=== PATIENT | female | born 1985 | race Caucasian/White ===

== ENCOUNTER 2023-06-13 20:12 | Outpatient (REF) | payer OTHER, SELFPAY ==
[2023-06-17 13:09] LABS: Age Gdln ACOG Testing Note (.); HPV Aptima Negative (Negative); IGP, Aptima HPV, rfx 16/18,45 Note (.)
== END 2023-06-13 20:13 | disposition home or self-care (01) ==
LOC: LAB 20:12
PROVIDERS: Visit Provider Obstetrics & Gynecology
DX: Z01.419 Encounter for gynecological examination (general) (routine) without abnormal findings (principal)
CPT/HCPCS: 87624; G0145

== ENCOUNTER 2024-06-14 18:54 | Outpatient (REF) | payer OTHER, SELFPAY ==
--- OUTSIDE RECORDS SUMMARY | 2024-06-14 19:08 | XMS_ITS | CCD ---
Author Organization [facility] Care Team Providers Care Collator Hand Name Role Phone DONAVANJENNINICHOLE Cao Attending Unavailable MARIAM HICKMAN Referring Unavailable NEO MONTALVO Primary Care Unavailable Les Bridges Admitting Unavailable Les Bridges Attending Unavailable NEO MONTALVO Primary Care Unavailable HyannisLes saldaña RJeffy Admitting Unavailable Les Bridges Attending Unavailable Lisa Lord Attending Unavailable NEO MONTALVO Primary Care Unavailable Lisa Lord Admitting Unavailable NO, PHYSICIAN Primary Care Unavailable EMILI EDOUARD Attending Unavailable EMILI EDOUARD Admitting Unavailable EMILI EDOUARD Referring Unavailable NO, PHYSICIAN Primary Care Unavailable Junior, Evi Primary Care Provider [phone] Juan Rochelle Unavailable Unavailable Juan, Rochelle Unavailable Unavailable Juan, Rochelle Unavailable Unavailable Juan, Rochelle Unavailable Unavailable Juan Rochelle Unavailable Unavailable Evi Pacheco Primary Care Provider [phone] No, Physician Primary Care Provider Unavailabl e No, Physician Primary Care Provider Unavailabl e Santiago James Primary Care Provider Evi Pacheco MD Primary Care Provider Juan LARA Rohcelle Unavailable Unavailable Evi Pacheco MD Primary Care Provider [phone] Juan LARA Rochelle Unavailable Unavailable JUNIOR, EVI Primary Care Unavailable JUNIOR, EVI Admitting Unavailable JUNIOR, EVI Primary Care Unavailable JUNIOR, EVI Primary Care Unavailable KULDEEP PURCELL Attending Unavailable SERENITY MONTENEGRO Attending Unavailable SERENITY MONTENEGRO Referring Unavailable JUNIOR, EVI Primary Care Unavailable JUNIOR, EVI Primary Care Unavailable LAMBERTO RUSSO Attending Unavailable LAMBERTO RUSSO Referring Unavailable JUNIOR, EVI Primary Care Unavailable LAMBERTO RUSSO Attending Unavailable LAMBERTO RUSSO Referring Unavailable JUNIOR, EVI Primary Care Unavailable LAMBERTO RUSSO Attending Unavailable LAMBERTO RUSSO Referring Unavailable JUNIOR, EVI Primary Care Unavailable LAMBERTO RUSSO Attending Unavailable LAMBERTO RUSSO Referring Unavailable JUNIOR, EVI Primary Care Unavailable LAMBERTO RUSSO Attending Unavailable LAMBERTO RUSSO Referring Unavailable JUNIOR, EVI Primary Care Unavailable JUNIOR, EVI Primary Care Unavailable JUNIOR, EVI Attending Unavailable JUNIOR, EVI Referring Unavailable JUNIOR, EVI Primary Care Unavailable LAMBERTO RUSSO Attending Unavailable LAMBERTO RUSSO Referring Unavailable JUNIOR, EVI Primary Care Unavailable Juan ASSEMBLER CHASSIS, Rochelle Unavailable Unavailable SELF, SELF Referring Unavailable MARIA GUADALUPE SINGH Attending Unavailable Junior ALATORRE, [place] Primary Care Provider [phone] Juan LARA, Rochelle Unavailable Unavailable OCTAVIANO, DR ABURTO Attending Unavailable OCTAVIANO, DR ABURTO Consulting Unavailable REQUEST, NONE LISTED Primary Care Unavaila ble OCTAVIANO, DR ABURTO Admitting Unavailable OCTAVIANO, DR ABURTO Admitting Unavailable OCTAVIANO, DR ABURTO Attending Unavailable OCTAVIANO, DR ABURTO Consulting Unavailable REQUEST, NONE LISTED Primary Care Unavaila MARIA GUADALUPE Larson Consulting Unavailable Junior ALATORRE, [place] Primary Care Provider [phone] Juan ASSEMBLER CHASSIS, Rochelle Unavailable Unavailable CRISELDA VIVEROS Attending Unavailable JUNIOR, EVI Primary Care Unavailable BETINA POP Admitting Unavail able JUNIOR, EVI Primary Care Unavailable BETINA POP Referring Unavail able LAMBERTO RUSSO Attending Unavailable JUNIOR, EVI Primary Care Unavailable LAMBERTO RUSSO Attending Unavailable JUNIOR, EVI Primary Care Unavailable JUNIOR, EVI Primary Care Unavailable LAMBERTO RUSSO Attending Unavailable LAMBERTO RUSSO Attending Unavailable JUNIOR, EVI Primary Care Unavailable DAVON LÓPEZ Referring Unavailable Marcia GRIMM Primary Care Unavailable JUNIOR, EVI Primary Care Unavailable BETINA POP Attending Unavail able JUNIOR, EVI Primary Care Unavailable BETINA POP Attending Unavail able JUNIOR, EVI Primary Care Unavailable BETINA POP Attending Unavail EVI Fagan Primary Care Unavailable BETINA POP Attending Unavail able EVI PACHECO Primary Care Unavailable BETINA POP Attending Unavail able EVI PACHECO Primary Care Unavailable BETINA POP Attending Unavail able BETINA POP Attending Unavail able EVI PACHECO Primary Care Unavailable Allergies Allergy Classification Reported Allergen(s) Allergy Type Date of Onset Reaction(s) Facility (1 source) No Known Medication Allergies; Translations: [No Known Medication Allergies] Propensity to adverse reactions to drug (disorder) Repository Medications Current Medications Medication Drug Class(es) Dates Sig (Normalized) Sig (Original) acetaminophen 325 mg oral tablet (20 sources) take 2 tablets by mouth every six hours as needed acetaminophen (TYLENOL) 325 MG tablet Take 650 mg by mouth every 6 (six) hours as needed for pain . 0 Active [id number] actuat albuterol 0.09 mg/actuat metered dose inhaler (20 sources) beta2-Adrenergic Agonist Start: 06-08-2021 End: 06-08-2022 take 2 puff(s) by inhalation every six hours as needed for cough albuterol 90 mcg/actuation inhaler Indications: Cough Inhale 2 (two) puffs every 6 (six) hours as needed for shortness of breath or cough . 18 g 06/08/2021 Active amoxicillin 875 mg / clavulanate 125 mg oral tablet (1 source) Penicillin-class Antibacterial Start: 10-10-2020 End: 10-17-2020 take 1 tablet by mouth twice daily amoxicillin-clavul anate (AUGMENTIN) 875-125 mg per tablet Indications: Sinusitis, unspecified chronicity, unspecified location Take 1 (one) tablet by mouth 2 (two) times a day for 7 days . 14 tablet 0 10/10/2020 10/17/2020 Active aspirin 81 mg delayed release oral tablet (19 sources) Platelet Aggregation Inhibitor, Nonsteroidal Anti-inflammatory Drug take 1 tablet by mouth once daily aspirin 81 MG EC tablet Take 81 mg by mouth daily . 0 Active benzonatate 200 mg oral capsule (3 sources) Non-narcotic Antitussive Start: 06-08-2021 End: 06-15-2021 take 1 capsule by mouth three times daily as needed for cough benzonatate (TESSALON) 200 MG capsule Indications: Cough Take 1 (one) capsule (200 mg total) by mouth 3 (three) times a day as needed for cough . 20 capsule 0 06/08/2021 06/15/2021 Active Start: 10-10-2020 End: 10-17-2020 take 1 capsule by mouth three times daily as needed for cough benzonatate (TESSALON) 200 MG capsule Indications: Sinusitis, unspecified chronicity, unspecified location Take 1 (one) capsule (200 mg total) by mouth 3 (three) times a day as needed for cough . 20 capsule 0 10/10/2020 10/17/2020 Active Budesonide / formoterol (20 sources) Corticosteroid, beta2-Adrenergic Agonist Start: 06-02-2021 take 2 puff(s) by inhalation twice daily budesonide-formoteroL (Symbicort) 80-4.5 mcg/actuation inhaler Indications: Mild intermittent asthma, unspecified whether complicated Inhale 2 (two) puffs 2 (two) times a day . 1 each 2 06/02/2021 Active Start: 06-02-2021 End: 06-02-2022 take 2 puff(s) by inhalation twice daily budesonide-formoteroL (Symbicort) 80-4.5 mcg/actuation inhaler Indications: Mild intermittent asthma, unspecified whether complicated Inhale 2 (two) puffs 2 (two) times a day . 1 each 2 06/02/2021 06/02/2022 Active 24 hr buPROPion hydrochloride 300 mg extended release oral tablet (20 sources) Aminoketone Start: 03-15-2023 End: 04-17-2024 take 1 tablet by mouth once daily buPROPion (WELLBUTRIN XL) 300 MG 24 hr tablet Indications: Atypical eating disorder Take 1 (one) tablet (300 mg total) by mouth daily . 30 tablet 2 04/17/2024 Active Start: 01-21-2023 take 1 tablet by lakia once daily buPROPion (WELLBUTRIN XL) 300 MG 24 hr tablet Indications: Atypical eating disorder Take 1 (one) tablet (300 mg total) by mouth daily . 30 tablet 1 01/21/2023 Active Start: 10-27-2022 End: 12-10-2022 take 1 tablet by mouth once daily buPROPion (WELLBUTRIN XL) 300 MG 24 hr tablet Indications: Atypical eating disorder Take 1 (one) tablet (300 mg total) by mouth daily . 30 tablet 1 12/10/2022 Active Start: 01-06-2022 End: 09-08-2023 take 1 tablet by mouth once daily buPROPion (WELLBUTRIN XL) 150 MG 24 hr tablet Indications: Atypical eating disorder Take 1 (one) tablet (150 mg total) by mouth daily . 30 tablet 1 09/08/2022 10/27/2022 Discontinued (Reorder (Suppress CancelRx Message to Pharmacy)) Start: 04-24-2020 End: 01-06-2022 take 1 tablet by mouth once daily buPROPion (WELLBUTRIN XL) 300 MG 24 hr tablet Indications: Anxiety and depression Take 1 (one) tablet (300 mg total) by mouth daily . 30 tablet 11 04/24/2020 01/06/2022 Discontinued Start: 04-23-2020 End: 04-23-2021 take 1 tablet by mouth once daily buPROPion (Wellbutrin XL) 150 MG 24 hr tablet Indications: Anxiety and depression Take 1 (one) tablet (150 mg total) by mouth daily . 30 tablet 11 04/23/2020 04/23/2021 Active Start: 12-20-2019 End: 12-19-2020 take 1 tablet by mouth twice daily buPROPion (WELLBUTRIN SR) 150 MG 12 hr tablet Indications: Anxiety and depression Take 1 (one) tablet (150 mg total) by mouth 2 (two) times a day . 60 tablet 11 12/20/2019 04/23/2020 Discontinued Start: 11-16-2019 End: 11-15-2020 take 1 tablet by mouth twice daily buPROPion (WELLBUTRIN) 100 MG tablet Indications: Anxiety and depression Take 1 (one) tablet (100 mg total) by mouth 2 (two) times a day . 60 tablet 1 11/16/2019 11/15/2020 Active Start: 10-29-2019 End: 11-16-2019 take 1 tablet by mouth twice daily buPROPion (WELLBUTRIN) 75 MG tablet Indications: Anxiety and depression Take 1 (one) tablet (75 mg total) by mouth 2 (two) times a day . 60 tablet 0 10/29/2019 11/16/2019 Discontinued codeine phosphate 2 mg/ml / guaiFENesin 20 mg/ml oral solution (2 sources) Opioid Agonist Start: 06-08-2021 End: 06-18-2021 codeine-guaiFENesin (TUSSI-ORGANIDIN NR) 10-100 mg/5 mL syrup Indications: Cough Take 5 mL by mouth 3 (three) times a day as needed for cough (Days supply per fill: 10) . 118 mL 0 06/08/2021 06/18/2021 Active docusate sodium 50 mg / sennosides, fpc 8.6 mg oral tablet (1 source) Start: 04-17-2024 take 1 tablet by mouth once daily senna-docusate (SENNA-S) 8.6-50 mg Indications: Constipation, unspecified constipation type Take 1 (one) tablet by mouth daily . 30 tablet 5 04/17/2024 Active dulaglutide (20 sources) GLP-1 Receptor Agonist Start: 04-17-2024 dulaglutide (Trulicity) 4.5 mg/0.5 mL Pen Indications: Insulin resistance Inject 0.5 mL (4.5 mg total) under the skin every 7 days . 2 mL 5 04/17/2024 Active Start: 03-13-2024 dulaglutide (T rulicity) 3 mg/0.5 mL Pen Indications: Insulin resistance Inject 0.5 mL (3 mg total) under the skin every 7 days . 2 mL 2 03/13/2024 Active Start: 04-15-2022 End: 06-17-2022 dulaglutide (Trulicity) 3 mg /0.5 mL Pen Indications: Insulin resistance Inject 0.5 mL (3 mg total) under the skin every 7 days . 2 mL 1 04/15/2022 06/17/2022 Discontinued Start: 04-15-2022 dulaglutide (T rulicity) 3 mg/0.5 mL Pen Indications: Insulin resistance Inject 0.5 mL (3 mg total) under the skin every 7 days . 2 mL 1 04/15/2022 Active Start: 02-11-2022 End: 04-15-2022 dulaglutide (Trulicity) 1.5 mg/0.5 mL Pen Indications: Insulin resistance Inject 0.5 mL (1.5 mg total) under the skin every 7 days . 2 mL 1 03/15/2022 04/15/2022 Discontinued Start: 11-30-2021 End: 02-11-2022 dulaglutide (Trulicity) 0.75 mg/0.5 mL Pen Indications: Insulin resistance Inject 0.5 mL (0.75 mg total) under the skin every 7 days Failed metformin . 2 mL 1 01/06/2022 02/11/2022 Discontinued Start: 07-03-2021 End: 09-09-2021 dulaglutide (Trulicity) 0.75 mg/0.5 mL Pen Inject 0.5 mL (0.75 mg total) under the skin every 7 days On hold for metformin trial . 2 mL 0 07/31/2021 09/09/2021 Discontinued ergocalciferol 1.25 mg oral capsule (20 sources) Provitamin D2 Compound Start: 07-14-2023 take 1 capsule by mouth two times weekly at mealtime ergocalciferol (ERGOCALCIFEROL) 1,250 mcg (50,000 unit) capsule Indications: Vitamin D deficiency Take 1 (one) capsule (50,000 Units total) by mouth twice weekly Take with 500mg vitamin c and fatty meal . 8 capsule 1 07/14/2023 Active Start: 04-28-2021 End: 01-27-2024 take 1 capsule by mouth every week at mealtime ergocalciferol (ERGOCALCIFEROL) 1,250 mcg (50,000 unit) capsule Indications: Vitamin D deficiency Take 1 (one) capsule (50,000 Units total) by mouth once a week Take with 500mg vitamin c and fatty meal . 4 capsule 1 01/27/2023 07/14/2023 Discontinued (Reorder (Suppress CancelRx Message to Pharmacy)) ferrous sulfate 325 mg oral tablet (20 sources) Start: 04-28-2021 End: 01-06-2023 take 1 tablet by mouth every other day ferrous sulfate 325 (65 FE) MG tablet Indications: Iron deficiency Take 1 (one) tablet (325 mg total) by mouth every other day Take with 500mg of vitamin c . 15 tablet 1 01/06/2022 Active FLUoxetine 40 mg oral capsule (15 sources) Serotonin Reuptake Inhibitor Start: 09-05-2020 End: 12-04-2020 take 1 capsule by mouth once daily FLUoxetine (PROZAC) 40 MG capsule Indications: Anxiety and depression Take 1 (one) capsule (40 mg total) by mouth daily . 90 capsule 0 09/05/2020 Active Start: 06-10-2020 End: 09-08-2020 take 1 capsule by mouth once daily FLUoxetine (PROZAC) 20 MG capsule Indications: Anxiety and depression Take 1 (one) capsule (20 mg total) by mouth daily . 90 capsule 0 06/10/2020 09/05/2020 Discontinued (Reorder) furosemide 20 mg oral tablet (20 sources) Loop Diuretic take 1 tablet by mouth once daily as needed furosemide (LASIX) 20 MG tablet Indications: edema Take 1 (one) tablet (20 mg total) by mouth daily as needed Reasons: visible water retention. Active take 1 tablet by mouth twice key ly furosemide (LASIX) 20 MG tablet Indications: edema Take 1 (one) tablet (20 mg total) by mouth 2 (two) times a day Reasons: visible water retention. 0 Active ibuprofen 800 mg oral tablet (20 sources) Nonsteroidal Anti-inflammatory Drug take 1 tablet by mouth every six hours as needed ibuprofen (ADVIL,MOTRIN) 800 MG tablet Take 800 mg by mouth every 6 (six) hours as needed for pain . 0 Active inhaler, assist devices (OPTICHAMBER ADVANTAGE) Spcr (20 sources) Start: 06-02-20 inhaler, assist devices (OPTICHAMBER ADVANTAGE) Spcr Indications: Mild intermittent asthma, unspecified whether complicated As directed . 1 each 06/02/2021 Active Start: 06-02-2021 inhaler, german t devices (OPTICHAMBER ADVANTAGE) Spcr Indications: Mild intermittent asthma, unspecified whether complicated As directed . 1 each 0 06/02/2021 Active levothyroxine sodium 0.15 mg oral tablet (20 sources) l-Thyroxine Start: 01-27-2023 take 1 tablet by mouth once daily levothyroxine (SYNTHROID, LEVOTHROID) 150 MCG tablet Take 1 (one) tablet (150 mcg total) by mouth once daily . 30 tablet 1 01/27/2023 Active Start: 02-12-2022 End: 01-27-2023 take 1 tablet by mouth once daily levothyroxine (SYNTHROID, LEVOTHROID) 137 MCG tablet Take 1 (one) tablet (137 mcg total) by mouth once daily . 30 tablet 1 01/12/2023 01/27/2023 Discontinued (Reorder (Suppress CancelRx Message to Pharmacy)) Start: 01-06-2022 End: 02-12-2022 take 1 tablet by mouth once daily in the morning levothyroxine (SYNTHROID, LEVOTHROID) 150 MCG tablet Indications: Other specified hypothyroidism Take 1 (one) tablet (150 mcg total) by mouth every morning . 30 tablet 1 01/06/2022 02/12/2022 Discontinued Start: 04-28-2021 End: 06-02-2022 take 1 tablet by mouth once daily in the morning levothyroxine (SYNTHROID, LEVOTHROID) 175 MCG tablet Indications: Other specified hypothyroidism Take 1 (one) tablet (175 mcg total) by mouth every morning . 30 tablet 3 06/02/2021 01/06/2022 Discontinued (Reorder) Start: 08-24-2019 End: 09-01-2021 take 1 tablet by mouth once daily levothyroxine (SYNTHROID, LEVOTHROID) 200 MCG tablet Indications: Other specified hypothyroidism Take 1 (one) tablet (200 mcg total) by mouth once daily . 90 tablet 1 09/01/2020 04/28/2021 Discontinued (Reorder) Start: 01-05-2019 End: 12-26-2020 take 1 tablet by mouth once daily levothyroxine (SYNTHROID, LEVOTHROID) 25 MCG tablet Indications: Other specified hypothyroidism Take 1 (one) tablet (25 mcg total) by mouth daily . 90 tablet 1 12/27/2019 12/26/2020 Active End: 08-24-2019 take 1 tablet by mouth once daily levothyroxine (SYNTHROID, LEVOTHROID) 175 MCG tablet Take 175 mcg by mouth daily . 0 08/24/2019 Discontinued ondansetron 4 mg disintegrating oral tablet (20 sources) Serotonin-3 Receptor Antagonist Start: 11-30-2021 End: 12-07-2021 take 1 tablet by mouth every eight hours as needed for nausea ondansetron (ZOFRAN-ODT) 4 MG disintegrating tablet Dissolve 1 (one) tablet (4 mg total) on top of tongue every 8 (eight) hours as needed for nausea . 20 tablet 11/30/2021 Active prenat.vits,ronny,min- iron-folic Tab (20 sources) prenat.vits,ronny, min- iron-folic Tab Take by mouth . 0 Active pyridoxine hydrochloride 25 mg oral tablet (20 sources) Start: 04-28-2021 End: 04-28-2022 take 1 tablet by mouth once daily pyridoxine, vitamin B6, (vitamin B-6) 25 MG tablet Indications: Vitamin B6 deficiency Take 1 (one) tablet (25 mg total) by mouth daily . 30 tablet 2 04/28/2021 Active sertraline 25 mg oral tablet (20 sources) Serotonin Reuptake Inhibitor Start: 04-14-2021 End: 03-14-2024 take 1 tablet by mouth once daily sertraline (ZOLOFT) 25 MG tablet Indications: Depression, unspecified depression type Take 1 (one) tablet (25 mg total) by mouth nightly . 30 tablet 2 11/03/2023 Active tirzepatide (Mounjaro) 10 mg/0.5 mL Pen (2 sources) Start: 07-27-2022 End: 09-08-2022 tirzepatide (Mounjaro) 10 mg/0.5 mL Pen Indications: type 2 diabetes mellitus Inject 0.5 mL (10 mg total) under the skin every 7 days Reasons: type 2 diabetes mellitus. 2 mL 1 07/27/2022 09/08/2022 Discontinued Start: 07-27-2022 tirzepatide (M ounjaro) 10 mg/0.5 mL Pen Indications: type 2 diabetes mellitus Inject 0.5 mL (10 mg total) under the skin every 7 days Reasons: type 2 diabetes mellitus. 2 mL 1 07/27/2022 Active tirzepatide (Mounjaro) 12.5 mg/0.5 mL Pen (6 sources) Start: 02-16-2023 End: 05-09-2023 tirzepatide (Mounjaro) 12.5 mg/0.5 mL Pen Inject 0.5 mL (12.5 mg total) under the skin every 7 days . 2 mL 1 02/16/2023 05/09/2023 Discontinued Start: 02-16-2023 tirzepatide (M ounjaro) 12.5 mg/0.5 mL Pen Inject 0.5 mL (12.5 mg total) under the skin every 7 days . 2 mL 1 02/16/2023 Active Start: 10-22-2022 End: 10-27-2022 tirzepatide (Sulaimanjaro) 12.5 mg/0.5 mL Pen Indications: type 2 diabetes mellitus Inject 0.5 mL (12.5 mg total) under the skin every 7 days Reasons: type 2 diabetes mellitus. 2 mL 1 10/22/2022 10/27/2022 Discontinued Start: 09-08-2022 tirzepatide (Rajiv quiroz) 12.5 mg/0.5 mL Pen Indications: type 2 diabetes mellitus Inject 0.5 mL (12.5 mg total) under the skin every 7 days Reasons: type 2 diabetes mellitus. 2 mL 1 09/08/2022 Active topiramate 25 mg oral tablet (20 sources) Start: 06-17-2022 take 1 tablet by mouth once daily topiramate (TOPAMAX) 25 MG tablet Take 1 (one) tablet (25 mg total) by mouth daily . 30 tablet 1 06/17/2022 Active Start: 10-23-2021 End: 04-15-2023 take 1 tablet by mouth twice daily, then take 1 tablet by mouth at lunch, then take 1 tablet by mouth at dinner topiramate (TOPAMAX) 50 MG tablet Take 1 (one) tablet (50 mg total) by mouth 2 (two) times a day One with lunch and one with dinner . 60 tablet 1 04/15/2022 06/17/2022 Discontinued Start: 09-09-2021 End: 09-09-2022 take 3 tablets by mouth twice daily topiramate (TOPAMAX) 50 MG tablet Take 3 (three) tablets (150 mg total) by mouth 2 (two) times a day . 180 tablet 1 09/09/2021 10/23/2021 Discontinued (Reorder) Start: 07-03-2021 End: 10-29-2021 take 1 tablet by mouth twice daily topiramate (TOPAMAX) 100 MG tablet Indications: Obesity, Class III, BMI 40-49.9 (morbid obesity) (HCC) Take 1 (one) tablet (100 mg total) by mouth 2 (two) times a day . 60 tablet 1 07/31/2021 09/09/2021 Discontinued Start: 08-29-2020 End: 07-13-2021 take 1 tablet by mouth twice daily topiramate (TOPAMAX) 25 MG tablet Indications: Migraine with aura and without status migrainosus, not intractable Take 1 (one) tablet (25 mg total) by mouth 2 (two) times a day . 60 tablet 1 04/14/2021 04/28/2021 Discontinued Start: 03-07-2020 End: 08-31-2021 take 1 tablet by mouth twice daily topiramate (TOPAMAX) 50 MG tablet Indications: Obesity, Class II, BMI 35-39.9 Take 1 (one) tablet (50 mg total) by mouth 2 (two) times a day . 60 tablet 1 06/02/2021 07/03/2021 Discontinued (Reorder) Start: 12-20-2019 End: 12-19-2020 take 1 tablet by mouth once daily topiramate (Topamax) 25 MG tablet Indications: Migraine with aura and without status migrainosus, not intractable Take 1 (one) tablet (25 mg total) by mouth daily . 90 tablet 1 02/25/2020 03/07/2020 Discontinued (Reorder) vitamin b12 1 mg sublingual tablet (20 sources) Vitamin B12 Start: 04-28-2021 End: 07-14-2023 cyanocobalamin, vitamin B-12, 1,000 mcg Subl Indications: Insulin resistance Place 1 (one) tablet (1,000 mcg total) under the tongue daily . 30 tablet 2 07/14/2023 Active zolpidem tartrate 10 mg oral tablet (2 sources) gamma-Aminobuty yoly Acid-ergic Agonist Start: 05-06-2020 End: 06-05-2020 take 1 tablet by mouth once daily as needed for sleep zolpidem (Ambien) 10 mg tablet Indications: Sleep disturbance Take 1 (one) tablet (10 mg total) by mouth nightly as needed for sleep . 30 tablet 0 05/06/2020 06/05/2020 Active Start: 03-07-2020 End: 03-14-2020 take 1 tablet by mouth once daily as needed for sleep zolpidem (Ambien) 10 mg tablet Indications: Sleep disturbance Take 1 (one) tablet (10 mg total) by mouth nightly as needed for sleep . 7 tablet 0 03/07/2020 03/14/2020 Active zonisamide 50 mg oral capsule (17 sources) Anti-epileptic Agent Start: 07-13-2023 End: 04-17-2024 take 1 capsule by mouth once daily in the evening zonisamide (ZONEGRAN) 50 MG capsule Indications: Atypical eating disorder Take 1 (one) capsule (50 mg total) by mouth once daily Take in evening . 30 capsule 2 04/17/2024 Active Start: 03-15-2023 End: 07-13-2023 take 1 capsule by mouth once daily in the evening zonisamide (ZONEGRAN) 25 MG capsule Indications: Atypical eating disorder Take 1 (one) capsule (25 mg total) by mouth once daily Take in evening . 30 capsule 2 05/09/2023 07/13/2023 Discontinued (Reorder (Suppress CancelRx Message to Pharmacy)) Completed/Discontinued Medications Medication Drug Class(es) Dates Sig (Normalized) Sig (Original) arm brace Misc (18 sources) Start: 04-10-2019 End: 11-16-2019 arm brace Misc Indications: Tenosynovitis of right wrist Wear the brace every daily. . 1 each 0 04/10/2019 11/16/2019 Discontinued Start: 04-10-2019 arm brace Misc Indications: Tenosynovitis of right wrist Wear the brace every daily. . 1 each 0 04/10/2019 Active betamethasone 0.5 mg/ml / clotrimazole 10 mg/ml topical cream (17 sources) Azole Antifungal, Corticosteroid Start: 04-25-2019 End: 04-24-2020 clotrimazole-betamethasone (LOTRISONE) cream Indications: Rash Apply topically 2 (two) times a day . 45 g 1 04/25/2019 11/16/2019 Discontinued busPIRone hydrochloride 5 mg oral tablet (20 sources) Start: 11-12-2020 End: 06-08-2022 take 1 tablet by mouth three times daily busPIRone (BUSPAR) 5 MG tablet Indications: Anxiety and depression Take 1 (one) tablet (5 mg total) by mouth 3 (three) times a day . 90 tablet 1 06/08/2021 01/06/2022 Discontinued (Patient Discharge) docusate sodium 100 mg oral capsule (20 sources) Start: 08-28-2021 End: 08-28-2022 take 1 capsule by mouth twice daily docusate sodium (COLACE) 100 MG capsule Indications: Internal hemorrhoids Take 1 (one) capsule (100 mg total) by mouth 2 (two) times a day . 60 capsule 11 08/28/2021 01/06/2022 Discontinued take 1 capsule by mouth twice da roxy docusate sodium (COLACE) 100 MG capsule Take 100 mg by mouth 2 (two) times a day . 0 Active hydrocortisone 25 mg/ml topical cream (6 sources) Corticosteroid Start: 08-28-2021 End: 08-28-2022 hydrocortisone (ANUSOL-HC) 2.5 % rectal cream Indications: Internal hemorrhoids Insert into the rectum 2 (two) times a day . 30 g 0 08/28/2021 01/06/2022 Discontinued 24 hr metFORMIN hydrochloride 500 mg extended release oral tablet (7 sources) Biguanide Start: 09-09-2021 End: 09-09-2022 take 1 tablet by mouth once daily at lunch metFORMIN (GLUCOPHAGE-XR) 750 MG 24 hr tablet Indications: Insulin resistance Take 1 (one) tablet (750 mg total) by mouth daily with lunch During lunch . 30 tablet 1 09/09/2021 10/23/2021 Discontinued (Reorder) Start: 07-31-2021 End: 10-23-2022 take 1 tablet by mouth once daily at lunch metFORMIN (GLUCOPHAGE-XR) 500 MG 24 hr tablet Indications: Insulin resistance Take 1 (one) tablet (500 mg total) by mouth daily with lunch During lunch . 30 tablet 1 10/23/2021 11/30/2021 Discontinued miscellaneous medical supply Misc (13 sources) Start: 04-28-2021 End: 01-06-2022 miscellaneous medical supply Misc Indications: Obesity, Class III, BMI 40-49.9 (morbid obesity) ([facility]) Weight Scale dx obesity class III . 1 each 0 04/28/2021 01/06/2022 Discontinued Start: 04-28-2021 miscellaneous medical supply Misc Indications: Obesity, Class III, BMI 40-49.9 (morbid obesity) ([facility]) Weight Scale dx obesity class III . 1 each 0 04/28/2021 Active naltrexone hydrochloride 50 mg oral tablet (3 sources) Opioid Antagonist Start: 07-31-2021 End: 09-09-2021 take 0.25 tablet by mouth once daily at breakfast, then take 0.25 tablet by mouth at breakfast, then take 0.25 tablet by mouth at lunch naltrexone (DEPADE, REVIA) 50 mg tablet Indications: Atypical eating disorder 1/4 tab po every day with breakfast for 2 weeks then 1/4 tab po with breakfast and 1/4 tab with lunch . 15 tablet 1 07/31/2021 09/09/2021 Discontinued phentermine hydrochloride 37.5 mg oral tablet (13 sources) Sympathomimetic Amine Anorectic Start: 01-06-2022 End: 05-17-2022 take 1 tablet by mouth once daily in the morning phentermine (ADIPEX-P) 37.5 mg tablet Indications: Obesity, morbid, BMI 50 or higher (HCC) Take 1 (one) tablet (37.5 mg total) by mouth every morning (Days supply per fill: 30) BMI 50.07 now 45.85 round #3 . 30 tablet 0 03/15/2022 05/17/2022 Discontinued Start: 04-09-2020 End: 06-08-2020 take 1 tablet by mouth once daily in the morning, then take 3 tablets by mouth phentermine (ADIPEX-P) 37.5 mg tablet Indications: Obesity, Class II, BMI 35-39.9 , Atypical eating disorder Take 1 (one) tablet (37.5 mg total) by mouth every morning Round 2 BMI 42.3, round 3 Start: 05/09/20. 30 tablet 0 05/09/2020 06/08/2020 Active Start: 03-07-2020 End: 04-06-2020 take 1 tablet by mouth once daily in the morning, then take 1 tablet by mouth phentermine (ADIPEX-P) 37.5 mg tablet Indications: Atypical eating disorder , Obesity, Class II, BMI 35-39.9 Take 1 (one) tablet (37.5 mg total) by mouth every morning Round 1 bmi 42.98 . 30 tablet 0 03/07/2020 04/06/2020 Active predniSONE 10 mg oral tablet (9 sources) Start: 06-29-2021 End: 01-06-2022 predniSONE (DELTASONE) 10 MG tablet Indications: Cough 4 tablets daily x 3 days, 3 tablets daily x 3 days, 2 tablets daily x 3 days, 1 tablet daily x 3 days . 30 tablet 0 06/29/2021 01/06/2022 Discontinued SUMAtriptan 50 mg oral tablet (20 sources) Serotonin-1b and Serotonin-1d Receptor Agonist Start: 12-20-2019 End: 01-06-2022 take 1 tablet by mouth every two hours as needed SUMAtriptan (IMITREX) 50 MG tablet Indications: Migraine with aura and without status migrainosus, not intractable Take 1 (one) tablet (50 mg total) by mouth every 2 (two) hours as needed for migraine Max of 200 mg in 24hrs . 10 tablet 1 12/20/2019 01/06/2022 Discontinued (Patient Discharge) tirzepatide (Mounjaro) 15 mg/0.5 mL Pen (20 sources) Start: 03-06-2024 End: 04-17-2024 tirzepatide (Mounjaro) 15 mg/0.5 mL Pen Indications: Insulin resistance Inject 0.5 mL (15 mg total) under the skin every 7 days . 2 mL 5 03/06/2024 04/17/2024 Discontinued Start: 03-06-2024 tirzepatide (M ounjaro) 15 mg/0.5 mL Pen Indications: Insulin resistance Inject 0.5 mL (15 mg total) under the skin every 7 days . 2 mL 5 03/06/2024 Active Start: 11-18-2023 End: 03-06-2024 tirzepatide (Mounjaro) 15 mg /0.5 mL Pen Indications: Insulin resistance Inject 0.5 mL (15 mg total) under the skin every 7 days . 2 mL 5 11/18/2023 03/06/2024 Discontinued (Reorder (Suppress CancelRx Message to Pharmacy)) Start: 11-18-2023 tirzepatide (M ounjaro) 15 mg/0.5 mL Pen Indications: Insulin resistance Inject 0.5 mL (15 mg total) under the skin every 7 days . 2 mL 5 11/18/2023 Active Start: 07-13-2023 End: 11-18-2023 tirzepatide (Mounjaro) 15 mg /0.5 mL Pen Indications: Insulin resistance Inject 0.5 mL (15 mg total) under the skin every 7 days . 2 mL 5 07/13/2023 11/18/2023 Discontinued (Reorder (Suppress CancelRx Message to Pharmacy)) Start: 07-13-2023 tirzepatide (M ounjaro) 15 mg/0.5 mL Pen Indications: Insulin resistance Inject 0.5 mL (15 mg total) under the skin every 7 days . 2 mL 5 07/13/2023 Active Start: 06-09-2023 End: 07-13-2023 tirzepatide (Mounjaro) 15 mg /0.5 mL Pen Indications: Insulin resistance Inject 0.5 mL (15 mg total) under the skin every 7 days . 2 mL 5 06/09/2023 07/13/2023 Discontinued (Reorder (Suppress CancelRx Message to Pharmacy)) Start: 04-07-2023 tirzepatide (M ounjaro) 15 mg/0.5 mL Pen Indications: type 2 diabetes mellitus Inject 0.5 mL (15 mg total) under the skin every 7 days Reasons: type 2 diabetes mellitus. 2 mL 5 04/07/2023 Active Start: 01-21-2023 End: 04-07-2023 tirzepatide (Mounjaro) 15 mg /0.5 mL Pen Indications: type 2 diabetes mellitus Inject 0.5 mL (15 mg total) under the skin every 7 days Reasons: type 2 diabetes mellitus. 2 mL 5 01/21/2023 04/07/2023 Discontinued (Reorder (Suppress CancelRx Message to Pharmacy)) Start: 01-21-2023 tirzepatide (M ounjaro) 15 mg/0.5 mL Pen Indications: type 2 diabetes mellitus Inject 0.5 mL (15 mg total) under the skin every 7 days Reasons: type 2 diabetes mellitus. 2 mL 5 01/21/2023 Active Start: 10-27-2022 tirzepatide (M ounjaro) 15 mg/0.5 mL Pen Indications: type 2 diabetes mellitus Inject 0.5 mL (15 mg total) under the skin every 7 days Reasons: type 2 diabetes mellitus. 2 mL 2 10/27/2022 Active tirzepatide (Mounjaro) 5 mg/ 0.5 mL Pen (2 sources) Start: 05-17-2022 End: 05-19-2022 tirzepatide (Mounjaro) 5 mg/ 0.5 mL Pen Indications: Insulin resistance , BMI 40.0-44.9, adult (HCC) Inject 0.5 mL (5 mg total) under the skin every 7 days . 2 mL 1 05/17/2022 05/19/2022 Discontinued Start: 05-17-2022 tirzepatide (M ounjaro) 5 mg/0.5 mL Pen Indications: Insulin resistance , BMI 40.0-44.9, adult (HCC) Inject 0.5 mL (5 mg total) under the skin every 7 days . 2 mL 1 05/17/2022 Active tirzepatide (Mounjaro) 7.5 mg/0.5 mL Pen (6 sources) Start: 06-17-2022 End: 07-27-2022 tirzepatide (Mounjaro) 7.5 mg/0.5 mL Pen Indications: Metabolic syndrome Inject 0.5 mL (7.5 mg total) under the skin every 7 days . 2 mL 1 06/17/2022 07/27/2022 Discontinued Start: 06-17-2022 tirzepatide (M ounjaro) 7.5 mg/0.5 mL Pen Indications: Metabolic syndrome Inject 0.5 mL (7.5 mg total) under the skin every 7 days . 2 mL 1 06/17/2022 Active Start: 05-19-2022 End: 06-17-2022 tirzepatide (Mounjaro) 7.5 m g/0.5 mL Pen Indications: Metabolic syndrome Inject 0.5 mL (7.5 mg total) under the skin every 7 days . 2 mL 1 05/19/2022 06/17/2022 Discontinued (Reorder) Start: 05-19-2022 tirzepatide (M ounjaro) 7.5 mg/0.5 mL Pen Indications: Metabolic syndrome Inject 0.5 mL (7.5 mg total) under the skin every 7 days . 2 mL 1 05/19/2022 Active venlafaxine 37.5 mg oral tablet (14 sources) Serotonin and Norepinephrine Reuptake Inhibitor Start: 08-24-2019 End: 08-23-2020 take 1 tablet by mouth twice daily venlafaxine (EFFEXOR) 37.5 MG tablet Indications: Anxiety and depression Take 1 (one) tablet (37.5 mg total) by mouth 2 (two) times a day . 60 tablet 1 08/24/2019 10/29/2019 Discontinued (Ineffective) Problems Active Problems Problem Classification Problem Date Documented Da te Episodic/Chronic Administrative/social admission (3 sources) Patient encounter status; Translations: [Other specified counseling] Episodic Anxiety disorders (20 sources) Mixed anxiety and depressive disorder; Translations: [Anxiety disorder, unspecified] Onset: 08-24-2019 08-24-2019 Chronic Asthma (1 source) Mild intermittent asthma; Translations: [Mild intermittent asthma, uncomplicated] Chronic Genitourinary symptoms and ill-defined conditions (1 source) Dysuria; Translations: [Dysuria] Episodic Headache; including migraine (20 sources) Migraine; Translations: [Migraine with aura] Onset: 12-20-2019 12-20-2019 Chronic Hodgkin`s disease (20 sources) Hodgkin's disease (clinical); Translations: [Hodgkin lymphoma, unspecified, unspecified site] Onset: 10-25-2011 04-10-2019 Chronic Immunizations and screening for infectious disease (3 sources) Contact with or exposure to other viral diseases; Translations: [Exposure to COVID-19 virus] Onset: 01-20-2022 Episodic Joint disorders and dislocations; trauma-related (1 source) Patellofemoral stress syndrome; Translations: [Patellofemoral disorders, unspecified knee] Chronic Menstrual disorders (4 sources) Excessive and frequent menstruation with regular cycle; Translations: [EXCESS FREQ MENSTRUATION W/REG CYCL] Onset: 01-28-2022 Chronic Miscellaneous mental health disorders (20 sources) Eating disorder; Translations: [Eating disorder, unspecified] Onset: 02-21-2020 02-21-2020 Chronic Mood disorders (9 sources) Depressive disorder; Translations: [Major depressive disorder, single episode, unspecified] Chronic Mood disorders (2 sources) Mood disorders; Translations: [Depression, unspecified] Onset: 11-03-2023 Nutritional deficiencies (20 sources) Vitamin D deficiency; Translations: [Vitamin D deficiency, unspecified] Onset: 01-21-2023 Chronic Other connective tissue disease (1 source) Tendonitis of left wrist; Translations: [Tendonitis of wrist, left] Other gastrointestinal disorders (1 source) Intestinal malabsorption; Translations: [Intestinal malabsorption, unspecified] Chronic Other gastrointestinal disorders (1 source) Diarrhea; Translations: [Diarrhea, unspecified] Episodic Other gastrointestinal disorders (1 source) Constipation; Translations: [Constipation, unspecified] 04-17-2024 Episodic Other gastrointestinal disorders (2 sources) Constipation, unspecified; Translations: [Constipation, unspecified] Onset: 04-17-2024 Episodic Other liver diseases (1 source) Steatosis of liver; Translations: [Fatty (change of) liver, not elsewhere classified] Chronic Other lower respiratory disease (1 source) Dyspnea; Translations: [Dyspnea, unspecified] Episodic Other non-traumatic joint disorders (1 source) Pain in right knee; Translations: [Pain in joint, lower leg] Episodic Other nutritional; endocrine; and metabolic disorders (20 sources) Obese class II; Translations: [Obesity, unspecified] Onset: 10-01-2018 04-10-2019 Chronic Other nutritional; endocrine; and metabolic disorders (20 sources) Insulin resistance; Translations: [Metabolic syndrome] Onset: 03-07-2020 Resolved: 05-06-2020 05-06-2020 Chronic Other nutritional; endocrine; and metabolic disorders (20 sources) Body mass index 40+ - severely obese; Translations: [Body mass index (BMI) 45.0-49.9, adult] Chronic Other nutritional; endocrine; and metabolic disorders (8 sources) Morbid obesity; Translations: [Morbid (severe) obesity due to excess calories] Chronic Other nutritional; endocrine; and metabolic disorders (3 sources) Metabolic syndrome X; Translations: [Metabolic syndrome] Onset: 01-21-2023 Chronic Other nutritional; endocrine; and metabolic disorders (4 sources) Body mass index 30+ - obesity; Translations: [Body mass index (BMI) 38.0-38.9, adult] Chronic Other nutritional; endocrine; and metabolic disorders (2 sources) Obese class I; Translations: [Obesity, unspecified] 12-10-2022 Chronic Other nutritional; endocrine; and metabolic disorders (1 source) Metabolic syndrome; Translations: [Metabolic syndrome] Onset: 01-21-2023 Chronic Other nutritional; endocrine; and metabolic disorders (2 sources) Body mass index (BMI) 31.0-31.9, adult; Translations: [Body mass index (BMI) 31.0-31.9, adult] Onset: 05-16-2024 Chronic Other nutritional; endocrine; and metabolic disorders (2 sources) Obesity, unspecified; Translations: [Obesity, unspecified] Onset: 04-17-2024 Chronic Other nutritional; endocrine; and metabolic disorders (2 sources) Body mass index (BMI) 32.0-32.9, adult; Translations: [Body mass index (BMI) 32.0-32.9, adult] Onset: 04-17-2024 Chronic Other nutritional; endocrine; and metabolic disorders (5 sources) Body mass index 25-29 - overweight; Translations: [Overweight] 05-09-2023 Episodic Other nutritional; endocrine; and metabolic disorders (5 sources) Overweight in adulthood with body mass index of 25 or more but less than 30; Translations: [Body mass index (BMI) 29.0-29.9, adult] 05-09-2023 Episodic Other nutritional; endocrine; and metabolic disorders (20 sources) Obese class II; Translations: [Obesity, Class II, BMI 35-39.9] Onset: 10-01-2018 04-10-2019 Other screening for suspected conditions (not mental disorders or infectious disease) (6 sources) Liver function tests abnormal; Translations: [Other specified abnormal findings of blood chemistry] Onset: 01-13-2022 Episodic Other skin disorders (1 source) Loss of hair; Translations: [Hair loss] Episodic Other upper respiratory infections (1 source) Sinusitis; Translations: [Sinusitis, unspecified chronicity, unspecified location] Episodic Ovarian cyst (1 source) Other ovarian cyst, left side; Translations: [OTHER OVARIAN CYST LEFT SIDE] Onset: 02-02-2022 Episodic Residual codes; unclassified (1 source) Needs influenza immunization; Translations: [Need for influenza vaccination] Episodic Residual codes; unclassified (1 source) Sleep disorder; Translations: [Sleep disorder, unspecified] Episodic Residual codes; unclassified (2 sources) 14 weeks gestation of ; Translations: [14 weeks gestation of ] Onset: 09-01-2018 Spondylosis; intervertebral disc disorders; other back problems (4 sources) Chronic low back pain; Translations: [Low back pain] Episodic Sprains and strains (1 source) Rupture of gastrocnemius tendon; Translations: [Strain of other muscle(s) and tendon(s) of posterior muscle group at lower leg level, right leg, initial encounter] Episodic Superficial injury; contusion (2 sources) Contusion of abdominal wall, initial encounter; Translations: [Contusion of abdominal wall, initial encounter] Onset: 09-01-2018 Episodic Thyroid disorders (20 sources) Hypothyroidism; Translations: [Hypothyroidism, unspecified] Onset: 04-10-2019 04-10-2019 Chronic Unclassified (2 sources) Patient encounter status; Translations: [Annual physical exam] Onset: 11-12-2020 11-12-2020 Unclassified (2 sources) Insulin resistance, unspecified; Translations: [Insulin resistance, unspecified] Onset: 07-13-2023 Unclassified (1 source) Obesity, class 1; Translations: [Obesity, class 1] Onset: 05-16-2024 Past or Other Problems Problem Classification Problem Date Documented Da te Episodic/Chronic Gastrointestinal hemorrhage (20 sources) Rectal hemorrhage; Translations: [Hemorrhage of anus and rectum] Onset: 08-28-2021 Episodic Hemorrhoids (20 sources) Internal hemorrhoids; Translations: [Other hemorrhoids] Onset: 08-28-2021 Episodic Lymphadenitis (20 sources) Lymphadenopathy; Translations: [Generalized enlarged lymph nodes] Onset: 08-24-2019 Resolved: 11-16-2019 08-24-2019 Episodic Malaise and fatigue (6 sources) Fatigue; Translations: [Other fatigue] Onset: 07-13-2023 Episodic Nutritional deficiencies (20 sources) Vitamin B6 deficiency; Translations: [Pyridoxine deficiency] Onset: 01-21-2023 Episodic Other connective tissue disease (20 sources) Swelling of lower limb; Translations: [Other specified soft tissue disorders] Onset: 08-24-2019 08-24-2019 Episodic Other connective tissue disease (20 sources) Tenosynovitis of right wrist; Translations: [Synovitis and tenosynovitis, unspecified] Onset: 04-10-2019 Resolved: 02-08-2020 02-08-2020 Episodic Other connective tissue disease (20 sources) Tenosynovitis of right wrist; Translations: [Tenosynovitis of right wrist] Onset: 04-10-2019 Resolved: 02-08-2020 04-10-2019 Other female genital disorders (20 sources) Vaginal bleeding; Translations: [Abnormal uterine and vaginal bleeding, unspecified] Onset: 08-04-2020 Resolved: 08-28-2021 08-04-2020 Chronic Other female genital disorders (8 sources) Vaginal bleeding; Translations: [Vaginal bleeding] Onset: 08-04-2020 08-04-2020 Episodic Other lower respiratory disease (20 sources) Cough; Translations: [Cough] Onset: 06-08-2021 Episodic Other non-traumatic joint disorders (1 source) Pain in wrist; Translations: [Pain and swelling of left wrist] Episodic Other nutritional; endocrine; and metabolic disorders (20 sources) Weight gain; Translations: [Abnormal weight gain] Onset: 02-06-2020 Resolved: 02-21-2020 02-21-2020 Episodic Other nutritional; endocrine; and metabolic disorders (2 sources) Body mass index (BMI) 27.0-27.9, adult; Translations: [Body mass index (BMI) 27.0-27.9, adult] Onset: 01-18-2024 Episodic Other nutritional; endocrine; and metabolic disorders (2 sources) Overweight; Translations: [Overweight] Onset: 09-01-2023 Episodic Other nutritional; endocrine; and metabolic disorders (2 sources) Body mass index (BMI) 28.0-28.9, adult; Translations: [Body mass index (BMI) 28.0-28.9, adult] Onset: 09-01-2023 Episodic Other nutritional; endocrine; and metabolic disorders (13 sources) Insulin resistance; Translations: [Insulin resistance] Onset: 03-07-2020 Resolved: 05-06-2020 03-07-2020 Other skin disorders (1 source) Eruption; Translations: [Rash] Episodic Residual codes; unclassified (20 sources) Disturbance in sleep behavior; Translations: [Sleep disorder, unspecified] Onset: 03-07-2020 03-07-2020 Episodic Unclassified (2 sources) Insulin resistance, unspecified; Translations: [Insulin resistance, unspecified] Onset: 07-13-2023 Unclassified (1 source) Obesity, class 1; Translations: [Obesity, class 1] Onset: 05-16-2024 NEGATED: Highlighted row has been ruled out!Unclassified (1 source) No known active problems Results Test Name Value Interpretation Reference Range Facility Nicotine, Urineon 12-20-2023 3 [place] Cotinine, Ur <50 Normal [facility] Comment on above: Performed By: #### A NICTU #### [facility] [address] [place] [id number] Game Tester: Saleem Zavala MD Anabasine, Urine <5 Normal [facility] Comment on above: Performed By: #### A NICTU #### [facility] [address] [place], [place] [id number] Game Tester: Saleem Zavala MD Cotinine, Urine <15 Normal [facility] Comment on above: Performed By: #### A NICTU #### [facility] [address] [place] [address] Game Tester: Saleem Zavala MD Nicotine, Urine <15 Normal [facility] Comment on above: Result Comment: (NOT E) INTERPRETIVE INFORMATION: Nicotine and Metabolites, Urine, Quantitative Methodology: Quantitative Liquid Chromatography-Tandem Mass Spectrometry Positive cutoff: Nicotine 15 ng/mL Cotinine 15 ng/mL [id number] 50 ng/mL Anabasine 5 ng/mL For medical purposes only; not valid for forensic use. This test is designed to evaluate recent use of nicotine-containing products. Passive and active exposure cannot be discriminated definitively, although a cutoff of 100 ng/mL cotinine is frequently used for surgery qualification purposes. For smoking cessation programs or compliance testing, the absence of expected drug(s) and/or drug metabolite(s) may indicate non-compliance, inappropriate timing of specimen collection relative to drug administration, poor drug absorption, diluted/adulterated urine, or limitations of testing. The concentration value must be greater than or equal to the cutoff to be reported as positive. Anabasine is included as a biomarker of tobacco use, versus nicotine replacement. Interpretive questions should be directed to the laboratory. This test was developed and its performance characteristics determined by [facility]. It has not been cleared or approved by the [place] Food and Drug Administration. This test was performed in a CLIA certified laboratory and is intended for clinical purposes. Performed By: [facility] [address] [place] [address] [employer] Reg[employer] Operator: Quincy Richey MD, PhD CLIA Number: [id number] Performed By: #### A NICTU #### [facility] [address] [place] [address] Game Tester: Saleem Zavala MD Vitamin B6on 07-18-2023 Vitamin B-6 10 [facility] Comment on above: ADDITIONAL INFORMATION This test was developed and its performance characteristics determined by [facility] in a manner consistent with CLIA requirements. This test has not been cleared or approved by the U.S. Food and Drug Administration. Test Performed by: [facility] [address] [place] [address] Game Tester: Sunday Ramos M.D. Ph.D.; CLIA# [id number] [facility] Lipoprotein NMRon 07-16-2023 Cholesterol [Mass/Vol] 158 mg/dL 100 - 199 mg/dL [facility] Comment on above: This test was develo ped and its performance characteristics determined by [facility]. It has not been cleared or approved by the Food and Drug Administration. Cholesterol in HDL [Mass/Vol] 56 mg/dL 39 - PINF mg/dL [facility] Comment on above: This test was develo ped and its performance characteristics determined by [facility]. It has not been cleared or approved by the Food and Drug Administration. Cholesterol in LDL [Mass/Vol] 92 mg/dL 0 - 99 mg/dL [facility] Comment on above: . Optimal < 100 Above optimal 100 - 129 Borderline 130 - 159 High 160 - 189 Very high > 189 . HDL SIZE 10.0 nm 9.2 - PINF nm [facility] Comment on above: This test was develo ped and its performance characteristics determined by [facility]. It has not been cleared or approved by the Food and Drug Administration. HDL-P TOTAL 29.7 umol/L Low 30.5 - PINF umol/L [facility] Comment on above: This test was develo ped and its performance characteristics determined by [facility]. It has not been cleared or approved by the Food and Drug Administration. Interpretation and review of laboratory results Abnormal [facility] LARGE HDL-P 8.3 umol/L 4.8 - PINF umol/L [facility] Comment on above: This test was develo ped and its performance characteristics determined by [facility]. It has not been cleared or approved by the Food and Drug Administration. LARGE VLDL-P <0.8 NINF - 2.7 nmol/L [facility] Comment on above: This test was develo ped and its performance characteristics determined by [facility]. It has not been cleared or approved by the Food and Drug Administration. LDL-P 757 nmol/L NINF - 1000 nmol/L [facility] Comment on above: This test was develo ped and its performance characteristics determined by [facility]. It has not been cleared or approved by the Food and Drug Administration. Low < 1000 Moderate 1000 - 1299 Borderline-High 1300 - 1599 High 1600 - 2000 Very High > 2000 LP-IR SCORE <25 NINF - 45 [facility] Comment on above: This test was develo ped and its performance characteristics determined by [facility]. It has not been cleared or approved by the Food and Drug Administration. INSULIN RESISTANCE / DIABETES RISK MARKERS <--Insulin Sensitive Insulin Resistant--> Percentile in Reference Population Large VLDL-P Low 25th 50th 75th High <0.9 0.9 2.7 6.9 >6.9 . Small LDL-P Low 25th 50th 75th High <117 117 527 839 >839 . Large HDL-P High 75th 50th 25th Low >7.3 7.3 4.8 3.1 <3.1 . VLDL Size Small 25th 50th 75th Large <42.4 42.4 46.6 52.5 >52.5 . LDL Size Large 75th 50th 25th Small >21.2 21.2 20.8 20.4 <20.4 . HDL Size Large 75th 50th 25th Small >9.6 9.6 9.2 8.9 <8.9 Insulin Resistance Score LP-IR SCORE Low 25th 50th 75th High <27 27 45 63 >63 . LP-IR Score is inaccurate if patient is non-fasting. . The LP-IR score is a laboratory developed index that has been associated with insulin resistance and diabetes risk and should be used as one component of a physician's clinical assessment. Test Performed by: [facility] [address] [id number] Triglyceride [Mass/Vol] 46 mg/dL 0 - 149 mg/dL [facility] Comment on above: This test was develo ped and its performance characteristics determined by [facility]. It has not been cleared or approved by the Food and Drug Administration. VLDL SIZE 45.0 nm NINF - 46.6 nm [facility] Comment on above: This test was develo ped and its performance characteristics determined by [facility]. It has not been cleared or approved by the Food and Drug Administration. [facility] No Panel Informationon 07-16 LDL SIZE 21.4 nm 20.8 - PINF nm [facility] Comment on above: This test was develo ped and its performance characteristics determined by [employer]. It has not been cleared or approved by the Food and Drug Administration. INTERPRETATIVE INFORMATION PARTICLE CONCENTRATION AND SIZE <--Lower CVD Risk Higher CVD Risk--> LDL AND HDL PARTICLES Percentile in Reference Population HDL-P (total) High 75th 50th 25th Low >34.9 34.9 30.5 26.7 <26.7 . Small LDL-P Low 25th 50th 75th High <117 117 527 839 >839 . LDL Size <-Large (Pattern A)-> <-Small (Pattern B)-> 23.0 20.6 20.5 19.0 . Small LDL-P and LDL Size are associated with CVD risk, but not after LDL-P is taken into account. This test was develo ped and its performance characteristics determined by [employer]. It has not been cleared or approved by the Food and Drug Administration. SMALL LDL-P 158 nmol/L NINF - 527 nmol/L [facility] Comment on above: This test was develo ped and its performance characteristics determined by [employer]. It has not been cleared or approved by the Food and Drug Administration. Comprehensive metabolic 2000 panelOrdered By: Roxie Lopez on 07-13-2023 Albumin [Mass/Vol] 4.6 g/dL 3.2 - 5.2 g/dL [facility] ALP [Catalytic activity/Vol] 67 U/L 40 - 140 U/L [facility] ALT [Catalytic activity/Vol] 29 U/L 0-35 U/L [facility] Anion gap [Moles/Vol] 16 mmol/L 10 - 20 mmol/L [facility] AST [Catalytic activity/Vol] 28 U/L 0-35 U/L [facility] Bilirubin [Mass/Vol] 0.6 mg/dL 0.0 - 1 .3 mg/dL [facility] Calcium [Mass/Vol] 9.3 mg/dL 8.4 - 10. 2 mg/dL [facility] Chloride [Moles/Vol] 102 mmol/L 98 - 10 8 mmol/L [facility] Creatinine [Mass/Vol] 0.57 mg/dL 0.40 - 1.10 mg/dL [facility] GFR/1.73 sq M.predicted CKD-EPI (S/P/Bld) [Vol rate/Area] 121 - PINF [facility] Comment on above: Estimated GFR was ca lculated using the 2020 CKD-EPI creatinine equation. Glucose [Mass/Vol] 64 mg/dL Low 65 - 99 mg/dL [facility] HCO3 [Moles/Vol] 26 mmol/L 21 - 32 mmol/L [facility] Interpretation and review of laboratory results Abnormal [facility] Potassium [Moles/Vol] 3.7 mmol/L 3.5 - 5.1 mmol/L [facility] Comment on above: Slightly Hemolyzed Protein [Mass/Vol] 7.1 g/dL 6.0 - 8.0 g/dL [facility] Sodium [Moles/Vol] 140 mmol/L 135 - 145 mmol/L [facility] Urea nitrogen [Mass/Vol] 12 mg/dL 8 - 25 mg/dL [facility] Urea nitrogen/Creatinine [Mass ratio] 21.1 mg/mg High 10.0 - 20.0 [facility] has implemented the eGFR calculation approach that does not have a coefficient for race that conforms to the NKF-ASN Task Force Recommendations. [facility] Ferritinon 07-13-2023 Ferritin [Mass/Vol] 151 ng/mL High 13 - 150 ng/mL [facility] Ferritin [Mass/Vol]on 2022 Interpretation and review of laboratory results Abnormal [facility] Folateon 07-13-2023 Folate [Mass/Vol] 16.4 ng/mL 3.1 - 17.5 ng/mL [facility] Comment on above: Deficient <2.2 Borderline 2.2 - 3.0 Excessive >17.5 Free T4 [Mass/Vol]on 023 Interpretation and review of laboratory results Normal [facility] Iron and Iron binding capaci ty panelon 07-13-2023 Iron [Mass/Vol] 77 ug/dL [facility] h Iron binding capacity [Mass/Vol] 236 [facility] Iron saturation [Mass fraction] 33 % 20 - 50 % [facility] No Panel Informationon 07-13 Interpretation and review of laboratory results Normal [facility] T3on 07-13-2023 T3 [Mass/Vol] 119 ng/dL 72 - 170 ng/dL [facility]th T3 [Mass/Vol]on 07-13-2023 Interpretation and review of laboratory results Normal [facility] T4, Freeon 07-13-2023 Free T4 [Mass/Vol] 1.4 ng/dL 0.7 - 1.7 ng/dL [facility] TSH DL <= 0.005 mIU/L Qnon 1 09-12-2022 Interpretation and review of laboratory results Abnormal [facility] TSH Qn 5.63 m[IU]/L [facility] Vitamin B12on 07-13-2023 Cobalamin (Vitamin B12) [Mass/Vol] 330 pg/mL 232 - 1245 pg/mL [facility] Vitamin D, Total, 25-OHon 25-hydroxyvitamin D [Mass/Vol] 22 ng/mL Low 30 - 100 ng/mL [facility] Comment on above: Vitamin D status: Deficiency: <10 ng/mL Insufficiency: 10-30 ng/mL Sufficiency: 30-100 ng/mL Toxicity: >100 ng/mL Interpretation and review of laboratory results Abnormal [facility] Assay performed usin lissette Diasorin CLIA methodology. [facility] US PELVIS AND TRANSVAGon US PELVIS AND TRANSVAG EXAM: Pelvic ultrasound HISTORY: . Excessive and frequent menstruation . COMPARISON: None. TECHNIQUE: Transabdominal and transvaginal scanning was performed FINDINGS: Scanning of the pelvis demonstrates uterus to measure 9 x 5.2 x 6.2 cm. Endometrial complex measures 8 mm. Within the endometrial cavity there is a thin hypoechoic stripe measuring 3 mm. Right ovary was not visualized. Left ovary measures 3.4 x 2.4 x 2.5 cm. Color-flow is noted. Follicles are noted. There is a 1.7 x 1.6 cm simple cyst within the left ovary. No fluid is noted within the cul-de-sac. IMPRESSION: 1. Uterus is anteverted. 2. Endometrial complex measures 8 mm. Within the endometrial cavity of the fundus of uterus there is a thin hypoechoic stripe fluid and/or blood. 3. 1.7 x 1.6 cm simple cyst within the left ovary. 4. Right ovary was not identified. Electronically authenticated by: MARIA GUADALUPE LYNN Date: 2022-01-29 07:39 Normal [facility] PAP ACOG PANEL 2: 30 to 65on 01-18-2022 . . Normal [facility] Comment on above: Result Comment: Perf ormed at: WB Performed By: #### [id number] #### [facility] [address] [address] [address] Freeman Sims Age Gdln ACOG Testing 30-65 Normal [facility] Comment on above: Performed By: #### [id number] #### [facility] [address] [address] [address] Freeman Sims DIAGNOSIS: Comment Normal [facility] Comment on above: Result Comment: NEGA TIVE FOR INTRAEPITHELIAL LESION OR MALIGNANCY. PREDOMINANCE OF COCCOBACILLI CONSISTENT WITH SHIFT IN VAGINAL AARON IS PRESENT. Performed at: WB Performed By: #### [id number] #### [facility] [address] [address] [address] Freeman Sims HPV Aptima Negative Normal Negative [facility] Comment on above: Result Comment: This nucleic acid amplification test detects fourteen high-risk HPV types (16,18,31,33,35,39,45,51,52,56,58,59,66,68) without differentiation. Performed at: =G Performed By: #### [id number] #### [facility] [address] [place] [address] Dr. Freeman Sims Methodology: Comment [facility] Comment on above: Result Comment: This liquid based ThinPrep(R) pap test was screened with the use of an image guided system. Performed at: WB Performed By: #### [id number] #### [facility] [address] [place] [address] Dr. Freeman Sims Note: Comment Normal [facility] Comment on above: Result Comment: The Pap smear is a screening test designed to aid in the detection of premalignant and malignant conditions of the uterine cervix. It is not a diagnostic procedure and should not be used as the sole means of detecting cervical cancer. Both false-positive and false-negative reports do occur. . Performed at: WB Performed By: #### [id number] #### [facility] [address] [place] [address] Dr. Freeman Sims Performed by: Comment Normal [facility] Comment on above: Result Comment: Lisa Leal, Incoming Freight Clerk (ASCP) Performed at: WB Performed By: #### [id number] #### [facility] [address] [place] [address] Dr. Freeman Sims Specimen adequacy: Comment Normal [facility] Comment on above: Result Comment: Sati sfactory for evaluation. Endocervical and/or squamous metaplastic cells (endocervical component) are present. Performed at: WB Performed By: #### [id number] #### [facility] [address] [place] [address] Dr. Freeman Sims XR CHEST AP/PA AND LATon XR CHEST AP/PA AND LAT EXAMINATION: XR CHEST AP/PA AND LAT 06/27/2021 8:01 am HISTORY: ORDERING SYSTEM PROVIDED HISTORY: Cough, TECHNOLOGIST PROVIDED HISTORY: Illness/Other Reason for exam: cough and sob x 2 months Cancer History: unknown Surgery, RadiationHistory: unknown Encounter Type: Initial Additional signs and symptoms: hx hodgkin's disease ORDERING SYSTEM PROVIDED DIAGNOSIS CODES: R05.9 Cough COMPARISON: 04/25/2021 FINDINGS: Heart and vascularity are unremarkable. Lungs are expanded and free of focal infiltrates. No acute bony abnormality is appreciated. IMPRESSION: No acute heart or lung disease identified. Workstation ID: [id number] Dictated by: MARIA GUADALUPE LYNN on [facility] Jun 27, 2021 9:57:46 AM EST Transcribed by: MARIA GUADALUPE LYNN on [facility] Jun 27, 2021 9:57:46 AM EST Finalized by: MARIA GUADALUPE LYNN on [facility] Jun 27, 2021 9:57:46 AM EST [facility] Comment on above: Order Comment: Injur y/Trauma or Illness?:Illness/Other How long have you had these symptoms (acute/chronic)?:Acute Reason for exam?:cough and sob x 2 months History of cancer?:unknown Surgeries, chemotherapy, or radiation?:unknown Type of Exam?:Initial Additional signs and symptoms?:hx hodgkin's disease XR CHEST AP/PA AND LATon XR CHEST AP/PA AND LAT EXAMINATION: XR CHEST AP/PA AND LAT HISTORY: dyspnea Injury/Trauma or Illness?:Illness/Othe r How long have you had these symptoms (acute/chronic)?:Acut e Reason for exam?:DYSPNEA, HX OF ASTHMA History of cancer?:unknown Surgeries, chemotherapy, or radiation?:unknown R06.00 Dyspnea, unspecified type COMPARISON: None. TECHNIQUE: PA and lateral radiographs of the chest were obtained. FINDINGS: The lungs are clear without focal consolidation, pleural effusion, or pneumothorax. No visible rib fractures. Cardiac silhouette is normal in size. Osseous structures within normal limits. IMPRESSION: No acute findings. Workstation ID: [id number] Dictated by: ELMA MOON on [facility] Apr 25, 2021 7:31:01 PM EDT Transcribed by: ELMA MOON on [facility] Apr 25, 2021 7:31:01 PM EDT Finalized by: ELMA MOON on [facility] Apr 25, 2021 7:31:01 PM EDT [facility] Comment on above: Order Comment: Injur y/Trauma or Illness?:Illness/Other How long have you had these symptoms (acute/chronic)?:Acute Reason for exam?:DYSPNEA, HX OF ASTHMA History of cancer?:unknown Surgeries, chemotherapy, or radiation?:unknown Type of Exam?:Initial Additional signs and symptoms?:N XR KNEES BILATERAL WB OA 3 V IEWSon 09-11-2021 XR KNEES BILATERAL WB OA 3 VIEWS EXAMINATION: XR KNEES BILATERAL WB OA 3 VIEWS HISTORY: Knee pain. Dx: Chronic pain of both knees M25.561, M25.562, G89.29 (ICD-10-CM). COMPARISON: Right tibia/fibula, 03/19/2021. TECHNIQUE: AP and lateral views of both knees. FINDINGS: No fracture or dislocation is apparent. No advanced degenerative change or joint space effusion is seen. There is mild right medial and patellofemoral joint space narrowing noted. IMPRESSION: No acute bilateral knee abnormality. Mild right knee joint space narrowing is present without advanced bilateral degenerative change. RWA/trw Workstation ID: [id number] Dictated by: ALY PIERCE on TueApr 27, 2021 3:27:52 PM EDT Transcribed by: BELÉN HARRIS on TueApr 27, 2021 3:32:15 PM EDT Finalized by: ALY PIERCE on TueApr 27, 2021 3:39:16 PM EDT [facility] Comment on above: Order Comment: Injur y/Trauma or Illness?:Illness/Other How long have you had these symptoms (acute/chronic)?:Unknown Reason for exam?:BILAT KNEE PAIN, RT> LT History of cancer?:unknown Surgeries, chemotherapy, or radiation?:unknown Type of Exam?:Initial Additional signs and symptoms?:N XR LUMBAR SPINE 2-3 VIEWS (S TANDARD)on 04-25-2021 XR LUMBAR SPINE 2-3 VIEWS (STANDARD) EXAMINATION: LUMBAR SPINE 3 VIEWS COMPARISON: None. HISTORY: ORDERING SYSTEM PROVIDED HISTORY: low back, TECHNOLOGIST PROVIDED HISTORY: Illness/Other Reason for exam: LOWER BACK PAIN Cancer History: unknown Surgery, RadiationHistory: unknown Encounter Type: Initial Additional signs and symptoms: N ORDERING SYSTEM PROVIDED DIAGNOSIS CODES: M54.5 Chronic midline low back pain without sciatica G89.29 Chronic midline low back pain without sciatica FINDINGS: The vertebral body heights are well maintained and aligned. There is no evidence of fracture, spondylolysis, or spondylolisthesis. There is mild sclerosis at the lower lumbar apophyseal joints. Incidental note is made of right upper quadrant surgical clips. The surrounding soft tissues demonstrate no additional abnormalities of acute significance. IMPRESSION: 1. Mild sclerosis at the lower lumbar apophyseal joints. 2. Otherwise unremarkable study. DPJimena/zach Workstation ID: [id number] Dictated by: MARIA GUADALUPE TONG on TueApr 27, 2021 4:41:51 PM EDT Transcribed by: DANIAL POP on TueApr 27, 2021 5:09:39 PM EDT Finalized by: MARIA GUADALUPE TONG on TueApr 27, 2021 5:55:24 PM EDT [facility] Comment on above: Order Comment: Injur y/Trauma or Illness?:Illness/Other How long have you had these symptoms (acute/chronic)?:Unknown Reason for exam?:LOWER BACK PAIN History of cancer?:unknown Surgeries, chemotherapy, or radiation?:unknown Type of Exam?:Initial Additional signs and symptoms?:N US ABDOMEN LIMITED STUDYon 0 04-23-2021 US ABDOMEN LIMITED STUDY EXAMINATION: US ABDOMEN LIMITED STUDY HISTORY: ORDERING SYSTEM PROVIDED HISTORY: elevated lfts, TECHNOLOGIST PROVIDED HISTORY: Illness/Other Reason for exam: elevated lfts Cancer History: unknown Surgery, RadiationHistory: unknown Encounter Type: Initial Additional signs and symptoms: none ORDERING SYSTEM PROVIDED DIAGNOSIS CODES: R79.89 Elevated LFTs COMPARISON: Complete abdominal ultrasound 09/01/2018 TECHNIQUE: Ultrasound was obtained of the right upper abdomen. FINDINGS: The pancreatic head and body demonstrate normal homogeneous echogenicity. The pancreatic tail was not well seen secondary to shadowing from overlying bowel gas. Slightly increased echogenicity of the liver, which may represent mild hepatic steatosis. No intrahepatic focal lesions or biliary dilation. Status post cholecystectomy. The common bile duct is normal in caliber, measuring 0.4 cm at the level of the angely hepatis. Crm Marketing Manager reports a negative sonographic Santos's sign. The right kidney measures 12.4 cm in length, and demonstrates normal cortical thickness and echogenicity. No hydronephrosis. IMPRESSION: 1. Slightly increased echogenicity of the liver, which may represent mild hepatic steatosis. 2. Status post cholecystectomy. No biliary dilation. Workstation ID: [id number] Dictated by: DIONISIO MACK on TueApr 23, 2021 7:31:03 PM EDT Transcribed by: DIONISIO MACK on TueApr 23, 2021 7:31:03 PM EDT Finalized by: DIONISIO MACK on TueApr 23, 2021 7:31:03 PM EDT [facility] Comment on above: Order Comment: Injur y/Trauma or Illness?:Illness/Other How long have you had these symptoms (acute/chronic)?:Acute Reason for exam?:elevated lfts History of cancer?:unknown Surgeries, chemotherapy, or radiation?:unknown Type of Exam?:Initial Additional signs and symptoms?:none XR TIBIA FIBULA RIGHT 2 VIEW Son 03-19-2021 XR TIBIA FIBULA RIGHT 2 VIEWS EXAMINATION: XR TIBIA FIBULA RIGHT 2 VIEWS 03/19/2021 12:47 am HISTORY: ORDERING SYSTEM PROVIDED HISTORY: Right leg pain/tenderness, TECHNOLOGIST PROVIDED HISTORY: Illness/Other Reason for exam: pain/swelling/warm Cancer History: no Surgery, RadiationHistory: no Encounter Type: Initial Additional signs and symptoms: states was just walking AND felt a pop ORDERING SYSTEM PROVIDED DIAGNOSIS CODES: COMPARISON: None available FINDINGS: No acute fracture line, dislocation, or focal osseous erosion. No radiopaque foreign body soft tissue swelling. IMPRESSION: No radiographic evidence for acute osseous injury. Diffuse soft tissue swelling of the leg. Workstation ID: [id number] Dictated by: LOPEZ LY on TueMar 19, 2021 1:08:55 AM EDT Transcribed by: LOPEZ LY on TueMar 19, 2021 1:08:55 AM EDT Finalized by: LOPEZ LY on TueMar 19, 2021 1:08:55 AM EDT [facility] Comment on above: Order Comment: Injur y/Trauma or Illness?:Illness/Other How long have you had these symptoms (acute/chronic)?:Acute Reason for exam?:pain/swelling/warm History of cancer?:no Surgeries, chemotherapy, or radiation?:no Type of Exam?:Initial Additional signs and symptoms?:states was just walking AND felt a pop Comprehensive Metabolic Pane patrick 11-12-2020 Albumin [Mass/Vol] 3.4 g/dL 3.2 - 5.2 g/dL [facility] ALP [Catalytic activity/Vol] 107 U/L 40 - 140 U/L [facility] ALT [Catalytic activity/Vol] 117 U/L High 14 - 65 U/L [facility] Anion gap [Moles/Vol] 10 mmol/L 10 - 20 mmol/L [facility] AST [Catalytic activity/Vol] 91 U/L High 0 - 45 U/L [facility] Bilirubin [Mass/Vol] 0.3 mg/dL 0.0 - 1 .3 mg/dL [facility] Calcium [Mass/Vol] 8.6 mg/dL 8.4 - 10. 2 mg/dL [facility] Chloride [Moles/Vol] 106 mmol/L 98 - 10 8 mmol/L [facility] Creatinine [Mass/Vol] 0.75 mg/dL 0.40 - 1.10 [facility] GFR/1.73 sq M predicted among non-blacks MDRD (S/P/Bld) [Vol rate/Area] The eGFR should be used for monitoring renal function only and not for medication dosing. [facility] GFR/1.73 sq M.predicted CKD-EPI (S/P/Bld) [Vol rate/Area] 105 >=60 mL/min/1.73 m2 [facility] Glucose [Mass/Vol] 87 mg/dL 65 - 99 mg/dL [facility] HCO3 [Moles/Vol] 25 mmol/L 21 - 32 mmol/L [facility] Potassium [Moles/Vol] 4.1 mmol/L 3.5 - 5.1 mmol/L [facility] Protein [Mass/Vol] 7.2 g/dL 6.0 - 8.0 g/dL [facility] Sodium [Moles/Vol] 137 mmol/L 135 - 145 mmol/L [facility] Urea nitrogen [Mass/Vol] 16 mg/dL 8 - 25 mg/dL [facility] Urea nitrogen/Creatinine [Mass ratio] 21.3 mg/mg [facility] Lipid Panelon 11-12-2020 Cholesterol [Mass/Vol] 161 mg/dL 100 - 199 mg/dL [facility] Comment on above: National Cholesterol Education Program Guidelines: Cholesterol Desirable: <200 mg/dL Borderline High: 200-239 mg/dL High: greater than or equal to 240 mg/dL Cholesterol in HDL [Mass/Vol] 67 mg/dL 40 - 59 [facility] Comment on above: National Cholesterol Education Program Guidelines: HDL Cholesterol Low: <40 mg/dL Near Optimal: 40-59 mg/dL High: greater than or equal to 60 mg/dL Cholesterol in LDL [Mass/Vol] 86 mg/dL 10 - 130 mg/dL [facility] Comment on above: National Cholesterol Education Program Guidelines: LDL Cholesterol Optimal: <100 mg/dL Near Optimal/above Optimal: 100-129 mg/dL Borderline High: 130-159 mg/dL High: 160-189 mg/dL Very High: greater than or equal to 190 mg/dL Cholesterol non HDL [Mass/Vol] 94 mg/dL [facility] Comment on above: National Cholesterol Education Program Guidelines: NON HDL Cholesterol Desirable: <130 mg/dL Borderline High: 130-159 mg/dL High: 160-189 mg/dL Very High: > or = 190 mg/dL Cholesterol.total/Ch olesterol in HDL [Mass ratio] 2.4 {ratio} ratio [facility] Comment on above: Female Cholesterol/H DL Ratio: Average risk: 4.4 1/2 average risk: 3.3 2 x average risk: 7.1 Triglyceride [Mass/Vol] 40 mg/dL 30 - 150 mg/dL [facility] Comment on above: National Cholesterol Education Program Guidelines: Triglyceride Normal: <150 mg/dL Borderline High: 150-199 mg/dL High: 200-499 mg/dL Very High: greater than or equal to 500 mg/dL Other 11-12-2020 Interpretation and review of laboratory results Abnormal [facility] T4, Freeon 11-12-2020 Free T4 [Mass/Vol] 0.7 ng/dL 0.7 - 1.7 ng/dL [facility] Interpretation and review of laboratory results Normal [facility] TSHon 11-12-2020 TSH Qn 9.61 m[IU]/L [facility] POC Urinalysis Dipstick, Aut oon 08-04-2020 Bilirubin Ql (U) Large Abnormal Negative [facility] Glucose Ql (U) 100 Abnormal Normal, Negative mg/dL [facility] Hemoglobin Ql (U) Large Abnormal Negative [facility] Interpretation and review of laboratory results Abnormal [facility] Ketones Ql (U) 40 Abnormal Negative mg/dL [facility] Leukocyte esterase Test strip Ql (U) Large Abnormal Negative [facility] Nitrite Ql (U) Positive Abnormal Negative [facility] pH (U) 6.0 [pH] [facility] Protein Ql (U) 300 Abnormal Negative mg/dL [facility] Specific gravity (U) [Rel density] 1.015 [facility] Urobilinogen Qn (U) 4.0 mg/dL Abnormal <2.0, 0. 2, Normal, Negative, 1.0, 2.0, <1.0 [facility] Comprehensive Metabolic Pane patrick 02-08-2020 Albumin [Mass/Vol] 3.3 g/dL 3.2 - 5.2 g/dL [facility] ALP [Catalytic activity/Vol] 91 U/L 40 - 140 U/L [facility] ALT [Catalytic activity/Vol] 26 U/L 14 - 65 U/L [facility] Anion gap [Moles/Vol] 10 mmol/L 10 - 20 mmol/L [facility] AST [Catalytic activity/Vol] 14 U/L 0 - 45 U/L [facility] Bilirubin [Mass/Vol] 0.4 mg/dL 0 - 1.3 mg/dL [facility] Calcium [Mass/Vol] 8.4 mg/dL 8.4 - 10. 2 mg/dL [facility] Chloride [Moles/Vol] 108 mmol/L 98 - 10 8 mmol/L [facility] Creatinine [Mass/Vol] 0.68 mg/dL 0.40 - 1.10 [facility] GFR/1.73 sq M predicted among non-blacks MDRD (S/P/Bld) [Vol rate/Area] The eGFR should be used for monitoring renal function only and not for medication dosing. [facility] GFR/1.73 sq M.predicted CKD-EPI (S/P/Bld) [Vol rate/Area] 116 >=60 mL/min/1.73 m2 [facility] Glucose [Mass/Vol] 88 mg/dL 65 - 99 mg/dL [facility] HCO3 [Moles/Vol] 25 mmol/L 21 - 32 mmol/L [facility] Interpretation and review of laboratory results Abnormal [facility] Potassium [Moles/Vol] 3.7 mmol/L 3.5 - 5.1 mmol/L [facility] Protein [Mass/Vol] 6.8 g/dL 6 - 8 g/dL [facility] Sodium [Moles/Vol] 139 mmol/L 135 - 145 mmol/L [facility] Urea nitrogen [Mass/Vol] 14 mg/dL 8 - 25 mg/dL [facility] Urea nitrogen/Creatinine [Mass ratio] 20.6 mg/mg [facility] Insulin, Totalon 02-08-2020 Insulin Qn 16.7 u[IU]/mL [facility] Interpretation and review of laboratory results Normal [facility] TSH with Reflex Free T4on Interpretation and review of laboratory results Normal [facility] TSH Qn 2.60 m[IU]/L [facility] Otheron 08-31-2019 No mammographic or sonographic evidence of malignancy. BIRADS: BIRADS - CATEGORY 2 Benign, no evidence of malignancy. Normal interval follow-up is recommended in 12 months. OVERALL ASSESSMENT - BENIGN A letter of notification will be sent to the patient regarding the results. [facility], along with the National [employer] Cancer Network, the [employer], and [facility], recommend annual screening mammograms for women age 40 and older. Workstation ID: [id number] [facility] EXAMINATION: MM DIAGNOSTIC STEVE BILATERAL; US BREAST RIGHT LIMITED INDICATION: ORDERING SYSTEM PROVIDED HISTORY: right sided lyphadenopathy, TECHNOLOGIST PROVIDED HISTORY: ORDERING SYSTEM PROVIDED DIAGNOSIS CODES: R59.1 Lymphadenopathy COMPARISON: 2017 TECHNIQUE: Standard mammographic views with right exaggerated CC and true lateral view, 2D and 3D. Computer-aided detection was utilized in the interpretation of this exam. Targeted right breast breast ultrasound was performed. FINDINGS: MAMMOGRAPHY: The breast tissue density is scattered fibroglandular. There are no suspicious findings in the breasts bilaterally. There are benign-appearing calcifications bilaterally. ULTRASOUND: Ultrasound of the palpable area of concern demonstrates normal fibroglandular tissue. No suspicious mass or architectural distortion. No axillary lymphadenopathy. [facility], Rad In [employer] [facility] - 08/31/2019 2:46 PM EST EXAMINATION: MM DIAGNOSTIC STEVE BILATERAL; US BREAST RIGHT LIMITED INDICATION: ORDERING SYSTEM PROVIDED HISTORY: right sided lyphadenopathy, TECHNOLOGIST PROVIDED HISTORY: ORDERING SYSTEM PROVIDED DIAGNOSIS CODES: R59.1 Lymphadenopathy COMPARISON: 2018 TECHNIQUE: Standard mammographic views with right exaggerated CC and true lateral view, 2D and 3D. Computer-aided detection was utilized in the interpretation of this exam. Targeted right breast breast ultrasound was performed. FINDINGS: MAMMOGRAPHY: The breast tissue density is scattered fibroglandular. There are no suspicious findings in the breasts bilaterally. There are benign-appearing calcifications bilaterally. ULTRASOUND: Ultrasound of the palpable area of concern demonstrates normal fibroglandular tissue. No suspicious mass or architectural distortion. No axillary lymphadenopathy. IMPRESSION: No mammographic or sonographic evidence of malignancy. BIRADS: BIRADS - CATEGORY 2 Benign, no evidence of malignancy. Normal interval follow-up is recommended in 12 months. OVERALL ASSESSMENT - BENIGN A letter of notification will be sent to the patient regarding the results. [facility], along with the [employer], the [employer], and [facility], recommend annual screening mammograms for women age 40 and older. Workstation ID: [id number] [facility] MM COMPARISON IMPORTon 08-28 This order has been auto-finalized and does not contain a result. [facility] US COMPARISON IMPORTon 08-28 This order has been auto-finalized and does not contain a result. [facility] T4, Freeon 08-24-2019 Free T4 [Mass/Vol] 0.8 ng/dL 0.7 - 1.7 ng/dL [facility] Interpretation and review of laboratory results Normal [facility] TSHon 08-24-2019 Interpretation and review of laboratory results Abnormal [facility] TSH Qn 17.40 m[IU]/L [facility] XR WRIST LEFT 3+ VIEWS (CARLOS MOTAD)on 01-17-2019 XR WRIST LEFT 3+ VIEWS (STANDARD) EXAMINATION: XR WRIST LEFT 3+ VIEWS (STANDARD) HISTORY: pain and swelling left wrist. no know injury. getting worse COMPARISON: Left hand 01/07/2018 FINDINGS: Frontal, oblique, lateral views of the left wrist. There is no acute fracture or dislocation. The joint spaces appear preserved. The soft tissues are unremarkable. IMPRESSION: Unremarkable left wrist radiographs. [employer] Workstation ID: [id number] Dictated by: TIM FAJARDO on TueJan 17, 2019 3:20:42 PM EDT Transcribed by: MONICA BENNETT on TueJan 17, 2019 4:04:25 PM EDT Finalized by: TIM FAJARDO on TueJan 17, 2019 4:05:37 PM EDT Normal [facility] Comment on above: Order Comment: Reaso n for exam?:pain Injury/Trauma or Illness?:Injury/Trauma How long have you had these symptoms (acute/chronic)?:Acute History of cancer?:no Surgeries, chemotherapy, or radiation?:no Type of Exam?:Initial Mechanism of injury?:unknown XR Wrist Left 3+ Views (Carlos wasserman)on 01-17-2019 Unremarkable left wrist radiographs. [employer] Workstation ID: [id number] [facility] EXAMINATION: XR WRIS T LEFT 3+ VIEWS (STANDARD) HISTORY: pain and swelling left wrist. no know injury. getting worse COMPARISON: Left hand 01/07/2018 FINDINGS: Frontal, oblique, lateral views of the left wrist. There is no acute fracture or dislocation. The joint spaces appear preserved. The soft tissues are unremarkable. [facility] Interface, Rad In [employer] Speech[employer] - 01/17/2019 4:08 PM EDT EXAMINATION: XR WRIST LEFT 3+ VIEWS (STANDARD) HISTORY: pain and swelling left wrist. no know injury. getting worse COMPARISON: Left hand 01/07/2018 FINDINGS: Frontal, oblique, lateral views of the left wrist. There is no acute fracture or dislocation. The joint spaces appear preserved. The soft tissues are unremarkable. IMPRESSION: Unremarkable left wrist radiographs. [employer] Workstation ID: [id number] [facility] Outside Recordson 09-13-2018 Outside Records [id number] .00OTGTIFF Normal US ABDOMEN COMPLETEon 2018 US ABDOMEN COMPLETE Begin Addendum # 1 CORRECTION: First line of Impression should read: Asymmetrically smaller left kidney. Original Report ULTRASOUND ABDOMEN COMPLETE HISTORY: Abdominal pain. Trauma. . COMPARISON: None. FINDINGS: The liver appears unremarkable. There is no evidence for mass or intrahepatic biliary ductal dilatation. The gallbladder appears unremarkable with no evidence for gallbladder wall thickening or pericholecystic fluid. The common bile duct is not visualized. The visualized portions of the pancreas appear unremarkable. The right kidney measures 10.2 cm and the left kidney measures 8.7 cm. The kidneys are normal appearing with no evidence of hydronephrosis or masses. The spleen measures 10.8 cm. The abdominal aorta and IVC are normal appearing. There is no free fluid. IMPRESSION: Asymmetrically smaller right kidney. No gallstones. No free fluid. Normal [facility] CBC(NO DIFF)on 09-01-2018 Erythrocyte distribution width Ratio (RBC) 13.8 % Normal 11.5-14.5 [facility] Comment on above: Performed By: #### H EMOG #### Testing performed at [address] [address] #### CMPF #### Testing performed at [address] [address] Testing performed at [address] [address] #### LIPA2 #### Testing performed at [address] [address] Hematocrit Volume Fraction (Bld) 40.7 % Normal 36.0-48.0 [facility] Comment on above: Performed By: #### H EMOG #### Testing performed at [address] [address] #### CMPF #### Testing performed at [address] [place] [address] Testing performed at [address] [place] [address] #### LIPA2 #### Testing performed at [address] [place] [address] Hemoglobin mass conc (Bld) 13.6 g/dL Normal 12.0-16.0 [facility] Comment on above: Performed By: #### H EMOG #### Testing performed at [address] [place] [address] #### CMPF #### Testing performed at [address] [place] [address] Testing performed at [address] [address] #### LIPA2 #### Testing performed at [address] [address] MCH Entitic mass (RBC) 31.2 pg Normal 26.0-35.0 [facility] Comment on above: Performed By: #### H EMOG #### Testing performed at [address] [place] [address] #### CMPF #### Testing performed at [address] [place] [address] Testing performed at [address] [address] #### LIPA2 #### Testing performed at [address] [place] [address] MCHC mass conc (RBC) 33.5 g/dL Normal 27.0-37.0 [facility] Comment on above: Performed By: #### H EMOG #### Testing performed at [address] [place] [address] #### CMPF #### Testing performed at [address] [place] [address] Testing performed at [address] [address] #### LIPA2 #### Testing performed at [address] [address] MCV Entitic volume (RBC) 93.2 fL Normal 80.0-100.0 [facility] Comment on above: Performed By: #### H EMOG #### Testing performed at [address] [place] [address] #### CMPF #### Testing performed at [address] [place] [address] Testing performed at [address] [place] [address] #### LIPA2 #### Testing performed at [address] [place] [address] Platelet mean volume Entitic volume (Bld) 8.9 fL Normal 7.4-11.0 [facility] Comment on above: Performed By: #### H EMOG #### Testing performed at [address] [place] [address] #### CMPF #### Testing performed at [address] [place] [address] Testing performed at [address] [place] [address] #### LIPA2 #### Testing performed at [address] [place] [address] Platelets #/vol (Bld) 174 /cmm Normal 130.0-400.0 [facility] Comment on above: Performed By: #### H EMOG #### Testing performed at [address] [place] [address] #### CMPF #### Testing performed at [address] [place] [address] Testing performed at [address] [place] [address] #### LIPA2 #### Testing performed at [address] [place] [address] RBC #/vol (Bld) 4.37 /cmm Normal 4.0-5.4 [facility] Comment on above: Performed By: #### H EMOG #### Testing performed at [address] [place] [address] #### CMPF #### Testing performed at [address] [place] [address] Testing performed at [address] [place] [address] #### LIPA2 #### Testing performed at [address] [place] [address] WBC #/vol (Bld) 8.8 /cmm Normal 3.6-11.0 [facility] Comment on above: Performed By: #### H EMOG #### Testing performed at [address] [place] [address] #### CMPF #### Testing performed at [address] [address] Testing performed at [address] [place] [address] #### LIPA2 #### Testing performed at [address] [address] CMP FASTINGon 09-01-2018 A:G RATIO 1.2 RATIO Low 1.3-2.2 [facility] Comment on above: Performed By: #### H EMOG #### Testing performed at [address] [place] [address] #### CMPF #### Testing performed at [address] [place] [address] Testing performed at [address] [place] [address] #### LIPA2 #### Testing performed at [address] [place] [address] Albumin mass conc 4.0 G/dl Normal 3.5-5.0 [facility] Comment on above: Performed By: #### H EMOG #### Testing performed at [address] [place] [address] #### CMPF #### Testing performed at [address] [place] [address] Testing performed at [address] [place] [address] #### LIPA2 #### Testing performed at [address] [address] ALP enzyme act/vol 74 U/L Normal 38-126 [facility] Comment on above: Performed By: #### H EMOG #### Testing performed at [address] [place] [address] #### CMPF #### Testing performed at [address] [place] [address] Testing performed at [address] [place] [address] #### LIPA2 #### Testing performed at [address] [place] [address] ALT enzyme act/vol 16 U/L Normal 14-54 [facility] Comment on above: Performed By: #### H EMOG #### Testing performed at [address] [place] [address] #### CMPF #### Testing performed at [address] [place] [address] Testing performed at [address] [place] [address] #### LIPA2 #### Testing performed at [address] [place] [address] AST enzyme act/vol 20 U/L Normal 15-41 [facility] Comment on above: Performed By: #### H EMOG #### Testing performed at [address] [place] [address] #### CMPF #### Testing performed at [address] [place] [address] Testing performed at [address] [place] [address] #### LIPA2 #### Testing performed at [address] [place] [address] Bilirubin mass conc 0.5 mg/dL Normal 0.2-1.2 [facility] Comment on above: Performed By: #### H EMOG #### Testing performed at [address] [place] [address] #### CMPF #### Testing performed at [address] [place] [address] Testing performed at [address] [place] [address] #### LIPA2 #### Testing performed at [address] [place] [address] Creatinine mass conc 0.5 mg/dL Low 0.52-1.04 [facility] Comment on above: Performed By: #### H EMOG #### Testing performed at [address] [place] [address] #### CMPF #### Testing performed at [address] [place] [address] Testing performed at [address] [address] #### LIPA2 #### Testing performed at [address] [address] EST. GFR, >60 Normal [facility] Comment on above: Performed By: #### H EMOG #### Testing performed at [address] [address] #### CMPF #### Testing performed at [address] [place] [address] Testing performed at [address] [address] #### LIPA2 #### Testing performed at [address] [address] EST. GFR,Non >60 Normal [facility] Comment on above: Performed By: #### H EMOG #### Testing performed at [address] [address] #### CMPF #### Testing performed at [address] [place] [address] Testing performed at [address] [address] #### LIPA2 #### Testing performed at [address] [address] GFR/1.73 sq M predicted among non-blacks MDRD vol rate/area (S/P/Bld) Average GFR for 30-39 years old = 109. Normal [facility] Comment on above: Result Comment: Manager Travel barrett Kidney disease, GFR = <60. Kidney failure, GFR = <15. The GFR estimate is not adjusted for extreme body surface area or acute process, nor has it been validated for women or ethnic groups other than and . Testing performed at [place] [address] Performed By: #### H EMOG #### Testing performed at [address] [address] #### CMPF #### Testing performed at [address] [address] Testing performed at [facility] [address] [place] [address] #### LIPA2 #### Testing performed at [facility] [address] [place] [address] Protein mass conc 7.4 g/dL Normal 6.3-8.2 [facility] Comment on above: Performed By: #### H EMOG #### Testing performed at [address] [place] [address] #### CMPF #### Testing performed at [address] [place] [address] Testing performed at [address] [place] [address] #### LIPA2 #### Testing performed at [address] [place] [address] Urea nitrogen mass conc 11 mg/dL Normal 7-20 [facility] Comment on above: Performed By: #### H EMOG #### Testing performed at [address] [place] [address] #### CMPF #### Testing performed at [address] [place] [address] Testing performed at [address] [place] [address] #### LIPA2 #### Testing performed at [address] [place] [address] Calcium mass conc 9.5 mg/dL Normal 8.4-10.2 [facility] Comment on above: Performed By: #### H EMOG #### Testing performed at [address] [place] [address] #### CMPF #### Testing performed at [address] [place] [address] Testing performed at [address] [place] [address] #### LIPA2 #### Testing performed at [address] [place] [address] Chloride molar conc 99 mmol/L Normal 98-107 [facility] Comment on above: Performed By: #### H EMOG #### Testing performed at [address] [place] [address] #### CMPF #### Testing performed at [address] [place] [address] Testing performed at [address] [place] [address] #### LIPA2 #### Testing performed at [address] [place] [address] CO2 molar conc 23 mmol/L Normal 22-30 [facility] Comment on above: Performed By: #### H EMOG #### Testing performed at [address] [place] [address] #### CMPF #### Testing performed at [address] [place] [address] Testing performed at [address] [place] [address] #### LIPA2 #### Testing performed at [address] [place] [address] Glucose mass conc 81 mg/dL Normal 70-100 [facility] Comment on above: Result Comment: NORMAL <100 mg/dL PREDIABETES 101-126 mg/dL DIABETES 126 mg/dL or higher Performed By: #### H EMOG #### Testing performed at [address] [place] [address] #### CMPF #### Testing performed at [address] [place] [address] Testing performed at [address] [place] [address] #### LIPA2 #### Testing performed at [address] [place] [address] Potassium molar conc 3.4 mmol/L Low 3.5-5.1 [facility] Comment on above: Performed By: #### H EMOG #### Testing performed at [address] [place] [address] #### CMPF #### Testing performed at [address] [place] [address] Testing performed at [address] [place] [address] #### LIPA2 #### Testing performed at [address] [place] [address] Sodium molar conc 136 mmol/L Normal 136-145 [facility] Comment on above: Performed By: #### H EMOG #### Testing performed at [address] [place] [address] #### CMPF #### Testing performed at [address] [place] [address] Testing performed at [address] [address] #### LIPA2 #### Testing performed at [address] [address] LIPASE,SERUMon 09-01-2018 LIPASE,SERUM 20 U/L Low 23-300 [facility] Comment on above: Result Comment: Test ing performed at [place] [address] Performed By: #### H EMOG #### Testing performed at [address] [address] #### CMPF #### Testing performed at [address] [place] [address] Testing performed at [address] [address] #### LIPA2 #### Testing performed at [address] [place] [address] URINE MACROSCOPICon 09-01-19 19 Bilirubin Ql (U) Negative Normal NEGATIVE [facility] Comment on above: Performed By: #### U MAC #### Testing performed at [address] [place] [address] Clarity Nom (U) SLIGHTLY CLOUDY Abnormal CLEAR [facility] Comment on above: Performed By: #### U MAC #### Testing performed at [address] [place] [address] Color Nom (U) YELLOW Normal YELLOW [facility] Comment on above: Performed By: #### U MAC #### Testing performed at [address] [place] [address] Glucose Ql (U) Negative Normal NEGATIVE [facility] Comment on above: Performed By: #### U MAC #### Testing performed at [address] [place] [address] pH (U) 6.0 [pH] Normal 5.0-7.0 [facility] Comment on above: Performed By: #### U MAC #### Testing performed at [address] [address] Protein mass conc (U) Negative Normal NEGATIVE [facility] Comment on above: Performed By: #### U MAC #### Testing performed at [address] [address] URINE HEMOGLOBIN Negative Normal NEGATIVE [facility] Comment on above: Performed By: #### U MAC #### Testing performed at [address] [address] URINE KETONE TRACE Abnormal NEGATIVE [facility] Comment on above: Performed By: #### U MAC #### Testing performed at [address] [address] URINE LEUKOTEST Negative Normal NEGATIVE [facility] Comment on above: Performed By: #### U MAC #### Testing performed at [address] [address] URINE NITRATES Negative Normal NEGATIVE [facility] Comment on above: Performed By: #### U MAC #### Testing performed at [address] [address] URINE SPEC GRAVITY >1.030 High 1.010-1.025 [facility] Comment on above: Performed By: #### U MAC #### Testing performed at [address] [address] Urobilinogen Qn (U) 0.2 mg/dl Normal 0.2-1.0 [facility] Comment on above: Performed By: #### U MAC #### Testing performed at [address] [address] US OB DATING ABDOMINAL < 14W [facility] 09-01-2018 US OB DATING ABDOMINAL < 14WEEKS ULTRASOUND OBSTETRICAL ADDITIONAL CLINICAL INFORMATION: Trauma, fall, . COMPARISON: None. FINDINGS: Uterus measures 13.5 x 9.2 x 9.2 cm. Single living intrauterine gestation is present with crown-rump length measurement of 4.98 cm yielding an estimated gestational age of 11 weeks and 5 days. Gestational sac diameter measures 5.28 cm yielding an estimated gestational age of 11 weeks and 1 day. Yolk sac is visualized. cardiac rate of 148 bpm. No free fluid is visualized within the pelvis. Neither the right nor the left ovary are identified. IMPRESSION: 1. Single living intrauterine gestation with an estimated gestational age of 11 weeks and 3 days, TERRI of 03/20/2019. 2. Neither the right nor the left ovary are identified. No adnexal masses are visualized. [facility] Coding Summaryon 01-11-2018 Coding Summary CODING DATE: 01/11/2018 [facility] STATUS: Home PAYOR: [employer] APC DESCRIPTION 5521 Level 1 Imaging without Contrast ADMIT DX: REASON FOR VISIT DX: M79.642 Pain in left hand FINAL DX: PRINCIPAL: S63.8X2A Sprain of other part of left wrist and hand, initial encounter SECONDARY: PYMT PROC APC STAT DESCRIPTION DOCTOR NAME DATE NOTE: The code number assigned matches the documented diagnosis and / or procedure in the patient's chart. However, the narrative phrase printed from the coding software may appear abbreviated, or result in slightly different terminology. Coded By: Kaela Fair Date Saved: 01/11/2018 09:25 am [facility] Consent Formson 01-10-2018 Consent Forms [id number]. 00OTGTIFF [facility] ED Clinical Summaryon 2017 ED Clinical Summary ? Urgent Care [address] [place], [place] [id number] Clinical Summary PERSON INFORMATION Name: AURORA MENDEZ Age: 32 Years Sex: FEMALE : [birth year] MRN: Acct#: Visit Reason: UC - Hand Injury; LEFT HAND PAIN/INJURY Arrival: 01/07/18 16:55:00 Discharge: 01/07/18 17:25:00 LOS: 000 00:30 Check In: 01/07/18 16:55:00 Checkout: 01/07/18 17:25:00 Address: [address] [place] [address] PCP: NEO MONTALVO PROVIDER INFORMATION Provider Role Assigned Unassigned Lisa Shelton ED PA 01/07/18 16:57:58 Alisa Norwood RN ED Nurse 01/07/18 17:05:22 VITALS INFORMATION Vital Sign Triage Latest Temperature Tympanic Temperature Temporal Artery Pulse Rate 108 bpm 108 bpm O2 Sat 98 % 98 % Respiratory Rate 16 br/min 16 br/min Blood Pressure 110 mmHg/72 mmHg 110 mmHg/72 mmHg MEDICAL INFORMATION Medications Given: Allergy Information: No Known Medication Allergies PHYSICIAN DOCUMENTATION Patient: AURORA MNEDEZ Age: 32 years Sex: FEMALE : 89 Associated Diagnoses: Hand sprain Author: Lisa Shelton History of Present Illness 32-year-old female presents chief complaint of left hand pain. She was moving a mattress several days ago and feels pain to the dorsal aspect of the left hand has pain with range of motion. Mild soft tissue swelling observed. Patient has no other injury trauma other than moving the object. She did not crush the hand or other injury. She is wondering acute distress she is right-handed and the pain is in the left hand. Review of Systems Constitutional symptoms: Negative except as documented in HPI. Musculoskeletal symptoms: left hand pain . Health Status Allergies: Allergic Reactions (Selected) No Known Medication Allergies. Medications: (Selected) Documented Medications Documented Adipex-P: 18.75 mg, PO, Daily, 0 Refill(s) Synthroid 200 mcg (0.2 mg) oral tablet: 200 mcg, 1 tab(s), PO, Daily, 0 Refill(s) hydrochlorothiazide-t riamterene: PO, Daily, 0 Refill(s) levothyroxine 175 mcg (0.175 mg) oral tablet: 175 mcg, 1 tab(s), PO, Daily, 0 Refill(s). Past Medical/ Family/ Social History Medical history: No active or resolved past medical history items have been selected or recorded.. Surgical history: No active procedure history items have been selected or recorded.. Family history: No family history items have been selected or recorded.. Social history: Social & Psychosocial Habits No Data Available . Problem list: Active Problems (8) Bilateral edema of lower extremity Chemo-Started October, Exercise-induced Asthma Gall Bladder Problems during Hodgkin disease Plantar fasciitis of left foot [M]Hodgkin's disease [M]Hodgkin's disease . Physical Examination Vital Signs Per nurse's notes. General: Alert, no acute distress. Skin: Warm, dry. Head: Normocephalic, atraumatic. Eye: Pupils are equal, round and reactive to light, extraocular movements are intact. Ears, nose, mouth and throat: Tympanic membranes clear, oral mucosa moist. Cardiovascular Respiratory Back: Nontender, Normal range of motion. Musculoskeletal: Normal ROM, normal strength, Hand: Left, dorsal, tenderness, swelling. Chest wall Neurological: Alert and oriented to person, place, time, and situation. Lymphatics Psychiatric: Cooperative, appropriate mood & affect. Medical Decision Making Differential Diagnosis: hand sprain, contusion. Reexamination/ Reevaluation right hand xray shows no acute fracture. patient has her own tam wrap at home and will use as necessary Impression and Plan Diagnosis Hand sprain ([id number] S63.90XA, Discharge, Medical) Plan Condition: Stable. Disposition: Discharged: Time 01/07/18 17:16:00, to home. Patient was given the following educational materials: Intermetacarpal Sprain, Intermetacarpal Sprain. Follow up with: NEO MONTALVO In 2 days 01/09/18. Counseled: Patient, Friend, Regarding treatment plan. DISCHARGE INFORMATION: Discharge Disposition: Home Discharge Location: PATIENT EDUCATION INFORMATION Instructions: Intermetacarpal Sprain Follow-Up: With: Address: When: NEO MONTALVO [address] [place] [address] [employer] In 2 days 01/09/18 DIAGNOSIS: Hand sprain Patient Understands: Yes - Patient/family/caregi joe verbalizes understanding of instructions given Comment: [facility] ED Note - Physicianon 2017 ED Note - Physician Patient: AURORA MENDEZ Age: 32 years Sex: FEMALE : 89 Associated Diagnoses: Hand sprain Author: Lisa Shelton History of Present Illness 32-year-old female presents chief complaint of left hand pain. She was moving a mattress several days ago and feels pain to the dorsal aspect of the left hand has pain with range of motion. Mild soft tissue swelling observed. Patient has no other injury trauma other than moving the object. She did not crush the hand or other injury. She is wondering acute distress she is right-handed and the pain is in the left hand. Review of Systems Constitutional symptoms: Negative except as documented in HPI. Musculoskeletal symptoms: left hand pain . Health Status Allergies: Allergic Reactions (Selected) No Known Medication Allergies. Medications: (Selected) Documented Medications Documented Adipex-P: 18.75 mg, PO, Daily, 0 Refill(s) Synthroid 200 mcg (0.2 mg) oral tablet: 200 mcg, 1 tab(s), PO, Daily, 0 Refill(s) hydrochlorothiazide-t riamterene: PO, Daily, 0 Refill(s) levothyroxine 175 mcg (0.175 mg) oral tablet: 175 mcg, 1 tab(s), PO, Daily, 0 Refill(s). Past Medical/ Family/ Social History Medical history: No active or resolved past medical history items have been selected or recorded.. Surgical history: No active procedure history items have been selected or recorded.. Family history: No family history items have been selected or recorded.. Social history: Social & Psychosocial Habits No Data Available . Problem list: Active Problems (8) Bilateral edema of lower extremity Chemo-Started October, Exercise-induced Asthma Gall Bladder Problems during Hodgkin disease Plantar fasciitis of left foot [M]Hodgkin's disease [M]Hodgkin's disease . Physical Examination Vital Signs Per nurse's notes. General: Alert, no acute distress. Skin: Warm, dry. Head: Normocephalic, atraumatic. Eye: Pupils are equal, round and reactive to light, extraocular movements are intact. Ears, nose, mouth and throat: Tympanic membranes clear, oral mucosa moist. Cardiovascular Respiratory Back: Nontender, Normal range of motion. Musculoskeletal: Normal ROM, normal strength, Hand: Left, dorsal, tenderness, swelling. Chest wall Neurological: Alert and oriented to person, place, time, and situation. Lymphatics Psychiatric: Cooperative, appropriate mood & affect. Medical Decision Making Differential Diagnosis: hand sprain, contusion. Reexamination/ Reevaluation right hand xray shows no acute fracture. patient has her own tam wrap at home and will use as necessary Impression and Plan Diagnosis Hand sprain ([id number] S63.90XA, Discharge, Medical) Plan Condition: Stable. Disposition: Discharged: Time 01/07/18 17:16:00, to home. Patient was given the following educational materials: Intermetacarpal Sprain, Intermetacarpal Sprain. Follow up with: NEO MONTALVO In 2 days 01/09/18. Counseled: Patient, Friend, Regarding treatment plan. [Electronically Signed on: 01/07/2018 17:19 EDT] Lisa Shelton [Verified on: 01/07/2018 17:19 EDT] Lisa Shelton Normal ED Patient Summaryon 018 ED Patient Summary ? Urgent Care [address] [place] [address] PATIENT DISCHARGE INSTRUCTIONS Patient Information Name: AURORA MENDEZ Age: 32 Years Date of : [birth year] Reason For Visit: UC - Hand Injury; LEFT HAND PAIN/INJURY Arrival Time: 01/07/18 16:55:00 Primary Care Physician: NEO MONTALVO Attending Physician: Lisa Shelton Comment: Patient Education With: Address: When: NEO MONTALVO [address] [id number] [facility] (1) In 2 days 01/09/18 Intermetacarpal Sprain Introduction An intermetacarpal sprain happens when tissues between bones in the hand (metacarpals) become overstretched or torn?(ruptured). This usually happens because of an injury to the hand. Intermetacarpal sprains range from mild to severe. They can take up to 2?12 weeks to heal, with proper treatment. What are the causes? This injury is caused by excess pressure or strain (stress) that is applied to the intermetacarpal ligaments. This often happens because of a hard, direct hit or injury (trauma) to the hand. What increases the risk? The following factors may make you more likely to develop this injury: ? A previous hand injury. ? Doing repetitive motions with your hands, such as movements in sports or heavy labor. ? Having poor strength and flexibility in your hands. What are the signs or symptoms? Symptoms of this injury may include: ? A feeling of popping or tearing inside the hand. ? Pain and inflammation, especially in the knuckles. ? Bruising. ? Limited range of motion of the hand. How is this diagnosed? This injury is diagnosed based on a physical exam and your medical history. You may have X-rays to check for breaks (fractures) in your bones. Your sprain may be rated in degrees, based on how severe it is. The ratings include: ? First-degree. A ligament?is stretched but it still has its normal shape. ? Second-degree. A ligament is partially ruptured, and you may have some difficulty moving your hand normally. ? Third-degree. A ligament is completely ruptured, and you may not be able to move the affected hand. How is this treated? This injury is treated by resting, icing, raising (elevating), and applying pressure (compression) to the injured area. Depending on the severity of your sprain, treatment may also include: ? Medicines that help to relieve pain. ? Keeping your hand in a fixed position (immobilization) for a period of time. This may be done using a bandage (dressing), a cast, or a splint. ? Exercises to strengthen and stretch your hand. You may be referred to a physical therapist. ? Surgery. This is rare. Follow these instructions at home: If you have a cast:? Do notstick anything inside the cast to scratch your skin. Doing that increases your risk of infection. ? Check the skin around the cast every day. Report any concerns to your health care provider. You may put lotion on dry skin around the edges of the cast. Do not apply lotion to the skin underneath the cast. ? Do notlet your cast get wet if it is not waterproof. ? Keep the cast clean. If you have a splint:? Wear the splint as told by your health care provider. Remove it only as told by your health care provider. ? Loosen the splint if your fingers tingle, become numb, or turn cold and blue. ? Do notlet your splint get wet if it is not waterproof. ? Keep the splint clean. Bathing? If you have a cast, splint, or dressing, do not take baths, swim, or use a hot tub until your health care provider approves. Ask your health care provider if you can take showers. You may only be allowed to take sponge baths for bathing. ? If you have a cast or splint that is not waterproof, cover it with a watertight plastic bag when you take a bath or a shower. Managing pain, stiffness, and swelling? If directed, apply ice to the injured area:? Put ice in a plastic bag. ? Place a towel between your skin and the bag. ? Leave the ice on for 20 minutes, 2?3 times per day. ? Move your fingers often to avoid stiffness and to lessen swelling. ? Elevate your hand above the level of your heart while you are sitting or lying down. ? Wear a compression wrap only as told by your health care provider. Driving? Do notdrive or operate heavy machinery while taking prescription pain medicine. ? Ask your health care provider when it is safe to drive if you have a cast or splint on a hand that you use for driving. Activity? Return to your normal activities as told by your health care provider. Ask your health care provider what activities are safe for you. ? Avoid activities that cause pain or make your condition worse. ? Do exercises as told by your health care provider or physical therapist. General instructions? Take jwss-pwr-lcmhalx and prescription medicines only as told by your health care provider. ? If you have a cast or a splint, do not put pressure on any part of the cast or splint until it is fully hardened. This may take several hours. ? Do notwear rings on the fingers of your injured hand. ? Keep all follow-up visits as told by your health care provider. This is important. Contact a health care provider if: ? You have symptoms that do not get better after 2 weeks of treatment. ? You have more redness, swelling, or pain in your injured area. ? You have a fever. ? Your cast or splint gets damaged. Get help right away if: ? You have severe pain. ? You develop numbness in your hand or fingers. ? You cannot move your hand or fingers. ? Your hand or fingers feel unusually cold. ? Your hand or fingers turn blue. ? Your fingernails turn a dark color, such as blue or more. This information is not intended to replace advice given to you by your health care provider. Make sure you discuss any questions you have with your health care provider. Document Released: 08/01/2006 Document Revised: 01/06/2017 Document Reviewed: 01/19/2016 ? 2017 [employer] Medication Information: The exam and treatment you received today in the [facility] Emergency Department were for an urgent problem and are not intended as complete care. It is important for you to follow up with a doctor, nurse practitioner, or physician?s special education assistant for ongoing care. If your symptoms become worse or you do not improve as expected and you are unable to reach your usual health care provider, you should return to the Emergency Department, we are available 24 hours a day. For those patients who have received Radiology results, the interpretation of your X-ray as given to you by our Emergency Department physician is only a preliminary report. The Radiologist will review your films and if there is a change in the diagnosis you will be notified by phone. Please make sure you have provided a working phone number so we can reach you if necessary. In the event that you had a lab culture while you were a patient in the Emergency Department, you will be notified by phone if there is a need to change your antibiotic. Please make sure you have provided a working phone number so we can reach you if necessary. Emergency Department has provided you with a complete list of medications post discharge. 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 Any specific questions regarding your chronic medications and dosages should be discussed with your primary care physician(s) and/or pharmacist. Medications to Continue That Have Not Changed Other Medications hydrochlorothiazide-t riamterene Oral every day. levothyroxine (levothyroxine 175 mcg (0.175 mg) oral tablet) 1 tab(s) Oral every day. levothyroxine (Synthroid 200 mcg (0.2 mg) oral tablet) 1 tab(s) Oral every day. phentermine (Adipex-P) 18.75 Milligram Oral every day. Visit Information Visit Diagnosis: Diagnoses This Visit Hand sprain (S63.90XA) UC - Hand Injury ([id number]) If you received any narcotics, sedation, or any other medication that causes drowsiness for the next 24 hours, unless otherwise directed: ? Do not drive a car. ? Do not operate machinery such as power tools, lawn mowers, drills, sewing machines, or stoves ? Avoid alcoholic beverages and drugs for allergies, nerves, or sleep ? Do not make important personal or business decisions or sign any legal documents Reason for Visit: C/O left 4th and 5th finger and hand pain after moving a guzman sized mattress yesterday. Allergies: Substance Reaction Symptoms Type Comments No Known Medication Allergies Drug Vital Signs: Vitals and Measurements this Visit (last charted value for your 01/07/2018 visit) Vital Signs This Visit Temperature Oral: 36.7 DegC Peripheral Pulse Rate: 108 bpm Respiratory Rate: 16 br/min Systolic Blood Pressure: 110 mmHg Diastolic Blood Pressure: 72 mmHg SpO2: 98 % O2 Flow: 0 L/min Measurements This Visit Height: 165.1 cm Weight: 113.4 kg Body Mass Index: 41.6 kg/m2 Problems List: Problem Onset Comments Bilateral edema of lower extremity Chemo-Started October, Exercise-induced Asthma Gall Bladder Problems during Hodgkin disease Plantar fasciitis of left foot [M]Hodgkin's disease [M]Hodgkin's disease Major Tests and Procedures: The following procedures and tests were performed during your ED visit. Laboratory Radiology XR Hand Complete Left 01/07/18 16:57:00 EDT Stat, pain, Allow Modification Per Radiologist, Transport Mode: Cart, 01/07/18 16:57:00 EDT Cardiology Viruses or Bacteria What?s got you sick? Antibiotics only treat bacterial infections. Viral illnesses cannot be treated with antibiotics. When an antibiotic is not prescribed, ask your healthcare professional for tips on how to relieve symptoms and feel better. Usual Cause Illness Viruses Bacteria Antibiotic Needed Cold/Runny Nose NO Bronchitis/Chest Cold (in otherwise healthy children and adults) NO Whooping Cough Yes Flu NO Strep Throat Yes Sore Throat (except strep) NO Fluid in the middle ear (otitis media with effusion) NO Urinary Tract Infection Yes Antibiotics Aren?t Always the Answer www.cdc.gov/getsmart GET SMART Know When Antibiotics Work U.S. Department of Health and Human Services Centers for Disease Control and Prevention April 2014 [facility] 018 Urgent Care Record ? Urgent [facility] [address] [place] [address] PATIENT DISCHARGE INSTRUCTIONS Patient Information Name: AURORA MENDEZ Age: 32 Years Date of : [birth year] Reason For Visit: UC - Hand Injury; LEFT HAND PAIN/INJURY Arrival Time: 01/07/18 16:55:00 Primary Care Physician: NEO MONTALVO Attending Physician: Lisa Shelton Comment: Visit Diagnosis: Diagnoses This Visit Hand sprain (S63.90XA) UC - Hand Injury ([id number]) If you received any narcotics, sedation, or any other medication that causes drowsiness for the next 24 hours, unless otherwise directed: ? Do not drive a car. ? Do not operate machinery such as power tools, lawn mowers, drills, sewing machines, or stoves ? Avoid alcoholic beverages and drugs for allergies, nerves, or sleep ? Do not make important personal or business decisions or sign any legal documents With: Address: When: NEO MONTALVO [address] [place] [address] Business (1) In 2 days 01/09/18 Medication Information: The exam and treatment you received today in the [facility] Care were for an urgent problem and are not intended as complete care. It is important for you to follow up with a doctor, nurse practitioner, or physician?s special education assistant for ongoing care. If your symptoms become worse or you do not improve as expected and you are unable to reach your usual health care provider, you should return to the Emergency Department, we are available 24 hours a day. For those patients who have received Radiology results, the interpretation of your X-ray as given to you by our Urgent Care physician is only a preliminary report. The Radiologist will review your films and if there is a change in the diagnosis you will be notified by phone. Please make sure you have provided a working phone number so we can reach you if necessary. In the event that you had a lab culture while you were a patient in the Urgent Care, you will be notified by phone if there is a need to change your antibiotic. Please make sure you have provided a working phone number so we can reach you if necessary. Urgent Care has provided you with a complete list of medications post discharge. 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 Any specific questions regarding your chronic medications and dosages should be discussed with your primary care physician(s) and/or pharmacist. Medications to Continue That Have Not Changed Other Medications hydrochlorothiazide-t riamterene Oral every day. levothyroxine (levothyroxine 175 mcg (0.175 mg) oral tablet) 1 tab(s) Oral every day. levothyroxine (Synthroid 200 mcg (0.2 mg) oral tablet) 1 tab(s) Oral every day. phentermine (Adipex-P) 18.75 Milligram Oral every day. Visit Information Allergies: Substance Reaction Symptoms Type Comments No Known Medication Allergies Drug Vital Signs: Vitals and Measurements this Visit (last charted value for your 01/07/2018 visit) No vitals and measurements documented Problems List: Problem Onset Comments Bilateral edema of lower extremity Chemo-Started October, Exercise-induced Asthma Gall Bladder Problems during Hodgkin disease Plantar fasciitis of left foot [M]Hodgkin's disease [M]Hodgkin's disease Patient Education Intermetacarpal Sprain Introduction An intermetacarpal sprain happens when tissues between bones in the hand (metacarpals) become overstretched or torn?(ruptured). This usually happens because of an injury to the hand. Intermetacarpal sprains range from mild to severe. They can take up to 2?12 weeks to heal, with proper treatment. What are the causes? This injury is caused by excess pressure or strain (stress) that is applied to the intermetacarpal ligaments. This often happens because of a hard, direct hit or injury (trauma) to the hand. What increases the risk? The following factors may make you more likely to develop this injury: ? A previous hand injury. ? Doing repetitive motions with your hands, such as movements in sports or heavy labor. ? Having poor strength and flexibility in your hands. What are the signs or symptoms? Symptoms of this injury may include: ? A feeling of popping or tearing inside the hand. ? Pain and inflammation, especially in the knuckles. ? Bruising. ? Limited range of motion of the hand. How is this diagnosed? This injury is diagnosed based on a physical exam and your medical history. You may have X-rays to check for breaks (fractures) in your bones. Your sprain may be rated in degrees, based on how severe it is. The ratings include: ? First-degree. A ligament?is stretched but it still has its normal shape. ? Second-degree. A ligament is partially ruptured, and you may have some difficulty moving your hand normally. ? Third-degree. A ligament is completely ruptured, and you may not be able to move the affected hand. How is this treated? This injury is treated by resting, icing, raising (elevating), and applying pressure (compression) to the injured area. Depending on the severity of your sprain, treatment may also include: ? Medicines that help to relieve pain. ? Keeping your hand in a fixed position (immobilization) for a period of time. This may be done using a bandage (dressing), a cast, or a splint. ? Exercises to strengthen and stretch your hand. You may be referred to a physical therapist. ? Surgery. This is rare. Follow these instructions at home: If you have a cast:? Do notstick anything inside the cast to scratch your skin. Doing that increases your risk of infection. ? Check the skin around the cast every day. Report any concerns to your health care provider. You may put lotion on dry skin around the edges of the cast. Do not apply lotion to the skin underneath the cast. ? Do notlet your cast get wet if it is not waterproof. ? Keep the cast clean. If you have a splint:? Wear the splint as told by your health care provider. Remove it only as told by your health care provider. ? Loosen the splint if your fingers tingle, become numb, or turn cold and blue. ? Do notlet your splint get wet if it is not waterproof. ? Keep the splint clean. Bathing? If you have a cast, splint, or dressing, do not take baths, swim, or use a hot tub until your health care provider approves. Ask your health care provider if you can take showers. You may only be allowed to take sponge baths for bathing. ? If you have a cast or splint that is not waterproof, cover it with a watertight plastic bag when you take a bath or a shower. Managing pain, stiffness, and swelling? If directed, apply ice to the injured area:? Put ice in a plastic bag. ? Place a towel between your skin and the bag. ? Leave the ice on for 20 minutes, 2?3 times per day. ? Move your fingers often to avoid stiffness and to lessen swelling. ? Elevate your hand above the level of your heart while you are sitting or lying down. ? Wear a compression wrap only as told by your health care provider. Driving? Do notdrive or operate heavy machinery while taking prescription pain medicine. ? Ask your health care provider when it is safe to drive if you have a cast or splint on a hand that you use for driving. Activity? Return to your normal activities as told by your health care provider. Ask your health care provider what activities are safe for you. ? Avoid activities that cause pain or make your condition worse. ? Do exercises as told by your health care provider or physical therapist. General instructions? Take eqnu-zhj-bjgmbdy and prescription medicines only as told by your health care provider. ? If you have a cast or a splint, do not put pressure on any part of the cast or splint until it is fully hardened. This may take several hours. ? Do notwear rings on the fingers of your injured hand. ? Keep all follow-up visits as told by your health care provider. This is important. Contact a health care provider if: ? You have symptoms that do not get better after 2 weeks of treatment. ? You have more redness, swelling, or pain in your injured area. ? You have a fever. ? Your cast or splint gets damaged. Get help right away if: ? You have severe pain. ? You develop numbness in your hand or fingers. ? You cannot move your hand or fingers. ? Your hand or fingers feel unusually cold. ? Your hand or fingers turn blue. ? Your fingernails turn a dark color, such as blue or more. This information is not intended to replace advice given to you by your health care provider. Make sure you discuss any questions you have with your health care provider. Document Released: 08/01/2006 Document Revised: 01/06/2017 Document Reviewed: 01/19/2016 ? 2017 [employer] Viruses or Bacteria What?s got you sick? Antibiotics only treat bacterial infections. Viral illnesses cannot be treated with antibiotics. When an antibiotic is not prescribed, ask your healthcare professional for tips on how to relieve symptoms and feel better. Usual Cause Illness Viruses Bacteria Antibiotic Needed Cold/Runny Nose NO Bronchitis/Chest Cold (in otherwise healthy children and adults) NO Whooping Cough Yes Flu NO Strep Throat Yes Sore Throat (except strep) NO Fluid in the middle ear (otitis media with effusion) NO Urinary Tract Infection Yes Antibiotics Aren?t Always the Answer www.cdc.gov/getsmart GET SMART Know When Antibiotics Work U.S. Department of Health and Human Services Centers for Disease Control and Prevention April 2014 [facility] XR Hand Complete Lefton 05 XR Hand Complete Left HAND COMPLETE LEFT CLINICAL DATA: Possible hyperextension injury to left hand while moving a bed yesterday, pain Four views of the left hand were obtained. No definite acute fracture or dislocation is seen. No significant focal osseous or articular abnormalities are identified. Soft tissues are grossly within normal limits. IMPRESSION: 1. LEFT HAND STUDY FAILS TO DEMONSTRATE DEFINITE ACUTE FRACTURE OR DISLOCATION. 2. FOLLOW-UP NEEDED. Mayank Cameron MD JOB #: [id number] bk Final Dictated by: Mayank Cameron MD Dictated DT/TM: 01/08/18 6:15 Signed (Electronic Signature): Mayank Cameron MD 01/08/18 10:52 a Technologist: YOSEF LOPEZ [facility] Coding Summaryon 11-21-2017 Coding Summary CODING DATE: 11/21/2017 [facility] STATUS: Home PAYOR: Commercial Insurance ADMIT DX: REASON FOR VISIT DX: R50.9 Fever, unspecified FINAL DX: PRINCIPAL: R82.90 Unspecified abnormal findings in urine SECONDARY: M54.9 Dorsalgia, unspecified R50.9 Fever, unspecified R31.29 Other microscopic hematuria Z87.448 Personal history of other diseases of urinary system Z85.71 Personal history of Hodgkin lymphoma PROCEDURES DOCTOR NAME DATE NOTE: The code number assigned matches the documented diagnosis and / or procedure in the patient's chart. However, the narrative phrase printed from the coding software may appear abbreviated, or result in slightly different terminology. Coded By: Kaela Fair Date Saved: 11/21/2017 02:27 pm [facility] Coding Summary CODING DATE: 11/21/2017 [facility] STATUS: Home PAYOR: Commercial Insurance ADMIT DX: REASON FOR VISIT DX: R50.9 Fever, unspecified FINAL DX: PRINCIPAL: R82.90 Unspecified abnormal findings in urine SECONDARY: M54.9 Dorsalgia, unspecified R50.9 Fever, unspecified R31.29 Other microscopic hematuria Z87.448 Personal history of other diseases of urinary system Z85.71 Personal history of Hodgkin lymphoma PROCEDURES DOCTOR NAME DATE NOTE: The code number assigned matches the documented diagnosis and / or procedure in the patient's chart. However, the narrative phrase printed from the coding software may appear abbreviated, or result in slightly different terminology. Coded By: Kaela Fair Date Saved: 11/21/2017 02:25 pm Normal C Urineon 11-17-2017 C Urine 30,000 cfu/ml Mixed skin, or urogenital aaron. Clinically insignificant [facility] Comment on above: Performed By: #### [id number] #### [facility] (DEFAULT) [address] [place] [address] ED Clinical Summaryon 2017 ED Clinical Summary - Emergency Department [address] [place] [address] ED Clinical Summary PERSON INFORMATION Name: AURORA MENDEZ Age: 32 Years Sex: FEMALE : [birth year] MRN: Acct#: Visit Reason: Back pain; LOWER BACK/LOWER ABD PAIN, FEVER Arrival: 11/15/17 11:34:00 Discharge: 11/15/17 12:50:00 LOS: 000 01:16 Check In: 11/15/17 11:34:00 Checkout:11/15/17 12:50:00 Address: [address] [place] [address] PCP: NEO MONTALVO PROVIDER INFORMATION Provider Role Assigned Unassigned Les Bennett ED 11/15/17 11:35:26 Stacia Platt ED Nurse 11/15/17 11:38:21 VITALS INFORMATION Vital Sign Triage Latest Temperature Tympanic Temperature Temporal Artery Pulse Rate 109 bpm 109 bpm O2 Sat 97 % 97 % Respiratory Rate 18 br/min 18 br/min Blood Pressure 118 mmHg/74 mmHg 118 mmHg/74 mmHg MEDICAL INFORMATION Medications Given: Medication Dose Route ibuprofen 800 mg PO Allergy Information: No Known Medication Allergies PHYSICIAN DOCUMENTATION DISCHARGE INFORMATION: Discharge Disposition: Home Discharge Location: Home PATIENT EDUCATION INFORMATION Instructions: Dysuria; Pyelonephritis, Adult; Fever, Adult; Hematuria, Adult Follow-Up: With: Address: When: NEO MONTALVO [address] [place], [place] [id number] Business (1) Within 3 to 5 days Comments: Diagnosis is CVAtenderness bilaterally, this is not your back but is in the area of the back,, left side greater than right, history of pyelonephritis, fever, abnormal urinalysis and hematuria, with negative influenza swab. Report having 2 day history of low-grade fever ranging anywhere from 99-102, having intermittent dysuria or pain with urination, you had pyelonephritis in 2017, you report the same symptoms, urinalysis abnormal but does not show evidence of obvious urinary tract infection, this could be early in its development, even have a kidney stone. At this time on the basis of history, and abnormal urinalysis were starting you on ciprofloxacin, we discussed the black box warning in regards to spontaneous tendon rupture, avoid any contact sports running or jumping. Providing you with a prescription for Pyridium to help with dysuria, may turn urine orange. For any fever you may develop and back pain, you may take [id number] Tylenol and/or ibuprofen. We discussed about laboratory workup, including CT scan of abdomen and pelvis, but you declined at this time. Follow up with primary care fire next 3-5 days for reevaluation. Return to the emergency department for worsening symptoms or concerns, spiking fevers, onset of abdominal pain, worsening symptoms, acute shortness of breath or chest pain, inability urinate, any questions return DIAGNOSIS: Abnormal urinalysis; CVA tenderness; Fever in adult; Hematuria, microscopic; History of pyelonephritis Patient Understands: Yes - Patient/family/caregi joe verbalizes understanding of instructions given Comment: [facility] ED Note - Physicianon 2017 ED Note - Physician Patient: AURORA MENDEZ Age: 32 years Sex: FEMALE : 89 Associated Diagnoses: Abnormal urinalysis; CVA tenderness; Fever in adult; Hematuria, microscopic; History of pyelonephritis Author: Les Bennett Basic Information Time seen: Date & time 11/15/17 12:01:00. History source: Patient. Arrival mode: Private vehicle. History limitation: None. Additional information: Chief Complaint from Nursing Triage Note : Chief Complaint 11/15/17 11:36 EDT Chief Complaint Pt complains of fever and pain across low back since Tuesday evening. . History of Present Illness Patient is a 32-year-old female who has a history of pyelonephritis, and 2017, who presents to the emergency department with a three-day history of fever ranging from 99-102, and low back pain, and intermittent dysuria, seen in room 4. Patient states that she has the same symptoms she had about a year ago when she was diagnosed with pyelonephritis, she states that Tuesday she started to have some back pain it seemed to be on both sides in the area of her kidneys, but the left side is really bothering her more than the right, she had a low-grade fever at 99 at first, but has been up to 102 she's been treating the fever with intermittent doses of Tylenol and ibuprofen, she states that she thought she had the flu with a fever, but then with the back pain, and also intermittent dysuria she thinks she has pyelonephritis again, she previously had have a CT scan of blood work and be admitted for a week to get better and wants to prevent that. She is not having hematuria, she has not had a menstrual period in 7 years and she has IUD. Her last bowel movement was yesterday, little bit of loose stool, but no blood in her stool. Patient denies any history of strain or fall or injury to back. Review of Systems Constitutional symptoms: Fever. Skin symptoms: No rash, no abrasions. Eye symptoms: No discharge, no diplopia. ENMT symptoms: Negative except as documented in HPI. Respiratory symptoms: No shortness of breath, Cardiovascular symptoms: No chest pain, Gastrointestinal symptoms: No abdominal pain, no nausea, no vomiting. Genitourinary symptoms: Negative except as documented in HPI. Musculoskeletal symptoms: Negative except as documented in HPI. Health Status Allergies: Allergic Reactions (All) No Known Medication Allergies Canceled/Inactive Reactions (All) No known allergies. Medications: (Selected) Documented Medications Documented Synthroid 200 mcg (0.2 mg) oral tablet: 200 mcg, 1 tab(s), PO, Daily, 0 Refill(s). Past Medical/ Family/ Social History Medical history: No active or resolved past medical history items have been selected or recorded.. Surgical history: No active procedure history items have been selected or recorded.. Family history: No family history items have been selected or recorded.. Social history: Social & Psychosocial Habits No Data Available . Problem list: Active Problems (8) Bilateral edema of lower extremity Chemo-Started October, Exercise-induced Asthma Gall Bladder Problems during Hodgkin disease Plantar fasciitis of left foot [M]Hodgkin's disease [M]Hodgkin's disease . Physical Examination Vital Signs Vital Signs 11/15/17 11:36 EDT Temperature Oral 37.4 DegC HI Peripheral Pulse Rate 109 bpm HI Respiratory Rate 18 br/min Systolic Blood Pressure 118 mmHg Diastolic Blood Pressure 74 mmHg SpO2 97 % Oxygen Therapy Room air . Measurements 11/15/17 11:55 EDT Weight Dosing 117.930 kg 11/15/17 11:55 EDT Height/Length Dosing 166.370 cm 11/15/17 11:36 EDT Height/Length Estimated 166.370 cm Weight Estimated 117.930 kg . General: Alert, no acute distress. Skin: Warm, dry. Head: Normocephalic, atraumatic. Neck: Supple, trachea midline. Eye: Extraocular movements are intact, normal conjunctiva. Cardiovascular: +S1, S2 Regular. Respiratory: Lungs are clear to auscultation, respirations are non-labored, breath sounds are equal, There is no wheezing, there is no stridor. Gastrointestinal: Abdomen is obese, bowel sounds are present, there is no guarding or rebound, little tenderness in the suprapubic region.. Back: Patient has bilateral CVA tenderness, left is more pronounced than right there is no pain with palpation of the thoracic or lumbar spine. Neurological: Alert and oriented to person, place, time, and situation, No focal neurological deficit observed. Psychiatric: Cooperative. Medical Decision Making Differential Diagnosis: Back pain, lumbar strain, urinary tract infection, pyelonephritis, Kidney stone. Orders Launch Orders Laboratory: Rapid Flu A&B (Order): Swab, 11/15/17 12:08 EDT, Stat collect, Nurse collect Pharmacy: ibuprofen (Order): 800 mg, PO, Once, Launch Orders Laboratory: hCG urine Qualitative 1 (Order): Urine, Stat collect, 11/15/17 12:11 EDT, Nurse collect, Launch Orders Miscellaneous Request: Excuse from Work/School (Order): 11/15/17 12:32 EDT, Patient to be excused from work 11/15/2017. Results review: Lab results : Lab Flowsheet 11/15/17 12:11 EDT U Preg Negative 11/15/17 12:08 EDT Influenza A Negative Influenza B Negative 11/15/17 11:50 EDT UA Color YELLOW UA Clarity CLOUDY UA Glucose NEGATIVE UA Ketones TRACE mg/dL UA Spec Grav 1.020 UA Blood TRACE UA pH 6.5 UA Protein 30 mg/dL UA Urobilinogen 0.2 mg/dL UA Nitrite NEGATIVE UA Leuk Est TRACE UA Bilirubin SMALL Urine Source Clean Catch Micro? Indicated Culture? Yes UA WBC 10-15 UA RBC 5-10 UA Squam Epi Many UA Bacteria 2+ . Reexamination/ Reevaluation Patient is a 32-year-old female who presents to the emergency department for evaluation of fever, low back pain, and dysuria, with a history of pyelonephritis. From physical exam, patient has CVA tenderness bilaterally more so on the left side, and a little suprapubic tenderness, but there is no acute abdominal pain with guarding and rebound. I discussed the patient with her history she has a strong correlation for probable early pyelonephritis, and we could obtain urine, and if it has infection, we can start her on antibiotics we discussed the treatment for pyelonephritis being Cipro. I discussed with her depth in regards to the black box warning, and the possibility of tendon rupture spontaneously. I discussed her that at this time if the urine comes back positive, we can treat her with antibiotics do not necessarily need to get a CT scan, or blood work and she can see her own primary care provider in 3-5 days for reevaluation. Patient's influenza swab comes back negative, urinalysis comes back with trace amount of blood, trace amount of leukoesterase, 10-15 WBCs, 2+ bacteria but also many squamous epithelial, so that could be a possible contaminant. With this information, patient may have a kidney stone may be still pyelonephritis, I discussed with her that at this time we could obtain blood work, and a CT scan to see if there is some pathology in regards to her kidney stone, and imaging studies that may be consistent with pyelonephritis. Patient stated at this time she did not want any blood work or CT scan, but with abnormal urinalysis and history we'll start her on Cipro 250 twice a day, she does not want any pain medication we discussed about utilizing Ultram dose of Tylenol and Ronel for fever, and for pain relief. She'll follow up with primary care provider in 3-5 days, return for worsening symptoms or Impression and Plan Diagnosis Abnormal urinalysis ([id number] R82.90, Discharge, Medical) CVA tenderness ([id number]-DC M54.9, Discharge, Medical) Fever in adult ([id number] R50.9, Discharge, Medical) Hematuria, microscopic (XKO62-NH R31.29, Discharge, Medical) History of pyelonephritis ([id number]-UM Z87.448, Discharge, Medical) Plan Condition: Improved, Stable. Disposition: Discharged: Time 11/15/17 12:35:00, to home. Prescriptions: Launch prescriptions Pharmacy: Pyridium 200 mg oral tablet (Prescribe): 200 mg, 1 tab(s), PO, TID, for 2 day(s), with food, may cause your urine to become orange, 6 tab(s), 0 Refill(s) Cipro 250 mg oral tablet (Prescribe): 250 mg, 1 tab(s), PO, q12hr, for 7 day(s), 14 tab(s), 0 Refill(s). Patient was given the following educational materials: Hematuria, Adult, Fever, Adult, Pyelonephritis, Adult, Dysuria, Dysuria, Pyelonephritis, Adult, Fever, Adult, Hematuria, Adult. Follow up with: NEO MONTALVO Within 3 to 5 days Diagnosis is CVAtenderness bilaterally, this is not your back but is in the area of the back,, left side greater than right, history of pyelonephritis, fever, abnormal urinalysis and hematuria, with negative influenza swab. Report having 2 day history of low-grade fever ranging anywhere from 99-102, having intermittent dysuria or pain with urination, you had pyelonephritis in 2017, you report the same symptoms, urinalysis abnormal but does not show evidence of obvious urinary tract infection, this could be early in its development, even have a kidney stone. At this time on the basis of history, and abnormal urinalysis were starting you on ciprofloxacin, we discussed the black box warning in regards to spontaneous tendon rupture, avoid any contact sports running or jumping. Providing you with a prescription for Pyridium to help with dysuria, may turn urine orange. For any fever you may develop and back pain, you may take hqfy-xys-crcwjeg Tylenol and/or ibuprofen. We discussed about laboratory workup, including CT scan of abdomen and pelvis, but you declined at this time. Follow up with primary care fire next 3-5 days for reevaluation. Return to the emergency department for worsening symptoms or concerns, spiking fevers, onset of abdominal pain, worsening symptoms, acute shortness of breath or chest pain, inability urinate, any questions return. Counseled: Patient, Regarding diagnosis, Regarding diagnostic results, Regarding treatment plan, Regarding prescription, Patient indicated understanding of instructions. [Electronically Signed on: 11/15/2017 13:13 EDT] Les Bennett [Verified on: 11/15/2017 13:13 EDT] Les Bennett [facility] ED Patient Education Noteon 11-15-2017 ED Patient Education Note Education Materials Infectious Disease Fever, Adult A fever is an increase in the body?s temperature. It is usually defined as a temperature of 100?F (38?C) or higher. Brief mild or moderate fevers generally have no long-term effects, and they often do not require treatment. Moderate or high fevers may make you feel uncomfortable and can sometimes be a sign of a serious illness or disease. The sweating that may occur with repeated or prolonged fever may also cause dehydration. Fever is confirmed by taking a temperature with a thermometer. A measured temperature can vary with: ? Age. ? Time of day. ? Location of the thermometer: ? Mouth (oral). ? Rectum (rectal). ? Ear (tympanic). ? Underarm (axillary). ? Forehead (temporal). Follow these instructions at home: Pay attention to any changes in your symptoms. Take these actions to help with your condition: ? Take over-the counter and prescription medicines only as told by your health care provider. Follow the dosing instructions carefully. ? If you were prescribed an antibiotic medicine, take it as told by your health care provider. Do not stop taking the antibiotic even if you start to feel better. ? Rest as needed. ? Drink enough fluid to keep your urine clear or pale yellow. This helps to prevent dehydration. ? Sponge yourself or bathe with room-temperature water to help reduce your body temperature as needed. Do not use ice water. ? Do notoverbundle yourself in blankets or heavy clothes. Contact a health care provider if: ? You vomit. ? You cannot eat or drink without vomiting. ? You have diarrhea. ? You have pain when you urinate. ? Your symptoms do not improve with treatment. ? You develop new symptoms. ? You develop excessive weakness. Get help right away if: ? You have shortness of breath or have trouble breathing. ? You are dizzy or you faint. ? You are disoriented or confused. ? You develop signs of dehydration, such as a dry mouth, decreased urination, or paleness. ? You develop severe pain in your abdomen. ? You have persistent vomiting or diarrhea. ? You develop a skin rash. ? Your symptoms suddenly get worse. This information is not intended to replace advice given to you by your health care provider. Make sure you discuss any questions you have with your health care provider. Document Released: 01/25/2002 Document Revised: 01/06/2017 Document Reviewed: 09/25/2015 [employer] Patient Education ? 2017 [employer]. Nephrology Pyelonephritis, Adult Introduction Pyelonephritis is a kidney infection. The kidneys are the organs that filter a person's blood and move waste out of the bloodstream and into the urine. Urine passes from the kidneys, through the ureters, and into the bladder. There are two main types of pyelonephritis: ? Infections that come on quickly without any warning (acute pyelonephritis). ? Infections that last for a long period of time (chronic pyelonephritis). In most cases, the infection clears up with treatment and does not cause further problems. More severe infections or chronic infections can sometimes spread to the bloodstream or lead to other problems with the kidneys. What are the causes? This condition is usually caused by: ? Bacteria traveling from the bladder to the kidney through infected urine. The urine in the bladder can become infected with bacteria from:? Bladder infection (cystitis). ? Inflammation of the prostate gland (prostatitis). ? Sexual intercourse, in females. ? Bacteria traveling from the bloodstream to the kidney. What increases the risk? This condition is more likely to develop in:? women. ? Older people. ? People who have diabetes. ? People who have kidney stones or bladder stones. ? People who have other abnormalities of the kidney or ureter. ? People who have a catheter placed in the bladder. ? People who have cancer. ? People who are sexually active. ? Women who use spermicides. ? People who have had a prior urinary tract infection. What are the signs or symptoms? Symptoms of this condition include:? Frequent urination. ? Strong or persistent urge to urinate. ? Burning or stinging when urinating. ? Abdominal pain. ? Back pain. ? Pain in the side or flank area. ? Fever. ? Chills. ? Blood in the urine, or dark urine. ? Nausea. ? Vomiting. How is this diagnosed? This condition may be diagnosed based on:? Medical history and physical exam. ? Urine tests. ? Blood tests. You may also have imaging tests of the kidneys, such as an ultrasound or CT scan. How is this treated? Treatment for this condition may depend on the severity of the infection.? If the infection is mild and is found early, you may be treated with antibiotic medicines taken by mouth. You will need to drink fluids to remain hydrated. ? If the infection is more severe, you may need to stay in the hospital and receive antibiotics given directly into a vein through an IV tube. You may also need to receive fluids through an IV tube if you are not able to remain hydrated. After your hospital stay, you may need to take oral antibiotics for a period of time. Other treatments may be required, depending on the cause of the infection. Follow these instructions at home: Medicines? Take ojvu-bkw-kfyeams and prescription medicines only as told by your health care provider. ? If you were prescribed an antibiotic medicine, take it as told by your health care provider. Do not stop taking the antibiotic even if you start to feel better. General instructions? Drink enough fluid to keep your urine clear or pale yellow. ? Avoid caffeine, tea, and carbonated beverages. They tend to irritate the bladder. ? Urinate often. Avoid holding in urine for long periods of time. ? Urinate before and after sex. ? After a bowel movement, women should cleanse from front to back. Use each tissue only once. ? Keep all follow-up visits as told by your health care provider. This is important. Contact a health care provider if: ? Your symptoms do not get better after 2 days of treatment. ? Your symptoms get worse. ? You have a fever. Get help right away if: ? You are unable to take your antibiotics or fluids. ? You have shaking chills. ? You vomit. ? You have severe flank or back pain. ? You have extreme weakness or fainting. This information is not intended to replace advice given to you by your health care provider. Make sure you discuss any questions you have with your health care provider. Document Released: 08/01/2006 Document Revised: 01/06/2017 Document Reviewed: 11/24/2015 ? 2017 [facility] Urology Dysuria Introduction Dysuria is pain or discomfort while urinating. The pain or discomfort may be felt in the tube that carries urine out of the bladder (urethra) or in the surrounding tissue of the genitals. The pain may also be felt in the groin area, lower abdomen, and lower back. You may have to urinate frequently or have the sudden feeling that you have to urinate (urgency). Dysuria can affect both men and women, but is more common in women. Dysuria can be caused by many different things, including: ? Urinary tract infection in women. ? Infection of the kidney or bladder. ? Kidney stones or bladder stones. ? Certain sexually transmitted infections (STIs), such as chlamydia. ? Dehydration. ? Inflammation of the vagina. ? Use of certain medicines. ? Use of certain soaps or scented products that cause irritation. Follow these instructions at home: Watch your dysuria for any changes. The following actions may help to reduce any discomfort you are feeling: ? Drink enough fluid to keep your urine clear or pale yellow. ? Empty your bladder often. Avoid holding urine for long periods of time. ? After a bowel movement or urination, women should cleanse from front to back, using each tissue only once. ? Empty your bladder after sexual intercourse. ? Take medicines only as directed by your health care provider. ? If you were prescribed an antibiotic medicine, finish it all even if you start to feel better. ? Avoid caffeine, tea, and alcohol. They can irritate the bladder and make dysuria worse. In men, alcohol may irritate the prostate. ? Keep all follow-up visits as directed by your health care provider. This is important. ? If you had any tests done to find the cause of dysuria, it is your responsibility to obtain your test results. Ask the lab or department performing the test when and how you will get your results. Talk with your health care provider if you have any questions about your results. Contact a health care provider if: ? You develop pain in your back or sides. ? You have a fever. ? You have nausea or vomiting. ? You have blood in your urine. ? You are not urinating as often as you usually do. Get help right away if: ? You pain is severe and not relieved with medicines. ? You are unable to hold down any fluids. ? You or someone else notices a change in your mental function. ? You have a rapid heartbeat at rest. ? You have shaking or chills. ? You feel extremely weak. This information is not intended to replace advice given to you by your health care provider. Make sure you discuss any questions you have with your health care provider. Document Released: 04/29/2005 Document Revised: 01/06/2017 Document Reviewed: 03/27/2015 ? 2017 [employer] Hematuria, Adult Hematuria is blood in your urine. It can be caused by a bladder infection, kidney infection, prostate infection, kidney stone, or cancer of your urinary tract. Infections can usually be treated with medicine, and a kidney stone usually will pass through your urine. If neither of these is the cause of your hematuria, further workup to find out the reason may be needed. It is very important that you tell your health care provider about any blood you see in your urine, even if the blood stops without treatment or happens without causing pain. Blood in your urine that happens and then stops and then happens again can be a symptom of a very serious condition. Also, pain is not a symptom in the initial stages of many urinary cancers. Follow these instructions at home: ? Drink lots of fluid, 3?4 quarts a day. If you have been diagnosed with an infection, cranberry juice is especially recommended, in addition to large amounts of water. ? Avoid caffeine, tea, and carbonated beverages because they tend to irritate the bladder. ? Avoid alcohol because it may irritate the prostate. ? Take all medicines as directed by your health care provider. ? If you were prescribed an antibiotic medicine, finish it all even if you start to feel better. ? If you have been diagnosed with a kidney stone, follow your health care provider's instructions regarding straining your urine to catch the stone. ? Empty your bladder often. Avoid holding urine for long periods of time. ? After a bowel movement, women should cleanse front to back. Use each tissue only once. ? Empty your bladder before and after sexual intercourse if you are a female. Contact a health care provider if: ? You develop back pain. ? You have a fever. ? You have a feeling of sickness in your stomach (nausea) or vomiting. ? Your symptoms are not better in 3 days. Return sooner if you are getting worse. Get help right away if: ? You develop severe vomiting and are unable to keep the medicine down. ? You develop severe back or abdominal pain despite taking your medicines. ? You begin passing a large amount of blood or clots in your urine. ? You feel extremely weak or faint, or you pass out. This information is not intended to replace advice given to you by your health care provider. Make sure you discuss any questions you have with your health care provider. Document Released: 08/01/2006 Document Revised: 01/06/2017 Document Reviewed: 04/01/2014 [employer] Interactive Patient Education ? 2017 [employer] Normal ED Patient Summaryon 018 ED Patient Summary - Emergency Department [address] [place] [address] PATIENT DISCHARGE INSTRUCTIONS Patient Information Name: AURORA MENDEZ Age: 32 Years Date of : [birth year] Reason For Visit: Back pain; LOWER BACK/LOWER ABD PAIN, FEVER Arrival Time: 11/15/17 11:34:00 Primary Care Physician: NEO MONTALVO Attending Physician: Blaine Carlisle MD Comment: Visit Diagnosis: Diagnoses This Visit Abnormal urinalysis (R82.90) Back pain ([id number]) CVA tenderness (M54.9) Fever in adult (R50.9) Hematuria, microscopic (R31.29) History of pyelonephritis (Z87.448) If you received any narcotics, sedation, or any other medication that causes drowsiness for the next 24 hours, unless otherwise directed: ? Do not drive a car. ? Do not operate machinery such as power tools, lawn mowers, drills, sewing machines, or stoves ? Avoid alcoholic beverages and drugs for allergies, nerves, or sleep ? Do not make important personal or business decisions or sign any legal documents With: Address: When: NEO MONTALVO [address] [place] [id number] Business (1) Within 3 to 5 days Comments: Diagnosis is CVAtenderness bilaterally, this is not your back but is in the area of the back,, left side greater than right, history of pyelonephritis, fever, abnormal urinalysis and hematuria, with negative influenza swab. Report having 2 day history of low-grade fever ranging anywhere from 99-102, having intermittent dysuria or pain with urination, you had pyelonephritis in 2017, you report the same symptoms, urinalysis abnormal but does not show evidence of obvious urinary tract infection, this could be early in its development, even have a kidney stone. At this time on the basis of history, and abnormal urinalysis were starting you on ciprofloxacin, we discussed the black box warning in regards to spontaneous tendon rupture, avoid any contact sports running or jumping. Providing you with a prescription for Pyridium to help with dysuria, may turn urine orange. For any fever you may develop and back pain, you may take rghg-sfr-estlbzo Tylenol and/or ibuprofen. We discussed about laboratory workup, including CT scan of abdomen and pelvis, but you declined at this time. Follow up with primary care fire next 3-5 days for reevaluation. Return to the emergency department for worsening symptoms or concerns, spiking fevers, onset of abdominal pain, worsening symptoms, acute shortness of breath or chest pain, inability urinate, any questions return Medication Information: The exam and treatment you received today in the [facility] Emergency Department were for an urgent problem and are not intended as complete care. It is important for you to follow up with a doctor, nurse practitioner, or physician?s special education assistant for ongoing care. If your symptoms become worse or you do not improve as expected and you are unable to reach your usual health care provider, you should return to the Emergency Department, we are available 24 hours a day. For those patients who have received Radiology results, the interpretation of your X-ray as given to you by our Emergency Department physician is only a preliminary report. The Radiologist will review your films and if there is a change in the diagnosis you will be notified by phone. Please make sure you have provided a working phone number so we can reach you if necessary. In the event that you had a lab culture while you were a patient in the Emergency Department, you will be notified by phone if there is a need to change your antibiotic. Please make sure you have provided a working phone number so we can reach you if necessary. Emergency Department has provided you with a complete list of medications post discharge. 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 Any specific questions regarding your chronic medications and dosages should be discussed with your primary care physician(s) and/or pharmacist. New Medications Printed Prescriptions ciprofloxacin (Cipro 250 mg oral tablet) 1 tab(s) Oral Every 12 hours scheduled time for 7 Days. Refills: 0. phenazopyridine (Pyridium 200 mg oral tablet) 1 tab(s) Oral 3 times a day for 2 Days. with food, may cause your urine to become orange. Refills: 0. Medications to Continue That Have Not Changed Other Medications levothyroxine (Synthroid 200 mcg (0.2 mg) oral tablet) 1 tab(s) Oral every day. Visit Information Allergies: Substance Reaction Symptoms Type Comments No Known Medication Allergies Drug Vital Signs: Vitals and Measurements this Visit (last charted value for your 11/15/2017 visit) Vital Signs This Visit Temperature Oral: 37.4 DegC Peripheral Pulse Rate: 109 bpm Respiratory Rate: 18 br/min Systolic Blood Pressure: 118 mmHg Diastolic Blood Pressure: 74 mmHg SpO2: 97 % Oxygen Therapy: Room air Measurements This Visit Height/Length Dosin.370 cm Height/Length Estimated: 166.370 cm Weight Dosin.930 kg Weight Estimated: 117.930 kg Problems List: Problem Onset Comments Bilateral edema of lower extremity Chemo-Started October, Exercise-induced Asthma Gall Bladder Problems during Hodgkin disease Plantar fasciitis of left foot [M]Hodgkin's disease [M]Hodgkin's disease Patient Education Dysuria Introduction Dysuria is pain or discomfort while urinating. The pain or discomfort may be felt in the tube that carries urine out of the bladder (urethra) or in the surrounding tissue of the genitals. The pain may also be felt in the groin area, lower abdomen, and lower back. You may have to urinate frequently or have the sudden feeling that you have to urinate (urgency). Dysuria can affect both men and women, but is more common in women. Dysuria can be caused by many different things, including: ? Urinary tract infection in women. ? Infection of the kidney or bladder. ? Kidney stones or bladder stones. ? Certain sexually transmitted infections (STIs), such as chlamydia. ? Dehydration. ? Inflammation of the vagina. ? Use of certain medicines. ? Use of certain soaps or scented products that cause irritation. Follow these instructions at home: Watch your dysuria for any changes. The following actions may help to reduce any discomfort you are feeling: ? Drink enough fluid to keep your urine clear or pale yellow. ? Empty your bladder often. Avoid holding urine for long periods of time. ? After a bowel movement or urination, women should cleanse from front to back, using each tissue only once. ? Empty your bladder after sexual intercourse. ? Take medicines only as directed by your health care provider. ? If you were prescribed an antibiotic medicine, finish it all even if you start to feel better. ? Avoid caffeine, tea, and alcohol. They can irritate the bladder and make dysuria worse. In men, alcohol may irritate the prostate. ? Keep all follow-up visits as directed by your health care provider. This is important. ? If you had any tests done to find the cause of dysuria, it is your responsibility to obtain your test results. Ask the lab or department performing the test when and how you will get your results. Talk with your health care provider if you have any questions about your results. Contact a health care provider if: ? You develop pain in your back or sides. ? You have a fever. ? You have nausea or vomiting. ? You have blood in your urine. ? You are not urinating as often as you usually do. Get help right away if: ? You pain is severe and not relieved with medicines. ? You are unable to hold down any fluids. ? You or someone else notices a change in your mental function. ? You have a rapid heartbeat at rest. ? You have shaking or chills. ? You feel extremely weak. This information is not intended to replace advice given to you by your health care provider. Make sure you discuss any questions you have with your health care provider. Document Released: 04/29/2005 Document Revised: 01/06/2017 Document Reviewed: 03/27/2015 ? 2017 [employer] Pyelonephritis, Adult Introduction Pyelonephritis is a kidney infection. The kidneys are the organs that filter a person's blood and move waste out of the bloodstream and into the urine. Urine passes from the kidneys, through the ureters, and into the bladder. There are two main types of pyelonephritis: ? Infections that come on quickly without any warning (acute pyelonephritis). ? Infections that last for a long period of time (chronic pyelonephritis). In most cases, the infection clears up with treatment and does not cause further problems. More severe infections or chronic infections can sometimes spread to the bloodstream or lead to other problems with the kidneys. What are the causes? This condition is usually caused by: ? Bacteria traveling from the bladder to the kidney through infected urine. The urine in the bladder can become infected with bacteria from:? Bladder infection (cystitis). ? Inflammation of the prostate gland (prostatitis). ? Sexual intercourse, in females. ? Bacteria traveling from the bloodstream to the kidney. What increases the risk? This condition is more likely to develop in:? women. ? Older people. ? People who have diabetes. ? People who have kidney stones or bladder stones. ? People who have other abnormalities of the kidney or ureter. ? People who have a catheter placed in the bladder. ? People who have cancer. ? People who are sexually active. ? Women who use spermicides. ? People who have had a prior urinary tract infection. What are the signs or symptoms? Symptoms of this condition include:? Frequent urination. ? Strong or persistent urge to urinate. ? Burning or stinging when urinating. ? Abdominal pain. ? Back pain. ? Pain in the side or flank area. ? Fever. ? Chills. ? Blood in the urine, or dark urine. ? Nausea. ? Vomiting. How is this diagnosed? This condition may be diagnosed based on:? Medical history and physical exam. ? Urine tests. ? Blood tests. You may also have imaging tests of the kidneys, such as an ultrasound or CT scan. How is this treated? Treatment for this condition may depend on the severity of the infection.? If the infection is mild and is found early, you may be treated with antibiotic medicines taken by mouth. You will need to drink fluids to remain hydrated. ? If the infection is more severe, you may need to stay in the hospital and receive antibiotics given directly into a vein through an IV tube. You may also need to receive fluids through an IV tube if you are not able to remain hydrated. After your hospital stay, you may need to take oral antibiotics for a period of time. Other treatments may be required, depending on the cause of the infection. Follow these instructions at home: Medicines? Take vuzs-oqx-qsrargk and prescription medicines only as told by your health care provider. ? If you were prescribed an antibiotic medicine, take it as told by your health care provider. Do not stop taking the antibiotic even if you start to feel better. General instructions? Drink enough fluid to keep your urine clear or pale yellow. ? Avoid caffeine, tea, and carbonated beverages. They tend to irritate the bladder. ? Urinate often. Avoid holding in urine for long periods of time. ? Urinate before and after sex. ? After a bowel movement, women should cleanse from front to back. Use each tissue only once. ? Keep all follow-up visits as told by your health care provider. This is important. Contact a health care provider if: ? Your symptoms do not get better after 2 days of treatment. ? Your symptoms get worse. ? You have a fever. Get help right away if: ? You are unable to take your antibiotics or fluids. ? You have shaking chills. ? You vomit. ? You have severe flank or back pain. ? You have extreme weakness or fainting. This information is not intended to replace advice given to you by your health care provider. Make sure you discuss any questions you have with your health care provider. Document Released: 08/01/2006 Document Revised: 01/06/2017 Document Reviewed: 11/24/2015 ? 2017 [employer] Fever, Adult A fever is an increase in the body?s temperature. It is usually defined as a temperature of 100?F (38?C) or higher. Brief mild or moderate fevers generally have no long-term effects, and they often do not require treatment. Moderate or high fevers may make you feel uncomfortable and can sometimes be a sign of a serious illness or disease. The sweating that may occur with repeated or prolonged fever may also cause dehydration. Fever is confirmed by taking a temperature with a thermometer. A measured temperature can vary with: ? Age. ? Time of day. ? Location of the thermometer: ? Mouth (oral). ? Rectum (rectal). ? Ear (tympanic). ? Underarm (axillary). ? Forehead (temporal). Follow these instructions at home: Pay attention to any changes in your symptoms. Take these actions to help with your condition: ? Take over-the counter and prescription medicines only as told by your health care provider. Follow the dosing instructions carefully. ? If you were prescribed an antibiotic medicine, take it as told by your health care provider. Do not stop taking the antibiotic even if you start to feel better. ? Rest as needed. ? Drink enough fluid to keep your urine clear or pale yellow. This helps to prevent dehydration. ? Sponge yourself or bathe with room-temperature water to help reduce your body temperature as needed. Do not use ice water. ? Do notoverbundle yourself in blankets or heavy clothes. Contact a health care provider if: ? You vomit. ? You cannot eat or drink without vomiting. ? You have diarrhea. ? You have pain when you urinate. ? Your symptoms do not improve with treatment. ? You develop new symptoms. ? You develop excessive weakness. Get help right away if: ? You have shortness of breath or have trouble breathing. ? You are dizzy or you faint. ? You are disoriented or confused. ? You develop signs of dehydration, such as a dry mouth, decreased urination, or paleness. ? You develop severe pain in your abdomen. ? You have persistent vomiting or diarrhea. ? You develop a skin rash. ? Your symptoms suddenly get worse. This information is not intended to replace advice given to you by your health care provider. Make sure you discuss any questions you have with your health care provider. Document Released: 01/25/2002 Document Revised: 01/06/2017 Document Reviewed: 09/25/2015 [employer] Patient Education ? 2017 [employer] Hematuria, Adult Hematuria is blood in your urine. It can be caused by a bladder infection, kidney infection, prostate infection, kidney stone, or cancer of your urinary tract. Infections can usually be treated with medicine, and a kidney stone usually will pass through your urine. If neither of these is the cause of your hematuria, further workup to find out the reason may be needed. It is very important that you tell your health care provider about any blood you see in your urine, even if the blood stops without treatment or happens without causing pain. Blood in your urine that happens and then stops and then happens again can be a symptom of a very serious condition. Also, pain is not a symptom in the initial stages of many urinary cancers. Follow these instructions at home: ? Drink lots of fluid, 3?4 quarts a day. If you have been diagnosed with an infection, cranberry juice is especially recommended, in addition to large amounts of water. ? Avoid caffeine, tea, and carbonated beverages because they tend to irritate the bladder. ? Avoid alcohol because it may irritate the prostate. ? Take all medicines as directed by your health care provider. ? If you were prescribed an antibiotic medicine, finish it all even if you start to feel better. ? If you have been diagnosed with a kidney stone, follow your health care provider's instructions regarding straining your urine to catch the stone. ? Empty your bladder often. Avoid holding urine for long periods of time. ? After a bowel movement, women should cleanse front to back. Use each tissue only once. ? Empty your bladder before and after sexual intercourse if you are a female. Contact a health care provider if: ? You develop back pain. ? You have a fever. ? You have a feeling of sickness in your stomach (nausea) or vomiting. ? Your symptoms are not better in 3 days. Return sooner if you are getting worse. Get help right away if: ? You develop severe vomiting and are unable to keep the medicine down. ? You develop severe back or abdominal pain despite taking your medicines. ? You begin passing a large amount of blood or clots in your urine. ? You feel extremely weak or faint, or you pass out. This information is not intended to replace advice given to you by your health care provider. Make sure you discuss any questions you have with your health care provider. Document Released: 08/01/2006 Document Revised: 01/06/2017 Document Reviewed: 04/01/2014 [employer] Patient Education ? 2017 [employer] Viruses or Bacteria What?s got you sick? Antibiotics only treat bacterial infections. Viral illnesses cannot be treated with antibiotics. When an antibiotic is not prescribed, ask your healthcare professional for tips on how to relieve symptoms and feel better. Usual Cause Illness Viruses Bacteria Antibiotic Needed Cold/Runny Nose NO Bronchitis/Chest Cold (in otherwise healthy children and adults) NO Whooping Cough Yes Flu NO Strep Throat Yes Sore Throat (except strep) NO Fluid in the middle ear (otitis media with effusion) NO Urinary Tract Infection Yes Antibiotics Aren?t Always the Answer www.cdc.gov/getsmart GET SMART Know When Antibiotics Work [place] Department of Health and Human Services Centers for Disease Control and Prevention April 2014 [facility] Influenza A&B Rapidon 2017 Influenza A Negative [facility] Comment on above: Performed By: #### 1 [id number] #### [facility] (DEFAULT) [address] [place] [address] Influenza B Negative [facility] Comment on above: Performed By: #### 1 [id number] #### [facility] (DEFAULT) [address] [place] [address] Internal QC OK? Pass [facility] Comment on above: Performed By: #### 1 [id number] #### [facility] (DEFAULT) [address] [place] [address] Test Urine 1on U Preg Negative [facility] Comment on above: Performed By: #### 3 [id number] #### [facility] (DEFAULT) [address] [place] [address] U Preg Internal Control Pass [facility] Comment on above: Performed By: #### 3 [id number] #### [facility] (DEFAULT) [address] [place] [address] UA Cclxk0hy 11-15-2017 RBC #/vol (U) 5-10 [facility] Comment on above: Order Comment: Urina lysis Microscopic order added on by [employer] Rules system. Performed By: #### 5 [id number] #### [facility] (DEFAULT) [address] [place] [address] UA Bacteria 2+ [facility] Comment on above: Order Comment: Urina lysis Microscopic order added on by [employer] Rules system. Performed By: #### 5 [id number], [id number] #### [facility] (DEFAULT) [address] [place] [address] UA Squam Epi Many [facility] Comment on above: Order Comment: Urina lysis Microscopic order added on by [employer] Rules system. Performed By: #### 5 [id number] #### [facility] (DEFAULT) [address] [place] [address] UA WBC 10-15 [facility] Comment on above: Order Comment: Urina lysis Microscopic order added on by [employer] Rules system. Performed By: #### 5 [id number] #### [facility] (DEFAULT) [address] [place] [address] UA w Culture if Ind Standard on 11-15-2017 Culture? Yes [facility] Comment on above: Performed By: #### 5 [id number], [id number] #### [facility] (DEFAULT) [address] [place] [address] Urine Source Clean Catch [facility] Comment on above: Performed By: #### 5 [id number], [id number] #### [facility] (DEFAULT) [address] [place] [address] Breakpoint UA [facility] Comment on above: Performed By: #### 5 [id number], [id number] #### [facility] (DEFAULT) [address] [place] [address] Color Nom (U) YELLOW Comment on above: Performed By: #### 5 [id number], [id number] #### [facility] (DEFAULT) [address] [place] [address] Glucose mass conc (U) Negative Comment on above: Performed By: #### 5 [id number], [id number] #### [facility] (DEFAULT) [address] [place] [id number] Ketones Ql (U) TRACE Comment on above: Performed By: #### 5 [id number], [id number] #### [facility] (DEFAULT) [address] [place] [id number] Micro? Indicated Comment on above: Performed By: #### 5 [id number], [id number] #### [facility] (DEFAULT) [address] [place] [id number] UA Bilirubin SMALL Abnormal Comment on above: Performed By: #### 5 [id number], [id number] #### [facility] (DEFAULT) [address] [place] [address] UA Blood TRACE Abnormal NEGATIVE Comment on above: Performed By: #### 5 [id number], [id number] #### [facility] (DEFAULT) [address] [place] [address] UA Clarity CLOUDY Abnormal CLEAR Comment on above: Performed By: #### 5 [id number], [id number] #### [facility] (DEFAULT) [address] [place] [id number] UA Leuk Est TRACE Abnormal NEGATIVE Comment on above: Performed By: #### 5 [id number], [id number] #### [facility] (DEFAULT) [address] [place] [address] UA Nitrite Negative Normal NEGATIVE Comment on above: Performed By: #### 5 [id number], [id number] #### [facility] (DEFAULT) [address] [place] [address] UA pH 6.5 5-8 Comment on above: Performed By: #### 5 [id number], [id number] #### [facility] (DEFAULT) [address] [place] [address] UA Protein 30 mg/dL Abnormal NEGATIVE Comment on above: Performed By: #### 5 [id number], [id number] #### [facility] (DEFAULT) [address] [place] [id number] UA Spec Grav 1.020 1.001-1.035 Comment on above: Performed By: #### 5 [id number], [id number] #### [facility] (DEFAULT) [address] [place] [address] UA Urobilinogen 0.2 mg/dL Normal 0.2-1.0 Comment on above: Performed By: #### 5 [id number], [id number] #### [facility] (DEFAULT) [address] [place] [address] Vital Signs Date Time Vital Sign Value Performing Clinician Faci lity 04-17-2024 11:37-0400 Body height 165.1 cm Betina Pop [employer] Work Phone: [facility] 04-17-2024 11:37-0400 Body mass index (BMI) [Ratio] 32.35 kg/m2 Betina Ppo [employer] Work Phone: [facility] 04-17-2024 11:37-0400 Body weight 88.18 kg Betina Pop [employer] Work Phone: [facility] Comment on above: per pt 04-17-2024 11:37-0400 Diastolic blood pressure 72 mm[Hg] Betina Pop [employer] Work Phone: [facility] 04-17-2024 11:37-0400 Systolic blood pressure 100 mm[Hg] Betina Pop [employer] Work Phone: [facility] 01-18-2024 07:40-0400 Body height 165.1 cm Betina Pop [employer] Work Phone: [facility] 01-18-2024 07:40-0400 Body mass index (BMI) [Ratio] 27.82 kg/m2 Betina Raad [employer] Work Phone: [facility] 01-18-2024 07:40-0400 Body weight 75.84 kg Betina Pop [employer] Work Phone: [facility] 01-18-2024 07:40-0400 Diastolic blood pressure 69 mm[Hg] Betina Pop [employer] Work Phone: [facility] 01-18-2024 07:40-0400 Heart rate 97 /min Betina Pop [employer] Work Phone: [facility] 01-18-2024 07:40-0400 SaO2% (BldA) [Mass fraction] 99 % Betina Pop [employer] Work Phone: [facility] 01-18-2024 07:40-0400 Systolic blood pressure 101 mm[Hg] Betina Pop [employer] Work Phone: [facility] 11-03-2023 07:57-0400 Body height 165.1 cm Betina Pop [employer] Work Phone: [facility] 11-03-2023 07:57-0400 Body mass index (BMI) [Ratio] 27.29 kg/m2 Betina Pop [employer] Work Phone: [facility] 11-03-2023 07:57-0400 Body weight 74.39 kg Betina Pop [employer] Work Phone: [facility] Comment on above: per pt 11-03-2023 07:57-0400 Diastolic blood pressure 70 mm[Hg] Betina Pop [employer] Work Phone: [facility] Comment on above: per pt 11-03-2023 07:57-0400 Systolic blood pressure 110 mm[Hg] Betina Pop [employer] Work Phone: [facility] Comment on above: per pt 09-01-2023 09:00-0500 Body height 165.1 cm Betina Pop [employer] Work Phone: [facility] 09-01-2023 09:00-0500 Body mass index (BMI) [Ratio] 28.29 kg/m2 Betina Pop [employer] Work Phone: [facility] 09-01-2023 09:00-0500 Body weight 77.11 kg Betina Pop [employer] Work Phone: [facility] Comment on above: Patient Reported 09-01-2023 09:00-0500 Diastolic blood pressure 60 mm[Hg] Betina Pop [employer] Work Phone: [facility] Comment on above: Patient Reported 09-01-2023 09:00-0500 Systolic blood pressure 100 mm[Hg] Betina Pop [employer] Work Phone: [facility] Comment on above: Patient Reported 07-13-2023 08:12-0500 Body height 165.1 cm Betina Pop [employer] Work Phone: [facility] 07-13-2023 08:12-0500 Body mass index (BMI) [Ratio] 28.86 kg/m2 Betina Pop [employer] Work Phone: [facility] 07-13-2023 08:12-0500 Body weight 78.65 kg Betina Pop [employer] Work Phone: [facility] 07-13-2023 08:12-0500 Diastolic blood pressure 74 mm[Hg] Betina Pop [employer] Work Phone: [facility] 07-13-2023 08:12-0500 Heart rate 101 /min Betina Pop [employer] Work Phone: [facility] 07-13-2023 08:12-0500 SaO2% (BldA) [Mass fraction] 98 % Betina Pop [employer] Work Phone: [facility] 07-13-2023 08:12-0500 Systolic blood pressure 108 mm[Hg] Betina Pop [employer] Work Phone: [facility] 05-09-2023 08:04-0400 Body height 165.1 cm Betina Pop [employer] Work Phone: [facility] 05-09-2023 08:04-0400 Body mass index (BMI) [Ratio] 29.19 kg/m2 Betina Pop [employer] Work Phone: [facility] 05-09-2023 08:04-0400 Body weight 79.56 kg Betina Pop [employer] Work Phone: [facility] Comment on above: Patient Reported 05-09-2023 08:04-0400 Diastolic blood pressure 72 mm[Hg] Betina Pop [employer] Work Phone: [facility] Comment on above: Patient Reported 05-09-2023 08:04-0400 Systolic blood pressure 118 mm[Hg] Betina Pop [employer] Work Phone: [facility] Comment on above: Patient Reported 12-10-2022 08:03-0400 Body height 165.1 cm Betina Pop [employer] Work Phone: [facility] 12-10-2022 08:03-0400 Body mass index (BMI) [Ratio] 34.53 kg/m2 Betina Pop [employer] Work Phone: [facility] 12-10-2022 08:03-0400 Body weight 94.12 kg Betina Pop [employer] Work Phone: [facility] Comment on above: per pt 10-27-2022 08:58-0400 Body height 165.1 cm Betina Pop [employer] Work Phone: [facility] 10-27-2022 08:58-0400 Body mass index (BMI) [Ratio] 36.48 kg/m2 Betina Pop [employer] Work Phone: [facility] 10-27-2022 08:58-0400 Body weight 99.43 kg Betina Pop [employer] Work Phone: [facility] Comment on above: Patient Reportede 10-27-2022 08:58-0400 Diastolic blood pressure 72 mm[Hg] Betina Pop [employer] Work Phone: [facility] Comment on above: Patient Reported 10-27-2022 08:58-0400 Systolic blood pressure 118 mm[Hg] Betina Pop [employer] Work Phone: [facility] Comment on above: Patient Reported 09-08-2022 09:01-0500 Body height 165.1 cm Betina Pop [employer] Work Phone: [facility] 09-08-2022 09:01-0500 Body mass index (BMI) [Ratio] 38.77 kg/m2 Betina Pop [employer] Work Phone: [facility] 09-08-2022 09:01-0500 Body weight 105.69 kg Betina Pop [employer] Work Phone: [facility] Comment on above: PATIENT REPORTED 07-27-2022 08:09-0500 Body height 165.1 cm Betina Pop CNP Work Phone: [facility] 07-27-2022 08:09-0500 Body mass index (BMI) [Ratio] 40.87 kg/m2 Betina Pop [employer] Work Phone: [facility] 07-27-2022 08:09-0500 Body weight 111.4 kg Betina Pop [employer] Work Phone: [facility] 07-27-2022 08:09-0500 Diastolic blood pressure 81 mm[Hg] Betina Pop [employer] Work Phone: [facility] 07-27-2022 08:09-0500 Heart rate 72 /min Betina Pop [employer] Work Phone: [facility] 07-27-2022 08:09-0500 SaO2% (BldA) [Mass fraction] 95 % Betina Pop [employer] Work Phone: [facility] 07-27-2022 08:09-0500 Systolic blood pressure 112 mm[Hg] Betina Pop [employer] Work Phone: [facility] 06-17-2022 08:22-0400 Body height 165.1 cm Betina Pop [employer] Work Phone: [facility] 06-17-2022 08:22-0400 Body mass index (BMI) [Ratio] 42.6 kg/m2 Betina Pop [employer] Work Phone: [facility] 06-17-2022 08:22-0400 Body weight 116.12 kg Betina Pop [employer] Work Phone: [facility] Comment on above: pt. reported 05-17-2022 10:19-0400 Body height 165.1 cm Betina Pop [employer] Work Phone: [facility] 05-17-2022 10:19-0400 Body mass index (BMI) [Ratio] 44.26 kg/m2 Betina Pop [employer] Work Phone: [facility] 05-17-2022 10:19-0400 Body weight 120.66 kg Betina Pop [employer] Work Phone: [facility] Comment on above: pt. reported 04-15-2022 09:42-0400 Body height 165.1 cm Betina Pop [employer] Work Phone: [facility] 04-15-2022 09:42-0400 Body mass index (BMI) [Ratio] 45 kg/m2 Betina Pop [employer] Work Phone: [facility] 04-15-2022 09:42-0400 Body weight 122.65 kg Betina Pop [employer] Work Phone: [facility] 04-15-2022 09:42-0400 Diastolic blood pressure 92 mm[Hg] Betina Pop [employer] Work Phone: [facility] 04-15-2022 09:42-0400 Heart rate 98 /min Betina Pop [employer] Work Phone: [facility] 04-15-2022 09:42-0400 SaO2% (BldA) [Mass fraction] 98 % Betina Pop [employer] Work Phone: [facility] 04-15-2022 09:42-0400 Systolic blood pressure 119 mm[Hg] Betina Pop [employer] Work Phone: [facility] 03-15-2022 09:08-0400 Body height 165.1 cm Betina Pop [employer] Work Phone: [facility] 03-15-2022 09:08-0400 Body mass index (BMI) [Ratio] 45.85 kg/m2 Betina Pop [employer] Work Phone: [facility] 03-15-2022 09:08-0400 Body weight 124.97 kg Betina Ppo [employer] Work Phone: [facility] 03-15-2022 09:08-0400 Diastolic blood pressure 78 mm[Hg] Betina Pop [employer] Work Phone: [facility] 03-15-2022 09:08-0400 Heart rate 96 /min Betina Pop [employer] Work Phone: [facility] 03-15-2022 09:08-0400 SaO2% (BldA) [Mass fraction] 97 % Betina Pop [employer] Work Phone: [facility] 03-15-2022 09:08-0400 Systolic blood pressure 112 mm[Hg] Betina Pop [employer] Work Phone: [facility] 02-11-2022 09:58-0400 Body height 165.1 cm Betina Pop [employer] Work Phone: [facility] 02-11-2022 09:58-0400 Body mass index (BMI) [Ratio] 48.38 kg/m2 Betina Pop [employer] Work Phone: [facility] 02-11-2022 09:58-0400 Body weight 131.86 kg Betina Pop [employer] Work Phone: [facility] 02-11-2022 09:58-0400 Diastolic blood pressure 81 mm[Hg] Betina Pop [employer] Work Phone: [facility] 02-11-2022 09:58-0400 Heart rate 105 /min Betina Pop [employer] Work Phone: [facility] 02-11-2022 09:58-0400 SaO2% (BldA) [Mass fraction] 98 % Betina Pop [employer] Work Phone: [facility] 02-11-2022 09:58-0400 Systolic blood pressure 122 mm[Hg] Betina Pop [employer] Work Phone: [facility] 01-06-2022 12:26-0400 Body height 165.1 cm Betina Pop [employer] Work Phone: [facility] 01-06-2022 12:26-0400 Body mass index (BMI) [Ratio] 50.07 kg/m2 Betina Pop [employer] Work Phone: [facility] 01-06-2022 12:26-0400 Body temperature 55.4 [degF] Betina Pop [employer] Work Phone: [facility] 01-06-2022 12:26-0400 Body weight 136.49 kg Betina Pop [employer] Work Phone: [facility] 01-06-2022 12:26-0400 Diastolic blood pressure 86 mm[Hg] Betina Pop [employer] Work Phone: [facility] 01-06-2022 12:26-0400 Heart rate 85 /min Betina Pop [employer] Work Phone: [facility] 01-06-2022 12:26-0400 SaO2% (BldA) [Mass fraction] 99 % Betina Pop [employer] Work Phone: [facility] 01-06-2022 12:26-0400 Systolic blood pressure 122 mm[Hg] Betina Pop [employer] Work Phone: [facility] 11-30-2021 12:15-0400 Body height 165.1 cm Lamberto Russo MD Work Phone: [facility] 11-30-2021 12:15-0400 Body mass index (BMI) [Ratio] 51.05 kg/m2 Lamberto Russo MD Work Phone: [facility] 11-30-2021 12:15-0400 Body weight 139.16 kg Lamberto Russo MD Work Phone: [facility] Comment on above: per pt 10-23-2021 09:19-0500 Body height 165.1 cm Lamberto Russo MD Work Phone: [facility] 10-23-2021 09:19-0500 Body mass index (BMI) [Ratio] 50.06 kg/m2 Lamberto Russo MD Work Phone: [facility] 10-23-2021 09:19-0500 Body weight 136.44 kg Lamberto Russo MD Work Phone: [facility] Comment on above: pt. reported 09-09-2021 09:51-0500 Body height 165.1 cm Lamberto Russo MD Work Phone: [facility] 09-09-2021 09:51-0500 Body mass index (BMI) [Ratio] 50.12 kg/m2 Lamberto Russo MD Work Phone: [facility] 09-09-2021 09:51-0500 Body weight 136.62 kg Lamberto Russo MD Work Phone: [facility] Comment on above: per pt 08-28-2021 09:17-0500 Body height 165.1 cm Evi Pacheco MD Work Phone: [facility] 08-28-2021 09:17-0500 Body mass index (BMI) [Ratio] 49.97 kg/m2 Evi Pacheco MD Work Phone: [facility] 08-28-2021 09:17-0500 Body temperature 97.81 [degF] Evi Pacheco MD Work Phone: [facility] 08-28-2021 09:17-0500 Body weight 136.22 kg Evi Pacheco MD Work Phone: [facility] 08-28-2021 09:17-0500 Diastolic blood pressure 84 mm[Hg] Evi Pacheco MD Work Phone: [facility] 08-28-2021 09:17-0500 Heart rate 82 /min Evi Pacheco MD Work Phone: [facility] 08-28-2021 09:17-0500 Respiratory rate 16 /min Evi Pacheco MD Work Phone: [facility] 08-28-2021 09:17-0500 SaO2% (BldA) [Mass fraction] 98 % Evi Pacheco MD Work Phone: [facility] 08-28-2021 09:17-0500 Systolic blood pressure 123 mm[Hg] Evi Pacheco MD Work Phone: [facility] 07-31-2021 08:03-0500 Body height 167.6 cm Lamberto Russo MD Work Phone: [facility] 07-31-2021 08:03-0500 Body mass index (BMI) [Ratio] 47.61 kg/m2 Lamberto Russo MD Work Phone: [facility] 07-31-2021 08:03-0500 Body weight 133.72 kg Lamberto Russo MD Work Phone: [facility] Comment on above: pt. reported 07-03-2021 09:05-0500 Body height 167.6 cm Lamberto Russo MD Work Phone: [facility] 07-03-2021 09:05-0500 Body mass index (BMI) [Ratio] 47.61 kg/m2 Lamberto Russo MD Work Phone: [facility] 07-03-2021 09:05-0500 Body weight 133.81 kg Lamberto Russo MD Work Phone: [facility] Comment on above: per pt 06-02-2021 11:19-0400 Body height 167.6 cm Lamberto Russo MD Work Phone: [facility] 06-02-2021 11:19-0400 Body mass index (BMI) [Ratio] 46.55 kg/m2 Lamberto Russo MD Work Phone: [facility] 06-02-2021 11:19-0400 Body weight 130.82 kg Lamberto Russo MD Work Phone: [facility] Comment on above: per pt 04-28-2021 20:27-0400 Body height 167.6 cm Lamberto Russo MD Work Phone: [facility] 04-28-2021 20:27-0400 Body mass index (BMI) [Ratio] 47.94 kg/m2 Lamberto Russo MD Work Phone: [facility] 04-28-2021 20:27-0400 Body weight 134.72 kg Lamberto Russo MD Work Phone: [facility] Comment on above: last recorded weight 04-14-2021 15:36-0400 Body height 167.[address] [facility] 04-14-2021 15:36-0400 Body mass index (BMI) [Ratio] 47.97 kg/m2 Alem Barnett RD [facility] 04-14-2021 15:36-0400 Body weight 134.[address] [facility] 04-14-2021 13:46-0400 Body height 167.6 cm Lamberto Russo MD Work Phone: [facility] 04-14-2021 13:46-0400 Body mass index (BMI) [Ratio] 47.97 kg/m2 Lamberto Russo MD Work Phone: [facility] 04-14-2021 13:46-0400 Body weight 134.81 kg Lamberto Russo MD Work Phone: [facility] 04-14-2021 13:46-0400 Diastolic blood pressure 77 mm[Hg] Lamberto Russo MD Work Phone: [facility] 04-14-2021 13:46-0400 Heart rate 88 /min Lamberto Russo MD Work Phone: [facility] 04-14-2021 13:46-0400 SaO2% (BldA) [Mass fraction] 98 % Lamberto Russo MD Work Phone: [facility] 04-14-2021 13:46-0400 Systolic blood pressure 112 mm[Hg] Lamberto Russo MD Work Phone: [facility] 03-24-2021 14:49-0400 Body height 165.1 cm Alejandra Ying MD Work Phone: [facility] 03-24-2021 14:49-0400 Body mass index (BMI) [Ratio] 43.6 kg/m2 Alejandra Ying MD Work Phone: [facility] 03-24-2021 14:49-0400 Body weight 118.84 kg Alejandra Ying MD Work Phone: [facility] 03-24-2021 14:49-0400 Diastolic blood pressure 84 mm[Hg] Alejandra Ying MD Work Phone: [facility] 03-24-2021 14:49-0400 Heart rate 101 /min Alejandra Ying MD Work Phone: [facility] 03-24-2021 14:49-0400 Systolic blood pressure 125 mm[Hg] Alejandra Ying MD Work Phone: [facility] 11-12-2020 09:58-0400 BMI (Body Mass Index) 42.47 kg/m2 Evi [facility]ache[facility] 11-12-2020 09:58-0400 Body Temperature 97.9 [degF] Evi Pacheco [facility] 11-12-2020 09:58-0400 Body weight 119.34 kg Evi Pacheco [facility] 11-12-2020 09:58-0400 BP Diastolic 80 mm[Hg] Evi [facility] 11-12-2020 09:58-0400 BP Systolic 116 mm[Hg] Evi [facility] 11-12-2020 09:58-0400 Height 167.6 cm Evi [facility] 11-12-2020 09:58-0400 Pulse (Heart Rate) 96 /min Evi [facility] 11-12-2020 09:58-0400 Pulse Oximetry 97 % Evi [facility] 11-12-2020 09:58-0400 Respiratory Rate 18 /min Evi [facility] 08-29-2020 07:43-0500 BMI (Body Mass Index) 40.46 kg/m2 Christa Guill[facility] 08-29-2020 07:43-0500 Body Temperature 97 [degF] Christa [facility] 08-29-2020 07:43-0500 Body weight 113.72 kg Christ[facility] 08-29-2020 07:43-0500 BP Diastolic 75 mm[Hg] [facility]2020 07:43-0500 BP Systolic 108 mm[Hg] [facility]-29-2020 07:43-0500 Height 167.6 cm [facility] 08-29-2020 07:43-0500 Pulse (Heart Rate) 98 /min [facility] 08-29-2020 07:43-0500 Pulse Oximetry 98 % [facility] 08-29-2020 07:43-0500 Respiratory Rate 17 /min Christa [facility] 08-04-2020 15:01-0500 BP Diastolic 83 mm[Hg] Evi [facility] 08-04-2020 15:01-0500 BP Systolic 138 mm[Hg] [facility] 08-04-2020 14:56-0500 BMI (Body Mass Index) 37.61 kg/m2 Evi [facility] 08-04-2020 14:56-0500 [facility]01 [facility]degF[facility] 14:56-0500 Body weight 105.69 kg Evi [facility] 08-04-2020 14:56-0500 [facility] 14:56-0500 Pulse (Heart Rate) 117 /min [facility] 08-04-2020 14:56-0500 [facility] 99 [facility] 14:56-0500 Respiratory Rate 18 /min [facility] 07-29-2020 07:05-0500 BMI (Body Mass Index) 37.9 kg/m2 [facility] 07-29-2020 07:05-0500 Body Temperature 98.71 [degF] [facility] 07-29-2020 07:05-0500 Body weight 106.5 kg [facility] 07-29-2020 07:05-0500 BP Diastolic 86 mm[Hg] [facility] 07-29-2020 07:05-0500 BP Systolic 122 mm[Hg] [facility] 07-29-2020 07:05-0500 Height 167.6 cm [facility] 07-29-2020 07:05-0500 Pulse (Heart Rate) 110 /min [facility] 07-29-2020 07:05-0500 Pulse Oximetry 98 % [facility] 07-29-2020 07:05-0500 Respiratory Rate 18 /min [facility] 07-01-2020 07:02-0500 BMI (Body Mass Index) 38.24 kg/m2 [facility] 07-01-2020 07:02-0500 Body Temperature 97.2 [degF] [facility] 07-01-2020 07:02-0500 Body weight 107.46 kg [facility] 07-01-2020 07:02-0500 BP Diastolic 85 mm[Hg] [facility] 07-01-2020 07:02-0500 BP Systolic 121 mm[Hg] [facility] 07-01-2020 07:02-0500 Height 167.6 cm [facility] 07-01-2020 07:02-0500 Pulse (Heart Rate) 98 /min [facility] 07-01-2020 07:02-0500 Pulse Oximetry 99 % [facility]2020 07:02-0500 Respiratory Rate 18 /min [facility] 05-06-2020 07:27-0400 BMI (Body Mass Index) 41.2 kg/m2 [facility] 05-06-2020 07:27-0400 Body Temperature 97.39 [degF] [facility]-06-2020 07:27-0400 Body weight 112.31 kg [facility] 05-06-2020 07:27-0400 BP Diastolic 82 mm[Hg] [facility] 05-06-2020 07:27-0400 BP Systolic 118 mm[Hg] [facility] 05-06-2020 07:27-0400 Height 165.1 cm [facility] 05-06-2020 07:27-0400 Pulse (Heart Rate) 102 /min [facility] 05-06-2020 07:27-0400 Pulse Oximetry 97 % [facility] 05-06-2020 07:27-0400 Respiratory Rate 17 /min [facility] 04-23-2020 10:54-0400 BMI (Body Mass Index) 41.49 kg/m2 [facility] 04-23-2020 10:54-0400 Body [facility] 97.11 [degF] [facility] 10:54-0400 Body weight 113.08 kg [facility] 04-23-2020 10:54-0400 BP Diastolic 68 mm[Hg] [facility] 04-23-2020 10:54-0400 BP Systolic 104 mm[Hg] [facility] 04-23-2020 10:54-0400 Height 165.1 cm [facility] 04-23-2020 10:54-0400 Pulse (Heart Rate) 105 /min [facility] 04-23-2020 10:54-0400 Pulse Oximetry 97 % Evi [facility] 04-23-2020 10:54-0400 Respiratory Rate 18 /min Evi [facility] 03-07-2020 16:02-0400 BMI (Body Mass Index) 42.98 kg/m2 Christa [facility] 03-07-2020 16:02-0400 Body Temperature 98.2 [degF] Christa [facility] 03-07-2020 16:02-0400 Body weight 120.79 kg [facility]-07-2020 16:02-0400 BP Diastolic 70 mm[Hg] [facility]-07-2020 16:02-0400 BP Systolic 115 mm[Hg] [facility]-07-2020 16:02-0400 Height 167.6 cm [facility] 03-07-2020 16:02-0400 Pulse (Heart Rate) 105 /min [facility] 03-07-2020 16:02-0400 Pulse Oximetry 99 % [facility]-07-2020 16:02-0400 Respiratory Rate 18 /min [facility]-08-2020 10:26-0400 BMI (Body Mass Index) 43 kg/m2 [facility]-08-2020 10:26-0400 Body Temperature 97.5 [degF] [facility]-08-2020 10:26-0400 Body weight 120.84 kg [facility]-08-2020 10:26-0400 BP Diastolic 72 mm[Hg] [facility]-08-2020 10:26-0400 BP Systolic 108 mm[Hg] [facility]-08-2020 10:26-0400 Height 167.6 cm [facility] 02-08-2020 10:26-0400 Pulse (Heart Rate) 93 /min [facility] 02-08-2020 10:26-0400 Pulse Oximetry 97 % [facility]-08-2020 10:26-0400 Respiratory Rate 16 /min [facility] 11-16-2019 10:34-0400 BMI (Body Mass Index) 44.18 kg/m2 [facility] 10:34-0400 Body Temperature 98.4 [degF] [facility] 11-16-2019 10:34-0400 Body weight 124.15 kg [facility] 11-16-2019 10:34-0400 BP Diastolic 88 mm[Hg] [facility] 11-16-2019 10:34-0400 BP Systolic 127 mm[Hg] [facility] 11-16-2019 10:34-0400 Height 167.6 cm [facility] 11-16-2019 10:34-0400 Pulse (Heart Rate) 113 /min [facility] 11-16-2019 10:34-0400 Pulse Oximetry 96 % [facility] 11-16-2019 10:34-0400 Respiratory Rate 16 /min [facility] 08-24-2019 08:24-0500 BMI (Body Mass Index) 43.26 kg/m2 [facility] 08-24-2019 08:24-0500 Body Temperature 98.01 [degF] [facility] 08-24-2019 08:24-0500 Body weight 121.56 kg [facility] 08-24-2019 08:24-0500 BP Diastolic 78 mm[Hg] [facility] 08-24-2019 08:24-0500 BP Systolic 116 mm[Hg] [facility] 08-24-2019 08:24-0500 Height 167.6 cm [facility] 08-24-2019 08:24-0500 Pulse (Heart Rate) 102 /min [facility] 08-24-2019 08:24-0500 Pulse Oximetry 95 % [facility] 08-24-2019 08:24-0500 Respiratory Rate 18 /min [facility] 04-10-2019 11:16-0400 BMI (Body Mass Index) 39.48 kg/m2 [facility] 04-10-2019 11:16-0400 Body Temperature 98.6 [degF] [facility] 04-10-2019 11:16-0400 Body weight 110.95 kg [facility] 04-10-2019 11:16-0400 BP Diastolic 72 mm[Hg] [facility] 04-10-2019 11:16-0400 BP Systolic 103 mm[Hg] [facility] 04-10-2019 11:16-0400 Height 167.6 cm [facility] 04-10-2019 11:16-0400 Pulse (Heart Rate) 89 /min [facility] 04-10-2019 11:16-0400 Pulse Oximetry 97 % [facility] 04-10-2019 11:16-0400 Respiratory Rate 18 /min [facility] 01-17-2019 14:38-0400 BMI (Body Mass Index) 41.62 kg/m2 [facility] 01-17-2019 14:38-0400 Body Temperature 98.2 [degF] [facility] 01-17-2019 14:38-0400 Body weight 115.21 kg Emilichuy [facility] 01-17-2019 14:38-0400 BP Diastolic 80 mm[Hg] Emili [facility] 01-17-2019 14:38-0400 BP Systolic 121 mm[Hg] [facility] 01-17-2019 14:38-0400 Height 166.4 cm [facility] 01-17-2019 14:38-0400 Pulse (Heart Rate) 98 /min [facility] 01-17-2019 14:38-0400 Pulse Oximetry 97 % [facility] 01-17-2019 14:38-0400 [facility] Rate 16 /[facility] Date Encounter Type Care Provider Facility Start: 05-16-2024 End: 05-16-2024 ambulatory [facility] Start: 04-17-2024 End: 04-17-2024 Office outpatient visit 25 minutes Betina Pop [employer] Work Phone: [facility] Comment on above: Atypical eating diso rder (Primary Dx); Insulin resistance; Obesity, Class I, BMI 30-34.9; BMI 32.0-32.9,adult; Vitamin D deficiency; Vitamin B6 deficiency; Iron deficiency; Hypothyroidism (acquired); Constipation, unspecified constipation type Start: 04-17-2024 End: 04-17-2024 ambulatory [facility] Start: 03-13-2024 End: 03-13-2024 Orders Only Betina Pop [employer] Work Phone: [facility] Comment on above: Insulin resistance ( Primary Dx) Start: 03-06-2024 End: 03-06-2024 Refill Trinity L Lizzy DIA [facility] Comment on above: Insulin resistance Start: 01-18-2024 End: 01-18-2024 ambulatory [facility] Start: 01-18-2024 End: 01-18-2024 Office outpatient visit 25 minutes Betina Pop [employer] Work Phone: [facility] Comment on above: Atypical eating diso rder (Primary Dx); Insulin resistance; Overweight (BMI 25.0-29.9); BMI 27.0-27.9,adult; Vitamin D deficiency; Vitamin B6 deficiency; Iron deficiency Start: 12-16-2023 End: 12-17-2023 ambulatory [facility] Start: 12-16-2023 Encounter for other preprocedural examination [facility] Start: 11-25-2023 ambulatory [facility] Start: 11-18-2023 Refill Trinity L Lzizy DIA [facility] Comment on above: Insulin resistance Start: 11-03-2023 End: 11-03-2023 Office outpatient visit 25 minutes Betina Pop [employer] Work Phone: [facility] Comment on above: Atypical eating diso rder (Primary Dx); Insulin resistance; Overweight (BMI 25.0-29.9); BMI 27.0-27.9,adult; Vitamin D deficiency; Vitamin B6 deficiency; Iron deficiency; Hypothyroidism (acquired); Depression, unspecified depression type Start: 11-03-2023 End: 11-03-2023 ambulatory [facility] Start: 09-01-2023 End: 09-01-2023 Office outpatient visit 25 minutes Betina Pop [employer] Work Phone: [facility] Comment on above: Atypical eating diso rder (Primary Dx); Insulin resistance; Overweight (BMI 25.0-29.9); BMI 28.0-28.9,adult; Vitamin D deficiency; Vitamin B6 deficiency; Iron deficiency; Hypothyroidism (acquired) Start: 09-01-2023 End: 09-01-2023 ambulatory [facility] Start: 07-15-2023 ambulatory LAMBERTO RUSSO [facility] Start: 07-14-2023 Orders Only Betina Pop CNP Work Phone: [facility] Comment on above: Insulin resistance; Vitamin D deficiency Start: 07-13-2023 End: 07-13-2023 ambulatory CRISELDA VIVEROS Not Available Start: 07-13-2023 End: 07-17-2023 ambulatory [facility] Start: 07-13-2023 End: 07-17-2023 ambulatory BETINA POP [facility] Start: 07-13-2023 End: 07-13-2023 Office outpatient visit 25 minutes Betina Pop CNP Work Phone: [facility] Comment on above: Atypical eating diso rder (Primary Dx); Insulin resistance; Overweight (BMI 25.0-29.9); BMI 28.0-28.9,adult; Vitamin D deficiency; Vitamin B6 deficiency; Iron deficiency; Hypothyroidism (acquired); Depression, unspecified depression type; Fatigue, unspecified type Start: 05-09-2023 End: 05-09-2023 Office outpatient visit 25 minutes Betina Pop CNP Work Phone: [facility] Comment on above: Atypical eating diso rder (Primary Dx); Insulin resistance; Overweight (BMI 25.0-29.9); BMI 29.0-29.9,adult; Vitamin D deficiency; Vitamin B6 deficiency; Iron deficiency; Depression, unspecified depression type; Hypothyroidism (acquired) Start: 04-07-2023 Refill Betina Pop CNP Work Phone: [facility] Start: 02-16-2023 Orders Only Betina Pop CNP Work Phone: [facility] Start: 01-29-2023 ambulatory LAMBERTO ALCANTAR [facility] Start: 01-27-2023 Orders Only Betina Pop CNP Work Phone: [facility] Comment on above: Vitamin D deficiency Hypothyroidism (acqu ired) (Primary Dx) Start: 01-21-2023 End: 01-25-2023 ambulatory [facility] Start: 01-11-2023 Refill Lamberto Campbell MD Work Phone: [facility] Start: 12-10-2022 ambulatory LAMBERTO RUSSO [facility] Start: 12-10-2022 End: 12-10-2022 Office outpatient visit 25 minutes Betina Pop [employer] Work Phone: [facility] Comment on above: Atypical eating diso rder (Primary Dx); Insulin resistance; Obesity, Class I, BMI 30-34.9; BMI 34.0-34.9,adult; Depression, unspecified depression type; Vitamin D deficiency; Vitamin B6 deficiency; Iron deficiency; Hypothyroidism (acquired) Start: 10-30-2022 Orders Only Betina Pop CNP Work Phone: [facility] Start: 10-29-2022 ambulatory [facility] Start: 10-27-2022 End: 10-27-2022 Office outpatient visit 25 minutes Betina Pop [employer] Work Phone: [facility] Comment on above: Atypical eating diso rder (Primary Dx); Insulin resistance; Obesity, Class II, BMI 35-39.9; BMI 36.0-36.9,adult; Depression, unspecified depression type; Vitamin D deficiency; Vitamin B6 deficiency; Iron deficiency; Hypothyroidism (acquired) Start: 09-14-2022 Refill Betina Pop CNP Work Phone: [facility] Start: 09-08-2022 End: 09-08-2022 Office outpatient visit 25 minutes Betina Pop [employer] Work Phone: [facility] Comment on above: Atypical eating diso rder (Primary Dx); Insulin resistance; Obesity, Class II, BMI 35-39.9; BMI 38.0-38.9,adult; Vitamin D deficiency; Vitamin B6 deficiency; Iron deficiency; Hypothyroidism (acquired) Start: 07-27-2022 End: 07-27-2022 Office outpatient visit 25 minutes Betina Pop CNP Work Phone: [facility] Comment on above: Atypical eating diso rder (Primary Dx); Insulin resistance; Obesity, Class III, BMI 40-49.9 (morbid obesity) (HCC); BMI 40.0-44.9, adult (HCC); Vitamin D deficiency; Vitamin B6 deficiency; Iron deficiency; Hypothyroidism (acquired) Start: 07-12-2022 Orders Only Betina Pop CNP Work Phone: [facility] Comment on above: Hypothyroidism (acqu ired) (Primary Dx) Start: 06-17-2022 End: 06-17-2022 Office outpatient visit 25 minutes Betina Pop [employer] Work Phone: [facility] Comment on above: Atypical eating diso rder (Primary Dx); Insulin resistance; Obesity, Class III, BMI 40-49.9 (morbid obesity) (HCC); BMI 40.0-44.9, adult (HCC); Vitamin D deficiency; Vitamin B6 deficiency; Iron deficiency; Hypothyroidism (acquired); Metabolic syndrome Start: 05-23-2022 Refill Betina Pop CNP Work Phone: [facility] Start: 05-19-2022 Orders Only Betina Pop [employer] Work Phone: [facility] Comment on above: Metabolic syndrome ( Primary Dx) Start: 05-17-2022 End: 05-17-2022 Office outpatient visit 25 minutes Betina Pop CNP Work Phone: [facility] Comment on above: Atypical eating diso rder (Primary Dx); Insulin resistance; Obesity, Class III, BMI 40-49.9 (morbid obesity) (HCC); BMI 40.0-44.9, adult (HCC); Vitamin D deficiency; Vitamin B6 deficiency; Iron deficiency; Hypothyroidism (acquired) Start: 04-15-2022 End: 04-15-2022 Office outpatient visit 25 minutes Betina Pop CNP Work Phone: [facility] Comment on above: Atypical eating diso rder (Primary Dx); Insulin resistance; Obesity, Class III, BMI 40-49.9 (morbid obesity) (HCC); BMI 45.0-49.9, adult (HCC); Vitamin D deficiency; Vitamin B6 deficiency; Iron deficiency; Hypothyroidism (acquired) Start: 03-15-2022 End: 03-15-2022 Office outpatient visit 25 minutes Betina Pop CNP Work Phone: [facility] Comment on above: Atypical eating diso rder (Primary Dx); Insulin resistance; Obesity, morbid, BMI 50 or higher (HCC); Obesity, Class III, BMI 40-49.9 (morbid obesity) (HCC); BMI 45.0-49.9, adult (HCC); Vitamin D deficiency; Vitamin B6 deficiency; Iron deficiency; Hypothyroidism (acquired); Leg swelling Start: 02-12-2022 Orders Only Betina Pop CNP Work Phone: [facility] Comment on above: Obesity, morbid, BMI 50 or higher (HCC) Start: 02-11-2022 End: 02-11-2022 Office outpatient visit 25 minutes Betina Pop CNP Work Phone: [facility] Comment on above: Atypical eating diso rder (Primary Dx); Insulin resistance; Obesity, morbid, BMI 50 or higher (HCC); Obesity, Class III, BMI 40-49.9 (morbid obesity) (HCC); BMI 45.0-49.9, adult (HCC); Vitamin D deficiency; Vitamin B6 deficiency; Iron deficiency; Hypothyroidism (acquired); Leg swelling Start: 01-28-2022 End: 01-29-[address] CRISELDA VIVEROS Facility:[facility] Start: 01-13-2022 End: 01-13-[address] CRISELDA VIVEROS Facility: Start: 01-06-2022 End: 01-06-2022 Office outpatient visit 25 minutes Betina Pop CNP Work Phone: [facility] Comment on above: Atypical eating diso rder (Primary Dx); Insulin resistance; Obesity, morbid, BMI 50 or higher (HCC); BMI 50.0-59.9, adult (HCC); Vitamin D deficiency; Vitamin B6 deficiency; Iron deficiency; Other specified hypothyroidism; Depression, unspecified depression type Start: 12-08-2021 Refill Betina Pop [employer] Work Phone: [facility] Comment on above: Anxiety and depressi on; Vitamin D deficiency; Obesity, Class III, BMI 40-49.9 (morbid obesity) (HCC) Start: 11-30-2021 End: 11-30-2021 Office outpatient visit 25 minutes Lamberto Russo MD Work Phone: [facility] Comment on above: Atypical eating diso rder (Primary Dx); Vitamin D deficiency; Insulin resistance; Vitamin B6 deficiency; Encounter for pre-bariatric surgery counseling and education; Iron deficiency; Obesity, morbid, BMI 50 or higher (HCC); BMI 50.0-59.9, adult (HCC) Start: 10-23-2021 End: 10-23-2021 Office outpatient visit 25 minutes Lamberto Russo MD Work Phone: [facility] Comment on above: Atypical eating diso rder (Primary Dx); Insulin resistance; Vitamin D deficiency; Vitamin B6 deficiency; Encounter for pre-bariatric surgery counseling and education; Obesity, morbid, BMI 50 or higher (HCC); BMI 50.0-59.9, adult (HCC); Iron deficiency; Hypothyroidism (acquired) Start: 09-09-2021 End: 09-09-2021 Office outpatient visit 25 minutes Lamberto Russo MD Work Phone: [facility] Comment on above: Atypical eating diso rder (Primary Dx); Insulin resistance; Vitamin D deficiency; Vitamin B6 deficiency; Obesity, morbid, BMI 50 or higher (HCC); BMI 50.0-59.9, adult (HCC); Encounter for pre-bariatric surgery counseling and education Start: 08-28-2021 End: 08-28-2021 Office outpatient visit 25 minutes Evi Pacheco MD Work Phone: [facility] Comment on above: Internal hemorrhoids (Primary Dx); Rectal bleeding Start: 07-31-2021 End: 07-31-2021 Office outpatient visit 25 minutes Lamberto Russo MD Work Phone: [facility] Comment on above: Atypical eating diso rder (Primary Dx); Insulin resistance; Vitamin D deficiency; Vitamin B6 deficiency; Obesity, Class III, BMI 40-49.9 (morbid obesity) ([facility]); BMI 45.0-49.9, adult ([facility]) Start: 07-10-2021 End: 07-11-2021 [facility] Start: 07-03-2021 Orders Only Jas[facility] Comment on above: Screening for viral disease (Primary Dx) Start: 07-03-2021 End: 07-03-2021 Office outpatient visit 25 minutes Lamberto Russo MD Work Phone: [facility] Comment on above: Atypical eating diso rder (Primary Dx); Insulin resistance; Vitamin D deficiency; Vitamin B6 deficiency; Lumbar radiculopathy; Obesity, Class II, BMI 35-39.9; Depression, unspecified depression type; Obesity, Class III, BMI 40-49.9 (morbid obesity) ([facility]); BMI 45.0-49.9, adult ([facility]) Start: 06-27-2021 End: 06-28-2021 ambulatory [facility] Start: 06-08-2021 End: 06-08-2021 Office outpatient visit 25 minutes Evi Pacheco MD Work Phone: [facility] Comment on above: Cough (Primary Dx); Anxiety and depression Start: 06-02-2021 End: 06-02-2021 Office outpatient visit 25 minutes Lamberto Russo MD Work Phone: [facility] Comment on above: Atypical eating diso rder (Primary Dx); Lumbar radiculopathy; Vitamin D deficiency; Vitamin B6 deficiency; Mild intermittent asthma, unspecified whether complicated; Obesity, Class II, BMI 35-39.9; Other specified hypothyroidism; Depression, unspecified depression type; BMI 45.0-49.9, adult ([facility]) Start: 05-29-2021 End: 06-02-2021 [facility] Start: 05-05-2021 End: 05-06-2021 ambulatory [facility] Start: 04-28-2021 End: 04-28-2021 Office outpatient visit 25 minutes Lamberto Russo MD Work Phone: [facility] Comment on above: Atypical eating diso rder (Primary Dx); Vitamin D deficiency; Vitamin B6 deficiency; Iron deficiency; Hypothyroidism (acquired); Other specified hypothyroidism; Obesity, Class III, BMI 40-49.9 (morbid obesity) ([facility]); BMI 45.0-49.9, adult ([facility]); Lumbar radiculopathy; Patellofemoral stress syndrome, unspecified laterality; Fatty liver; Encounter for screening examination for impaired glucose regulation and diabetes mellitus Start: 04-25-2021 End: 04-26-[address] [facility] Start: 04-23-2021 End: 04-24-[address] [facility] Start: 04-17-2021 End: 04-21-2021 [facility] Start: 04-14-2021 End: 04-14-2021 Nutrition therapy Lamberto Russo MD Work Phone: [facility] Comment on above: BMI 45.0-49.9, adult ([facility]) Start: 04-14-2021 End: 04-14-2021 Office outpatient new 60 minutes Lamberto Russo MD Work Phone: [facility] Comment on above: Weight gain (Primary Dx); Obesity, Class II, BMI 35-39.9; Atypical eating disorder; Other specified hypothyroidism; Fatigue, unspecified type; Sleep disorder; Migraine with aura and without status migrainosus, not intractable; Depression, unspecified depression type; Elevated LFTs; Diarrhea, unspecified type; Dyspnea, unspecified type; Chronic midline low back pain without sciatica; Chronic pain of both knees; Intestinal malabsorption, unspecified type; BMI 45.0-49.9, adult (HCC); Exposure to COVID-19 virus Start: 03-24-2021 End: 03-24-2021 Office outpatient new 30 minutes Alejandra Ying MD Work Phone: [facility] Comment on above: Gastrocnemius tear, right, initial encounter (Primary Dx) Start: 03-19-2021 End: 03-20-2021 ambulatory [facility] Start: 03-18-2021 End: 03-19-2021 Emergency department patient visit [facility] Start: 03-09-2021 End: 03-09-2021 Refill Evi Pacheco MD Work Phone: [facility] Comment on above: Anxiety and depressi on Start: 11-12-2020 End: 06-08-2021 Patient encounter procedure Evi Pacheco MD Work Phone: [facility] Start: 11-12-2020 End: 11-16-2020 ambulatory [facility] Start: 11-12-2020 End: 11-12-2020 Periodic preventive med est patient 18-39 yrs Evi Pacheco Work Phone: [facility] Comment on above: Annual physical exam (Primary Dx); Other specified hypothyroidism; Anxiety and depression Start: 11-10-2020 ambulatory SELF SELF Facility:[facility] Start: 10-10-2020 End: 10-10-2020 Office outpatient visit 10 minutes Evi Pacheco Work Phone: [facility] Comment on above: Sinusitis, unspecifi ed chronicity, unspecified location (Primary Dx) Start: 10-03-2020 End: 10-03-2020 Office outpatient visit 25 minutes Christa Sarmiento Work Phone: [facility] Comment on above: Atypical eating diso rder (Primary Dx); Other specified hypothyroidism; Migraine with aura and without status migrainosus, not intractable; Obesity, Class II, BMI 35-39.9 Start: 09-05-2020 End: 09-05-2020 Orders Only Christa Sarmiento Work Phone: [facility] Comment on above: Anxiety and depressi on (Primary Dx) Start: 09-01-2020 End: 09-01-2020 Refill Evi Pacheco Work Phone: [facility] Comment on above: Other specified hypo thyroidism Start: 08-29-2020 End: 08-29-2020 Office outpatient visit 25 minutes Christa Sarmiento Work Phone: [facility] Comment on above: Atypical eating diso rder (Primary Dx); Anxiety and depression; Migraine with aura and without status migrainosus, not intractable; Obesity, Class II, BMI 35-39.9 Start: 08-04-2020 End: 08-08-2020 ambulatory [facility] Start: 08-04-2020 End: 08-04-2020 Office outpatient visit 25 minutes Evi Pacheco Work Phone: [facility] Comment on above: Vaginal bleeding (Pr imary Dx); Dysuria; Other specified hypothyroidism Start: 07-29-2020 End: 07-29-2020 Office outpatient visit 25 minutes Christa Sarmiento Work Phone: [facility] Comment on above: Atypical eating diso rder (Primary Dx); Anxiety and depression; Other specified hypothyroidism; Obesity, Class II, BMI 35-39.9 Start: 07-01-2020 End: 07-01-2020 Office outpatient visit 25 minutes Christa Sarmiento Work Phone: [facility] Comment on above: Atypical eating diso rder; Other specified hypothyroidism; Anxiety and depression; Obesity, Class II, BMI 35-39.9 Start: 05-06-2020 End: 05-06-2020 Office outpatient visit 25 minutes Christa Sarmiento Work Phone: [facility] Comment on above: Atypical eating diso rder (Primary Dx); Anxiety and depression; Sleep disturbance; Other specified hypothyroidism; Obesity, Class II, BMI 35-39.9 Start: 04-23-2020 End: 04-23-2020 Office outpatient visit 25 minutes Evielmer Pacheco Work Phone: [facility] Comment on above: Hair loss (Primary D x); Other specified hypothyroidism; Anxiety and depression; Need for influenza vaccination Start: 03-07-2020 End: 03-07-2020 Office outpatient visit 25 minutes Christamartin Sarmiento Work Phone: [facility] Comment on above: Atypical eating diso rder (Primary Dx); Insulin resistance; Sleep disturbance; Obesity, Class II, BMI 35-39.9 Start: 02-08-2020 End: 02-08-2020 Office outpatient visit 25 minutes Christamartin Sarmiento Work Phone: [facility] Comment on above: Weight gain (Primary Dx); Anxiety and depression; Other specified hypothyroidism; Obesity, Class II, BMI 35-39.9 Start: 01-29-2020 Coordination of care plan Rochelle Jo [facility] Comment on above: Care Coordination (B HP) Start: 01-29-2020 End: 01-29-2020 Patient encounter procedure [facility] Start: 12-31-2019 End: 12-31-2019 Documentation procedure Rochelle [facility] Start: 12-05-2019 Coordination of care plan Rochelle Jo [facility] Comment on above: Care Coordination (B HP) Start: 12-05-2019 End: 12-05-2019 Patient encounter procedure Rochelle [facility] Start: 11-16-2019 End: 11-16-2019 Office outpatient visit 25 minutes Evi Vargasieu Work Phone: [facility] Comment on above: Other specified hypo thyroidism (Primary Dx); Leg swelling; Anxiety and depression Start: 10-29-2019 [facility] Comment on above: Care Coordination (B HP) Start: 10-29-2019 End: 10-29-2019 Patient encounter procedure Rochelle [facility] Start: 10-26-2019 Coordination of care plan Rochelle peter [facility] Comment on above: Care Coordination (B HP) Start: 10-26-2019 End: 10-26-2019 Patient encounter procedure Rochelle [facility] Start: 10-02-2019 End: 10-02-2019 Coordination of care plan Rochelle Martinez [facility] Start: 09-18-2019 Coordination of care plan Rochelle peter [facility] Comment on above: Care Coordination (B HP) Start: 09-18-2019 End: 09-18-2019 Patient encounter procedure Rochelle [facility] Start: 09-11-2019 Coordination of care plan Rochelle peter [facility] Comment on above: Care Coordination (B HP) Start: 09-11-2019 End: 09-11-2019 Documentation procedure Evi Pacheco Work Phone: [facility] Comment on above: Care coordination BH P Start: 09-11-2019 End: 09-11-2019 Patient encounter procedure Rochelle [facility] Start: 09-06-2019 End: 09-06-2019 Documentation procedure Tasha Monalisa Anderson Work Phone: [facility] Start: 09-03-2019 Coordination of care plan Rochelle peter [facility] Comment on above: Care Coordination (B HP) Start: 09-03-2019 End: 09-03-2019 Patient encounter procedure Rochelle [facility] Start: 08-31-2019 End: 08-31-2019 Subsequent hospital visit by physician Evi Pacheco Work Phone: [facility] Comment on above: Lymphadenopathy Start: 08-28-2019 End: 08-28-2019 Subsequent hospital visit by physician Provider Not In System [facility] Comment on above: Arrived Start: 08-24-2019 Coordination of care plan Rochelle peter [facility] Comment on above: Care Coordination (B HP) Start: 08-24-2019 End: 08-24-2019 Patient encounter procedure Rochelle [facility] Start: 08-24-2019 End: 08-24-2019 Office outpatient visit 25 minutes Evi Pacheco Work Phone: [facility] Comment on above: Anxiety and depressi on (Primary Dx); Other specified hypothyroidism; Lymphadenopathy; Leg swelling Start: 08-13-2019 Follow-up encounter Kaeaustyn Vargas [facility] Comment on above: Chronic Kidney Disea se (Health department follow up) Start: 08-13-2019 End: 08-13-2019 Patient encounter procedure Kae [facility] Start: 08-10-2019 Home visit Kae Vance Sam [facility] Comment on above: Chronic Care Managem ent ( snf visits) Start: 08-10-2019 End: 08-10-2019 Patient encounter procedure Kae Vargas [facility] Start: 04-10-2019 End: 04-10-2019 Office outpatient new 45 minutes Evi Junior Work Phone: [facility] Comment on above: Tenosynovitis of rig ht wrist (Primary Dx); Other specified hypothyroidism; Rash Start: 01-17-2019 Patient encounter procedure EMILI EDOUARD [facility] Start: 01-17-2019 End: 01-17-2019 Office outpatient visit 25 minutes Emili Edouard Work Phone: [facility] Comment on above: Tendonitis of wrist, left (Primary Dx); Pain and swelling of left wrist Start: 11-10-2018 End: 11-10-2018 Subsequent hospital visit by physician Santiago James Work Phone: [facility] Start: 09-01-2018 End: 09-01-2018 [facility] Start: 01-07-2018 End: 01-07-2018 Patient encounter procedure Lisa Lord Facility: Start: 11-16-2017 End: 11-21-2017 Patient encounter procedure NEO MONTALVO Facility: Start: 11-15-2017 End: 11-21-2017 Emergency department patient visit [facility] Facility: Procedures Date Procedure Procedure Detail Performing Clinician Start: 04-14-2021 Referral to dietetic s service Lamberto Russo MD Work Phone: Start: 08-04-2020 Urnls dip stick/tabl et rgnt auto w/o microscopy Evi Pacheco Work Phone: Start: 08-31-2019 Us breast uni real t augustus with image limited Evi Pacheco Work Phone: Start: 08-31-2019 MG Breast - bilatera l diagnostic Evi Pacheco Work Phone: Start: 08-28-2019 Mammography External T ranscribed Start: 08-28-2019 Ultrasonography Externa l Transcribed Start: 08-24-2019 Thyrotropin [Units/v olume] in Serum or Plasma by Detection limit <= 0.005 mIU/L Evi Pacheco Work Phone: Start: 08-24-2019 Thyroxine (T4) free [Mass/volume] in Serum or Plasma Evi Pacheco Work Phone: Start: 04-10-2019 Adult depression scr eening assessment Kae [facility] Start: 01-17-2019 Radex wrist complete minimum 3 views Emili Edouard Work Phone: Plan of Treatment Date Care Activity Detail Author Start: 06-13-2024 History and physical examination, annual for health maintenance [facility] Start: 05-16-2024 End: 05-16-2024 Telemedicine consultation with patient 05/16/2024 1:15 PM EDT [facility] [address] [facility] [place], [address] [place] [address] Betina Pop, DIESEL FLE[employer] MECHANIC 801 [facility] 160 [place] [address] [facility] Start: 04-15-2024 Influenza vaccination [facility] Start: 03-19-2024 End: 03-19-2024 Telemedicine consultation with patient 03/19/2024 10:45 AM EDT Telemedicine [facility] [address], [address] [place] [address] Betina Pop, LATONIA [address] [address] [facility] Start: 01-18-2024 End: 01-18-2024 ambulatory 01/18/2024 10:15 AM EDT Evaluation [facility] 300 [facility], [address] [address] Betina Pop, LATONIA [address] [address] [facility] Start: 11-03-2023 End: 11-03-2023 Telemedicine consultation with patient 11/03/2023 9:00 AM EDT Tele[facility] 300 [facility], [address] [address] Betina Pop, DIES[employer] FLE[employer] MECHANIC [address] [address] [facility] Start: 09-01-2023 End: 09-01-2023 Telemedicine consultation with patient 09/01/2023 9:00 AM EST Telemedicine [facility] 801 [place] [address] Betina Pop, DIES[employer] FLE[employer] MECHANIC [address] [address] [facility] Start: 07-13-2023 End: 07-13-2023 Patient encounter procedure 07/13/2023 8:30 AM EST Office Visit [facility] 801 [place] [address] Betina Pop, DIES[employer] FLE[employer] MECHANIC [address] [address] [facility] Start: 05-09-2023 End: 05-09-2023 Telemedicine consultation with patient 05/09/2023 8:30 AM EDT Telemedicine [facility] 801 [facility] [place] [address] Betina Pop CNP [address] [place] [address] [facility] Start: 04-15-2023 Influenza vaccination [facility] Start: 03-15-2023 End: 03-15-2023 Telemedicine consultation with patient 03/15/2023 10:30 AM EDT Telemedicine [facility] 801 [facility] [place] [address] Betina Pop CNP [address] [address] [facility] Start: 01-21-2023 End: 01-21-2023 Patient encounter procedure 01/21/2023 9:00 AM EDT Office Visit [facility] 801 [facility] [place] [address] Betina Pop CNP [address] [place] [address] [facility] Start: 12-10-2022 End: 12-10-2022 Telemedicine consultation with patient 12/10/2022 Telemedicine Nutrition Betina Pop CNP [address] [place] [address] [facility] Start: 12-09-2022 History and physical examination, annual for health maintenance [facility] Start: 11-06-2022 Tetanus vaccination [facility] Start: 10-27-2022 End: 10-27-2022 Telemedicine consultation with patient 10/27/2022 Telemedicine Nutrition Betina Pop CNP [address] [address] [facility] Start: 09-08-2022 End: 09-08-2022 Telemedicine consultation with patient 09/08/2022 Telemedicine Betina Jimenez, LATONIA 801 [facility] 160 [place] [address] [facility] Start: 07-27-2022 End: 07-27-2022 Patient encounter procedure 07/27/2022 Office Visit Betina Jimenez, LATONIA 801 [facility] 160 [place] [address] [facility] Start: 06-18-2022 End: 06-18-2022 Telemedicine consultation with patient 06/18/2022 Telemedicine Betina Jimenez CNP 801 [facility] 160 [place] [address] [facility] Start: 05-17-2022 End: 05-17-2022 Telemedicine consultation with patient 05/17/2022 Telemedicine Betina Jimenez, LATONIA 801 [facility] [address] [place] [address] [facility] Start: 04-15-2022 Influenza vaccination [facility] Start: 04-15-2022 End: 04-15-2022 Patient encounter procedure 04/15/2022 Office Visit Betina Jimenez, LATONIA 801 [facility] 160 [place] [address] [facility] Start: 03-15-2022 End: 03-15-2022 Patient encounter procedure 03/15/2022 Office Visit Betina Jimenez, LATONIA 801 [facility] [address] [place] [address] [facility] Start: 02-11-2022 End: 02-11-2022 Patient encounter procedure 02/11/2022 Office Visit Betina Jimenez CNP [address] [address] [facility] Start: 01-06-2022 End: 01-06-2022 Patient encounter procedure 01/06/2022 Office Visit Lamberto Mckenna MD [address] [address] [facility] Start: 11-12-2021 History and physical examination, annual for health maintenance [facility] Start: 09-09-2021 End: 09-09-2021 Telemedicine consultation with patient 09/09/2021 Telemedicine Lamberto Mckenna MD [address] [address] [facility] Start: 07-31-2021 End: 07-31-2021 Telemedicine consultation with patient 07/31/2021 Telemedicine Lamberto Mckenna MD [address] [address] [facility] Start: 07-10-2021 End: 07-10-2021 Patient encounter procedure 07/10/2021 Appointment Sleep Medicine Lamberto Russo MD [address] [address] [facility] Start: 07-06-2021 End: 07-06-2021 Patient encounter procedure 07/06/2021 Office Visit Lab Vega Sage MD [address] [place] [address] [facility] Start: 07-01-2021 Depression screening using PHQ-9 (Patient Health Questionnaire 9) score Depression Screening/Follow-Up (PHQ-2/9) [facility] Start: 06-08-2021 End: 06-08-2021 Telemedicine consultation with patient 06/08/2021 Telemedicine Primary Care Evi Pacheco MD [address] [place] [address] [place] [address] [facility] Primary [facility] Start: 06-02-2021 End: 06-02-2021 Telemedicine consultation with patient 06/02/2021 Telemedicine Lamberto Mckenna MD [address] [address] [facility] Start: 05-13-2021 End: 05-13-2021 Office Visit [facility] Start: 05-05-2021 End: 05-05-2021 Patient encounter procedure 05/05/2021 Appointment Pulmonology Lamberto Russo MD [address] [address] [facility] Start: 05-01-2021 End: 05-01-2021 Patient encounter procedure 05/01/2021 Office Visit Lab Lamberto Russo MD [address] [address] [facility] Start: 04-28-2021 End: 04-28-2021 Telemedicine consultation with patient [facility] Start: 04-15-2021 Influenza vaccination Sequential Influenza Vaccine (#1) [facility] Start: 04-14-2021 End: 04-14-2021 Nutrition therapy 04/14/2021 [address] Alem Barnett RD [facility] Start: 04-14-2021 End: 04-14-2021 Patient encounter procedure 04/14/2021 Office Visit Lamberto Mckenna MD [address] [address] [phone] [facility] Start: 04-14-2021 End: 04-14-2021 Nutrition therapy 04/14/2021 Clinical Support Nutrition [facility] Start: 01-05-2021 Depression Remission Assessment (PHQ9) Depression Remission Assessment (PHQ9) [facility] Start: 12-08-2020 Depression Remission Assessment (PHQ9) Depression Remission Assessment (PHQ9) [facility] Start: 10-21-2020 End: 10-21-2020 Office Visit [facility] Start: 10-03-2020 End: 10-03-2020 Office Visit 10/03/2020 Office Visit Primary Care Christa Sarmiento, LATONIA [address] [place] [address] [phone] [facility] Start: 09-26-2020 End: 09-26-2020 Office Visit 09/26/2020 Office Visit Primary Care Christa Sarmiento CNP [address] [place] [address] [facility] Start: 08-29-2020 End: 08-29-2020 Office Visit 08/29/2020 Office Visit Primary Care Christa Sarmiento CNP [address] [place] [address] [phone] [facility] Start: 07-29-2020 End: 07-29-2020 Office Visit 07/29/2020 Office Visit Primary Care Christa Sarmiento CNP [address] [facility] [place] [address] [phone] [facility] Start: 06-10-2020 End: 06-10-2020 Office Visit 06/10/2020 Office Visit Primary Care Christa Sarmiento, LATONIA [address] [place] [address] [phone] [facility] Start: 05-22-2020 End: 05-22-2020 Telemedicine 05/22/2020 Telemedicine Nutrition Evi Pacheco MD 10[address] [facility] [place] [address] [phone] [facility] Start: 05-06-2020 End: 05-06-2020 Office Visit 05/06/2020 Office Visit Primary Care Christa Sarmiento, D[employer]LE[employer] MECHANIC [address] [facility] [place] [address] [phone] [facility] Start: 04-24-2020 End: 04-24-2020 Telemedicine 04/24/2020 Telemedicine Nutrition Evi Pacheoc MD [address] [facility] [place] [address] [phone] [facility] Start: 04-15-2020 Influenza vaccination given [facility] Start: 04-10-2020 Depression screening using PHQ-9 (Patient Health Questionnaire 9) score DEPRESSION SCREENING (PHQ9) [facility] Start: 03-27-2020 End: 03-27-2020 Telemedicine 03/27/2020 Telemedicine Nutrition Christa Sarmiento, DIES[employer] FLEET MECHANIC [address] [facility] [place] [address] [phone] Evi Pacheco MD [address] [facility] [place] [address] [phone] [facility] Start: 02-12-2020 Influenza vaccination given Sequential Influenza Vaccine (#1) [facility] Comment on above: Postponed from 04/15/2019 (Patient Refus ed) Start: 02-08-2020 End: 02-05-2021 Lipoproteins measurement Lipoprotein NMR Lab Routine Weight gain Obesity, Class II, BMI 35-39.9 Expected: 02/08/2020, Expires: 02/05/2021 [facility] Comment on above: Expected: 02/08/2020, Expires: Start: 02-08-2020 End: 02-08-2020 Office Visit 02/08/2020 Office Visit Primary Care Christa Sarmiento, D[employer] F[employer] MECHANIC [address] [place] [address] [phone] [facility] Start: 12-21-2019 End: 12-21-2019 Office Visit 12/21/2019 Office Visit Primary Care Evi Pacheco MD [address] [place] [address] [phone] [facility] Start: 11-16-2019 End: 11-16-2019 Office Visit 11/16/2019 Office Visit Primary Care Evi Pacheco MD [address] [place] [address] [phone] [facility] Start: 11-01-2019 End: 11-01-2019 Appointment 11/01/2019 Appointment Cardiology Evi Pacheco MD [address] [place] [address] [phone] [facility] Card[facility] Non-In[facility] Start: 10-05-2019 End: 10-05-2019 Office Visit 10/05/2019 Office Visit Primary Care Evi Pacheco MD [address] [place] [address] [phone] [facility] Start: 08-31-2019 End: 08-31-2019 Appointment 08/31/2019 Appointment Radiology Evi Pacheco MD [address] [place] [address] [phone] [facility] Start: 06-11-2019 End: 06-11-2019 Office Visit 06/11/2019 Office Visit Primary Care Evi Pacheco MD [address] [place] [address] [phone] [facility] Start: 04-15-2019 Influenza vaccination given [facility] Start: 2017 Screening for malignant neoplasm of cervix [facility] Start: 2008 Screening for malignant neoplasm of cervix Pap Smear [facility] Start: 2005 Hepatitis C antibody, confirmatory test Hepatitis C Screening [facility] Start: 2003 COVID-19 Vaccine (1 of 2) COVID-19 Vaccine (1 of 2) [facility] Start: 2003 COVID-19 Vaccine (1) COVID-19 Vaccine (1) [facility] Start: 2002 HIV screening HIV Screening [facility] Start: 1999 COVID-19 Vaccine (1) COVID-19 Vaccine (1) [facility] Start: 1993 Pneumococcal Vaccine: Ped or At-Risk (1 - PCV) Pneumococcal Vaccine: Ped or At-Risk (1 - PCV) [facility] Start: 1993 Pneumococcal Vaccine: Ped or At-Risk (1 of 2 - PCV) Pneumococcal Vaccine: Ped or At-Risk (1 of 2 - PCV) [facility] Start: 1993 Pneumococcal Vaccine: Ped or At-Risk (1 of 4 - PCV13) Pneumococcal Vaccine: Ped or At-Risk (1 of 4 - PCV13) [facility] Start: 1992 COVID-19 Vaccine (#1) COVID-19 Vaccine (#1) [facility] Start: 1990 History and physical examination, annual for health maintenance Wellness Visit [facility] Start: 1987 COVID-19 Vaccine (#1) COVID-19 Vaccine (#1) [facility] Start: 1987 Screening for malignant neoplasm of cervix PAP SMEAR [facility] Start: 1987 Tetanus vaccination TETANUS EVERY 10 YR [facility] End: 04-14-2022 Anti-thyroid antibody measurement Thyroid Antibody Group Lab Routine Other Specified Hypothyroidism 1 Occurrences starting 04/14/2021 until 04/14/2022 [facility] Comment on above: 1 Occurrences starting 04/14/2021 until 04/14/2022 End: 08-04-2021 Bacteria identified Aer cx Nom (Unsp spec) Urine Aerobic Culture Microbiology Routine Dysuria 1 Occurrences starting 08/04/2020 until 08/04/2021 [facility] Comment on above: 1 Occurrences starting 08/04/2020 until 08/04/2021 End: 10-23-2022 CBC panel - Blood by Automated count CBC Lab Routine Iron deficiency 1 Occurrences starting 10/23/2021 until 10/23/2022 [facility] Comment on above: 1 Occurrences starting 10/23/2021 until 10/23/2022 End: 04-14-2022 Celiac Associated HLA_DQ Typing Celiac Associated HLA_DQ Typing Lab Routine Diarrhea, unspecified type 1 Occurrences starting 04/14/2021 until 04/14/2022 [facility] Comment on above: 1 Occurrences starting 04/14/2021 until 04/14/2022 End: 04-14-2022 Celiac disease screen Celiac Serology [place] Panel Lab Routine Diarrhea, unspecified type 1 Occurrences starting 04/14/2021 until 04/14/2022 [facility] Comment on above: 1 Occurrences starting 04/14/2021 until 04/14/2022 End: 08-04-2021 Chlamydia trachomatis rRNA assay Chlamydia/GC/Trichomonas Amplified RNA Microbiology Routine Vaginal bleeding Dysuria 1 Occurrences starting 08/04/2020 until 08/04/2021 [facility] Comment on above: 1 Occurrences starting 08/04/2020 until 08/04/2021 End: 04-14-2022 Cobalamin (Vitamin B12) [Mass/volume] in Serum or Plasma Vitamin B12 Lab Routine Intestinal malabsorption, unspecified type 1 Occurrences starting 04/14/2021 until 04/14/2022 [facility] Comment on above: 1 Occurrences starting 04/14/2021 until 04/14/2022 End: 10-23-2022 Cobalamin (Vitamin B12) [Mass/volume] in Serum or Plasma Vitamin B12 Lab Routine Insulin resistance 1 Occurrences starting 10/23/2021 until 10/23/2022 [facility] Comment on above: 1 Occurrences starting 10/23/2021 until 10/23/2022 End: 11-30-2022 Cobalamin (Vitamin B12) [Mass/volume] in Serum or Plasma Vitamin B12 Lab Routine Insulin resistance 1 Occurrences starting 11/30/2021 until 11/30/2022 [facility] Comment on above: 1 Occurrences starting 11/30/2021 until 11/30/2022 End: 06-17-2023 Cobalamin (Vitamin B12) [Mass/volume] in Serum or Plasma Vitamin B12 Lab Routine Insulin resistance 1 Occurrences starting 06/17/2022 until 06/17/2023 [facility] Comment on above: 1 Occurrences starting 06/17/2022 until 06/17/2023 End: 04-14-2022 Complete blood count with white cell differential, manual CBC and Differential Lab Routine Weight gain 1 Occurrences starting 04/14/2021 until 04/14/2022 [facility] Work Phone: Comment on above: 1 Occurrences starting 04/14/2021 until 04/14/2022 End: 11-30-2022 Complete blood count with white cell differential, manual CBC and Differential Lab Routine Atypical eating disorder 1 Occurrences starting 11/30/2021 until 11/30/2022 [facility] Comment on above: 1 Occurrences starting 11/30/2021 until 11/30/2022 End: 06-17-2023 Complete blood count with white cell differential, manual CBC and Differential Lab Routine Iron deficiency 1 Occurrences starting 06/17/2022 until 06/17/2023 [facility] Comment on above: 1 Occurrences starting 06/17/2022 until 06/17/2023 End: 07-27-2023 Complete blood count with white cell differential, manual CBC and Differential Lab Routine Iron deficiency 1 Occurrences starting 07/27/2022 until 07/27/2023 [facility] Comment on above: 1 Occurrences starting 07/27/2022 until 07/27/2023 End: 10-28-2023 Complete blood count with white cell differential, manual CBC and Differential Lab Routine Iron deficiency 1 Occurrences starting 10/27/2022 until 10/28/2023 [facility] Work Phone: Comment on above: 1 Occurrences starting 10/27/2022 until 10/28/2023 End: 04-14-2022 Complete PFT with Pre and Post Bronchodilator volumes and dlco Complete PFT with Pre and Post Bronchodilator volumes and dlco PFT Routine Dyspnea, unspecified type 1 Occurrences starting 04/14/2021 until 04/14/2022 [facility] Comment on above: 1 Occurrences starting 04/14/2021 until 04/14/2022 End: 04-14-2022 Comprehensive metabolic 2000 panel - Serum or Plasma Comprehensive Metabolic Panel Lab Routine Weight gain 1 Occurrences starting 04/14/2021 until 04/14/2022 [facility] Comment on above: 1 Occurrences starting 04/14/2021 until 04/14/2022 End: 10-23-2022 Comprehensive metabolic 2000 panel - Serum or Plasma Comprehensive Metabolic Panel Lab Routine Atypical eating disorder 1 Occurrences starting 10/23/2021 until 10/23/2022 [facility] Comment on above: 1 Occurrences starting 10/23/2021 until 10/23/2022 End: 11-30-2022 Comprehensive metabolic 2000 panel - Serum or Plasma Comprehensive Metabolic Panel Lab Routine Atypical eating disorder 1 Occurrences starting 11/30/2021 until 11/30/2022 [facility] Comment on above: 1 Occurrences starting 11/30/2021 until 11/30/2022 End: 06-17-2023 Comprehensive metabolic 2000 panel - Serum or Plasma Comprehensive Metabolic Panel Lab Routine Insulin resistance 1 Occurrences starting 06/17/2022 until 06/17/2023 [facility] Work Phone: Comment on above: 1 Occurrences starting 06/17/2022 until 06/17/2023 End: 04-14-2022 Elastase measurement Pancreatic Elastase, Fecal Lab Routine Diarrhea, unspecified type 1 Occurrences starting 04/14/2021 until 04/14/2022 [facility] Comment on above: 1 Occurrences starting 04/14/2021 until 04/14/2022 End: 04-14-2022 Fecal Fat, Quantitative Fecal Fat, Quantitative Lab Routine Diarrhea, unspecified type 1 Occurrences starting 04/14/2021 until 04/14/2022 [facility] Comment on above: 1 Occurrences starting 04/14/2021 until 04/14/2022 End: 04-23-2021 Ferritin [Mass/Vol] Ferritin Lab Routine Hair loss 1 Occurrences starting 04/23/2020 until 04/23/2021 [facility] Comment on above: 1 Occurrences starting 04/23/2020 until 04/23/2021 End: 04-14-2022 Ferritin [Mass/volume] in Serum or Plasma Ferritin Lab Routine Intestinal malabsorption, unspecified type 1 Occurrences starting 04/14/2021 until 04/14/2022 [facility] Comment on above: 1 Occurrences starting 04/14/2021 until 04/14/2022 End: 10-23-2022 Ferritin [Mass/volume] in Serum or Plasma Ferritin Lab Routine Iron deficiency 1 Occurrences starting 10/23/2021 until 10/23/2022 [facility] Comment on above: 1 Occurrences starting 10/23/2021 until 10/23/2022 End: 11-30-2022 Ferritin [Mass/volume] in Serum or Plasma Ferritin Lab Routine Iron deficiency 1 Occurrences starting 11/30/2021 until 11/30/2022 [facility] Comment on above: 1 Occurrences starting 11/30/2021 until 11/30/2022 End: 11-03-2023 Ferritin [Mass/volume] in Serum or Plasma Ferritin Lab Routine Iron deficiency 1 Occurrences starting 06/17/2022 until 06/17/2023 [facility] Comment on above: 1 Occurrences starting 06/17/2022 until 06/17/2023 End: 10-28-2023 Ferritin [Mass/volume] in Serum or Plasma Ferritin Lab Routine Iron deficiency 1 Occurrences starting 10/27/2022 until 10/28/2023 [facility] Comment on above: 1 Occurrences starting 10/27/2022 until 10/28/2023 End: 04-14-2022 Folate [Mass/volume] in Serum or Plasma Folate Lab Routine Intestinal malabsorption, unspecified type 1 Occurrences starting 04/14/2021 until 04/14/2022 [facility] Comment on above: 1 Occurrences starting 04/14/2021 until 04/14/2022 End: 10-28-2023 Folate [Mass/volume] in Serum or Plasma Folate Lab Routine Iron deficiency 1 Occurrences starting 10/27/2022 until 10/28/2023 [facility] Comment on above: 1 Occurrences starting 10/27/2022 until 10/28/2023 End: 04-23-2021 Free T4 [Mass/Vol] T4, Free Lab Routine Other specified hypothyroidism Hair loss 1 Occurrences starting 04/23/2020 until 04/23/2021 [facility] Comment on above: 1 Occurrences starting 04/23/2020 until 04/23/2021 End: 04-10-2020 Free T4 [Mass/Vol] T4, Free Lab Routine Other specified hypothyroidism 1 Occurrences starting 04/10/2019 until 04/10/2020 [facility] Comment on above: 1 Occurrences starting 04/10/2019 until 04/10/2020 End: 04-28-2022 Glucose Tolerance, Standard (75g) Glucose Tolerance, Standard (75g) Lab Routine Encounter for screening examination for impaired glucose regulation and diabetes mellitus 1 Occurrences starting 04/28/2021 until 04/28/2022 [facility] Comment on above: 1 Occurrences starting 04/28/2021 until 04/28/2022 End: 11-12-2021 HbA1c (Bld) [Mass fraction] Hemoglobin A1c Lab Routine Annual physical exam 1 Occurrences starting 11/12/2020 until 11/12/2021 [facility] Comment on above: 1 Occurrences starting 11/12/2020 until 11/12/2021 HbA1c (Bld) [Mass fraction] Hemoglobin A1c Lab Routine Annual physical exam 11/12/2020 10:57 AM EDT [facility] End: 04-14-2022 Hemoglobin A1c/Hemoglobin.total in Blood Hemoglobin A1c Lab Routine Weight gain 1 Occurrences starting 04/14/2021 until 04/14/2022 [facility] Comment on above: 1 Occurrences starting 04/14/2021 until 04/14/2022 End: 11-12-2021 Hepatitis C antibody measurement Hepatitis C Antibody Lab Routine Annual physical exam 1 Occurrences starting 11/12/2020 until 11/12/2021 [facility] Comment on above: 1 Occurrences starting 11/12/2020 until 11/12/2021 Hepatitis C antibody measurement Hepatitis C Antibody Lab Routine Annual physical exam 11/12/2020 10:57 AM EDT [facility] End: 04-14-2022 Insulin [Units/volume] in Serum or Plasma Insulin, Total Lab Routine Weight gain 1 Occurrences starting 04/14/2021 until 04/14/2022 [facility] Comment on above: 1 Occurrences starting 04/14/2021 until 04/14/2022 End: 04-28-2022 Insulin [Units/volume] in Serum or Plasma Insulin, Total Lab Routine Encounter for screening examination for impaired glucose regulation and diabetes mellitus 1 Occurrences starting 04/28/2021 until 04/28/2022 [facility] Comment on above: 1 Occurrences starting 04/28/2021 until 04/28/2022 End: 04-14-2022 Iron and Iron binding capacity panel - Serum or Plasma Iron and TIBC Lab Routine Intestinal malabsorption, unspecified type 1 Occurrences starting 04/14/2021 until 04/14/2022 [facility] Comment on above: 1 Occurrences starting 04/14/2021 until 04/14/2022 End: 10-23-2022 Iron and Iron binding capacity panel - Serum or Plasma Iron and TIBC Lab Routine Iron deficiency 1 Occurrences starting 10/23/2021 until 10/23/2022 [facility] Comment on above: 1 Occurrences starting 10/23/2021 until 10/23/2022 End: 11-30-2022 Iron and Iron binding capacity panel - Serum or Plasma Iron and TIBC Lab Routine Iron deficiency 1 Occurrences starting 11/30/2021 until 11/30/2022 [facility] Comment on above: 1 Occurrences starting 11/30/2021 until 11/30/2022 End: 06-17-2023 Iron and Iron binding capacity panel - Serum or Plasma Iron and TIBC Lab Routine Iron deficiency 1 Occurrences starting 06/17/2022 until 06/17/2023 [facility] Comment on above: 1 Occurrences starting 06/17/2022 until 06/17/2023 End: 10-28-2023 Iron and Iron binding capacity panel - Serum or Plasma Iron and TIBC Lab Routine Iron deficiency 1 Occurrences starting 10/27/2022 until 10/28/2023 [facility] Comment on above: 1 Occurrences starting 10/27/2022 until 10/28/2023 Lipoproteins measurement Lipopro tein NMR Lab Routine Weight gain Obesity, Class II, BMI 35-39.9 02/08/2020 11:31 AM EDT [facility] End: 04-14-2022 Lipoproteins measurement Lipoprotein NMR Lab Routine Intestinal malabsorption, unspecified type 1 Occurrences starting 04/14/2021 until 04/14/2022 [facility] Comment on above: 1 Occurrences starting 04/14/2021 until 04/14/2022 End: 06-17-2023 Lipoproteins measurement Lipoprotein NMR Lab Routine Insulin resistance 1 Occurrences starting 06/17/2022 until 06/17/2023 [facility] Comment on above: 1 Occurrences starting 06/17/2022 until 06/17/2023 End: 04-14-2022 Liver function tests - general Liver Fibrosis, Fibro Test Lab Routine Elevated LFTs 1 Occurrences starting 04/14/2021 until 04/14/2022 [facility] Comment on above: 1 Occurrences starting 04/14/2021 until 04/14/2022 End: 04-14-2022 Magnesium [Mass/volume] in Serum or Plasma Magnesium Level Lab Routine Intestinal malabsorption, unspecified type 1 Occurrences starting 04/14/2021 until 04/14/2022 [facility] Comment on above: 1 Occurrences starting 04/14/2021 until 04/14/2022 End: 10-22-2020 MG Breast - right diagnostic Mammography Diagnostic Right Imaging Routine Lymphadenopathy 1 Occurrences starting 08/24/2019 until 10/22/2020 [facility] Comment on above: 1 Occurrences starting 08/24/2019 until 10/22/2020 End: 04-14-2022 Natriuretic peptide.B prohormone N-Terminal [Mass/volume] in Serum or Plasma NT Pro BNP Lab Routine Dyspnea, unspecified type 1 Occurrences starting 04/14/2021 until 04/14/2022 [facility] Comment on above: 1 Occurrences starting 04/14/2021 until 04/14/2022 Neisseria gonorrhoea e nucleic acid detection Chlamydia/Gonorrhoeae Amplified RNA Microbiology Routine Vaginal bleeding Dysuria Ordered: 08/04/2020 [facility] Comment on above: Ordered: 08/04/2020 End: 04-14-2022 Pyridoxal 5 phosphate level Vitamin B6 Lab Routine Intestinal malabsorption, unspecified type 1 Occurrences starting 04/14/2021 until 04/14/2022 [facility] Comment on above: 1 Occurrences starting 04/14/2021 until 04/14/2022 End: 10-23-2022 Pyridoxal 5 phosphate level Vitamin B6 Lab Routine Vitamin B6 deficiency 1 Occurrences starting 10/23/2021 until 10/23/2022 [facility] Comment on above: 1 Occurrences starting 10/23/2021 until 10/23/2022 End: 11-30-2022 Pyridoxal 5 phosphate level Vitamin B6 Lab Routine Vitamin B6 deficiency 1 Occurrences starting 11/30/2021 until 11/30/2022 [facility] Comment on above: 1 Occurrences starting 11/30/2021 until 11/30/2022 End: 06-17-2023 Pyridoxal 5 phosphate level Vitamin B6 Lab Routine Vitamin B6 deficiency 1 Occurrences starting 06/17/2022 until 06/17/2023 [facility] Comment on above: 1 Occurrences starting 06/17/2022 until 06/17/2023 End: 04-14-2022 SARS-CoV-2 (COVID-19) RdRp gene [Presence] in Respiratory specimen by [facility] with probe detection COVID-19, Molecular Microbiology Routine Exposure to COVID-19 virus 1 Occurrences starting 04/14/2021 until 04/14/2022 [facility] Comment on above: 1 Occurrences starting 04/14/2021 until 04/14/2022 End: 07-03-2022 SARS-CoV-2 (COVID-19) RdRp gene [Presence] in Respiratory specimen by [facility] with probe detection COVID-19, Molecular Microbiology Routine Screening for viral disease 1 Occurrences starting 07/03/2021 until 07/03/2022 [facility] Work Phone: Comment on above: 1 Occurrences starting 07/03/2021 until 07/03/2022 End: 04-14-2022 Standard chest X-ray XR Chest AP/PA and LAT Imaging Routine Dyspnea, unspecified type 1 Occurrences starting 04/14/2021 until 04/14/2022 [facility] Comment on above: 1 Occurrences starting 04/14/2021 until 04/14/2022 End: 04-14-2022 Thiamine measurement Vitamin B1, Whole Blood Lab Routine Intestinal malabsorption, unspecified type 1 Occurrences starting 04/14/2021 until 04/14/2022 [facility] Comment on above: 1 Occurrences starting 04/14/2021 until 04/14/2022 End: 04-14-2022 Thyrotropin [Units/volume] in Serum or Plasma TSH Lab Routine Other Specified Hypothyroidism 1 Occurrences starting 04/14/2021 until 04/14/2022 [facility] Comment on above: 1 Occurrences starting 04/14/2021 until 04/14/2022 End: 04-28-2022 Thyrotropin [Units/volume] in Serum or Plasma TSH Lab Routine Hypothyroidism (acquired) 1 Occurrences starting 04/28/2021 until 04/28/2022 [facility] Work Phone: Comment on above: 1 Occurrences starting 04/28/2021 until 04/28/2022 End: 10-23-2022 Thyrotropin [Units/volume] in Serum or Plasma TSH with Reflex Free T4 Lab Routine Hypothyroidism (acquired) 1 Occurrences starting 10/23/2021 until 10/23/2022 [facility] Comment on above: 1 Occurrences starting 10/23/2021 until 10/23/2022 End: 11-30-2022 Thyrotropin [Units/volume] in Serum or Plasma TSH with Reflex Free T4 Lab Routine Atypical eating disorder 1 Occurrences starting 11/30/2021 until 11/30/2022 [facility] Work Phone: Comment on above: 1 Occurrences starting 11/30/2021 until 11/30/2022 End: 01-07-2023 Thyrotropin [Units/volume] in Serum or Plasma TSH Lab Routine Other specified hypothyroidism 1 Occurrences starting 01/06/2022 until 01/07/2023 [facility] Work Phone: Comment on above: 1 Occurrences starting 01/06/2022 until 01/07/2023 End: 04-16-2023 Thyrotropin [Units/volume] in Serum or Plasma TSH Lab Routine Hypothyroidism (acquired) 1 Occurrences starting 04/15/2022 until 04/16/2023 [facility] Work Phone: Comment on above: 1 Occurrences starting 04/15/2022 until 04/16/2023 Thyrotropin [Units/volume] in Serum or Plasma TSH Lab Routine Hypothyroidism (acquired) 04/15/2022 10:49 AM EDT [facility] End: 06-17-2023 Thyrotropin [Units/volume] in Serum or Plasma TSH Lab Routine Hypothyroidism (acquired) 1 Occurrences starting 06/17/2022 until 06/17/2023 [facility] Comment on above: 1 Occurrences starting 06/17/2022 until 06/17/2023 End: 07-12-2023 Thyrotropin [Units/volume] in Serum or Plasma TSH with Reflex Free T4 Lab Routine Hypothyroidism (acquired) 1 Occurrences starting 07/12/2022 until 07/12/2023 [facility] Work Phone: Comment on above: 1 Occurrences starting 07/12/2022 until 07/12/2023 End: 07-27-2023 Thyrotropin [Units/volume] in Serum or Plasma TSH Lab Routine Hypothyroidism (acquired) 1 Occurrences starting 07/27/2022 until 07/27/2023 [facility] Work Phone: Comment on above: 1 Occurrences starting 07/27/2022 until 07/27/2023 End: 10-28-2023 Thyrotropin [Units/volume] in Serum or Plasma TSH Lab Routine Hypothyroidism (acquired) 1 Occurrences starting 10/27/2022 until 10/28/2023 [facility] Comment on above: 1 Occurrences starting 10/27/2022 until 10/28/2023 End: 01-28-2024 Thyrotropin [Units/volume] in Serum or Plasma TSH Lab Routine Hypothyroidism (acquired) 1 Occurrences starting 01/27/2023 until 01/28/2024 [facility] Work Phone: Comment on above: 1 Occurrences starting 01/27/2023 until 01/28/2024 End: 04-14-2022 Thyroxine (T4) free [Mass/volume] in Serum or Plasma T4, Free Lab Routine Other Specified Hypothyroidism 1 Occurrences starting 04/14/2021 until 04/14/2022 [facility] Comment on above: 1 Occurrences starting 04/14/2021 until 04/14/2022 End: 04-28-2022 Thyroxine (T4) free [Mass/volume] in Serum or Plasma T4, Free Lab Routine Hypothyroidism (acquired) 1 Occurrences starting 04/28/2021 until 04/28/2022 [facility] Comment on above: 1 Occurrences starting 04/28/2021 until 04/28/2022 End: 01-07-2023 Thyroxine (T4) free [Mass/volume] in Serum or Plasma T4, Free Lab Routine Other specified hypothyroidism 1 Occurrences starting 01/06/2022 until 01/07/2023 [facility] Comment on above: 1 Occurrences starting 01/06/2022 until 01/07/2023 End: 04-16-2023 Thyroxine (T4) free [Mass/volume] in Serum or Plasma T4, Free Lab Routine Hypothyroidism (acquired) 1 Occurrences starting 04/15/2022 until 04/16/2023 [facility] Comment on above: 1 Occurrences starting 04/15/2022 until 04/16/2023 Thyroxine (T4) free [Mass/volume] in Serum or Plasma T4, Free Lab Routine Hypothyroidism (acquired) 04/15/2022 10:49 AM EDT [facility] End: 06-18-2023 Thyroxine (T4) free [Mass/volume] in Serum or Plasma T4, Free Lab Routine Hypothyroidism (acquired) 1 Occurrences starting 06/17/2022 until 06/18/2023 [facility] Comment on above: 1 Occurrences starting 06/17/2022 until 06/18/2023 End: 07-28-2023 Thyroxine (T4) free [Mass/volume] in Serum or Plasma T4, Free Lab Routine Hypothyroidism (acquired) 1 Occurrences starting 07/27/2022 until 07/28/2023 [facility] Comment on above: 1 Occurrences starting 07/27/2022 until 07/28/2023 End: 10-28-2023 Thyroxine (T4) free [Mass/volume] in Serum or Plasma T4, Free Lab Routine Hypothyroidism (acquired) 1 Occurrences starting 10/27/2022 until 10/28/2023 [facility] Comment on above: 1 Occurrences starting 10/27/2022 until 10/28/2023 End: 01-28-2024 Thyroxine (T4) free [Mass/volume] in Serum or Plasma T4, Free Lab Routine Hypothyroidism (acquired) 1 Occurrences starting 01/27/2023 until 01/28/2024 [facility] Comment on above: 1 Occurrences starting 01/27/2023 until 01/28/2024 End: 08-04-2021 Transvaginal ultrasonography of pelvis US Transvaginal Imaging STAT Vaginal bleeding 1 Occurrences starting 08/04/2020 until 08/04/2021 [facility] Comment on above: 1 Occurrences starting 08/04/2020 until 08/04/2021 Trichomonas vaginali s Amplified RNA Trichomonas vaginalis Amplified RNA Microbiology Routine Vaginal bleeding Dysuria Ordered: 08/04/2020 [facility] Comment on above: Ordered: 08/04/2020 End: 04-14-2022 Triiodothyronine (T3) [Mass/volume] in Serum or Plasma T3 Lab Routine Other Specified Hypothyroidism 1 Occurrences starting 04/14/2021 until 04/14/2022 [facility] Comment on above: 1 Occurrences starting 04/14/2021 until 04/14/2022 End: 04-28-2022 Triiodothyronine (T3) [Mass/volume] in Serum or Plasma T3 Lab Routine Hypothyroidism (acquired) 1 Occurrences starting 04/28/2021 until 04/28/2022 [facility] Comment on above: 1 Occurrences starting 04/28/2021 until 04/28/2022 End: 01-06-2023 Triiodothyronine (T3) [Mass/volume] in Serum or Plasma T3 Lab Routine Other specified hypothyroidism 1 Occurrences starting 01/06/2022 until 01/06/2023 [facility] Comment on above: 1 Occurrences starting 01/06/2022 until 01/06/2023 End: 04-15-2023 Triiodothyronine (T3) [Mass/volume] in Serum or Plasma T3 Lab Routine Hypothyroidism (acquired) 1 Occurrences starting 04/15/2022 until 04/15/2023 [facility] Comment on above: 1 Occurrences starting 04/15/2022 until 04/15/2023 Triiodothyronine (T3 ) [Mass/volume] in Serum or Plasma T3 Lab Routine Hypothyroidism (acquired) 04/15/2022 10:49 AM EDT [facility] End: 06-17-2023 Triiodothyronine (T3) [Mass/volume] in Serum or Plasma T3 Lab Routine Hypothyroidism (acquired) 1 Occurrences starting 06/17/2022 until 06/17/2023 [facility] Comment on above: 1 Occurrences starting 06/17/2022 until 06/17/2023 End: 07-27-2023 Triiodothyronine (T3) [Mass/volume] in Serum or Plasma T3 Lab Routine Hypothyroidism (acquired) 1 Occurrences starting 07/27/2022 until 07/27/2023 [facility] Comment on above: 1 Occurrences starting 07/27/2022 until 07/27/2023 End: 10-28-2023 Triiodothyronine (T3) [Mass/volume] in Serum or Plasma T3 Lab Routine Hypothyroidism (acquired) 1 Occurrences starting 10/27/2022 until 10/28/2023 [facility] Comment on above: 1 Occurrences starting 10/27/2022 until 10/28/2023 End: 01-28-2024 Triiodothyronine (T3) [Mass/volume] in Serum or Plasma T3 Lab Routine Hypothyroidism (acquired) 1 Occurrences starting 01/27/2023 until 01/28/2024 [facility] Comment on above: 1 Occurrences starting 01/27/2023 until 01/28/2024 End: 04-23-2021 TSH Qn TSH Lab Routine Other specified hypothyroidism Hair loss 1 Occurrences starting 04/23/2020 until 04/23/2021 [facility] Comment on above: 1 Occurrences starting 04/23/2020 until 04/23/2021 End: 07-29-2021 TSH Qn TSH with Reflex Free T4 Lab Routine Other specified hypothyroidism 1 Occurrences starting 07/29/2020 until 07/29/2021 [facility] Comment on above: 1 Occurrences starting 07/29/2020 until 07/29/2021 End: 04-09-2020 TSH Qn TSH Lab Routine Other specified hypothyroidism 1 Occurrences starting 04/10/2019 until 04/09/2020 [facility] Comment on above: 1 Occurrences starting 04/10/2019 until 04/09/2020 End: 08-24-2020 Ultrasonography of right breast US Breast Right Complete Imaging Routine Lymphadenopathy 1 Occurrences starting 08/24/2019 until 08/24/2020 [facility] Comment on above: 1 Occurrences starting 08/24/2019 until 08/24/2020 End: 10-22-2020 Ultrasound duplex venous leg left Ultrasound duplex venous leg left Vascular Ultrasound Routine Leg swelling 1 Occurrences starting 08/24/2019 until 10/22/2020 [facility] Comment on above: 1 Occurrences starting 08/24/2019 until 10/22/2020 End: 04-14-2022 Urate [Mass/volume] in Serum or Plasma Uric Acid Lab Routine Intestinal malabsorption, unspecified type 1 Occurrences starting 04/14/2021 until 04/14/2022 [facility] Comment on above: 1 Occurrences starting 04/14/2021 until 04/14/2022 End: 04-14-2022 US scan of upper abdomen US Abdomen Limited Study Imaging Routine Elevated LFTs 1 Occurrences starting 04/14/2021 until 04/14/2022 [facility] Comment on above: 1 Occurrences starting 04/14/2021 until 04/14/2022 End: 04-14-2022 Vitamin D, 25-hydroxy measurement Vitamin D, Total, 25-OH Lab Routine Intestinal malabsorption, unspecified type 1 Occurrences starting 04/14/2021 until 04/14/2022 [facility] Comment on above: 1 Occurrences starting 04/14/2021 until 04/14/2022 End: 10-23-2022 Vitamin D, 25-hydroxy measurement Vitamin D, Total, 25-OH Lab Routine Vitamin D deficiency 1 Occurrences starting 10/23/2021 until 10/23/2022 [facility] Work Phone: Comment on above: 1 Occurrences starting 10/23/2021 until 10/23/2022 End: 11-30-2022 Vitamin D, 25-hydroxy measurement Vitamin D, Total, 25-OH Lab Routine Vitamin D deficiency 1 Occurrences starting 11/30/2021 until 11/30/2022 [facility] Comment on above: 1 Occurrences starting 11/30/2021 until 11/30/2022 End: 06-17-2023 Vitamin D, 25-hydroxy measurement Vitamin D, Total, 25-OH Lab Routine Vitamin D deficiency 1 Occurrences starting 06/17/2022 until 06/17/2023 [facility] Comment on above: 1 Occurrences starting 06/17/2022 until 06/17/2023 End: 04-14-2022 XR Knees Bilateral WB OA 3 Views XR Knees Bilateral WB OA 3 Views Imaging Routine Chronic Pain Of Both Knees 1 Occurrences starting 04/14/2021 until 04/14/2022 [facility] Comment on above: 1 Occurrences starting 04/14/2021 until 04/14/2022 End: 08-31-2022 XR Lumbar Spine 2-3 Views (Standard) XR Lumbar Spine 2-3 Views (Standard) Imaging Routine Chronic Midline Low Back Pain Without Sciatica 1 Occurrences starting 04/14/2021 until 04/14/2022 [facility] Comment on above: 1 Occurrences starting 04/14/2021 until 04/14/2022 Immunizations Immunization Date Immunization Notes Care Provider Kostas [facility] 04-23-2020 influenza, injectabl e, quadrivalent, preservative free Evi [facility] 04-23-2020 flu vacc [id number] 6 mos up,PF, sdv (FLUZONE QUAD) injection Evi [facility] 04-23-2020 influenza virus vacc ine, unspecified formulation Trinity Lizzy [facility] 08-31-2013 influenza virus vacc ine, unspecified formulation [facility] 08-31-2013 influenza virus vacc ine, whole virus [facility] 11-06-2012 tetanus toxoid, redu deonte diphtheria toxoid, and acellular pertussis vaccine, adsorbed [facility] 07-28-2012 influenza virus vacc ine, whole virus [facility] Payers Date Payer Category Payer Unknown [facility] [place] [employer] [id number] 2021-Present [phone] [address] [place] [address] [id number] 2018 Medicaid [id number] 2018 Medicaid [id number] 2018 Medicaid [employer] [id number] 2018-Present [id number] 2018 Medicaid [employer] [id number] 2018-Present [phone] [address] [place] [address] [id number] [id number] 2018 Medicaid [employer] [id number] 2018-Present [phone] [address] [place] [address] [id number] [id number] 2018 Medicaid [id number] 2018 Medicaid [id number] [id number] 2018 Unknown [id number] 2018 Unknown [id number] 2017 Self-pay [employer] 2017 Unknown [id number] 1987 Unknown [id number] 2.16.840.1.884988.3.579.2.718 1987 Unknown [id number] 2.16.840.1.040010.3.579.2.718 1987 Unknown [id number] 2.16.840.1.137878.3.579.2.718 1987 Unknown [id number] 2.16.840.1.572361.3.579.2.903 1987 Unknown [id number] 2.16.840.1.248025.3.579.2.903 1987 Unknown [id number] 2.16.840.1.509623.3.579.2.903 1987 Unknown [id number] 2.16.840.1.323490.3.579.2.903 1987 Unknown [id number] 2.16.840.1.147061.3.579.2.903 1987 Unknown [id number] 2.16.840.1.362918.3.579.2.903 1987 Unknown [id number] 2.16.840.1.578185.3.579.2.903 1987 Unknown [id number] 2.16.840.1.605050.3.579.2.903 1987 Unknown [id number] 2.16.840.1.591560.3.579.2.903 1987 Unknown [id number] 2.16.840.1.269584.3.579.2.903 1987 Unknown [id number] 2.16.840.1.826692.3.579.2.903 1987 Unknown [id number] 2.16.840.1.921381.3.579.2.903 1987 Unknown [id number] 2.16.840.1.941605.3.579.2.903 1987 Unknown [id number] 2.16.840.1.250302.3.579.2.903 1987 Unknown [id number] 2.16.840.1.884065.3.579.2.903 1987 Unknown [id number] 2.16.840.1.517657.3.579.2.594 1987 Unknown [id number] 2.16.840.1.073931.3.579.2.593 1987 Unknown [id number] 2.16.840.1.130289.3.579.2.593 1987 Unknown [id number] 2.16.840.1.376123.3.579.2.1259 1987 Unknown [id number] 2.16.840.1.372739.3.579.2.900 1987 Unknown [id number] 2.16.840.1.930150.3.579.2.900 1987 Unknown [id number] 2.16.840.1.173699.3.579.2.903 1987 Unknown [id number] 2.16.840.1.506587.3.579.2.903 1987 Unknown [id number] 2.16.840.1.424188.3.579.2.903 1987 Unknown [id number] 2.16.840.1.357280.3.579.2.903 1987 Unknown [id number] 2.16.840.1.929645.3.579.2.175 1987 Unknown [id number] 2.16.840.1.689549.3.579.2.903 1987 Unknown [id number] 2.16.840.1.232865.3.579.2.903 1987 Unknown [id number] 2.16.840.1.566325.3.579.2.903 1987 Unknown [id number] 2.16.840.1.223833.3.579.2.903 1987 Unknown [id number] 2.16.840.1.421944.3.579.2.903 1987 Unknown [id number] 2.16.840.1.706338.3.579.2.903 1987 Unknown [id number] 2.16.840.1.241365.3.579.2.903 1959 Unknown [id number] Social History Date Type Detail Facility Start: 04-10-2019 End: 01-18-2024 Tobacco smoking status ARIS Never smoker [facility] Start: 04-10-2019 End: 07-01-2020 Alcohol intake Lifetime non-drinker (finding) [facility] Start: 11-10-2018 History SDOH Alcohol Frequency 1 [facility] Start: 1985 Sex Assigned At Not on file [facility] Start: 11-20-2021 End: 07-27-2022 Exposure to SARS-CoV-2 (event) Not sure [facility] Start: 10-13-2021 End: 10-27-2022 Exposure to SARS-CoV-2 (event) Unable to assess [facility] Start: 04-23-2020 End: 01-18-2024 Tobacco use and exposure Never used [facility] Start: 07-29-2020 End: 04-17-2024 Alcohol intake Current drinker of alcohol (finding) [facility] Start: 07-29-2020 End: 08-29-2020 History SDOH Alcohol Frequency 2 [facility] Start: 07-29-2020 End: 08-29-2020 History SDOH Alcohol Std Drinks 99 [facility] Start: 06-26-2018 [facility] Start: 04-09-2019 End: 07-01-2020 Cigarette pack-years [facility] Start: 07-01-2020 End: 08-29-2020 Alcohol Use Disorder Identification Test - Consumption [AUDIT-C] [facility] How often to you hav e a drink containing alcohol? Monthly or less [facility] How many standard dr inks containing alcohol do you have on a typical day? Not asked [facility] Start: 01-17-2019 Gender identity Identifies as female gender (finding) [facility] Start: 01-17-2019 Sexual orientation Heterosexual (fin ding) [facility] Goals Date Patient Goal Desired Activity /State Personal health goal Comment on above: Formatting of this n ote might be different from the original. 04/14/21 Plan menus 3 days at a time. Log food in [employer]. Comment on above: Formatting of this n ote might be different from the original. 04/14/21 Plan menus 3 days at a time. Log food in [employer]. Clinical Notes 03-25-2021 to 05-16-2024 Betina Pop CNP - 04/17/2024 1:05 PM Trinity Boyer MA - 04/17/2024 11:37 AM EDTTelephone Encounter - Trinity Ball MA - 03/06/2024 10:05 AM EDTPatient Instructions Note Date & Type Note Facility 05-16-2024 Note Video Visit Patient: Aurora Mendez Date of : 1985 (38 y.o. female) PCP: Evi Pacheco MD Video Visit Consent Statement: I have communicated my name and active licensure. The patient's identity and physical location were verified at the time of this visit. Either the patient or their legal sales utility representative has been informed of the risks and benefits of -- and alternatives to -- treatment through virtual visit.. I discussed risks, benefits and alternatives of a real-time synchronous audiovisual consultation with the patient (and any accompanying persons) including the risks that the patient's personal health details and medical records will be discussed over real-time, synchronous, interactive video/audio/telecommunication technology, the visit will not be recorded without the express consent of both the provider and the patient, and that there are some limitations compared to [id number] evaluations. We elected to proceed. Chief Complaint Patient presents with Weight Loss Obesity Patient Start time: Stop time: Pt who is a Body mass index is 31.68 kg/m . Patient's history of diet, exercise, sleep, stress and appetite control reviewed and confirmed with patient, please see the emergency medical services coordinator's note. This is a telemedicine encounter. This visit has been fully reviewed with the patient and verbal consent has been obtained. NOATAK: Patient here today for recheck through the medical weight management program. Patient feels improvement with cravings and hunger since last visit. Energy levels are reasonable. Sleep is reasonable. Patient feels she is doing better with adhering to the diet and exercise protocols consistently but admits that she could increase her exercise. She is only walking maybe once a week. Medications were reviewed today and she states she feels improvement with symptoms now that she is taking all of her medications consistently. When I saw her last, she was very frustrated since her insurance no longer cover the tirzepatide. Due to this, she had weight gain and also was not taking her other medications. Now that she is taking all of her medications consistently again, she feels much better. She feels that she now has better control over her eating behaviors. She is down 4 pounds over this past month. Stress levels are reasonably managed. For the rest of the review of systems and exam see the EMR. ASSESSMENT: 1. Atypical eating disorder zonisamide (ZONEGRAN) 100 MG capsule buPROPion (WELLBUTRIN XL) 300 MG 24 hr tablet 2. Insulin resistance 3. Obesity, Class I, BMI 30-34.9 4. BMI 31.0-31.9,adult 5. Vitamin D deficiency 6. Vitamin B6 deficiency 7. Iron deficiency 8. Hypothyroidism (acquired) 9. Depression, unspecified depression type sertraline (ZOLOFT) 25 MG tablet Plan: Patient will continue with current dose of Wellbutrin as this really seems to be helping with volume control. She is also taking Zoloft at bedtime which also helps with her mood. When this is more stable, she has less reward eating tendencies. She will also continue with zonisamide for volume control and reward eating. I will trial an increase in dose to see if this better helps with symptoms since she is tolerating so well. I did discuss risk versus benefits. We also discussed really working on redirection techniques to help with any reward eating. She will also continue with Trulicity for glucose regulation secondary to insulin resistance, as well as volume control, as she is tolerating this well. She feels improvement since increasing to the 4.5 mg dose. Constipation seems to be resolved with use of senna S as needed for symptoms. She will also continue with vitamin supplementation due to history of deficiency. We also discussed working on meeting dietary targets throughout the day, especially protein to carbohydrate ratios, to better help with insulin resistance. I also encouraged Pt to continue working on exercise within orthopedics to help with muscle acquisition. I recommend getting at least 150 minutes of exercise per week and we discussed ways that she could incorporate this with her daily schedule. She states she will work on this. Patient will follow-up in 3 months or sooner if needed. This note was partially created using voice recognition software and is inherently subject to errors including those of syntax and sound-alike substitutions which may escape proofreading. In such instances, original meaning may be extrapolated by contextual derivation Medications reviewed with patient. The following portions of the patient's history were reviewed and updated as appropriate: allergies, current medications, past family history, past medical history, past social history, past surgical history and problem list . Review of Systems Constitutional: Positive for appetite change (ongoing, but some improvement). Negative for fatigue. HE (more content not included)... [facility] 04-17-2024 Note Video Visit Patient: Aurora Mendez Date of : 1985 (38 y.o. female) PCP: Evi Pacheco MD Video Visit Consent Statement: I have communicated my name and active licensure. The patient's identity and physical location were verified at the time of this visit. Either the patient or their legal sales utility representative has been informed of the risks and benefits of -- and alternatives to -- treatment through virtual visit.. I discussed risks, benefits and alternatives of a real-time synchronous audiovisual consultation with the patient (and any accompanying persons) including the risks that the patient's personal health details and medical records will be discussed over real-time, synchronous, interactive video/audio/telecommunication technology, the visit will not be recorded without the express consent of both the provider and the patient, and that there are some limitations compared to [id number] evaluations. We elected to proceed. Chief Complaint Patient presents with Obesity Weight Loss Patient Start time: Stop time: Pt who is a Body mass index is 32.35 kg/m . Patient's history of diet, exercise, sleep, stress and appetite control reviewed and confirmed with patient, please see the emergency medical services coordinator's note. This is a telemedicine encounter. This visit has been fully reviewed with the patient and verbal consent has been obtained. NOATAK: Patient here today for recheck through the medical weight management program. Patient admits to an increase in cravings and hunger since last visit. Energy levels are reasonable. Sleep is reasonable. Patient having trouble adhering to the diet and exercise protocols consistently. Medications were reviewed today and she states the hunger and cravings started since she has switched from Mounjaro to Trulicity. She also admits to sporadically taking her Wellbutrin and Zonisamide. Stress levels are reasonably managed. For the rest of the review of systems and exam see the EMR. ASSESSMENT: 1. Atypical eating disorder buPROPion (WELLBUTRIN XL) 300 MG 24 hr tablet zonisamide (ZONEGRAN) 50 MG capsule 2. Insulin resistance dulaglutide (Trulicity) 4.5 mg/0.5 mL Pen 3. Obesity, Class I, BMI 30-34.9 4. BMI 32.0-32.9,adult 5. Vitamin D deficiency 6. Vitamin B6 deficiency 7. Iron deficiency 8. Hypothyroidism (acquired) 9. Constipation, unspecified constipation type senna-docusate (SENNA-S) 8.6-50 mg Plan: I discussed with patient that it is very important that she gets back to taking her Wellbutrin every morning to better help with volume control. We also discussed getting back on her zonisamide daily to help with volume control and reward eating. I discussed risk versus benefits but that consistency of taking medication will help with symptoms. We discussed ways she could work on this. She will also continue with Trulicity for glucose regulation secondary to insulin resistance, as well as volume control. We will try and increase to the 4.5 mg dose to better help with symptoms. I did discuss risk versus benefits, as well as ways to mitigate side effects if needed. She has complained of some constipation since switching to Trulicity, so she will trial some senna S as needed for constipation symptoms. Patient will continue with vitamin supplementation due to history of deficiency. We discussed working on redirection techniques to help with reward eating. Patient is drinking at least two 20 ounce bottles of Pepsi daily, which is new from last appointment. We discussed stopping soda intake as this is causing her to have empty calories, as well as increased sugar and carbohydrates that is unnecessary. We discussed ways to help her titrate off of soda intake. She will continue to work on this and increase water intake. We also discussed working on meeting dietary targets throughout the day, especially protein to carbohydrate ratios, to better help with insulin resistance. I also encouraged Pt to continue working on exercise within orthopedics to help with muscle acquisition. Patient will follow-up in 4weeks or sooner if needed. This note was partially created using voice recognition software and is inherently subject to errors including those of syntax and sound-alike substitutions which may escape proofreading. In such instances, original meaning may be extrapolated by contextual derivation Medications reviewed with patient. The following portions of the patient's history were reviewed and updated as appropriate: allergies, current medications, past family history, past medical history, past social history, past surgical history and problem list . Review of Systems Constitutional: Positive for appetite change and unexpected weight change. Negative for fatigue. HENT: Negative. Eyes: Negative. Respiratory: Negative. Negative for shortness of breath. Cardiovascular: Negative. Negative for chest pain. Gastro (more content not included)... [facility] 04-17-2024 History of Present illness Narrative Video Visit Patient: Aurora Mendez Date of : 1985 (38 y.o. female) PCP: Evi Pacheco MD Video Visit Consent Statement: I have communicated my name and active licensure. The patient's identity and physical location were verified at the time of this visit. Either the patient or their legal sales utility representative has been informed of the risks and benefits of -- and alternatives to -- treatment through virtual visit.. I discussed risks, benefits and alternatives of a real-time synchronous audiovisual consultation with the patient (and any accompanying persons) including the risks that the patient s personal health details and medical records will be discussed over real-time, synchronous, interactive video/audio/telecommunication technology, the visit will not be recorded without the express consent of both the provider and the patient, and that there are some limitations compared to [id number] evaluations. We elected to proceed. Chief Complaint Patient presents with Obesity Weight Loss Patient Start time: Stop time: Pt who is a Body mass index is 32.35 kg/m . Patient's history of diet, exercise, sleep, stress and appetite control reviewed and confirmed with patient, please see the emergency medical services coordinator's note. This is a telemedicine encounter. This visit has been fully reviewed with the patient and verbal consent has been obtained. NOATAK: Patient here today for recheck through the medical weight management program. Patient admits to an increase in cravings and hunger since last visit. Energy levels are reasonable. Sleep is reasonable. Patient having trouble adhering to the diet and exercise protocols consistently. Medications were reviewed today and she states the hunger and cravings started since she has switched from Mounjaro to Trulicity. She also admits to sporadically taking her Wellbutrin and Zonisamide. Stress levels are reasonably managed. For the rest of the review of systems and exam see the EMR. ASSESSMENT: 1. Atypical eating disorder buPROPion (WELLBUTRIN XL) 300 MG 24 hr tablet zonisamide (ZONEGRAN) 50 MG capsule 2. Insulin resistance dulaglutide (Trulicity) 4.5 mg/0.5 mL Pen 3. Obesity, Class I, BMI 30-34.9 4. BMI 32.0-32.9,adult 5. Vitamin D deficiency 6. Vitamin B6 deficiency 7. Iron deficiency 8. Hypothyroidism (acquired) 9. Constipation, unspecified constipation type senna-docusate (SENNA-S) 8.6-50 mg Plan: I discussed with patient that it is very important that she gets back to taking her Wellbutrin every morning to better help with volume control. We also discussed getting back on her zonisamide daily to help with volume control and reward eating. I discussed risk versus benefits but that consistency of taking medication will help with symptoms. We discussed ways she could work on this. She will also continue with Trulicity for glucose regulation secondary to insulin resistance, as well as volume control. We will try and increase to the 4.5 mg dose to better help with symptoms. I did discuss risk versus benefits, as well as ways to mitigate side effects if needed. She has complained of some constipation since switching to Trulicity, so she will trial some senna S as needed for constipation symptoms. Patient will continue with vitamin supplementation due to history of deficiency. We discussed working on redirection techniques to help with reward eating. Patient is drinking at least two 20 ounce bottles of Pepsi daily, which is new from last appointment. We discussed stopping soda intake as this is causing her to have empty calories, as well as increased sugar and carbohydrates that is unnecessary. We discussed ways to help her titrate off of soda intake. She will continue to work on this and increase water intake. We also discussed working on meeting dietary targets throughout the day, especially protein to carbohydrate ratios, to better help with insulin resistance. I also encouraged Pt to continue working on exercise within orthopedics to help with muscle acquisition. Patient will follow-up in 4 weeks or sooner if needed. This note was partially created using voice recognition software and is inherently subject to errors including those of syntax and sound-alike substitutions which may escape proofreading. In such instances, original meaning may be extrapolated by contextual derivation Medications reviewed with patient. The following portions of the patient's history were reviewed and updated as appropriate: allergies, current medications, past family history, past medical history, past social history, past surgical history and problem list . Review of Systems Constitutional: Positive for appetite change and unexpected weight change. Negative for fatigue. HENT: Negative. Eyes: Negative. Respiratory: Negative. Negative for shortness of breath. Cardiovascular: Negative. Negative for chest pain. Gastrointestinal: Positive for constipation. Negative for abdominal pain, diarrhea, nausea and vomiting. Endocrine: Negative. Genitourinary: Negative. Musculoskeletal: Negative. Skin: Negative. Allergic/Immunologic: Negative. Neurological: Negative. Hematological: Negative. Psychiatric/Behavioral: Negative. Negative for agitation, behavioral problems, dysphoric mood and sleep disturbance. The patient is not nervous/anxious. Past Medical History: Diagnosis Date Anxiety Asthma Depression Disease of thyroid gland hypothyroid Hodgkin's lymphoma (HCC) 09/2011 Lymphoma, Hodgkin's (HCC) Preeclampsia previous Social History Socioeconomic History Marital status: Tobacco Use Smoking status: Never Smokeless tobacco: Never Vaping Use Vaping status: Never Used Substance and Sexual Activity Alcohol use: Yes Drug use: Never Sexual activity: Yes Partners: Male Current Outpatient Medications Medication Sig Dispense Refill albuterol 90 mcg/actuation inhaler Inhale 2 (two) puffs every 6 (six) hours as needed for shortness of breath or cough . 18 g 0 budesonide-formoteroL (Symbicort) 80-4.5 mcg/actuation inhaler Inhale 2 (two) puffs 2 (two) times a day . 1 each 2 buPROPion (WELLBUTRIN XL) 300 MG 24 hr tablet Take 1 (one) tablet (300 mg total) by mouth daily . 30 tablet 2 cyanocobalamin, vitamin B-12, 1,[address] 1 (one) tablet (1,000 mcg total) under the tongue daily . 30 tablet 2 dulaglutide (Trulicity) 3 mg/0.5 mL Pen Inject 0.5 mL (3 mg total) under the skin every 7 days . 2 mL 2 dulaglutide (Trulicity) 4.5 mg/0.5 mL Pen Inject 0.5 mL (4.5 mg total) under the skin every 7 days . 2 mL 5 ergocalciferol (ERGOCALCIFEROL) 1,250 mcg (50,000 unit) capsule Take 1 (one) capsule (50,000 Units total) by mouth twice weekly Take with 500mg vitamin c and fatty meal . 8 capsule 1 ferrous sulfate 325 (65 FE) MG tablet Take 1 (one) tablet (325 mg total) by mouth every other day Take with 500mg of vitamin c . 15 tablet 1 furosemide (LASIX) 20 MG tablet Take 1 (one) tablet (20 mg total) by mouth daily as needed Reasons: visible water retention. inhaler, assist devices ([employer]) Spcr As directed . 1 each 0 levothyroxine (SYNTHROID, LEVOTHROID) 150 MCG tablet Take 1 (one) tablet (150 mcg total) by mouth once daily . 30 tablet 1 ondansetron (ZOFRAN-ODT) 4 MG disintegrating tablet Dissolve 1 (one) tablet (4 mg total) on top of tongue every 8 (eight) hours as needed for nausea . 20 tablet 0 pyridoxine, vitamin B6, (vitamin B-6) 25 MG tablet Take 1 (one) tablet (25 mg total) by mouth daily . 30 tablet 2 senna-docusate (SENNA-S) 8.6-50 mg Take 1 (one) tablet by mouth daily . 30 tablet 5 sertraline (ZOLOFT) 25 MG tablet Take 1 (one) tablet (25 mg total) by mouth nightly . 30 tablet 2 zonisamide (ZONEGRAN) 50 MG capsule Take 1 (one) capsule (50 mg total) by mouth once daily Take in evening . 30 capsule 2 No current facility-administered medications for this visit. Problem List Items Addressed This Visit Other Atypical eating disorder - Primary Relevant Medications buPROPion (WELLBUTRIN XL) 300 MG 24 hr tablet zonisamide (ZONEGRAN) 50 MG capsule Other Visit Diagnoses Insulin resistance Relevant Medications dulaglutide (Trulicity) 4.5 mg/0.5 mL Pen Obesity, Class I, BMI 30-34.9 BMI 32.0-32.9,adult Vitamin D deficiency Vitamin B6 deficiency Iron deficiency Hypothyroidism (acquired) Constipation, unspecified constipation type Relevant Medications senna-docusate (SENNA-S) 8.6-50 mg Continue the currently prescribed calorie load and composition. Return in about 6 weeks (around 05/29/2024) for Follow Up. Total Visit Time: minutes more than 50% of the time face to face discussing findings and coordinating care regarding medication management and education for disease processes and treatment protocol. Provider Location: [facility] [address] [facility] [id number] Patient Location: [facility] [address] [facility] [address] [facility] [address] tiffany Sellers Weight Management Diet Questionnaire Question 04/17/2024 11:33 AM EDT - Filed by Patient MEAL PLAN QUESTIONS Breakfast Eggs, sausage/light, cereal, pancakes Lunch Anthony, salad, pizza, hamburger, chicken Dinner Pork chops, hamburger, chicken, spaghetti, mac n cheese, veggie, sloppy kanwal, fries, pot pie Number of snacks per day? 4 LIQUID INTAKE QUESTIONS What do you usually drink? Water Coffee Juice Pop What type of alcohol do you drink? None How many drinks per week? 0 PHYSICAL ACTIVITY QUESTIONS What are you currently doing - physical activity or exercise? Biking, walking, yoga, squats, crunches How many times per week? 2 How long do you exercise at each session? 15 minutes Any limitations you are currently having affecting your activity or exercise? Fatigue Appetite and Energy Level Questions Is your appetite well controlled at this time? No Are your energy levels fairly good at this time? No QUALITY OF SLEEP QUESTIONS Are you sleeping well at this time? No How many hours of sleep per night? 5 Do you feel rested when you wake up in the morning? No Do you have sleep apnea? No STRESS LEVEL QUESTIONS What is the level of stress in your life currently? On the scale of 1 to 10, 10 being the most stressed. 6 How is your general mood ? OK PATIENT MEDICATION QUESTIONS Are you currently taking any medications for your weight? Yes If yes, are you having any problems with these medications? No Most recent weight? 194.4 Most recent Blood Pressure? 100/72 documented in this encounter [facility] 03-06-2024 Telephone encounter Note JAMES 01/17JUN 22 Requested Prescriptions Pending Prescriptions Disp Refills tirzepatide (Mounjaro) 15 mg/0.5 mL Pen 2 mL 5 Sig: Inject 0.5 mL (15 mg total) under the skin every 7 days . [facility] 03-06-2024 Miscellaneous Notes JAMES 01/17JUN 22 Requested Prescriptions Pending Prescriptions Disp Refills tirzepatide (Mounjaro) 15 mg/0.5 mL Pen 2 mL 5 Sig: Inject 0.5 mL (15 mg total) under the skin every 7 days . documented in this encounter [facility] 01-18-2024 History of Present illness Narrative [facility] Weight Management Diet Questionnaire Question 01/18/2024 10:22 AM EDT - Filed by Patient MEAL PLAN QUESTIONS Breakfast Eggs light/sausage Lunch Chicken, salad, eggs, pizza Dinner Chicken, pork chops, hamburger, veggie Number of snacks per day? 1 LIQUID INTAKE QUESTIONS What do you usually drink? Water Coffee Juice Pop What type of alcohol do you drink? None How many drinks per week? 0 PHYSICAL ACTIVITY QUESTIONS What are you currently doing - physical activity or exercise? Walking How many times per week? 2 How long do you exercise at each session? 30 minutes Any limitations you are currently having affecting your activity or exercise? No Appetite and Energy Level Questions Is your appetite well controlled at this time? Yes Are your energy levels fairly good at this time? Yes QUALITY OF SLEEP QUESTIONS Are you sleeping well at this time? No How many hours of sleep per night? 5 Do you feel rested when you wake up in the morning? No Do you have sleep apnea? No STRESS LEVEL QUESTIONS What is the level of stress in your life currently? On the scale of 1 to 10, 10 being the most stressed. 8 How is your general mood ? OK PATIENT MEDICATION QUESTIONS Are you currently taking any medications for your weight? Yes If yes, are you having any problems with these medications? No Most recent weight? 167.9 Most recent Blood Pressure? 115/70 Chief Complaint Patient presents with Obesity Weight Loss NOATAK: Pt who is a Body mass index is 27.82 kg/m . Patient's history of diet, exercise, sleep, stress and appetite control reviewed and confirmed with patient, please see the emergency medical services coordinator's note. HPI: Patient here today for recheck through the medical weight management program. Patient denies any increase in cravings or hunger. Energy levels are reasonable. Sleep is reasonable. Patient feels she is able to adhere to the diet and exercise protocols as ordered. She states she is getting excited because she has bottled gym membership so she plans to start going to the gym for exercise now too. Medications were reviewed today and no problems noted. Stress levels are reasonably managed. For the rest of the review of systems and exam see the EMR. Impression: 1. Atypical eating disorder, 2. Insulin resistance, 3. Overweight, 4. BMI 27.0-27.9, 5. Vitamin D deficiency, 6. Vitamin B6 deficiency, 7. Iron deficiency Plan: Patient will continue with Wellbutrin for volume control as she continues to do well with medication. She will also continue with zonisamide for volume control and reward eating as this is also working well for her. Patient will also continue with current dose of tirzepatide for glucose regulation secondary to insulin resistance, volume control and continued weight loss/maintenance as she also continues to tolerate this medication well. Patient will continue with vitamin and iron supplementation due to history of deficiency. We also discussed working on meeting dietary targets throughout the day, especially protein to carbohydrate ratios, to better help with insulin resistance. We also discussed continuing to work on redirection techniques to help with any reward eating. I also encouraged Pt to continue working on exercise within orthopedics to help with muscle acquisition. Patient will follow-up in 2 to 3 months or sooner if needed. This note was partially created using voice recognition software and is inherently subject to errors including those of syntax and sound-alike substitutions which may escape proofreading. In such instances, original meaning may be extrapolated by contextual derivation Medications reviewed with patient. The following portions of the patient's history were reviewed and updated as appropriate: allergies, current medications, past family history, past medical history, past social history, past surgical history and problem list . Review of Systems Constitutional: Negative. Negative for appetite change and fatigue. HENT: Negative. Eyes: Negative. Respiratory: Negative. Negative for shortness of breath. Cardiovascular: Negative. Negative for chest pain. Gastrointestinal: Negative. Negative for abdominal pain, constipation, diarrhea, nausea and vomiting. Endocrine: Negative. Genitourinary: Negative. Musculoskeletal: Negative. Skin: Negative. Allergic/Immunologic: Negative. Neurological: Negative. Hematological: Negative. Psychiatric/Behavioral: Negative. Negative for agitation, behavioral problems, dysphoric mood and sleep disturbance. The patient is not nervous/anxious. Past Medical History: Diagnosis Date Anxiety Asthma Depression Disease of thyroid gland hypothyroid Hodgkin's lymphoma (HCC) 09/2011 Lymphoma, Hodgkin's (HCC) Preeclampsia previous Social History Socioeconomic History Marital status: Tobacco Use Smoking status: Never Smokeless tobacco: Never Vaping Use Vaping Use: Never used Substance and Sexual Activity Alcohol use: Yes Drug use: Never Sexual activity: Yes Partners: Male Current Outpatient Medications Medication Sig Dispense Refill albuterol 90 mcg/actuation inhaler Inhale 2 (two) puffs every 6 (six) hours as needed for shortness of breath or cough . 18 g 0 budesonide-formoteroL (Symbicort) 80-4.5 mcg/actuation inhaler Inhale 2 (two) puffs 2 (two) times a day . 1 each 2 cyanocobalamin, vitamin B-12, 1,[address] 1 (one) tablet (1,000 mcg total) under the tongue daily . 30 tablet 2 ergocalciferol (ERGOCALCIFEROL) 1,250 mcg (50,000 unit) capsule Take 1 (one) capsule (50,000 Units total) by mouth twice weekly Take with 500mg vitamin c and fatty meal . 8 capsule 1 ferrous sulfate 325 (65 FE) MG tablet Take 1 (one) tablet (325 mg total) by mouth every other day Take with 500mg of vitamin c . 15 tablet 1 furosemide (LASIX) 20 MG tablet Take 1 (one) tablet (20 mg total) by mouth daily as needed Reasons: visible water retention. inhaler, assist devices (OPTICHAMBER ADVANTAGE) Spcr As directed . 1 each 0 levothyroxine (SYNTHROID, LEVOTHROID) 150 MCG tablet Take 1 (one) tablet (150 mcg total) by mouth once daily . 30 tablet 1 ondansetron (ZOFRAN-ODT) 4 MG disintegrating tablet Dissolve 1 (one) tablet (4 mg total) on top of tongue every 8 (eight) hours as needed for nausea . 20 tablet 0 pyridoxine, vitamin B6, (vitamin B-6) 25 MG tablet Take 1 (one) tablet (25 mg total) by mouth daily . 30 tablet 2 sertraline (ZOLOFT) 25 MG tablet Take 1 (one) tablet (25 mg total) by mouth nightly . 30 tablet 2 tirzepatide (Mounjaro) 15 mg/0.5 mL Pen Inject 0.5 mL (15 mg total) under the skin every 7 days . 2 mL 5 buPROPion (WELLBUTRIN XL) 300 MG 24 hr tablet Take 1 (one) tablet (300 mg total) by mouth daily . 30 tablet 2 zonisamide (ZONEGRAN) 50 MG capsule Take 1 (one) capsule (50 mg total) by mouth once daily Take in evening . 30 capsule 2 No current facility-administered medications for this visit. BP 101/69 Pulse 97 Ht 5' 5 (1.651 m) Wt 75.8 kg (167 lb 3.2 oz) SpO2 99% BMI 27.82 kg/m Physical Exam Vitals and nursing note reviewed. Constitutional: General: She is not in acute distress. Appearance: Normal appearance. She is not ill-appearing, toxic-appearing or diaphoretic. Cardiovascular: Rate and Rhythm: Normal rate and regular rhythm. Heart sounds: Normal heart sounds. Pulmonary: Effort: Pulmonary effort is normal. No respiratory distress. Breath sounds: Normal breath sounds. No stridor. No wheezing, rhonchi or rales. Chest: Chest wall: No tenderness. Neurological: General: No focal deficit present. Mental Status: She is alert and oriented to person, place, and time. Psychiatric: Mood and Affect: Mood normal. Behavior: Behavior normal. Thought Content: Thought content normal. Judgment: Judgment normal. Problem List Items Addressed This Visit Other Atypical eating disorder - Primary Relevant Medications buPROPion (WELLBUTRIN XL) 300 MG 24 hr tablet zonisamide (ZONEGRAN) 50 MG capsule Other Visit Diagnoses Insulin resistance Overweight (BMI 25.0-29.9) BMI 27.0-27.9,adult Vitamin D deficiency Vitamin B6 deficiency Iron deficiency Continue the currently prescribed calorie load and composition. Return in about 2 months (around 03/19/2024) for Follow Up. Counseling Time: minutes more than 50% of the time face to face discussing findings and coordinating care regarding medication management and education for disease processes and treatment protocol. Discussed elevated Body Mass Index (BMI): Advised regular exercise. Discussed elevated Body Mass Index (BMI): Advised healthy and appropriate diet. Discussed elevated Body Mass Index (BMI): Nutrition referral. Discussed elevated Body Mass Index (BMI): Reviewed high BMI, BMI is not an accurate measurement of obesity for this patient. Rationale: Overweight (Findings) BMI documented in this encounter [facility] 01-18-2024 Note Chief Complaint Patient presents with - Obesity - Weight Loss NOATAK: Pt who is a Body mass index is 27.82 kg/m . Patient's history of diet, exercise, sleep, stress and appetite control reviewed and confirmed with patient, please see the emergency medical services coordinator's note. HPI: Patient here today for recheck through the medical weight management program. Patient denies any increase in cravings or hunger. Energy levels are reasonable. Sleep is reasonable. Patient feels she is able to adhere to the diet and exercise protocols as ordered. She states she is getting excited because she has bottled gym membership so she plans to start going to the gym for exercise now too. Medications were reviewed today and no problems noted. Stress levels are reasonably managed. For the rest of the review of systems and exam see the EMR. Impression: 1. Atypical eating disorder, 2. Insulin resistance, 3. Overweight, 4. BMI 27.0-27.9, 5. Vitamin D deficiency, 6. Vitamin B6 deficiency, 7. Iron deficiency Plan: Patient will continue with Wellbutrin for volume control as she continues to do well with medication. She will also continue with zonisamide for volume control and reward eating as this is also working well for her. Patient will also continue with current dose of tirzepatide for glucose regulation secondary to insulin resistance, volume control and continued weight loss/maintenance as she also continues to tolerate this medication well. Patient will continue with vitamin and iron supplementation due to history of deficiency. We also discussed working on meeting dietary targets throughout the day, especially protein to carbohydrate ratios, to better help with insulin resistance. We also discussed continuing to work on redirection techniques to help with any reward eating. I also encouraged Pt to continue working on exercise within orthopedics to help with muscle acquisition. Patient will follow-up in 2 to 3 months or sooner if needed. This note was partially created using voice recognition software and is inherently subject to errors including those of syntax and sound-alike substitutions which may escape proofreading. In such instances, original meaning may be extrapolated by contextual derivation Medications reviewed with patient. The following portions of the patient's history were reviewed and updated as appropriate: allergies, current medications, past family history, past medical history, past social history, past surgical history and problem list . Review of Systems Constitutional: Negative. Negative for appetite change and fatigue. HENT: Negative. Eyes: Negative. Respiratory: Negative. Negative for shortness of breath. Cardiovascular: Negative. Negative for chest pain. Gastrointestinal: Negative. Negative for abdominal pain, constipation, diarrhea, nausea and vomiting. Endocrine: Negative. Genitourinary: Negative. Musculoskeletal: Negative. Skin: Negative. Allergic/Immunologic: Negative. Neurological: Negative. Hematological: Negative. Psychiatric/Behavioral: Negative. Negative for agitation, behavioral problems, dysphoric mood and sleep disturbance. The patient is not nervous/anxious. Past Medical History: Diagnosis Date - Anxiety - Asthma - Depression - Disease of thyroid gland hypothyroid - Hodgkin's lymphoma (HCC) 09/2011 - Lymphoma, Hodgkin's (HCC) - Preeclampsia previous Social History Socioeconomic History - Marital status: Tobacco Use - Smoking status: Never - Smokeless tobacco: Never Vaping Use - Vaping Use: Never used Substance and Sexual Activity - Alcohol use: Yes - Drug use: Never - Sexual activity: Yes Partners: Male Current Outpatient Medications Medication Sig Dispense Refill - albuterol 90 mcg/actuation inhaler Inhale 2 (two) puffs every 6 (six) hours as needed for shortness of breath or cough . 18 g 0 - budesonide-formoteroL (Symbicort) 80-4.5 mcg/actuation inhaler Inhale 2 (two) puffs 2 (two) times a day . 1 each 2 - cyanocobalamin, vitamin B-12, 1,[address] 1 (one) tablet (1,000 mcg total) under the tongue daily . 30 tablet 2 - ergocalciferol (ERGOCALCIFEROL) 1,250 mcg (50,000 unit) capsule Take 1 (one) capsule (50,000 Units total) by mouth twice weekly Take with 500mg vitamin c and fatty meal . 8 capsule 1 - ferrous sulfate 325 (65 FE) MG tablet Take 1 (one) tablet (325 mg total) by mouth every other day Take with 500mg of vitamin c . 15 tablet 1 - furosemide (LASIX) 20 MG tablet Take 1 (one) tablet (20 mg total) by mouth daily as needed Reasons: visible water retention. - inhaler, assist devices (OPTICHAMBER ADVANTAGE) Spcr As directed . 1 each 0 - levothyroxine (SYNTHROID, LEVOTHROID) 150 MCG tablet Take 1 (one) tablet (150 mcg total) by mouth once daily . 30 tablet 1 - ondansetron (ZOFRAN-ODT) 4 MG disintegrating tablet Dissolve 1 (one) tablet (4 mg total) on top of tongue every 8 (more content not included)... [facility] 11-18-2023 Telephone encounter Note [facility] 11/02 Requesting a pharmacy - change Requested Prescriptions Pending Prescriptions Disp Refills tirzepatide (Mounjaro) 15 mg/0.5 mL Pen 2 mL 5 Sig: Inject 0.5 mL (15 mg total) under the skin every 7 days . [facility] 11-18-2023 Miscellaneous Notes [facility] 11/02 Requesting a pharmacy - change Requested Prescriptions Pending Prescriptions Disp Refills tirzepatide (Mounjaro) 15 mg/0.5 mL Pen 2 mL 5 Sig: Inject 0.5 mL (15 mg total) under the skin every 7 days . documented in this encounter [facility] 11-03-2023 History of Present illness Narrative Video Visit Patient: Aurora Mendez Date of : 1985 (38 y.o. female) PCP: Evi Pacheco MD Video Visit Consent Statement: I have communicated my name and active licensure. The patient's identity and physical location were verified at the time of this visit. Either the patient or their legal sales utility representative has been informed of the risks and benefits of -- and alternatives to -- treatment through virtual visit.. I discussed risks, benefits and alternatives of a real-time synchronous audiovisual consultation with the patient (and any accompanying persons) including the risks that the patient s personal health details and medical records will be discussed over real-time, synchronous, interactive video/audio/telecommunication technology, the visit will not be recorded without the express consent of both the provider and the patient, and that there are some limitations compared to [id number] evaluations. We elected to proceed. Chief Complaint Patient presents with Obesity Weight Loss Patient Start time: Stop time: Pt who is a Body mass index is 27.29 kg/m . Patient's history of diet, exercise, sleep, stress and appetite control reviewed and confirmed with patient, please see the emergency medical services coordinator's note. This is a telemedicine encounter. This visit has been fully reviewed with the patient and verbal consent has been obtained. NOATAK: Patient here today for recheck through the medical weight management program. Patient denies any increase in cravings or hunger since last appointment. Energy levels are improving. Sleep is improving. She feels less need to nap during the day now. Patient feels she is better able to adhere to the dietary protocols as ordered and is working on eating more regularly and increasing protein throughout the day. She has also been more active and incorporating exercise into her regimen. She states that she is getting an elliptical within the next month as well. Medications were reviewed today and no problems noted. Stress levels are reasonably managed. For the rest of the review of systems and exam see the EMR. ASSESSMENT: 1. Atypical eating disorder 2. Insulin resistance 3. Overweight (BMI 25.0-29.9) 4. BMI 27.0-27.9,adult 5. Vitamin D deficiency 6. Vitamin B6 deficiency 7. Iron deficiency 8. Hypothyroidism (acquired) 9. Depression, unspecified depression type Plan: Patient will continue with Wellbutrin for volume control and zonisamide for volume control and reward eating as she continues to tolerate both medications well. She will also continue with tirzepatide used for glucose regulation secondary to insulin resistance, volume control and continued weight loss as she tolerates medication well. She will continue follow-up with her PCP for hypothyroidism. Patient will continue with vitamin supplementation due to history of deficiency. We discussed continuing to work on redirection techniques to help with any reward eating if needed. We also discussed working on meeting dietary targets throughout the day, especially protein to carbohydrate ratios, to better help with insulin resistance. I also encouraged Pt to continue working on exercise within orthopedics to help with muscle acquisition. Patient will follow-up in office in 8 weeks or sooner if needed. This note was partially created using voice recognition software and is inherently subject to errors including those of syntax and sound-alike substitutions which may escape proofreading. In such instances, original meaning may be extrapolated by contextual derivation Medications reviewed with patient. The following portions of the patient's history were reviewed and updated as appropriate: allergies, current medications, past family history, past medical history, past social history, past surgical history and problem list . Review of Systems Constitutional: Negative for appetite change and fatigue (improving). HENT: Negative. Eyes: Negative. Respiratory: Negative. Negative for shortness of breath. Cardiovascular: Negative. Negative for chest pain. Gastrointestinal: Negative. Negative for abdominal pain, constipation, diarrhea, nausea and vomiting. Endocrine: Negative. Genitourinary: Negative. Musculoskeletal: Negative. Skin: Negative. Allergic/Immunologic: Negative. Neurological: Negative. Hematological: Negative. Psychiatric/Behavioral: Negative. Negative for agitation, behavioral problems, dysphoric mood and sleep disturbance. The patient is not nervous/anxious. Past Medical History: Diagnosis Date Anxiety Asthma Depression Disease of thyroid gland hypothyroid Hodgkin's lymphoma (HCC) 09/2011 Lymphoma, Hodgkin's (HCC) Preeclampsia previous Social History Socioeconomic History Marital status: Tobacco Use Smoking status: Never Smokeless tobacco: Never Vaping Use Vaping Use: Never used Substance and Sexual Activity Alcohol use: Yes Drug use: Never Sexual activity: Yes Partners: Male Current Outpatient Medications Medication Sig Dispense Refill albuterol 90 mcg/actuation inhaler Inhale 2 (two) puffs every 6 (six) hours as needed for shortness of breath or cough . 18 g 0 budesonide-formoteroL (Symbicort) 80-4.5 mcg/actuation inhaler Inhale 2 (two) puffs 2 (two) times a day . 1 each 2 buPROPion (WELLBUTRIN XL) 300 MG 24 hr tablet Take 1 (one) tablet (300 mg total) by mouth daily . 30 tablet 2 cyanocobalamin, vitamin B-12, 1,[address] 1 (one) tablet (1,000 mcg total) under the tongue daily . 30 tablet 2 ergocalciferol (ERGOCALCIFEROL) 1,250 mcg (50,000 unit) capsule Take 1 (one) capsule (50,000 Units total) by mouth twice weekly Take with 500mg vitamin c and fatty meal . 8 capsule 1 ferrous sulfate 325 (65 FE) MG tablet Take 1 (one) tablet (325 mg total) by mouth every other day Take with 500mg of vitamin c . 15 tablet 1 furosemide (LASIX) 20 MG tablet Take 1 (one) tablet (20 mg total) by mouth 2 (two) times a day Reasons: visible water retention. inhaler, assist devices (OPTICHAMBER ADVANTAGE) Spcr As directed . 1 each 0 levothyroxine (SYNTHROID, LEVOTHROID) 150 MCG tablet Take 1 (one) tablet (150 mcg total) by mouth once daily . 30 tablet 1 ondansetron (ZOFRAN-ODT) 4 MG disintegrating tablet Dissolve 1 (one) tablet (4 mg total) on top of tongue every 8 (eight) hours as needed for nausea . 20 tablet 0 pyridoxine, vitamin B6, (vitamin B-6) 25 MG tablet Take 1 (one) tablet (25 mg total) by mouth daily . 30 tablet 2 sertraline (ZOLOFT) 25 MG tablet Take 1 (one) tablet (25 mg total) by mouth nightly . 30 tablet 2 tirzepatide (Mounjaro) 15 mg/0.5 mL Pen Inject 0.5 mL (15 mg total) under the skin every 7 days . 2 mL 5 zonisamide (ZONEGRAN) 50 MG capsule Take 1 (one) capsule (50 mg total) by mouth once daily Take in evening . 30 capsule 2 No current facility-administered medications for this visit. Problem List Items Addressed This Visit Other Atypical eating disorder - Primary Other Visit Diagnoses Insulin resistance Overweight (BMI 25.0-29.9) BMI 27.0-27.9,adult Vitamin D deficiency Vitamin B6 deficiency Iron deficiency Hypothyroidism (acquired) Depression, unspecified depression type Continue the currently prescribed calorie load and composition. Return in about 2 months (around 01/03/2024) for Follow Up. Total Visit Time: minutes more than 50% of the time face to face discussing findings and coordinating care regarding medication management and education for disease processes and treatment protocol. Provider Location: [facility] [address] [facility] [id number] Patient Location: [address] [facility] [address] [facility] [address] [address] [place] Weight Management Diet Questionnaire Question 11/03/2023 7:56 AM EDT - Filed by Patient 09/01/2023 8:23 AM EDT - Filed by Patient 07/12/2023 2:43 PM EDT - Filed by Patient MEAL PLAN QUESTIONS Breakfast Eggs, light/sausage Eggs, toast, light/sausage Eggs, light/sausage Lunch Eggs, pizza, chicken, rice, burger Pizza, sandwich, chicken, leftover dinners Nothing or sandwich, leftover dinners, pizza, veggies & dip Dinner Pork/chicken/hamburger, vegetable, salad, pizza Pork chops, burgers, chicken, veggie Pork chop/chicken/ribs/hamburger, broccoli/corn/potato/carrots, mac n cheese/rice Number of snacks per day? 2 2 2 LIQUID INTAKE QUESTIONS What do you usually drink? Water Water Water Juice Tea Juice Pop Coffe Pop Juice Pop What type of alcohol do you drink? None None None How many drinks per week? 0 0 0 PHYSICAL ACTIVITY QUESTIONS What are you currently doing - physical activity or exercise? Occasional walking, exercise apps doing pilates, squats, crunches Walking or squats, crunches Cleaning, walking sometimes How many times per week? 3 3 3 How long do you exercise at each session? 10-15 minutes 5-10 15 Any limitations you are currently having affecting your activity or exercise? Fatigue/tiredness, stress Fatigue Fatigue Appetite and Energy Level Questions Is your appetite well controlled at this time? Yes Yes No Are your energy levels fairly good at this time? No No No QUALITY OF SLEEP QUESTIONS Are you sleeping well at this time? No No No How many hours of sleep per night? 5 5 5 Do you feel rested when you wake up in the morning? No No No Do you have sleep apnea? No No No STRESS LEVEL QUESTIONS What is the level of stress in your life currently? On the scale of 1 to 10, 10 being the most stressed. 7 5 6 How is your general mood ? OK OK OK PATIENT MEDICATION QUESTIONS Are you currently taking any medications for your weight? Yes Yes Yes If yes, are you having any problems with these medications? No No No Most recent weight? 164 170 174 Most recent Blood Pressure? 110/70 100/60 118/76 Questionnaire Submission documented in this encounter [facility] 01-18-2024 Instructions Betina Pop, LATONIA - 09/01/2023 9:19 AM EST List of High-Protein Foods and Amount of Protein in Each Foods High in Protein Shortcut: 1 ounce of un-breaded meat chicken or fish has approximately 7 grams of protein. 3 oz meat (size of a deck of cards) has approximately 21 g protein. Beef Hamburger tani, 4 oz - 28 grams protein Steak, 6 oz - 42 grams Most cuts of beef - 7 grams of protein per ounce Chicken Chicken breast, 3.5 oz - 30 grams protein Chicken thigh - 10 grams (for average size) Drumstick - 11 grams Wing - 6 grams Chicken meat, cooked, 4 oz - 35 grams Fish Most fish fillets or steaks are about 22 grams of protein for 3 oz (100 grams) of cooked fish, or 6 grams per ounce of cooked fish Tuna, 6 oz can - 40 grams of protein Pork Pork chop, average - 22 grams protein Pork loin or tenderloin, 4 oz - 29 grams Ham, 3 oz serving - 19 grams Ground pork, 1 oz raw - 5 grams; 3 oz cooked - 22 grams Light, 1 slice - 3 grams Cross-style light (back light), slice - 5 - 6 grams Eggs and Dairy Egg, large - 6 grams protein Milk, 1 cup - 8 grams Cottage cheese, cup - 15 grams Yogurt, 1 cup - usually 8-12 grams, check label Soft cheeses (Mozzarella, Brie, Camembert) - 6 grams per oz Medium cheeses (Cheddar, Sierra Leonean) - 7 or 8 grams per oz Hard cheeses (Parmesan) - 10 grams per oz Beans (including soy) Tofu, cup 20 grams protein Tofu, 1 oz, 2.3 grams Soy milk, 1 cup - 6 -10 grams Most beans (black, franklin, lentils, etc) about 7-10 grams protein per half cup of cooked beans Soy beans, cup cooked - 14 grams protein Split peas, cup cooked - 8 grams Genoa 3 oz - 18 g protein Nuts and Seeds Peanut butter, 2 Tablespoons - 8 grams protein Almonds, cup - 8 grams Peanuts, cup - 9 grams Cashews, cup - 5 grams Pecans, cup - 2.5 grams Kirwin seeds, cup - 6 grams Pumpkin seeds, cup - 8 grams Flax seeds - cup - 8 grams documented in this encounter [facility] 09-01-2023 History of Present illness Narrative Video Visit Patient: Aurora Mendez Date of : 1985 (38 y.o. female) PCP: Evi Pacheco MD Video Visit Consent Statement: I have communicated my name and active licensure. The patient's identity and physical location were verified at the time of this visit. Either the patient or their legal sales utility representative has been informed of the risks and benefits of -- and alternatives to -- treatment through virtual visit.. I discussed risks, benefits and alternatives of a real-time synchronous audiovisual consultation with the patient (and any accompanying persons) including the risks that the patient s personal health details and medical records will be discussed over real-time, synchronous, interactive video/audio/telecommunication technology, the visit will not be recorded without the express consent of both the provider and the patient, and that there are some limitations compared to [id number] evaluations. We elected to proceed. Chief Complaint Patient presents with Obesity Weight Loss Patient Start time: Stop time: Pt who is a Body mass index is 28.29 kg/m . Patient's history of diet, exercise, sleep, stress and appetite control reviewed and confirmed with patient, please see the emergency medical services coordinator's note. This is a telemedicine encounter. This visit has been fully reviewed with the patient and verbal consent has been obtained. NOATAK: Patient here today for recheck through the medical weight management program. Patient denies any increase in cravings or hunger since last appointment. Energy levels are not at goal but she states this is chronic for her. Overall, she does feel improvement with this. Sleep is fair. She feels overall she sleeps pretty well but has trouble sleeping when she naps during the day. Patient feels she is able to adhere to the dietary protocols as ordered and is trying to work on incorporating more exercise into her day. Medications were reviewed today and no problems noted. Stress levels are reasonably managed. She states she did follow-up with her PCP last week and she will be having some follow-up lab work completed to recheck her thyroid but otherwise things are looking good. For the rest of the review of systems and exam see the EMR. ASSESSMENT: 1. Atypical eating disorder buPROPion (WELLBUTRIN XL) 300 MG 24 hr tablet zonisamide (ZONEGRAN) 50 MG capsule 2. Insulin resistance 3. Overweight (BMI 25.0-29.9) 4. BMI 28.0-28.9,adult 5. Vitamin D deficiency 6. Vitamin B6 deficiency 7. Iron deficiency 8. Hypothyroidism (acquired) Plan: Patient will continue with Wellbutrin for volume control and zonisamide for volume control and reward eating as she is tolerating both medications well. She will also continue with tirzepatide used for glucose regulation, volume control and continued weight loss as she has done very well with medication. She will continue follow-up with her PCP for hypothyroidism. Patient will continue with vitamin supplementation due to history of deficiency. We discussed continuing to work on redirection techniques to help with any reward eating, but patient does feel this is very well-controlled right now. We also discussed working on meeting dietary targets throughout the day, especially protein to carbohydrate ratios, to better help with insulin resistance. I also encouraged Pt to continue working on exercise within orthopedics to help with muscle acquisition. Patient will follow-up in 8 weeks or sooner if needed. This note was partially created using voice recognition software and is inherently subject to errors including those of syntax and sound-alike substitutions which may escape proofreading. In such instances, original meaning may be extrapolated by contextual derivation Medications reviewed with patient. The following portions of the patient's history were reviewed and updated as appropriate: allergies, current medications, past family history, past medical history, past social history, past surgical history and problem list . Review of Systems Constitutional: Positive for fatigue (chronic but some improvement). Negative for appetite change. HENT: Negative. Eyes: Negative. Respiratory: Negative. Negative for shortness of breath. Cardiovascular: Negative. Negative for chest pain. Gastrointestinal: Negative. Negative for abdominal pain, constipation, diarrhea, nausea and vomiting. Endocrine: Negative. Genitourinary: Negative. Musculoskeletal: Negative. Skin: Negative. Allergic/Immunologic: Negative. Neurological: Negative. Hematological: Negative. Psychiatric/Behavioral: Negative. Negative for agitation, behavioral problems, dysphoric mood and sleep disturbance. The patient is not nervous/anxious. Past Medical History: Diagnosis Date Anxiety Asthma Depression Disease of thyroid gland hypothyroid Hodgkin's lymphoma (HCC) 09/2011 Lymphoma, Hodgkin's (HCC) Preeclampsia previous Social History Socioeconomic History Marital status: Tobacco Use Smoking status: Never Smokeless tobacco: Never Vaping Use Vaping Use: Never used Substance and Sexual Activity Alcohol use: Yes Drug use: Never Sexual activity: Yes Partners: Male Current Outpatient Medications Medication Sig Dispense Refill albuterol 90 mcg/actuation inhaler Inhale 2 (two) puffs every 6 (six) hours as needed for shortness of breath or cough . 18 g 0 budesonide-formoteroL (Symbicort) 80-4.5 mcg/actuation inhaler Inhale 2 (two) puffs 2 (two) times a day . 1 each 2 buPROPion (WELLBUTRIN XL) 300 MG 24 hr tablet Take 1 (one) tablet (300 mg total) by mouth daily . 30 tablet 2 cyanocobalamin, vitamin B-12, 1,[address] 1 (one) tablet (1,000 mcg total) under the tongue daily . 30 tablet 2 ergocalciferol (ERGOCALCIFEROL) 1,250 mcg (50,000 unit) capsule Take 1 (one) capsule (50,000 Units total) by mouth twice weekly Take with 500mg vitamin c and fatty meal . 8 capsule 1 ferrous sulfate 325 (65 FE) MG tablet Take 1 (one) tablet (325 mg total) by mouth every other day Take with 500mg of vitamin c . 15 tablet 1 furosemide (LASIX) 20 MG tablet Take 1 (one) tablet (20 mg total) by mouth 2 (two) times a day Reasons: visible water retention. inhaler, assist devices (OPTICHAMBER ADVANTAGE) Spcr As directed . 1 each 0 levothyroxine (SYNTHROID, LEVOTHROID) 150 MCG tablet Take 1 (one) tablet (150 mcg total) by mouth once daily . 30 tablet 1 ondansetron (ZOFRAN-ODT) 4 MG disintegrating tablet Dissolve 1 (one) tablet (4 mg total) on top of tongue every 8 (eight) hours as needed for nausea . 20 tablet 0 pyridoxine, vitamin B6, (vitamin B-6) 25 MG tablet Take 1 (one) tablet (25 mg total) by mouth daily . 30 tablet 2 sertraline (ZOLOFT) 25 MG tablet Take 1 (one) tablet (25 mg total) by mouth nightly . 30 tablet 2 tirzepatide (Mounjaro) 15 mg/0.5 mL Pen Inject 0.5 mL (15 mg total) under the skin every 7 days . 2 mL 5 zonisamide (ZONEGRAN) 50 MG capsule Take 1 (one) capsule (50 mg total) by mouth once daily Take in evening . 30 capsule 2 No current facility-administered medications for this visit. Problem List Items Addressed This Visit Other Atypical eating disorder - Primary Relevant Medications buPROPion (WELLBUTRIN XL) 300 MG 24 hr tablet zonisamide (ZONEGRAN) 50 MG capsule Other Visit Diagnoses Insulin resistance Overweight (BMI 25.0-29.9) BMI 28.0-28.9,adult Vitamin D deficiency Vitamin B6 deficiency Iron deficiency Hypothyroidism (acquired) Continue the currently prescribed calorie load and composition. Return in about 2 months (around 10/31/2023) for Follow Up. Total Visit Time: minutes more than 50% of the time face to face discussing findings and coordinating care regarding medication management and education for disease processes and treatment protocol. Provider Location: [facility] [address] [id number] Patient Location: [address] [place] [address] [place] [id number] Meal Plan Breakfast: Eggs, toast, light/sausage Lunch: Pizza, sandwich, chicken, leftover dinners Dinner: Pork chops, burgers, chicken, veggie No of Snacks Per Day: 2 Liquid Intake What do you usually drink?: Water; Tea; Coffe; Juice; Pop What type of Alcohol do you drink?: None How many drinks per week?: 0 Physical Activity What are you currently doing - physical activity or exercise?: Walking or squats, crunches How many times per week?: 3 How long do you exercise at each session?: 5-10 Any limitations you are currently having affecting your activity or exercise?: Fatigue Appetite Levels Is your appetite well controlled at this time?: Yes Energy Levels Are your energy levels fairly good at this time?: No Quality of Sleep Are you sleeping well at this time?: No How many hours of sleep per night?: 5 Do you feel rested when you wake up in the morning?: No Do you have sleep apnea?: No Stress Levels What is the level of stress in your life currently? On the scale of 1 to 10, 10 being the most stressed.: 5 How is your general mood ?: OK Patient Medications Are you currently taking any medications for your weight?: Yes If yes, are you having any problems with these medications?: 1 Patient Weight Most recent weight?: 170 Patient Blood Pressure Most recent Blood Pressure?: 100/60 documented in this encounter [facility] 07-13-2023 History of Present illness Narrative Chief Complaint Patient presents with Obesity Weight Loss NOATAK: Pt who is a Body mass index is 28.86 kg/m . Patient's history of diet, exercise, sleep, stress and appetite control reviewed and confirmed with patient, please see the emergency medical services coordinator's note. HPI: Patient here today for recheck through the [facility]. Patient denies any increase in cravings or hunger since last appointment. Energy levels are still not at goal but she does feel they are improving somewhat. Patient states that sleep is reasonable.Patient feels she has been able to adhere to the dietary protocols as ordered since last appointment but admits she is still not exercising. She states that she knows that she needs to do some form of exercise, but it is difficult to motivate herself to do so. Medications were reviewed today and no other problems noted. She states she is tolerating medication well without any unwanted side effects. Stress levels are reasonably managed. Patient also had body composition completed today which we will review today. For the rest of the review of systems and exam see the EMR. Impression: 1. Atypical eating disorder, 2. Insulin resistance, 3. Overweight, 4. BMI 28.0-28.9, 5. Vitamin D deficiency, 6. Vitamin B6 deficiency, 7. Iron deficiency, 8. Hypothyroidism, 9. Depression, 10. Fatigue Plan: Patient will continue with Wellbutrin for volume control as she is tolerating medication well. She will also continue with low-dose Zoloft for depression symptoms as this also feels well controlled. She will also continue with Mounjaro for glucose regulation, and off label for meal termination and weight loss, as she also continues to tolerate this well. She also has complaint of some hair loss so we did discuss having repeat lab work completed to further evaluate. She states she is fasting today and patient will have repeat lab work completed today to reevaluate insulin resistance status, hypothyroidism, iron and vitamin levels today. I will make adjustments as needed once I have reviewed results. We also discussed working on meeting dietary targets throughout the day, especially protein to carbohydrate ratios, to better help with insulin resistance. I also encouraged Pt to work on exercise within orthopedics to help with muscle acquisition. We also discussed body composition today and ways to make changes in her lifestyle, such as adding protein and exercise to her regimen, in order to help support muscle acquisition based on results. Patient will follow up in 6 to 8 weeks or sooner if needed. This note was partially created using voice recognition software and is inherently subject to errors including those of syntax and sound-alike substitutions which may escape proofreading. In such instances, original meaning may be extrapolated by contextual derivation Medications reviewed with patient. The following portions of the patient's history were reviewed and updated as appropriate: allergies, current medications, past family history, past medical history, past social history, past surgical history and problem list . Review of Systems Constitutional: Positive for fatigue (chronic per Pt, but some improvement). Negative for appetite change (improved). HENT: Negative. Eyes: Negative. Respiratory: Negative. Negative for cough, chest tightness and shortness of breath. Cardiovascular: Negative. Negative for chest pain and palpitations. Gastrointestinal: Negative. Negative for abdominal pain, constipation, diarrhea, nausea and vomiting. Endocrine: Negative. Genitourinary: Negative. Musculoskeletal: Negative. Skin: Negative. Allergic/Immunologic: Negative. Neurological: Negative. Hematological: Negative. Psychiatric/Behavioral: Positive for sleep disturbance (intermittent d/t schedule). Negative for agitation, behavioral problems and dysphoric mood (stable with current management). The patient is not nervous/anxious. Past Medical History: Diagnosis Date Anxiety Asthma Depression Disease of thyroid gland hypothyroid Hodgkin's lymphoma (HCC) 09/2011 Lymphoma, Hodgkin's (HCC) Preeclampsia previous Social History Socioeconomic History Marital status: Tobacco Use Smoking status: Never Smokeless tobacco: Never Vaping Use Vaping Use: Never used Substance and Sexual Activity Alcohol use: Yes Drug use: Never Sexual activity: Yes Partners: Male Current Outpatient Medications Medication Sig Dispense Refill furosemide (LASIX) 20 MG tablet Take 1 (one) tablet (20 mg total) by mouth 2 (two) times a day Reasons: visible water retention. inhaler, assist devices (OPTICHAMBER ADVANTAGE) Spcr As directed . 1 each 0 levothyroxine (SYNTHROID, LEVOTHROID) 150 MCG tablet Take 1 (one) tablet (150 mcg total) by mouth once daily . 30 tablet 1 albuterol 90 mcg/actuation inhaler Inhale 2 (two) puffs every 6 (six) hours as needed for shortness of breath or cough . 18 g 0 budesonide-formoteroL (Symbicort) 80-4.5 mcg/actuation inhaler Inhale 2 (two) puffs 2 (two) times a day . 1 each 2 buPROPion (WELLBUTRIN XL) 300 MG 24 hr tablet Take 1 (one) tablet (300 mg total) by mouth daily . 30 tablet 2 cyanocobalamin, vitamin B-12, 1,[address] 1 (one) tablet (1,000 mcg total) under the tongue daily . 30 tablet 2 ergocalciferol (ERGOCALCIFEROL) 1,250 mcg (50,000 unit) capsule Take 1 (one) capsule (50,000 Units total) by mouth twice weekly Take with 500mg vitamin c and fatty meal . 8 capsule 1 ferrous sulfate 325 (65 FE) MG tablet Take 1 (one) tablet (325 mg total) by mouth every other day Take with 500mg of vitamin c . 15 tablet 1 ondansetron (ZOFRAN-ODT) 4 MG disintegrating tablet Dissolve 1 (one) tablet (4 mg total) on top of tongue every 8 (eight) hours as needed for nausea . 20 tablet 0 pyridoxine, vitamin B6, (vitamin B-6) 25 MG tablet Take 1 (one) tablet (25 mg total) by mouth daily . 30 tablet 2 sertraline (ZOLOFT) 25 MG tablet Take 1 (one) tablet (25 mg total) by mouth nightly . 30 tablet 2 tirzepatide (Mounjaro) 15 mg/0.5 mL Pen Inject 0.5 mL (15 mg total) under the skin every 7 days . 2 mL 5 zonisamide (ZONEGRAN) 50 MG capsule Take 1 (one) capsule (50 mg total) by mouth once daily Take in evening . 30 capsule 2 No current facility-administered medications for this visit. BP 108/74 Pulse (!) 101 Ht 5' 5 (1.651 m) Wt 78.7 kg (173 lb 6.4 oz) SpO2 98% BMI 28.86 kg/m Physical Exam Vitals and nursing note reviewed. Constitutional: General: She is not in acute distress. Appearance: Normal appearance. She is obese. She is not ill-appearing, toxic-appearing or diaphoretic. Cardiovascular: Rate and Rhythm: Normal rate and regular rhythm. Heart sounds: Normal heart sounds. No murmur heard. No friction rub. No gallop. Pulmonary: Effort: Pulmonary effort is normal. No respiratory distress. Breath sounds: Normal breath sounds. No stridor. No wheezing, rhonchi or rales. Chest: Chest wall: No tenderness. Skin: General: Skin is warm and dry. Coloration: Skin is not jaundiced or pale. Neurological: General: No focal deficit present. Mental Status: She is alert and oriented to person, place, and time. Psychiatric: Mood and Affect: Mood normal. Behavior: Behavior normal. Thought Content: Thought content normal. Judgment: Judgment normal. Problem List Items Addressed This Visit Other Atypical eating disorder - Primary Relevant Medications buPROPion (WELLBUTRIN XL) 300 MG 24 hr tablet sertraline (ZOLOFT) 25 MG tablet zonisamide (ZONEGRAN) 50 MG capsule Other Visit Diagnoses Insulin resistance Relevant Medications tirzepatide (Mounjaro) 15 mg/0.5 mL Pen Other Relevant Orders Comprehensive Metabolic Panel (Completed) Lipoprotein NMR (Completed) Overweight (BMI 25.0-29.9) BMI 28.0-28.9,adult Vitamin D deficiency Relevant Orders Vitamin D, Total, 25-OH (Completed) Vitamin B6 deficiency Relevant Orders Vitamin B6 (Completed) Iron deficiency Relevant Orders CBC and Differential (Completed) Ferritin (Completed) Folate (Completed) Iron and TIBC (Completed) Hypothyroidism (acquired) Relevant Orders TSH (Completed) T4, Free (Completed) T3 (Completed) Depression, unspecified depression type Relevant Medications buPROPion (WELLBUTRIN XL) 300 MG 24 hr tablet sertraline (ZOLOFT) 25 MG tablet Fatigue, unspecified type Relevant Orders CBC and Differential (Completed) Ferritin (Completed) Folate (Completed) Iron and TIBC (Completed) Vitamin B12 (Completed) Continue the currently prescribed calorie load and composition. Return in about 2 months (around 09/12/2023) for Follow Up. Counseling Time: minutes more than 50% of the time face to face discussing findings and coordinating care regarding medication management and education for disease processes and treatment protocol. Discussed elevated Body Mass Index (BMI): Advised regular exercise. Discussed elevated Body Mass Index (BMI): Advised healthy and appropriate diet. Discussed elevated Body Mass Index (BMI): Nutrition referral. Discussed elevated Body Mass Index (BMI): Reviewed high BMI, BMI is not an accurate measurement of obesity for this patient. Rationale: Overweight (Findings) BMI Meal Plan Breakfast: Eggs, light/sausage Lunch: Nothing or sandwich, leftover dinners, pizza, veggies & dip Dinner: Pork chop/chicken/ribs/hamburger, broccoli/corn/potato/carrots, mac n cheese/rice No of Snacks Per Day: 2 Liquid Intake What do you usually drink?: Water; Juice; Pop What type of Alcohol do you drink?: None How many drinks per week?: 0 Physical Activity What are you currently doing - physical activity or exercise?: Cleaning, walking sometimes How many times per week?: 3 How long do you exercise at each session?: 15 Any limitations you are currently having affecting your activity or exercise?: Fatigue Appetite Levels Is your appetite well controlled at this time?: No Energy Levels Are your energy levels fairly good at this time?: No Quality of Sleep Are you sleeping well at this time?: No How many hours of sleep per night?: 5 Do you feel rested when you wake up in the morning?: No Do you have sleep apnea?: No Stress Levels What is the level of stress in your life currently? On the scale of 1 to 10, 10 being the most stressed.: 6 How is your general mood ?: OK Patient Medications Are you currently taking any medications for your weight?: Yes If yes, are you having any problems with these medications?: 1 Patient Weight Most recent weight?: 174 Patient Blood Pressure Most recent Blood Pressure?: 118/76 documented in this encounter [facility] 05-09-2023 History of Present illness Narrative Video Visit Patient: Aurora Mendez Date of : 1985 (37 y.o. female) PCP: Evi Pacheco MD Video Visit Consent Statement: I discussed risks, benefits and alternatives of a real-time synchronous audiovisual consultation with the patient (and any accompanying persons) including the risks that the patient s personal health details and medical records will be discussed over real-time, synchronous, interactive video/audio/telecommunication technology, the visit will not be recorded without the express consent of both the provider and the patient, and that there are some limitations compared to [id number] evaluations. We elected to proceed. Chief Complaint Patient presents with Obesity Weight Loss Patient Start time: Stop time: Pt who is a Body mass index is 29.19 kg/m . Patient's history of diet, exercise, sleep, stress and appetite control reviewed and confirmed with patient, please see the emergency medical services coordinator's note. This is a telemedicine encounter. This visit has been fully reviewed with the patient and verbal consent has been obtained. NOATAK: Patient here today for recheck through the [facility]. Patient denies any increase in hunger or cravings since last appt. Energy levels are improving. Sleep is reasonable. Patient feels she is better able to adhere to the diet and exercise protocols as ordered since last appt. she states she has really been working on some home exercises and has really been working on getting her protein in every day. Medications were reviewed today and no problems noted. She states she is tolerating medications well. Stress levels are reasonably managed and she feels stable with mood with current regimen of medication. For the rest of the review of systems and exam see the EMR. ASSESSMENT: 1. Atypical eating disorder buPROPion (WELLBUTRIN XL) 300 MG 24 hr tablet zonisamide (ZONEGRAN) 25 MG capsule 2. Insulin resistance 3. Overweight (BMI 25.0-29.9) 4. BMI 29.0-29.9,adult 5. Vitamin D deficiency 6. Vitamin B6 deficiency 7. Iron deficiency 8. Depression, unspecified depression type sertraline (ZOLOFT) 25 MG tablet 9. Hypothyroidism (acquired) Plan: Patient will continue with Wellbutrin for volume control and Zoloft for depression symptoms as she feels well controlled with current regimen. We also discussed continuing to work on coping strategies to better help with mood and redirection techniques to help with any reward eating if needed, although she feels this is well managed at this time. She will also continue with current dose of zonisamide in the evening as she feels improvement with reward eating and volume control with medication. She will also continue with Mounjaro for glucose regulation, volume control and continued weight loss that she is doing very well with medication. Patient will also continue with vitamin and iron supplementation due to deficiency, as well as current dose of levothyroxine for hypothyroidism. We also discussed continuing to work on meeting dietary targets throughout the day, especially protein to carbohydrate ratios, to better help with insulin resistance. I also encouraged Pt to continue working on exercise within orthopedics to help with muscle acquisition. Patient will have body composition completed at next appointment. Patient will follow-up in 6 to 8 weeks or sooner if needed. This note was partially created using voice recognition software and is inherently subject to errors including those of syntax and sound-alike substitutions which may escape proofreading. In such instances, original meaning may be extrapolated by contextual derivation Medications reviewed with patient. The following portions of the patient's history were reviewed and updated as appropriate: allergies, current medications, past family history, past medical history, past social history, past surgical history and problem list . Review of Systems Constitutional: Positive for fatigue (intermittent, improving per Pt). Negative for appetite change. HENT: Negative. Eyes: Negative. Respiratory: Negative. Negative for shortness of breath. Cardiovascular: Negative. Negative for chest pain. Gastrointestinal: Negative. Negative for abdominal pain, constipation, diarrhea, nausea and vomiting. Endocrine: Negative. Genitourinary: Negative. Musculoskeletal: Negative. Skin: Negative. Allergic/Immunologic: Negative. Neurological: Negative. Hematological: Negative. Psychiatric/Behavioral: Positive for dysphoric mood (improved) and sleep disturbance (intermittent, improving per Pt). Negative for agitation and behavioral problems. The patient is not nervous/anxious. Past Medical History: Diagnosis Date Anxiety Asthma Depression Disease of thyroid gland hypothyroid Hodgkin's lymphoma (HCC) 09/2011 Lymphoma, Hodgkin's (HCC) Preeclampsia previous Social History Socioeconomic History Marital status: Tobacco Use Smoking status: Never Smokeless tobacco: Never Vaping Use Vaping Use: Never used Substance and Sexual Activity Alcohol use: Yes Drug use: Never Sexual activity: Yes Partners: Male Current Outpatient Medications Medication Sig Dispense Refill albuterol 90 mcg/actuation inhaler Inhale 2 (two) puffs every 6 (six) hours as needed for shortness of breath or cough . 18 g 0 budesonide-formoteroL (Symbicort) 80-4.5 mcg/actuation inhaler Inhale 2 (two) puffs 2 (two) times a day . 1 each 2 buPROPion (WELLBUTRIN XL) 300 MG 24 hr tablet Take 1 (one) tablet (300 mg total) by mouth daily . 30 tablet 2 cyanocobalamin, vitamin B-12, 1,[address] 1 (one) tablet (1,000 mcg total) under the tongue daily . 30 tablet 2 ergocalciferol (ERGOCALCIFEROL) 1,250 mcg (50,000 unit) capsule Take 1 (one) capsule (50,000 Units total) by mouth once a week Take with 500mg vitamin c and fatty meal . 4 capsule 1 ferrous sulfate 325 (65 FE) MG tablet Take 1 (one) tablet (325 mg total) by mouth every other day Take with 500mg of vitamin c . 15 tablet 1 furosemide (LASIX) 20 MG tablet Take 1 (one) tablet (20 mg total) by mouth 2 (two) times a day Reasons: visible water retention. inhaler, assist devices (OPTICHAMBER ADVANTAGE) Spcr As directed . 1 each 0 levothyroxine (SYNTHROID, LEVOTHROID) 150 MCG tablet Take 1 (one) tablet (150 mcg total) by mouth once daily . 30 tablet 1 ondansetron (ZOFRAN-ODT) 4 MG disintegrating tablet Dissolve 1 (one) tablet (4 mg total) on top of tongue every 8 (eight) hours as needed for nausea . 20 tablet 0 pyridoxine, vitamin B6, (vitamin B-6) 25 MG tablet Take 1 (one) tablet (25 mg total) by mouth daily . 30 tablet 2 sertraline (ZOLOFT) 25 MG tablet Take 1 (one) tablet (25 mg total) by mouth nightly . 30 tablet 2 tirzepatide (Mounjaro) 15 mg/0.5 mL Pen Inject 0.5 mL (15 mg total) under the skin every 7 days Reasons: type 2 diabetes mellitus. 2 mL 5 zonisamide (ZONEGRAN) 25 MG capsule Take 1 (one) capsule (25 mg total) by mouth once daily Take in evening . 30 capsule 2 No current facility-administered medications for this visit. Problem List Items Addressed This Visit Other Atypical eating disorder - Primary Relevant Medications buPROPion (WELLBUTRIN XL) 300 MG 24 hr tablet zonisamide (ZONEGRAN) 25 MG capsule sertraline (ZOLOFT) 25 MG tablet Other Visit Diagnoses Insulin resistance Overweight (BMI 25.0-29.9) BMI 29.0-29.9,adult Vitamin D deficiency Vitamin B6 deficiency Iron deficiency Depression, unspecified depression type Relevant Medications buPROPion (WELLBUTRIN XL) 300 MG 24 hr tablet sertraline (ZOLOFT) 25 MG tablet Hypothyroidism (acquired) Continue the currently prescribed calorie load and composition. Return in about 2 months (around 07/09/2023) for Follow Up, Body Comp. Total Visit Time: minutes more than 50% of the time face to face discussing findings and coordinating care regarding medication management and education for disease processes and treatment protocol. Provider Location: [facility] [address] [facility] [id number] Patient Location: [address] [place] [address] [address] [place] [id number] Meal Plan Breakfast: Nothing or eggs w/ light/sausage or protein shake Lunch: Nothing or protein shake or leftover dinners Dinner: Pork chops/chicken/hamburger, veggie, either potato or salad No of Snacks Per Day: 1 Liquid Intake What do you usually drink?: Water; Juice; Pop What type of Alcohol do you drink?: None How many drinks per week?: 0 Physical Activity What are you currently doing - physical activity or exercise?: Walking and/or cleaning the house How many times per week?: 2 How long do you exercise at each session?: 15 to 30 minutes Any limitations you are currently having affecting your activity or exercise?: Fatigue Appetite Levels Is your appetite well controlled at this time?: No Energy Levels Are your energy levels fairly good at this time?: No Quality of Sleep Are you sleeping well at this time?: No How many hours of sleep per night?: 5 Do you feel rested when you wake up in the morning?: No Do you have sleep apnea?: No Stress Levels What is the level of stress in your life currently? On the scale of 1 to 10, 10 being the most stressed.: 7 How is your general mood ?: OK Patient Medications Are you currently taking any medications for your weight?: Yes If yes, are you having any problems with these medications?: 1 Patient Weight Most recent weight?: 175.4 Patient Blood Pressure Most recent Blood Pressure?: 118/72 [facility]23 Telephone encounter Note [facility] 03/15JUN 23 Requested Prescriptions Pending Prescriptions Disp Refills tirzepatide (Mounjaro) 15 mg/0.5 mL Pen 2 mL 5 Sig: Inject 0.5 mL (15 mg total) under the skin every 7 days Reasons: type 2 diabetes mellitus. [facility] 04-07-2023 Miscellaneous Notes [facility] 03/15JUN 23 Requested Prescriptions Pending Prescriptions Disp Refills tirzepatide (Mounjaro) 15 mg/0.5 mL Pen 2 mL 5 Sig: Inject 0.5 mL (15 mg total) under the skin every 7 days Reasons: type 2 diabetes mellitus. documented in this encounter [facility] 01-12-2023 Telephone encounter Note [facility] 12/10JUN 20 Requested Prescriptions Pending Prescriptions Disp Refills levothyroxine (SYNTHROID, LEVOTHROID) 137 MCG tablet 30 tablet 1 Sig: Take 1 (one) tablet (137 mcg total) by mouth once daily . [facility] 01-12-2023 Miscellaneous Notes [facility] 12/10 NOV 01/21 Requested Prescriptions Pending Prescriptions Disp Refills levothyroxine (SYNTHROID, LEVOTHROID) 137 MCG tablet 30 tablet 1 Sig: Take 1 (one) tablet (137 mcg total) by mouth once daily . documented in this encounter [facility] 12-10-2022 History of Present illness Narrative Video Visit Patient: Aurora Mendez Date of : 1985 (37 y.o. female) PCP: Evi Pacheco MD Video Visit Consent Statement: I discussed risks, benefits and alternatives of a real-time synchronous audiovisual consultation with the patient (and any accompanying persons) including the risks that the patient s personal health details and medical records will be discussed over real-time, synchronous, interactive video/audio/telecommunication technology, the visit will not be recorded without the express consent of both the provider and the patient, and that there are some limitations compared to [id number] evaluations. We elected to proceed. Chief Complaint Patient presents with Obesity Weight Loss Patient Start time: Stop time: Pt who is a Body mass index is 34.53 kg/m . Patient's history of diet, exercise, sleep, stress and appetite control reviewed and confirmed with patient, please see the emergency medical services coordinator's note. This is a telemedicine encounter. This visit has been fully reviewed with the patient and verbal consent has been obtained. NOATAK: Patient here today for recheck through the [facility]. Patient denies any increase in cravings or hunger. Energy levels are fair. Sleep is reasonable. Patient feels she is better able to adhere to the diet and exercise protocols as ordered since last appt. she admits that she has not exercise regimen but tries to walk to the park with her children a few days a week. Medications were reviewed today and no problems noted. She states she is tolerating medications well. She feels that her appetite is very well controlled and she often skips meals as she does not feel hungry. She also admits that her energy levels are very low when not eating. On those days, especially, she will find herself wanting to take a nap and going back to bed when her kids go to school. Stress levels are reasonably managed and she does feel improvement with mood with current regimen of medication as well. For the rest of the review of systems and exam see the EMR. ASSESSMENT: 1. Atypical eating disorder buPROPion (WELLBUTRIN XL) 300 MG 24 hr tablet 2. Insulin resistance 3. Obesity, Class I, BMI 30-34.9 4. BMI 34.0-34.9,adult 5. Depression, unspecified depression type sertraline (ZOLOFT) 25 MG tablet 6. Vitamin D deficiency 7. Vitamin B6 deficiency 8. Iron deficiency 9. Hypothyroidism (acquired) Plan: Patient will continue with Wellbutrin for volume control as she feels well controlled with medication. After further discussion with patient, she is taking Wellbutrin anywhere between noon and 2 PM. She then finds herself staying up until around 2 AM. I will have her start taking Wellbutrin first thing in the morning between 6:30 AM and 7 AM when she gets up for her children on the bus. I discussed how this could be keeping her from falling asleep until late at night. She will also continue with Zoloft for depression symptoms. We also discussed continuing to work on coping strategies to better help with mood, as well as redirection techniques to help with any reward eating if needed. She does feel this is well controlled right now. She will also continue with current dose of Mounjaro for glucose regulation, volume control and continued weight loss that she is doing very well with medication. I did discuss diet at length today and importance of getting nutrients in throughout the day, especially protein. She is often skipping meals because she does not feel hungry throughout the day, which also leads to daytime fatigue and tiredness. We discussed ways that she can make some changes to her daytime routine to help add protein in, even protein supplements, to help meet macronutrient targets throughout the day. We also discussed working on meeting all dietary targets throughout the day, especially protein to carbohydrate ratios, to better help with insulin resistance. I also encouraged Pt to continue working on exercise within orthopedics to help with muscle acquisition. Patient will also continue with vitamin and iron supplementation due to deficiency, as well as current dose of levothyroxine for hypothyroidism. She will have repeat lab work completed prior to next follow-up appointment. Patient will follow-up in 6 to 8 weeks or sooner if needed. This note was partially created using voice recognition software and is inherently subject to errors including those of syntax and sound-alike substitutions which may escape proofreading. In such instances, original meaning may be extrapolated by contextual derivation Medications reviewed with patient. The following portions of the patient's history were reviewed and updated as appropriate: allergies, current medications, past family history, past medical history, past social history, past surgical history and problem list . Review of Systems Constitutional: Positive for fatigue (intermittent). Negative for appetite change. HENT: Negative. Eyes: Negative. Respiratory: Negative. Negative for shortness of breath. Cardiovascular: Negative. Negative for chest pain. Gastrointestinal: Negative. Negative for abdominal pain, constipation, diarrhea, nausea and vomiting. Endocrine: Negative. Genitourinary: Negative. Musculoskeletal: Negative. Skin: Negative. Allergic/Immunologic: Negative. Neurological: Negative. Hematological: Negative. Psychiatric/Behavioral: Positive for dysphoric mood (improved). Negative for agitation, behavioral problems and sleep disturbance. The patient is not nervous/anxious. Past Medical History: Diagnosis Date Anxiety Asthma Depression Disease of thyroid gland hypothyroid Hodgkin's lymphoma (HCC) 09/2011 Lymphoma, Hodgkin's (HCC) Preeclampsia previous Social History Socioeconomic History Marital status: Tobacco Use Smoking status: Never Smokeless tobacco: Never Vaping Use Vaping status: Never Used Substance and Sexual Activity Alcohol use: Yes Drug use: Never Sexual activity: Yes Partners: Male Current Outpatient Medications Medication Sig Dispense Refill albuterol 90 mcg/actuation inhaler Inhale 2 (two) puffs every 6 (six) hours as needed for shortness of breath or cough . 18 g 0 budesonide-formoteroL (Symbicort) 80-4.5 mcg/actuation inhaler Inhale 2 (two) puffs 2 (two) times a day . 1 each 2 buPROPion (WELLBUTRIN XL) 300 MG 24 hr tablet Take 1 (one) tablet (300 mg total) by mouth daily . 30 tablet 1 cyanocobalamin, vitamin B-12, 1,[address] 1 (one) tablet (1,000 mcg total) under the tongue daily . 30 tablet 2 ergocalciferol (ERGOCALCIFEROL) 1,250 mcg (50,000 unit) capsule Take 1 (one) capsule (50,000 Units total) by mouth once a week Take with 500mg vitamin c and fatty meal . 4 capsule 1 ferrous sulfate 325 (65 FE) MG tablet Take 1 (one) tablet (325 mg total) by mouth every other day Take with 500mg of vitamin c . 15 tablet 1 furosemide (LASIX) 20 MG tablet Take 20 mg by mouth 2 (two) times a day Reasons: visible water retention. inhaler, assist devices (OPTICHAMBER ADVANTAGE) Spcr As directed . 1 each 0 levothyroxine (SYNTHROID, LEVOTHROID) 137 MCG tablet Take 1 (one) tablet (137 mcg total) by mouth once daily . 30 tablet 1 ondansetron (ZOFRAN-ODT) 4 MG disintegrating tablet Dissolve 1 (one) tablet (4 mg total) on top of tongue every 8 (eight) hours as needed for nausea . 20 tablet 0 pyridoxine, vitamin B6, (vitamin B-6) 25 MG tablet Take 1 (one) tablet (25 mg total) by mouth daily . 30 tablet 2 sertraline (ZOLOFT) 25 MG tablet Take 1 (one) tablet (25 mg total) by mouth nightly . 30 tablet 1 tirzepatide (Mounjaro) 15 mg/0.5 mL Pen Inject 0.5 mL (15 mg total) under the skin every 7 days Reasons: type 2 diabetes mellitus. 2 mL 2 topiramate (TOPAMAX) 25 MG tablet Take 1 (one) tablet (25 mg total) by mouth daily . (Patient not taking: Reported on 12/10/2022 .) 30 tablet 1 No current facility-administered medications for this visit. Problem List Items Addressed This Visit Other Atypical eating disorder - Primary Relevant Medications buPROPion (WELLBUTRIN XL) 300 MG 24 hr tablet sertraline (ZOLOFT) 25 MG tablet Other Visit Diagnoses Insulin resistance Obesity, Class I, BMI 30-34.9 BMI 34.0-34.9,adult Depression, unspecified depression type Relevant Medications buPROPion (WELLBUTRIN XL) 300 MG 24 hr tablet sertraline (ZOLOFT) 25 MG tablet Vitamin D deficiency Vitamin B6 deficiency Iron deficiency Hypothyroidism (acquired) Continue the currently prescribed calorie load and composition. Return in about 4 weeks (around 01/07/2023) for Follow Up. Total Visit Time: minutes more than 50% of the time face to face discussing findings and coordinating care regarding medication management and education for disease processes and treatment protocol. Provider Location: [facility] [address] [facility] [id number] Patient Location: [facility] [address] [facility] [address] [facility] [address] Diet: What do you usually have to eat for the following meals: Breakfast - nothing most days Lunch - dinner leftovers, veggies & dip, fruit Dinner - chicken/pork chops/hamburger/fish, veggie Number of snacks per day: 1-2 Frequency of skipping meals per day if any: daily What do you usually drink? Water, Tea, Pop, Juice, gatorade Do you drink alcohol? What type? Hard liquor, Mixed Drinks How many drinks per week? Very rarely if at all Physical Activity What are you currently doing as activity or exercise? Walking, house work, playing outside with my kids How many times per week? 1-2 How long at each session? 15-20 minutes Any limitations you are currently having affecting your activity or exercise? Lack of motivation Appetite: Is your appetite well controlled at this time? Yes Energy levels: Are your energy levels fairly good at this time? No Quality of Sleep: Are you sleeping well at this time? I think so How many hours of sleep per night? 4-5 most nights, sometimes 6-7 if I go back to sleep Do you feel rested when you wake up in the morning? No Do you have sleep apnea and if you do are you currently treated? No Level of Stress: What is the level of stress in your life currently?- 5 or 6 most days How is your general mood? Depressed? Anxious? Or OK? I think OK Medications: If you are currently taking any medication for your weight, are you having any problems with them? No Most recent weight: 207.5 documented in this [facility] 10-27-[facility] History of Present illness Narrative Video Visit Patient: Aurora Mendez Date of : 1985 (37 y.o. female) PCP: Evi Pacheco MD Video Visit Consent Statement: I discussed risks, benefits and alternatives of a real-time synchronous audiovisual consultation with the patient (and any accompanying persons) including the risks that the patient s personal health details and medical records will be discussed over real-time, synchronous, interactive video/audio/telecommunication technology, the visit will not be recorded without the express consent of both the provider and the patient, and that there are some limitations compared to [id number] evaluations. We elected to proceed. Chief Complaint Patient presents with Obesity Weight Loss Patient Start time: Stop time: Pt who is a Body mass index is 36.48 kg/m . Patient's history of diet, exercise, sleep, stress and appetite control reviewed and confirmed with patient, please see the emergency medical services coordinator's note. This is a telemedicine encounter. This visit has been fully reviewed with the patient and verbal consent has been obtained. NOATAK: Patient here today for recheck through the [facility]. Patient denies any increase in cravings or hunger. Energy levels are fair. Sleep is reasonable. Patient feels she is better able to adhere to the diet and exercise protocols as ordered since last appt. Medications were reviewed today and no problems noted. She states she is tolerating medication well. She states she really likes Mounjaro and how it is helping her control her appetite. She denies any unwanted side effects with medication. Stress levels are reasonably managed but she states she has been feeling symptoms of depression intermittently ongoing. She states she has not been consistent with her Zoloft, so she states she will work on this. She denies any unwanted side effects from medication, just states she got away from taking consistently. Pt also recently had labs drawn which we will discuss again. I have made patient aware of results via [employer] prior to this appointment. For the rest of the review of systems and exam see the EMR. ASSESSMENT: 1. Atypical eating disorder buPROPion (WELLBUTRIN XL) 300 MG 24 hr tablet 2. Insulin resistance 3. Obesity, Class II, BMI 35-39.9 4. BMI 36.0-36.9,adult 5. Depression, unspecified depression type sertraline (ZOLOFT) 25 MG tablet 6. Vitamin D deficiency 7. Vitamin B6 deficiency 8. Iron deficiency CBC and Differential Ferritin Folate Iron and TIBC 9. Hypothyroidism (acquired) TSH T4, Free T3 Plan: I discussed results of recent lab work with patient today. She will follow-up with PCP for hypothyroidism. She will also continue with iron and vitamin supplementation due to history of deficiency. I will repeat iron and thyroid labs prior to next follow-up appointment as patient will be due for follow-up lab work and she states she wants to have this completed when she comes to our office and will need orders at [facility]. She will continue with Wellbutrin for volume control but I will increase dose to 300 mg to better help with symptoms. I did discuss mechanism of action of medication, as well as risk versus benefits. She will also continue with Zoloft for depression symptoms but we discussed importance of consistency of medication. She will take Zoloft at bedtime. We also discussed coping strategies to better help with mood, as well as redirection techniques to help with any reward eating if needed. She will also continue with current dose of Mounjaro for glucose regulation, volume control and continued weight loss that she is doing very well with medication. I will increase dose to better help with symptoms. We discussed ways to mitigate side effects if needed. She will also continue with Topamax for volume control and reward eating. We also discussed working on meeting dietary targets throughout the day, especially protein to carbohydrate ratios, to better help with insulin resistance. I also encouraged Pt to continue working on exercise within orthopedics to help with muscle acquisition. Patient will follow-up in 6 to 8 weeks or sooner if needed. This note was partially created using voice recognition software and is inherently subject to errors including those of syntax and sound-alike substitutions which may escape proofreading. In such instances, original meaning may be extrapolated by contextual derivation Medications reviewed with patient. The following portions of the patient's history were reviewed and updated as appropriate: allergies, current medications, past family history, past medical history, past social history, past surgical history and problem list . Review of Systems Constitutional: Negative. Negative for appetite change and fatigue. HENT: Negative. Eyes: Negative. Respiratory: Negative. Negative for shortness of breath. Cardiovascular: Negative. Negative for chest pain. Gastrointestinal: Negative. Negative for abdominal pain, constipation, diarrhea, nausea and vomiting. Endocrine: Negative. Genitourinary: Negative. Musculoskeletal: Negative. Skin: Negative. Allergic/Immunologic: Negative. Neurological: Negative. Hematological: Negative. Psychiatric/Behavioral: Positive for dysphoric mood. Negative for agitation, behavioral problems and sleep disturbance. The patient is not nervous/anxious. Past Medical History: Diagnosis Date Anxiety Asthma Depression Disease of thyroid gland hypothyroid Hodgkin's lymphoma (HCC) 09/2011 Lymphoma, Hodgkin's (HCC) Preeclampsia previous Social History Socioeconomic History Marital status: Tobacco Use Smoking status: Never Smokeless tobacco: Never Vaping Use Vaping Use: Never used Substance and Sexual Activity Alcohol use: Yes Drug use: Never Sexual activity: Yes Partners: Male Current Outpatient Medications Medication Sig Dispense Refill tirzepatide (Mounjaro) 15 mg/0.5 mL Pen Inject 0.5 mL (15 mg total) under the skin every 7 days Reasons: type 2 diabetes mellitus. 2 mL 2 albuterol 90 mcg/actuation inhaler Inhale 2 (two) puffs every 6 (six) hours as needed for shortness of breath or cough . 18 g 0 budesonide-formoteroL (Symbicort) 80-4.5 mcg/actuation inhaler Inhale 2 (two) puffs 2 (two) times a day . 1 each 2 buPROPion (WELLBUTRIN XL) 300 MG 24 hr tablet Take 1 (one) tablet (300 mg total) by mouth daily . 30 tablet 1 cyanocobalamin, vitamin B-12, 1,[address] 1 (one) tablet (1,000 mcg total) under the tongue daily . 30 tablet 2 ergocalciferol (ERGOCALCIFEROL) 1,250 mcg (50,000 unit) capsule Take 1 (one) capsule (50,000 Units total) by mouth once a week Take with 500mg vitamin c and fatty meal . 4 capsule 1 ferrous sulfate 325 (65 FE) MG tablet Take 1 (one) tablet (325 mg total) by mouth every other day Take with 500mg of vitamin c . 15 tablet 1 furosemide (LASIX) 20 MG tablet Take 20 mg by mouth 2 (two) times a day Reasons: visible water retention. inhaler, assist devices ([employer]BER ADVANTAGE) Spcr As directed . 1 each 0 levothyroxine (SYNTHROID, LEVOTHROID) 137 MCG tablet Take 1 (one) tablet (137 mcg total) by mouth once daily . 30 tablet 1 ondansetron (ZOFRAN-ODT) 4 MG disintegrating tablet Dissolve 1 (one) tablet (4 mg total) on top of tongue every 8 (eight) hours as needed for nausea . 20 tablet 0 pyridoxine, vitamin B6, (vitamin B-6) 25 MG tablet Take 1 (one) tablet (25 mg total) by mouth daily . 30 tablet 2 sertraline (ZOLOFT) 25 MG tablet Take 1 (one) tablet (25 mg total) by mouth nightly . 30 tablet 1 topiramate (TOPAMAX) 25 MG tablet Take 1 (one) tablet (25 mg total) by mouth daily . 30 tablet 1 No current facility-administered medications for this visit. Problem List Items Addressed This Visit Other Obesity, Class II, BMI 35-39.9 Atypical eating disorder - Primary Relevant Medications buPROPion (WELLBUTRIN XL) 300 MG 24 hr tablet sertraline (ZOLOFT) 25 MG tablet Other Visit Diagnoses Insulin resistance BMI 36.0-36.9,adult Depression, unspecified depression type Relevant Medications buPROPion (WELLBUTRIN XL) 300 MG 24 hr tablet sertraline (ZOLOFT) 25 MG tablet Vitamin D deficiency Vitamin B6 deficiency Iron deficiency Relevant Orders CBC and Differential Ferritin Folate Iron and TIBC Hypothyroidism (acquired) Relevant Orders TSH T4, Free T3 Continue the currently prescribed calorie load and composition. Return in about 6 weeks (around 12/08/2022) for Follow Up. Total Visit Time: minutes more than 50% of the time face to face discussing findings and coordinating care regarding medication management and education for disease processes and treatment protocol. Provider Location: [facility] [address] [facility] [id number] Patient Location: [facility] [address] [facility] [address] [facility] [address] Breakfast - nothing, fasting Lunch - leftovers, eggs, lunchmeat sandwich, cheesestick, tomatoes w/rodriguez Dinner - spaghetti, chicken, pork chops, hamburger, veggie, rice Number of snacks per day: 1-2 Frequency of skipping meals per day if any: often What do you usually drink? Water, Tea, Pop, Juice, Coffee Do you drink alcohol? Rarely What type? Beer Wine Hard liquor Mixed Drinks How many drinks per week? 0 Physical Activity What are you currently doing as activity or exercise? Housework, walking How many times per week? 2-3 How long at each session? 20-30 min Any limitations you are currently having affecting your activity or exercise? Tiredness, back pain Appetite: Is your appetite well controlled at this time? Mainly yes Energy levels: Are your energy levels fairly good at this time? No Quality of Sleep: Are you sleeping well at this time? Somewhat How many hours of sleep per night? 4-6 Do you feel rested when you wake up in the morning?No Do you have sleep apnea and if you do are you currently treated? No Level of Stress: What is the level of stress in your life currently? 8 How is your general mood? Depressed? Anxious? Both Medications: If you are currently taking any medication for your weight, are you having any problems with them? No Most recent weight: 219.2 Most recent BP: 118/72 [facility] 09[facility] Telephone encounter Note [facility] 09/08/22 10/27/22 Requested Prescriptions Pending Prescriptions Disp Refills levothyroxine (SYNTHROID, LEVOTHROID) 137 MCG tablet 30 tablet 1 Sig: Take 1 (one) tablet (137 mcg total) by mouth once daily . [facility] 09-14-2022 Miscellaneous Notes [facility] 09/08/22 10/27/22 Requested Prescriptions Pending Prescriptions Disp Refills levothyroxine (SYNTHROID, LEVOTHROID) 137 MCG tablet 30 tablet 1 Sig: Take 1 (one) tablet (137 mcg total) by mouth once daily . documented in this encounter [facility] 09-08-2022 History of Present illness Narrative Video Visit Patient: Aurora Mendez Date of : 1985 (37 y.o. female) PCP: Evi Pacheco MD Video Visit Consent Statement: I discussed risks, benefits and alternatives of a real-time synchronous audiovisual consultation with the patient (and any accompanying persons) including the risks that the patient s personal health details and medical records will be discussed over real-time, synchronous, interactive video/audio/telecommunication technology, the visit will not be recorded without the express consent of both the provider and the patient, and that there are some limitations compared to [id number] evaluations. We elected to proceed. Chief Complaint Patient presents with Obesity Weight Loss Patient Start time: Stop time: Pt who is a Body mass index is 38.77 kg/m . Patient's history of diet, exercise, sleep, stress and appetite control reviewed and confirmed with patient, please see the emergency medical services coordinator's note. This is a telemedicine encounter. This visit has been fully reviewed with the patient and verbal consent has been obtained. NOATAK: Patient here today for recheck through the [facility]. Patient denies any increase in hunger as she still has cravings sometimes in the evening. She states that she will crave something sweet but then nothing sounds good so she goes to bed without feeling the cravings with any snacks. Energy levels are reasonable. Sleep is reasonable. Patient feels she is able to adhere to the dietary protocols as ordered for the most part but admits that she has not really been exercising due to weather. Medications were reviewed today and no problems noted. She states she is tolerating all her medications well. Stress levels are reasonably managed. For the rest of the review of systems and exam see the EMR. ASSESSMENT: 1. Atypical eating disorder buPROPion (WELLBUTRIN XL) 150 MG 24 hr tablet 2. Insulin resistance 3. Obesity, Class II, BMI 35-39.9 4. BMI 38.0-38.9,adult 5. Vitamin D deficiency 6. Vitamin B6 deficiency 7. Iron deficiency 8. Hypothyroidism (acquired) Plan: Patient states she will have repeat thyroid labs drawn this week to reevaluate hypothyroidism. I will wait for results and discuss adjustments if needed. Her H&H results were slightly elevated with last lab draw as well so she will also have this repeated and I will wait for results. She will continue with Wellbutrin for volume control as she is tolerating this well. She will also continue with Mounjaro for glucose regulation, meal termination and weight loss as she has been tolerating this well. I will increase dose to 12.5 mg to better help with symptoms as she is tolerating so well.She will continue with iron and vitamin supplementation due to history of deficiency. We also discussed working on meeting dietary targets throughout the day, especially protein to carbohydrate ratios, to better help with insulin resistance. I also encouraged Pt to work on exercise within orthopedics to help with muscle acquisition. We discussed ways that she can work on some exercise at home as she feels the weather has deterred her from being active lately. She will continue to work on this. Patient will follow up in 1 month or sooner if needed. This note was partially created using voice recognition software and is inherently subject to errors including those of syntax and sound-alike substitutions which may escape proofreading. In such instances, original meaning may be extrapolated by contextual derivation Medications reviewed with patient. The following portions of the patient's history were reviewed and updated as appropriate: allergies, current medications, past family history, past medical history, past social history, past surgical history and problem list . Review of Systems Constitutional: Positive for activity change (Decreased d/t weather) and appetite change (some evening cravings). Negative for fatigue. HENT: Negative. Eyes: Negative. Respiratory: Negative. Negative for shortness of breath. Cardiovascular: Negative. Negative for chest pain. Gastrointestinal: Negative. Negative for abdominal pain, constipation, diarrhea, nausea and vomiting. Endocrine: Negative. Genitourinary: Negative. Musculoskeletal: Negative. Skin: Negative. Allergic/Immunologic: Negative. Neurological: Negative. Hematological: Negative. Psychiatric/Behavioral: Negative. Negative for agitation, behavioral problems, dysphoric mood and sleep disturbance. The patient is not nervous/anxious. Past Medical History: Diagnosis Date Anxiety Asthma Depression Disease of thyroid gland hypothyroid Hodgkin's lymphoma (HCC) 09/2011 Lymphoma, Hodgkin's (HCC) Preeclampsia previous Social History Socioeconomic History Marital status: Tobacco Use Smoking status: Never Smokeless tobacco: Never Vaping Use Vaping Use: Never used Substance and Sexual Activity Alcohol use: Yes Drug use: Never Sexual activity: Yes Partners: Male Current Outpatient Medications Medication Sig Dispense Refill tirzepatide (Mounjaro) 12.5 mg/0.5 mL Pen Inject 0.5 mL (12.5 mg total) under the skin every 7 days Reasons: type 2 diabetes mellitus. 2 mL 1 albuterol 90 mcg/actuation inhaler Inhale 2 (two) puffs every 6 (six) hours as needed for shortness of breath or cough . 18 g 0 budesonide-formoteroL (Symbicort) 80-4.5 mcg/actuation inhaler Inhale 2 (two) puffs 2 (two) times a day . 1 each 2 buPROPion (WELLBUTRIN XL) 150 MG 24 hr tablet Take 1 (one) tablet (150 mg total) by mouth daily . 30 tablet 1 cyanocobalamin, vitamin B-12, 1,[address] 1 (one) tablet (1,000 mcg total) under the tongue daily . 30 tablet 2 ergocalciferol (ERGOCALCIFEROL) 1,250 mcg (50,000 unit) capsule Take 1 (one) capsule (50,000 Units total) by mouth once a week Take with 500mg vitamin c and fatty meal . 4 capsule 1 ferrous sulfate 325 (65 FE) MG tablet Take 1 (one) tablet (325 mg total) by mouth every other day Take with 500mg of vitamin c . 15 tablet 1 furosemide (LASIX) 20 MG tablet Take 20 mg by mouth 2 (two) times a day Reasons: visible water retention. inhaler, assist devices (OPTICHAMBER ADVANTAGE) Spcr As directed . 1 each 0 levothyroxine (SYNTHROID, LEVOTHROID) 137 MCG tablet Take 1 (one) tablet (137 mcg total) by mouth once daily . 30 tablet 1 ondansetron (ZOFRAN-ODT) 4 MG disintegrating tablet Dissolve 1 (one) tablet (4 mg total) on top of tongue every 8 (eight) hours as needed for nausea . 20 tablet 0 pyridoxine, vitamin B6, (vitamin B-6) 25 MG tablet Take 1 (one) tablet (25 mg total) by mouth daily . 30 tablet 2 sertraline (ZOLOFT) 25 MG tablet Take 1 (one) tablet (25 mg total) by mouth nightly . 30 tablet 1 topiramate (TOPAMAX) 25 MG tablet Take 1 (one) tablet (25 mg total) by mouth daily . 30 tablet 1 No current facility-administered medications for this visit. Problem List Items Addressed This Visit Other Obesity, Class II, BMI 35-39.9 Atypical eating disorder - Primary Relevant Medications buPROPion (WELLBUTRIN XL) 150 MG 24 hr tablet Other Visit Diagnoses Insulin resistance BMI 38.0-38.9,adult Vitamin D deficiency Vitamin B6 deficiency Iron deficiency Hypothyroidism (acquired) Continue the currently prescribed calorie load and composition. Return in about 6 weeks (around 10/20/2022) for Follow Up. Total Visit Time: minutes more than 50% of the time face to face discussing findings and coordinating care regarding medication management and education for disease processes and treatment protocol. Provider Location: [facility] [address] [id number] Patient Location: [address] [place] [address] A [address] [facility] [address] Diet: Breakfast - fasting, will have coffee with creamer most days Lunch - leftovers, nothing, eggs w/breakfast meat Dinner - tacos, steak, chicken, pork chops, salad, veggie (usually fresh green beans, asparagus, broccoli, lee sprouts), spaghetti, soups Number of snacks per day: 2-3 Frequency of skipping meals per day if any: daily What do you usually drink? Water, Tea, Pop, Juice, Coffee Do you drink alcohol? Yes, rarely What type? Beer Wine Hard liquor Mixed Drinks How many drinks per week? 0 Physical Activity What are you currently doing as activity or exercise? Not enough How many times per week? Rarely How long at each session? Any limitations you are currently having affecting your activity or exercise? Back pain Is your appetite well controlled at this time? Mostly, still having sweet cravings mainly at night Energy levels: Are your energy levels fairly good at this time? Tired often Quality of Sleep: Are you sleeping well at this time? Sometimes How many hours of sleep per night? 5-6 Do you feel rested when you wake up in the morning? Sometimes Do you have sleep apnea and if you do are you currently treated? No Level of Stress: What is the level of stress in your life currently? 5-6 How is your general mood? OK Medications: If you are currently taking any medication for your weight, are you having any problems with them? No Most recent weight: 233 documented in this encounter [facility] 07-27-[facility]22 History of Present illness Narrative Chief Complaint Patient presents with Obesity Weight Loss NOATAK: Pt who is a Body mass index is 40.87 kg/m . Patient's history of diet, exercise, sleep, stress and appetite control reviewed and confirmed with patient, please see the emergency medical services coordinator's note. HPI: Patient here today for recheck through the [facility]. Patient denies any increase in cravings or hunger other than this past week due to being without Mounjaro. Energy levels are not at goal but this is chronic for Pt. Patient states that sleep is reasonable. 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 She also admits she has not been exercising. Medications were reviewed today and no other problems noted. She states when she was taking all of her medications consistently, she felt great control of her appetite and also salt right weight loss. Patient did have lab work drawn last week. I have not received all results, but will discuss with patient the results I do have. For the rest of the review of systems and exam see the EMR. Impression: 1. Atypical eating disorder, 2. Insulin resistance, 3. Obesity class III, 4. BMI 40.0-44.9, 5. Vitamin D deficiency, 6. Vitamin B6 deficiency, 7. Iron deficiency, 8. Hypothyroidism Plan: I reviewed recent lab results with patient. I am still waiting for additional lab results and will contact patient with those once they have returned. Patient's TSH level is not within normal limits. She is admits that she had not been taking levothyroxine for almost 2 weeks due to being sick prior to having labs drawn. She states that the flu went through her household and she was not feeling well so she did not take her medication. She feels this may be the cause and states that she started taking her medication again once she saw these results. I will have her take her medication consistently as directed and repeat thyroid labs in 4 to 6 weeks. Her H&H results are slightly elevated. I discussed with patient that this may be secondary to some dehydration as she had labs drawn after illness and also states they had trouble with her veins when drawing labs. I will have her repeat CBC in 4 weeks as well to continue monitoring. She will continue with Wellbutrin for volume control as she is tolerating this well. 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 I will increase dose to 10 mg to see if this better helps with symptoms but is also easier for her to obtain due to the 7.5 mg dose being the hardest for patients to get at this point. If patient is unable to have Mounjaro filled, I discussed returning back to [facility] to help with symptoms. Patient will contact office to let me know. She will continue with iron and vitamin supplementation due to history of deficiency. I will make adjustments if needed based on lab results once they have been reviewed. We also discussed working on meeting dietary targets throughout the day, especially protein to carbohydrate ratios, to better help with insulin resistance. I also encouraged Pt to work on exercise within orthopedics to help with muscle acquisition. Patient will follow up in 1 month or sooner if needed. This note was partially created using voice recognition software and is inherently subject to errors including those of syntax and sound-alike substitutions which may escape proofreading. In such instances, original meaning may be extrapolated by contextual derivation Medications reviewed with patient. The following portions of the patient's history were reviewed and updated as appropriate: allergies, current medications, past family history, past medical history, past social history, past surgical history and problem list . Review of Systems Constitutional: Positive for appetite change (for the past week) and fatigue (chronic per Pt). HENT: Negative. Eyes: Negative. Respiratory: Negative. Negative for cough, chest tightness and shortness of breath. Cardiovascular: Negative. Negative for chest pain and palpitations. Gastrointestinal: Negative. Negative for abdominal pain, constipation, diarrhea, nausea and vomiting. Endocrine: Negative. Genitourinary: Negative. Musculoskeletal: Negative. Skin: Negative. Allergic/Immunologic: Negative. Neurological: Negative. Hematological: Negative. Psychiatric/Behavioral: Negative. Negative for agitation, behavioral problems, dysphoric mood and sleep disturbance. The patient is not nervous/anxious. Past Medical History: Diagnosis Date Anxiety Asthma Depression Disease of thyroid gland hypothyroid Hodgkin's lymphoma (HCC) 09/2011 Lymphoma, Hodgkin's (HCC) Preeclampsia previous Social History Socioeconomic History Marital status: Tobacco Use Smoking status: Never Smokeless tobacco: Never Vaping Use Vaping Use: Never used Substance and Sexual Activity Alcohol use: Yes Drug use: Never Sexual activity: Yes Partners: Male Current Outpatient Medications Medication Sig Dispense Refill tirzepatide (Mounjaro) 10 mg/0.5 mL Pen Inject 0.5 mL (10 mg total) under the skin every 7 days Reasons: type 2 diabetes mellitus. 2 mL 1 albuterol 90 mcg/actuation inhaler Inhale 2 (two) puffs every 6 (six) hours as needed for shortness of breath or cough . 18 g 0 budesonide-formoteroL (Symbicort) 80-4.5 mcg/actuation inhaler Inhale 2 (two) puffs 2 (two) times a day . 1 each 2 buPROPion (WELLBUTRIN XL) 150 MG 24 hr tablet Take 1 (one) tablet (150 mg total) by mouth daily . 30 tablet 1 cyanocobalamin, vitamin B-12, 1,[address] 1 (one) tablet (1,000 mcg total) under the tongue daily . 30 tablet 2 ergocalciferol (ERGOCALCIFEROL) 1,250 mcg (50,000 unit) capsule Take 1 (one) capsule (50,000 Units total) by mouth once a week Take with 500mg vitamin c and fatty meal . 4 capsule 1 ferrous sulfate 325 (65 FE) MG tablet Take 1 (one) tablet (325 mg total) by mouth every other day Take with 500mg of vitamin c . 15 tablet 1 furosemide (LASIX) 20 MG tablet Take 20 mg by mouth 2 (two) times a day Reasons: visible water retention. inhaler, assist devices (OPTICHAMBER ADVANTAGE) Spcr As directed . 1 each 0 levothyroxine (SYNTHROID, LEVOTHROID) 137 MCG tablet Take 1 (one) tablet (137 mcg total) by mouth once daily . 30 tablet 1 ondansetron (ZOFRAN-ODT) 4 MG disintegrating tablet Dissolve 1 (one) tablet (4 mg total) on top of tongue every 8 (eight) hours as needed for nausea . 20 tablet 0 pyridoxine, vitamin B6, (vitamin B-6) 25 MG tablet Take 1 (one) tablet (25 mg total) by mouth daily . 30 tablet 2 sertraline (ZOLOFT) 25 MG tablet Take 1 (one) tablet (25 mg total) by mouth nightly . 30 tablet 1 topiramate (TOPAMAX) 25 MG tablet Take 1 (one) tablet (25 mg total) by mouth daily . 30 tablet 1 No current facility-administered medications for this visit. BP 112/81 Pulse 72 Ht 5' 5 (1.651 m) Wt 111.4 kg (245 lb 9.6 oz) SpO2 95% BMI 40.87 kg/m Physical Exam Vitals and nursing note reviewed. Constitutional: General: She is not in acute distress. Appearance: Normal appearance. She is obese. She is not ill-appearing, toxic-appearing or diaphoretic. Cardiovascular: Rate and Rhythm: Normal rate and regular rhythm. Heart sounds: Normal heart sounds. No murmur heard. No friction rub. No gallop. Pulmonary: Effort: Pulmonary effort is normal. No respiratory distress. Breath sounds: Normal breath sounds. No stridor. No wheezing, rhonchi or rales. Chest: Chest wall: No tenderness. Skin: General: Skin is warm and dry. Coloration: Skin is not jaundiced or pale. Neurological: General: No focal deficit present. Mental Status: She is alert and oriented to person, place, and time. Psychiatric: Mood and Affect: Mood normal. Behavior: Behavior normal. Thought Content: Thought content normal. Judgment: Judgment normal. Problem List Items Addressed This Visit Other Atypical eating disorder - Primary Relevant Medications buPROPion (WELLBUTRIN XL) 150 MG 24 hr tablet Other Visit Diagnoses Insulin resistance Relevant Medications tirzepatide (Mounjaro) 10 mg/0.5 mL Pen Obesity, Class III, BMI 40-49.9 (morbid obesity) (HCC) BMI 40.0-44.9, adult ([facility]) Vitamin D deficiency Relevant Medications ergocalciferol (ERGOCALCIFEROL) 1,250 mcg (50,000 unit) capsule Vitamin B6 deficiency Iron deficiency Relevant Orders CBC and Differential Hypothyroidism (acquired) Relevant Orders TSH T4, Free T3 Continue the currently prescribed calorie load and composition. Return in about 4 weeks (around 08/24/2022) for Follow Up. Counseling Time: minutes more than 50% of the time face to face discussing findings and coordinating care regarding medication management and education for disease processes and treatment protocol. Discussed elevated Body Mass Index (BMI): Advised regular exercise. Discussed elevated Body Mass Index (BMI): Advised healthy and appropriate diet. Discussed elevated Body Mass Index (BMI): Nutrition referral. Discussed elevated Body Mass Index (BMI): Reviewed high BMI, BMI is not an accurate measurement of obesity for this patient. Rationale: Overweight (Findings) BMI Diet: What do you usually have to eat for the following meals: Breakfast: usually skip, may have eggs & light/sausage Lunch: leftovers, tomatoes w/rodriguez, salad Dinner: steak/chicken/pork, veggie, spaghetti, tacos Number of snacks per day: maybe 1 or 2 if any Frequency of skipping meals per day if any: often What do you usually drink? Water, Tea, Pop, Juice, Coffee Do you drink alcohol? Rarely What type? Beer Wine Hard liquor Mixed Drinks How many drinks per week? 0 Physical Activity What are you currently doing as activity or exercise? Walking, housework How many times per week? 1-2 How long at each session? 30 minutes Appetite: Is your appetite well controlled at this time? For the most part Energy levels: Are your energy levels fairly good at this time? No Quality of Sleep: Are you sleeping well at this time? Somewhat How many hours of sleep per night? 5-6 Do you feel rested when you wake up in the morning? Not usually Do you have sleep apnea and if you do are you currently treated? No Level of Stress: What is the level of stress in your life currently? 5-6 most days. How is your general mood? OK, improving Medications: If you are currently taking any medication for your weight, are you having any problems with them? Unable to get Lukas as the pharmacy says it is a supplier issue documented in this encounter [facility] 06-17-[facility] History of Present illness Narrative Video Visit Patient: Aurora Mendez Date of : 1985 (37 y.o. female) PCP: Evi Pacheco MD Video Visit Consent Statement: I discussed risks, benefits and alternatives of a real-time synchronous audiovisual consultation with the patient (and any accompanying persons) including the risks that the patient s personal health details and medical records will be discussed over real-time, synchronous, interactive video/audio/telecommunication technology, the visit will not be recorded without the express consent of both the provider and the patient, and that there are some limitations compared to [id number] evaluations. We elected to proceed. Chief Complaint Patient presents with Weight Loss Obesity Patient Start time: Stop time: Pt who is a Body mass index is 42.6 kg/m . Patient's history of diet, exercise, sleep, stress and appetite control reviewed and confirmed with patient, please see the emergency medical services coordinator's note. This is a telemedicine encounter. This visit has been fully reviewed with the patient and verbal consent has been obtained. NOATAK: Patient here today for recheck through the [facility]. Patient admits to an increase in cravings and hunger since last visit. Energy levels are not at goal. Sleep is also not at goal. She states that some nights she feels restless and has trouble sleeping and other nights she sleeps a little better. She states some nights she knows it has to do with her significant other leaving the tv on while they sleep. She states he has to have it on and she has trouble sleeping with this and this contributes with these symptoms. Patient having trouble adhering to the diet and exercise protocols consistently due to her low energy levels. She feels she is eating much less and is not craving. She does report drinking quite a bit of soda stating she drinks at least a 20oz bottle of Pepsi daily. Medications were reviewed today. Pt states she has been tolerating medications well but states she has not been taking Topamax for at least a couple months. She states that she thought the higher dose of Topamax, 50 mg twice a day, was causing more headaches. She states headaches seem to be fine unless she is under more stress, which seems to be reasonably managed right now. For the rest of the review of systems and exam see the EMR. ASSESSMENT: 1. Atypical eating disorder 2. Insulin resistance Comprehensive Metabolic Panel Lipoprotein NMR Vitamin B12 3. Obesity, Class III, BMI 40-49.9 (morbid obesity) (HCC) 4. BMI 40.0-44.9, adult (HCC) 5. Vitamin D deficiency Vitamin D, Total, 25-OH 6. Vitamin B6 deficiency Vitamin B6 7. Iron deficiency Iron and TIBC CBC and Differential Ferritin 8. Hypothyroidism (acquired) TSH T4, Free T3 9. Metabolic syndrome tirzepatide (Mounjaro) 7.5 mg/0.5 mL Pen Plan: Patient will continue with Wellbutrin for volume control and we will trial back on Topamax to better help with volume control and reward eating, especially with soda intake. She will start back on low-dose of 25 mg dosed in the evening. We will continue to monitor but also discussed ways to work on redirection techniques to help with any reward eating. She will also continue with current dose of Mounjaro as she is doing well with medication. I will also recheck lab work to reevaluate insulin resistance status, as well as thyroid, iron and vitamin levels. We discussed making changes if needed. We also discussed working on sleep hygiene as this seems to be a challenge for her right now and is most likely contributing to her daily fatigue. We also discussed working on meeting dietary targets throughout the day, especially protein to carbohydrate ratios, to better help with insulin resistance. I also encouraged Pt to continue working on exercise within orthopedics to help with muscle acquisition. Patient will follow up in 1 month or sooner if needed. This note was partially created using voice recognition software and is inherently subject to errors including those of syntax and sound-alike substitutions which may escape proofreading. In such instances, original meaning may be extrapolated by contextual derivation Medications reviewed with patient. The following portions of the patient's history were reviewed and updated as appropriate: allergies, current medications, past family history, past medical history, past social history, past surgical history and problem list . Review of Systems Constitutional: Positive for appetite change (increased soda intake) and fatigue. HENT: Negative. Eyes: Negative. Respiratory: Negative. Negative for shortness of breath. Cardiovascular: Negative. Negative for chest pain. Gastrointestinal: Negative. Negative for abdominal pain, constipation, diarrhea, nausea and vomiting. Endocrine: Negative. Genitourinary: Negative. Musculoskeletal: Negative. Skin: Negative. Allergic/Immunologic: Negative. Neurological: Negative. Hematological: Negative. Psychiatric/Behavioral: Positive for sleep disturbance. Negative for agitation, behavioral problems and dysphoric mood. The patient is not nervous/anxious. Past Medical History: Diagnosis Date Anxiety Asthma Depression Disease of thyroid gland hypothyroid Hodgkin's lymphoma (HCC) 09/2011 Lymphoma, Hodgkin's (HCC) Preeclampsia previous Social History Socioeconomic History Marital status: Tobacco Use Smoking status: Never Smokeless tobacco: Never Vaping Use Vaping Use: Never used Substance and Sexual Activity Alcohol use: Yes Drug use: Never Sexual activity: Yes Partners: Male Current Outpatient Medications Medication Sig Dispense Refill albuterol 90 mcg/actuation inhaler Inhale 2 (two) puffs every 6 (six) hours as needed for shortness of breath or cough . 18 g 0 budesonide-formoteroL (Symbicort) 80-4.5 mcg/actuation inhaler Inhale 2 (two) puffs 2 (two) times a day . 1 each 2 buPROPion (WELLBUTRIN XL) 150 MG 24 hr tablet Take 1 (one) tablet (150 mg total) by mouth daily . 30 tablet 1 cyanocobalamin, vitamin B-12, 1,[address] 1 (one) tablet (1,000 mcg total) under the tongue daily . 30 tablet 2 ergocalciferol (ERGOCALCIFEROL) 1,250 mcg (50,000 unit) capsule Take 1 (one) capsule (50,000 Units total) by mouth once a week Take with 500mg vitamin c and fatty meal . 4 capsule 1 ferrous sulfate 325 (65 FE) MG tablet Take 1 (one) tablet (325 mg total) by mouth every other day Take with 500mg of vitamin c . 15 tablet 1 furosemide (LASIX) 20 MG tablet Take 20 mg by mouth 2 (two) times a day Reasons: visible water retention. inhaler, assist devices (OPTICHAMBER ADVANTAGE) Spcr As directed . 1 each 0 levothyroxine (SYNTHROID, LEVOTHROID) 137 MCG tablet Take 1 (one) tablet (137 mcg total) by mouth once daily . 30 tablet 1 ondansetron (ZOFRAN-ODT) 4 MG disintegrating tablet Dissolve 1 (one) tablet (4 mg total) on top of tongue every 8 (eight) hours as needed for nausea . 20 tablet 0 pyridoxine, vitamin B6, (vitamin B-6) 25 MG tablet Take 1 (one) tablet (25 mg total) by mouth daily . 30 tablet 2 sertraline (ZOLOFT) 25 MG tablet Take 1 (one) tablet (25 mg total) by mouth nightly . 30 tablet 1 tirzepatide (Mounjaro) 7.5 mg/0.5 mL Pen Inject 0.5 mL (7.5 mg total) under the skin every 7 days . 2 mL 1 topiramate (TOPAMAX) 25 MG tablet Take 1 (one) tablet (25 mg total) by mouth daily . 30 tablet 1 No current facility-administered medications for this visit. Problem List Items Addressed This Visit Other Atypical eating disorder - Primary Relevant Medications buPROPion (WELLBUTRIN XL) 150 MG 24 hr tablet Other Visit Diagnoses Insulin resistance Relevant Orders Comprehensive Metabolic Panel Lipoprotein NMR Vitamin B12 Obesity, Class III, BMI 40-49.9 (morbid obesity) (HCC) BMI 40.0-44.9, adult (HCC) Vitamin D deficiency Relevant Orders Vitamin D, Total, 25-OH Vitamin B6 deficiency Relevant Orders Vitamin B6 Iron deficiency Relevant Orders Iron and TIBC CBC and Differential Ferritin Hypothyroidism (acquired) Relevant Orders TSH T4, Free T3 Metabolic syndrome Relevant Medications tirzepatide (Mounjaro) 7.5 mg/0.5 mL Pen Continue the currently prescribed calorie load and composition. Return in about 4 weeks (around 07/15/2022) for Follow Up. Total Visit Time: minutes more than 50% of the time face to face discussing findings and coordinating care regarding medication management and education for disease processes and treatment protocol. Provider Location: [facility] [address] [facility] [id number] Patient Location: [facility] [address] [facility] [address] [facility] [address] What do you usually have to eat for the following meals: Breakfast - fasting or eggs & sausage/light Lunch - eggs w. light/sausage; salad; leftover dinners, turkey/RB wrap, pizza Dinner - chicken/pork chops/hamburger/steak, veggie/salad Number of snacks per day: 1-2 Frequency of skipping meals per day if any: daily What do you usually drink? Water, Tea, Pop, Juice, Coffee (have been real bad with the pop :( I admit) Do you drink alcohol? Rarely; Beer Hard liquor Mixed Drinks Physical Activity What are you currently doing as activity or exercise? None Any limitations you are currently having affecting your activity or exercise? Working longer hours, cleaning the house, kids hw and bed Appetite: Is your appetite well controlled at this time? Mostly Energy levels: Are your energy levels fairly good at this time? No, tired A LOT Quality of Sleep: Are you sleeping well at this time? No How many hours of sleep per night? 2-5 Do you feel rested when you wake up in the morning? No Do you have sleep apnea? No Level of Stress: What is the level of stress in your life currently? 6-8 depending How is your mood? Mainly anxious, minimal depression Medications: If you are currently taking any medication for your weight, are you having any problems with them? No Most recent weight: 256.2 documented in this encounter [facility] 05-17-2022 History of Present illness Narrative Video Visit Patient: Aurora Mendez Date of : 1985 (36 y.o. female) PCP: Evi Pacheco MD Video Visit Consent Statement: I discussed risks, benefits and alternatives of a real-time synchronous audiovisual consultation with the patient (and any accompanying persons) including the risks that the patient s personal health details and medical records will be discussed over real-time, synchronous, interactive video/audio/telecommunication technology, the visit will not be recorded without the express consent of both the provider and the patient, and that there are some limitations compared to [id number] evaluations. We elected to proceed. Chief Complaint Patient presents with Weight Loss Obesity Patient Start time: Stop time: Pt who is a Body mass index is 44.26 kg/m . Patient's history of diet, exercise, sleep, stress and appetite control reviewed and confirmed with patient, please see the emergency medical services coordinator's note. This is a telemedicine encounter. This visit has been fully reviewed with the patient and verbal consent has been obtained. NOATAK: Patient here today for recheck through the [facility]. Patient admits to an increase in cravings and hunger since last visit. She states she will feel hungry or cravings something, but will not necessarily overeat as she state she is unable to with her current medication regimen. Energy levels are reasonable. Sleep is reasonable. Patient having trouble adhering to the diet and exercise protocols consistently d/t appetite change. Medications were reviewed today and Pt denies any problems with medication. Stress levels are reasonably managed. For the rest of the review of systems and exam see the EMR. ASSESSMENT: 1. Atypical eating disorder 2. Insulin resistance tirzepatide (Mounjaro) 5 mg/0.5 mL Pen 3. Obesity, Class III, BMI 40-49.9 (morbid obesity) (HCC) 4. BMI 40.0-44.9, adult (HCC) tirzepatide (Mounjaro) 5 mg/0.5 mL Pen 5. Vitamin D deficiency 6. Vitamin B6 deficiency 7. Iron deficiency 8. Hypothyroidism (acquired) Plan: Patient will continue with Wellbutrin for volume control. She did stop Topamax as she felt that this was increasing her headaches/migraines. She will continue off of medication at this time but we did discuss ways to work on redirection techniques to help with reward eating. I will switch patient from Trulicity to Mounjro to see if this better helps with glucose regulation, as well as meal termination and weight loss. I did discuss risk versus benefits, as well as mechanism of action of medication. She will continue with iron and vitamin supplementation due to history of deficiency. She will also continue with current dose of levothyroxine for hypothyroidism. We also discussed working on meeting dietary targets throughout the day, especially protein to carbohydrate ratios, to better help with insulin resistance. I also encouraged Pt to continue working on exercise within orthopedics to help with muscle acquisition. Patient will follow up in 1 month or sooner if needed. This note was partially created using voice recognition software and is inherently subject to errors including those of syntax and sound-alike substitutions which may escape proofreading. In such instances, original meaning may be extrapolated by contextual derivation Medications reviewed with patient. The following portions of the patient's history were reviewed and updated as appropriate: allergies, current medications, past family history, past medical history, past social history, past surgical history and problem list . Review of Systems Constitutional: Positive for appetite change. Negative for fatigue. HENT: Negative. Eyes: Negative. Respiratory: Negative. Negative for shortness of breath. Cardiovascular: Negative. Negative for chest pain. Gastrointestinal: Negative. Negative for abdominal pain, constipation, diarrhea, nausea and vomiting. Endocrine: Negative. Genitourinary: Negative. Musculoskeletal: Negative. Skin: Negative. Allergic/Immunologic: Negative. Neurological: Negative. Hematological: Negative. Psychiatric/Behavioral: Negative. Negative for agitation, behavioral problems, dysphoric mood and sleep disturbance. The patient is not nervous/anxious. Past Medical History: Diagnosis Date Anxiety Asthma Depression Disease of thyroid gland hypothyroid Hodgkin's lymphoma (HCC) 09/2011 Lymphoma, Hodgkin's (HCC) Preeclampsia previous Social History Socioeconomic History Marital status: Tobacco Use Smoking status: Never Smokeless tobacco: Never Vaping Use Vaping Use: Never used Substance and Sexual Activity Alcohol use: Yes Drug use: Never Sexual activity: Yes Partners: Male Current Outpatient Medications Medication Sig Dispense Refill albuterol 90 mcg/actuation inhaler Inhale 2 (two) puffs every 6 (six) hours as needed for shortness of breath or cough . 18 g 0 budesonide-formoteroL (Symbicort) 80-4.5 mcg/actuation inhaler Inhale 2 (two) puffs 2 (two) times a day . 1 each 2 buPROPion (WELLBUTRIN XL) 150 MG 24 hr tablet Take 1 (one) tablet (150 mg total) by mouth daily . 30 tablet 1 cyanocobalamin, vitamin B-12, 1,[address] 1 (one) tablet (1,000 mcg total) under the tongue daily . 30 tablet 2 dulaglutide (Trulicity) 3 mg/0.5 mL Pen Inject 0.5 mL (3 mg total) under the skin every 7 days . 2 mL 1 ergocalciferol (ERGOCALCIFEROL) 1,250 mcg (50,000 unit) capsule Take 1 (one) capsule (50,000 Units total) by mouth once a week Take with 500mg vitamin c and fatty meal . 4 capsule 1 ferrous sulfate 325 (65 FE) MG tablet Take 1 (one) tablet (325 mg total) by mouth every other day Take with 500mg of vitamin c . 15 tablet 1 furosemide (LASIX) 20 MG tablet Take 20 mg by mouth 2 (two) times a day Reasons: visible water retention. inhaler, assist devices (OPTICHAMBER ADVANTAGE) Spcr As directed . 1 each 0 levothyroxine (SYNTHROID, LEVOTHROID) 137 MCG tablet Take 1 (one) tablet (137 mcg total) by mouth once daily . 30 tablet 1 ondansetron (ZOFRAN-ODT) 4 MG disintegrating tablet Dissolve 1 (one) tablet (4 mg total) on top of tongue every 8 (eight) hours as needed for nausea . 20 tablet 0 pyridoxine, vitamin B6, (vitamin B-6) 25 MG tablet Take 1 (one) tablet (25 mg total) by mouth daily . 30 tablet 2 sertraline (ZOLOFT) 25 MG tablet Take 1 (one) tablet (25 mg total) by mouth nightly . 30 tablet 1 tirzepatide (Mounjaro) 5 mg/0.5 mL Pen Inject 0.5 mL (5 mg total) under the skin every 7 days . 2 mL 1 topiramate (TOPAMAX) 50 MG tablet Take 1 (one) tablet (50 mg total) by mouth 2 (two) times a day One with lunch and one with dinner . 60 tablet 1 No current facility-administered medications for this visit. Problem List Items Addressed This Visit Other Atypical eating disorder - Primary Other Visit Diagnoses Insulin resistance Relevant Medications tirzepatide (Mounjaro) 5 mg/0.5 mL Pen Obesity, Class III, BMI 40-49.9 (morbid obesity) (HCC) BMI 40.0-44.9, adult (HCC) Relevant Medications tirzepatide (Mounjaro) 5 mg/0.5 mL Pen Vitamin D deficiency Vitamin B6 deficiency Iron deficiency Hypothyroidism (acquired) Continue the currently prescribed calorie load and composition. Return in about 4 weeks (around 06/14/2022) for Follow Up. Total Visit Time: minutes more than 50% of the time face to face discussing findings and coordinating care regarding medication management and education for disease processes and treatment protocol. Provider Location: [facility] [address] [facility] [id number] Patient Location: [address] [facility] [address] Diet: What do you usually have to eat for the following meals: Breakfast: fasting, but will sometimes break fast and eat eggs with sausage/light, toast, bagel, oatmeal, cereal Lunch: leftover dinners, salad, grilled cheese, cereal, eggs and breakfast meat Dinner: chicken/pork chops/steak/hamburger, veggie, salad Number of snacks per day: 2-3 Frequency of skipping meals per day if any: often What do you usually drink? Water, Tea, Pop, Juice, Coffee Do you drink alcohol? What type? Beer Wine Hard liquor Mixed Drinks How many drinks per week? 0 Physical Activity What are you currently doing as activity or exercise? Walking, home exercises How many times per week? 2 How long at each session? 15-30 min Any limitations you are currently having affecting your activity or exercise? Back pain Appetite: Is your appetite well controlled at this time? For the most part, yes. Energy levels: Are your energy levels fairly good at this time? Sometimes Quality of Sleep: Are you sleeping well at this time? Sometimes How many hours of sleep per night? 5-7 Do you feel rested when you wake up in the morning? Sometimes Do you have sleep apnea and if you do are you currently treated? No Level of Stress: What is the level of stress in your life currently? 6 How is your general mood? Ok Medications: If you are currently taking any medication for your weight, are you having any problems with them? No Most recent weight: 266 documented in this encounter [facility] 04-15-[facility]22 History of Present illness Narrative Chief Complaint Patient presents with Weight Loss Obesity NOATAK: Pt who is a Body mass index is 45 kg/m . Patient's history of diet, exercise, sleep, stress and appetite control reviewed and confirmed with patient, please see the emergency medical services coordinator's note. HPI: Patient here today for recheck through the [facility]. Patient denies any increase in cravings or hunger. Energy levels are fair. Sleep is reasonable. Patient feels she is able to adhere to the dietary protocols as ordered since last appointment but admits she has not been exercising. Pt states she had Covid last month and her energy has been slow to improve. Medications were reviewed today and no problems noted. For the rest of the review of systems and exam see the EMR. Impression: 1. Atypical eating disorder, 2. Insulin resistance, 3. Obesity class III, 4. BMI 45.0-49.9, 5. Vitamin D deficiency, 6. Vitamin B6 deficiency, 7. Iron deficiency, 8. Hypothyroidism Plan: Patient will finish her leftover phentermine for appetite control as she has done very well with medication and still has about 2 weeks of medication left from last prescription. She will also continue with Wellbutrin for volume control. We will also increase Trulicity to better help with meal termination and glucose regulation as she is tolerating this well. She will continue with iron and vitamin supplementation due to history of deficiency. She will also continue with levothyroxine for hypothyroidism. Pt will have repeat lab work completed today to recheck thyroid levels and I will make adjustments as needed. We also discussed working on meeting dietary targets throughout the day, especially protein to carbohydrate ratios, to better help with insulin resistance. I also encouraged Pt to continue working on exercise within orthopedics to help with muscle acquisition. Patient will follow up in 1 month or sooner if needed. This note was partially created using voice recognition software and is inherently subject to errors including those of syntax and sound-alike substitutions which may escape proofreading. In such instances, original meaning may be extrapolated by contextual derivation Medications reviewed with patient. The following portions of the patient's history were reviewed and updated as appropriate: allergies, current medications, past family history, past medical history, past social history, past surgical history and problem list . Review of Systems Constitutional: Positive for fatigue (improving some, worsened with Covid this past month). Negative for appetite change. HENT: Negative. Eyes: Negative. Respiratory: Negative. Negative for cough, chest tightness and shortness of breath. Cardiovascular: Negative. Negative for chest pain and palpitations. Gastrointestinal: Negative. Negative for abdominal pain, constipation, diarrhea, nausea and vomiting. Endocrine: Negative. Genitourinary: Negative. Musculoskeletal: Negative. Skin: Negative. Allergic/Immunologic: Negative. Neurological: Negative. Hematological: Negative. Psychiatric/Behavioral: Negative. Negative for agitation, behavioral problems, dysphoric mood and sleep disturbance. The patient is not nervous/anxious. Past Medical History: Diagnosis Date Anxiety Asthma Depression Disease of thyroid gland hypothyroid Hodgkin's lymphoma (HCC) 09/2011 Lymphoma, Hodgkin's (HCC) Preeclampsia previous Social History Socioeconomic History Marital status: Tobacco Use Smoking status: Never Smokeless tobacco: Never Vaping Use Vaping Use: Never used Substance and Sexual Activity Alcohol use: Yes Drug use: Never Sexual activity: Yes Partners: Male Current Outpatient Medications Medication Sig Dispense Refill albuterol 90 mcg/actuation inhaler Inhale 2 (two) puffs every 6 (six) hours as needed for shortness of breath or cough . 18 g 0 budesonide-formoteroL (Symbicort) 80-4.5 mcg/actuation inhaler Inhale 2 (two) puffs 2 (two) times a day . 1 each 2 cyanocobalamin, vitamin B-12, 1,[address] 1 (one) tablet (1,000 mcg total) under the tongue daily . 30 tablet 2 dulaglutide (Trulicity) 3 mg/0.5 mL Pen Inject 0.5 mL (3 mg total) under the skin every 7 days . 2 mL 1 ergocalciferol (ERGOCALCIFEROL) 1,250 mcg (50,000 unit) capsule Take 1 (one) capsule (50,000 Units total) by mouth once a week Take with 500mg vitamin c and fatty meal . 4 capsule 1 ferrous sulfate 325 (65 FE) MG tablet Take 1 (one) tablet (325 mg total) by mouth every other day Take with 500mg of vitamin c . 15 tablet 1 furosemide (LASIX) 20 MG tablet Take 20 mg by mouth 2 (two) times a day Reasons: visible water retention. inhaler, assist devices (OPTICHAMBER ADVANTAGE) Spcr As directed . 1 each 0 levothyroxine (SYNTHROID, LEVOTHROID) 137 MCG tablet Take 1 (one) tablet (137 mcg total) by mouth once daily . 30 tablet 1 phentermine (ADIPEX-P) 37.5 mg tablet Take 1 (one) tablet (37.5 mg total) by mouth every morning (Days supply per fill: 30) BMI 50.07 now 45.85 round #3 . 30 tablet 0 pyridoxine, vitamin B6, (vitamin B-6) 25 MG tablet Take 1 (one) tablet (25 mg total) by mouth daily . 30 tablet 2 sertraline (ZOLOFT) 25 MG tablet Take 1 (one) tablet (25 mg total) by mouth nightly . 30 tablet 1 buPROPion (WELLBUTRIN XL) 150 MG 24 hr tablet Take 1 (one) tablet (150 mg total) by mouth daily . 30 tablet 1 ondansetron (ZOFRAN-ODT) 4 MG disintegrating tablet Dissolve 1 (one) tablet (4 mg total) on top of tongue every 8 (eight) hours as needed for nausea . 20 tablet 0 topiramate (TOPAMAX) 50 MG tablet Take 1 (one) tablet (50 mg total) by mouth 2 (two) times a day One with lunch and one with dinner . 60 tablet 1 No current facility-administered medications for this visit. BP (!) 119/92 Pulse 98 Ht 5' 5 (1.651 m) Wt 122.7 kg (270 lb 6.4 oz) SpO2 98% BMI 45.00 kg/m Physical Exam Vitals and nursing note reviewed. Constitutional: General: She is not in acute distress. Appearance: Normal appearance. She is obese. She is not ill-appearing, toxic-appearing or diaphoretic. Cardiovascular: Rate and Rhythm: Normal rate and regular rhythm. Heart sounds: Normal heart sounds. No murmur heard. No friction rub. No gallop. Pulmonary: Effort: Pulmonary effort is normal. No respiratory distress. Breath sounds: Normal breath sounds. No stridor. No wheezing, rhonchi or rales. Chest: Chest wall: No tenderness. Musculoskeletal: Right lower leg: Edema (Mild, nonpitting, improving) present. Left lower leg: Edema (Mild, nonpitting, improving) present. Skin: General: Skin is warm and dry. Coloration: Skin is not jaundiced or pale. Neurological: General: No focal deficit present. Mental Status: She is alert and oriented to person, place, and time. Psychiatric: Mood and Affect: Mood normal. Behavior: Behavior normal. Thought Content: Thought content normal. Judgment: Judgment normal. Problem List Items Addressed This Visit Other Atypical eating disorder - Primary Relevant Medications buPROPion (WELLBUTRIN XL) 150 MG 24 hr tablet Other Visit Diagnoses Insulin resistance Relevant Medications dulaglutide (Trulicity) 3 mg/0.5 mL Pen Obesity, Class III, BMI 40-49.9 (morbid obesity) (HCC) BMI 45.0-49.9, adult (HCC) Vitamin D deficiency Vitamin B6 deficiency Iron deficiency Hypothyroidism (acquired) Relevant Orders TSH T4, Free T3 Continue the currently prescribed calorie load and composition. Return in about 4 weeks (around 05/13/2022) for Follow Up. Counseling Time: minutes more than 50% of the time face to face discussing findings and coordinating care regarding medication management and education for disease processes and treatment protocol. Discussed elevated Body Mass Index (BMI): Advised regular exercise. Discussed elevated Body Mass Index (BMI): Advised healthy and appropriate diet. Discussed elevated Body Mass Index (BMI): Nutrition referral. Discussed elevated Body Mass Index (BMI): Reviewed high BMI, BMI is not an accurate measurement of obesity for this patient. Rationale: Overweight (Findings) BMI Breakfast - N/A - fast Lunch - nothing, leftovers from dinner previous night, yogurt, salad, sandwich, tomatoes w/Rodriguez, eggs w/ sausage or light Dinner - chicken/steak/pork chops/fish, veggie (broccoli, fresh green beans, asparagus, carrots, etc), salad, potatoes (baked/mashed/air fried or oven fried), leftover from previous night Number of snacks per day: 1-2 Frequency of skipping meals per day if any: daily What do you usually drink? Water, Tea, Pop, Juice, Coffee Do you drink alcohol? Rarely What type? Beer Wine Hard liquor Mixed Drinks How many drinks per week? 0 What are you currently doing as activity or exercise? Walking, but need to increase frequency How many times per week? 1 or 2 How long at each session? 30 minutes Any limitations you are currently having affecting your activity or exercise? SOB, back pain Is your appetite well controlled at this time? Somewhat Are your energy levels fairly good at this time? No Are you sleeping well at this time? No How many hours of sleep per night? 5-6 most nights, occasionally 4 Do you feel rested when you wake up in the morning? No Do you have sleep apnea and if you do are you currently treated? No What is the level of stress in your life currently?- 7-8 How is your general mood? Depressed? Anxious? Or OK? Okay Medications: If you are currently taking any medication for your weight, are you having any problems with them? Yes. Topamax has been giving me headaches documented in this encounter [facility] 03-15-[facility] History of Present illness Narrative Chief Complaint Patient presents with Weight Loss Obesity NOATAK: Pt who is a Body mass index is 45.85 kg/m . Patient's history of diet, exercise, sleep, stress and appetite control reviewed and confirmed with patient, please see the emergency medical services coordinator's note. HPI: Patient here today for recheck through the [facility]. Patient denies any increase in cravings or hunger. Energy levels are reasonable. Sleep is reasonable. Patient feels she is better able to adhere to the diet and exercise protocols as ordered since last appointment. Medications were reviewed today and no problems noted. She states she continues to feel improvement with her appetite control with phentermine and Trulicity. She states she is tolerating medications well. She was also seen by her PCP since last appointment due to ongoing leg swelling in bilateral legs. She was started on Lasix 20 mg twice daily and has been taking this consistently for the past 2 weeks. She states that her swelling has decreased tremendously and she feels a lot better. stress levels are reasonably managed but she states stress levels are increased d/t home stressors as she has been having some trouble with her relationship with her significant other. She feels she is handling this well as she did not find herself stress eating or turning to food for comfort. For the rest of the review of systems and exam see the EMR. Impression: 1. Atypical eating disorder, 2. Insulin resistance, 3. Morbid obesity now down to obesity class III, 4. Obesity class III, 5. BMI 45.0-49.9, 6. Vitamin D deficiency, 7. Vitamin B6 deficiency, 8. Iron deficiency, 9. Hypothyroidism, 10. Leg swelling improving Plan: Patient will continue with phentermine for round #3 for appetite control as she is doing very well with medication. She will also continue with Wellbutrin for volume control and current dose of Trulicity for meal termination. She is also tolerating these medications well and feels improvement with appetite control with medication. she will continue with iron and vitamin supplementation due to history of deficiency. She will also continue with levothyroxine for hypothyroidism. Pt will have repeat lab work completed to recheck thyroid levels. We will make adjustments as needed. She will also continue follow-up with PCP for treatment of bilateral lower extremity edema with Lasix as she is seeing improvement with management. We also discussed working on meeting dietary targets throughout the day, especially protein to carbohydrate ratios, to better help with insulin resistance. I also encouraged Pt to continue working on exercise within orthopedics to help with muscle acquisition. Patient will follow up in 1 month or sooner if needed. This note was partially created using voice recognition software and is inherently subject to errors including those of syntax and sound-alike substitutions which may escape proofreading. In such instances, original meaning may be extrapolated by contextual derivation Medications reviewed with patient. The following portions of the patient's history were reviewed and updated as appropriate: allergies, current medications, past family history, past medical history, past social history, past surgical history and problem list . Review of Systems Constitutional: Negative. Negative for appetite change and fatigue. HENT: Negative. Eyes: Negative. Respiratory: Negative. Negative for cough, chest tightness and shortness of breath. Cardiovascular: Positive for leg swelling (bilateral feet and ankles, improving since last appointment). Negative for chest pain and palpitations. Gastrointestinal: Negative. Negative for abdominal pain, constipation, diarrhea, nausea and vomiting. Endocrine: Negative. Genitourinary: Negative. Musculoskeletal: Negative. Skin: Negative. Allergic/Immunologic: Negative. Neurological: Negative. Hematological: Negative. Psychiatric/Behavioral: Negative. Negative for agitation, behavioral problems, dysphoric mood and sleep disturbance. The patient is not nervous/anxious. Past Medical History: Diagnosis Date Anxiety Asthma Depression Disease of thyroid gland hypothyroid Hodgkin's lymphoma (HCC) 09/2011 Lymphoma, Hodgkin's (HCC) Preeclampsia previous Social History Socioeconomic History Marital status: Tobacco Use Smoking status: Never Smokeless tobacco: Never Vaping Use Vaping Use: Never used Substance and Sexual Activity Alcohol use: Yes Drug use: Never Sexual activity: Yes Partners: Male Current Outpatient Medications Medication Sig Dispense Refill albuterol 90 mcg/actuation inhaler Inhale 2 (two) puffs every 6 (six) hours as needed for shortness of breath or cough . 18 g 0 budesonide-formoteroL (Symbicort) 80-4.5 mcg/actuation inhaler Inhale 2 (two) puffs 2 (two) times a day . 1 each 2 cyanocobalamin, vitamin B-12, 1,[address] 1 (one) tablet (1,000 mcg total) under the tongue daily . 30 tablet 2 ergocalciferol (ERGOCALCIFEROL) 1,250 mcg (50,000 unit) capsule Take 1 (one) capsule (50,000 Units total) by mouth once a week Take with 500mg vitamin c and fatty meal . 4 capsule 1 ferrous sulfate 325 (65 FE) MG tablet Take 1 (one) tablet (325 mg total) by mouth every other day Take with 500mg of vitamin c . 15 tablet 1 furosemide (LASIX) 20 MG tablet Take 20 mg by mouth 2 (two) times a day Reasons: visible water retention. inhaler, assist devices (OPTICHAMBER ADVANTAGE) Spcr As directed . 1 each 0 levothyroxine (SYNTHROID, LEVOTHROID) 137 MCG tablet Take 1 (one) tablet (137 mcg total) by mouth once daily . 30 tablet 1 pyridoxine, vitamin B6, (vitamin B-6) 25 MG tablet Take 1 (one) tablet (25 mg total) by mouth daily . 30 tablet 2 sertraline (ZOLOFT) 25 MG tablet Take 1 (one) tablet (25 mg total) by mouth nightly . 30 tablet 1 buPROPion (WELLBUTRIN XL) 150 MG 24 hr tablet Take 1 (one) tablet (150 mg total) by mouth daily . 30 tablet 1 dulaglutide (Trulicity) 1.5 mg/0.5 mL Pen Inject 0.5 mL (1.5 mg total) under the skin every 7 days . 2 mL 1 ondansetron (ZOFRAN-ODT) 4 MG disintegrating tablet Dissolve 1 (one) tablet (4 mg total) on top of tongue every 8 (eight) hours as needed for nausea . 20 tablet 0 phentermine (ADIPEX-P) 37.5 mg tablet Take 1 (one) tablet (37.5 mg total) by mouth every morning (Days supply per fill: 30) BMI 50.07 now 45.85 round #3 . 30 tablet 0 topiramate (TOPAMAX) 50 MG tablet Take 1 (one) tablet (50 mg total) by mouth 2 (two) times a day One with lunch and one with dinner . 60 tablet 1 No current facility-administered medications for this visit. BP 112/78 Pulse 96 Ht 5' 5 (1.651 m) Wt 125 kg (275 lb 8 oz) SpO2 97% BMI 45.85 kg/m Physical Exam Vitals and nursing note reviewed. Constitutional: General: She is not in acute distress. Appearance: Normal appearance. She is obese. She is not ill-appearing, toxic-appearing or diaphoretic. Cardiovascular: Rate and Rhythm: Normal rate and regular rhythm. Heart sounds: Normal heart sounds. No murmur heard. No friction rub. No gallop. Pulmonary: Effort: Pulmonary effort is normal. No respiratory distress. Breath sounds: Normal breath sounds. No stridor. No wheezing, rhonchi or rales. Chest: Chest wall: No tenderness. Musculoskeletal: Right lower leg: Edema (Mild, nonpitting) present. Left lower leg: Edema (Mild, nonpitting) present. Skin: General: Skin is warm and dry. Coloration: Skin is not jaundiced or pale. Neurological: General: No focal deficit present. Mental Status: She is alert and oriented to person, place, and time. Psychiatric: Mood and Affect: Mood normal. Behavior: Behavior normal. Thought Content: Thought content normal. Judgment: Judgment normal. Problem List Items Addressed This Visit Other Leg swelling Atypical eating disorder - Primary Relevant Medications phentermine (ADIPEX-P) 37.5 mg tablet buPROPion (WELLBUTRIN XL) 150 MG 24 hr tablet Other Visit Diagnoses Insulin resistance Relevant Medications dulaglutide (Trulicity) 1.5 mg/0.5 mL Pen Obesity, morbid, BMI 50 or higher ([facility]) Relevant Medications phentermine (ADIPEX-P) 37.5 mg tablet Obesity, Class III, BMI 40-49.9 (morbid obesity) (HCC) BMI 45.0-49.9, adult (HCC) Vitamin D deficiency Vitamin B6 deficiency Iron deficiency Hypothyroidism (acquired) Continue the currently prescribed calorie load and composition. Return in about 4 weeks (around 04/12/2022) for Follow Up. Counseling Time: minutes more than 50% of the time face to face discussing findings and coordinating care regarding medication management and education for disease processes and treatment protocol. Discussed elevated Body Mass Index (BMI): Advised regular exercise. Discussed elevated Body Mass Index (BMI): Advised healthy and appropriate diet. Discussed elevated Body Mass Index (BMI): Nutrition referral. Discussed elevated Body Mass Index (BMI): Reviewed high BMI, BMI is not an accurate measurement of obesity for this patient. Rationale: Overweight (Findings) BMI What do you usually have to eat for the following meals: Breakfast - fasting Lunch - nothing/leftover dinners/salad/fruit/veggies/cheese Dinner - steak/chicken, pasta, veggie, salad Number of snacks per day: 1-2 if any Frequency of skipping meals per day if any: daily What do you usually drink? Water, Tea, Pop, Juice, Coffee Do you drink alcohol? What type? Beer Wine Hard liquor Mixed Drinks How many drinks per week? Less than 1 Physical Activity What are you currently doing as activity or exercise? Cleaning, walking How many times per week? 2-3 How long at each session? 30 min Any limitations you are currently having affecting your activity or exercise? Back pain, shortness of breath, ankle swelling Appetite: Is your appetite well controlled at this time? Yes Energy levels: Are your energy levels fairly good at this time? Somewhat Quality of Sleep: Are you sleeping well at this time? Somewhat How many hours of sleep per night? 5-7 Do you feel rested when you wake up in the morning? No Do you have sleep apnea and if you do are you currently treated? No Level of Stress: What is the level of stress in your life currently? 8 How is your general mood? Depressed? Anxious? Or OK? Anxious Medications: If you are currently taking any medication for your weight, are you having any problems with them? No documented in this encounter [facility] 02[facility] History of Present illness Narrative Chief Complaint Patient presents with Weight Loss Obesity NOATAK: Pt who is a Body mass index is 48.38 kg/m . Patient's history of diet, exercise, sleep, stress and appetite control reviewed and confirmed with patient, please see the emergency medical services coordinator's note. HPI: Patient here today for recheck through the [facility]. Patient denies any increase in cravings or hunger. Energy levels are reasonable. Sleep is reasonable. Patient feels she is better able to adhere to the diet and exercise protocols as ordered since last appointment. She states the only problem she is really having is ongoing swelling in her lower extremities. She states she was given Lasix to take as needed by her PCP but states she really needs this every day as she has swelling in her feet and ankles daily. She admits that she is not drinking water as much as she should but she does try to elevate her feet when she can. Medications were reviewed today and no problems noted. She states she feels great improvement with her appetite since starting phentermine. stress levels are reasonably managed. For the rest of the review of systems and exam see the EMR. Impression: 1. Atypical eating disorder, 2. Insulin resistance, 3. Morbid obesity now down to obesity class III, 4. Obesity class III, 5. BMI 45.0-49.9, 6. Vitamin D deficiency, 7. Vitamin B6 deficiency, 8. Iron deficiency, 9. Hypothyroidism, 10. Leg swelling Plan:. Patient will continue with phentermine for round #2 for appetite control she is doing very well with medication. She will also continue with Wellbutrin for volume control and Trulicity for meal termination. She will continue with iron and vitamin supplementation due to history of deficiency. She will also continue with levothyroxine for hypothyroidism but will have repeat lab work completed today to check thyroid. We will make adjustments as needed. I will also recheck vitamin levels and electrolytes today with lactitol. I discussed with patient that we may consider a daily medication due to chronic swelling, but I may refer back to PCP as Lasix was originally prescribed by PCP.I will wait for results. We also discussed working on meeting dietary targets throughout the day, especially protein to carbohydrate ratios, to better help with insulin resistance. I also encouraged Pt to continue working on exercise within orthopedics to help with muscle acquisition. Patient will follow up in 1 month or sooner if needed. This note was partially created using voice recognition software and is inherently subject to errors including those of syntax and sound-alike substitutions which may escape proofreading. In such instances, original meaning may be extrapolated by contextual derivation Medications reviewed with patient. The following portions of the patient's history were reviewed and updated as appropriate: allergies, current medications, past family history, past medical history, past social history, past surgical history and problem list . Review of Systems Constitutional: Negative. Negative for appetite change and fatigue. HENT: Negative. Eyes: Negative. Respiratory: Negative. Negative for cough, chest tightness and shortness of breath. Cardiovascular: Positive for leg swelling (bilateral feet and ankles). Negative for chest pain and palpitations. Gastrointestinal: Negative. Negative for abdominal pain, constipation, diarrhea, nausea and vomiting. Endocrine: Negative. Genitourinary: Negative. Musculoskeletal: Negative. Skin: Negative. Allergic/Immunologic: Negative. Neurological: Negative. Hematological: Negative. Psychiatric/Behavioral: Negative. Negative for agitation, behavioral problems, dysphoric mood and sleep disturbance. The patient is not nervous/anxious. Past Medical History: Diagnosis Date Anxiety Asthma Depression Disease of thyroid gland hypothyroid Hodgkin's lymphoma (HCC) 09/2011 Lymphoma, Hodgkin's (HCC) Preeclampsia previous Social History Socioeconomic History Marital status: Tobacco Use Smoking status: Never Smokeless tobacco: Never Vaping Use Vaping Use: Never used Substance and Sexual Activity Alcohol use: Yes Drug use: Never Sexual activity: Yes Partners: Male Current Outpatient Medications Medication Sig Dispense Refill albuterol 90 mcg/actuation inhaler Inhale 2 (two) puffs every 6 (six) hours as needed for shortness of breath or cough . 18 g 0 budesonide-formoteroL (Symbicort) 80-4.5 mcg/actuation inhaler Inhale 2 (two) puffs 2 (two) times a day . 1 each 2 cyanocobalamin, vitamin B-12, 1,[address] 1 (one) tablet (1,000 mcg total) under the tongue daily . 30 tablet 2 ergocalciferol (ERGOCALCIFEROL) 1,250 mcg (50,000 unit) capsule Take 1 (one) capsule (50,000 Units total) by mouth once a week Take with 500mg vitamin c and fatty meal . 4 capsule 1 ferrous sulfate 325 (65 FE) MG tablet Take 1 (one) tablet (325 mg total) by mouth every other day Take with 500mg of vitamin c . 15 tablet 1 inhaler, assist devices (OPTICHAMBER ADVANTAGE) Spcr As directed . 1 each 0 pyridoxine, vitamin B6, (vitamin B-6) 25 MG tablet Take 1 (one) tablet (25 mg total) by mouth daily . 30 tablet 2 sertraline (ZOLOFT) 25 MG tablet Take 1 (one) tablet (25 mg total) by mouth nightly . 30 tablet 1 buPROPion (WELLBUTRIN XL) 150 MG 24 hr tablet Take 1 (one) tablet (150 mg total) by mouth daily . 30 tablet 1 dulaglutide (Trulicity) 1.5 mg/0.5 mL Pen Inject 0.5 mL (1.5 mg total) under the skin every 7 days . 2 mL 1 levothyroxine (SYNTHROID, LEVOTHROID) 137 MCG tablet Take 1 (one) tablet (137 mcg total) by mouth once daily . 30 tablet 1 ondansetron (ZOFRAN-ODT) 4 MG disintegrating tablet Dissolve 1 (one) tablet (4 mg total) on top of tongue every 8 (eight) hours as needed for nausea . 20 tablet 0 phentermine (ADIPEX-P) 37.5 mg tablet Take 1 (one) tablet (37.5 mg total) by mouth every morning (Days supply per fill: 30) BMI 50.07 now 48.4 round #2 . 30 tablet 0 topiramate (TOPAMAX) 50 MG tablet Take 1 (one) tablet (50 mg total) by mouth 2 (two) times a day One with lunch and one with dinner . 60 tablet 1 No current facility-administered medications for this visit. BP 122/81 Pulse (!) 105 Ht 5' 5 (1.651 m) Wt 131.9 kg (290 lb 11.2 oz) SpO2 98% BMI 48.38 kg/m Physical Exam Vitals and nursing note reviewed. Constitutional: General: She is not in acute distress. Appearance: Normal appearance. She is obese. She is not ill-appearing, toxic-appearing or diaphoretic. Cardiovascular: Rate and Rhythm: Normal rate and regular rhythm. Heart sounds: Normal heart sounds. Pulmonary: Effort: Pulmonary effort is normal. No respiratory distress. Breath sounds: Normal breath sounds. No stridor. No wheezing, rhonchi or rales. Chest: Chest wall: No tenderness. Musculoskeletal: Right lower leg: Edema (1+ pitting, ankles, no discoloration) present. Left lower leg: Edema (1+ pitting edema, no discoloration) present. Neurological: General: No focal deficit present. Mental Status: She is alert and oriented to person, place, and time. Psychiatric: Mood and Affect: Mood normal. Behavior: Behavior normal. Thought Content: Thought content normal. Judgment: Judgment normal. Problem List Items Addressed This Visit Other Leg swelling Atypical eating disorder - Primary Relevant Medications buPROPion (WELLBUTRIN XL) 150 MG 24 hr tablet Other Visit Diagnoses Insulin resistance Relevant Medications dulaglutide (Trulicity) 1.5 mg/0.5 mL Pen Obesity, morbid, BMI 50 or higher (HCC) Obesity, Class III, BMI 40-49.9 (morbid obesity) (HCC) BMI 45.0-49.9, adult (HCC) Vitamin D deficiency Vitamin B6 deficiency Iron deficiency Hypothyroidism (acquired) Continue the currently prescribed calorie load and composition. Return in about 4 weeks (around 03/11/2022) for Follow Up. Counseling Time: minutes more than 50% of the time face to face discussing findings and coordinating care regarding medication management and education for disease processes and treatment protocol. Discussed elevated Body Mass Index (BMI): Advised regular exercise. Discussed elevated Body Mass Index (BMI): Advised healthy and appropriate diet. Discussed elevated Body Mass Index (BMI): Nutrition referral. Discussed elevated Body Mass Index (BMI): Reviewed high BMI, BMI is not an accurate measurement of obesity for this patient. Rationale: Overweight (Findings) BMI What do you usually have to eat for the following meals: Breakfast: fast, but occasionally eggs, sausage/light Lunch: salad, leftovers from dinner nitr beforr, pizza, fruit Dinner: steak, chicken, pork chops/tenderloin, salad, veggie, spaghetti Number of snacks per day: 1-2 occasionally Frequency of skipping meals per day if any: almost daily What do you usually drink? Water, Tea, Pop, Juice, Coffee Do you drink alcohol? Rarely; What type? Beer Wine Mixed Drinks How many drinks per week? 0 Physical Activity What are you currently doing as activity or exercise? Walking How many times per week? 1-2 How long at each session? 30 min Any limitations you are currently having affecting your activity or exercise? Back pain, foot/ankle swelling, some dyspnea Appetite: Is your appetite well controlled at this time? Getting more under control Energy levels: Are your energy levels fairly good at this time? Yes Quality of Sleep: Are you sleeping well at this time? Most nights How many hours of sleep per night? 5-7 Do you feel rested when you wake up in the morning? Sometimes Do you have sleep apnea and if you do are you currently treated? No Level of Stress: What is the level of stress in your life currently? 6-7 How is your general mood? Anxious at times Medications: If you are currently taking any medication for your weight, are you having any problems with them? Yes, no problems documented in this encounter [facility] 01-06-[facility] History of Present illness Narrative Chief Complaint Patient presents with Obesity Weight Loss NOATAK: Pt who is a Body mass index is 50.07 kg/m . Patient's history of diet, exercise, sleep, stress and appetite control reviewed and confirmed with patient, please see the emergency medical services coordinator's note. HPI: Patient here today for recheck through the [facility]. Patient admits to an increase in cravings and hunger since last visit. Energy levels are reasonable. Sleep is reasonable. Patient having trouble adhering to the diet and exercise protocols consistently. Medications were reviewed today. She states she felt much improvement with appetite control when taking Trulicity but she has not had the medication for the past 2 weeks as she has ran out of samples. Stress levels are reasonably managed. Patient had labs drawn since last appointment which we will review today. For the rest of the review of systems and exam see the EMR. Impression: 1. Atypical eating disorder, 2. Insulin resistance, 3. Morbid obesity, 4. BMI 50.0-59.9, 5. Vitamin D deficiency, 6. Vitamin B6 deficiency, 7. Iron deficiency, 8. Hypothyroidism, 9. Depression Plan: I reviewed lab work with patient. She will continue with vitamin and iron supplementation due to history of deficiency. I will also adjust patient's levothyroxine based off lab work. She will have thyroid labs redrawn in 4 weeks to monitor. I will also start patient on phentermine for round #1 for appetite control. [place]AR[place] reviewed today and patient signed consent form in office. She has had great results with medication in the past. I will decrease her dose of Wellbutrin to help with volume control but to make room for phentermine. She will continue with Trulicity for meal termination as she feels much improvement when taking medication. She has been without Trulicity for the past 2 weeks due to having trouble getting medication. We will start prior authorization process for patient. She will also continue with Zoloft for depression symptoms as this feels well controlled. She will also continue with Topamax for volume control and reward eating. We also discussed working on meeting dietary targets throughout the day, especially protein to carbohydrate ratios, to better help with insulin resistance. I also encouraged Pt to continue working on exercise within orthopedics to help with muscle acquisition. Patient will follow up in 1 month or sooner if needed. This note was partially created using voice recognition software and is inherently subject to errors including those of syntax and sound-alike substitutions which may escape proofreading. In such instances, original meaning may be extrapolated by contextual derivation Medications reviewed with patient. The following portions of the patient's history were reviewed and updated as appropriate: allergies, current medications, past family history, past medical history, past social history, past surgical history and problem list . Review of Systems Constitutional: Positive for appetite change. Negative for fatigue. HENT: Negative. Eyes: Negative. Respiratory: Negative. Negative for shortness of breath. Cardiovascular: Negative. Negative for chest pain. Gastrointestinal: Negative. Negative for abdominal pain, constipation, diarrhea, nausea and vomiting. Endocrine: Negative. Genitourinary: Negative. Musculoskeletal: Negative. Skin: Negative. Allergic/Immunologic: Negative. Neurological: Negative. Hematological: Negative. Psychiatric/Behavioral: Negative. Negative for agitation, behavioral problems, dysphoric mood (stable w/ treatment) and sleep disturbance. The patient is not nervous/anxious. Past Medical History: Diagnosis Date Anxiety Asthma Depression Disease of thyroid gland hypothyroid Hodgkin's lymphoma (HCC) 09/2011 Lymphoma, Hodgkin's (HCC) Preeclampsia previous Social History Socioeconomic History Marital status: Tobacco Use Smoking status: Never Smokeless tobacco: Never Vaping Use Vaping Use: Never used Substance and Sexual Activity Alcohol use: Yes Drug use: Never Sexual activity: Yes Partners: Male Current Outpatient Medications Medication Sig Dispense Refill albuterol 90 mcg/actuation inhaler Inhale 2 (two) puffs every 6 (six) hours as needed for shortness of breath or cough . 18 g 0 budesonide-formoteroL (Symbicort) 80-4.5 mcg/actuation inhaler Inhale 2 (two) puffs 2 (two) times a day . 1 each 2 inhaler, assist devices (OPTICHAMBER ADVANTAGE) Spcr As directed . 1 each 0 sertraline (ZOLOFT) 25 MG tablet Take 1 (one) tablet (25 mg total) by mouth nightly . 30 tablet 1 buPROPion (WELLBUTRIN XL) 150 MG 24 hr tablet Take 1 (one) tablet (150 mg total) by mouth daily . 30 tablet 1 cyanocobalamin, vitamin B-12, 1,[address] 1 (one) tablet (1,000 mcg total) under the tongue daily . 30 tablet 2 dulaglutide (Trulicity) 0.75 mg/0.5 mL Pen Inject 0.5 mL (0.75 mg total) under the skin every 7 days Failed metformin . 2 mL 1 ergocalciferol (ERGOCALCIFEROL) 1,250 mcg (50,000 unit) capsule Take 1 (one) capsule (50,000 Units total) by mouth once a week Take with 500mg vitamin c and fatty meal . 4 capsule 1 ferrous sulfate 325 (65 FE) MG tablet Take 1 (one) tablet (325 mg total) by mouth every other day Take with 500mg of vitamin c . 15 tablet 1 levothyroxine (SYNTHROID, LEVOTHROID) 150 MCG tablet Take 1 (one) tablet (150 mcg total) by mouth every morning . 30 tablet 1 ondansetron (ZOFRAN-ODT) 4 MG disintegrating tablet Dissolve 1 (one) tablet (4 mg total) on top of tongue every 8 (eight) hours as needed for nausea . 20 tablet 0 phentermine (ADIPEX-P) 37.5 mg tablet Take 1 (one) tablet (37.5 mg total) by mouth every morning (Days supply per fill: 30) BMI 50.07 round #1 . 30 tablet 0 pyridoxine, vitamin B6, (vitamin B-6) 25 MG tablet Take 1 (one) tablet (25 mg total) by mouth daily . (Patient not taking: Reported on 01/06/2022 .) 30 tablet 2 topiramate (TOPAMAX) 50 MG tablet Take 1 (one) tablet (50 mg total) by mouth 2 (two) times a day One with lunch and one with dinner . 60 tablet 1 No current facility-administered medications for this visit. BP 122/86 (BP Location: Left arm) Pulse 85 Temp (!) 55.4 F (13 C) Ht 5' 5 (1.651 m) Wt (!) 136.5 kg (300 lb 14.4 oz) SpO2 99% BMI 50.07 kg/m Physical Exam Vitals and nursing note reviewed. Constitutional: General: She is not in acute distress. Appearance: Normal appearance. She is obese. She is not ill-appearing, toxic-appearing or diaphoretic. Cardiovascular: Rate and Rhythm: Normal rate and regular rhythm. Heart sounds: Normal heart sounds. Pulmonary: Effort: Pulmonary effort is normal. No respiratory distress. Breath sounds: Normal breath sounds. Neurological: General: No focal deficit present. Mental Status: She is alert and oriented to person, place, and time. Psychiatric: Mood and Affect: Mood normal. Behavior: Behavior normal. Thought Content: Thought content normal. Judgment: Judgment normal. Problem List Items Addressed This Visit Endocrine Hypothyroidism Relevant Medications levothyroxine (SYNTHROID, LEVOTHROID) 150 MCG tablet Other Relevant Orders TSH T4, Free T3 Other Atypical eating disorder - Primary Relevant Medications buPROPion (WELLBUTRIN XL) 150 MG 24 hr tablet phentermine (ADIPEX-P) 37.5 mg tablet Other Visit Diagnoses Insulin resistance Relevant Medications dulaglutide (Trulicity) 0.75 mg/0.5 mL Pen cyanocobalamin, vitamin B-12, 1,000 mcg Subl Obesity, morbid, BMI 50 or higher (HCC) Relevant Medications phentermine (ADIPEX-P) 37.5 mg tablet BMI 50.0-59.9, adult (HCC) Vitamin D deficiency Relevant Medications ergocalciferol (ERGOCALCIFEROL) 1,250 mcg (50,000 unit) capsule Vitamin B6 deficiency Iron deficiency Relevant Medications ferrous sulfate 325 (65 FE) MG tablet Depression, unspecified depression type Relevant Medications buPROPion (WELLBUTRIN XL) 150 MG 24 hr tablet phentermine (ADIPEX-P) 37.5 mg tablet Continue the currently prescribed calorie load and composition. Return in about 4 weeks (around 02/03/2022) for Follow Up. Counseling Time: minutes more than 50% of the time face to face discussing findings and coordinating care regarding medication management and education for disease processes and treatment protocol. Discussed elevated Body Mass Index (BMI): Advised regular exercise. Discussed elevated Body Mass Index (BMI): Advised healthy and appropriate diet. Discussed elevated Body Mass Index (BMI): Nutrition referral. Discussed elevated Body Mass Index (BMI): Reviewed high BMI, BMI is not an accurate measurement of obesity for this patient. Rationale: Overweight (Findings) BMI Breakfast - coffee Lunch - eggs, salad, chicken salad sandwich, leftovers Dinner - pork chops/chicken/steak/salmon, veggie, salad, macaroni, spaghetti Number of snacks per day: 2 Frequency of skipping meals per day if any: daily due to fasting What do you usually drink? Water, Tea, Pop, Juice, Coffee Do you drink alcohol? What type? Wine, Mixed Drinks How many drinks per week? Social - very rarely Physical Activity What are you currently doing as activity or exercise? Walking How many times per week? 3-4 How long at each session? 30 min Any limitations you are currently having affecting your activity or exercise? Back pain Appetite: Is your appetite well controlled at this time? Somewhat Energy levels: Are your energy levels fairly good at this time? Yes Quality of Sleep: Are you sleeping well at this time? Okay How many hours of sleep per night? 6-7 Do you feel rested when you wake up in the morning? Most days Do you have sleep apnea and if you do are you currently treated? No Level of Stress: What is the level of stress in your life currently?- 8. How is your general mood? Depressed? Anxious? Or OK? Ok Medications: If you are currently taking any medication for your weight, are you having any problems with them? No, just been out for 2 weeks Most recent weight: 300 documented in this [facility] 12-08-2021 Telephone encounter Note JAMES: 11/30: 01/06 Requested Prescriptions Pending Prescriptions Disp Refills buPROPion (WELLBUTRIN XL) 300 MG 24 hr tablet 30 tablet 11 Sig: Take 1 (one) tablet (300 mg total) by mouth daily . ergocalciferol (ERGOCALCIFEROL) 1,250 mcg (50,000 unit) capsule 4 capsule 1 Sig: Take 1 (one) capsule (50,000 Units total) by mouth once a week Take with 500mg vitamin c and fatty meal . cyanocobalamin, vitamin B-12, 1,000 mcg Subl 30 tablet 2 Sig: Place 1 (one) tablet (1,000 mcg total) under the tongue daily . [facility] 12-08-2021 Miscellaneous Notes JAMES: 11/30: 01/06 Requested Prescriptions Pending Prescriptions Disp Refills buPROPion (WELLBUTRIN XL) 300 MG 24 hr tablet 30 tablet 11 Sig: Take 1 (one) tablet (300 mg total) by mouth daily . ergocalciferol (ERGOCALCIFEROL) 1,250 mcg (50,000 unit) capsule 4 capsule 1 Sig: Take 1 (one) capsule (50,000 Units total) by mouth once a week Take with 500mg vitamin c and fatty meal . cyanocobalamin, vitamin B-12, 1,000 mcg Subl 30 tablet 2 Sig: Place 1 (one) tablet (1,000 mcg total) under the tongue daily . documented in this encounter [facility] 11-30-2021 History of Present illness Narrative Diet: What do you usually have to eat for the following meals: Breakfast: fast - just have 1-2 cups coffee Lunch: salad, leftover dinner, sandwich wrap, eggs/sausage or light/hashbrowns Dinner: spaghetti, steak, chicken, pork chops, veggies, salad, meatloaf, breakfast for dinner Number of snacks per day: 1-2 Frequency of skipping meals per day if any: daily due to fasting If you are tracking; how many calories are you getting and how many grams of protein and carbohydrate are getting a day? What do you usually drink? Water, Pop, Juice, Coffee Do you drink alcohol? No Physical Activity What are you currently doing as activity or exercise? Walk when weather is nice How many times per week? Varies How long at each session? 20-30 min Any limitations you are currently having affecting your activity or exercise? Back/knee pain, swelling of LE Appetite: Is your appetite well controlled at this time? Somewhat Energy levels: Are your energy levels fairly good at this time? Yes Quality of Sleep: Are you sleeping well at this time? Most days How many hours of sleep per night? 6-7 Do you feel rested when you wake up in the morning? Sometimes Do you have sleep apnea and if you do are you currently treated? No Level of Stress: What is the level of stress in your life currently? 8 How is your general mood? OK, some anxiety Medications: If you are currently taking any medication for your weight, any problems with them? Yes - GI issues Most recent weight: 306.8 Chief Complaint Patient presents with Obesity Weight Loss Patient Start time: Stop time: Pt who is a Body mass index is 51.05 kg/m . Ht 5' 5 (1.651 m) Wt (!) 139.2 kg (306 lb 12.8 oz) Comment: per pt BMI 51.05 kg/m Patient's history of diet, exercise, sleep, stress and appetite control reviewed and confirmed with patient, please see the emergency medical services coordinator's note. This is a telemedicine encounter. This visit has been fully reviewed with the patient and verbal consent has been obtained. NOATAK: Patient here today for recheck through the [facility]. Patient admits to an increase in hunger/cravings. Energy levels are fair. Sleep is reasonable. Diet and exercise protocols are difficult to maintain due to appetite. Medications were reviewed today. Stress levels are manageable currently. For the rest of the review of systems and exam see the EMR. ASSESSMENT: 1. Atypical eating disorder TSH with Reflex Free T4 CBC and Differential Comprehensive Metabolic Panel 2. Vitamin D deficiency Vitamin D, Total, 25-OH 3. Insulin resistance Vitamin B12 4. Vitamin B6 deficiency Vitamin B6 5. Encounter for pre-bariatric surgery counseling and education 6. Iron deficiency Ferritin Iron and TIBC 7. Obesity, morbid, BMI 50 or higher (HCC) 8. BMI 50.0-59.9, adult (HCC) Plan: Work on macronutrient targets in her diet regular exercise within the limits orthopedics. She is a little frustrated that her intermittent fasting has not been effective. She has not been losing weight. She has a lot of GI upset with the metformin so it does not seem to be as good of fit for her. We will try and see if can get her access to Trulicity since she has failed metformin at this point. Reassess some nutrient abnormalities to make sure there is not other reasons for weight gain. And will reassess in the office for a live visit in 4 weeks sooner if needed. This note was partially created using voice recognition software and is inherently subject to errors including those of syntax and sound-alike substitutions which may escape proofreading. In such instances, original meaning may be extrapolated by contextual derivation Medications reviewed with patient. The following portions of the patient's history were reviewed and updated as appropriate: allergies, current medications, past family history, past medical history, past social history, past surgical history and problem list . Review of Systems Constitutional: Positive for appetite change. Negative for activity change, fatigue and unexpected weight change. Respiratory: Negative for chest tightness, shortness of breath and wheezing. Cardiovascular: Negative for chest pain, palpitations and leg swelling. Gastrointestinal: Negative for constipation and diarrhea. Musculoskeletal: Negative for arthralgias, joint swelling and myalgias. Neurological: Negative for dizziness, light-headedness, numbness and headaches. Psychiatric/Behavioral: Negative for agitation, behavioral problems, decreased concentration, dysphoric mood and sleep disturbance. The patient is not nervous/anxious and is not hyperactive. Physical Exam Vitals and nursing note reviewed. Constitutional: General: She is not in acute distress. Appearance: She is well-developed. Neurological: Mental Status: She is alert and oriented to person, place, and time. Past Medical History: Diagnosis Date Anxiety Asthma Depression Disease of thyroid gland hypothyroid Hodgkin's lymphoma (HCC) 09/2011 Lymphoma, Hodgkin's (HCC) Preeclampsia previous Social History Socioeconomic History Marital status: Tobacco Use Smoking status: Never Smoker Smokeless tobacco: Never Used Vaping Use Vaping Use: Never used Substance and Sexual Activity Alcohol use: Yes Drug use: Never Sexual activity: Yes Partners: Male Current Outpatient Medications Medication Sig Dispense Refill albuterol 90 mcg/actuation inhaler Inhale 2 (two) puffs every 6 (six) hours as needed for shortness of breath or cough . 18 g 0 budesonide-formoteroL (Symbicort) 80-4.5 mcg/actuation inhaler Inhale 2 (two) puffs 2 (two) times a day . 1 each 2 buPROPion (WELLBUTRIN XL) 300 MG 24 hr tablet Take 1 (one) tablet (300 mg total) by mouth daily . 30 tablet 11 busPIRone (BUSPAR) 5 MG tablet Take 1 (one) tablet (5 mg total) by mouth 3 (three) times a day . 90 tablet 1 cyanocobalamin, vitamin B-12, 1,[address] 1 (one) tablet (1,000 mcg total) under the tongue daily . 30 tablet 2 docusate sodium (COLACE) 100 MG capsule Take 1 (one) capsule (100 mg total) by mouth 2 (two) times a day . 60 capsule 11 dulaglutide (Trulicity) 0.75 mg/0.5 mL Pen Inject 0.5 mL (0.75 mg total) under the skin every 7 days Failed metformin . 2 mL 0 ergocalciferol (ERGOCALCIFEROL) 1,250 mcg (50,000 unit) capsule Take 1 (one) capsule (50,000 Units total) by mouth once a week Take with 500mg vitamin c and fatty meal . 4 capsule 1 ferrous sulfate 325 (65 FE) MG tablet Take 1 (one) tablet (325 mg total) by mouth every other day Take with 500mg of vitamin c . 15 tablet 1 hydrocortisone (ANUSOL-HC) 2.5 % rectal cream Insert into the rectum 2 (two) times a day . 30 g 0 inhaler, assist devices (OPTICHAMBER ADVANTAGE) Spcr As directed . 1 each 0 levothyroxine (SYNTHROID, LEVOTHROID) 175 MCG tablet Take 1 (one) tablet (175 mcg total) by mouth every morning . 30 tablet 3 miscellaneous medical supply [facility] Weight Scale dx obesity class III . 1 each 0 ondansetron (ZOFRAN-ODT) 4 MG disintegrating tablet Dissolve 1 (one) tablet (4 mg total) on top of tongue every 8 (eight) hours as needed for nausea . 20 tablet 0 predniSONE (DELTASONE) 10 MG tablet 4 tablets daily x 3 days, 3 tablets daily x 3 days, 2 tablets daily x 3 days, 1 tablet daily x 3 days . (Patient not taking: Reported on 08/28/2021 .) 30 tablet 0 pyridoxine, vitamin B6, (vitamin B-6) 25 MG tablet Take 1 (one) tablet (25 mg total) by mouth daily . 30 tablet 2 sertraline (ZOLOFT) 25 MG tablet Take 1 (one) tablet (25 mg total) by mouth nightly . 30 tablet 1 SUMAtriptan (IMITREX) 50 MG tablet Take 1 (one) tablet (50 mg total) by mouth every 2 (two) hours as needed for migraine Max of 200 mg in 24hrs . 10 tablet 1 topiramate (TOPAMAX) 50 MG tablet Take 1 (one) tablet (50 mg total) by mouth 2 (two) times a day One with lunch and one with dinner . 60 tablet 1 No current facility-administered medications for this visit. Problem List Items Addressed This Visit Other Atypical eating disorder - Primary Relevant Orders TSH with Reflex Free T4 CBC and Differential Comprehensive Metabolic Panel Other Visit Diagnoses Vitamin D deficiency Relevant Orders Vitamin D, Total, 25-OH Insulin resistance Relevant Orders Vitamin B12 Vitamin B6 deficiency Relevant Orders Vitamin B6 Encounter for pre-bariatric surgery counseling and education Iron deficiency Relevant Orders Ferritin Iron and TIBC Obesity, morbid, BMI 50 or higher (HCC) BMI 50.0-59.9, adult (HCC) Continue the currently prescribed calorie load and composition. Return in about 4 weeks (around 12/28/2021) for Recheck. Counseling Time: minutes more than 50% of the time face to face discussing findings and coordinating care regarding medication management and education for disease processes and treatment protocol. Provider Location: [facility]NOTE 3] WEIGHT TREATMENT [address] [id number] Patient Location: [address] [place] [address] A, [address] [facility] [address] [facility] WEIGHT TREATMENT [address] [id number] Virtual Visit [facility] 11/30/21 Lamberto Russo MD Provider Location: Patient Location Pulp Maker: None Patient Location: home Patient: Aurora Mendez Date of : 1985 (36 y.o. female) PCP: Evi Pacheco MD I instructed patient to contact me promptly with additional concerns. Virtual Visit Consent Statement: I discussed risks, benefits and alternatives of telemedicine consultation with the patient (and any accompanying persons) including the risks that the patient s personal health details and medical records will be discussed over interactive video/audio/telecommunication technology, may be recorded, and that there are inherent diagnostic limitations compared to [id number] evaluations. They elected to proceed with the telemedicine consultation. documented in this encounter [facility] 10-23-2021 History of Present illness Narrative Chief Complaint Patient presents with Weight Loss Obesity Patient Start time: Stop time: Pt who is a Body mass index is 50.06 kg/m . Ht 5' 5 (1.651 m) Wt (!) 136.4 kg (300 lb 12.8 oz) Comment: pt. reported BMI 50.06 kg/m Patient's history of diet, exercise, sleep, stress and appetite control reviewed and confirmed with patient, please see the emergency medical services coordinator's note. This is a telemedicine encounter. This visit has been fully reviewed with the patient and verbal consent has been obtained. NOATAK: Patient here today for recheck through the [facility] [place]. Patient admits to an increase in hunger/cravings. Energy levels are fair. Sleep is reasonable. Diet and exercise protocols are difficult to maintain due to appetite. Medications were reviewed today. Stress levels are manageable currently. For the rest of the review of systems and exam see the EMR. States she recently moved and so she was off target with her dietary construct for a while that has subsequently gotten better she is getting back to her intermittent fasting approach she is doing fairly well with that construct at this point. She had some headaches with the Topamax at the higher dose so she stopped taking it she is seeing some more hunger issues. She is also having a lot of GI upset with Metformin but she has been tolerating it to date. 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 Insulin resistance metFORMIN (GLUCOPHAGE-XR) 500 MG 24 hr tablet Vitamin B12 3. Vitamin D deficiency Vitamin D, Total, 25-OH 4. Vitamin B6 deficiency Vitamin B6 5. Encounter for pre-bariatric surgery counseling and education 6. Obesity, morbid, BMI 50 or higher (HCC) 7. BMI 50.0-59.9, adult (HCC) 8. Iron deficiency Ferritin Iron and TIBC CBC 9. Hypothyroidism (acquired) TSH with Reflex Free T4 Plan: Work on macronutrient targets in her diet within her intermittent fasting window. We will restart the Topamax at the 50 mg dose 1 with lunch 1 with dinner during her feeding window. Reassess her nutrient markers and other barriers to weight loss from a metabolic perspective. Back down the dose of her Metformin to help with GI side effects. And will reassess here in the office in 4 weeks see how she is doing sooner if she is worse This note was partially created using voice recognition software and is inherently subject to errors including those of syntax and sound-alike substitutions which may escape proofreading. In such instances, original meaning may be extrapolated by contextual derivation Medications reviewed with patient. The following portions of the patient's history were reviewed and updated as appropriate: allergies, current medications, past family history, past medical history, past social history, past surgical history and problem list . Review of Systems Constitutional: Positive for appetite change. Negative for activity change, fatigue and unexpected weight change. Respiratory: Negative for chest tightness, shortness of breath and wheezing. Cardiovascular: Negative for chest pain, palpitations and leg swelling. Gastrointestinal: Negative for constipation and diarrhea. Musculoskeletal: Negative for arthralgias, joint swelling and myalgias. Neurological: Negative for dizziness, light-headedness, numbness and headaches. Psychiatric/Behavioral: Positive for sleep disturbance. Negative for agitation, behavioral problems, decreased concentration and dysphoric mood. The patient is not nervous/anxious and is not hyperactive. Physical Exam Vitals and nursing note reviewed. Constitutional: General: She is not in acute distress. Appearance: She is well-developed. Neurological: Mental Status: She is alert and oriented to person, place, and time. Past Medical History: Diagnosis Date Anxiety Asthma Depression Disease of thyroid gland hypothyroid Hodgkin's lymphoma (HCC) 09/2011 Lymphoma, Hodgkin's (HCC) Preeclampsia previous Social History Socioeconomic History Marital status: Tobacco Use Smoking status: Never Smoker Smokeless tobacco: Never Used Vaping Use Vaping Use: Never used Substance and Sexual Activity Alcohol use: Yes Drug use: Never Sexual activity: Yes Partners: Male Current Outpatient Medications Medication Sig Dispense Refill albuterol 90 mcg/actuation inhaler Inhale 2 (two) puffs every 6 (six) hours as needed for shortness of breath or cough . 18 g 0 budesonide-formoteroL (Symbicort) 80-4.5 mcg/actuation inhaler Inhale 2 (two) puffs 2 (two) times a day . 1 each 2 buPROPion (WELLBUTRIN XL) 300 MG 24 hr tablet Take 1 (one) tablet (300 mg total) by mouth daily . 30 tablet 11 busPIRone (BUSPAR) 5 MG tablet Take 1 (one) tablet (5 mg total) by mouth 3 (three) times a day . 90 tablet 1 cyanocobalamin, vitamin B-12, 1,[address] 1 (one) tablet (1,000 mcg total) under the tongue daily . 30 tablet 2 docusate sodium (COLACE) 100 MG capsule Take 1 (one) capsule (100 mg total) by mouth 2 (two) times a day . 60 capsule 11 ergocalciferol (ERGOCALCIFEROL) 1,250 mcg (50,000 unit) capsule Take 1 (one) capsule (50,000 Units total) by mouth once a week Take with 500mg vitamin c and fatty meal . 4 capsule 1 ferrous sulfate 325 (65 FE) MG tablet Take 1 (one) tablet (325 mg total) by mouth every other day Take with 500mg of vitamin c . 15 tablet 1 hydrocortisone (ANUSOL-HC) 2.5 % rectal cream Insert into the rectum 2 (two) times a day . 30 g 0 inhaler, assist devices (OPTICHAMBER ADVANTAGE) Spcr As directed . 1 each 0 levothyroxine (SYNTHROID, LEVOTHROID) 175 MCG tablet Take 1 (one) tablet (175 mcg total) by mouth every morning . 30 tablet 3 metFORMIN (GLUCOPHAGE-XR) 500 MG 24 hr tablet Take 1 (one) tablet (500 mg total) by mouth daily with lunch During lunch . 30 tablet 1 miscellaneous medical supply [facility] Weight Scale dx obesity class III . 1 each 0 predniSONE (DELTASONE) 10 MG tablet 4 tablets daily x 3 days, 3 tablets daily x 3 days, 2 tablets daily x 3 days, 1 tablet daily x 3 days . (Patient not taking: Reported on 08/28/2021 .) 30 tablet 0 pyridoxine, vitamin B6, (vitamin B-6) 25 MG tablet Take 1 (one) tablet (25 mg total) by mouth daily . 30 tablet 2 sertraline (ZOLOFT) 25 MG tablet Take 1 (one) tablet (25 mg total) by mouth nightly . 30 tablet 1 SUMAtriptan (IMITREX) 50 MG tablet Take 1 (one) tablet (50 mg total) by mouth every 2 (two) hours as needed for migraine Max of 200 mg in 24hrs . 10 tablet 1 topiramate (TOPAMAX) 50 MG tablet Take 1 (one) tablet (50 mg total) by mouth 2 (two) times a day One with lunch and one with dinner . 60 tablet 1 No current facility-administered medications for this visit. Problem List Items Addressed This Visit Other Atypical eating disorder - Primary Relevant Orders Comprehensive Metabolic Panel Other Visit Diagnoses Insulin resistance Relevant Medications metFORMIN (GLUCOPHAGE-XR) 500 MG 24 hr tablet Other Relevant Orders Vitamin B12 Vitamin D deficiency Relevant Orders Vitamin D, Total, 25-OH Vitamin B6 deficiency Relevant Orders Vitamin B6 Encounter for pre-bariatric surgery counseling and education Obesity, morbid, BMI 50 or higher (HCC) BMI 50.0-59.9, adult (HCC) Iron deficiency Relevant Orders Ferritin Iron and TIBC CBC Hypothyroidism (acquired) Relevant Orders TSH with Reflex Free T4 Continue the currently prescribed calorie load and composition. Return in about 4 weeks (around 11/20/2021) for Recheck. Counseling Time: minutes more than 50% of the time face to face discussing findings and coordinating care regarding medication management and education for disease processes and treatment protocol. Provider Location: [facility]NOTE 3] WEIGHT TREATMENT [address] [facility] [id number] Patient Location: [address] [place] [id number] [facility] WEIGHT TREATMENT [address] [facility] [id number] Virtual Visit [facility] 10/23/21 Lamberto Russo MD Provider Location: Patient Location Pulp Maker: None Patient Location: home Patient: Aurora Mendez Date of : 1985 (36 y.o. female) PCP: Evi Pacheco MD I instructed patient to contact me promptly with additional concerns. Virtual Visit Consent Statement: I discussed risks, benefits and alternatives of telemedicine consultation with the patient (and any accompanying persons) including the risks that the patient s personal health details and medical records will be discussed over interactive video/audio/telecommunication technology, may be recorded, and that there are inherent diagnostic limitations compared to [id number] evaluations. They elected to proceed with the telemedicine consultation. What do you usually have to eat for the following meals: Breakfast 2 cups of coffee/fasting period Lunch turkey/roast beef sandwich, veggies&dip, leftovers Dinner chicken/steak/pork chops/burgers, veggie Number of snacks per day: 1-2 Frequency of skipping meals per day if any: daily If you are tracking; how many calories are you getting and how many grams of protein and carbohydrate are getting a day? What do you usually drink? Water, Tea, Pop, Juice, Coffee Do you drink alcohol? What type? Mixed Drinks How many drinks per week? Less than 1, maybe 2 drinks monthly Physical Activity What are you currently doing as activity or exercise? Cleaning around the house, walking the store How many times per week? Clean daily, walking store 1x week How long at each session? 30+ minutes Any limitations you are currently having affecting your activity or exercise? Shortness of breath, back pain Appetite: Is your appetite well controlled at this time? Somewhat Energy levels: Are your energy levels fairly good at this time? Yes Quality of Sleep: Are you sleeping well at this time? Sometimes How many hours of sleep per night? 6 to 8 Do you feel rested when you wake up in the morning? Sometimes Do you have sleep apnea and if you do are you currently treated? No Level of Stress: What is the level of stress in your life currently? 6 How is your general mood? Some anxiety and depression, but otherwise OK. Medications: Metformin - GI issues Most recent weight: 300.8 documented in this encounter [facility] 09-09-2021 Instructions Lamberto Russo MD - 09/09/2021 1:59 PM EST Feeding phase of the day 1230 pm til 630pm targeting 6hr feeding window Fasting rest of the time can have water unsweetened tea or coffee target target 135 oz of water daily - 90 oz of which during the fasting phase Can use bone broths during the fasting phase if desired Complete guide to intermittent fasting by Tim Haynes MD would be good reference if needed documented in this encounter [facility] 09-09-2021 History of Present illness Narrative Chief Complaint Patient presents with Obesity Weight Loss Patient Start time: Stop time: Pt who is a Body mass index is 50.12 kg/m . Ht 5' 5 (1.651 m) Wt (!) 136.6 kg (301 lb 3.2 oz) Comment: per pt LMP 08/23/2021 BMI 50.12 kg/m Patient's history of diet, exercise, sleep, stress and appetite control reviewed and confirmed with patient, please see the emergency medical services coordinator's note. This is a telemedicine encounter. This visit has been fully reviewed with the patient and verbal consent has been obtained. NOATAK: Patient here today for recheck through the [employer] [place]. Patient admits to an increase in hunger/cravings. Energy levels are fair. Sleep is reasonable. Diet and exercise protocols are difficult to maintain due to appetite. Medications were reviewed today. Stress levels are manageable currently. For the rest of the review of systems and exam see the EMR. Struggling with reward eating behavior. ASSESSMENT: 1. Atypical eating disorder 2. Insulin resistance metFORMIN (GLUCOPHAGE-XR) 750 MG 24 hr tablet 3. Vitamin D deficiency 4. Vitamin B6 deficiency 5. Obesity, morbid, BMI 50 or higher (HCC) 6. BMI 50.0-59.9, adult (HCC) 7. Encounter for pre-bariatric surgery counseling and education Plan: Work on macronutrient targets in her diet regular exercise within limits orthopedics. Moved a higher dose of Topamax discontinue the Trulicity as it was not manageable. Continue nutrient replacements. We did discuss operative management as an opportunity as well. Recheck 4 weeks This note was partially created using voice recognition software and is inherently subject to errors including those of syntax and sound-alike substitutions which may escape proofreading. In such instances, original meaning may be extrapolated by contextual derivation Medications reviewed with patient. The following portions of the patient's history were reviewed and updated as appropriate: allergies, current medications, past family history, past medical history, past social history, past surgical history and problem list . Review of Systems Constitutional: Positive for appetite change and fatigue. Negative for activity change and unexpected weight change. Respiratory: Negative for chest tightness, shortness of breath and wheezing. Cardiovascular: Negative for chest pain, palpitations and leg swelling. Gastrointestinal: Negative for constipation and diarrhea. Musculoskeletal: Negative for arthralgias, joint swelling and myalgias. Neurological: Negative for dizziness, light-headedness, numbness and headaches. Psychiatric/Behavioral: Positive for sleep disturbance. Negative for agitation, behavioral problems, decreased concentration and dysphoric mood. The patient is not nervous/anxious and is not hyperactive. Physical Exam Vitals and nursing note reviewed. Constitutional: General: She is not in acute distress. Appearance: She is well-developed and well-nourished. Neurological: Mental Status: She is alert and oriented to person, place, and time. Past Medical History: Diagnosis Date Anxiety Asthma Depression Disease of thyroid gland hypothyroid Hodgkin's lymphoma ([facility]) 09/2011 Lymphoma, Hodgkin's (HCC) Preeclampsia previous Social History Socioeconomic History Marital status: Tobacco Use Smoking status: Never Smoker Smokeless tobacco: Never Used Vaping Use Vaping Use: Never used Substance and Sexual Activity Alcohol use: Yes Drug use: Never Sexual activity: Yes Partners: Male Current Outpatient Medications Medication Sig Dispense Refill albuterol 90 mcg/actuation inhaler Inhale 2 (two) puffs every 6 (six) hours as needed for shortness of breath or cough . 18 g 0 budesonide-formoteroL (Symbicort) 80-4.5 mcg/actuation inhaler Inhale 2 (two) puffs 2 (two) times a day . 1 each 2 buPROPion (WELLBUTRIN XL) 300 MG 24 hr tablet Take 1 (one) tablet (300 mg total) by mouth daily . 30 tablet 11 busPIRone (BUSPAR) 5 MG tablet Take 1 (one) tablet (5 mg total) by mouth 3 (three) times a day . 90 tablet 1 cyanocobalamin, vitamin B-12, 1,[address] 1 (one) tablet (1,000 mcg total) under the tongue daily . 30 tablet 2 docusate sodium (COLACE) 100 MG capsule Take 1 (one) capsule (100 mg total) by mouth 2 (two) times a day . 60 capsule 11 ergocalciferol (ERGOCALCIFEROL) 1,250 mcg (50,000 unit) capsule Take 1 (one) capsule (50,000 Units total) by mouth once a week Take with 500mg vitamin c and fatty meal . 4 capsule 1 ferrous sulfate 325 (65 FE) MG tablet Take 1 (one) tablet (325 mg total) by mouth every other day Take with 500mg of vitamin c . 15 tablet 1 hydrocortisone (ANUSOL-HC) 2.5 % rectal cream Insert into the rectum 2 (two) times a day . 30 g 0 inhaler, assist devices (OPTICHAMBER ADVANTAGE) Spcr As directed . 1 each 0 levothyroxine (SYNTHROID, LEVOTHROID) 175 MCG tablet Take 1 (one) tablet (175 mcg total) by mouth every morning . 30 tablet 3 metFORMIN (GLUCOPHAGE-XR) 750 MG 24 hr tablet Take 1 (one) tablet (750 mg total) by mouth daily with lunch During lunch . 30 tablet 1 miscellaneous medical supply [facility] Weight Scale dx obesity class III . 1 each 0 predniSONE (DELTASONE) 10 MG tablet 4 tablets daily x 3 days, 3 tablets daily x 3 days, 2 tablets daily x 3 days, 1 tablet daily x 3 days . (Patient not taking: Reported on 08/28/2021 .) 30 tablet 0 pyridoxine, vitamin B6, (vitamin B-6) 25 MG tablet Take 1 (one) tablet (25 mg total) by mouth daily . 30 tablet 2 sertraline (ZOLOFT) 25 MG tablet Take 1 (one) tablet (25 mg total) by mouth nightly . 30 tablet 1 SUMAtriptan (IMITREX) 50 MG tablet Take 1 (one) tablet (50 mg total) by mouth every 2 (two) hours as needed for migraine Max of 200 mg in 24hrs . 10 tablet 1 topiramate (TOPAMAX) 50 MG tablet Take 3 (three) tablets (150 mg total) by mouth 2 (two) times a day . 180 tablet 1 No current facility-administered medications for this visit. Problem List Items Addressed This Visit Other Atypical eating disorder - Primary Other Visit Diagnoses Insulin resistance Relevant Medications metFORMIN (GLUCOPHAGE-XR) 750 MG 24 hr tablet Vitamin D deficiency Vitamin B6 deficiency Obesity, morbid, BMI 50 or higher ([facility]) BMI 50.0-59.9, adult ([facility]) Encounter for pre-bariatric surgery counseling and education Continue the currently prescribed calorie load and composition. Return in about 4 weeks (around 10/07/2021) for Recheck. Counseling Time: minutes more than 50% of the time face to face discussing findings and coordinating care regarding medication management and education for disease processes and treatment protocol. Provider Location: [facility][NOTE 3] WEIGHT TREATMENT [address] [facility] [id number] Patient Location: [address] [place], [place] [id number] [facility]NOTE 3] WEIGHT TREATMENT [address] [facility] [id number] Virtual Visit [facility] 09/11/21 Lamberto Russo MD Provider Location: Patient Location Pulp Maker: None Patient Location: home Patient: Aurora Mendez Date of : 1985 (36 y.o. female) PCP: Evi Pacheco MD I instructed patient to contact me promptly with additional concerns. Virtual Visit Consent Statement: I discussed risks, benefits and alternatives of telemedicine consultation with the patient (and any accompanying persons) including the risks that the patient s personal health details and medical records will be discussed over interactive video/audio/telecommunication technology, may be recorded, and that there are inherent diagnostic limitations compared to [id number] evaluations. They elected to proceed with the telemedicine consultation. Diet: What do you usually have to eat: Breakfast: coffee w/creamer, eggs, light/sausage, or a breakfast sandwich on bagel, or skip and just have coffee Lunch: dinner leftovers from previous night, salad, pizza, sandwich, ramen Dinner: chicken/pork chops/burgers/steak/shrimp/fish, veggie and/or salad, hamburger helper Number of snacks per day: 2-3 Frequency of skipping meals per day: 1 If you are tracking; how many calories are you getting? 2,000 What do you usually drink? Water, Tea, Pop, Juice, Coffee Do you drink alcohol? Very rarely - white claws/tequila/vodka How many drinks per week? 0 Physical Activity What are you currently doing as activity or exercise? Up and down stairs, house work How many times per week? Daily How long at each session? Varies Any limitations you are currently having affecting your activity or exercise? Severe back pain, dyspnea Appetite: Is your appetite well controlled at this time? No Energy levels: Are your energy levels fairly good at this time? Yes and no Quality of Sleep: Are you sleeping well at this time? No, have been experiencing restlessness How many hours of sleep per night? 4/5 to 6 Do you feel rested when you wake up in the morning? Sometimes Do you have sleep apnea? No What is the level of stress in your life currently? 10 How is your general mood? Depressed & Anxious Medications: If you are currently taking any medication for your weight, are you having any problems with them? Yes Most recent weight: 301.2 documented in this [facility] 08-28-2021 Miscellaneous Notes Associated Problem(s): Rectal bleeding This may have been in the setting of the internal hemorrhoids. With her concern and significant family history of colon cancer I did recommend her for diagnostic colonoscopy. Associated Problem(s): Internal hemorrhoids This is a chronic problem, it is noted on exam today but nonbleeding. No irritation noted. We discussed symptoms to treat hemorrhoids when they flareup. We will provide her with cream today. Discussed utilizing wipes versus toilet paper when it happens. Discussed sitz bath. Discussed avoiding constipation. Colace prescribed today. Increase water intake and fiber. She is on several medications that can cause constipation so I do recommend that she takes the Colace daily. documented in this encounter [facility] 08-28-2021 History of Present illness Narrative Aurora Mendez is a 36 y.o. female Assessment/Plan: Problem List Items Addressed This Visit Digestive Rectal bleeding This may have been in the setting of the internal hemorrhoids. With her concern and significant family history of colon cancer I did recommend her for diagnostic colonoscopy. Relevant Orders Ambulatory referral to General Surgery Internal hemorrhoids - Primary This is a chronic problem, it is noted on exam today but nonbleeding. No irritation noted. We discussed symptoms to treat hemorrhoids when they flareup. We will provide her with cream today. Discussed utilizing wipes versus toilet paper when it happens. Discussed sitz bath. Discussed avoiding constipation. Colace prescribed today. Increase water intake and fiber. She is on several medications that can cause constipation so I do recommend that she takes the Colace daily. Relevant Medications hydrocortisone (ANUSOL-HC) 2.5 % rectal cream docusate sodium (COLACE) 100 MG capsule Return for Next scheduled follow up. __ Aurora Mendez is a 36 y.o. female who presents for Chief Complaint Patient presents with Rectal Bleeding HPI Is a 36-year-old female with a significant history for hypothyroidism, anxiety and depression who presents today with concern for rectal bleeding. States that she has been having some bright red blood on toilet paper for couple weeks now however it has become darker and now she is noticing it in the toilet bowl. This is never happened to her before. She has had a history of hemorrhoids and has had some bleeding in the past when she is constipated. Notes that she has been constipated off and on for the past few weeks. Currently has not had a bowel movement in 2 to 3 days. When she does go it is painful to go. She does not think she empties all the way. Her bowels do alternate from constipation to diarrhea at times. She is on metformin, naltrexone and iron. She notes that dairy also causes her to have diarrhea. She is under a lot of stress and wonders if her mood can affect this as well. She has not tried any qvnv-vma-qkvkchl medications for her constipation. She is also concerned because she has a family history of colon cancer. Her mom has a colonoscopy every 3 years due to polyps. Her mother was father and uncle had colon cancer. Her dad mother and sister had colon cancer. She cannot recall what age they were diagnosed. Patient Active Problem List Diagnosis Hodgkin's disease (HCC) Obesity, Class II, BMI 35-39.9 Hypothyroidism Leg swelling Anxiety and depression Migraine Atypical eating disorder Sleep disturbance Cough Rectal bleeding Internal hemorrhoids Past Surgical History: Procedure Laterality Date SECTION, LOW TRANSVERSE Two prior CHEMOTHERAPY Hodgkins Lymphoma CHOLECYSTECTOMY RADIATION chest for Hodgkins Lyphoma TONSILLECTOMY AND ADENOIDECTOMY Family History Problem Relation Age of Onset Depression Mother Hypothyroidism Mother Diabetes Father Depression Father Chiari malformation Father Alcohol abuse Maternal Grandfather Colon cancer Maternal Grandfather Diabetes Paternal Grandmother Colon cancer Paternal Grandmother Social History Tobacco Use Smoking status: Never Smoker Smokeless tobacco: Never Used Vaping Use Vaping Use: Never used Substance Use Topics Alcohol use: Yes Drug use: Never Current Outpatient Medications Medication Sig Dispense Refill albuterol 90 mcg/actuation inhaler Inhale 2 (two) puffs every 6 (six) hours as needed for shortness of breath or cough . 18 g 0 budesonide-formoteroL (Symbicort) 80-4.5 mcg/actuation inhaler Inhale 2 (two) puffs 2 (two) times a day . 1 each 2 buPROPion (WELLBUTRIN XL) 300 MG 24 hr tablet Take 1 (one) tablet (300 mg total) by mouth daily . 30 tablet 11 busPIRone (BUSPAR) 5 MG tablet Take 1 (one) tablet (5 mg total) by mouth 3 (three) times a day . 90 tablet 1 cyanocobalamin, vitamin B-12, 1,[address] 1 (one) tablet (1,000 mcg total) under the tongue daily . 30 tablet 2 ergocalciferol (ERGOCALCIFEROL) 1,250 mcg (50,000 unit) capsule Take 1 (one) capsule (50,000 Units total) by mouth once a week Take with 500mg vitamin c and fatty meal . 4 capsule 1 ferrous sulfate 325 (65 FE) MG tablet Take 1 (one) tablet (325 mg total) by mouth every other day Take with 500mg of vitamin c . 15 tablet 1 inhaler, assist devices (OPTICHAMBER ADVANTAGE) Spcr As directed . 1 each 0 levothyroxine (SYNTHROID, LEVOTHROID) 175 MCG tablet Take 1 (one) tablet (175 mcg total) by mouth every morning . 30 tablet 3 metFORMIN (GLUCOPHAGE-XR) 500 MG 24 hr tablet Take 1 (one) tablet (500 mg total) by mouth daily with breakfast During breakfast . 30 tablet 1 miscellaneous medical supply [facility] Weight Scale dx obesity class III . 1 each 0 naltrexone (DEPADE, REVIA) 50 mg tablet 1/4 tab po every day with breakfast for 2 weeks then 1/4 tab po with breakfast and 1/4 tab with lunch . 15 tablet 1 pyridoxine, vitamin B6, (vitamin B-6) 25 MG tablet Take 1 (one) tablet (25 mg total) by mouth daily . 30 tablet 2 sertraline (ZOLOFT) 25 MG tablet Take 1 (one) tablet (25 mg total) by mouth nightly . 30 tablet 1 SUMAtriptan (IMITREX) 50 MG tablet Take 1 (one) tablet (50 mg total) by mouth every 2 (two) hours as needed for migraine Max of 200 mg in 24hrs . 10 tablet 1 topiramate (TOPAMAX) 100 MG tablet Take 1 (one) tablet (100 mg total) by mouth 2 (two) times a day . 60 tablet 1 docusate sodium (COLACE) 100 MG capsule Take 1 (one) capsule (100 mg total) by mouth 2 (two) times a day . 60 capsule 11 dulaglutide (Trulicity) 0.75 mg/0.5 mL Pen Inject 0.5 mL (0.75 mg total) under the skin every 7 days On hold for metformin trial . (Patient not taking: Reported on 08/28/2021 .) 2 mL 0 hydrocortisone (ANUSOL-HC) 2.5 % rectal cream Insert into the rectum 2 (two) times a day . 30 g 0 predniSONE (DELTASONE) 10 MG tablet 4 tablets daily x 3 days, 3 tablets daily x 3 days, 2 tablets daily x 3 days, 1 tablet daily x 3 days . (Patient not taking: Reported on 08/28/2021 .) 30 tablet 0 No current facility-administered medications for this visit. Review of Systems Constitutional: Negative for appetite change, fatigue and unexpected weight change. Gastrointestinal: Positive for blood in stool and constipation. Negative for abdominal pain, nausea and rectal pain. Musculoskeletal: Positive for back pain. Skin: Negative for rash and wound. Neurological: Negative for headaches. Physical Exam: BP 123/84 (BP Location: Left arm, Patient Position: Sitting, BP Cuff Size: Adult) Pulse 82 Temp 97.8 F (36.6 C) (Temporal) Resp 16 Ht 5' 5 Wt (!) 136.2 kg (300 lb 4.8 oz) LMP 08/23/2021 SpO2 98% BMI 49.97 kg/m Wt Readings from Last 3 Encounters: 08/28/21 (!) 136.2 kg (300 lb 4.8 oz) 07/31/21 133.7 kg (294 lb 12.8 oz) 07/03/21 133.8 kg (295 lb) BP Readings from Last 3 Encounters: 08/28/21 123/84 04/14/21 112/77 03/24/21 125/84 Physical Exam Vitals reviewed. Exam conducted with a trustee of estate present. Constitutional: General: She is not in acute distress. Appearance: She is not ill-appearing. HENT: Head: Normocephalic. Eyes: Conjunctiva/sclera: Conjunctivae normal. Cardiovascular: Rate and Rhythm: Normal rate. Pulmonary: Effort: Pulmonary effort is normal. No respiratory distress. Genitourinary: Rectum: Internal hemorrhoid present. No mass, tenderness, anal fissure or external hemorrhoid. Normal anal tone. Skin: Findings: No rash. Neurological: Mental Status: She is alert and oriented to person, place, and time. Psychiatric: Mood and Affect: Mood normal. Behavior: Behavior normal. Thought Content: Thought content normal. Please note: Portions of this chart may have been created with [employer] voice recognition software. Occasional wrong-word or sound-like substitutions may have occurred due to inherent limitations of the voice recognition software. Please read the chart carefully and recognize, using context, where the substitutions have occurred. For any new medications prescribed today, patient was educated about indications for the medication, how to take the medication and potential side effects of the medications. Examination chaperoned by Aurora Roblero. documented in this encounter [facility] 08-28-2021 Instructions Evi Pacheco MD - 08/28/2021 9:47 AM EST Images from the original note were not included. Hemorrhoids: Care Instructions Overview Hemorrhoids are swollen veins that develop in the anal canal. Bleeding during bowel movements, itching, and rectal pain are the most common symptoms. Hemorrhoids can be uncomfortable at times, but rarely are they a serious problem. Most of the time, you can treat them with simple changes to your diet and bowel habits. These changes include eating more fiber and not straining to pass stools. Most hemorrhoids don't need surgery or other treatment unless they are very large and painful or bleed a lot. Follow-up care is a lam part of your treatment and safety. Be sure to make and go to all appointments, and call your doctor if you are having problems. It's also a good idea to know your test results and keep a list of the medicines you take. How can you care for yourself at home? Sit in a few inches of warm water (sitz bath) 3 times a day and after bowel movements. The warm water helps with pain and itching. Put ice on your anal area several times a day for 10 minutes at a time. Put a thin cloth between the ice and your skin. Follow this by placing a warm, wet towel on the area for another 10 to 20 minutes. Take pain medicines exactly as directed. ? If the doctor gave you a prescription medicine for pain, take it as prescribed. ? If you are not taking a prescription pain medicine, ask your doctor if you can take an hyaw-eir-vcvzjef medicine. Keep the anal area clean, but be gentle. Use water and a fragrance-free soap, or use baby wipes or medicated pads such as Tucks. Wear cotton underwear and loose clothing to decrease moisture in the anal area. Eat more fiber. Include foods such as whole-grain breads and cereals, raw vegetables, raw and dried fruits, and beans. Drink plenty of fluids. If you have kidney, heart, or liver disease and have to limit fluids, talk with your doctor before you increase the amount of fluids you drink. Use a stool softener that contains bran or psyllium. You can save money by buying bran or psyllium (available in bulk at most [employer] stores) and sprinkling it on foods or stirring it into fruit juice. Or you can use a product such as Metamucil or Hydrocil. Practice healthy bowel habits. ? Go to the bathroom as soon as you have the urge. ? Avoid straining to pass stools. Relax and give yourself time to let things happen naturally. ? Do not hold your breath while passing stools. ? Do not read while sitting on the toilet. Get off the toilet as soon as you have finished. Take your medicines exactly as prescribed. Call your doctor if you think you are having a problem with your medicine. When should you call for help? Call 911 anytime you think you may need emergency care. For example, call if: You pass maroon or very bloody stools. Call your doctor now or seek immediate medical care if: You have increased pain. You have increased bleeding. Watch closely for changes in your health, and be sure to contact your doctor if: Your symptoms have not improved after 3 or 4 days. Where can you learn more? Log into your personal health record on [email or web address] and enter F228 in the Education box to learn more about Hemorrhoids: Care Instructions. Current as of: April 22, 2021 Content Version: 13.1 [employer]. Care instructions adapted under license by your healthcare professional. If you have questions about a medical condition or this instruction, always ask your healthcare professional. [employer] disclaims any warranty or liability for your use of this information. documented in this encounter [facility] 07-31-[facility]21 History of Present illness Narrative Diet: What do you usually have to eat for the following meals: Breakfast eggs w/light or sausage; cereal; bagel Lunch lunchmeat w/cheese on wrap, leftovers, salad, occasional fast food (rarely) Dinner chicken/steak/pork chop w/veggie or salad Number of snacks per day: 2-3 Frequency of skipping meals per day if any: maybe 1 If you are tracking; how many calories are you getting and how many grams of protein and carbohydrate are getting a day? What do you usually drink? Water, Tea, Pop, Juice Physical Activity What are you currently doing as activity or exercise? Up/down stairs at home, walking stores How many times per week? 2-3 How long at each session? Stairs 10-15 min, store 30 min Any limitations you are currently having affecting your activity or exercise? Back pain Appetite: Is your appetite well controlled at this time? Varies Energy levels: Are your energy levels fairly good at this time? Improving Quality of Sleep: Are you sleeping well at this time? Most nights How many hours of sleep per night? 6-8 Do you feel rested when you wake up in the morning? Most of the time Do you have sleep apnea and if you do are you currently treated? No Level of Stress: What is the level of stress in your life currently? 8-10 How is your general mood? Depressed? Anxious? Both Medications: If you are currently taking any medication for your weight, are you having any problems with them? No Most recent weight: 294.8 Chief Complaint Patient presents with Obesity Weight Loss Patient Start time: Stop time: Pt who is a Body mass index is 47.61 kg/m . Ht 5' 5.98 (1.676 m) Wt 133.7 kg (294 lb 12.8 oz) Comment: pt. reported BMI 47.61 kg/m Patient's history of diet, exercise, sleep, stress and appetite control reviewed and confirmed with patient, please see the emergency medical services coordinator's note. This is a telemedicine encounter. This visit has been fully reviewed with the patient and verbal consent has been obtained. NOATAK: Patient here today for recheck through the [facility]. Patient admits to an increase in hunger/cravings. Energy levels are fair. Sleep is reasonable. Diet and exercise protocols are difficult to maintain due to appetite. Medications were reviewed today. Stress levels are manageable currently. For the rest of the review of systems and exam see the EMR. States she stress eats with situational stressors predominantly. Has been undermining her weight loss. She was not able to get the Trulicity due to insurance issues. ASSESSMENT: 1. Atypical eating disorder naltrexone (DEPADE, REVIA) 50 mg tablet 2. Insulin resistance metFORMIN (GLUCOPHAGE-XR) 500 MG 24 hr tablet 3. Vitamin D deficiency 4. Vitamin B6 deficiency 5. Obesity, Class III, BMI 40-49.9 (morbid obesity) ([facility]) topiramate (TOPAMAX) 100 MG tablet 6. BMI 45.0-49.9, adult ([facility]) Plan: Work on macronutrient targets in the diet regular exercise within the limits of orthopedics continue her nutritional replacement. Upon review of her insurance she requires a Metformin trial. She tried it remotely in the past but she is not sure of the reaction and the dosing. Still working to try to get in that way we have at least documented evidence on her current insurance for trial. We discussed having her take it with breakfast to help with the insulin resistant state. Also add some naltrexone low-dose to affect volume and reward. She needs to make sure there is a week between dose increments. We will see that helps a little bit with volume by the interplay with her Wellbutrin and also reward center blunting to allow for better redirection. We will proceed from there continue nutrient replacements recheck here in 4 weeks and see how she is doing This note was partially created using voice recognition software and is inherently subject to errors including those of syntax and sound-alike substitutions which may escape proofreading. In such instances, original meaning may be extrapolated by contextual derivation Medications reviewed with patient. The following portions of the patient's history were reviewed and updated as appropriate: allergies, current medications, past family history, past medical history, past social history, past surgical history and problem list . Review of Systems Constitutional: Positive for appetite change (stress eating -situtational). Negative for activity change, fatigue and unexpected weight change. Respiratory: Negative for chest tightness, shortness of breath and wheezing. Cardiovascular: Negative for chest pain, palpitations and leg swelling. Gastrointestinal: Negative for constipation and diarrhea. Musculoskeletal: Negative for arthralgias, joint swelling and myalgias. Neurological: Negative for dizziness, light-headedness, numbness and headaches. Psychiatric/Behavioral: Negative for agitation, behavioral problems, decreased concentration, dysphoric mood and sleep disturbance. The patient is not nervous/anxious and is not hyperactive. Physical Exam Vitals and nursing note reviewed. Constitutional: General: She is not in acute distress. Appearance: She is well-developed and well-nourished. Neurological: Mental Status: She is alert and oriented to person, place, and time. Past Medical History: Diagnosis Date Anxiety Asthma Depression Disease of thyroid gland hypothyroid Hodgkin's lymphoma (HCC) 09/2011 Lymphoma, Hodgkin's (HCC) Preeclampsia previous Social History Socioeconomic History Marital status: Tobacco Use Smoking status: Never Smoker Smokeless tobacco: Never Used Vaping Use Vaping Use: Never used Substance and Sexual Activity Alcohol use: Yes Drug use: Never Sexual activity: Yes Partners: Male Current Outpatient Medications Medication Sig Dispense Refill albuterol 90 mcg/actuation inhaler Inhale 2 (two) puffs every 6 (six) hours as needed for shortness of breath or cough . 18 g 0 budesonide-formoteroL (Symbicort) 80-4.5 mcg/actuation inhaler Inhale 2 (two) puffs 2 (two) times a day . 1 each 2 buPROPion (WELLBUTRIN XL) 300 MG 24 hr tablet Take 1 (one) tablet (300 mg total) by mouth daily . 30 tablet 11 busPIRone (BUSPAR) 5 MG tablet Take 1 (one) tablet (5 mg total) by mouth 3 (three) times a day . 90 tablet 1 cyanocobalamin, vitamin B-12, 1,[address] 1 (one) tablet (1,000 mcg total) under the tongue daily . 30 tablet 2 dulaglutide (Trulicity) 0.75 mg/0.5 mL Pen Inject 0.5 mL (0.75 mg total) under the skin every 7 days On hold for metformin trial . 2 mL 0 ergocalciferol (ERGOCALCIFEROL) 1,250 mcg (50,000 unit) capsule Take 1 (one) capsule (50,000 Units total) by mouth once a week Take with 500mg vitamin c and fatty meal . 4 capsule 1 ferrous sulfate 325 (65 FE) MG tablet Take 1 (one) tablet (325 mg total) by mouth every other day Take with 500mg of vitamin c . 15 tablet 1 inhaler, assist devices (OPTICHAMBER ADVANTAGE) Spcr As directed . 1 each 0 levothyroxine (SYNTHROID, LEVOTHROID) 175 MCG tablet Take 1 (one) tablet (175 mcg total) by mouth every morning . 30 tablet 3 metFORMIN (GLUCOPHAGE-XR) 500 MG 24 hr tablet Take 1 (one) tablet (500 mg total) by mouth daily with breakfast During breakfast . 30 tablet 1 miscellaneous medical supply [facility] Weight Scale dx obesity class III . 1 each 0 naltrexone (DEPADE, REVIA) 50 mg tablet 1/4 tab po every day with breakfast for 2 weeks then 1/4 tab po with breakfast and 1/4 tab with lunch . 15 tablet 1 predniSONE (DELTASONE) 10 MG tablet 4 tablets daily x 3 days, 3 tablets daily x 3 days, 2 tablets daily x 3 days, 1 tablet daily x 3 days . 30 tablet 0 pyridoxine, vitamin B6, (vitamin B-6) 25 MG tablet Take 1 (one) tablet (25 mg total) by mouth daily . 30 tablet 2 sertraline (ZOLOFT) 25 MG tablet Take 1 (one) tablet (25 mg total) by mouth nightly . 30 tablet 1 SUMAtriptan (IMITREX) 50 MG tablet Take 1 (one) tablet (50 mg total) by mouth every 2 (two) hours as needed for migraine Max of 200 mg in 24hrs . 10 tablet 1 topiramate (TOPAMAX) 100 MG tablet Take 1 (one) tablet (100 mg total) by mouth 2 (two) times a day . 60 tablet 1 No current facility-administered medications for this visit. Problem List Items Addressed This Visit Other Atypical eating disorder - Primary Relevant Medications naltrexone (DEPADE, REVIA) 50 mg tablet Other Visit Diagnoses Insulin resistance Relevant Medications metFORMIN (GLUCOPHAGE-XR) 500 MG 24 hr tablet Vitamin D deficiency Vitamin B6 deficiency Obesity, Class III, BMI 40-49.9 (morbid obesity) (HCC) Relevant Medications topiramate (TOPAMAX) 100 MG tablet BMI 45.0-49.9, adult (HCC) Continue the currently prescribed calorie load and composition. Return in about 4 weeks (around 08/28/2021) for Recheck. Counseling Time: minutes more than 50% of the time face to face discussing findings and coordinating care regarding medication management and education for disease processes and treatment protocol. Provider Location: [facility]NOTE 3] WEIGHT TREATMENT [address] [facility] [id number] Patient Location: [address] [place], [place] [id number] [facility]NOTE 3] WEIGHT TREATMENT [address] [facility] [id number] Virtual Visit [facility] 07/31/21 Lamberto Russo MD Provider Location: Patient Location Pulp Maker: None Patient Location: home Patient: Aurora Mendez Date of : 1985 (36 y.o. female) PCP: Evi Pacheco MD I instructed patient to contact me promptly with additional concerns. Virtual Visit Consent Statement: I discussed risks, benefits and alternatives of telemedicine consultation with the patient (and any accompanying persons) including the risks that the patient s personal health details and medical records will be discussed over interactive video/audio/telecommunication technology, may be recorded, and that there are inherent diagnostic limitations compared to [id number] evaluations. They elected to proceed with the telemedicine consultation. documented in this encounter [facility] 07-03-2021 History of Present illness Narrative Diet: What do you usually have to eat for the following meals: Breakfast - cereal; eggs & light/sausage; bagel Lunch - salad w/egg; leftovers Dinner - chicken/steak/pork chop & vegetable; burgers; turkey burgers; homemade egg rolls Number of snacks per day: 3-4 Frequency of skipping meals per day if any: 0 If you are tracking; how many calories are you getting and how many grams of protein and carbohydrate are getting a day? 1600 -1800; meeting protein, but carbs still high What do you usually drink? Water, Diet Pop, Juice Do you drink alcohol? No Physical Activity What are you currently doing as activity or exercise? Up & down stairs, walking store How many times per week? 2- 3 How long at each session? 30 min Any limitations you are currently having affecting your activity or exercise? Back pain Appetite: Is your appetite well controlled at this time? No Energy levels: Are your energy levels fairly good at this time? So so Quality of Sleep: Are you sleeping well at this time? Slowly improving How many hours of sleep per night? 6-7 buy up and down Do you feel rested when you wake up in the morning? No Do you have sleep apnea and if you do are you currently treated? Unsure Level of Stress: What is the level of stress in your life currently? 10. How is your general mood? Depressed & Anxious Medications: If you are currently taking any medication for your weight, are you having any problems with them? No Most recent weight: 295.0 Chief Complaint Patient presents with Obesity Weight Loss Patient Start time: Stop time: Pt who is a Body mass index is 47.61 kg/m . Ht 5' 6 (1.676 m) Wt 133.8 kg (295 lb) Comment: per pt BMI 47.61 kg/m Patient's history of diet, exercise, sleep, stress and appetite control reviewed and confirmed with patient, please see the emergency medical services coordinator's note. This is a telemedicine encounter. This visit has been fully reviewed with the patient and verbal consent has been obtained. NOATAK: Patient here today for recheck through the [facility]. Patient denies any increase in cravings or hunger. Energy levels are good. Sleep is excellent. Patient is able to adhere to the diet and exercise protocols as ordered. Medications were reviewed today and no problems noted. Stress levels are reasonably managed. For the rest of the review of systems and exam see the EMR. ASSESSMENT: 1. Atypical eating disorder 2. Insulin resistance 3. Vitamin D deficiency 4. Vitamin B6 deficiency 5. Lumbar radiculopathy 6. Obesity, Class II, BMI 35-39.9 topiramate (TOPAMAX) 100 MG tablet 7. Depression, unspecified depression type sertraline (ZOLOFT) 25 MG tablet 8. Obesity, Class III, BMI 40-49.9 (morbid obesity) (HCC) 9. BMI 45.0-49.9, adult (HCC) Plan: Work on macronutrient targets and diet regular exercise within limits orthopedics will escalate the Topamax for the reward eating behavior. Work on her macronutrient targets, Trulicity for set point physiology and volume control continue the low-dose sertraline for night eating behavior and assistance with mood control. Defer her breathing issues to her primary care team. Recheck here in the office in 4 weeks and see how she is doing sooner if she is worse. This note was partially created using voice recognition software and is inherently subject to errors including those of syntax and sound-alike substitutions which may escape proofreading. In such instances, original meaning may be extrapolated by contextual derivation Medications reviewed with patient. The following portions of the patient's history were reviewed and updated as appropriate: allergies, current medications, past family history, past medical history, past social history, past surgical history and problem list . Review of Systems Constitutional: Positive for appetite change (stress eating and snacking ). Negative for activity change, fatigue and unexpected weight change. Respiratory: Negative for chest tightness, shortness of breath and wheezing. Cardiovascular: Negative for chest pain, palpitations and leg swelling. Gastrointestinal: Negative for constipation and diarrhea. Musculoskeletal: Negative for arthralgias, joint swelling and myalgias. Neurological: Negative for dizziness, light-headedness, numbness and headaches. Psychiatric/Behavioral: Positive for dysphoric mood. Negative for agitation, behavioral problems, decreased concentration and sleep disturbance. The patient is nervous/anxious. The patient is not hyperactive. Physical Exam Vitals and nursing note reviewed. Constitutional: General: She is not in acute distress. Appearance: She is well-developed and well-nourished. Neurological: Mental Status: She is alert and oriented to person, place, and time. Past Medical History: Diagnosis Date Anxiety Asthma Depression Disease of thyroid gland hypothyroid Hodgkin's lymphoma (HCC) 09/2011 Lymphoma, Hodgkin's (HCC) Preeclampsia previous Social History Socioeconomic History Marital status: Tobacco Use Smoking status: Never Smoker Smokeless tobacco: Never Used Vaping Use Vaping Use: Never used Substance and Sexual Activity Alcohol use: Yes Drug use: Never Sexual activity: Yes Partners: Male Current Outpatient Medications Medication Sig Dispense Refill albuterol 90 mcg/actuation inhaler Inhale 2 (two) puffs every 6 (six) hours as needed for shortness of breath or cough . 18 g 0 budesonide-formoteroL (Symbicort) 80-4.5 mcg/actuation inhaler Inhale 2 (two) puffs 2 (two) times a day . 1 each 2 buPROPion (WELLBUTRIN XL) 300 MG 24 hr tablet Take 1 (one) tablet (300 mg total) by mouth daily . 30 tablet 11 busPIRone (BUSPAR) 5 MG tablet Take 1 (one) tablet (5 mg total) by mouth 3 (three) times a day . 90 tablet 1 cyanocobalamin, vitamin B-12, 1,[address] 1 (one) tablet (1,000 mcg total) under the tongue daily . 30 tablet 2 dulaglutide (Trulicity) 0.75 mg/0.5 mL Pen Inject 0.5 mL (0.75 mg total) under the skin every 7 days . 2 mL 0 ergocalciferol (ERGOCALCIFEROL) 1,250 mcg (50,000 unit) capsule Take 1 (one) capsule (50,000 Units total) by mouth once a week Take with 500mg vitamin c and fatty meal . 4 capsule 1 ferrous sulfate 325 (65 FE) MG tablet Take 1 (one) tablet (325 mg total) by mouth every other day Take with 500mg of vitamin c . 15 tablet 1 inhaler, assist devices (OPTICHAMBER ADVANTAGE) Spcr As directed . 1 each 0 levothyroxine (SYNTHROID, LEVOTHROID) 175 MCG tablet Take 1 (one) tablet (175 mcg total) by mouth every morning . 30 tablet 3 miscellaneous medical supply [facility] Weight Scale dx obesity class III . 1 each 0 predniSONE (DELTASONE) 10 MG tablet 4 tablets daily x 3 days, 3 tablets daily x 3 days, 2 tablets daily x 3 days, 1 tablet daily x 3 days . 30 tablet 0 pyridoxine, vitamin B6, (vitamin B-6) 25 MG tablet Take 1 (one) tablet (25 mg total) by mouth daily . 30 tablet 2 sertraline (ZOLOFT) 25 MG tablet Take 1 (one) tablet (25 mg total) by mouth nightly . 30 tablet 1 SUMAtriptan (IMITREX) 50 MG tablet Take 1 (one) tablet (50 mg total) by mouth every 2 (two) hours as needed for migraine Max of 200 mg in 24hrs . 10 tablet 1 topiramate (TOPAMAX) 100 MG tablet Take 1 (one) tablet (100 mg total) by mouth 2 (two) times a day . 60 tablet 1 No current facility-administered medications for this visit. Problem List Items Addressed This Visit Other Obesity, Class II, BMI 35-39.9 Relevant Medications topiramate (TOPAMAX) 100 MG tablet Atypical eating disorder - Primary Relevant Medications sertraline (ZOLOFT) 25 MG tablet Other Visit Diagnoses Insulin resistance Vitamin D deficiency Vitamin B6 deficiency Lumbar radiculopathy Depression, unspecified depression type Relevant Medications sertraline (ZOLOFT) 25 MG tablet Obesity, Class III, BMI 40-49.9 (morbid obesity) (HCC) BMI 45.0-49.9, adult (HCC) Continue the currently prescribed calorie load and composition. Return in about 4 weeks (around 07/31/2021) for Recheck. Counseling Time: minutes more than 50% of the time face to face discussing findings and coordinating care regarding medication management and education for disease processes and treatment protocol. Provider Location: [facility]NOTE 3] WEIGHT TREATMENT [address] [id number] Patient Location: [address] [place], [place] [id number] [facility]NOTE 3] WEIGHT TREATMENT [id number] Virtual Visit [facility] 07/03/21 Lamberto Russo MD Provider Location: Patient Location Pulp Maker: None Patient Location: home Patient: Aurora Mendez Date of : 1985 (36 y.o. female) PCP: Evi Pacheco MD I instructed patient to contact me promptly with additional concerns. Virtual Visit Consent Statement: I discussed risks, benefits and alternatives of telemedicine consultation with the patient (and any accompanying persons) including the risks that the patient s personal health details and medical records will be discussed over interactive video/audio/telecommunication technology, may be recorded, and that there are inherent diagnostic limitations compared to [id number] evaluations. They elected to proceed with the telemedicine consultation. documented in this encounter [facility] 06-11-2021 History of Present illness Narrative Hi Dr Pacheco, Thanks for taking the time to reach out. In response to your question, the expectation is NOT to take over the primary care duties for the patient but to assist in a collaborative fashion with a focus on nutrition, exercise and appetite regulation as well as assistance of management of comorbid conditions within the lens of improving the obese state. We will commonly change or add medications that treat other conditions with the intent to offset or reverse pathophysiologic or pharmacologically induced obesity with the hope to improve the other condition as well. I would use the analogy of a pipe finishing supervisor adjusting a hypertensive regimen started by primary care to getter better outcomes on a cardiomyopathy as well as the hypertensive state. We also look for other diseases caused or worsened by the obese state. In reference to the case mentioned, obesity does have some phenotypes that can cause predisposed individuals to develop asthma. The concern with the patient's persistent cough was that she may be one of those individuals, thus the workup and treatment. The follow up for this as a chronic condition would return to the primary team. I have included a link to a reference article on the subject for your review if that would be helpful. Hopefully, this clarifies things. Thank you for your referrals and I look forward to working with you, Dr Russo https://www.ncbi.nlm.nih.gov/pmc/a rticles/[email or web address] Aurora Mendez is a 36 y.o. female Video Visit [address] [facility] [address] [place] [address] Via Real-time Synchronous Audiovisual [facility] 06/08/2021 Evi Pacheco MD Provider Location: Office Patient Location Pulp Maker: None Patient Location: Patient's Home Patient: Aurora Mendez Date of : 1985 (36 y.o. female) PCP: Evi Pacheco MD Video Visit Consent Statement: I discussed risks, benefits and alternatives of a real-time synchronous audiovisual consultation with the patient (and any accompanying persons) including the risks that the patient s personal health details and medical records will be discussed over real-time, synchronous, interactive video/audio/telecommunication technology, the visit will not be recorded without the express consent of both the provider and the patient, and that there are some limitations compared to [id number] evaluations. We elected to proceed. Assessment/Plan: Problem List Items Addressed This Visit Other Cough - Primary 6 weeks s/p viral upper respiratory infection. Her weight loss provider did order a PFT and started her on Symbicort fo asthma. I reviewed the PFT, concern for small airway disease with response to a bronchodilator. I prescribed a short acting beta iraida today along with some as needed cough medication. Relevant Medications albuterol 90 mcg/actuation inhaler codeine-guaiFENesin (TUSSI-ORGANIDIN NR) 10-100 mg/5 mL syrup benzonatate (TESSALON) 200 MG capsule Anxiety and depression Chronic. She is wanting to continue the Buspar which I refilled per request. She was started on Zoloft and states she is still on Wellbutrin as well. May need to discussed management by either myself or weight loss provider but not both. Relevant Medications busPIRone (BUSPAR) 5 MG tablet Return for Next scheduled follow up. __ Aurora Mendez is a 36 y.o. female who presents for Chief Complaint Patient presents with Cough HPI 36 y/o female with a history of hypothyroidism who presents with a cough. This started a month ago after having a viral infection. Goes into coughing fits. Was told she has lung disease and started on Symbicort. Symptoms worse with exertion. Takes Mucinex, Delsum and jeronimo seltzer cough and cold. Suppress a little but not by much. It does wake her from her sleep. Takes a allergy pill daily. Patient Active Problem List Diagnosis Hodgkin's disease (HCC) Obesity, Class II, BMI 35-39.9 Hypothyroidism Leg swelling Anxiety and depression Migraine Atypical eating disorder Sleep disturbance Vaginal bleeding Cough Past Surgical History: Procedure Laterality Date SECTION, LOW TRANSVERSE Two prior CHEMOTHERAPY Hodgkins Lymphoma CHOLECYSTECTOMY RADIATION chest for Hodgkins Lyphoma TONSILLECTOMY AND ADENOIDECTOMY Family History Problem Relation Age of Onset Depression Mother Hypothyroidism Mother Diabetes Father Depression Father Chiari malformation Father Alcohol abuse Maternal Grandfather Colon cancer Maternal Grandfather Diabetes Paternal Grandmother Colon cancer Paternal Grandmother Social History Tobacco Use Smoking status: Never Smoker Smokeless tobacco: Never Used Vaping Use Vaping Use: Never used Substance Use Topics Alcohol use: Yes Drug use: Never Tobacco Counseling: Counseling given: Not Answered Current Outpatient Medications Medication Sig Dispense Refill budesonide-formoteroL (Symbicort) 80-4.5 mcg/actuation inhaler Inhale 2 (two) puffs 2 (two) times a day . 1 each 2 busPIRone (BUSPAR) 5 MG tablet Take 1 (one) tablet (5 mg total) by mouth 3 (three) times a day . 90 tablet 1 ergocalciferol (ERGOCALCIFEROL) 1,250 mcg (50,000 unit) capsule Take 1 (one) capsule (50,000 Units total) by mouth once a week Take with 500mg vitamin c and fatty meal . 4 capsule 1 levothyroxine (SYNTHROID, LEVOTHROID) 175 MCG tablet Take 1 (one) tablet (175 mcg total) by mouth every morning . 30 tablet 3 pyridoxine, vitamin B6, (vitamin B-6) 25 MG tablet Take 1 (one) tablet (25 mg total) by mouth daily . 30 tablet 2 sertraline (ZOLOFT) 25 MG tablet Take 1 (one) tablet (25 mg total) by mouth nightly . 30 tablet 1 topiramate (TOPAMAX) 50 MG tablet Take 1 (one) tablet (50 mg total) by mouth 2 (two) times a day . 60 tablet 1 albuterol 90 mcg/actuation inhaler Inhale 2 (two) puffs every 6 (six) hours as needed for shortness of breath or cough . 18 g 0 benzonatate (TESSALON) 200 MG capsule Take 1 (one) capsule (200 mg total) by mouth 3 (three) times a day as needed for cough . 20 capsule 0 buPROPion (WELLBUTRIN XL) 300 MG 24 hr tablet Take 1 (one) tablet (300 mg total) by mouth daily . 30 tablet 11 codeine-guaiFENesin (TUSSI-ORGANIDIN NR) 10-100 mg/5 mL syrup Take 5 mL by mouth 3 (three) times a day as needed for cough (Days supply per fill: 10) . 118 mL 0 cyanocobalamin, vitamin B-12, 1,[address] 1 (one) tablet (1,000 mcg total) under the tongue daily . 30 tablet 2 ferrous sulfate 325 (65 FE) MG tablet Take 1 (one) tablet (325 mg total) by mouth every other day Take with 500mg of vitamin c . 15 tablet 1 inhaler, assist devices (OPTICHAMBER ADVANTAGE) Spcr As directed . 1 each 0 miscellaneous medical supply [facility] [place] Weight Scale dx obesity class III . 1 each 0 SUMAtriptan (IMITREX) 50 MG tablet Take 1 (one) tablet (50 mg total) by mouth every 2 (two) hours as needed for migraine Max of 200 mg in 24hrs . 10 tablet 1 No current facility-administered medications for this visit. Review of Systems Constitutional: Negative for chills, diaphoresis, fatigue and fever. HENT: Negative for congestion and sore throat. Respiratory: Positive for cough and shortness of breath. Negative for chest tightness and wheezing. Cardiovascular: Negative for chest pain. Neurological: Negative for dizziness and light-headedness. Physical Exam: There were no vitals taken for this visit. Wt Readings from Last 3 Encounters: 06/02/21 130.8 kg (288 lb 6.4 oz) 04/28/21 134.7 kg (297 lb) 04/14/21 134.8 kg (297 lb 2.9 oz) BP Readings from Last 3 Encounters: 04/14/21 112/77 03/24/21 125/84 03/18/21 121/82 Physical Exam Constitutional: General: She is not in acute distress. Appearance: She is not ill-appearing. HENT: Head: Normocephalic. Eyes: Conjunctiva/sclera: Conjunctivae normal. Pulmonary: Effort: Pulmonary effort is normal. Comments: Coughing Skin: Findings: No rash. Neurological: Mental Status: She is oriented to person, place, and time. Psychiatric: Mood and Affect: Mood normal. Behavior: Behavior normal. Thought Content: Thought content normal. Health Maintenance Due Topic Date Due Pap Smear Never done Pneumococcal Vaccine: Ped or At-Risk (1 of 4 - PCV13) Never done COVID-19 Vaccine (1) Never done Sequential Influenza Vaccine (1) 04/15/2021 Please note: Portions of this chart may have been created with [employer] voice recognition software. Occasional wrong-word or sound-like substitutions may have occurred due to inherent limitations of the voice recognition software. Please read the chart carefully and recognize, using context, where the substitutions have occurred. For any new medications prescribed today, patient was educated about indications for the medication, how to take the medication and potential side effects of the medications. documented in [facility] 06-08-2021 Miscellaneous Notes Associated Problem(s): Cough 6 weeks s/p viral upper respiratory infection. Her weight loss provider did order a PFT and started her on Symbicort fo asthma. I reviewed the PFT, concern for small airway disease with response to a bronchodilator. I prescribed a short acting beta iraida today along with some as needed cough medication. Associated Problem(s): Anxiety and depression Chronic. She is wanting to continue the Buspar which I refilled per request. She was started on Zoloft and states she is still on Wellbutrin as well. May need to discussed management by either myself or weight loss provider but not both. documented in this encounter [facility] 06-08-2021 Miscellaneous Notes Associated Problem(s): Cough 6 weeks s/p viral upper respiratory infection. Her weight loss provider did order a PFT and started her on Symbicort fo asthma. I reviewed the PFT, concern for small airway disease with response to a bronchodilator. I prescribed a short acting beta iraida today along with some as needed cough medication. Associated Problem(s): Anxiety and depression Chronic. She is wanting to continue the Buspar which I refilled per request. She was started on Zoloft and states she is still on Wellbutrin as well. May need to discussed management by either myself or weight loss provider but not both. documented in this encounter [facility] 06-08-2021 History of Present illness Narrative Aurora Mendez is a 36 y.o. female [place] [facility] [address] [facility] [address] [facility] [id number] Via Real-time Synchronous Audiovisual [facility] 06/08/2021 Evi Pacheco MD Provider Location: Office Patient Location Pulp Maker: None Patient Location: Patient's Home Patient: Aurora Mendez Date of : 1985 (36 y.o. female) PCP: Evi Pacheco MD Video Visit Consent Statement: I discussed risks, benefits and alternatives of a real-time synchronous audiovisual consultation with the patient (and any accompanying persons) including the risks that the patient s personal health details and medical records will be discussed over real-time, synchronous, interactive video/audio/telecommunication technology, the visit will not be recorded without the express consent of both the provider and the patient, and that there are some limitations compared to [id number] evaluations. We elected to proceed. Assessment/Plan: Problem List Items Addressed This Visit Other Cough - Primary 6 weeks s/p viral upper respiratory infection. Her weight loss provider did order a PFT and started her on Symbicort fo asthma. I reviewed the PFT, concern for small airway disease with response to a bronchodilator. I prescribed a short acting beta iraida today along with some as needed cough medication. Relevant Medications albuterol 90 mcg/actuation inhaler codeine-guaiFENesin (TUSSI-ORGANIDIN NR) 10-100 mg/5 mL syrup benzonatate (TESSALON) 200 MG capsule Anxiety and depression Chronic. She is wanting to continue the Buspar which I refilled per request. She was started on Zoloft and states she is still on Wellbutrin as well. May need to discussed management by either myself or weight loss provider but not both. Relevant Medications busPIRone (BUSPAR) 5 MG tablet Return for Next scheduled follow up. __ Aurora Mendez is a 36 y.o. female who presents for Chief Complaint Patient presents with Cough HPI 36 y/o female with a history of hypothyroidism who presents with a cough. This started a month ago after having a viral infection. Goes into coughing fits. Was told she has lung disease and started on Symbicort. Symptoms worse with exertion. Takes Mucinex, Delsum and jeronimo seltzer cough and cold. Suppress a little but not by much. It does wake her from her sleep. Takes a allergy pill daily. Patient Active Problem List Diagnosis Hodgkin's disease (HCC) Obesity, Class II, BMI 35-39.9 Hypothyroidism Leg swelling Anxiety and depression Migraine Atypical eating disorder Sleep disturbance Vaginal bleeding Cough Past Surgical History: Procedure Laterality Date SECTION, LOW TRANSVERSE Two prior CHEMOTHERAPY Hodgkins Lymphoma CHOLECYSTECTOMY RADIATION chest for Hodgkins Lyphoma TONSILLECTOMY AND ADENOIDECTOMY Family History Problem Relation Age of Onset Depression Mother Hypothyroidism Mother Diabetes Father Depression Father Chiari malformation Father Alcohol abuse Maternal Grandfather Colon cancer Maternal Grandfather Diabetes Paternal Grandmother Colon cancer Paternal Grandmother Social History Tobacco Use Smoking status: Never Smoker Smokeless tobacco: Never Used Vaping Use Vaping Use: Never used Substance Use Topics Alcohol use: Yes Drug use: Never Tobacco Counseling: Counseling given: Not Answered Current Outpatient Medications Medication Sig Dispense Refill budesonide-formoteroL (Symbicort) 80-4.5 mcg/actuation inhaler Inhale 2 (two) puffs 2 (two) times a day . 1 each 2 busPIRone (BUSPAR) 5 MG tablet Take 1 (one) tablet (5 mg total) by mouth 3 (three) times a day . 90 tablet 1 ergocalciferol (ERGOCALCIFEROL) 1,250 mcg (50,000 unit) capsule Take 1 (one) capsule (50,000 Units total) by mouth once a week Take with 500mg vitamin c and fatty meal . 4 capsule 1 levothyroxine (SYNTHROID, LEVOTHROID) 175 MCG tablet Take 1 (one) tablet (175 mcg total) by mouth every morning . 30 tablet 3 pyridoxine, vitamin B6, (vitamin B-6) 25 MG tablet Take 1 (one) tablet (25 mg total) by mouth daily . 30 tablet 2 sertraline (ZOLOFT) 25 MG tablet Take 1 (one) tablet (25 mg total) by mouth nightly . 30 tablet 1 topiramate (TOPAMAX) 50 MG tablet Take 1 (one) tablet (50 mg total) by mouth 2 (two) times a day . 60 tablet 1 albuterol 90 mcg/actuation inhaler Inhale 2 (two) puffs every 6 (six) hours as needed for shortness of breath or cough . 18 g 0 benzonatate (TESSALON) 200 MG capsule Take 1 (one) capsule (200 mg total) by mouth 3 (three) times a day as needed for cough . 20 capsule 0 buPROPion (WELLBUTRIN XL) 300 MG 24 hr tablet Take 1 (one) tablet (300 mg total) by mouth daily . 30 tablet 11 codeine-guaiFENesin (TUSSI-ORGANIDIN NR) 10-100 mg/5 mL syrup Take 5 mL by mouth 3 (three) times a day as needed for cough (Days supply per fill: 10) . 118 mL 0 cyanocobalamin, vitamin B-12, 1,[address] 1 (one) tablet (1,000 mcg total) under the tongue daily . 30 tablet 2 ferrous sulfate 325 (65 FE) MG tablet Take 1 (one) tablet (325 mg total) by mouth every other day Take with 500mg of vitamin c . 15 tablet 1 inhaler, assist devices (OPTICHAMBER ADVANTAGE) Spcr As directed . 1 each 0 miscellaneous medical supply [facility] Weight Scale dx obesity class III . 1 each 0 SUMAtriptan (IMITREX) 50 MG tablet Take 1 (one) tablet (50 mg total) by mouth every 2 (two) hours as needed for migraine Max of 200 mg in 24hrs . 10 tablet 1 No current facility-administered medications for this visit. Review of Systems Constitutional: Negative for chills, diaphoresis, fatigue and fever. HENT: Negative for congestion and sore throat. Respiratory: Positive for cough and shortness of breath. Negative for chest tightness and wheezing. Cardiovascular: Negative for chest pain. Neurological: Negative for dizziness and light-headedness. Physical Exam: There were no vitals taken for this visit. Wt Readings from Last 3 Encounters: 06/02/21 130.8 kg (288 lb 6.4 oz) 04/28/21 134.7 kg (297 lb) 04/14/21 134.8 kg (297 lb 2.9 oz) BP Readings from Last 3 Encounters: 04/14/21 112/77 03/24/21 125/84 03/18/21 121/82 Physical Exam Constitutional: General: She is not in acute distress. Appearance: She is not ill-appearing. HENT: Head: Normocephalic. Eyes: Conjunctiva/sclera: Conjunctivae normal. Pulmonary: Effort: Pulmonary effort is normal. Comments: Coughing Skin: Findings: No rash. Neurological: Mental Status: She is oriented to person, place, and time. Psychiatric: Mood and Affect: Mood normal. Behavior: Behavior normal. Thought Content: Thought content normal. Health Maintenance Due Topic Date Due Pap Smear Never done Pneumococcal Vaccine: Ped or At-Risk (1 of 4 - PCV13) Never done COVID-19 Vaccine (1) Never done Sequential Influenza Vaccine (1) 04/15/2021 Please note: Portions of this chart may have been created with [employer] voice recognition software. Occasional wrong-word or sound-like substitutions may have occurred due to inherent limitations of the voice recognition software. Please read the chart carefully and recognize, using context, where the substitutions have occurred. For any new medications prescribed today, patient was educated about indications for the medication, how to take the medication and potential side effects of the medications. documented in [facility] 06-02-[facility]21 History of Present illness Narrative Chief Complaint Patient presents with Weight Loss Obesity Patient Start time: Stop time: Pt who is a Body mass index is 46.55 kg/m . Ht 5' 6 (1.676 m) Wt 130.8 kg (288 lb 6.4 oz) Comment: per pt BMI 46.55 kg/m Patient's history of diet, exercise, sleep, stress and appetite control reviewed and confirmed with patient, please see the emergency medical services coordinator's note. This is a telemedicine encounter. This visit has been fully reviewed with the patient and verbal consent has been obtained. NOATAK: Patient here today for recheck through the [facility]. Patient admits to an increase in hunger/cravings. Energy levels are fair. Sleep is reasonable. Diet and exercise protocols are difficult to maintain due to appetite. Medications were reviewed today. Stress levels are manageable currently. For the rest of the review of systems and exam see the EMR. She has been ill for the last 4 weeks and that is impact her activity levels as well as dietary strategy. ASSESSMENT: 1. Atypical eating disorder 2. Lumbar radiculopathy 3. Vitamin D deficiency 4. Vitamin B6 deficiency 5. Mild intermittent asthma, unspecified whether complicated budesonide-formoteroL (Symbicort) 80-4.5 mcg/actuation inhaler inhaler, assist devices (Breath of LifeHAMBER ADVANTAGE) Spcr 6. Obesity, Class II, BMI 35-39.9 topiramate (TOPAMAX) 50 MG tablet 7. Other specified hypothyroidism levothyroxine (SYNTHROID, LEVOTHROID) 175 MCG tablet 8. Depression, unspecified depression type sertraline (ZOLOFT) 25 MG tablet 9. BMI 45.0-49.9, adult ([facility]) Plan: Work on macronutrient targets and diet regular exercise within the limits of orthopedics her pulmonary function so some reactive airway component consistent with mild intermittent asthma which is borderline. We will move to a Symbicort inhaler and will use that consistently while she has the wheezing and tightness gradually move that to an as-needed basis continue thyroid supplementation continue her Topamax and sertraline for both mood disorder and volume controls. And radicular symptomatologyAnd will proceed from there we will reassess here in the office in 4 weeks and see how she is progressing sooner if she is worse. This note was partially created using voice recognition software and is inherently subject to errors including those of syntax and sound-alike substitutions which may escape proofreading. In such instances, original meaning may be extrapolated by contextual derivation Medications reviewed with patient. The following portions of the patient's history were reviewed and updated as appropriate: allergies, current medications, past family history, past medical history, past social history, past surgical history and problem list . Review of Systems Constitutional: Positive for appetite change and fatigue. Negative for activity change and unexpected weight change. Respiratory: Negative for chest tightness, shortness of breath and wheezing. Cardiovascular: Negative for chest pain, palpitations and leg swelling. Gastrointestinal: Negative for constipation and diarrhea. Musculoskeletal: Negative for arthralgias, joint swelling and myalgias. Neurological: Negative for dizziness, light-headedness, numbness and headaches. Psychiatric/Behavioral: Negative for agitation, behavioral problems, decreased concentration, dysphoric mood and sleep disturbance. The patient is not nervous/anxious and is not hyperactive. Physical Exam Vitals and nursing note reviewed. Constitutional: General: She is not in acute distress. Appearance: She is well-developed. Neurological: Mental Status: She is alert and oriented to person, place, and time. Past Medical History: Diagnosis Date Anxiety Asthma Depression Disease of thyroid gland hypothyroid Hodgkin's lymphoma (HCC) 09/2011 Lymphoma, Hodgkin's (HCC) Preeclampsia previous Social History Socioeconomic History Marital status: Spouse name: Not on file Number of children: Not on file Years of education: Not on file Highest education level: Not on file Occupational History Not on file Tobacco Use Smoking status: Never Smoker Smokeless tobacco: Never Used Vaping Use Vaping Use: Never used Substance and Sexual Activity Alcohol use: Yes Drug use: Never Sexual activity: Yes Partners: Male Other Topics Concern Not on file Social History Narrative Not on file Social Determinants of Health Financial Resource Strain: Difficulty of Paying Living Expenses: Not on file Food Insecurity: Worried About Running Out of Food in the Last Year: Not on file Ran Out of Food in the Last Year: Not on file Transportation Needs: Lack of Transportation (Medical): Not on file Lack of Transportation (Non-Medical): Not on file Physical Activity: Days of Exercise per Week: Not on file Minutes of Exercise per Session: Not on file Stress: Feeling of Stress : Not on file Social Connections: Frequency of Communication with Friends and Family: Not on file Frequency of Social Gatherings with Friends and Family: Not on file Attends Pent[employer]al Services: Not on file Active Member of Clubs or Organizations: Not on file Attends Club or Organization Meetings: Not on file Marital Status: Not on file Housing Stability: Unable to Pay for Housing in the Last Year: Not on file Number of Places Lived in the Last Year: Not on file Unstable Housing in the Last Year: Not on file Current Outpatient Medications Medication Sig Dispense Refill budesonide-formoteroL (Symbicort) 80-4.5 mcg/actuation inhaler Inhale 2 (two) puffs 2 (two) times a day . 1 each 2 buPROPion (WELLBUTRIN XL) 300 MG 24 hr tablet Take 1 (one) tablet (300 mg total) by mouth daily . 30 tablet 11 busPIRone (BUSPAR) 5 MG tablet Take 1 (one) tablet (5 mg total) by mouth 3 (three) times a day . (Patient not taking: Reported on 04/14/2021 .) 90 tablet 1 cyanocobalamin, vitamin B-12, 1,[address] 1 (one) tablet (1,000 mcg total) under the tongue daily . 30 tablet 2 ergocalciferol (ERGOCALCIFEROL) 1,250 mcg (50,000 unit) capsule Take 1 (one) capsule (50,000 Units total) by mouth once a week Take with 500mg vitamin c and fatty meal . 4 capsule 1 ferrous sulfate 325 (65 FE) MG tablet Take 1 (one) tablet (325 mg total) by mouth every other day Take with 500mg of vitamin c . 15 tablet 1 inhaler, assist devices (OPTICHAMBER ADVANTAGE) Spcr As directed . 1 each 0 levothyroxine (SYNTHROID, LEVOTHROID) 175 MCG tablet Take 1 (one) tablet (175 mcg total) by mouth every morning . 30 tablet 3 miscellaneous medical supply [facility] [place] Weight Scale dx obesity class III . 1 each 0 pyridoxine, vitamin B6, (vitamin B-6) 25 MG tablet Take 1 (one) tablet (25 mg total) by mouth daily . 30 tablet 2 sertraline (ZOLOFT) 25 MG tablet Take 1 (one) tablet (25 mg total) by mouth nightly . 30 tablet 1 SUMAtriptan (IMITREX) 50 MG tablet Take 1 (one) tablet (50 mg total) by mouth every 2 (two) hours as needed for migraine Max of 200 mg in 24hrs . 10 tablet 1 topiramate (TOPAMAX) 50 MG tablet Take 1 (one) tablet (50 mg total) by mouth 2 (two) times a day . 60 tablet 1 No current facility-administered medications for this visit. Problem List Items Addressed This Visit Endocrine Hypothyroidism Relevant Medications levothyroxine (SYNTHROID, LEVOTHROID) 175 MCG tablet Other Obesity, Class II, BMI 35-39.9 Relevant Medications topiramate (TOPAMAX) 50 MG tablet Atypical eating disorder - Primary Relevant Medications sertraline (ZOLOFT) 25 MG tablet Other Visit Diagnoses Lumbar radiculopathy Vitamin D deficiency Vitamin B6 deficiency Mild intermittent asthma, unspecified whether complicated Relevant Medications budesonide-formoteroL (Symbicort) 80-4.5 mcg/actuation inhaler inhaler, assist devices (OPTICHAMBER ADVANTAGE) Spcr Depression, unspecified depression type Relevant Medications sertraline (ZOLOFT) 25 MG tablet BMI 45.0-49.9, adult (HCC) Continue the currently prescribed calorie load and composition. Return in about 4 weeks (around 06/30/2021) for Recheck. Counseling Time: minutes more than 50% of the time face to face discussing findings and coordinating care regarding medication management and education for disease processes and treatment protocol. Provider Location: [facility] [place]NOTE 3] WEIGHT TREATMENT [address] [facility] [id number] Patient Location: [address] [place], [place] [id number] [facility] [place]NOTE 3] WEIGHT TREATMENT [address] [facility] [id number] Virtual Visit [facility] 06/02/21 Lamberto Russo MD Provider Location: Patient Location Pulp Maker: None Patient Location: home Patient: Aurora Mendez Date of : 1985 (36 y.o. female) PCP: Evi Pacheco MD I instructed patient to contact me promptly with additional concerns. Virtual Visit Consent Statement: I discussed risks, benefits and alternatives of telemedicine consultation with the patient (and any accompanying persons) including the risks that the patient s personal health details and medical records will be discussed over interactive video/audio/telecommunication technology, may be recorded, and that there are inherent diagnostic limitations compared to [id number] evaluations. They elected to proceed with the telemedicine consultation. Diet: Breakfast - cereal, high protein oatmeal, eggs w/sausage or light Lunch - salad w/egg & meat, fish w/ veggie or cottage cheese, pizza, leftovers Dinner - steak/chicken/pork chops w/ 2 veggies or a salad, tacos, turkey burgers, meatloaf, pizza Number of snacks per day: 1 to 3 Frequency of skipping meals per day if any: more often last few weeks as I was really sick Lost track of tracking calories while sick. Working on starting back up. What do you usually drink? Water, Tea, diet pop, coffee occasionally Do you drink alcohol? What type? Mixed Drinks, seltzer, vodka (VERY seldom) How many drinks per week? 0 to 2-4 Physical Activity What are you currently doing as activity or exercise? Some walking - about 15-20 minutes 1 to 2 times a week if able. Up and down stairs at home. Any limitations you are currently having affecting your activity or exercise? Dyspnea, back pain Is your appetite well controlled at this time? Somewhat Are your energy levels fairly good at this time? Low lately due to being sick. Are you sleeping well at this time? No How many hours of sleep per night? 4-6 Do you feel rested when you wake up in the morning? No Do you have sleep apnea and if you do are you currently treated? Not sure What is the level of stress in your life currently? 10 How is your general mood? Depressed & anxious Medications: No issues with meds Most recent weight: 288.4 Most recent Blood Pressure: not sure documented in this encounter [facility] 04-28-[facility]21 History of Present illness Narrative Diet: What do you usually have to eat for the following meals: Breakfast - eggs, breakfast meat/bagel with cream cheese/oatmeal/protein shake Lunch - salad with meat on it/turkey burger/lunch meat on wrap or low carb bread/cottage cheese or veggies Dinner - turkey burger/steak/chicken/asparagus or green beans/steamed carrots or broccoli/tacos Number of snacks per day: 2 to 3 Frequency of skipping meals per day if any: Have skipped snacks How many calories are you getting and how many grams of protein and carbohydrate are getting a day? 1900 to 1190. Still having trouble with carbs, but meeting protein most days What do you usually drink? Water, Diet Pop, Juice Do you drink alcohol? None How many drinks per week? No alcohol Physical Activity What are you currently doing as activity or exercise? None How many times per week? N/a How long at each session? N/a Any limitations you are currently having affecting your activity or exercise? Back pain and leg pain Is your appetite well controlled at this time? No Are your energy levels fairly good at this time? No Are you sleeping well at this time? No How many hours of sleep per night? 5-6 Do you feel rested in the morning? No Do you have sleep apnea? Still waiting for sleep study Level of Stress: What is the level of stress in your life currently? 8 How is your general mood? It's OK. Still have times of depression and anxiety. Medications are fine. No issues. Most recent weight: no scale yet Chief Complaint Patient presents with Weight Loss Obesity Patient Start time: Stop time: Pt who is a Body mass index is 47.94 kg/m . Ht 5' 6 (1.676 m) Wt 134.7 kg (297 lb) Comment: last recorded weight BMI 47.94 kg/m Patient's history of diet, exercise, sleep, stress and appetite control reviewed and confirmed with patient, please see the emergency medical services coordinator's note. This is a telemedicine encounter. This visit has been fully reviewed with the patient and verbal consent has been obtained. NOATAK: Patient [facility] Patient admits to an increase in hunger/cravings. Energy levels are fair. Sleep is reasonable. Diet and exercise protocols are difficult to maintain due to appetite. Medications were reviewed today. Stress levels are manageable currently. For the rest of the review of systems and exam see the EMR. Struggles with some reward eating behavior still. ASSESSMENT: 1. Atypical eating disorder 2. Vitamin D deficiency ergocalciferol (ERGOCALCIFEROL) 1,250 mcg (50,000 unit) capsule 3. Vitamin B6 deficiency pyridoxine, vitamin B6, (vitamin B-6) 25 MG tablet 4. Iron deficiency ferrous sulfate 325 (65 FE) MG tablet 5. Hypothyroidism (acquired) TSH T4, Free T3 6. Other specified hypothyroidism levothyroxine (SYNTHROID, LEVOTHROID) 175 MCG tablet 7. Obesity, Class III, BMI 40-49.9 (morbid obesity) (HCC) cyanocobalamin, vitamin B-12, 1,000 mcg Subl miscellaneous medical supply [facility] 8. BMI 45.0-49.9, adult (HCC) 9. Lumbar radiculopathy Ambulatory Ref to Minnie/Rocio (PT/OT/ST) 10. Patellofemoral stress syndrome, unspecified laterality 11. Fatty liver 12. Encounter for screening examination for impaired glucose regulation and diabetes mellitus Insulin, Total Insulin, Total Insulin, Total Glucose Tolerance, Standard (75g) Plan: Further questioning she still has a fair amount of carb cravings she will try to make healthier choices we will get a glucose tolerance test with insulin levels. She did have on imaging some evidence for fatty liver which further suggest insulin resistance physiology. Adjusted down her thyroid dose as she is hyperthyroid clinically based on lab assessments. Subsequent iron B6 and D to more optimal levels. Consider physical therapy for her lumbar radiculopathy symptomatology. See if that improves her exercise tolerance may need to consider trial of neuromodulator such as zonisamide or Topamax in the near future. Will reassess here in the office in 4 weeks and see how she is progressing sooner if she is worse. This note was partially created using voice recognition software and is inherently subject to errors including those of syntax and sound-alike substitutions which may escape proofreading. In such instances, original meaning may be extrapolated by contextual derivation Medications reviewed with patient. The following portions of the patient's history were reviewed and updated as appropriate: allergies, current medications, past family history, past medical history, past social history, past surgical history and problem list . Review of Systems Constitutional: Positive for appetite change and fatigue. Negative for activity change and unexpected weight change. Respiratory: Negative for chest tightness, shortness of breath and wheezing. Cardiovascular: Negative for chest pain, palpitations and leg swelling. Gastrointestinal: Negative for constipation and diarrhea. Musculoskeletal: Positive for arthralgias and back pain. Negative for joint swelling and myalgias. Neurological: Negative for dizziness, light-headedness, numbness and headaches. Psychiatric/Behavioral: Positive for sleep disturbance. Negative for agitation, behavioral problems, decreased concentration and dysphoric mood. The patient is not nervous/anxious and is not hyperactive. Physical Exam Vitals and nursing note reviewed. Constitutional: General: She is not in acute distress. Appearance: She is well-developed. Neurological: Mental Status: She is alert and oriented to person, place, and time. Past Medical History: Diagnosis Date Anxiety Asthma Depression Disease of thyroid gland hypothyroid Hodgkin's lymphoma (HCC) 09/2011 Lymphoma, Hodgkin's (HCC) Preeclampsia previous Social History Socioeconomic History Marital status: Spouse name: Not on file Number of children: Not on file Years of education: Not on file Highest education level: Not on file Occupational History Not on file Tobacco Use Smoking status: Never Smoker Smokeless tobacco: Never Used Vaping Use Vaping Use: Never used Substance and Sexual Activity Alcohol use: Yes Drug use: Never Sexual activity: Yes Partners: Male Other Topics Concern Not on file Social History Narrative Not on file Social Determinants of Health Financial Resource Strain: Difficulty of Paying Living Expenses: Not on file Food Insecurity: Worried About Running Out of Food in the Last Year: Not on file Ran Out of Food in the Last Year: Not on file Transportation Needs: Lack of Transportation (Medical): Not on file Lack of Transportation (Non-Medical): Not on file Physical Activity: Days of Exercise per Week: Not on file Minutes of Exercise per Session: Not on file Stress: Feeling of Stress : Not on file Social Connections: Frequency of Communication with Friends and Family: Not on file Frequency of Social Gatherings with Friends and Family: Not on file Attends [employer] Services: Not on file Active Member of Clubs or Organizations: Not on file Attends Club or Organization Meetings: Not on file Marital Status: Not on file Housing Stability: Unable to Pay for Housing in the Last Year: Not on file Number of Places Lived in the Last Year: Not on file Unstable Housing in the Last Year: Not on file Current Outpatient Medications Medication Sig Dispense Refill buPROPion (WELLBUTRIN XL) 300 MG 24 hr tablet Take 1 (one) tablet (300 mg total) by mouth daily . 30 tablet 11 busPIRone (BUSPAR) 5 MG tablet Take 1 (one) tablet (5 mg total) by mouth 3 (three) times a day . (Patient not taking: Reported on 04/14/2021 .) 90 tablet 1 cyanocobalamin, vitamin B-12, 1,[address] 1 (one) tablet (1,000 mcg total) under the tongue daily . 30 tablet 2 ergocalciferol (ERGOCALCIFEROL) 1,250 mcg (50,000 unit) capsule Take 1 (one) capsule (50,000 Units total) by mouth once a week Take with 500mg vitamin c and fatty meal . 4 capsule 1 ferrous sulfate 325 (65 FE) MG tablet Take 1 (one) tablet (325 mg total) by mouth every other day Take with 500mg of vitamin c . 15 tablet 1 FLUoxetine (PROZAC) 40 MG capsule Take 1 (one) capsule (40 mg total) by mouth daily . 90 capsule 0 levothyroxine (SYNTHROID, LEVOTHROID) 175 MCG tablet Take 1 (one) tablet (175 mcg total) by mouth every morning . 30 tablet 1 miscellaneous medical supply [facility] Weight Scale dx obesity class III . 1 each 0 pyridoxine, vitamin B6, (vitamin B-6) 25 MG tablet Take 1 (one) tablet (25 mg total) by mouth daily . 30 tablet 2 sertraline (ZOLOFT) 25 MG tablet Take 1 (one) tablet (25 mg total) by mouth nightly . 30 tablet 1 SUMAtriptan (IMITREX) 50 MG tablet Take 1 (one) tablet (50 mg total) by mouth every 2 (two) hours as needed for migraine Max of 200 mg in 24hrs . 10 tablet 1 topiramate (TOPAMAX) 50 MG tablet Take 1 (one) tablet (50 mg total) by mouth 2 (two) times a day . 60 tablet 1 No current facility-administered medications for this visit. Problem List Items Addressed This Visit Endocrine Hypothyroidism Relevant Medications levothyroxine (SYNTHROID, LEVOTHROID) 175 MCG tablet Other Atypical eating disorder - Primary Other Visit Diagnoses Vitamin D deficiency Relevant Medications ergocalciferol (ERGOCALCIFEROL) 1,250 mcg (50,000 unit) capsule Vitamin B6 deficiency Relevant Medications pyridoxine, vitamin B6, (vitamin B-6) 25 MG tablet Iron deficiency Relevant Medications ferrous sulfate 325 (65 FE) MG tablet Hypothyroidism (acquired) Relevant Medications levothyroxine (SYNTHROID, LEVOTHROID) 175 MCG tablet Other Relevant Orders TSH T4, Free T3 Obesity, Class III, BMI 40-49.9 (morbid obesity) (HCC) Relevant Medications cyanocobalamin, vitamin B-12, 1,000 mcg Subl miscellaneous medical supply [facility] BMI 45.0-49.9, adult (HCC) Lumbar radiculopathy Relevant Orders Ambulatory Ref to Minnie/Rocio (PT/OT/ST) Patellofemoral stress syndrome, unspecified laterality Fatty liver Encounter for screening examination for impaired glucose regulation and diabetes mellitus Relevant Orders Insulin, Total Insulin, Total Insulin, Total Glucose Tolerance, Standard (75g) Continue the currently prescribed calorie load and composition. No follow-ups on file. Counseling Time: minutes more than 50% of the time face to face discussing findings and coordinating care regarding medication management and education for disease processes and treatment protocol. Provider Location: [facility]NOTE 3] WEIGHT TREATMENT [address] [id number] Patient Location: [facility] [address] [place] [id number] [facility] [place]NOTE 3] WEIGHT TREATMENT [address] [facility] [id number] Virtual Visit [facility] 04/28/21 Lamberto Russo MD Provider Location: Patient Location Pulp Maker: None Patient Location: home Patient: Aurora Mendez Date of : 1985 (35 y.o. female) PCP: Evi Pacheco MD I instructed patient to contact me promptly with additional concerns. Virtual Visit Consent Statement: I discussed risks, benefits and alternatives of telemedicine consultation with the patient (and any accompanying persons) including the risks that the patient s personal health details and medical records will be discussed over interactive video/audio/telecommunication technology, may be recorded, and that there are inherent diagnostic limitations compared to [id number] evaluations. They elected to proceed with the telemedicine consultation. documented in this encounter [facility] 04-14-2021 History of Present illness Narrative Medical Weight Management Nutrition Visit 3:30-4:20 pm Aurora Mendez is here for enrollment in Medical Weight Management Program, Rx 1600 calories , 160 g protein, 80g carbs daily, using 2 High protein shakes, protein first, 6 mini meals Height: 5' 6 (1.676 m) Current weight: 134.8 kg (297 lb 2.9 oz) Body mass index is 47.97 kg/m . BMI Classification: Obese Class III (>40.0) Subjective: Live with boyfriend and 2 kids 11 yo, 2 yo. Pt cooks. 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 Current Diet: Breakfast cereal or eggs and or brk meat or bagel with butter or cream cheese Lunch pizza or fish, veggie or fast food Dinner meat, veggie/salad or tacos Dislike some veggies. Number of snacks per day: 1-2 - popcorn, veggies, fruit Frequency of skipping meals per day if any: sometimes breakfast If you are tracking; how many calories are you getting and how many grams of protein and carbohydrate are getting a day? Not currently What do you usually drink? Water, Tea, Pop- regular was 3-4 per day-none as of yesterday, body armour Do you drink alcohol? rarely Assessment of Diet: High is sugar from soda until 2 days ago. Exercise Assessment: Patient is not exercising regularly. Intervention: Carlos Enrique fallon of [facility] Medical Weight Management Program: *Meal Plan *Adequate Water minimum 64 oz, encourage 80-100 oz. *Commercial High Protein Beverage Guidelines: minimum 20 g protein per serving, max 15 g carbs per serving. *Exercise-Prescribed by Dr Russo. Even if you are inactive and out of shape, one may improve ones health by moving just a little more. Take small steps to add more movement into daily life. Any amount of physical activity is better than none at all. Making physical activity part of ones daily lifestyle bryan calories even if its not part of a structured plan. Break activity into three 10 minutes sessions throughout the day. If you're currently inactive, it's important to ease into a more active lifestyle and not do it all at once. Start with 5 or 10 minutes at a time and build up to at least 30 minutes of moderate-intensity endurance activity on most or all days of the week. *Benefits of keeping a daily food/exercise diary *Weekly weigh-ins if desired- *Weekly ZOOM-based classes-optional *How psychologists help with weight management. * Adequate sleep. *Stress reduction. Weight is a complex issue - genetic, metabolic, microbiomic, environmental, behavioral and psychosocial. Nutrition Education: Personalized meal plan with 1600 calories , 160 g protein, 80g carbs daily, using 2 High protein shakes, protein first, 6 mini meals Food Groups-Types of foods, servings sizes of food in each food group. Sources of protein. High protein supplements Importance of protein in weight management. Discussed the variety of high protein supplement brands and flavors 25-30 grams protein may be needed at a meal to provide sufficient leucine for muscle anabolism. Eat protein at each eating occasion. For better protein absorption to divide protein intake into meals and snacks instead of having one big protein heavy meal. Importance of vegetables and different ways to prepare them. Encouraged keeping a food and exercise diary. Examples given. Nutrition Counseling: Normalize eating: How to recognize hunger and fullness, mindful eating techniques Nutrition recommendations were reviewed with patient and example meals were provided. Patient was advised to drink adequate beverages from non calorie sources in addition to meal replacement beverages. Meal Plan: 1600 calories with 160 g protein, 80 g carbs, 71 g fat -includes 2 protein supplements Per day: 13 oz meat/meat substitute 3.5 carb choices (starch or fruit or milk/yogurt) 4 vegetables 5 fats 2 protein supplements Time Food List Sample Menu Breakfast 3 oz protein 1.5 carb choice (starch/fruit/milk) 1 veg if desired 1 fat 3 eggs or 3/4 C. cottage cheese 1 whole grain toast or fruit C milk 1 tsp margarine or 2 Tbsp avocado Snack 3 oz meat 3/4 C cottage cheese Lunch 4 oz protein 1 carb choice (starch/fruit/milk) 2 veg 2 fat 3 oz taco seasoned chicken + 1 oz reduced fat cheese C. corn, C black beans 2 C. raw veggies 2 Tbsp sour cream, 2 Tbsp avocado C. salsa=free Snack Protein shake Protein shake Supper 3 oz protein 1 carb choice (starch/fruit/milk) 2 veg 2 fat 3 oz lean hamburger 3 oz baked potato C. mushrooms, C. onions sauteed in water or broth 2 tsp margarine Snack Protein shake Protein shake Meal plan is 20% carbs, 40% protein and 40% fat. Handouts Given: [facility] Medical Weight Management Handout Medical Weight Management Goal Setting for exercise How Psychologists Help with Weight Management Mindful Eating Food Group Lists Protein Supplement List Personal Meal Plan Goals Addressed This Visit's Progress Good Nutrition 04/14/21 Plan menus 3 days at a time. Log food in mycujoo pal. Note: Losing more than 2 pounds a week on a regular basis may cause you to lose muscle mass. Some people who have a smaller amount of weight to lose may only lose pound or less a week. A gradual weight loss of 1 to 2 pounds a week helps you lose fat, not muscle. In the early stages, you may lose more weight since it may be largely water weight. Try not to binge, but even if you slip, forgive yourself and get back to following healthy habits. Remember, it takes time to form new healthy eating habits. Monitoring/Evaluation: Patient verbalized understanding yes Barriers to learning: no Level of motivation: good Expected compliance: good Support person attended: no Follow up: prn, pt declined to schedule f/u at this time, encouraged f/u when seasons or routines change. The patient was given my contact information and encouraged to send a Tiggly message with any questions or concerns. Alem Barnett RDN, LD, CDCES documented in this encounter [facility] 04-14-2021 History of Present illness Narrative Chief Complaint Patient presents with Weight Gain NOATAK: Patient here today for consultation through the [facility]. Patient is a 35 y.o. [1]female struggle with her weight since early adolescence. She is gained weight loss weight multiple times with multiple different techniques. She has never been able to keep it off longer term. Really seem to accelerate after and after being diagnosed with hypothyroidism. She is tried calorie restriction, high-protein low-carb, low-fat, meal replacements, it works, physician weight loss with modest success. She did the best losing 20 pounds with Adipex Wellbutrin Topamax and Ambien. She struggles with cravings for soda and fast food. BMs worse in the afternoon and evenings. Also seems to worse around the menstrual cycle. She struggles with reward eating. She tries to exercise but is limited a little bit by dyspnea and low back pain. Recently she was on a walking program and tore calf muscle and that limit her activities. She currently does not have any gym equipment or gym membership's but she could get a gym membership. She played basketball in high school until she had an ankle injury. 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 States cravings for sweets and cola are the most challenging components. She does complain of dyspnea on exertion. States she was treated for Hodgkin's lymphoma in 2012 and having chemo radiation. Predominantly radiation to the chest. States she has troubles with certain foods of bloating cramping diarrhea. Particularly dairy and fast food. She also has some lower lumbar pain no sciatica symptomatology. She is in a history of restless leg syndrome in the past. Struggles with depressive symptomatology largely resolves around issues with her partner. sHe has been on Viibryd, Celexa, Effexor, Wellbutrin, Prozac with modest success. She also has some underlying knee pain occasionally limiting. Sleeps a challenge, she wakes up multiple times a night and has trouble trying to get back to sleep. She snores she has some restless leg symptomatology is up 3-4 times a night [place] Sleepiness Scale is 9. She wakes up tired. Moods are challenged Dunham Depression Inventory score is 24. Reviewed her medications here today. Past medical family social history full review of systems reviewed detail please see EMR intake questionnaires. Impression: Weight gain multifactorial predominantly reward eating behavior with concern for secondary insulin resistance and associated sleep disorder exacerbated by major depression. For the rest the diagnoses please see list below Problem List Items Addressed This Visit Endocrine Hypothyroidism Relevant Orders T3 T4, Free TSH Thyroid Antibody Group Cardiovascular and Mediastinum Migraine Relevant Medications topiramate (TOPAMAX) 50 MG tablet topiramate (TOPAMAX) 25 MG tablet Other Obesity, Class II, BMI 35-39.9 Relevant Medications topiramate (TOPAMAX) 50 MG tablet Atypical eating disorder Relevant Medications sertraline (ZOLOFT) 25 MG tablet Other Visit Diagnoses Weight gain - Primary Relevant Orders CBC and Differential Comprehensive Metabolic Panel Hemoglobin A1c Insulin, Total Fatigue, unspecified type Sleep disorder Relevant Orders Ambulatory referral to Sleep Medicine Depression, unspecified depression type Relevant Medications sertraline (ZOLOFT) 25 MG tablet Elevated LFTs Relevant Orders US Abdomen Limited Study Liver Fibrosis, Fibro Test Diarrhea, unspecified type Relevant Orders Fecal Fat, Quantitative Pancreatic Elastase, Fecal Celiac Serology [place] Panel Celiac Associated HLA_DQ Typing Dyspnea, unspecified type Relevant Orders Complete PFT with Pre and Post Bronchodilator volumes and dlco XR Chest AP/PA and LAT NT Pro BNP Chronic midline low back pain without sciatica Relevant Orders XR Lumbar Spine 2-3 Views (Standard) Chronic pain of both knees Relevant Orders XR Knees Bilateral WB OA 3 Views Intestinal malabsorption, unspecified type Relevant Orders Ferritin Folate Iron and TIBC Lipoprotein NMR Magnesium Level Uric Acid Vitamin B12 Vitamin B6 Vitamin D, Total, 25-OH Vitamin B1, Whole Blood BMI 45.0-49.9, adult (HCC) Relevant Orders Ambulatory referral to Nutrition Services Exposure to COVID-19 virus Relevant Orders COVID-19, Molecular Plan: 1600 ronny 160 g protein 80 g carbohydrates with proteins first over 6 mini meal set. Resistance tubing upper and lower extremities with back and knee precautions. Walking program for strengthening x-rays of the knees and lumbar spine and chest. Pulmonary functions to further evaluate the dyspnea make sure she does not have any interstitial lung disease or scar from previous radiation exposure. We will set her up to get a sleep study also give her some redirection techniques for reward eating. We will look at other medications that may help with reward once the moods are better check. Added some Zoloft along with continuing the Wellbutrin for volume controls. Continue the Topamax for volume control also help with migraine prophylaxis and negative feedback for carbonated beverages. We will get [facility] [employer] Cardight testing for evaluation for pharmacodynamic options if she feels the Zoloft. Look towards Qsymia as a potential option in the future to consolidate some of her medications to help with volume control. She may be a reasonable candidate for GLP-1 agonist as well in the future recheck 2 weeks after lab assessments complete evaluate for malabsorption's and nutrient deficiencies. This note was partially created using voice recognition software and is inherently subject to errors including those of syntax and sound-alike substitutions which may escape proofreading. In such instances, original meaning may be extrapolated by contextual derivation Review of Systems - see the sheet Diet and exercise history reviewed in detail please see the sheet The following portions of the patient's history were reviewed and updated as appropriate: allergies, current medications, past family history, past medical history, past social history, past surgical history and problem list See the sheet. Review of Systems Constitutional: Positive for activity change, appetite change, fatigue and unexpected weight change. Negative for chills, diaphoresis and fever. HENT: Negative for congestion, ear pain, facial swelling, postnasal drip, rhinorrhea, sinus pressure, sinus pain, sneezing, sore throat, tinnitus, trouble swallowing and voice change. Eyes: Negative for photophobia, pain, redness, itching and visual disturbance. Respiratory: Negative for apnea, cough, choking, chest tightness, shortness of breath and wheezing. Cardiovascular: Negative for chest pain, palpitations and leg swelling. Gastrointestinal: Negative for abdominal distention, abdominal pain, blood in stool, constipation, diarrhea, nausea and vomiting. Endocrine: Negative for cold intolerance, heat intolerance, polydipsia and polyuria. Genitourinary: Negative for difficulty urinating, dysuria, enuresis, frequency, hematuria and urgency. Musculoskeletal: Negative for arthralgias, back pain, gait problem, joint swelling, myalgias and neck pain. Skin: Negative for color change and rash. Allergic/Immunologic: Negative for food allergies. Neurological: Negative for dizziness, tremors, syncope, speech difficulty, light-headedness, numbness and headaches. Hematological: Negative for adenopathy. Does not bruise/bleed easily. Psychiatric/Behavioral: Positive for sleep disturbance. Negative for agitation, confusion, decreased concentration, dysphoric mood and suicidal ideas. The patient is not nervous/anxious and is not hyperactive. Past Medical History: Diagnosis Date Anxiety Asthma Depression Disease of thyroid gland hypothyroid Hodgkin's lymphoma (HCC) 09/2011 Lymphoma, Hodgkin's (HCC) Preeclampsia previous Social History Socioeconomic History Marital status: Spouse name: Not on file Number of children: Not on file Years of education: Not on file Highest education level: Not on file Occupational History Not on file Tobacco Use Smoking status: Never Smoker Smokeless tobacco: Never Used Vaping Use Vaping Use: Never used Substance and Sexual Activity Alcohol use: Yes Drug use: Never Sexual activity: Yes Partners: Male Other Topics Concern Not on file Social History Narrative Not on file Social Determinants of Health Financial Resource Strain: Difficulty of Paying Living Expenses: Not on file Food Insecurity: Worried About Running Out of Food in the Last Year: Not on file Ran Out of Food in the Last Year: Not on file Transportation Needs: Lack of Transportation (Medical): Not on file Lack of Transportation (Non-Medical): Not on file Physical Activity: Days of Exercise per Week: Not on file Minutes of Exercise per Session: Not on file Stress: Feeling of Stress : Not on file Social Connections: Frequency of Communication with Friends and Family: Not on file Frequency of Social Gatherings with Friends and Family: Not on file Attends [employer] Services: Not on file Active Member of Clubs or Organizations: Not on file Attends Club or Organization Meetings: Not on file Marital Status: Not on file Housing Stability: Unable to Pay for Housing in the Last Year: Not on file Number of Places Lived in the Last Year: Not on file Unstable Housing in the Last Year: Not on file Current Outpatient Medications Medication Sig Dispense Refill buPROPion (WELLBUTRIN XL) 300 MG 24 hr tablet Take 1 (one) tablet (300 mg total) by mouth daily . 30 tablet 11 levothyroxine (SYNTHROID, LEVOTHROID) 200 MCG tablet Take 1 (one) tablet (200 mcg total) by mouth once daily . 90 tablet 1 busPIRone (BUSPAR) 5 MG tablet Take 1 (one) tablet (5 mg total) by mouth 3 (three) times a day . (Patient not taking: Reported on 04/14/2021 .) 90 tablet 1 FLUoxetine (PROZAC) 40 MG capsule Take 1 (one) capsule (40 mg total) by mouth daily . 90 capsule 0 sertraline (ZOLOFT) 25 MG tablet Take 1 (one) tablet (25 mg total) by mouth nightly . 30 tablet 1 SUMAtriptan (IMITREX) 50 MG tablet Take 1 (one) tablet (50 mg total) by mouth every 2 (two) hours as needed for migraine Max of 200 mg in 24hrs . 10 tablet 1 topiramate (TOPAMAX) 25 MG tablet Take 1 (one) tablet (25 mg total) by mouth 2 (two) times a day . 60 tablet 1 topiramate (TOPAMAX) 50 MG tablet Take 1 (one) tablet (50 mg total) by mouth 2 (two) times a day . 60 tablet 1 No current facility-administered medications for this visit. BP 112/77 Pulse 88 Ht 5' 6 (1.676 m) Wt 134.8 kg (297 lb 3.2 oz) SpO2 98% BMI 47.97 kg/m Physical Exam Vitals and nursing note reviewed. Constitutional: General: She is not in acute distress. Appearance: She is well-developed. She is not diaphoretic. HENT: Head: Normocephalic and atraumatic. Comments: mallampati 4 Right Ear: External ear normal. No drainage, swelling or tenderness. Tympanic membrane is not injected, perforated, erythematous or bulging. Left Ear: External ear normal. No drainage, swelling or tenderness. Tympanic membrane is not injected, perforated, erythematous or bulging. Nose: Nose normal. No mucosal edema or rhinorrhea. Mouth/Throat: Pharynx: No oropharyngeal exudate or posterior oropharyngeal erythema. Tonsils: No tonsillar abscesses. Eyes: General: Lids are normal. No scleral icterus. Right eye: No discharge. Left eye: No discharge. Conjunctiva/sclera: Conjunctivae normal. Pupils: Pupils are equal, round, and reactive to light. Neck: Thyroid: No thyroid mass or thyromegaly. Vascular: No carotid bruit or JVD. Trachea: No tracheal deviation. Cardiovascular: Rate and Rhythm: Normal rate and regular rhythm. Pulses: Normal pulses. Carotid pulses are 2+ on the right side and 2+ on the left side. Radial pulses are 2+ on the right side and 2+ on the left side. Femoral pulses are 2+ on the right side and 2+ on the left side. Dorsalis pedis pulses are 2+ on the right side and 2+ on the left side. Posterior tibial pulses are 2+ on the right side and 2+ on the left side. Heart sounds: Normal heart sounds, S1 normal and S2 normal. No murmur heard. No friction rub. No gallop. No S3 or S4 sounds. Pulmonary: Effort: Pulmonary effort is normal. No respiratory distress. Breath sounds: Normal breath sounds. No wheezing or rales. Abdominal: General: Bowel sounds are normal. There is distension. Palpations: Abdomen is soft. There is hepatomegaly. There is no mass. Tenderness: There is no abdominal tenderness. There is no guarding or rebound. Hernia: No hernia is present. Musculoskeletal: General: No tenderness. Normal range of motion. Cervical back: Normal range of motion and neck supple. No spinous process tenderness or muscular tenderness. Lumbar back: Bony tenderness present. No swelling, deformity or spasms. Right knee: Crepitus present. Left knee: Crepitus present. Right lower leg: Edema present. Left lower leg: Edema present. Lymphadenopathy: Head: Right side of head: No submental, submandibular, preauricular, posterior auricular or occipital adenopathy. Left side of head: No submental, submandibular, preauricular, posterior auricular or occipital adenopathy. Cervical: No cervical adenopathy. Skin: General: Skin is warm and dry. Findings: No erythema, petechiae or rash. Neurological: Mental Status: She is alert and oriented to person, place, and time. Cranial Nerves: No cranial nerve deficit. Sensory: No sensory deficit. Motor: No atrophy or abnormal muscle tone. Coordination: Coordination normal. Gait: Gait normal. Deep Tendon Reflexes: Reflexes normal. Reflex Scores: Bicep reflexes are 2+ on the right side and 2+ on the left side. Brachioradialis reflexes are 2+ on the right side and 2+ on the left side. Patellar reflexes are 2+ on the right side and 2+ on the left side. Psychiatric: Mood and Affect: Mood is depressed. Speech: Speech normal. Behavior: Behavior normal. Thought Content: Thought content normal. Judgment: Judgment normal. Problem List Items Addressed This Visit Endocrine Hypothyroidism Relevant Orders T3 T4, Free TSH Thyroid Antibody Group Cardiovascular and Mediastinum Migraine Relevant Medications topiramate (TOPAMAX) 50 MG tablet topiramate (TOPAMAX) 25 MG tablet Other Obesity, Class II, BMI 35-39.9 Relevant Medications topiramate (TOPAMAX) 50 MG tablet Atypical eating disorder Relevant Medications sertraline (ZOLOFT) 25 MG tablet Other Visit Diagnoses Weight gain - Primary Relevant Orders CBC and Differential Comprehensive Metabolic Panel Hemoglobin A1c Insulin, Total Fatigue, unspecified type Sleep disorder Relevant Orders Ambulatory referral to Sleep Medicine Depression, unspecified depression type Relevant Medications sertraline (ZOLOFT) 25 MG tablet Elevated LFTs Relevant Orders US Abdomen Limited Study Liver Fibrosis, Fibro Test Diarrhea, unspecified type Relevant Orders Fecal Fat, Quantitative Pancreatic Elastase, Fecal Celiac Serology [place] Panel Celiac Associated HLA_DQ Typing Dyspnea, unspecified type Relevant Orders Complete PFT with Pre and Post Bronchodilator volumes and dlco XR Chest AP/PA and LAT NT Pro BNP Chronic midline low back pain without sciatica Relevant Orders XR Lumbar Spine 2-3 Views (Standard) Chronic pain of both knees Relevant Orders XR Knees Bilateral WB OA 3 Views Intestinal malabsorption, unspecified type Relevant Orders Ferritin Folate Iron and TIBC Lipoprotein NMR Magnesium Level Uric Acid Vitamin B12 Vitamin B6 Vitamin D, Total, 25-OH Vitamin B1, Whole Blood BMI 45.0-49.9, adult (HCC) Relevant Orders Ambulatory referral to Nutrition Services Exposure to COVID-19 virus Relevant Orders COVID-19, Molecular Return in about 2 weeks (around 04/28/2021) for Recheck. Diet Discussed 1600 ronny 160g protein 80g carb protein first consider low FODMAPS later Exercise Prescription Discussedresistance tubing upper and lower and walking program and written personalized exercise regimen provided to patient at visit with appropriate modifications as warranted Counselor/Therapist Refer tofor coping mechanisms with reward eating Behavioral Lifestyle [id number] and jaden without calories and genesight for antidepressants and 478 for sleep and sleep study and changes to eating patterns and macronutrient composition as well as activity levels discussed in detail Medicationszoloft for depression and topamax for migraine prophylaxis and volume control and consider glp-1 therapy Side Effects Discussed in detail Counseling Time: 60 minutes more than 50% of the time face to face discussing findings and coordinating care RE:diet exercise and meds Diet: What do you usually have to eat for the following meals: Breakfast cereal or eggs or bagel Lunch pizza or fish, veggie or fast food Dinner meat, veggie/salad or tacos Number of snacks per day: 1-2 - popcorn, veggies, fruit Frequency of skipping meals per day if any: sometimes breakfast If you are tracking; how many calories are you getting and how many grams of protein and carbohydrate are getting a day? Not currently What do you usually drink? Water, Tea, Pop, body armour Do you drink alcohol? rarely Physical Activity What are you currently doing as activity or exercise? Taking care of toddler, housework How many times per week? How long at each session? Any limitations you are currently having affecting your activity or exercise? Appetite: Is your appetite well controlled at this time? Varies - craves sweets during cycle Energy levels: Are your energy levels fairly good at this time? Yes or No Quality of Sleep: Are you sleeping well at this time? Yes or No How many hours of sleep per night? 4-5 Do you feel rested when you wake up in the morning? Yes or No Do you have sleep apnea and if you do are you currently treated? Never tested, but snores Level of Stress: What is the level of stress in your life currently?- scale 1 to 10, 10 being the most stressed. 8 How is your general mood? Anxious & depressed documented [facility] History of Present illness Narrative Impression: 1. Gastrocnemius tear, right, initial encounter The above diagnosis as well as the options for treatment were discussed with Aurora in clinic today. This patient has physical exam findings consistent with a medial head gastrocnemius tear. We have placed this patient in a boot. She will be enrolled in physical therapy. I had like to see her back after completion of physical therapy. If she has any worsening I told her to get back in touch with us. Additional imaging could be performed in the form of an MRI if necessary. Aurora Mendez was agreeable to the plan and there were no learning barriers encountered. Follow-Up: After completing physical therapy Subjective: Aurora Mendez is a 35 y.o. female seen as a new patient for Right lower leg injury. She says that she injured her right leg and calf on 2021-03-18. She was walking from her car towards a restaurant. She felt a popping and pulling sensation. Then she felt swelling and warmth the next day. She was unable to fully weight-bear. She had difficulty walking. She also had symptoms of aching and pulling in the posterior aspect of her calf. She went to the emergency department on 2021-03-18. She was evaluated. X-rays were performed. No fracture was identified. An ultrasound was also performed. No thrombosis was identified. She was diagnosed with a possible gastrocnemius tear. She was placed in a knee immobilizer. She has not been wearing it as it has been difficult to wear. She is taking [id number] medication for pain. She has children at home. 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 She is not a smoker. She is not a diabetic.. She has a history of Hodgkin's lymphoma as well as preeclampsia Past Medical History: Diagnosis Date Anxiety Asthma Depression Disease of thyroid gland hypothyroid Hodgkin's lymphoma (HCC) 09/2011 Lymphoma, Hodgkin's (HCC) Preeclampsia previous and Past Surgical History: Procedure Laterality Date SECTION, LOW TRANSVERSE Two prior CHEMOTHERAPY Hodgkins Lymphoma CHOLECYSTECTOMY RADIATION chest for Hodgkins Lyphoma TONSILLECTOMY AND ADENOIDECTOMY Past medical, past surgical, family history, medications, allergies, and smoking status reviewed and updated as appropriate in [facility]. A 10-system review of systems was completed by Aurora bo and reviewed by Dr. Alejandra Ying during the visit. This has been initialed, dated, and scanned to this encounter. Objective: Vitals: 03/24/21 1449 BP: 125/84 Pulse: (!) 101 Weight: 118.8 kg (262 lb) Height: 5' 5 General: no acute distress Appearance: Appears stated age Neurologic: Patient is alert and oriented x3 pleasant and cooperative. Mood and affect: Normal HEENT: normocephalic, attraumatic. Extraocular muscles grossly normal. Pulm: respiratory effort is normal Foot and Ankle - Physical Exam Standing: Not performed due to the nature of the injury. Deformities: None Palpation: Tenderness to palpation over the medial head of the gastroc ROM Ankle: normal Knee: Decreased Muscle/Tendons Strength + EHL/FHL motor intact Pulses Dorsal Pedis: Present 2+ Tibial Artery: Present 2+ Nerves Tibial Nerve Lateral Plantar: intact Medial Plantar: intact Superficial Peroneal: intact Deep Peroneal: intact Sural: intact Saphenous: intact Skin Intact Radiographs: Xrays from 2021-03-18 were reviewed today in clinic and discussed with the patient. A formal read will be perfomed by radiology. They were also interpreted by myself. My findings and impressions can be found below. Radiographs of the right tib-fib from 2021-03-19 show no acute fractures or dislocations. No significant abnormalities. No degenerative changes at the knee or the ankle. Soft tissue swelling is present. CC: Evi Pacheco MD [facility] Diagnosis Anxiety and [facility] Gastrocnemius tear, right, initial encounter- Primary [facility] Diagnosis BMI 45.0-49.9, adult (HCC) [facility] Diagnosis Weight gain- Primary Other symptoms concerning nutrition, metabolism, and development Obesity, Class II, BMI 35-39.9 Atypical eating disorder Other specified hypothyroidism Fatigue, unspecified type Sleep disorder Unspecified sleep disturbance Migraine with aura and without status migrainosus, not intractable Depression, unspecified depression type Elevated LFTs Other abnormal blood chemistry Diarrhea, unspecified type Dyspnea, unspecified type Chronic midline low back pain without sciatica Chronic pain of both knees Intestinal malabsorption, unspecified type BMI 45.0-49.9, adult ([facility]) Exposure to COVID-19 virus [facility] Diagnosis Atypical eating disorder- Primary Vitamin D deficiency Vitamin B6 deficiency Iron deficiency Disorders of iron metabolism Hypothyroidism (acquired) Unspecified hypothyroidism Other specified hypothyroidism Obesity, Class III, BMI 40-49.9 (morbid obesity) ([facility]) BMI 45.0-49.9, adult ([facility]) Lumbar radiculopathy Thoracic or lumbosacral neuritis or radiculitis, unspecified Patellofemoral stress syndrome, unspecified laterality Fatty liver Other chronic nonalcoholic liver disease Encounter for screening examination for impaired glucose regulation and diabetes mellitus [facility] Diagnosis Atypical eating disorder- Primary Lumbar radiculopathy Thoracic or lumbosacral neuritis or radiculitis, unspecified Vitamin D deficiency Vitamin B6 deficiency Mild intermittent asthma, unspecified whether complicated Obesity, Class II, BMI 35-39.9 Other specified hypothyroidism Depression, unspecified depression type BMI 45.0-49.9, adult ([facility]) [facility] Diagnosis Cough- Primary Anxiety and depression [facility] Diagnosis Cough- Primary Anxiety and depression [facility] Diagnosis Screening for viral disease- Primary Special screening examination for unspecified viral disease [facility] Diagnosis Atypical eating disorder- Primary Insulin resistance Other abnormal glucose Vitamin D deficiency Vitamin B6 deficiency Lumbar radiculopathy Thoracic or lumbosacral neuritis or radiculitis, unspecified Obesity, Class II, BMI 35-39.9 Depression, unspecified depression type Obesity, Class III, BMI 40-49.9 (morbid obesity) ([facility]) BMI 45.0-49.9, adult ([facility]) [facility] Diagnosis Atypical eating disorder- Primary Insulin resistance Other abnormal glucose Vitamin D deficiency Vitamin B6 deficiency Obesity, Class III, BMI 40-49.9 (morbid obesity) (HCC) BMI 45.0-49.9, adult (HCC) [facility] Diagnosis Internal hemorrhoids- Primary Internal hemorrhoids without mention of complication Rectal bleeding Hemorrhage of rectum and anus [facility] Diagnosis Atypical eating disorder- Primary Insulin resistance Other abnormal glucose Vitamin D deficiency Vitamin B6 deficiency Obesity, morbid, BMI 50 or higher (HCC) BMI 50.0-59.9, adult ([facility]) Encounter for pre-bariatric surgery counseling and education [facility] Diagnosis Atypical eating disorder- Primary Insulin resistance Other abnormal glucose Vitamin D deficiency Vitamin B6 deficiency Encounter for pre-bariatric surgery counseling and education Obesity, morbid, BMI 50 or higher (HCC) BMI 50.0-59.9, adult ([facility]) Iron deficiency Disorders of iron metabolism Hypothyroidism (acquired) Unspecified hypothyroidism [facility] Diagnosis Atypical eating disorder- Primary Vitamin D deficiency Insulin resistance Other abnormal glucose Vitamin B6 deficiency Encounter for pre-bariatric surgery counseling and education Iron deficiency Disorders of iron metabolism Obesity, morbid, BMI 50 or higher (HCC) BMI 50.0-59.9, adult ([facility]) [facility] Diagnosis Anxiety and depression Vitamin D deficiency Obesity, Class III, BMI 40-49.9 (morbid obesity) ([facility]) [facility] Diagnosis Atypical eating disorder- Primary Insulin resistance Other abnormal glucose Obesity, morbid, BMI 50 or higher (HCC) BMI 50.0-59.9, adult ([facility]) Vitamin D deficiency Vitamin B6 deficiency Iron deficiency Disorders of iron metabolism Other specified hypothyroidism Depression, unspecified depression type [facility] Diagnosis Obesity, morbid, BMI 50 or higher (HCC) [facility] Diagnosis Atypical eating disorder- Primary Insulin resistance Other abnormal glucose Obesity, morbid, BMI 50 or higher (HCC) Obesity, Class III, BMI 40-49.9 (morbid obesity) (HCC) BMI 45.0-49.9, adult ([facility]) Vitamin D deficiency Vitamin B6 deficiency Iron deficiency Disorders of iron metabolism Hypothyroidism (acquired) Unspecified hypothyroidism Leg swelling Swelling of limb [facility] Diagnosis Atypical eating disorder- Primary Insulin resistance Other abnormal glucose Obesity, Class III, BMI 40-49.9 (morbid obesity) ([facility]) BMI 45.0-49.9, adult ([facility]) Vitamin D deficiency Vitamin B6 deficiency Iron deficiency Disorders of iron metabolism Hypothyroidism (acquired) Unspecified hypothyroidism [facility] Diagnosis Atypical eating disorder- Primary Insulin resistance Other abnormal glucose Obesity, Class III, BMI 40-49.9 (morbid obesity) ([facility]) BMI 40.0-44.9, adult ([facility]) Vitamin D deficiency Vitamin B6 deficiency Iron deficiency Disorders of iron metabolism Hypothyroidism (acquired) Unspecified hypothyroidism [facility] Diagnosis Metabolic syndrome- Primary Dysmetabolic Syndrome X [facility] Diagnosis Atypical eating disorder- Primary Insulin resistance Other abnormal glucose Obesity, Class III, BMI 40-49.9 (morbid obesity) ([facility]) BMI 40.0-44.9, adult ([facility]) Vitamin D deficiency Vitamin B6 deficiency Iron deficiency Disorders of iron metabolism Hypothyroidism (acquired) Unspecified hypothyroidism Metabolic syndrome Dysmetabolic Syndrome X [facility] Diagnosis Hypothyroidism (acquired)- Primary Unspecified hypothyroidism [facility] Diagnosis Atypical eating disorder- Primary Insulin resistance Other abnormal glucose Obesity, Class III, BMI 40-49.9 (morbid obesity) ([facility]) BMI 40.0-44.9, adult ([facility]) Vitamin D deficiency Vitamin B6 deficiency Iron deficiency Disorders of iron metabolism Hypothyroidism (acquired) Unspecified hypothyroidism [facility] Diagnosis Atypical eating disorder- Primary Insulin resistance Other abnormal glucose Obesity, Class II, BMI 35-39.9 BMI 38.0-38.9,adult Vitamin D deficiency Vitamin B6 deficiency Iron deficiency Disorders of iron metabolism Hypothyroidism (acquired) Unspecified hypothyroidism [facility] Diagnosis Atypical eating disorder- Primary Insulin resistance Other abnormal glucose Obesity, Class II, BMI 35-39.9 BMI 36.0-36.9,adult Depression, unspecified depression type Vitamin D deficiency Vitamin B6 deficiency Iron deficiency Disorders of iron metabolism Hypothyroidism (acquired) Unspecified hypothyroidism [facility] Diagnosis Atypical eating disorder- Primary Insulin resistance Other abnormal glucose Obesity, Class I, BMI 30-34.9 BMI 34.0-34.9,adult Depression, unspecified depression type Vitamin D deficiency Vitamin B6 deficiency Iron deficiency Disorders of iron metabolism Hypothyroidism (acquired) Unspecified [facility] Vitamin D [facility] Diagnosis Hypothyroidism (acquired)- Primary Unspecified hypothyroidism [facility] Diagnosis Atypical eating disorder- Primary Insulin resistance Other abnormal glucose Overweight (BMI 25.0-29.9) Overweight BMI 29.0-29.9,adult Vitamin D deficiency Vitamin B6 deficiency Iron deficiency Disorders of iron metabolism Depression, unspecified depression type Hypothyroidism (acquired) Unspecified hypothyroidism [facility] Diagnosis Insulin resistance Other abnormal glucose Vitamin D deficiency [facility] Diagnosis Atypical eating disorder- Primary Insulin resistance Other abnormal glucose Overweight (BMI 25.0-29.9) Overweight BMI 28.0-28.9,adult Vitamin D deficiency Vitamin B6 deficiency Iron deficiency Disorders of iron metabolism Hypothyroidism (acquired) Unspecified hypothyroidism Depression, unspecified depression type Fatigue, unspecified type [facility] Diagnosis Atypical eating disorder- Primary Insulin resistance Other abnormal glucose Overweight (BMI 25.0-29.9) Overweight BMI 28.0-28.9,adult Vitamin D deficiency Vitamin B6 deficiency Iron deficiency Disorders of iron metabolism Hypothyroidism (acquired) Unspecified hypothyroidism [facility] Diagnosis Atypical eating disorder- Primary Insulin resistance Other abnormal glucose Overweight (BMI 25.0-29.9) Overweight BMI 27.0-27.9,adult Vitamin D deficiency Vitamin B6 deficiency Iron deficiency Disorders of iron metabolism Hypothyroidism (acquired) Unspecified hypothyroidism Depression, unspecified depression type [facility] Diagnosis Atypical eating disorder- Primary Insulin resistance Other abnormal glucose Overweight (BMI 25.0-29.9) Overweight BMI 27.0-27.9,adult Vitamin D deficiency Vitamin B6 deficiency Iron deficiency Disorders of iron metabolism [facility] Diagnosis Insulin resistance Other abnormal glucose [facility] Diagnosis Insulin resistance Other abnormal glucose [facility] Diagnosis Insulin resistance- Primary Other abnormal glucose [facility] Diagnosis Atypical eating disorder- Primary Insulin resistance Other abnormal glucose Obesity, Class I, BMI 30-34.9 BMI 32.0-32.9,adult Vitamin D deficiency Vitamin B6 deficiency Iron deficiency Disorders of iron metabolism Hypothyroidism (acquired) Unspecified hypothyroidism Constipation, unspecified constipation type [facility] Purpose Family History No Family History Records FoundNo Family History Records FoundNo Family History Records FoundNo Family History Records FoundNo Family History Records FoundNo Family History Records FoundNo Family History Records FoundNo Family History Records FoundNo Family History Records FoundNo Family History Records FoundNo Family History Records FoundNo Family History Records Found Advance Directives No Advanced Directives Records FoundDocuments on File Type Date Recorded 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 Expl 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 Advance Directives and Livin g Will 11/10/2018 8:02 AM Documents on File Type Date Recorded 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 Expl anation Advance Directives and Livin g Will 08/23/2019 12:08 PM Documents on File Type Date Recorded 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 Expl anation Advance Directives and Livin g Will 08/23/2019 12:08 PM Documents on File Type Date Recorded 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 Expl anation Advance Directives and Livin g Will 08/31/2019 1:21 PM Documents on File Type Date Recorded 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 Expl anation Advance Directives and Livin g Will 08/31/2019 1:21 PM Documents on File Type Date Recorded 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 Expl anation Advance Directives and Livin g Will 03/18/2021 10:09 PM Documents on File Type Date Recorded 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 Expl anation Advance Directives and Livin g Will 03/18/2021 10:09 PM Documents on File Type Date Recorded 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 Expl anation Advance Directives and Livin g Will 04/25/2021 9:49 AM Documents on File Type Date Recorded 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 Pt. Is engaged in ongoing weekly visits for weight checks of Jarrettkt Villarreal 03/14/19. Engaged and receptive to home education/child weight monitoring. documented in this encounter* Rochelle Martinez LPC - 08/24/2019 10:49 AM EST [facility] met with Aurora for initial face to face visit. After reviewing and discussing the patient's PHQ-9 score(s), the patient does agree to meet with the Behavioral Health Professional. Also present 5month old Erika. Behavioral Health Screenings: HILARY-7 08/24/2019 08/24/2019 HILARY-7 Score 19 19 PHQ-9 04/10/2019 PHQ-9 Total Score 3 Aurora is reporting an increase in overall anxiety and worry stemming from infidelities in her relationship. She is reporting that she has been with the father of her 5 month old baby for a year and a half. She reports that she thought her child was his 4th child and has since found out that she ishis 10th child. She reports that she constantly worries about what he is doing or who he is with. She has caught him on dating apps and texting apps multiple times. He reports he cheated on her physically as recently as a few weeks ago and came home and was trying to get with her as well. She reports that she also suffers from high levels of irritability and anger. She will get upset at her 9 year old and then have to go back and apologize. Her sleep is off and she stays up worrying about her partner and where he is. She reports that he still goes out and parties all the time and she is more of a homebody. 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 She reports it is a good job which allows her to have some flexibility. She also admits to wanting to antique auto museum maintenance worker so she can see what her partner is doing during the day. Family history: Mother has anxiety. Father also unfaithful to mother over whole marriage and currently unfaithful to mother. She reports her sister used to be a support but is not as much recently. Medication history: Tried and failed Viibryd, citalopram (Celexa), bupropion (Wellbutrin), and is currently trying venlafaxine (Effexor) 37.5 tablets to see if helpful. Today, [facility] educated patient on anxiety and techniques to reduce anxiety. Educated on the link between thyroid and anxiety as well and to ensure she is compliant with that treatment. Education on the importance of breathing, meditation, mindfulness and relaxation exercises. Educated on the signs and symptoms of post anxiety and encouraged to continue with /mutli and healthy eating. Educated on the importance of taking venlafaxine (Effexor) at same time every day especially since it is the tablet form. Gave resources for apps to use such as [employer] and [employer] timer. Asked patient to do at least 5 minutes a day to reduce anxiety. Since the relationships is clearly causing most of her distress, we talked about healthy relationships and boundaries. [facility] engaged in self-esteem building with patient as well as encouraging that she might think about taking some time away from the relationship if she wants to work on her mental health. She agrees and says that everyone tells her to leave, but it is hard. [facility] agreed to support her whatever decision she makes, but that [facility] will be continuing to assess for her mental health and her safety. She agreed to f/u with [facility] in one week, phone call, and will see about scheduling a f/u appointment face to face at that time. documented in this encounter* Evi Pacheco MD - 08/24/2019 8:38 AM EST Aurora Mendez is a 34 y.o. female Assessment/Plan: Problem List Items Addressed This Visit Endocrine Hypothyroidism -Acquired after radiation. Her TSH has been difficult to control. We will repeat labs today. If elevated will increase her Synthroid. We will also refer her to endocrinology. Currently on 200 MCG's will increase it to 225. Relevant Medications levothyroxine (SYNTHROID, LEVOTHROID) 200 MCG tablet Other Relevant Orders TSH (Completed) T4, Free (Completed) Immune and Lymphatic Lymphadenopathy -She is noted to have right-sided lymphadenopathy today. She does have a history of non-Hodgkin's and from a status post radiation and chemo. She also has a history of breast cyst that have been evaluated in the past with mammograms. This time I will refer her to our breast center for diagnostic mammogram and possible ultrasound on the right side. Relevant Orders Mammography Diagnostic Right US Breast Right Complete Other Leg swelling -This is a chronic problem but the left leg is slightly larger. We will check for DVT. We will recheck thyroid levels. With no SOB or chest pain, will hold off on any cardiac work up at this time. Relevant Orders Ultrasound duplex venous leg left Anxiety and depression - Primary -This is a chronic problem, currently uncontrolled. Her HILARY score was 19. This is exacerbated in the setting of trust issues with her spouse. Also suspect that her thyroid may be off in the setting of weight gain. She has been on Effexor in the past I think this is a good medication for her and will restart at this time. We discussed using BuSpar as needed if we need to add another medication. I did refer her at this time to [employer] certified network professional. Being that most of her anxiety is situational she would benefit from discussing coping mechanisms and improving her thoughts about herself. Relevant Medications venlafaxine (EFFEXOR) 37.5 MG tablet Other Relevant Orders Ambulatory Ref to [facility] Return in about 6 weeks (around 10/05/2019) for Mood, thyroid and leg swelling f/u. Aurora Sanchez Isra is a 34 y.o. female who presents for Chief Complaint Patient presents with Anxiety HILARY 7 Breast Pain right breast Edema HPI She presents today with weight gain and swelling. She has a h/o hypothyroidism but she hasn't felt any symptoms. She is not sleeping well. She has been more anxious and her mind is always racing. She feels like she is not doing enough. She worries about her relationship and wether she is good enough. She feels more short tempered and irritable. She does most of the household work and her spouse doesn't help her. She has tried mediation but with certain situations she is back to being frustrated. LMP: 1 week ago. H/o tubal ligation Right arm pain: Having swelling underneath her arm. Has a h/o chemo radiation, for hodgkin lymphoma. Now having this swelling and tenderness. She has had diagnostic mammograms in the past, she was suppose to f/u jerardo 6 months with imaging but she has been pregnanct and no longer was seen. Patient Active Problem List Diagnosis Hodgkin's disease (HCC) Obesity, Class II, BMI 35-39.9 Tenosynovitis of right wrist Hypothyroidism Lymphadenopathy Leg swelling Anxiety and depression Past Surgical History: Procedure Laterality Date SECTION, LOW TRANSVERSE Two prior CHOLECYSTECTOMY TONSILLECTOMY AND ADENOIDECTOMY Family History Problem Relation Age of Onset Depression Mother Hypothyroidism Mother Diabetes Father Depression Father Chiari malformation Father Alcohol abuse Maternal Grandfather Colon cancer Maternal Grandfather Diabetes Paternal Grandmother Colon cancer Paternal Grandmother Social History Tobacco Use Smoking status: Never Smoker Smokeless tobacco: Never Used Substance Use Topics Alcohol use: Never Frequency: Never Drug use: Never Current Outpatient Medications Medication Sig Dispense Refill acetaminophen (TYLENOL) 325 MG tablet Take 650 mg by mouth every 6 (six) hours as needed for pain . arm brace Misc Wear the brace every daily. . 1 each 0 clotrimazole-betamethasone (LOTRISONE) cream Apply topically 2 (two) times a day . 45 g 1 ibuprofen (ADVIL,MOTRIN) 800 MG tablet Take 800 mg by mouth every 6 (six) hours as needed for pain . levothyroxine (SYNTHROID, LEVOTHROID) 25 MCG tablet Take 25 mcg by mouth daily . 3 prenat.vits,ronny,dty-byvp-mvexu Tab Take by mouth . aspirin 81 MG EC tablet Take 81 mg by mouth daily . docusate sodium (COLACE) 100 MG capsule Take 100 mg by mouth 2 (two) times a day . levothyroxine (SYNTHROID, LEVOTHROID) 200 MCG tablet Take 1 (one) tablet (200 mcg total) by mouth once daily . 30 tablet 2 venlafaxine (EFFEXOR) 37.5 MG tablet Take 1 (one) tablet (37.5 mg total) by mouth 2 (two) times a day . 60 tablet 1 No current facility-administered medications for this visit. Review of Systems Constitutional: Positive for fatigue and unexpected weight change. Negative for appetite change, chills, diaphoresis and fever. Respiratory: Negative for cough and shortness of breath. Cardiovascular: Positive for leg swelling. Negative for chest pain and palpitations. Gastrointestinal: Negative for abdominal pain, nausea and vomiting. Endocrine: Negative for cold intolerance and heat intolerance. Genitourinary: Negative for dysuria. Musculoskeletal: Negative for back pain. Skin: Negative for rash and wound. Neurological: Negative for dizziness, weakness, light-headedness, numbness and headaches. Psychiatric/Behavioral: Positive for decreased concentration and sleep disturbance. Negative for confusion and suicidal ideas. The patient is nervous/anxious. Physical Exam: BP 116/78 (BP Location: Left arm, Patient Position: Sitting, BP Cuff Size: X- large Adult) Pulse (!) 102 Temp 98 F (36.7 C) (Temporal) Resp 18 Ht 5' 6 Wt 121.6 kg (268 lb) LMP 08/17/2019 SpO2 95% BMI 43.26 kg/m Wt Readings from Last 3 Encounters: 08/24/19 121.6 kg (268 lb) 04/10/19 110.9 kg (244 lb 9.6 oz) 01/17/19 115.2 kg (254 lb) BP Readings from Last 3 Encounters: 08/24/19 116/78 04/10/19 103/72 01/17/19 121/80 Physical Exam Vitals signs reviewed. Constitutional: General: She is not in acute distress. Appearance: She is well-developed. She is obese. She is not diaphoretic. Eyes: Conjunctiva/sclera: Conjunctivae normal. Pupils: Pupils are equal, round, and reactive to light. Neck: Musculoskeletal: Normal range of motion. Cardiovascular: Rate and Rhythm: Normal rate and regular rhythm. Heart sounds: Normal heart sounds. No murmur. Pulmonary: Effort: Pulmonary effort is normal. No respiratory distress. Breath sounds: Normal breath sounds. Chest: Breasts: Right: Normal. No mass. Musculoskeletal: Right lower leg: Edema present. Left lower leg: Edema present. Comments: Bilateral leg swelling left greater than right. Nonpitting. No erythema or warmth. Lymphadenopathy: Cervical: No cervical adenopathy. Upper Body: Right upper body: Axillary adenopathy and pectoral adenopathy present. No supraclavicular adenopathy. Left upper body: No supraclavicular, axillary or pectoral adenopathy. Skin: Capillary Refill: Capillary refill takes less than 2 seconds. Psychiatric: Mood and Affect: Mood is anxious. Affect is tearful. Speech: Speech normal. Behavior: Behavior normal. Behavior is cooperative. For any new medications prescribed today, patient was educated about indications for the medication, how to take the medication and potential side effects of the medications. documented in this encounter* Rochelle Martinez LPC - 09/03/2019 10:11 AM EST [facility] called to check up on Aurora to see how she has been doing this past week .P asked for a return call back and provided direct line documented in this encounter* Rochelle Martinez LPC - 09/11/2019 4:02 PM EST [facility] called to check up on Aurora. [facility] left message for call back. Second attempt documented in this encounter* Rochelle Martinez LPC - 09/14/2019 12:49 PM EST Problem List: Depression (PP) Anxiety Insomnia Chronic Health Issues Interventions: Venlafaxine (Effexor) CBT Skills, including cognitive Reframing DBT Techniques Motivational Interviewing Person Centered Therapy Goal Setting Mindfulness Based Practices Clinical Tapping (EFT) * Leela Braxton MA - 09/11/2019 3:45 PM EST Charge pending for Behavioral Health Program, initial month (August). Number of minutes 46 See separate P note for treatment specifics. Please review and sign visit. documented in this encounter* Rochelle Martinez LPC - 09/18/2019 8:49 AM EST [facility] called to check up on Aurora and see how she is going, left message asking for a call back. Third and final attempt. Happy to help in the future if patient re-engages. documented in this encounter* Tasha Anderson MD - 09/06/2019 2:34 PM EST Patient discussed in [facility] conference. 34 year old with a new baby and a very problematic relationship with the baby's father. Agree with the plan of supportive and CBT therapy She will need a dose of at least 75 mg of Effexor for therapeutic response. documented in this encounter* Rochelle Martinez LPC - 10/02/2019 3:44 PM EST A user error has taken place: encounter opened in error, closed for administrative reasons. documented in this encounter* Rochelle Martinez LPC - 12/05/2019 9:33 AM EDT [facility] called to check up on Aurora, mailbox full and cannot accept any messages. First attempt documented in this encounter* Rochelle Martinez LPC - 10/26/2019 10:23 AM EDT [facility] called to let patient know Tuesday at 8am we will have our normal session via phone due instead of in-person. Patient agreeable and phone number confirmed. documented in this encounter* Rochelle Martinez LPC - 10/29/2019 8:22 AM EDT Phone call session with patient due to Behavioral Health Screenings: IHLARY-7 08/24/2019 10/29/2019 HILARY-7 Score 19 18 PHQ-9 04/10/2019 10/29/2019 PHQ-9 Total Score 3 5 Aurora reports she is really struggling with being irritable, frustrated easily, yelling a lot and low libido. She is also gaining weight and binge eating. She reports she will yell at her kids and then apologize. Her baby is not sleeping through the night and partner won't get up with her even though she has to work. Baby is also teething again so she is especially fussy. She reports that her partner is seeing another woman, the mother of his other children. She is at the end of her rope. [facility] encouraged patient that she does deserve a relationship where there is fidelity and mutual respect. Aurora reports she needs to get to a point where she believes that too and she can leave him. Aurora reports her partner spent over 12 hours with the other woman yesterday and that was a breaking point. He is going to drug and alcohol treatment as well as counseling services. He promises things will change now. Coping skills: Today we talked about taking a break when irritability runs high and doing diaphragmatic breathing away from any noises. Educated on clinical tapping (EFT) and sheet will be sent through [employer]. Advised patient to start mag and info will be sent through [employer]. We talked about boundary setting with partner and how patient does not have any consequences right now for her partner'spoor behavior. She advised her consequence will be leaving him if he goes to see the other woman today. We talked through some ideas for childcare during this time. Patient opted not to schedule f/u agreeable to a phone call in the future. Dr. Pacheco: Pt reports venlafaxine (Effexor) not working well. Is getting more depressed and irritable. Is gaining weight. Is on the tablets 37.5 twice daily. Wondering about either an increase in dose utilizing the capsule formation or a change of medication. Patient also struggling with weight gain and low libido. Has been on bupropion (Wellbutrin) in the past and agreeable to try it again (it can help with low libido). Thoughts on a medication change? documented in this encounter* Evi Pacheco MD - 11/16/2019 10:39 AM EDT Aurora Mendez is a 34 y.o. female Assessment/Plan: Problem List Items Addressed This Visit Endocrine Hypothyroidism - Primary -Chronic, uncontrolled secondary nonadherence. reiterated the importance of taking medication on time reviewed with her tachycardia today and her increased weight gain. Continue at 225 MCG's. Will repeat labs in 4 weeks. Relevant Medications levothyroxine (SYNTHROID, LEVOTHROID) 200 MCG tablet levothyroxine (SYNTHROID, LEVOTHROID) 25 MCG tablet Other Leg swelling - improving, likely venous stasis in the setting of obesity and stationary job. We discussed getting up and moving more during the today as well as weight loss and use of compression hose Anxiety and depression - HILARY 7 score is 8, was 19 last visit. Did not tolerate Effexor, decision made to go back on Wellbutrin. Doing well and there is room for improvement so we will increase it to 100 mg twice a day. Relevant Medications buPROPion (WELLBUTRIN) 100 MG tablet Return in about 1 month (around 12/16/2019) for thyroid. Aurora Mendez is a 34 y.o. female who presents for Chief Complaint Patient presents with Mood Swings Thyroid Problem Leg Swelling HPI Mood: She feels like she is doing better but this continues to be a problem. She admits that is mostly her life stressors that are causing her to have these issues. She has increased irritability as well. Having issues with her significant other and his relationship with his girlfriend who are alsothe mother of his other children. They are however having better communication and trying to talk through things however he still is does things that make her easily frustrated and angry. She is however sleeping better and able to work throughout the day. Thyroid: She admits that she has been feeling take her medication. She knows that she has to take it but with the children at home has had a hard time remembering when to take it. She will try to technique by keeping it near her work desk and taking it as soon as she goes up from work. She notes that she does not take it with any food for at least an hour and only with water. She has been having notable weight gain, cold intolerance, fatigue and emotional liability Patient Active Problem List Diagnosis Hodgkin's disease (HCC) Obesity, Class II, BMI 35-39.9 Tenosynovitis of right wrist Hypothyroidism Leg swelling Anxiety and depression Past Surgical History: Procedure Laterality Date SECTION, LOW TRANSVERSE Two prior CHEMOTHERAPY Hodgkins Lymphoma CHOLECYSTECTOMY RADIATION chest for Hodgkins Lyphoma TONSILLECTOMY AND ADENOIDECTOMY Family History Problem Relation Age of Onset Depression Mother Hypothyroidism Mother Diabetes Father Depression Father Chiari malformation Father Alcohol abuse Maternal Grandfather Colon cancer Maternal Grandfather Diabetes Paternal Grandmother Colon cancer Paternal Grandmother Social History Tobacco Use Smoking status: Never Smoker Smokeless tobacco: Never Used Substance Use Topics Alcohol use: Never Frequency: Never Drug use: Never Current Outpatient Medications Medication Sig Dispense Refill acetaminophen (TYLENOL) 325 MG tablet Take 650 mg by mouth every 6 (six) hours as needed for pain . buPROPion (WELLBUTRIN) 100 MG tablet Take 1 (one) tablet (100 mg total) by mouth 2 (two) times a day . 60 tablet 1 ibuprofen (ADVIL,MOTRIN) 800 MG tablet Take 800 mg by mouth every 6 (six) hours as needed for pain . levothyroxine (SYNTHROID, LEVOTHROID) 200 MCG tablet Take 1 (one) tablet (200 mcg total) by mouth once daily . 30 tablet 2 levothyroxine (SYNTHROID, LEVOTHROID) 25 MCG tablet Take 1 (one) tablet (25 mcg total) by mouth daily . 30 tablet 3 prenat.vits,ronny,zyc-ayol-ryuip Tab Take by mouth . aspirin 81 MG EC tablet Take 81 mg by mouth daily . docusate sodium (COLACE) 100 MG capsule Take 100 mg by mouth 2 (two) times a day . No current facility-administered medications for this visit. Review of Systems Constitutional: Positive for fatigue. Negative for appetite change and diaphoresis. Respiratory: Negative for cough and shortness of breath. Cardiovascular: Positive for palpitations. Negative for chest pain and leg swelling. Gastrointestinal: Negative for abdominal pain and constipation. Endocrine: Positive for cold intolerance. Skin: Negative for rash and wound. Neurological: Negative for dizziness, weakness, numbness and headaches. Psychiatric/Behavioral: Positive for agitation. Negative for confusion, decreased concentration andsleep disturbance. The patient is nervous/anxious. Physical Exam: BP 127/88 (BP Location: Right arm, Patient Position: Sitting, BP Cuff Size: X- large Adult) Pulse (!) 113 Temp 98.4 F (36.9 C) (Oral) Resp 16 Ht 5' 6 Wt 124.1 kg (273 lb 11.2 oz) LMP 11/07/2019 (Approximate) SpO2 96% BMI 44.18 kg/m Wt Readings from Last 3 Encounters: 11/16/19 124.1 kg (273 lb 11.2 oz) 08/24/19 121.6 kg (268 lb) 04/10/19 110.9 kg (244 lb 9.6 oz) BP Readings from Last 3 Encounters: 11/16/19 127/88 08/24/19 116/78 04/10/19 103/72 Physical Exam Vitals signs reviewed. Constitutional: General: She is not in acute distress. Appearance: She is well-developed. She is obese. She is not diaphoretic. Eyes: Conjunctiva/sclera: Conjunctivae normal. Neck: Musculoskeletal: Normal range of motion. Vascular: No carotid bruit. Cardiovascular: Rate and Rhythm: Normal rate and regular rhythm. Heart sounds: Normal heart sounds. No murmur. Pulmonary: Effort: Pulmonary effort is normal. No respiratory distress. Breath sounds: Normal breath sounds. Lymphadenopathy: Cervical: No cervical adenopathy. Skin: Capillary Refill: Capillary refill takes less than 2 seconds. Psychiatric: Mood and Affect: Mood normal. Behavior: Behavior normal. Health Maintenance Due Topic Date Due Pap Smear 1987 Wellness Visit 1990 For any new medications prescribed today, patient was educated about indications for the medication, how to take the medication and potential side effects of the medications. documented in this encounter* Rochelel Martinez LPC - 01/29/2020 2:49 PM EDT Patient no longer interested in engaging in the [facility] program. Will unenroll from registry. Happy to help in the future if patient re-engages. documented in this encounter* Christa Sarmiento CNP - 03/07/2020 4:15 PM EDT Chief Complaint Patient presents with Weight Gain NOATAK: Pt who is a pleasant 34-year-old female presenting to the office for atypical eating disorder, insulin resistance, sleep disturbance, migraine, and obesity Body mass index is 42.98 kg/m . 03/07/2020 Weight 266.3 Height 5'6 BMI 42.98 Waist circumference 48 Fat Mass 142.09 Resting energy expenditures 1827 Skeletal muscle mass 60.2 Total body water 42. Visceral fat 4.5 02/08/2020 weight 266.4 BMI 43 03/07/2020 weight 266.3 BMI 42.98 Diet: Good days/bad days. Tracking calories- average 1500 calories daily. Switched to diet soda, increased water. Eating 2-3 meals per day Snacks: Chips, cheese sticks, vege with low fat dip, cupcakes x 1 day. Missing meals: Breakfast Alcohol use: denies Exercise: Walking 3 days per week. 3 minutes Limitations: denies Energy: Tired in AM Volume cravings: Denies Sweet/Starch cravings: Craving sweets, worse with cycle that started this week Binging Behavior: Denies Sleep: 4-5 hours per night, staying up to keep an eye on her boyfriend Current plan of care: Wellbutrin 300 daily, Topamax 50 daily, and Synthroid 225 daily, phentermine 37.5 round 1. Patient tolerates well, denies side effects. Impression: 1. Atypical eating disorder 2. Insulin resistance 3. Sleep disturbance 4. Obesity Medications reviewed with patient. The following portions of the patient's history were reviewed and updated as appropriate: allergies, current medications, past family history, past medical history, past social history, past surgicalhistory and problem list . Review of Systems Constitutional: Positive for appetite change, fatigue and unexpected weight change. Negative for activity change. HENT: Negative. Respiratory: Negative. Negative for cough, chest tightness and shortness of breath. Cardiovascular: Negative for chest pain and palpitations. Gastrointestinal: Negative for abdominal pain, constipation and diarrhea. Genitourinary: Negative. Musculoskeletal: Negative. Skin: Negative. Neurological: Negative for dizziness, weakness and headaches. Hematological: Negative for adenopathy. Psychiatric/Behavioral: The patient is nervous/anxious. Past Medical History: Diagnosis Date Anxiety Asthma Depression Disease of thyroid gland hypothyroid Hodgkin's lymphoma (HCC) 09/2011 Lymphoma, Hodgkin's (HCC) Preeclampsia previous Social History Socioeconomic History Marital status: Spouse name: Not on file Number of children: Not on file Years of education: Not on file Highest education level: Not on file Occupational History Not on file Social Needs Financial resource strain: Not on file Food insecurity Worry: Not on file Inability: Not on file Transportation needs Medical: Not on file Non-medical: Not on file Tobacco Use Smoking status: Never Smoker Smokeless tobacco: Never Used Substance and Sexual Activity Alcohol use: Never Frequency: Never Drug use: Never Sexual activity: Yes Partners: Male Lifestyle Physical activity Days per week: Not on file Minutes per session: Not on file Stress: Not on file Relationships Social connections Talks on phone: Not on file Gets together: Not on file Attends scientologist service: Not on file Active member of club or organization: Not on file Attends meetings of clubs or organizations: Not on file Relationship status: Not on file Other Topics Concern Not on file Social History Narrative Not on file Current Outpatient Medications Medication Sig Dispense Refill buPROPion (WELLBUTRIN SR) 150 MG 12 hr tablet Take 1 (one) tablet (150 mg total) by mouth 2 (two) times a day . 60 tablet 11 ibuprofen (ADVIL,MOTRIN) 800 MG tablet Take 800 mg by mouth every 6 (six) hours as needed for pain . levothyroxine (SYNTHROID, LEVOTHROID) 200 MCG tablet Take 1 (one) tablet (200 mcg total) by mouth once daily . 90 tablet 1 levothyroxine (SYNTHROID, LEVOTHROID) 25 MCG tablet Take 1 (one) tablet (25 mcg total) by mouth daily . 90 tablet 1 SUMAtriptan (IMITREX) 50 MG tablet Take 1 (one) tablet (50 mg total) by mouth every 2 (two) hours as needed for migraine Max of 200 mg in 24hrs . 10 tablet 1 phentermine (ADIPEX-P) 37.5 mg tablet Take 1 (one) tablet (37.5 mg total) by mouth every morning Round 1 bmi 42.98 . 30 tablet 0 topiramate (TOPAMAX) 50 MG tablet Take 1 (one) tablet (50 mg total) by mouth 2 (two) times a day . 180 tablet 0 zolpidem (Ambien) 10 mg tablet Take 1 (one) tablet (10 mg total) by mouth nightly as needed for sleep . 7 tablet 0 No current facility-administered medications for this visit. BP 115/70 (BP Location: Left arm, Patient Position: Sitting, BP Cuff Size: X- large Adult) Pulse (!) 105 Temp 98.2 F (36.8 C) (Oral) Resp 18 Ht 5' 6 Wt 120.8 kg (266 lb 4.8 oz) SpO2 99% BMI 42.98 kg/m Physical Exam Vitals signs and nursing note reviewed. Constitutional: Appearance: Normal appearance. She is well-developed. She is obese. HENT: Head: Normocephalic and atraumatic. Neck: Musculoskeletal: Normal range of motion. Vascular: No carotid bruit. Cardiovascular: Rate and Rhythm: Normal rate and regular rhythm. Pulses: Normal pulses. Heart sounds: Normal heart sounds. Pulmonary: Effort: Pulmonary effort is normal. Breath sounds: Normal breath sounds. Abdominal: General: Bowel sounds are normal. Palpations: Abdomen is soft. Musculoskeletal: Normal range of motion. Right lower leg: No edema. Left lower leg: No edema. Skin: General: Skin is warm and dry. Capillary Refill: Capillary refill takes less than 2 seconds. Neurological: Mental Status: She is alert and oriented to person, place, and time. Psychiatric: Attention and Perception: Attention normal. Mood and Affect: Mood is anxious and depressed. Speech: Speech normal. Behavior: Behavior normal. Thought Content: Thought content normal. Cognition and Memory: Cognition normal. Judgment: Judgment normal. OARRS/NARxCHECK Report Received and Assessed: 03/07/2020 Date controlled substance agreement signed: 03/07/2020 Date of last drug screen: No data found Functional Assessment: No data found Problem List Items Addressed This Visit Endocrine Insulin resistance Continue the currently prescribed calorie load and composition Other Obesity, Class II, BMI 35-39.9 Continue the currently prescribed calorie load and composition Relevant Medications topiramate (TOPAMAX) 50 MG tablet phentermine (ADIPEX-P) 37.5 mg tablet Atypical eating disorder - Primary Diet: 9949-1497 calories per day with a goal of 120 g/day protein and 60 g/day carbs Exercise Prescription: 3 days per week for 30 minutes- Goal 150 minutes per week Counselor/Therapist: [facility] to eating patterns and macronutrient composition as well as activity levels discussed in detail Medications: Wellbutrin 300 daily, Topamax 25 daily, synthroid 225. Topamax increased to 50 twice daily Follow-up: 2 weeks Relevant Medications zolpidem (Ambien) 10 mg tablet phentermine (ADIPEX-P) 37.5 mg tablet Sleep disturbance Trial the Ambien to see if this helps with your sleep patterns. Take this around 10 am. Relevant Medications zolpidem (Ambien) 10 mg tablet Return in about 1 week (around 03/14/2020) for Follow Up- weight . Discussed elevated Body Mass Index (BMI): Advised regular exercise. Discussed elevated Body Mass Index (BMI): Advised healthy and appropriate diet. Discussed elevated Body Mass Index (BMI): Nutrition referral. Rationale: Overweight (Findings) BMI This note was partially created using voice recognition software and is inherently subject to errors including those of syntax and sound-alike substitutions which may escape proofreading. In such instances, original meaning may be extrapolated by contextual derivation documented in this encounter* Evi Pacheco MD - 04/23/2020 11:20 AM EDT Aurora Mendez is a 34 y.o. female Assessment/Plan: Problem List Items Addressed This Visit Endocrine Hypothyroidism May be contributing to her hair loss. Will get TSH and T4 levels. She is taking medications as prescribed. Relevant Orders TSH T4, Free Other Anxiety and depression Chronic, handling her moods better however several stressors still present her life. Wellbutrin switched to extended release to help with adherence. Relevant Medications buPROPion (Wellbutrin XL) 150 MG 24 hr tablet Other Visit Diagnoses Hair loss - Primary Likely in the setting of stress but may be due to restarting Topamax. We will check her thyroid. Ferritin also ordered Relevant Orders TSH T4, Free Ferritin Need for influenza vaccination Relevant Medications flu vacc [id number] 6mos up,PF, sdv (FLUZONE QUAD) injection Other Relevant Orders Influenza IIV4 3yo or >,Fluzone Quad (Completed) Return in about 6 months (around 10/21/2020) for Annual physical w/ PAP. Aurora Mendez is a 34 y.o. female who presents for Chief Complaint Patient presents with Alopecia Hypothyroidism HPI This a 34-year-old female with significant history of hypothyroidism who presents today with hair loss. She states that for the past few months she has been noticing that as she comes to her hair sheis losing more hair. She has not noticed any patches of hair loss. She is noticing more after washing them on combing. She denies any history of hair loss. She was on Topamax in past but dose was lower. LMP: 04/11/20, lasting 5-6 days, monthly. Not heavy. Patient Active Problem List Diagnosis Hodgkin's disease (HCC) Obesity, Class II, BMI 35-39.9 Hypothyroidism Leg swelling Anxiety and depression Migraine Atypical eating disorder Insulin resistance Sleep disturbance Past Surgical History: Procedure Laterality Date SECTION, LOW TRANSVERSE Two prior CHEMOTHERAPY Hodgkins Lymphoma CHOLECYSTECTOMY RADIATION chest for Hodgkins Lyphoma TONSILLECTOMY AND ADENOIDECTOMY Family History Problem Relation Age of Onset Depression Mother Hypothyroidism Mother Diabetes Father Depression Father Chiari malformation Father Alcohol abuse Maternal Grandfather Colon cancer Maternal Grandfather Diabetes Paternal Grandmother Colon cancer Paternal Grandmother Social History Tobacco Use Smoking status: Never Smoker Smokeless tobacco: Never Used Substance Use Topics Alcohol use: Never Frequency: Never Drug use: Never Current Outpatient Medications Medication Sig Dispense Refill levothyroxine (SYNTHROID, LEVOTHROID) 200 MCG tablet Take 1 (one) tablet (200 mcg total) by mouth once daily . 90 tablet 1 levothyroxine (SYNTHROID, LEVOTHROID) 25 MCG tablet Take 1 (one) tablet (25 mcg total) by mouth daily . 90 tablet 1 phentermine (ADIPEX-P) 37.5 mg tablet Take 1 (one) tablet (37.5 mg total) by mouth every morning Round 2 BMI 42.3 . 30 tablet 0 SUMAtriptan (IMITREX) 50 MG tablet Take 1 (one) tablet (50 mg total) by mouth every 2 (two) hours as needed for migraine Max of 200 mg in 24hrs . 10 tablet 1 topiramate (TOPAMAX) 50 MG tablet Take 1 (one) tablet (50 mg total) by mouth 2 (two) times a day . 180 tablet 0 buPROPion (Wellbutrin XL) 150 MG 24 hr tablet Take 1 (one) tablet (150 mg total) by mouth daily . 30 tablet 11 flu vacc [id number] 6mos up,PF, sdv (FLUZONE QUAD) injection Sign this order in conjunction with theimmunization order to satisfy [place] Board [employer] Pharmacy Positive ID requirements for immunization orders. . 0.5 mL 0 No current facility-administered medications for this visit. Review of Systems Constitutional: Negative for appetite change, diaphoresis and fatigue. Respiratory: Negative for cough and shortness of breath. Cardiovascular: Negative for chest pain and palpitations. Endocrine: Negative for cold intolerance, heat intolerance, polydipsia, polyphagia and polyuria. Skin: Negative for rash and wound. Neurological: Negative for dizziness and headaches. Psychiatric/Behavioral: Negative for confusion, decreased concentration and sleep disturbance. The patient is not nervous/anxious. Physical Exam: BP 104/68 (BP Location: Right arm, Patient Position: Sitting, BP Cuff Size: X- large Adult) Pulse (!) 105 Temp 97.1 F (36.2 C) (Temporal) Resp 18 Ht 5' 5 Wt 113.1 kg (249 lb 4.8 oz) LMP 04/11/2020 (Approximate) SpO2 97% BMI 41.49 kg/m Wt Readings from Last 3 Encounters: 04/23/20 113.1 kg (249 lb 4.8 oz) 04/09/20 115.3 kg (254 lb 1.6 oz) 03/19/20 118.6 kg (261 lb 6.4 oz) BP Readings from Last 3 Encounters: 04/23/20 104/68 04/09/20 115/81 03/07/20 115/70 Physical Exam Vitals signs reviewed. Constitutional: General: She is not in acute distress. Appearance: She is well-developed. She is not diaphoretic. Eyes: Conjunctiva/sclera: Conjunctivae normal. Neck: Musculoskeletal: Normal range of motion. Thyroid: No thyromegaly. Vascular: No carotid bruit. Cardiovascular: Rate and Rhythm: Normal rate and regular rhythm. Heart sounds: Normal heart sounds. No murmur. Pulmonary: Effort: Pulmonary effort is normal. No respiratory distress. Breath sounds: Normal breath sounds. Abdominal: General: There is no distension. Palpations: Abdomen is soft. Musculoskeletal: Right lower leg: No edema. Left lower leg: No edema. Lymphadenopathy: Cervical: No cervical adenopathy. Skin: Capillary Refill: Capillary refill takes less than 2 seconds. Neurological: Mental Status: She is alert. Psychiatric: Mood and Affect: Mood normal. Behavior: Behavior normal. OARRS/NARxCHECK Report Received and Assessed: 04/09/2020 Date controlled substance agreement signed: 03/07/2020 Date of last drug screen: 03/19/2020 Functional Assessment: No data found Health Maintenance Due Topic Date Due Pap Smear 1987 Wellness Visit 1990 HIV Screening 2002 Hepatitis C Screening 2005 Sequential Influenza Vaccine (1) 04/15/2020 Goals None Please note: Portions of this chart may have been created with [employer] voice recognition software. Occasional wrong-word or sound-like substitutions may have occurred due to inherent limitations of the voice recognition software. Please read the chart carefully and recognize, using context, where the substitutions have occurred. For any new medications prescribed today, patient was educated about indications for the medication, how to take the medication and potential side effects of the medications. documented in this encounter* Christa Sarmiento, [employer] - 07/29/2020 7:07 AM EST Chief Complaint Patient presents with Weight Check NOATAK: Pt who is a pleasant 34-year-old female presenting to the office for atypical eating disorder, sleep disturbance, migraine, and obesity Body mass index is 37.9 kg/m . 07/29/2020 Weight 234.8 Height 5'6 BMI 37.9 Waist circumference 40 Fat Mass 122.16 Resting energy expenditures 1711 Skeletal muscle mass 53.4 Total body water 37.7 Visceral fat 2.3 02/08/2020 weight 266.4 BMI 43 03/07/2020 weight 266.3 BMI 42.98 03/19/2020 weight 261.4 BMI 42.18 04/09/2020 weight 254.1 BMI 42.19 05/06/2020 weight 247.4 BMI 41.20 06/10/2020 weight 243.4 BMI 40.5 07/01/2020 weight 236.9 BMI 38.23 07/29/2020 weight 234.8 BMI 37.9 Diet: Tracking calories with average 8749-5202 calories daily. Goal 5778-3787 calories daily. Days eating too much with feelings of guilt. Drinking diet pepsi Snacks: 1/day with fruit and air popcorn Missing meals: changes with mood Alcohol use: denies any use Exercise: Has not been exercising Limitations: denies Energy: Tired in AM does not sleep well well, unable to take sleep aids due to childcare. Mood: Increased anxiety and depression related to significant other relationship. Volume cravings: Denies Sweet/Starch cravings: cravings at night, taco feliciano Binging Behavior: Denies Mood: Improving Sleep: 4-5 hours per night, staying up to keep an eye on her boyfriend due to history of cheating. No coming home at night. Using Ambien to help with sleep as needed Current plan of care: Wellbutrin 300 daily, Topamax 50 daily, and Synthroid 200 daily Patient tolerates well, denies side effects. Impression: 1. Atypical eating disorder 2. Depression and anxiety 3. hypothyroidism 4. obesity Medications reviewed with patient. The following portions of the patient's history were reviewed and updated as appropriate: allergies, current medications, past family history, past medical history, past social history, past surgicalhistory and problem list Review of Systems Constitutional: Positive for fatigue. Negative for activity change, appetite change and unexpected weight change. HENT: Negative. Respiratory: Negative. Negative for cough, chest tightness and shortness of breath. Cardiovascular: Negative for chest pain and palpitations. Gastrointestinal: Negative for abdominal pain, constipation and diarrhea. Genitourinary: Negative. Musculoskeletal: Negative. Skin: Negative. Neurological: Negative for dizziness, weakness and headaches. Hematological: Negative for adenopathy. Psychiatric/Behavioral: The patient is nervous/anxious. Past Medical History: Diagnosis Date Anxiety Asthma Depression Disease of thyroid gland hypothyroid Hodgkin's lymphoma (HCC) 09/2011 Lymphoma, Hodgkin's (HCC) Preeclampsia previous Social History Socioeconomic History Marital status: Spouse name: Not on file Number of children: Not on file Years of education: Not on file Highest education level: Not on file Occupational History Not on file Social Needs Financial resource strain: Not on file Food insecurity Worry: Not on file Inability: Not on file Transportation needs Medical: Not on file Non-medical: Not on file Tobacco Use Smoking status: Never Smoker Smokeless tobacco: Never Used Substance and Sexual Activity Alcohol use: Yes Frequency: Monthly or less Drug use: Never Sexual activity: Yes Partners: Male Lifestyle Physical activity Days per week: Not on file Minutes per session: Not on file Stress: Not on file Relationships Social connections Talks on phone: Not on file Gets together: Not on file Attends scientologist service: Not on file Active member of club or organization: Not on file Attends meetings of clubs or organizations: Not on file Relationship status: Not on file Other Topics Concern Not on file Social History Narrative Not on file Current Outpatient Medications Medication Sig Dispense Refill buPROPion (WELLBUTRIN XL) 300 MG 24 hr tablet Take 1 (one) tablet (300 mg total) by mouth daily . 30 tablet 11 FLUoxetine (PROZAC) 20 MG capsule Take 1 (one) capsule (20 mg total) by mouth daily . 90 capsule 0 levothyroxine (SYNTHROID, LEVOTHROID) 200 MCG tablet Take 1 (one) tablet (200 mcg total) by mouth once daily . 90 tablet 1 SUMAtriptan (IMITREX) 50 MG tablet Take 1 (one) tablet (50 mg total) by mouth every 2 (two) hours as needed for migraine Max of 200 mg in 24hrs . 10 tablet 1 topiramate (TOPAMAX) 50 MG tablet Take 1 (one) tablet (50 mg total) by mouth 2 (two) times a day . 180 tablet 0 No current facility-administered medications for this visit. BP 122/86 (BP Location: Left arm, Patient Position: Sitting, BP Cuff Size: Adult) Pulse (!) 110 Temp 98.7 F (37.1 C) (Temporal) Resp 18 Ht 5' 6 Wt 106.5 kg (234 lb 12.8 oz) LMP 07/17/2020 (Exact Date) SpO2 98% BMI 37.90 kg/m Physical Exam Vitals signs and nursing note reviewed. Constitutional: Appearance: Normal appearance. She is well-developed. She is obese. HENT: Head: Normocephalic and atraumatic. Neck: Musculoskeletal: Normal range of motion. Vascular: No carotid bruit. Cardiovascular: Rate and Rhythm: Normal rate and regular rhythm. Pulses: Normal pulses. Heart sounds: Normal heart sounds. Pulmonary: Effort: Pulmonary effort is normal. Breath sounds: Normal breath sounds. Abdominal: General: Bowel sounds are normal. Palpations: Abdomen is soft. Musculoskeletal: Normal range of motion. Right lower leg: No edema. Left lower leg: No edema. Skin: General: Skin is warm and dry. Capillary Refill: Capillary refill takes less than 2 seconds. Neurological: Mental Status: She is alert and oriented to person, place, and time. Psychiatric: Attention and Perception: Attention normal. Mood and Affect: Mood is anxious and depressed. Speech: Speech normal. Behavior: Behavior normal. Thought Content: Thought content normal. Cognition and Memory: Cognition normal. Judgment: Judgment normal. Problem List Items Addressed This Visit Endocrine Hypothyroidism You will need to have your thyroid level rechecked to make sure you are on the correct dose of levothyroxine. Relevant Orders TSH with Reflex Free T4 Other Obesity, Class II, BMI 35-39.9 Continue the currently prescribed calorie load and composition Relevant Medications topiramate (TOPAMAX) 50 MG tablet Anxiety and depression Continue meds as prescribed, watch diet, and increase activity as able to tolerate. Atypical eating disorder - Primary Diet: 3485-0823 calories per day with a goal of 120 g/day protein and 60 g/day carbs Exercise Prescription: 3 days per week for 30 minutes- Goal 150 minutes per week Counselor/Therapist: Complete your nutrition evaluation and education at [facility] Lifestyle[facility] to eating patterns and macronutrient composition as well as activity levels discussed in detail Medications: Wellbutrin 300 daily, Topamax 50 BID, synthroid 225 Follow-up: 4 weeks Return in about 4 weeks (around 08/26/2020) for Next scheduled follow up-weight . Discussed elevated Body Mass Index (BMI): Advised regular exercise. Discussed elevated Body Mass Index (BMI): Advised healthy and appropriate diet. Discussed elevated Body Mass Index (BMI): Nutrition referral. Rationale: Overweight (Findings) BMI This note was partially created using voice recognition software and is inherently subject to errors including those of syntax and sound-alike substitutions which may escape proofreading. In such instances, original meaning may be extrapolated by contextual derivation documented in this encounter* Evi Pacheco MD - 08/04/2020 3:11 PM EST Aurora Mendez is a 35 y.o. female Assessment/Plan: Problem List Items Addressed This Visit Endocrine Hypothyroidism This is a chronic problem you are currently taking Synthroid. We will check your thyroid levels to see if you are causing any issues with your menstrual cycles. Other Vaginal bleeding - Primary On physical exam today there was blood coming out of the cervical os. We discussed that this may likely be another menstrual cycle. This may be off in the setting of thyroid dysfunction. We will check your thyroid function. The urinalysis in the office did show some nitrites and leuks. However thisis hard to diagnose due to the blood. We will get a urine culture. Due to the pelvic pain in the left lower abdomen we will check your ovary as well. STD testing was done today. Relevant Orders CBC and Differential US Transvaginal Chlamydia/GC/Trichomonas Amplified RNA Other Visit Diagnoses Dysuria Relevant Orders Urine Aerobic Culture Chlamydia/GC/Trichomonas Amplified RNA No follow-ups on file. Aurora Mendez is a 35 y.o. female who presents for Chief Complaint Patient presents with Dysuria HPI Presents today with vaginal spotting that is now active bleeding. She has not had vaginal discharge, itching or pelvic pain. Last menstrual period: 07/17, lasted about 6 days/ Stopped on the . Symptoms started 5 days ago after sexually intercourse. No pelvic pain, no back pain. No dysuria. history of tubal ligation and normal menstrual cycles. Her significant other denies any sexually transmitted disease however she suspects that he has been sleeping with someone else. Patient Active Problem List Diagnosis Hodgkin's disease (HCC) Obesity, Class II, BMI 35-39.9 Hypothyroidism Leg swelling Anxiety and depression Migraine Atypical eating disorder Sleep disturbance Vaginal bleeding Past Surgical History: Procedure Laterality Date SECTION, LOW TRANSVERSE Two prior CHEMOTHERAPY Hodgkins Lymphoma CHOLECYSTECTOMY RADIATION chest for Hodgkins Lyphoma TONSILLECTOMY AND ADENOIDECTOMY Family History Problem Relation Age of Onset Depression Mother Hypothyroidism Mother Diabetes Father Depression Father Chiari malformation Father Alcohol abuse Maternal Grandfather Colon cancer Maternal Grandfather Diabetes Paternal Grandmother Colon cancer Paternal Grandmother Social History Tobacco Use Smoking status: Never Smoker Smokeless tobacco: Never Used Substance Use Topics Alcohol use: Yes Frequency: Monthly or less Drug use: Never Current Outpatient Medications Medication Sig Dispense Refill buPROPion (WELLBUTRIN XL) 300 MG 24 hr tablet Take 1 (one) tablet (300 mg total) by mouth daily . 30 tablet 11 FLUoxetine (PROZAC) 20 MG capsule Take 1 (one) capsule (20 mg total) by mouth daily . 90 capsule 0 levothyroxine (SYNTHROID, LEVOTHROID) 200 MCG tablet Take 1 (one) tablet (200 mcg total) by mouth once daily . 90 tablet 1 SUMAtriptan (IMITREX) 50 MG tablet Take 1 (one) tablet (50 mg total) by mouth every 2 (two) hours as needed for migraine Max of 200 mg in 24hrs . 10 tablet 1 topiramate (TOPAMAX) 50 MG tablet Take 1 (one) tablet (50 mg total) by mouth 2 (two) times a day . 180 tablet 0 No current facility-administered medications for this visit. Review of Systems Constitutional: Negative for chills, diaphoresis and fatigue. Gastrointestinal: Negative for abdominal pain, diarrhea and nausea. Endocrine: Negative for polyuria. Genitourinary: Positive for hematuria and vaginal bleeding. Negative for decreased urine volume, difficulty urinating, dysuria, flank pain, pelvic pain, urgency and vaginal discharge. Musculoskeletal: Negative for back pain. Skin: Negative for rash. Psychiatric/Behavioral: Negative for confusion and decreased concentration. Physical Exam: BP 138/83 (BP Location: Left arm, Patient Position: Sitting, BP Cuff Size: X- large Adult) Pulse (!) 117 Temp 98 F (36.7 C) (Temporal) Resp 18 Ht 5' 6 Wt 105.7 kg (233 lb) LMP 07/17/2020 (Exact Date) SpO2 99% BMI 37.61 kg/m Wt Readings from Last 3 Encounters: 08/04/20 105.7 kg (233 lb) 07/29/20 106.5 kg (234 lb 12.8 oz) 07/01/20 107.5 kg (236 lb 14.4 oz) BP Readings from Last 3 Encounters: 08/04/20 138/83 07/29/20 122/86 07/01/20 121/85 Physical Exam Vitals signs reviewed. Exam conducted with a trustee of estate present. Constitutional: General: She is not in acute distress. Appearance: She is not ill-appearing. Eyes: Conjunctiva/sclera: Conjunctivae normal. Cardiovascular: Rate and Rhythm: Normal rate and regular rhythm. Pulmonary: Effort: Pulmonary effort is normal. Breath sounds: Normal breath sounds. Abdominal: General: Bowel sounds are normal. There is no distension. Tenderness: There is abdominal tenderness in the left lower quadrant. There is no right CVA tenderness, left CVA tenderness, guarding or rebound. Negative signs include Rovsing's sign. Genitourinary: General: Normal vulva. Cervix: Cervical bleeding present. No discharge, friability or lesion. Uterus: Normal. Adnexa: Right: No mass, tenderness or fullness. Left: Tenderness and fullness present. Psychiatric: Mood and Affect: Mood normal. Behavior: Behavior normal. Health Maintenance Due Topic Date Due Pap Smear 1987 Wellness Visit 1990 HIV Screening 2002 Hepatitis C Screening 2005 Please note: Portions of this chart may have been created with [employer] voice recognition software. Occasional wrong-word or sound-like substitutions may have occurred due to inherent limitations of the voice recognition software. Please read the chart carefully and recognize, using context, where the substitutions have occurred. For any new medications prescribed today, patient was educated about indications for the medication, how to take the medication and potential side effects of the medications. documented in this encounter* Kae Vargas RN - 08/10/2019 7:35 AM EST Fax received from [facility]. Home visit 08/06/19 related to daughter Allen Howard,03/14/19. Pt. completed EPDS total 15. (Maximum score: 30 with Possible Depression: 10 or greater) Weekly visits indicated per SERGO Murphy, Phoned Jeffrey HAMMER for update. documented in this encounter* Emili Edouard, [facility] - 01/17/2019 2:49 PM EDT Chief Complaint Patient presents with Wrist Pain x last week. No known injury SUBJECTIVE 33 y.o. female presents Wrist Pain (x last week. No known injury ) PT presents with left wrist pain. Thought she slept on it wrong. Is 7 months . Started overweek ago and has continued to get worse, and now has swelling of the wrist jonh the lateral radius near wrist. Denies having a repetitive movement MEDICAL ISSUES Past Medical History: Diagnosis Date Disease of thyroid gland hypothyroid Lymphoma, Hodgkin's (HCC) Preeclampsia previous There is no problem list on file for this patient. SOCIAL HISTORY Social History Socioeconomic History Marital status: Spouse name: Not on file Number of children: Not on file Years of education: Not on file Highest education level: Not on file Occupational History Not on file Social Needs Financial resource strain: Not on file Food insecurity: Worry: Not on file Inability: Not on file Transportation needs: Medical: Not on file Non-medical: Not on file Tobacco Use Smoking status: Never Smoker Smokeless tobacco: Never Used Substance and Sexual Activity Alcohol use: Never Frequency: Never Drug use: Never Sexual activity: Yes Partners: Male Lifestyle Physical activity: Days per week: Not on file Minutes per session: Not on file Stress: Not on file Relationships Social connections: Talks on phone: Not on file Gets together: Not on file Attends scientologist service: Not on file Active member of club or organization: Not on file Attends meetings of clubs or organizations: Not on file Relationship status: Not on file Other Topics Concern Not on file Social History Narrative Not on file FAMILY HISTORY Family History Problem Relation Age of Onset Diabetes Father REVIEW OF SYSTEMS Review of Systems Respiratory: Negative for cough. Gastrointestinal: Negative for nausea. Intrauterine pregancy Musculoskeletal: Positive for arthralgias (left wrist) and joint swelling. There is arthritis in family--father and gM Hematological: Negative for adenopathy. Does not bruise/bleed easily. Psychiatric/Behavioral: Negative for agitation and behavioral problems. MEDICATIONS PRIOR TO VISIT Current Outpatient Medications on File Prior to Visit Medication Sig Dispense Refill acetaminophen (TYLENOL) 325 MG tablet Take 650 mg by mouth every 6 (six) hours as needed for pain . levothyroxine (SYNTHROID, LEVOTHROID) 25 MCG tablet Take 25 mcg by mouth daily . 3 prenat.vits,ronny,[id number] Tab Take by mouth . No current facility-administered medications on file prior to visit. ALLERGIES/INTOLERANCES No Known Allergies OBJECTIVE BP 121/80 (BP Location: Right arm, Patient Position: Sitting, BP Cuff Size: X- large Adult) Pulse 98 Temp 98.2 F (36.8 C) (Oral) Resp 16 Ht 5' 5.5 Wt 115.2 kg (254 lb) SpO2 97% BMI 41.62 kg/m Physical Exam Constitutional: She is oriented to person, place, and time. She appears well- developed and well-nourished. No distress. Cardiovascular: Normal rate, regular rhythm and normal heart sounds. Pulmonary/Chest: Effort normal and breath sounds normal. Musculoskeletal: She exhibits edema (left wrist jonh thumb side. ) and tenderness. Limited ROM, cant do the Darrius's manuver. Worse effort at wrist movement but also can't flex or dorsiflex to the extent of right wrist. Neurological: She is alert and oriented to person, place, and time. Psychiatric: She has a normal mood and affect. Her behavior is normal. PROCEDURE Procedures Results No results found for this or any previous visit (from the past 168 hour(s)). ASSESSMENT/PLAN (expressed as patient instructions): SNOMED CT(R) 1. Tendonitis of wrist, left TENDONITIS OF LEFT WRIST Thumb spica splint 2. Pain and swelling of left wrist PAIN IN WRIST XR Wrist Left 3+ Views (Standard) CANCELED: XR Wrist Left 2 Views Return if symptoms worsen or fail to improve. ADDITIONAL CLINICAL COMMENTS No notes on file ORDERS PLACED THIS VISIT Orders Placed This Encounter Procedures Thumb spica splint XR Wrist Left 3+ Views (Standard) MEDICATION LIST AT END OF VISIT Current Outpatient Medications Medication Sig Dispense Refill acetaminophen (TYLENOL) 325 MG tablet Take 650 mg by mouth every 6 (six) hours as needed for pain . levothyroxine (SYNTHROID, LEVOTHROID) 25 MCG tablet Take 25 mcg by mouth daily . 3 prenat.vits,ronny,[id number] Tab Take by mouth . No current facility-administered medications for this visit. documented in this encounter* Christa Sarmiento CNP - 10/03/2020 7:10 AM EST Video Visit [facility] [address] [address] Via Real-time Synchronous Audiovisual [facility] 10/03/2020 Christa Sarmiento CNP Provider Location: office Patient Location Pulp Maker: None Patient Location: Patient's Home Patient: Aurora Mendez Date of : 1985 (35 y.o. female) PCP: Evi Pacheco MD Video Visit Consent Statement: I discussed risks, benefits and alternatives of a real-time synchronous audiovisual consultation with the patient (and any accompanying persons) including the risks that the patient s personal health details and medical records will be discussed over real-time, synchronous, interactive video/audio/telecommunication technology, the visit will not be recorded without the express consent of both the provider and the patient, and that there are some limitations compared to [id number] evaluations. We elected to proceed. NOATAK: Jaxon who is a pleasant 34-year-old female presenting to the office for atypical eating disorder, sleep disturbance, migraine, and obesity There is no height or weight on file to calculate BMI. 07/29/2020 Weight 234.8 Height 5'6 BMI 37.9 Waist circumference 40 Fat Mass 122.16 Resting energy expenditures 1711 Skeletal muscle mass 53.4 Total body water 37.7 Visceral fat 2.3 02/08/2020 weight 266.4 BMI 43 03/07/2020 weight 266.3 BMI 42.98 03/19/2020 weight 261.4 BMI 42.18 04/09/2020 weight 254.1 BMI 42.19 05/06/2020 weight 247.4 BMI 41.20 06/10/2020 weight 243.4 BMI 40.5 /07/01/2020 weight 236.9 BMI 38.23 07/29/2020 weight 234.8 BMI 37.9 08/29/2020 weight 250.11 BMI 40.5 10/03/2020 no scale at home Diet: Tracking calories, keeping calories at 1500 Snacks: Less snacking throughout the day Missing meals: Denies Alcohol use: denies any use Exercise: No formal exercise Limitations: denies Energy: Improving Mood: Increased anxiety and depression related to significant other relationship. Volume cravings: Denies Sweet/Starch cravings: cravings at night, improving Binging Behavior: Denies Mood: Improving Sleep: 4-5 hours per night, staying up to keep an eye on her boyfriend due to history of cheating. Not coming home at night Current plan of care: Wellbutrin 300 daily, Topamax 75 daily, and Synthroid 200 daily Patient tolerates well, denies side effects. Impression: 1. Atypical eating disorder 2. Hypothyroidism 3. migraine 4. obesity Medications reviewed with patient. The following portions of the patient's history were reviewed and updated as appropriate: allergies, current medications, past family history, past medical history, past social history, past surgicalhistory and problem list Review of Systems Constitutional: Positive for fatigue. Negative for activity change, appetite change and unexpected weight change. HENT: Negative. Respiratory: Negative. Negative for cough, chest tightness and shortness of breath. Cardiovascular: Negative for chest pain and palpitations. Gastrointestinal: Negative for abdominal pain, constipation and diarrhea. Genitourinary: Negative. Musculoskeletal: Negative. Skin: Negative. Neurological: Negative for dizziness, weakness and headaches. Hematological: Negative for adenopathy. Psychiatric/Behavioral: The patient is nervous/anxious. Past Medical History: Diagnosis Date Anxiety Asthma Depression Disease of thyroid gland hypothyroid Hodgkin's lymphoma (HCC) 09/2011 Lymphoma, Hodgkin's (HCC) Preeclampsia previous Social History Socioeconomic History Marital status: Spouse name: Not on file Number of children: Not on file Years of education: Not on file Highest education level: Not on file Occupational History Not on file Social Needs Financial resource strain: Not on file Food insecurity Worry: Not on file Inability: Not on file Transportation needs Medical: Not on file Non-medical: Not on file Tobacco Use Smoking status: Never Smoker Smokeless tobacco: Never Used Substance and Sexual Activity Alcohol use: Yes Frequency: Monthly or less Drug use: Never Sexual activity: Yes Partners: Male Lifestyle Physical activity Days per week: Not on file Minutes per session: Not on file Stress: Not on file Relationships Social connections Talks on phone: Not on file Gets together: Not on file Attends scientologist service: Not on file Active member of club or organization: Not on file Attends meetings of clubs or organizations: Not on file Relationship status: Not on file Other Topics Concern Not on file Social History Narrative Not on file Current Outpatient Medications Medication Sig Dispense Refill buPROPion (WELLBUTRIN XL) 300 MG 24 hr tablet Take 1 (one) tablet (300 mg total) by mouth daily . 30 tablet 11 FLUoxetine (PROZAC) 40 MG capsule Take 1 (one) capsule (40 mg total) by mouth daily . 90 capsule 0 levothyroxine (SYNTHROID, LEVOTHROID) 200 MCG tablet Take 1 (one) tablet (200 mcg total) by mouth once daily . 90 tablet 1 SUMAtriptan (IMITREX) 50 MG tablet Take 1 (one) tablet (50 mg total) by mouth every 2 (two) hours as needed for migraine Max of 200 mg in 24hrs . 10 tablet 1 topiramate (TOPAMAX) 25 MG tablet Take 1 (one) tablet (25 mg total) by mouth 2 (two) times a day . 60 tablet 2 topiramate (TOPAMAX) 50 MG tablet Take 1 (one) tablet (50 mg total) by mouth 2 (two) times a day . 180 tablet 0 No current facility-administered medications for this visit. There were no vitals taken for this visit. Physical Exam Vitals signs and nursing note reviewed. Constitutional: Appearance: Normal appearance. She is well-developed. She is obese. HENT: Head: Normocephalic and atraumatic. Neck: Musculoskeletal: Normal range of motion. Vascular: No carotid bruit. Cardiovascular: Rate and Rhythm: Normal rate and regular rhythm. Pulses: Normal pulses. Heart sounds: Normal heart sounds. Pulmonary: Effort: Pulmonary effort is normal. Breath sounds: Normal breath sounds. Abdominal: General: Bowel sounds are normal. Palpations: Abdomen is soft. Musculoskeletal: Normal range of motion. Right lower leg: No edema. Left lower leg: No edema. Skin: General: Skin is warm and dry. Capillary Refill: Capillary refill takes less than 2 seconds. Neurological: Mental Status: She is alert and oriented to person, place, and time. Psychiatric: Attention and Perception: Attention normal. Mood and Affect: Mood is anxious and depressed. Speech: Speech normal. Behavior: Behavior normal. Thought Content: Thought content normal. Cognition and Memory: Cognition normal. Judgment: Judgment normal. Problem List Items Addressed This Visit Endocrine Hypothyroidism Continue meds as prescribed, watch diet, and increase activity as able to tolerate. Cardiovascular and Mediastinum Migraine Continue meds as prescribed, watch diet, and increase activity as able to tolerate. Other Obesity, Class II, BMI 35-39.9 Continue the currently prescribed calorie load and composition Atypical eating disorder - Primary Diet: 8614-2238 calories per day with a goal of 120 g/day protein and 60 g/day carbs Exercise Prescription: 3 days per week for 30 minutes- Goal 150 minutes per week Counselor/Therapist: Complete your nutrition evaluation and [facility] at [facility] Lifestylechanges to eating patterns and macronutrient composition as well as activity levels discussed in detail Medications: Wellbutrin 300 daily, Topamax 75 BID, synthroid 225 Follow-up: 4 weeks Return in about 2 weeks (around 10/17/2020) for Follow Up- weight . Discussed elevated Body Mass Index (BMI): Advised regular exercise. Discussed elevated Body Mass Index (BMI): Advised healthy and appropriate diet. Discussed elevated Body Mass Index (BMI): Nutrition referral. Rationale: Overweight (Findings) BMI This note was partially created using voice recognition software and is inherently subject to errors including those of syntax and sound-alike substitutions which may escape proofreading. In such instances, original meaning may be extrapolated by contextual derivation documented in this encounter* Evi Pacheco MD - 10/10/2020 2:38 PM EST Aurora Mendez is a 35 y.o. female Video [place] [facility] [place] [address] [facility] [address] [facility] [id number] Via Real-time Synchronous Audiovisual [facility] 10/10/2020 Evi Pacheco MD Provider Location: office Patient Location Pulp Maker: None Patient Location: Patient's Home Patient: Aurora Mendez Date of : 1985 (35 y.o. female) PCP: Evi Pacheco MD Video Visit Consent Statement: I discussed risks, benefits and alternatives of a real-time synchronous audiovisual consultation with the patient (and any accompanying persons) including the risks that the patient s personal health details and medical records will be discussed over real-time, synchronous, interactive video/audio/telecommunication technology, the visit will not be recorded without the express consent of both the provider and the patient, and that there are some limitations compared to [id number] evaluations. We elected to proceed. Assessment/Plan: Problem List Items Addressed This Visit None Visit Diagnoses Sinusitis, unspecified chronicity, unspecified location - Primary Relevant Medications amoxicillin-clavulanate (AUGMENTIN) 875-125 mg per tablet benzonatate (TESSALON) 200 MG capsule No follow-ups on file. Aurora Mendez is a 35 y.o. female who presents for Chief Complaint Patient presents with URI HPI 35 year old with history of hypothyroidism who presents with cold symptoms. Started about 2 weeks ago. Started having coughing, congestion. No fever or chills. No COVID exposure. Kids had similar symptoms and are improving, she is still having symptoms. No known sick contacts. Patient Active Problem List Diagnosis Hodgkin's disease (HCC) Obesity, Class II, BMI 35-39.9 Hypothyroidism Leg swelling Anxiety and depression Migraine Atypical eating disorder Sleep disturbance Vaginal bleeding Past Surgical History: Procedure Laterality Date SECTION, LOW TRANSVERSE Two prior CHEMOTHERAPY Hodgkins Lymphoma CHOLECYSTECTOMY RADIATION chest for Hodgkins Lyphoma TONSILLECTOMY AND ADENOIDECTOMY Family History Problem Relation Age of Onset Depression Mother Hypothyroidism Mother Diabetes Father Depression Father Chiari malformation Father Alcohol abuse Maternal Grandfather Colon cancer Maternal Grandfather Diabetes Paternal Grandmother Colon cancer Paternal Grandmother Social History Tobacco Use Smoking status: Never Smoker Smokeless tobacco: Never Used Substance Use Topics Alcohol use: Yes Frequency: Monthly or less Drug use: Never Current Outpatient Medications Medication Sig Dispense Refill amoxicillin-clavulanate (AUGMENTIN) 875-125 mg per tablet Take 1 (one) tablet by mouth 2 (two) times a day for 7 days . 14 tablet 0 benzonatate (TESSALON) 200 MG capsule Take 1 (one) capsule (200 mg total) by mouth 3 (three) times a day as needed for cough . 20 capsule 0 buPROPion (WELLBUTRIN XL) 300 MG 24 hr tablet Take 1 (one) tablet (300 mg total) by mouth daily . 30 tablet 11 FLUoxetine (PROZAC) 40 MG capsule Take 1 (one) capsule (40 mg total) by mouth daily . 90 capsule 0 levothyroxine (SYNTHROID, LEVOTHROID) 200 MCG tablet Take 1 (one) tablet (200 mcg total) by mouth once daily . 90 tablet 1 SUMAtriptan (IMITREX) 50 MG tablet Take 1 (one) tablet (50 mg total) by mouth every 2 (two) hours as needed for migraine Max of 200 mg in 24hrs . 10 tablet 1 topiramate (TOPAMAX) 25 MG tablet Take 1 (one) tablet (25 mg total) by mouth 2 (two) times a day . 60 tablet 2 topiramate (TOPAMAX) 50 MG tablet Take 1 (one) tablet (50 mg total) by mouth 2 (two) times a day . 180 tablet 0 No current facility-administered medications for this visit. Review of Systems Constitutional: Negative for appetite change, chills, diaphoresis, fatigue and fever. HENT: Positive for congestion, postnasal drip, rhinorrhea and sore throat. Respiratory: Positive for cough. Negative for shortness of breath and wheezing. Cardiovascular: Negative for chest pain. Gastrointestinal: Negative for diarrhea and nausea. Neurological: Negative for headaches. Physical Exam: There were no vitals taken for this visit. Wt Readings from Last 3 Encounters: 08/29/20 113.7 kg (250 lb 11.2 oz) 08/04/20 105.7 kg (233 lb) 07/29/20 106.5 kg (234 lb 12.8 oz) BP Readings from Last 3 Encounters: 08/29/20 108/75 08/04/20 138/83 07/29/20 122/86 Physical Exam Constitutional: General: She is not in acute distress. Appearance: She is not ill-appearing. HENT: Head: Normocephalic. Eyes: Conjunctiva/sclera: Conjunctivae normal. Skin: Findings: No rash. Neurological: Mental Status: She is alert and oriented to person, place, and time. Psychiatric: Mood and Affect: Mood normal. Behavior: Behavior normal. Thought Content: Thought content normal. Please note: Portions of this chart may have been created with [employer] voice recognition software. Occasional wrong-word or sound-like substitutions may have occurred due to inherent limitations of the voice recognition software. Please read the chart carefully and recognize, using context, where the substitutions have occurred. For any new medications prescribed today, patient was educated about indications for the medication, how to take the medication and potential side effects of the medications. documented in this encounter* Steph North LPN - 04/10/2019 12:00 PM EDT Attempt to draw patient x2 without success pt went to hospital lab * Evi Pacheco MD - 04/10/2019 11:18 AM EDT Aurora Mendez is a 33 y.o. female Assessment/Plan: Problem List Items Addressed This Visit Endocrine Hypothyroidism -This is secondary to radiation after Hodgkin's lymphoma diagnosis. States that she does have a thyroid present. She is taking about 225 mcg of Synthroid daily. Not having any signs of hyperthyroidism however the dose was increased significantly during . Plan is to check TSH/T4 every 3 months and adjust as needed. She understands that if she experiences any hyperthyroidism symptoms, she can come in and be checked sooner. Relevant Medications levothyroxine (SYNTHROID, LEVOTHROID) 175 MCG tablet Other Relevant Orders TSH T4, Free Musculoskeletal and Integument Tenosynovitis of right wrist - Primary -This is a new problem likely secondary to increased use with her . We discussed resting herwrist as much as possible. As well as utilizing a brace to help. She is to ice and use ibuprofen asneeded. I reiterate that this may take time to resolve due to her chronic use with a baby. Relevant Medications arm brace Misc Other Visit Diagnoses Rash - No longer present. She should return to see me if it presents again. Based on description this was likely a fungal rash. Can be tx with Lamisil etc. Return in about 2 months (around 06/10/2019). Aurora Daniel Mendez is a 33 y.o. female who presents for Chief Complaint Patient presents with Rash Wrist Pain HPI This is a 33-year-old female with a pertinent past medical history of hypothyroidism, Hodgkin's disease in remission and anxiety. She presents today as a new patient to establish care. She has multiple concerns. Rash: started about 3 weeks ago. It was located under her breast, in her groin area on both sides, in the flexor regions of her arm and legs. It was pruritic. She saw her business development professional and as prescribed oral steroids. The rash lasted about 3 weeks and then went away. It has not come back. Wrist pain: her right wrist has started to hurt over the past few weeks. Its throbbing at baseline and sharp with certain movements. She cannot recall any injury. She denies any numbness or tingling.She has never injured the arm before. She did have a h/o carpal tunnel in the left wrist while . She denies any weakness but is afraid she may drop her . She denies neck pain or shoulder pain. She has not tried anything to make it better. Hypothyroidism: She has a long history of poorly controlled thyroid dz. States that after she had radiation for Hodgkins, she was diagnosed with hypothyroidism. It has been difficult to manage her levels. While she did go from about 112 mcg to 225mcg. This was managed by her [facility]. She denies any palpitations, heat intolerance, skin dryness. She has continued to have light vaginalbleeding since her about a month ago. Patient Active Problem List Diagnosis Hodgkin's disease (HCC) Obesity, Class II, BMI 35-39.9 Tenosynovitis of right wrist Hypothyroidism Past Surgical History: Procedure Laterality Date SECTION, LOW TRANSVERSE Two prior CHOLECYSTECTOMY TONSILLECTOMY AND ADENOIDECTOMY Family History Problem Relation Age of Onset Depression Mother Hypothyroidism Mother Diabetes Father Depression Father Chiari malformation Father Alcohol abuse Maternal Grandfather Colon cancer Maternal Grandfather Diabetes Paternal Grandmother Colon cancer Paternal Grandmother Social History Tobacco Use Smoking status: Never Smoker Smokeless tobacco: Never Used Substance Use Topics Alcohol use: Never Frequency: Never Drug use: Never Tobacco Counseling: Counseling given: Not Answered Current Outpatient Medications Medication Sig Dispense Refill acetaminophen (TYLENOL) 325 MG tablet Take 650 mg by mouth every 6 (six) hours as needed for pain . aspirin 81 MG EC tablet Take 81 mg by mouth daily . docusate sodium (COLACE) 100 MG capsule Take 100 mg by mouth 2 (two) times a day . levothyroxine (SYNTHROID, LEVOTHROID) 175 MCG tablet Take 175 mcg by mouth daily . levothyroxine (SYNTHROID, LEVOTHROID) 25 MCG tablet Take 25 mcg by mouth daily . 3 prenat.vits,ronny,vma-hbil-bppke Tab Take by mouth . [facility] every daily. . 1 each 0 No current facility-administered medications for this visit. Review of Systems Constitutional: Positive for fatigue. Negative for appetite change and unexpected weight change. Respiratory: Negative for cough and shortness of breath. Cardiovascular: Negative for chest pain and palpitations. Gastrointestinal: Positive for constipation (colace). Negative for abdominal pain and diarrhea. Endocrine: Negative for cold intolerance and heat intolerance. Genitourinary: Positive for vaginal bleeding (pad 1-2 times a day). Negative for difficulty urinating and dysuria. Skin: Negative for rash. Psychiatric/Behavioral: Positive for sleep disturbance. Negative for confusion and decreased concentration. Physical Exam: BP 103/72 (BP Location: Left arm, Patient Position: Sitting, BP Cuff Size: X- large Adult) Pulse 89 Temp 98.6 F (37 C) (Temporal) Resp 18 Ht 5' 6 Wt 110.9 kg (244 lb 9.6 oz) SpO2 97% BMI 39.48 kg/m Wt Readings from Last 3 Encounters: 04/10/19 110.9 kg (244 lb 9.6 oz) 01/17/19 115.2 kg (254 lb) BP Readings from Last 3 Encounters: 04/10/19 103/72 01/17/19 121/80 Physical Exam Vitals signs reviewed. Constitutional: Appearance: She is obese. She is not ill-appearing. HENT: Mouth/Throat: Mouth: Mucous membranes are moist. Neck: Thyroid: No thyroid mass, thyromegaly or thyroid tenderness. Cardiovascular: Rate and Rhythm: Normal rate and regular rhythm. Pulmonary: Effort: Pulmonary effort is normal. Breath sounds: Normal breath sounds. Abdominal: General: Abdomen is flat. Bowel sounds are normal. Palpations: Abdomen is soft. Musculoskeletal: Comments: + finskelstein Skin: Capillary Refill: Capillary refill takes less than 2 seconds. Coloration: Skin is not pale. Findings: No rash. Neurological: Mental Status: She is alert and oriented to person, place, and time. Psychiatric: Mood and Affect: Mood normal. Behavior: Behavior normal. Health Maintenance Due Topic Date Due PAP SMEAR 1987 Wellness Visit 1990 For any new medications prescribed today, patient was educated about indications for the medication, how to take the medication and potential side effects of the medications. documented in this encounter* Christa Sarmiento CNP - 05/06/2020 7:20 AM EDT Chief Complaint Patient presents with Follow-up Atypical eating disorder. NOATAK: Pt who is a pleasant 34-year-old female presenting to the office for atypical eating disorder, sleep disturbance, migraine, and obesity Body mass index is 41.2 kg/m . 05/06/2020 Weight 247.6 Height 5'6 BMI 41.20 Waist circumference 44 Fat Mass 139.64 Resting energy expenditures 1758 Skeletal muscle mass 52.0 Total body water 36.5 Visceral fat 3.6 02/08/2020 weight 266.4 BMI 43 03/07/2020 weight 266.3 BMI 42.98 03/19/2020 weight 261.4 BMI 42.18 04/09/2020 weight 254.1 BMI 42.19 05/06/2020 weight 247.4 BMI 41.20 Diet: Tracking calories with average 5641-0709 calories daily. Goal 3589-3783 calories daily Snacks: Denies snacking Missing meals: Breakfast, eats around 10 am Alcohol use: denies any use Exercise: Limited walking due to rain last week Limitations: denies Energy: Tired in AM does not sleep well well, unable to take sleep aids due to childcare. Mood: Increased anxiety and depression related to significant other relationship. Volume cravings: Denies Sweet/Starch cravings: Cravings for sugary sweets due to menstrual cycle last week Binging Behavior: Denies Mood: Poor Sleep: 4-5 hours per night, staying up to keep an eye on her boyfriend due to history of cheating. No coming home at night. Using Ambien to help with sleep Current plan of care: Wellbutrin 300 daily, Topamax 50 daily, and Synthroid 200 daily, phentermine 37.5 round 3. Patient tolerates well, denies side effects. Impression: 1. Atypical eating disorder 2. Depression and anxiety 3. Sleep disturbance 4. hypothyroidism 5. obesity Medications reviewed with patient. The following portions of the patient's history were reviewed and updated as appropriate: allergies, current medications, past family history, past medical history, past social history, past surgicalhistory and problem list Review of Systems Constitutional: Positive for fatigue. Negative for activity change, appetite change and unexpected weight change. HENT: Negative. Respiratory: Negative. Negative for cough, chest tightness and shortness of breath. Cardiovascular: Negative for chest pain and palpitations. Gastrointestinal: Negative for abdominal pain, constipation and diarrhea. Genitourinary: Negative. Musculoskeletal: Negative. Skin: Negative. Neurological: Negative for dizziness, weakness and headaches. Hematological: Negative for adenopathy. Psychiatric/Behavioral: The patient is nervous/anxious. Past Medical History: Diagnosis Date Anxiety Asthma Depression Disease of thyroid gland hypothyroid Hodgkin's lymphoma (HCC) 09/2011 Lymphoma, Hodgkin's (HCC) Preeclampsia previous Social History Socioeconomic History Marital status: Spouse name: Not on file Number of children: Not on file Years of education: Not on file Highest education level: Not on file Occupational History Not on file Social Needs Financial resource strain: Not on file Food insecurity Worry: Not on file Inability: Not on file Transportation needs Medical: Not on file Non-medical: Not on file Tobacco Use Smoking status: Never Smoker Smokeless tobacco: Never Used Substance and Sexual Activity Alcohol use: Never Frequency: Never Drug use: Never Sexual activity: Yes Partners: Male Lifestyle Physical activity Days per week: Not on file Minutes per session: Not on file Stress: Not on file Relationships Social connections Talks on phone: Not on file Gets together: Not on file Attends scientologist service: Not on file Active member of club or organization: Not on file Attends meetings of clubs or organizations: Not on file Relationship status: Not on file Other Topics Concern Not on file Social History Narrative Not on file Current Outpatient Medications Medication Sig Dispense Refill buPROPion (WELLBUTRIN XL) 300 MG 24 hr tablet Take 1 (one) tablet (300 mg total) by mouth daily . 30 tablet 11 levothyroxine (SYNTHROID, LEVOTHROID) 200 MCG tablet Take 1 (one) tablet (200 mcg total) by mouth once daily . 90 tablet 1 levothyroxine (SYNTHROID, LEVOTHROID) 25 MCG tablet Take 1 (one) tablet (25 mcg total) by mouth daily . 90 tablet 1 [START ON 05/09/2020] phentermine (ADIPEX-P) 37.5 mg tablet Take 1 (one) tablet (37.5 mg total) by mouth every morning Round 2 BMI 42.3, round 3 Start: 05/09/20. 30 tablet 0 SUMAtriptan (IMITREX) 50 MG tablet Take 1 (one) tablet (50 mg total) by mouth every 2 (two) hours as needed for migraine Max of 200 mg in 24hrs . 10 tablet 1 topiramate (TOPAMAX) 50 MG tablet Take 1 (one) tablet (50 mg total) by mouth 2 (two) times a day . 180 tablet 0 zolpidem (Ambien) 10 mg tablet Take 1 (one) tablet (10 mg total) by mouth nightly as needed for sleep . 30 tablet 0 No current facility-administered medications for this visit. BP 118/82 (BP Location: Right arm, Patient Position: Sitting, BP Cuff Size: X- large Adult) Pulse (!) 102 Temp 97.4 F (36.3 C) (Skin) Resp 17 Ht 5' 5 Wt 112.3 kg (247 lb 9.6 oz) LMP 04/11/2020 (Approximate) SpO2 97% BMI 41.20 kg/m Physical Exam Vitals signs and nursing note reviewed. Constitutional: Appearance: Normal appearance. She is well-developed. She is obese. HENT: Head: Normocephalic and atraumatic. Neck: Musculoskeletal: Normal range of motion. Vascular: No carotid bruit. Cardiovascular: Rate and Rhythm: Normal rate and regular rhythm. Pulses: Normal pulses. Heart sounds: Normal heart sounds. Pulmonary: Effort: Pulmonary effort is normal. Breath sounds: Normal breath sounds. Abdominal: General: Bowel sounds are normal. Palpations: Abdomen is soft. Musculoskeletal: Normal range of motion. Right lower leg: No edema. Left lower leg: No edema. Skin: General: Skin is warm and dry. Capillary Refill: Capillary refill takes less than 2 seconds. Neurological: Mental Status: She is alert and oriented to person, place, and time. Psychiatric: Attention and Perception: Attention normal. Mood and Affect: Mood is anxious and depressed. Speech: Speech normal. Behavior: Behavior normal. Thought Content: Thought content normal. Cognition and Memory: Cognition normal. Judgment: Judgment normal. OARRS/NARxCHECK Report Received and Assessed: 05/06/2020 Date controlled substance agreement signed: 03/07/2020 Date of last drug screen: 03/19/2020 Functional Assessment: No data found Problem List Items Addressed This Visit Endocrine Hypothyroidism Continue meds as prescribed, watch diet, and increase activity as able to tolerate. Other Obesity, Class II, BMI 35-39.9 Relevant Medications phentermine (ADIPEX-P) 37.5 mg tablet (Start on 05/09/2020) Anxiety and depression Continue meds as prescribed, watch diet, and increase activity as able to tolerate. Relevant Medications phentermine (ADIPEX-P) 37.5 mg tablet (Start on 05/09/2020) zolpidem (Ambien) 10 mg tablet Atypical eating disorder - Primary Diet: 9706-0116 calories per day with a goal of 120 g/day protein and 60 g/day carbs Exercise Prescription: 3 days per week for 30 minutes- Goal 150 minutes per week Counselor/Therapist: [facility] to eating patterns and macronutrient composition as well as activity levels discussed in detail Medications: Wellbutrin 300 daily, Topamax 50 BID, synthroid 225 and phentermine round 3 Follow-up: 4 weeks Relevant Medications phentermine (ADIPEX-P) 37.5 mg tablet (Start on 05/09/2020) zolpidem (Ambien) 10 mg tablet Sleep disturbance Medications like Ambien effects the central nervous system placing you at higher risk for fall, dependence, possible overdose, and . Reported side effects include dizziness, weakness, loss of coordination, daytime drowsiness, nasal congestion, nausea,vomiting, diarrhea, constipation, headache,muscle pain, confusion, walking and eating during sleep, and visual changes. Risk and benefit of taking this medication has been discussed. Relevant Medications zolpidem (Ambien) 10 mg tablet Return in about 4 weeks (around 06/03/2020) for Follow Up- weight . Discussed elevated Body Mass Index (BMI): Advised regular exercise. Discussed elevated Body Mass Index (BMI): Advised healthy and appropriate diet. Discussed elevated Body Mass Index (BMI): Nutrition referral. Rationale: Overweight (Findings) BMI This note was partially created using voice recognition software and is inherently subject to errors including those of syntax and sound-alike substitutions which may escape proofreading. In such instances, original meaning may be extrapolated by contextual derivation documented in this encounter* Rochelle Martinez LPC - 12/31/2019 2:07 PM EDT A user error has taken place documented in this encounter* Christa Sarmiento CNP - 08/29/2020 7:24 AM EST Chief Complaint Patient presents with Follow-up Atypical eating disorder. NOATAK: Pt who is a pleasant 34-year-old female presenting to the office for atypical eating disorder, sleep disturbance, migraine, and obesity Body mass index is 40.46 kg/m . 07/29/2020 Weight 234.8 Height 5'6 BMI 37.9 Waist circumference 40 Fat Mass 122.16 Resting energy expenditures 1711 Skeletal muscle mass 53.4 Total body water 37.7 Visceral fat 2.3 02/08/2020 weight 266.4 BMI 43 03/07/2020 weight 266.3 BMI 42.98 03/19/2020 weight 261.4 BMI 42.18 04/09/2020 weight 254.1 BMI 42.19 05/06/2020 weight 247.4 BMI 41.20 06/10/2020 weight 243.4 BMI 40.5 07/01/2020 weight 236.9 BMI 38.23 07/29/2020 weight 234.8 BMI 37.9 08/29/2020 weight 250.11 BMI 40.5 Diet: Is not tracking calories, eating 3 meals and snacking throughout the day Snacks: Snacking throughout the day Missing meals: Denies Alcohol use: denies any use Exercise: Has not been exercising Limitations: denies Energy: Tired in AM does not sleep well well, unable to take sleep aids due to childcare. Mood: Increased anxiety and depression related to significant other relationship. Volume cravings: Denies Sweet/Starch cravings: cravings at night, taco feliciano Binging Behavior: Denies Mood: Worse with added children and new dog Sleep: 4-5 hours per night, staying up to keep an eye on her boyfriend due to history of cheating. No coming home at night Current plan of care: Wellbutrin 300 daily, Topamax 50 daily, and Synthroid 200 daily Patient tolerates well, denies side effects. Impression: 1. Atypical eating disorder 2. Depression and anxiety 3. migraine 4. obesity Medications reviewed with patient. The following portions of the patient's history were reviewed and updated as appropriate: allergies, current medications, past family history, past medical history, past social history, past surgicalhistory and problem list Review of Systems Constitutional: Positive for fatigue. Negative for activity change, appetite change and unexpected weight change. HENT: Negative. Respiratory: Negative. Negative for cough, chest tightness and shortness of breath. Cardiovascular: Negative for chest pain and palpitations. Gastrointestinal: Negative for abdominal pain, constipation and diarrhea. Genitourinary: Negative. Musculoskeletal: Negative. Skin: Negative. Neurological: Negative for dizziness, weakness and headaches. Hematological: Negative for adenopathy. Psychiatric/Behavioral: The patient is nervous/anxious. Past Medical History: Diagnosis Date Anxiety Asthma Depression Disease of thyroid gland hypothyroid Hodgkin's lymphoma (HCC) 09/2011 Lymphoma, Hodgkin's (HCC) Preeclampsia previous Social History Socioeconomic History Marital status: Spouse name: Not on file Number of children: Not on file Years of education: Not on file Highest education level: Not on file Occupational History Not on file Social Needs Financial resource strain: Not on file Food insecurity Worry: Not on file Inability: Not on file Transportation needs Medical: Not on file Non-medical: Not on file Tobacco Use Smoking status: Never Smoker Smokeless tobacco: Never Used Substance and Sexual Activity Alcohol use: Yes Frequency: Monthly or less Drug use: Never Sexual activity: Yes Partners: Male Lifestyle Physical activity Days per week: Not on file Minutes per session: Not on file Stress: Not on file Relationships Social connections Talks on phone: Not on file Gets together: Not on file Attends scientologist service: Not on file Active member of club or organization: Not on file Attends meetings of clubs or organizations: Not on file Relationship status: Not on file Other Topics Concern Not on file Social History Narrative Not on file Current Outpatient Medications Medication Sig Dispense Refill buPROPion (WELLBUTRIN XL) 300 MG 24 hr tablet Take 1 (one) tablet (300 mg total) by mouth daily . 30 tablet 11 FLUoxetine (PROZAC) 20 MG capsule Take 1 (one) capsule (20 mg total) by mouth daily . 90 capsule 0 levothyroxine (SYNTHROID, LEVOTHROID) 200 MCG tablet Take 1 (one) tablet (200 mcg total) by mouth once daily . 90 tablet 1 SUMAtriptan (IMITREX) 50 MG tablet Take 1 (one) tablet (50 mg total) by mouth every 2 (two) hours as needed for migraine Max of 200 mg in 24hrs . 10 tablet 1 topiramate (TOPAMAX) 50 MG tablet Take 1 (one) tablet (50 mg total) by mouth 2 (two) times a day . 180 tablet 0 topiramate (TOPAMAX) 25 MG tablet Take 1 (one) tablet (25 mg total) by mouth 2 (two) times a day . 60 tablet 2 No current facility-administered medications for this visit. BP 108/75 (BP Location: Right arm, Patient Position: Sitting, BP Cuff Size: X- large Adult) Pulse 98 Temp 97 F (36.1 C) (Skin) Resp 17 Ht 5' 6 Wt 113.7 kg (250 lb 11.2 oz) LMP 08/27/2020 SpO2 98% BMI 40.46 kg/m Physical Exam Vitals signs and nursing note reviewed. Constitutional: Appearance: Normal appearance. She is well-developed. She is obese. HENT: Head: Normocephalic and atraumatic. Neck: Musculoskeletal: Normal range of motion. Vascular: No carotid bruit. Cardiovascular: Rate and Rhythm: Normal rate and regular rhythm. Pulses: Normal pulses. Heart sounds: Normal heart sounds. Pulmonary: Effort: Pulmonary effort is normal. Breath sounds: Normal breath sounds. Abdominal: General: Bowel sounds are normal. Palpations: Abdomen is soft. Musculoskeletal: Normal range of motion. Right lower leg: No edema. Left lower leg: No edema. Skin: General: Skin is warm and dry. Capillary Refill: Capillary refill takes less than 2 seconds. Neurological: Mental Status: She is alert and oriented to person, place, and time. Psychiatric: Attention and Perception: Attention normal. Mood and Affect: Mood is anxious and depressed. Speech: Speech normal. Behavior: Behavior normal. Thought Content: Thought content normal. Cognition and Memory: Cognition normal. Judgment: Judgment normal. Problem List Items Addressed This Visit Cardiovascular and Mediastinum Migraine I have increased your Topamax to 75 mg twice daily to help with migraine and cravings Relevant Medications topiramate (TOPAMAX) 25 MG tablet Other Obesity, Class II, BMI 35-39.9 Continue the currently prescribed calorie load and composition Anxiety and depression Continue meds as prescribed, watch diet, and increase activity as able to tolerate. Atypical eating disorder - Primary Diet: 8947-3704 calories per day with a goal of 120 g/day protein and 60 g/day carbs Exercise Prescription: 3 days per week for 30 minutes- Goal 150 minutes per week Counselor/Therapist: Complete your nutrition evaluation and education at [facility] Lifestylechanges to eating patterns and macronutrient composition as well as activity levels discussed in detail Medications: Wellbutrin 300 daily, Topamax 75 BID, synthroid 225 Follow-up: 4 weeks Return in about 4 weeks (around 09/26/2020). Discussed elevated Body Mass Index (BMI): Advised regular exercise. Discussed elevated Body Mass Index (BMI): Advised healthy and appropriate diet. Discussed elevated Body Mass Index (BMI): Nutrition referral. Rationale: Overweight (Findings) BMI This note was partially created using voice recognition software and is inherently subject to errors including those of syntax and sound-alike substitutions which may escape proofreading. In such instances, original meaning may be extrapolated by contextual derivation documented in this encounter* Christa Sarmiento CNP - 02/08/2020 10:20 AM EDT INITIAL OBESITY OUTPATIENT HPI Patient presents to the office today for initial consultation for weight loss related to obesity. Weight 266.4 Height 5'6 BMI 43 Waist circumference 48 Fat Mass 41.54 Resting energy expenditures 1828 Skeletal muscle mass 60.5 Total body water 42.5 Visceral fat 4.5 Obesity History Weight in late teens: 180 lb. Period of greatest weight gain: 100 lb during early adult years- 30 year of age Lowest adult weight: 140 Highest adult weight: 280 Amount of time at present weight: 260 lb. For one year Years of weight struggles: entire life History of Weight Loss Efforts Greatest amount of weight lost: 75 lb over 12 months- due to cancer Amount of time that loss was maintained: 12 months Circumstances associated with regain of weight: Successful weight loss techniques attempted: prescription appetite suppressants: phentermine and cutting out fast food and soda Unsuccessful weight loss techniques attempted: denies Current Exercise Habits none Current Eating Habits Number of regular meals per day: 3 Number of snacking episodes per day: 2 Who shops for food? patient Who prepares food? patient Who eats with patient? patient, son, daughter and boyfriend Binge behavior?: yes 2-3 times per week at nighttime after work Purge behavior? no Anorexic behavior? no Eating precipitated by stress? yes - work stress Guilt feelings associated with eating? yes Food budget 300 Food insecurities in the last 12 months? no Other Potential Contributing Factors Use of alcohol: average 1-2 drinks/week Use of medications that may cause weight gain none History of past abuse? none Psych History: anxiety, depression and obesity Comorbidities: hypothyroidism Sleep quality: Bed at 0100, wakes at 0745 during work week. Positive for snoring The following portions of the patient's history were reviewed and updated as appropriate: allergies, current medications and problem list. Family History Problem Relation Age of Onset Depression Mother Hypothyroidism Mother Diabetes Father Depression Father Chiari malformation Father Alcohol abuse Maternal Grandfather Colon cancer Maternal Grandfather Diabetes Paternal Grandmother Colon cancer Paternal Grandmother Social History Socioeconomic History Marital status: Spouse name: Not on file Number of children: Not on file Years of education: Not on file Highest education level: Not on file Occupational History Not on file Social Needs Financial resource strain: Not on file Food insecurity Worry: Not on file Inability: Not on file Transportation needs Medical: Not on file Non-medical: Not on file Tobacco Use Smoking status: Never Smoker Smokeless tobacco: Never Used Substance and Sexual Activity Alcohol use: Never Frequency: Never Drug use: Never Sexual activity: Yes Partners: Male Lifestyle Physical activity Days per week: Not on file Minutes per session: Not on file Stress: Not on file Relationships Social connections Talks on phone: Not on file Gets together: Not on file Attends scientologist service: Not on file Active member of club or organization: Not on file Attends meetings of clubs or organizations: Not on file Relationship status: Not on file Other Topics Concern Not on file Social History Narrative Not on file Past Surgical History: Procedure Laterality Date SECTION, LOW TRANSVERSE Two prior CHEMOTHERAPY Hodgkins Lymphoma CHOLECYSTECTOMY RADIATION chest for Hodgkins Lyphoma TONSILLECTOMY AND ADENOIDECTOMY No Known Allergies Patient's Medications New Prescriptions No medications on file Previous Medications BUPROPION (WELLBUTRIN SR) 150 MG 12 HR TABLET Take 1 (one) tablet (150 mg total) by mouth 2 (two) times a day . IBUPROFEN (ADVIL,MOTRIN) 800 MG TABLET Take 800 mg by mouth every 6 (six) hours as needed for pain . LEVOTHYROXINE (SYNTHROID, LEVOTHROID) 200 MCG TABLET Take 1 (one) tablet (200 mcg total) by mouth once daily . LEVOTHYROXINE (SYNTHROID, LEVOTHROID) 25 MCG TABLET Take 1 (one) tablet (25 mcg total) by mouth daily . SUMATRIPTAN (IMITREX) 50 MG TABLET Take 1 (one) tablet (50 mg total) by mouth every 2 (two) hours as needed for migraine Max of 200 mg in 24hrs . TOPIRAMATE (TOPAMAX) 25 MG TABLET Take 1 (one) tablet (25 mg total) by mouth daily . Modified Medications No medications on file Discontinued Medications No medications on file Review of Systems Review of Systems Constitutional: Positive for appetite change, fatigue and unexpected weight change. Negative for activity change. HENT: Negative. Respiratory: Negative. Negative for cough, chest tightness and shortness of breath. Cardiovascular: Negative for chest pain and palpitations. Gastrointestinal: Negative for abdominal pain, constipation and diarrhea. Genitourinary: Negative. Musculoskeletal: Negative. Skin: Negative. Neurological: Negative for dizziness, weakness and headaches. Hematological: Negative for adenopathy. Psychiatric/Behavioral: The patient is nervous/anxious. Vitals: 02/08/20 1026 BP: 108/72 BP Location: Right arm Patient Position: Sitting BP Cuff Size: X-large Adult Pulse: 93 Resp: 16 Temp: 97.5 F (36.4 C) TempSrc: Skin SpO2: 97% Weight: 120.8 kg (266 lb 6.4 oz) Height: 5' 6 Body mass index is 43 kg/m . Physical Exam Physical Exam Vitals signs and nursing note reviewed. Constitutional: Appearance: Normal appearance. She is well-developed. She is obese. HENT: Head: Normocephalic and atraumatic. Neck: Musculoskeletal: Normal range of motion. Vascular: No carotid bruit. Cardiovascular: Rate and Rhythm: Normal rate and regular rhythm. Pulses: Normal pulses. Heart sounds: Normal heart sounds. Pulmonary: Effort: Pulmonary effort is normal. Breath sounds: Normal breath sounds. Abdominal: General: Bowel sounds are normal. Palpations: Abdomen is soft. Musculoskeletal: Normal range of motion. Right lower leg: No edema. Left lower leg: No edema. Skin: General: Skin is warm and dry. Capillary Refill: Capillary refill takes less than 2 seconds. Neurological: Mental Status: She is alert and oriented to person, place, and time. Psychiatric: Attention and Perception: Attention normal. Mood and Affect: Mood is anxious and depressed. Speech: Speech normal. Behavior: Behavior normal. Thought Content: Thought content normal. Cognition and Memory: Cognition normal. Judgment: Judgment normal. Assessment/Plan Problem List Items Addressed This Visit Endocrine Hypothyroidism Continue meds as prescribed, watch diet, and increase activity as able to tolerate. It is essential that you take your medication daily as prescribed to maintain a stable thyroid level to help with your anxiety and weight Relevant Orders TSH with Reflex Free T4 (Completed) Other Obesity, Class II, BMI 35-39.9 Relevant Orders Insulin, Total (Completed) Lipoprotein NMR Anxiety and depression Continue meds as prescribed, watch diet, and increase activity as able to tolerate. Weight gain - Primary Diet: 0528-5840 calories per day with a goal of 120 g/day protein and 60 g/day carbs Exercise Prescription: 3 days per week for 30 minutes- Goal 150 minutes per week Counselor/Therapist: I have placed a referral to the [facility], their office will call you to schedule Behavioral Lifestylechanges to eating patterns and macronutrient composition as well as activity levels discussed in detail Medications: Wellbutrin 300 daily, Topamax 25 daily, synthroid Follow-up: 2 weeks Relevant Orders Ambulatory referral to Nutrition Services Insulin, Total (Completed) Lipoprotein NMR CBC and Differential (Completed) Comprehensive Metabolic Panel (Completed) documented in this encounter* Radha Pitts RN - 11/10/2018 9:25 AM EDT Gave pt discharge instructions. PT verbalizes understanding. Pt given AVS printout. Pt dc'd to home. in this encounter* Christa Sarmiento CNP - 07/01/2020 7:11 AM EST Chief Complaint Patient presents with Follow-up Atypical eating disorder. NOATAK: Pt who is a pleasant 34-year-old female presenting to the office for atypical eating disorder, sleep disturbance, migraine, and obesity Body mass index is 38.24 kg/m . 07/01/2020 Weight 236.9 Height 5'6 BMI 38.23 Waist circumference 40 Fat Mass 123.72 Resting energy expenditures 1719 Skeletal muscle mass 55.9 Total body water 38.8 Visceral fat 2.3 02/08/2020 weight 266.4 BMI 43 03/07/2020 weight 266.3 BMI 42.98 03/19/2020 weight 261.4 BMI 42.18 04/09/2020 weight 254.1 BMI 42.19 05/06/2020 weight 247.4 BMI 41.20 06/10/2020 weight 243.4 BMI 40.5 07/01/2020 weight 236.9 BMI 38.23 Diet: Tracking calories with average 1710-4109 calories daily. Goal 9041-1730 calories daily. Good someday's at tracking bad at others. Drinking diet pepsi Snacks: Denies snacking Missing meals: 3 meals/day Alcohol use: denies any use Exercise: working out at home with apps and stairs 2-3 times per week Limitations: denies Energy: Tired in AM does not sleep well well, unable to take sleep aids due to childcare. Mood: Increased anxiety and depression related to significant other relationship. Volume cravings: Denies Sweet/Starch cravings: cravings at night, improving Binging Behavior: Denies Mood: Improving Sleep: 4-5 hours per night, staying up to keep an eye on her boyfriend due to history of cheating. No coming home at night. Using Ambien to help with sleep as needed Current plan of care: Wellbutrin 300 daily, Topamax 50 daily, and Synthroid 200 daily Patient tolerates well, denies side effects. Impression: 1. Atypical eating disorder 2. Depression and anxiety 3. Sleep disturbance 4. hypothyroidism 5. obesity Medications reviewed with patient. The following portions of the patient's history were reviewed and updated as appropriate: allergies, current medications, past family history, past medical history, past social history, past surgicalhistory and problem list Review of Systems Constitutional: Positive for fatigue. Negative for activity change, appetite change and unexpected weight change. HENT: Negative. Respiratory: Negative. Negative for cough, chest tightness and shortness of breath. Cardiovascular: Negative for chest pain and palpitations. Gastrointestinal: Negative for abdominal pain, constipation and diarrhea. Genitourinary: Negative. Musculoskeletal: Negative. Skin: Negative. Neurological: Negative for dizziness, weakness and headaches. Hematological: Negative for adenopathy. Psychiatric/Behavioral: The patient is nervous/anxious. Past Medical History: Diagnosis Date Anxiety Asthma Depression Disease of thyroid gland hypothyroid Hodgkin's lymphoma (HCC) 09/2011 Lymphoma, Hodgkin's (HCC) Preeclampsia previous Social History Socioeconomic History Marital status: Spouse name: Not on file Number of children: Not on file Years of education: Not on file Highest education level: Not on file Occupational History Not on file Social Needs Financial resource strain: Not on file Food insecurity Worry: Not on file Inability: Not on file Transportation needs Medical: Not on file Non-medical: Not on file Tobacco Use Smoking status: Never Smoker Smokeless tobacco: Never Used Substance and Sexual Activity Alcohol use: Never Frequency: Never Drug use: Never Sexual activity: Yes Partners: Male Lifestyle Physical activity Days per week: Not on file Minutes per session: Not on file Stress: Not on file Relationships Social connections Talks on phone: Not on file Gets together: Not on file Attends scientologist service: Not on file Active member of club or organization: Not on file Attends meetings of clubs or organizations: Not on file Relationship status: Not on file Other Topics Concern Not on file Social History Narrative Not on file Current Outpatient Medications Medication Sig Dispense Refill buPROPion (WELLBUTRIN XL) 300 MG 24 hr tablet Take 1 (one) tablet (300 mg total) by mouth daily . 30 tablet 11 FLUoxetine (PROZAC) 20 MG capsule Take 1 (one) capsule (20 mg total) by mouth daily . 90 capsule 0 levothyroxine (SYNTHROID, LEVOTHROID) 200 MCG tablet Take 1 (one) tablet (200 mcg total) by mouth once daily . 90 tablet 1 SUMAtriptan (IMITREX) 50 MG tablet Take 1 (one) tablet (50 mg total) by mouth every 2 (two) hours as needed for migraine Max of 200 mg in 24hrs . 10 tablet 1 topiramate (TOPAMAX) 50 MG tablet Take 1 (one) tablet (50 mg total) by mouth 2 (two) times a day . 180 tablet 0 No current facility-administered medications for this visit. BP 121/85 (BP Location: Right arm, Patient Position: Sitting, BP Cuff Size: X- large Adult) Pulse 98 Temp 97.2 F (36.2 C) (Skin) Resp 18 Ht 5' 6 Wt 107.5 kg (236 lb 14.4 oz) LMP 06/20/2020 SpO2 99% BMI 38.24 kg/m Physical Exam Vitals signs and nursing note reviewed. Constitutional: Appearance: Normal appearance. She is well-developed. She is obese. HENT: Head: Normocephalic and atraumatic. Neck: Musculoskeletal: Normal range of motion. Vascular: No carotid bruit. Cardiovascular: Rate and Rhythm: Normal rate and regular rhythm. Pulses: Normal pulses. Heart sounds: Normal heart sounds. Pulmonary: Effort: Pulmonary effort is normal. Breath sounds: Normal breath sounds. Abdominal: General: Bowel sounds are normal. Palpations: Abdomen is soft. Musculoskeletal: Normal range of motion. Right lower leg: No edema. Left lower leg: No edema. Skin: General: Skin is warm and dry. Capillary Refill: Capillary refill takes less than 2 seconds. Neurological: Mental Status: She is alert and oriented to person, place, and time. Psychiatric: Attention and Perception: Attention normal. Mood and Affect: Mood is anxious and depressed. Speech: Speech normal. Behavior: Behavior normal. Thought Content: Thought content normal. Cognition and Memory: Cognition normal. Judgment: Judgment normal. Problem List Items Addressed This Visit Endocrine Hypothyroidism Continue meds as prescribed, watch diet, and increase activity as able to tolerate. Other Obesity, Class II, BMI 35-39.9 Continue the currently prescribed calorie load and composition Relevant Orders Ambulatory referral to Bariatrics Anxiety and depression Continue meds as prescribed, watch diet, and increase activity as able to tolerate. Atypical eating disorder Diet: 2747-3309 calories per day with a goal of 120 g/day protein and 60 g/day carbs Exercise Prescription: 3 days per week for 30 minutes- Goal 150 minutes per week Counselor/Therapist: Complete your nutrition evaluation and education at [facility] Behavioral Lifestylechanges to eating patterns and macronutrient composition as well as activity levels discussed in detail Medications: Wellbutrin 300 daily, Topamax 50 BID, synthroid 225 Follow-up: 4 weeks Relevant Orders Ambulatory referral to Bariatrics Return in about 4 weeks (around 07/29/2020) for Follow Up- weight . Discussed elevated Body Mass Index (BMI): Advised regular exercise. Discussed elevated Body Mass Index (BMI): Advised healthy and appropriate diet. Discussed elevated Body Mass Index (BMI): Nutrition referral. Rationale: Overweight (Findings) BMI This note was partially created using voice recognition software and is inherently subject to errors including those of syntax and sound-alike substitutions which may escape proofreading. In such instances, original meaning may be extrapolated by contextual derivation documented in this encounter* Evi Pacheco MD - 11/12/2020 10:13 AM EDT Aurora Mendez is a 35 y.o. female Assessment/Plan: Problem List Items Addressed This Visit Endocrine Hypothyroidism Will check your labs today. We discussed taking all of our pills on one day to help with adherence.We discussed risk of uncontrolled hypothyroidism. This will affect your weight loss, mood and your menstrual cycle. Relevant Orders TSH T4, Free Other Anxiety and depression We discussed risk of libido changes with SSRI's. You did not have this affect on the 20 mg dose, soI recommend that you go back to that dose. I have prescribed Buspar to be taken as needed or daily if you'd like. We discussed mindfulness techniques as well. The Wellbutrin can worsen your anxiety, consider discontinuing and trying another weight loss medication. Relevant Medications busPIRone (BUSPAR) 5 MG tablet Annual physical exam - Primary -Counseled on healthy diet. -Counseled on importance of exercise - 150mins/ week of moderate activity as tolerated -Lab screening for hyperlipidemia, A1C for diabetes ordered -Discussed pap recommendations/follow up: will complete next visit due to menses -Discussed breast cancer screening: breast exam completed today -Discussed colon cancer screening: age 52 Relevant Orders CBC and Differential Comprehensive Metabolic Panel Hemoglobin A1c Lipid Panel Hepatitis C Antibody Return in about 6 months (around 05/14/2021) for Thyroid f/u. Aurora Daniel Menedz is a 35 y.o. female who presents for Chief Complaint Patient presents with Annual Exam Gynecologic Exam Last Pap 2019 neg HPI 35 y.o. female presents for preventative health exam. Any concerns/complaints: increased anxiety and panic attacks. Increased the Prozac but this has affected her libido so she has since stop taking it. She did have a panic attack in a restaurant. When things are good in the household, her symptoms are better but when things are bad, its hard for her to function. She has been having issues with taking her medications. She has gained weight. Hoping to get some exercise now that weather is improving. Any Family history of breast cancer, uterine cancer or ovarian cancer? no Any family history of colon cancer? no obstetrics & gynecology Last menstrual period: 11/12/2020 Patient has periods (heavy, regular, painful): irregular, two weeks early now. Was better a few months ago. No change in flow. Sexually active ( control): Yes Any breast concerns? no Last mammogram: up to date Last pap smear (HPV): 2018 Last DEXA scan: n/a Last Colonoscopy: n/a HIV testing (age 15-65): up to date HCV testing (if born b/w [id number]): ordered Depression screen: positive STD screening: up to date Immunizations: Flu: up to date Tdap: up to date Pneumonia shot: n/a Shingrix or Zostavax: n/a Patient Active Problem List Diagnosis Hodgkin's disease (HCC) Obesity, Class II, BMI 35-39.9 Hypothyroidism Leg swelling Anxiety and depression Migraine Atypical eating disorder Sleep disturbance Vaginal bleeding Annual physical exam Past Surgical History: Procedure Laterality Date SECTION, LOW TRANSVERSE Two prior CHEMOTHERAPY Hodgkins Lymphoma CHOLECYSTECTOMY RADIATION chest for Hodgkins Lyphoma TONSILLECTOMY AND ADENOIDECTOMY Family History Problem Relation Age of Onset Depression Mother Hypothyroidism Mother Diabetes Father Depression Father Chiari malformation Father Alcohol abuse Maternal Grandfather Colon cancer Maternal Grandfather Diabetes Paternal Grandmother Colon cancer Paternal Grandmother Social History Tobacco Use Smoking status: Never Smoker Smokeless tobacco: Never Used Substance Use Topics Alcohol use: Yes Frequency: Monthly or less Drug use: Never Current Outpatient Medications Medication Sig Dispense Refill buPROPion (WELLBUTRIN XL) 300 MG 24 hr tablet Take 1 (one) tablet (300 mg total) by mouth daily . 30 tablet 11 FLUoxetine (PROZAC) 40 MG capsule Take 1 (one) capsule (40 mg total) by mouth daily . 90 capsule 0 levothyroxine (SYNTHROID, LEVOTHROID) 200 MCG tablet Take 1 (one) tablet (200 mcg total) by mouth once daily . 90 tablet 1 SUMAtriptan (IMITREX) 50 MG tablet Take 1 (one) tablet (50 mg total) by mouth every 2 (two) hours as needed for migraine Max of 200 mg in 24hrs . 10 tablet 1 topiramate (TOPAMAX) 25 MG tablet Take 1 (one) tablet (25 mg total) by mouth 2 (two) times a day . 60 tablet 2 topiramate (TOPAMAX) 50 MG tablet Take 1 (one) tablet (50 mg total) by mouth 2 (two) times a day . 180 tablet 0 busPIRone (BUSPAR) 5 MG tablet Take 1 (one) tablet (5 mg total) by mouth 3 (three) times a day . 90tablet 0 No current facility-administered medications for this visit. Review of Systems Constitutional: Negative for appetite change, diaphoresis, fatigue and unexpected weight change. Respiratory: Negative for shortness of breath. Cardiovascular: Negative for chest pain and palpitations. Gastrointestinal: Negative. Endocrine: Negative for cold intolerance and heat intolerance. Genitourinary: Positive for menstrual problem. Skin: Negative for rash and wound. Neurological: Negative for dizziness and headaches. Psychiatric/Behavioral: Positive for decreased concentration. Negative for sleep disturbance. The patient is nervous/anxious. Physical Exam: BP 116/80 (BP Location: Right arm, Patient Position: Sitting, BP Cuff Size: X- large Adult) Pulse 96 Temp 97.9 F (36.6 C) (Temporal) Resp 18 Ht 5' 6 Wt 119.3 kg (263 lb 1.6 oz) LMP 11/12/2020 SpO2 97% BMI 42.47 kg/m Wt Readings from Last 3 Encounters: 11/12/20 119.3 kg (263 lb 1.6 oz) 08/29/20 113.7 kg (250 lb 11.2 oz) 08/04/20 105.7 kg (233 lb) BP Readings from Last 3 Encounters: 11/12/20 116/80 08/29/20 108/75 08/04/20 138/83 Physical Exam Vitals signs reviewed. Constitutional: General: She is not in acute distress. Appearance: She is well-developed. She is not diaphoretic. Eyes: Conjunctiva/sclera: Conjunctivae normal. Neck: Musculoskeletal: Normal range of motion. Thyroid: No thyromegaly. Vascular: No carotid bruit. Cardiovascular: Rate and Rhythm: Normal rate and regular rhythm. Heart sounds: Normal heart sounds. No murmur. Pulmonary: Effort: Pulmonary effort is normal. No respiratory distress. Breath sounds: Normal breath sounds. Chest: Breasts: Breasts are symmetrical. Right: Normal. Left: Normal. Abdominal: General: There is no distension. Palpations: Abdomen is soft. Musculoskeletal: Right lower leg: No edema. Left lower leg: No edema. Lymphadenopathy: Cervical: No cervical adenopathy. Upper Body: Right upper body: No supraclavicular, axillary or pectoral adenopathy. Left upper body: No supraclavicular, axillary or pectoral adenopathy. Skin: Capillary Refill: Capillary refill takes less than 2 seconds. Neurological: Mental Status: She is alert. Psychiatric: Mood and Affect: Mood normal. Behavior: Behavior normal. Health Maintenance Due Topic Date Due Pap Smear Never done COVID-19 Vaccine (1) Never done Hepatitis C Screening Never done Please note: Portions of this chart may have been created with [employer] voice recognition software. Occasional wrong-word or sound-like substitutions may have occurred due to inherent limitations of the voice recognition software. Please read the chart carefully and recognize, using context, where the substitutions have occurred. For any new medications prescribed today, patient was educated about indications for the medication, how to take the medication and potential side effects of the medications. documented in this encounter Reason for Referral Status Reason Specialty Diagnoses / Procedures Referred By Contact Referred To Contact Pending Review Radiology Diagnoses Lymphadenopathy Procedures US Breast Right Complete Evi Pacheco MD [address] [place], [place] [id number] Status Reason Specialty Diagnoses / Procedures Referred By Contact Referred To Contact Closed Behavorist (Outpatient Social Work) Diagnoses Anxiety and depression Evi Pacheco MD [address] [place], [place] [id number] Status Reason Specialty Diagnoses / Procedures Referred By Contact Referred To Contact Authorized Specialty Services Required/Patient 's Best Interest Cardiology Diagnoses Leg swelling Procedures Ultrasound duplex venous leg left Evi Pacheco MD [address] [place], [place] [id number] [address] [place] [address] Status Reason Specialty Diagnoses / Procedures Referred By Contact Referred To Contact Authorized Specialty Services Required/Patient 's Best Interest Radiology Diagnoses Lymphadenopathy Procedures Mammography Diagnostic Right Evi Pacheco MD [address] [place] [id number] Status Reason Specialty Diagnoses / Procedures Referred By Contact Referred To Contact Pending Review Specialty Services Required/Patien t's Best Interest Radiology Diagnoses Lymphadenopathy Procedures US Breast Right Limited US Breast Right Complete Evi Pacheco MD [address] [place] [id number] Status Reason Specialty Diagnoses / Procedures Referred By Contact Referred To Contact Pending Review Specialty Services Required/Patien t's Best Interest Radiology Diagnoses Lymphadenopathy Procedures Mammography Diagnostic Steve Bilateral Mammography Diagnostic Right Evi Pacheco MD [address] [place] [id number] Status Reason Specialty Diagnoses / Procedures Re ferred By Contact Referred To Contact Authorized Radiology Diagnoses Vaginal bleeding Procedures US Transvaginal Evi Pacheco MD [address] [facility] [address] [place] [id number] Status Reason Specialty Diagnoses / Procedures Referred By Contact Referred To Contact Authorized Specialty Services Required/Patien t's Best Interest Dietitian/Nutri tionist / Nutrition Diagnoses Weight gain Christa Sarmiento CNP [address] [place] [id number] Status Reason Specialty Diagnoses / Procedures Referred By Contact Referred To Contact Authorized Specialty Services Required/Patie nt's Best Interest Family Medicine / Bariatrics Diagnoses Atypical eating disorder Obesity, Class II, BMI 35-39.9 Christa Sarmiento, LATONIA [address] [place] [address] [place] [phone] Lamberto Russo MD [address] [place] [address] [address] [place] [address] Specialty Diagnoses / Procedures Referred By Contfantasma t Referred To Contact Sleep Medicine Diagnoses Sleep disorder Lamberto Russo MD [address] [facility] [address] [place] [address] [facility] [place] [address] Referral ID Status Reason Start Date Expiration Date Visits Requested Visits Authorized [id number] Authorized Specialty Services Required/Pat ient's Best Interest 04/14/2021 04/14/2022 1 1 Specialty Diagnoses / Procedures Referred By Contac t Referred To Contact Pulmonology Diagnoses Dyspnea, unspecified type Procedures Complete PFT with Pre and Post Bronchodilator volumes and dlco Lamberto Russo MD [address] [place] [address] Referral ID Status Reason Start Date Expiration Date V isits Requested Visits Authorized [id number] Authorized 04/14/2021 04/14/2022 1 1 Specialty Diagnoses / Procedures Referred By Contac t Referred To Contact Radiology Diagnoses Elevated LFTs Procedures US Abdomen Limited Study Lamberto Russo MD [address] [place] [address] Referral ID Status Reason Start Date Expiration Date V isits Requested Visits Authorized [id number] Authorized 04/14/2021 04/14/2022 1 1 Specialty Diagnoses / Procedures Referred By Contac t Referred To Contact Nutrition Diagnoses BMI 45.0-49.9, adult (HCC) Lamberto Russo MD [address] [place] [address] [facility] Nutrition [address] [address] Referral ID Status Reason Start Date Expiration Date Visits Requested Visits Authorized [id number] Authorized Specialty Services Required/Pat ient's Best Interest 04/14/2021 04/14/2022 10 10 Specialty Diagnoses / Procedures Referred By Contac t Referred To Contact Rehabilitation Diagnoses Lumbar radiculopathy Lamberto Russo MD [address] [place] [id number] [facility] [address] [place] [address] Referral ID Status Reason Start Date Expiration Date Visits Requested Visits Authorized [id number] Authorized Specialty Services Required/Pat ient's Best Interest 04/28/2021 04/28/2022 1 1 Specialty Diagnoses / Procedures Referred By Contac t Referred To Contact General Surgery Diagnoses Rectal bleeding Evi Pacheco MD [address] [place] [id number] Kyra Saavedra MD [facility] Yariel Boone [address] [address] Referral ID Status Reason Start Date Expiration Date V isits Requested Visits Authorized [id number] Authorized 08/28/2021 08/28/2022 1 1 Specialty Diagnoses / Procedures Referred By Contac t Referred To Contact Betina Pop CNP [address] [place] [address] Referral ID Status Reason Start Date Expiration Date Visits Re quested Visits Authorized [id number] Closed 1 1 Referral ID Status Reason Start Date Expiration Date Visits Re quested Visits Authorized [id number] Closed 1 1 Specialty Diagnoses / Procedures Referred By Contac t Referred To Contact Diagnoses Insulin resistance Betina Pop, [employer] [address] [address] Referral ID Status Reason Start Date Expiration Date Visits Re quested Visits Authorized [id number] Closed 1 1 Referral ID Status Reason Start Date Expiration Date V isits Requested Visits Authorized [id number] Pending Review 1 1 Referral ID Status Reason Start Date Expiration Date V isits Requested Visits Authorized [id number] Pending Review 03/06/2024 03/06/2025 1 1 Instructions * Patient Instructions* Evi Pacheco MD - 08/24/2019 8:43 AM EST I want you to call and schedule your mammogram. [facility] ( [facility]) [address] [place], [place] [id number] Call and schedule you appointment. I have ordered a Ultrasound of the left leg because of the swelling. I will call you with your labs as well. documented in this encounter* Patient Instructions* Christa Sarmiento, LATONIA - 03/07/2020 4:16 PM EDT Problem List Items Addressed This Visit Endocrine Insulin resistance Other Obesity, Class II, BMI 35-39.9 Continue the currently prescribed calorie load and composition Relevant Medications topiramate (TOPAMAX) 50 MG tablet phentermine (ADIPEX-P) 37.5 mg tablet Atypical eating disorder - Primary Diet: 4199-5715 calories per day with a goal of 120 g/day protein and 60 g/day carbs Exercise Prescription: 3 days per week for 30 minutes- Goal 150 minutes per week Counselor/Therapist: [facility] to eating patterns and macronutrient composition as well as activity levels discussed in detail Medications: Wellbutrin 300 daily, Topamax 25 daily, synthroid 225. Topamax increased to 50 twice daily Follow-up: 2 weeks Relevant Medications zolpidem (Ambien) 10 mg tablet phentermine (ADIPEX-P) 37.5 mg tablet Sleep disturbance Trial the Ambien to see if this helps with your sleep patterns. Take this around 10 am. Relevant Medications zolpidem (Ambien) 10 mg tablet Diet and Exercise for Metabolic Syndrome: Care Instructions Your Care Instructions Metabolic syndrome is the name for a group of health problems. It includes having too much fat around your waist and high blood pressure. It also includes high triglycerides, high blood sugar, and low levels of healthy (HDL) cholesterol. These problems make it more likely you will have a heart attack or stroke or get diabetes. Your family history (your genes) can cause metabolic syndrome. So can unhealthy eating habits and not getting enough exercise. You can help lower your risk of heart attack, stroke, and diabetes if you eat healthy foods and getmore exercise. It may be hard to make these lifestyle changes. But even small changes can help. Follow-up care is a lam part of your treatment and safety. Be sure to make and go to all appointments, and call your doctor if you are having problems. It's also a good idea to know your test resultsand keep a list of the medicines you take. How can you care for yourself at home? Eat more fruits and vegetables Fruits and vegetables have nutrients to help protect you from heart disease and high blood pressure. They are low in fat and high in fiber. Dark green, orange, and yellow ones are the healthiest. Keep lots of vegetables ready for snacks. Buy fruit that is in season. Then put it where you can see it so you will want to eat it. Cook dishes that have a lot of vegetables. Soups and stir-fries are good choices. Limit saturated and trans fats Read food labels, and try to avoid saturated and trans fats. They increase your risk of heart disease. Use olive or canola oil when you cook. Bake, broil, grill, or steam foods. Avoid fried foods. Limit how much high-fat meat you eat. This includes hot dogs and sausages. When you prepare meat, cut off all the fat. You can replace high-fat meat with fish and skinless poultry. You can also try products made from soybeans, like tofu. Soybeans may be very good for your heart. Choose low-fat or fat-free milk and dairy products. Eat foods high in fiber Foods high in fiber may reduce your cholesterol. And they may give you important vitamins and minerals. Good examples are oatmeal, cooked dried beans, brown rice, citrus fruits, and apples. Eat whole-grain breads and cereals. They have more fiber than white bread or pastries. Limit high-sugar foods Limit foods and drinks that are high in sugar. Some examples are soda pop, sugar-sweetened fruit drinks, candy, and many desserts. Limit the amount of sugar, honey, and other sweeteners that you add to food and drinks. Choose water instead of soda pop or other sugar-sweetened drinks. Limit fruit juice. Limit salt and sodium You can help lower your blood pressure if you limit salt and sodium. If you take the salt shaker off the table, it may be easier to use less salt. You can also try using half the salt in a recipe. And you can avoid adding salt to cooking water for pasta, rice, and potatoes. Try to eat fewer snacks, fast foods, and other high-salt, processed foods. Check labels so you knowhow much sodium a food has. Choose canned goods (soups, vegetables, and beans) that are low in sodium. Get regular exercise Get more exercise. Make sure your doctor knows when you start a new exercise program. Even small amounts of exercise will help you get stronger and have more energy. It can also help you manage your weight and your stress. Walking is a good choice. Little by little, increase the amount you walk every day. Try for at least 30 minutes on most days of the week. Where can you learn more? Log into your personal health record on [email or web address]://[email or web address] and enter H930 in the Education box to learn more about Diet and Exercise for Metabolic Syndrome: Care Instructions. Current as of: April 05, 2019 Content Version: 12.5 [employer]. Care instructions adapted under license by your healthcare professional. If you have questions about a medical condition or this instruction, always ask your healthcare professional. [employer] disclaims any warranty or liability for your use of this information. documented in this encounter* Patient Instructions* Christa Sarmiento CNP - 07/29/2020 7:15 AM EST Problem List Items Addressed This Visit Endocrine Hypothyroidism You will need to have your thyroid level rechecked to make sure you are on the correct dose of levothyroxine. Relevant Orders TSH with Reflex Free T4 Other Obesity, Class II, BMI 35-39.9 Continue the currently prescribed calorie load and composition Relevant Medications topiramate (TOPAMAX) 50 MG tablet Anxiety and depression Continue meds as prescribed, watch diet, and increase activity as able to tolerate. Atypical eating disorder - Primary Diet: 4505-9299 calories per day with a goal of 120 g/day protein and 60 g/day carbs Exercise Prescription: 3 days per week for 30 minutes- Goal 150 minutes per week Counselor/Therapist: Complete your nutrition evaluation [facility] at [facility] to eating patterns and macronutrient composition as well as activity levels discussed in detail Medications: Wellbutrin 300 daily, Topamax 50 BID, synthroid 225 Follow-up: 4 weeks Learning About Cutting Calories How do calories affect your weight? Food gives your body energy. Energy from the food you eat is measured in calories. This energy keeps your heart beating, your brain active, and your muscles working. Your body needs a certain number of calories each day. After your body uses the calories it needs, it stores extra calories as fat. To lose weight safely, you have to eat fewer calories while eating in a healthy way. How many calories do you need each day? The more active you are, the more calories you need. When you are less active, you need fewer calories. How many calories you need each day also depends on several things, including your age and whether you are male or female. Here are some general guidelines for adults: Less active women and older adults need 1,600 to 2,000 calories each day. Active women and less active men need 2,000 to 2,400 calories each day. Active men need 2,400 to 3,000 calories each day. How can you cut calories and eat healthy meals? Whole grains, vegetables and fruits, and dried beans are good lower-calorie foods. They give you lots of nutrients and fiber. And they fill you up. Sweets, energy drinks, and soda pop are high in calories. They give you few nutrients and no fiber.Try to limit soda pop, fruit juice, and energy drinks. Drink water instead. Some fats can be part of a healthy diet. But cutting back on fats from highly processed foods like fast foods and many snack foods is a good way to lower the calories in your diet. Also, use smaller amounts of fats like butter, margarine, salad dressing, and mayonnaise. Add fresh garlic, lemon, or herbs to your meals to add flavor without adding fat. Meats and dairy products can be a big source of hidden fats. Try to choose lean or low-fat versionsof these products. Fat-free cookies, candies, chips, and frozen treats can still be high in sugar and calories. Some fat-free foods have more calories than regular ones. Eat fat- free treats in moderation, as you would other foods. If your favorite foods are high in fat, salt, sugar, or calories, limit how often you eat them. Eatsmaller servings, or look for healthy substitutes. Fill up on fruits, vegetables, and whole grains. Eating at home Use meat as a side dish instead of as the main part of your meal. Try main dishes that use whole wheat pasta, brown rice, dried beans, or vegetables. Find ways to cook with little or no fat, such as broiling, steaming, or grilling. Use cooking spray instead of oil. If you use oil, use a monounsaturated oil, such as canola or olive oil. Trim fat from meats before you cook them. Drain off fat after you brown the meat or while you roast it. Chill soups and stews after you cook them. Then skim the fat off the top after it hardens. Eating out Order foods that are broiled or poached rather than fried or breaded. Cut back on the amount of butter or margarine that you use on bread. Order sauces, gravies, and salad dressings on the side, and use only a little. When you order pasta, choose tomato sauce rather than cream sauce. Ask for salsa with your baked potato instead of sour cream, butter, cheese, or light. Order meals in a small size instead of upgrading to a large. Share an entree, or take part of your food home to eat as another meal. Share appetizers and desserts. Where can you learn more? Log into your personal health record on https://[email or web address] and enter V914 in the Education box to learn more about Learning About Cutting Calories. Current as of: January 09, 2020 Content Version: 12.7 1137-4214 [employer]. Care instructions adapted under license by your healthcare professional. If you have questions about a medical condition or this instruction, always ask your healthcare professional. [employer] disclaims any warranty or liability for your use of this information. documented in this encounter* Patient Instructions* Emili Edouard CNP - 01/17/2019 3:24 PM EDT Can use the lidocaine patches at [employer]. May need only one/half patch at a time. Seal the other 1/2 if not used. Wait to do the exercises until a little better. Do gentle stretching and follow instructions. Joint Pain: Care Instructions Your Care Instructions Many people have small aches and pains from overuse or injury to muscles and joints. Joint injuriesoften happen during sports or recreation, work tasks, or projects around the home. An overuse injury can happen when you put too much stress on a joint or when you do an activity that stresses the joint over and over, such as using the computer or rowing a boat. You can take action at home to help your muscles and joints get better. You should feel better in 1to 2 weeks, but it can take 3 months or more to heal completely. Follow-up care is a lam part of your treatment and safety. Be sure to make and go to all appointments, and call your doctor if you are having problems. It's also a good idea to know your test resultsand keep a list of the medicines you take. How can you care for yourself at home? Do not put weight on the injured joint for at least a day or two. For the first day or two after an injury, do not take hot showers or baths, and do not use hot packs. The heat could make swelling worse. Put ice or a cold pack on the sore joint for 10 to 20 minutes at a time. Try to do this every 1 to 2 hours for the next 3 days (when you are awake) or until the swelling goes down. Put a thin cloth between the ice and your skin. Wrap the injury in an elastic bandage. Do not wrap it too tightly because this can cause more swelling. Prop up the sore joint on a pillow when you ice it or anytime you sit or lie down during the next 3days. Try to keep it above the level of your heart. This will help reduce swelling. Take an gptz-xbv-ddjucax pain medicine, such as acetaminophen (Tylenol), ibuprofen (Advil, Motrin),or naproxen (Aleve). Read and follow all instructions on the label. After 1 or 2 days of rest, begin moving the joint gently. While the joint is still healing, you canbegin to exercise using activities that do not strain or hurt the painful joint. When should you call for help? Call your doctor now or seek immediate medical care if: You have signs of infection, such as: ? Increased pain, swelling, warmth, and redness. ? Red streaks leading from the joint. ? A fever. Watch closely for changes in your health, and be sure to contact your doctor if: Your movement or symptoms are not getting better after 1 to 2 weeks of home treatment. Where can you learn more? Log into your personal health record on [email or web address] and enter P205 in the Education box to learn more about Joint Pain: Care Instructions. Current as of: May 04, 2018 Content Version: 12.0 1306-9041 [employer]. Care instructions adapted under license by your healthcare professional. If you have questions about a medical condition or this instruction, always ask your healthcare professional. [employer] disclaims any warranty or liability for your use of this information. De Quervain's Disease: Exercises Your Care Instructions Here are some examples of typical rehabilitation exercises for your condition. Start each exercise slowly. Ease off the exercise if you start to have pain. Your doctor or your physical or occupational therapist will tell you when you can start these exercises and which ones will work best for you. How to do the exercises Thumb lifts 1. Place your hand on a flat surface, with your palm up. 2. Lift your thumb away from your palm to make a C shape. 3. Hold for about 6 seconds. 4. Repeat 8 to 12 times. Passive thumb MP flexion 1. Hold your hand in front of you, and turn your hand so your little finger faces down and your thumb faces up. (Your hand should be in the position used for shaking someone's hand.) You may also rest your hand on a flat surface. 2. Use the fingers on your other hand to bend your thumb down at the point where your thumb connects to your palm. 3. Hold for at least 15 to 30 seconds. 4. Repeat 2 to 4 times. Darrius stretch 1. Hold your arms out in front of you. (Your hand should be in the position used for shaking someone's hand.) 2. Bend your thumb toward your palm. 3. Use your other hand to gently stretch your thumb and wrist downward until you feel the stretch on the thumb side of your wrist. 4. Hold for at least 15 to 30 seconds. 5. Repeat 2 to 4 times. Resisted ulnar deviation 1. Sit leaning forward with your legs slightly spread and your elbow on your thigh. 2. Grasp one end of the band with your palm down, and step on the other end with the foot opposite the hand holding the band. 3. Slowly bend your wrist sideways and away from your knee. 4. Repeat 8 to 12 times. Follow-up care is a lam part of your treatment and safety. Be sure to make and go to all appointments, and call your doctor if you are having problems. It's also a good idea to know your test resultsand keep a list of the medicines you take. Where can you learn more? Log into your personal health record on [email or web address]://[email or web address] and enter E635 in the Education box to learn more about De Quervain's Disease: Exercises. Current as of: May 04, 2018 Content Version: 12.0 2989-3009 [employer]. Care instructions adapted under license by your healthcare professional. If you have questions about a medical condition or this instruction, always ask your healthcare professional. [employer] disclaims any warranty or liability for your use of this information. documented in this encounter* Patient Instructions* Christa Sarmiento CNP - 10/03/2020 7:23 AM EST Problem List Items Addressed This Visit Endocrine Hypothyroidism - Primary Continue meds as prescribed, watch diet, and increase activity as able to tolerate. Cardiovascular and Mediastinum Migraine Continue meds as prescribed, watch diet, and increase activity as able to tolerate. Other Obesity, Class II, BMI 35-39.9 Continue the currently prescribed calorie load and composition Atypical eating disorder Diet: 0923-5241 calories per day with a goal of 120 g/day protein and 60 g/day carbs Exercise Prescription: 3 days per week for 30 minutes- Goal 150 minutes per week Counselor/Therapist: Complete your [facility] at [facility] to eating patterns and macronutrient composition as well as activity levels discussed in detail Medications: Wellbutrin 300 daily, Topamax 50 BID, synthroid 225 Follow-up: 4 weeks documented in this encounter* Patient Instructions* Evi Pacheco MD - 04/10/2019 11:35 AM EDT De Quervain's Tenosynovitis: Care Instructions Your Care Instructions De Quervain's (say Nelson ) tenosynovitis is a problem that makes the bottom of your thumb and the side of your wrist hurt. When you have de Quervain's, the ropey fiber (tendon) that helps move your thumb away from your fingers becomes swollen. You may have pain when you move your wrist or pick things up. You may hear a creaking sound when you move your wrist or thumb. Symptoms often get better in a few weeks with home care. Your doctor may want you to start some gentle stretching exercises once your symptoms are gone. Sometimes treatment with an injection or surgery is needed. Follow-up care is a lam part of your treatment and safety. Be sure to make and go to all appointments, and call your doctor if you are having problems. It's also a good idea to know your test resultsand keep a list of the medicines you take. How can you care for yourself at home? Until your symptoms are better, stop the activities that caused the pain. Avoid moving the hand and wrist that hurt. Follow your doctor's directions for wearing a splint to keep your thumb and wrist from moving. Try ice or heat. ? Put ice or a cold pack on your thumb and wrist for 10 to 20 minutes at a time. Put a thin cloth between the ice and your skin. ? You can use heat for 20 to 30 minutes, 2 or 3 times a day. Try using a heating pad, hot shower, or hot pack. Ask your doctor if you can take an jvty-yll-hmtwgjk pain medicine, such as acetaminophen (Tylenol),ibuprofen (Advil, Motrin), or naproxen (Aleve). Be safe with medicines. Read and follow all instructions on the label. When should you call for help? Watch closely for changes in your health, and be sure to contact your doctor if: You have new or worse pain. You have new or worse numbness or tingling in your hand or fingers. Your hand feels weaker. You do not get better as expected. Where can you learn more? Log into your personal health record on https://[email or web address] and enter Y804 in the Education box to learn more about De Quervain's Tenosynovitis: Care Instructions. Current as of: May 04, 2018 Content Version: 12.20059300-5731 [employer]. Care instructions adapted under license by your healthcare professional. If you have questions about a medical condition or this instruction, always ask your healthcare professional. [employer] disclaims any warranty or liability for your use of this information. documented in this encounter* Patient Instructions* Christa Sarmiento, LATONIA - 05/06/2020 7:30 AM EDT Problem List Items Addressed This Visit Endocrine Hypothyroidism Continue meds as prescribed, watch diet, and increase activity as able to tolerate. Other Obesity, Class II, BMI 35-39.9 Relevant Medications phentermine (ADIPEX-P) 37.5 mg tablet (Start on 05/09/2020) Anxiety and depression Continue meds as prescribed, watch diet, and increase activity as able to tolerate. Relevant Medications phentermine (ADIPEX-P) 37.5 mg tablet (Start on 05/09/2020) zolpidem (Ambien) 10 mg tablet Atypical eating disorder - Primary Diet: 3690-8255 calories per day with a goal of 120 g/day protein and 60 g/day carbs Exercise Prescription: 3 days per week for 30 minutes- Goal 150 minutes per week Counselor/Therapist: Complete your [facility] to eating patterns and macronutrient composition as well as activity levels discussed in detail Medications: Wellbutrin 300 daily, Topamax 50 BID, synthroid 225 and phentermine round 3 Follow-up: 4 weeks Relevant Medications phentermine (ADIPEX-P) 37.5 mg tablet (Start on 05/09/2020) zolpidem (Ambien) 10 mg tablet Sleep disturbance Medications like Ambien effects the central nervous system placing you at higher risk for fall, dependence, possible overdose, and . Reported side effects include dizziness, weakness, loss of coordination, daytime drowsiness, nasal congestion, nausea,vomiting, diarrhea, constipation, headache,muscle pain, confusion, walking and eating during sleep, and visual changes. Risk and benefit of taking this medication has been discussed. Relevant Medications zolpidem (Ambien) 10 mg tablet Insulin Resistance: Care Instructions Your Care Instructions Insulin resistance means that the body can't use insulin as it should. Insulin lets sugar (glucose)enter the body's cells, where it is used for energy. It also helps muscles, fat, and liver cells store sugar to be released when needed. If the body tissues don't respond to insulin right, the blood sugar level rises. Insulin resistance mainly is caused by obesity. But other medical conditions, such as acromegaly and Lyman's syndrome, also can cause it. It can run in families too. Follow-up care is a lam part of your treatment and safety. Be sure to make and go to all appointments, and call your doctor if you are having problems. It's also a good idea to know your test resultsand keep a list of the medicines you take. How can you care for yourself at home? Take your medicines exactly as prescribed. Call your doctor if you think you are having a problem with your medicine. You will get more details on the specific medicines your doctor prescribes. Eat a good diet that spreads carbohydrates throughout the day. Get at least 30 minutes of exercise on most days of the week. Exercise helps control your blood sugar. It also helps you stay at a healthy weight. Walking is a good choice. You also may want to do other activities, such as running, swimming, cycling, or playing tennis or team sports. Try to lose weight. Losing even a small amount of weight can help. Do not smoke. If you need help quitting, talk to your doctor about stop-smoking programs and medicines. These can increase your chances of quitting for good. When should you call for help? Watch closely for changes in your health, and be sure to contact your doctor if: Your blood sugar stays outside the level your doctor set for you. You have any problems. Where can you learn more? Log into your personal health record on [email or web address] and enter V537 in the Education box to learn more about Insulin Resistance: Care Instructions. Current as of: August 03, 2019 Content Version: 12.5 [employer]. Care instructions adapted under license by your healthcare professional. If you have questions about a medical condition or this instruction, always ask your healthcare professional. [employer] disclaims any warranty or liability for your use of this information. documented in this encounter* Patient Instructions* Christa Sarmiento CNP - 08/29/2020 7:27 AM EST Problem List Items Addressed This Visit Cardiovascular and Mediastinum Migraine I have increased your Topamax to 75 mg twice daily to help with migraine and cravings Relevant Medications topiramate (TOPAMAX) 25 MG tablet Other Obesity, Class II, BMI 35-39.9 Continue the currently prescribed calorie load and composition Anxiety and depression Continue meds as prescribed, watch diet, and increase activity as able to tolerate. Atypical eating disorder - Primary Diet: 9359-6242 calories per day with a goal of 120 g/day protein and 60 g/day carbs Exercise Prescription: 3 days per week for 30 minutes- Goal 150 minutes per week Counselor/Therapist: Complete your nutrition evaluation [facility] at [facility] to eating patterns and macronutrient composition as well as activity levels discussed in detail Medications: Wellbutrin 300 daily, Topamax 75 BID, synthroid 225 Follow-up: 4 weeks Diet and Exercise for Metabolic Syndrome: Care Instructions Your Care Instructions Metabolic syndrome is the name for a group of health problems. It includes having too much fat around your waist and high blood pressure. It also includes high triglycerides, high blood sugar, and low levels of healthy (HDL) cholesterol. These problems make it more likely you will have a heart attack or stroke or get diabetes. Your family history (your genes) can cause metabolic syndrome. So can unhealthy eating habits and not getting enough exercise. You can help lower your risk of heart attack, stroke, and diabetes if you eat healthy foods and getmore exercise. It may be hard to make these lifestyle changes. But even small changes can help. Follow-up care is a lam part of your treatment and safety. Be sure to make and go to all appointments, and call your doctor if you are having problems. It's also a good idea to know your test resultsand keep a list of the medicines you take. How can you care for yourself at home? Eat more fruits and vegetables Fruits and vegetables have nutrients to help protect you from heart disease and high blood pressure. They are low in fat and high in fiber. Dark green, orange, and yellow ones are the healthiest. Keep lots of vegetables ready for snacks. Buy fruit that is in season. Then put it where you can see it so you will want to eat it. Cook dishes that have a lot of vegetables. Soups and stir-fries are good choices. Limit saturated and trans fats Read food labels, and try to avoid saturated and trans fats. They increase your risk of heart disease. Use olive or canola oil when you cook. Bake, broil, grill, or steam foods. Avoid fried foods. Limit how much high-fat meat you eat. This includes hot dogs and sausages. When you prepare meat, cut off all the fat. You can replace high-fat meat with fish and skinless poultry. You can also try products made from soybeans, like tofu. Soybeans may be very good for your heart. Choose low-fat or fat-free milk and dairy products. Eat foods high in fiber Foods high in fiber may reduce your cholesterol. And they may give you important vitamins and minerals. Good examples are oatmeal, cooked dried beans, brown rice, citrus fruits, and apples. Eat whole-grain breads and cereals. They have more fiber than white bread or pastries. Limit high-sugar foods Limit foods and drinks that are high in sugar. Some examples are soda pop, sugar-sweetened fruit drinks, candy, and many desserts. Limit the amount of sugar, honey, and other sweeteners that you add to food and drinks. Choose water instead of soda pop or other sugar-sweetened drinks. Limit fruit juice. Limit salt and sodium You can help lower your blood pressure if you limit salt and sodium. If you take the salt shaker off the table, it may be easier to use less salt. You can also try using half the salt in a recipe. And you can avoid adding salt to cooking water for pasta, rice, and potatoes. Try to eat fewer snacks, fast foods, and other high-salt, processed foods. Check labels so you knowhow much sodium a food has. Choose canned goods (soups, vegetables, and beans) that are low in sodium. Get regular exercise Get more exercise. Make sure your doctor knows when you start a new exercise program. Even small amounts of exercise will help you get stronger and have more energy. It can also help you manage your weight and your stress. Walking is a good choice. Little by little, increase the amount you walk every day. Try for at least 30 minutes on most days of the week. Where can you learn more? Log into your personal health record on [email or web address] and enter H930 in the Education box to learn more about Diet and Exercise for Metabolic Syndrome: Care Instructions. Current as of: January 09, 2020 Content Version: 12.7 [employer]. Care instructions adapted under license by your healthcare professional. If you have questions about a medical condition or this instruction, always ask your healthcare professional. [employer] disclaims any warranty or liability for your use of this information. documented in this encounter* Patient Instructions* Christa Sarmiento CNP - 02/08/2020 11:10 AM EDT Problem List Items Addressed This Visit Endocrine Hypothyroidism Continue meds as prescribed, watch diet, and increase activity as able to tolerate. It is essential that you take your medication daily as prescribed to maintain a stable thyroid level to help with your anxiety and weight Relevant Orders TSH with Reflex Free T4 (Completed) Other Obesity, Class II, BMI 35-39.9 Relevant Orders Insulin, Total (Completed) Lipoprotein NMR Anxiety and depression Continue meds as prescribed, watch diet, and increase activity as able to tolerate. Weight gain - Primary Diet: 5650-0884 calories per day with a goal of 120 g/day protein and 60 g/day carbs Exercise Prescription: 3 days per week for 30 minutes- Goal 150 minutes per week Counselor/Therapist: I have placed a referral to the [facility], their office will call you to schedule Behavioral Lifestylechanges to eating patterns and macronutrient composition as well as activity levels discussed in detail Medications: Wellbutrin 300 daily, Topamax 25 daily, synthroid Follow-up: 2 weeks Relevant Orders Ambulatory referral to Nutrition Services Insulin, Total (Completed) Lipoprotein NMR CBC and Differential (Completed) Comprehensive Metabolic Panel (Completed) Learning About Cutting Calories How do calories affect your weight? Food gives your body energy. Energy from the food you eat is measured in calories. This energy keeps your heart beating, your brain active, and your muscles working. Your body needs a certain number of calories each day. After your body uses the calories it needs, it stores extra calories as fat. To lose weight safely, you have to eat fewer calories while eating in a healthy way. How many calories do you need each day? The more active you are, the more calories you need. When you are less active, you need fewer calories. How many calories you need each day also depends on several things, including your age and whether you are male or female. Here are some general guidelines for adults: Less active women and older adults need 1,600 to 2,000 calories each day. Active women and less active men need 2,000 to 2,400 calories each day. Active men need 2,400 to 3,000 calories each day. How can you cut calories and eat healthy meals? Whole grains, vegetables and fruits, and dried beans are good lower-calorie foods. They give you lots of nutrients and fiber. And they fill you up. Sweets, energy drinks, and soda pop are high in calories. They give you few nutrients and no fiber.Try to limit soda pop, fruit juice, and energy drinks. Drink water instead. Some fats can be part of a healthy diet. But cutting back on fats from highly processed foods like fast foods and many snack foods is a good way to lower the calories in your diet. Also, use smaller amounts of fats like butter, margarine, salad dressing, and mayonnaise. Add fresh garlic, lemon, or herbs to your meals to add flavor without adding fat. Meats and dairy products can be a big source of hidden fats. Try to choose lean or low-fat versionsof these products. Fat-free cookies, candies, chips, and frozen treats can still be high in sugar and calories. Some fat-free foods have more calories than regular ones. Eat fat- free treats in moderation, as you would other foods. If your favorite foods are high in fat, salt, sugar, or calories, limit how often you eat them. Eatsmaller servings, or look for healthy substitutes. Fill up on fruits, vegetables, and whole grains. Eating at home Use meat as a side dish instead of as the main part of your meal. Try main dishes that use whole wheat pasta, brown rice, dried beans, or vegetables. Find ways to cook with little or no fat, such as broiling, steaming, or grilling. Use cooking spray instead of oil. If you use oil, use a monounsaturated oil, such as canola or olive oil. Trim fat from meats before you cook them. Drain off fat after you brown the meat or while you roast it. Chill soups and stews after you cook them. Then skim the fat off the top after it hardens. Eating out Order foods that are broiled or poached rather than fried or breaded. Cut back on the amount of butter or margarine that you use on bread. Order sauces, gravies, and salad dressings on the side, and use only a little. When you order pasta, choose tomato sauce rather than cream sauce. Ask for salsa with your baked potato instead of sour cream, butter, cheese, or light. Order meals in a small size instead of upgrading to a large. Share an entree, or take part of your food home to eat as another meal. Share appetizers and desserts. Where can you learn more? Log into your personal health record on [email or web address] and enter V914 in the Education box to learn more about Learning About Cutting Calories. Current as of: April 04, 2019 Content Version: 12.3 5893-5350 [employer]. Care instructions adapted under license by your healthcare professional. If you have questions about a medical condition or this instruction, always ask your healthcare professional. [employer] disclaims any warranty or liability for your use of this information. Insulin Resistance: Care Instructions Your Care Instructions Insulin resistance means that the body can't use insulin as it should. Insulin lets sugar (glucose)enter the body's cells, where it is used for energy. It also helps muscles, fat, and liver cells store sugar to be released when needed. If the body tissues don't respond to insulin right, the blood sugar level rises. Insulin resistance mainly is caused by obesity. But other medical conditions, such as acromegaly and Steve's syndrome, also can cause it. It can run in families too. Follow-up care is a lam part of your treatment and safety. Be sure to make and go to all appointments, and call your doctor if you are having problems. It's also a good idea to know your test resultsand keep a list of the medicines you take. How can you care for yourself at home? Take your medicines exactly as prescribed. Call your doctor if you think you are having a problem with your medicine. You will get more details on the specific medicines your doctor prescribes. Eat a good diet that spreads carbohydrates throughout the day. Get at least 30 minutes of exercise on most days of the week. Exercise helps control your blood sugar. It also helps you stay at a healthy weight. Walking is a good choice. You also may want to do other activities, such as running, swimming, cycling, or playing tennis or team sports. Try to lose weight. Losing even a small amount of weight can help. Do not smoke. If you need help quitting, talk to your doctor about stop-smoking programs and medicines. These can increase your chances of quitting for good. When should you call for help? Watch closely for changes in your health, and be sure to contact your doctor if: Your blood sugar stays outside the level your doctor set for you. You have any problems. Where can you learn more? Log into your personal health record on [email or web address] and enter V537 in the Education box to learn more about Insulin Resistance: Care Instructions. Current as of: November 28, 2018 Content Version: 12.3 0468-1947 [employer]. Care instructions adapted under license by your healthcare professional. If you have questions about a medical condition or this instruction, always ask your healthcare professional. [employer] disclaims any warranty or liability for your use of this information. documented in this encounter* Patient Instructions* Christa Sarmiento CNP - 07/01/2020 7:15 AM EST Problem List Items Addressed This Visit Endocrine Hypothyroidism Continue meds as prescribed, watch diet, and increase activity as able to tolerate. Other Obesity, Class II, BMI 35-39.9 Continue the currently prescribed calorie load and composition Relevant Orders Ambulatory referral to Bariatrics Anxiety and depression Continue meds as prescribed, watch diet, and increase activity as able to tolerate. Atypical eating disorder Diet: 3390-8370 calories per day with a goal of 120 g/day protein and 60 g/day carbs Exercise Prescription: 3 days per week for 30 minutes- Goal 150 minutes per week Counselor/Therapist: Complete your nutrition evaluation and education at [facility] to eating patterns and macronutrient composition as well as activity levels discussed in detail Medications: Wellbutrin 300 daily, Topamax 50 BID, synthroid 225 Follow-up: 4 weeks Relevant Orders Ambulatory referral to Bariatrics Bulimia: Care Instructions Your Care Instructions Bulimia nervosa is an eating disorder. People with bulimia are very concerned about body shape and size and are afraid of gaining weight. They may crave food and find ways to eat a lot of it fast. This binge eating is often set off by stress or an emotional upset. After overeating, people with bulimia may feel guilty, uncomfortable, or ashamed. They may vomit, use laxatives, or exercise excessively to get rid of the food they ate. Counseling to understand the condition and to learn ways to reduce stress is a big part of treatment for bulimia. Nutritional counseling can help you learn how to eat a healthy diet. It may help to have your family take part in family counseling so that they can support you. Treatment with medicines such as antidepressants also can help. Follow-up care is a lam part of your treatment and safety. Be sure to make and go to all appointments, and call your doctor if you are having problems. It's also a good idea to know your test resultsand keep a list of the medicines you take. How can you care for yourself at home? Follow your treatment plan Take your medicines exactly as prescribed. Call your doctor if you think you are having a problem with your medicine. Go to your counseling sessions. Call or talk with your counselor if you cannot attend or you think the sessions are not helping. Do not just stop going. Learn to be easier on yourself Remember that feeling bad about yourself and not having hope is part of your condition. As you workwith your doctor and counselors, you will start to feel better about yourself. Make a list of things you have learned, things you have done that were hard for you, or things you have changed about yourself. Do not blame yourself for having bulimia. Just work on getting better. Learn to accept help. Remember that your goal is to feel better each day. Take good care of yourself Get enough sleep. Keep your room dark and quiet, and try to go to bed at the same time every night. Try to lower your stress. Manage your time, build a strong system of social support, and lead a healthy lifestyle. To lower your stress, try physical activity, slow deep breathing, relaxing your muscles, or getting a massage. Do not use alcohol or illegal drugs. Learn the early signs of sudden, urgent food cravings. Eat a healthy, balanced diet. A balanced diet includes whole grains, dairy, fruits and vegetables, and protein. Eat a variety of foods from each of these groups so that you get all the nutrients you need. When should you call for help? Call 911 anytime you think you may need emergency care. For example, call if: You feel hopeless or have thoughts of hurting yourself. You cough up blood. You vomit blood or what looks like coffee grounds. You pass reddish brown or very bloody stools. Call your doctor now or seek immediate medical care if: You have pain in your belly. You have an irregular heartbeat. You feel dizzy or faint. Watch closely for changes in your health, and be sure to contact your doctor if you have any problems. Where can you learn more? Log into your personal health record on [email or web address] and enter S933 in the Education box to learn more about Bulimia: Care Instructions. Current as of: September 14, 2019 Content Version: 12.6 [employer]. Care instructions adapted under license by your healthcare professional. If you have questions about a medical condition or this instruction, always ask your healthcare professional. [employer] disclaims any warranty or liability for your use of this information. documented in this encounter* Patient Instructions* Evi Pacheco MD - 11/12/2020 10:45 AM EDT Well Visit, Ages 18 to 50: Care Instructions Overview Well visits can help you stay healthy. Your doctor has checked your overall health and may have suggested ways to take good care of yourself. Your doctor also may have recommended tests. At home, youcan help prevent illness with healthy eating, regular exercise, and other steps. Follow-up care is a lam part of your treatment and safety. Be sure to make and go to all appointments, and call your doctor if you are having problems. It's also a good idea to know your test resultsand keep a list of the medicines you take. How can you care for yourself at home? Get screening tests that you and your doctor decide on. Screening helps find diseases before any symptoms appear. Eat healthy foods. Choose fruits, vegetables, whole grains, protein, and low-fat dairy foods. Limitfat, especially saturated fat. Reduce salt in your diet. Limit alcohol. If you are a man, have no more than 2 drinks a day or 14 drinks a week. If you are awoman, have no more than 1 drink a day or 7 drinks a week. Get at least 30 minutes of physical activity on most days of the week. Walking is a good choice. You also may want to do other activities, such as running, swimming, cycling, or playing tennis or team sports. Discuss any changes in your exercise program with your doctor. Reach and stay at a healthy weight. This will lower your risk for many problems, such as obesity, diabetes, heart disease, and high blood pressure. Do not smoke or allow others to smoke around you. If you need help quitting, talk to your doctor about stop-smoking programs and medicines. These can increase your chances of quitting for good. Care for your mental health. It is easy to get weighed down by worry and stress. Learn strategies to manage stress, like deep breathing and mindfulness, and stay connected with your family and community. If you find you often feel sad or hopeless, talk with your doctor. Treatment can help. Talk to your doctor about whether you have any risk factors for sexually transmitted infections (STIs). You can help prevent STIs if you wait to have sex with a new partner (or partners) until you'veeach been tested for STIs. It also helps if you use condoms (male or female condoms) and if you limit your sex partners to one person who only has sex with you. Vaccines are available for some STIs, such as HPV. Use control if it's important to you to prevent . Talk with your doctor about the choices available and what might be best for you. If you think you may have a problem with alcohol or drug use, talk to your doctor. This includes prescription medicines (such as amphetamines and opioids) and illegal drugs (such as cocaine and methamphetamine). Your doctor can help you figure out what type of treatment is best for you. Protect your skin from too much sun. When you're outdoors from 10 a.m. to 4 p.m., stay in the shadeor cover up with clothing and a hat with a wide brim. Wear sunglasses that block UV rays. Even whenit's cloudy, put broad-spectrum sunscreen (SPF 30 or higher) on any exposed skin. See a dentist one or two times a year for checkups and to have your teeth cleaned. Wear a seat belt in the car. When should you call for help? Watch closely for changes in your health, and be sure to contact your doctor if you have any problems or symptoms that concern you. Where can you learn more? Log into your personal health record on [email or web address] and enter P072 in the Education box to learn more about Well Visit, Ages 18 to 50: Care Instructions. Current as of: January 09, 2020 Content Version: 12.7 [employer]. Care instructions adapted under license by your healthcare professional. If you have questions about a medical condition or this instruction, always ask your healthcare professional. [employer] disclaims any warranty or liability for your use of this information. documented in this encounter Assessments Diagnosis Anxiety and depression Other specified hypothyroidism Lymphadenopathy Enlargement of lymph nodes Leg swelling Swelling of limb Diagnosis Lymphadenopathy Enlargement of lymph nodes Diagnosis Anxiety and depression Diagnosis Other specified hypothyroidism Leg swelling Swelling of limb Anxiety and depression Diagnosis Atypical eating disorder Insulin resistance Other abnormal glucose Sleep disturbance Unspecified sleep disturbance Obesity, Class II, BMI 35-39.9 Diagnosis Hair loss- Primary Unspecified alopecia Other specified hypothyroidism Anxiety and depression Need for influenza vaccination Need for prophylactic vaccination and inoculation against influenza Diagnosis Atypical eating disorder- Primary Anxiety and depression Other specified hypothyroidism Obesity, Class II, BMI 35-39.9 Diagnosis Vaginal bleeding- Primary Other specified noninflammatory disorder of vagina Dysuria Other specified hypothyroidism Diagnosis Other specified hypothyroidism Diagnosis Anxiety and depression- Primary Diagnosis Tendonitis of wrist, left- Primary Pain and swelling of left wrist Diagnosis Atypical eating disorder- Primary Other specified hypothyroidism Migraine with aura and without status migrainosus, not intractable Obesity, Class II, BMI 35-39.9 Diagnosis Sinusitis, unspecified chronicity, unspecified location- Primary Diagnosis Tenosynovitis of right wrist- Primary Other specified hypothyroidism Rash Rash and other nonspecific skin eruption Diagnosis Atypical eating disorder- Primary Anxiety and depression Sleep disturbance Unspecified sleep disturbance Other specified hypothyroidism Obesity, Class II, BMI 35-39.9 Diagnosis Atypical eating disorder- Primary Anxiety and depression Migraine with aura and without status migrainosus, not intractable Obesity, Class II, BMI 35-39.9 Diagnosis Weight gain Other symptoms concerning nutrition, metabolism, and development Anxiety and depression Other specified hypothyroidism Obesity, Class II, BMI 35-39.9 Diagnosis Atypical eating disorder Other specified hypothyroidism Anxiety and depression Obesity, Class II, BMI 35-39.9 Diagnosis Annual physical exam- Primary Routine general medical examination at a health care facility Other specified hypothyroidism Anxiety and depression Discharge Instructions * Instructions* Radha Pitts RN - 11/10/2018 Gave pt discharge instructions. Pt verbalizes understanding. PT dc'd to home. * Attachments The following attachments cannot be sent through Care Everywhere. * : HIGH-RISK (GUINEAN) * : WEEKS 18 TO 22 (GUINEAN) in this encounter Additional Source Comments INFORMATION SOURCE (unrecogn ized section and content) DATE CREATED AUTHOR 09/13/2018 [facility] DATE CREATED AUTHOR AUTHOR'S ORGANIZ ATION [facility] DATE CREATED AUTHOR AUTHOR'S ORGANIZ ATION 03/26/2019 [facility] DATE CREATED AUTHOR AUTHOR'S ORGANIZ ATION 07/08/2021 [facility] DATE CREATED AUTHOR AUTHOR'S ORGANIZ ATION 07/14/2021 [facility] DATE CREATED AUTHOR AUTHOR'S ORGANIZ ATION 10/04/2021 [facility] DATE CREATED AUTHOR AUTHOR'S ORGANIZ ATION 02/03/2022 [facility] pital DATE CREATED AUTHOR AUTHOR'S ORGANIZ ATION 07/15/2023 [facility] EPIC DATE CREATED AUTHOR AUTHOR'S ORGANIZ ATION 07/19/2023 [facility] DATE CREATED AUTHOR AUTHOR'S ORGANIZ ATION 08/15/2023 [facility] DATE CREATED AUTHOR AUTHOR'S ORGANIZ ATION 12/22/2023 [facility] DATE CREATED AUTHOR AUTHOR'S ORGANIZ ATION 05/17/2024 [facility] Reason for Visit (unrecogniz ed section and content) Reason Comments Chronic Kidney Disease Health department follow up Reason Comments Care Coordination BHP Reason Comments Anxiety HILARY 7 Breast Pain right breast Edema Status Reason Specialty Diagnoses / Procedures Referred By Contact Referred To Contact Pending Review Specialty Services Required/Patien t's Best Interest Radiology Diagnoses Lymphadenopathy Procedures US Breast Right Limited US Breast Right Complete Junior, Evi, MD [address] [place] [address] Status Reason Specialty Diagnoses / Procedures Referred By Contact Referred To Contact Pending Review Specialty Services Required/Patien t's Best Interest Radiology Diagnoses Lymphadenopathy Procedures Mammography Diagnostic Steve Bilateral Mammography Diagnostic Right Evi Pacheco MD [address] [place] [phone] Reason Comments Care coordination BHP Reason Comments Mood Swings Thyroid Problem Leg Swelling Reason Comments Weight Gain Reason Comments Alopecia Hypothyroidism Reason Comments Weight Check Reason Comments Dysuria Reason Comments Chronic Care Management PH snf visits Reason Comments Wrist Pain x last week. No know n injury Reason Comments URI Reason Comments Rash Wrist Pain Reason Comments Follow-up Atypical eating diso rder. Reason Comments Obesity Reason Comments Dizziness States she gets cold , clammy, sweaty, blurred/dark vision, nauseous and feels like she is about to pass out. States Dr. Viveros told her to go to the ER. Denies leaking of fluid or bleeding. States she feels baby move sometimes Reason Comments Follow-up Atypical eating diso rder. 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 Pain Reason Comments Obesity mwm Russo Reason Comments Weight Gain Specialty Diagnoses / Procedures Referred By Contac t Referred To Contact Nutrition Diagnoses Obesity, Class II, BMI 35-39.9 Atypical eating disorder Evi Pacheco MD [address] [place] [phone] Map [facility] [address] [place] [address] Referral ID Status Reason Start Date Expiration Date V isits Requested Visits Authorized [id number] Closed Specialty Services Required/Nora ent's Best Interest 02/20/2021 02/20/2022 1 1 Reason Comments Weight Loss Obesity Reason Comments Weight Loss Obesity Reason Comments Cough Reason Comments Obesity Weight Loss Reason Comments Rectal Bleeding Reason Onset Date Comments Medication Refill 12/08/2021 Reason Onset Date Comments Medication Refill 05/23/2022 Reason Onset Date Comments Medication Refill 09/14/2022 Reason Comments Obesity Weight Loss Reason Onset Date Comments Medication Refill 01/11/2023 Reason Onset Date Comments Medication Refill 04/07/2023 Reason Onset Date Comments Medication Refill 11/18/2023 Reason Onset Date Comments Medication Refill 03/06/2024 Assessment & Plan Note - Evi Pacheco MD - 08/24/2019 3:06 PM ESTAssessment & Plan Note - Evi Pacheco MD - 08/24/2019 3:02 PM EST Miscellaneous Notes (unrecog nized section and content) Associated Problem(s): Lymphadenopathy -She is noted to have right-sided lymphadenopathy today. She does have a history of non-Hodgkin's and from a status post radiation and chemo. She also has a history of breast cyst that have been evaluated in the past with mammograms. This time I will refer her to our breast center for diagnostic mammogram and possible ultrasound on the right side. Associated Problem(s): Leg swelling -This is a chronic problem but the left leg is slightly larger. We will check for DVT. We will recheck thyroid levels. With no SOB or chest pain, will hold off on any cardiac work up at this time. Associated Problem(s): Anxiety and depression -This is a chronic problem, currently uncontrolled. Her HILARY score was 19. This is exacerbated in the setting of trust issues with her spouse. Also suspect that her thyroid may be off in the setting of weight gain. She has been on Effexor in the past I think this is a good medication for her and will restart at this time. We discussed using BuSpar as needed if we need to add another medication. I did refer her at this time to [employer] certified network professional. Being that most of her anxiety is situational she would benefit from discussing coping mechanisms and improving her thoughts about herself. Associated Problem(s): Hypothyroidism -Acquired after radiation. Her TSH has been difficult to control. We will repeat labs today. If elevated will increase her Synthroid. We will also refer her to endocrinology. Currently on 200 MCG's will increase it to 225. documented in this encounter Associated Problem(s): Leg swelling - improving, likely venous stasis in the setting of obesity and stationary job. We discussed getting up and moving more during the today as well as weight loss and use of compression hose Associated Problem(s): Hypothyroidism -Chronic, uncontrolled secondary nonadherence. reiterated the importance of taking medication on time reviewed with her tachycardia today and her increased weight gain. Continue at 225 MCG's. Will repeat labs in 4 weeks. Associated Problem(s): Anxiety and depression - HILARY 7 score is 8, was 19 last visit. Did not tolerate Effexor, decision made to go back on Wellbutrin. Doing well and there is room for improvement so we will increase it to 100 mg twice a day. documented in this encounter Associated Problem(s): Insulin resistance Continue the currently prescribed calorie load and composition Associated Problem(s): Sleep disturbance Trial the Ambien to see if this helps with your sleep patterns. Take this around 10 am. Associated Problem(s): Obesity, Class II, BMI 35-39.9 Continue the currently prescribed calorie load and composition Associated Problem(s): Atypical eating disorder Diet: 4878-1810 calories per day with a goal of 120 g/day protein and 60 g/day carbs Exercise Prescription: 3 days per week for 30 minutes- Goal 150 minutes per week Counselor/Therapist: Complete your nutrition evaluation and education at [facility] to eating patterns and macronutrient composition as well as activity levels discussed in detail Medications: Wellbutrin 300 daily, Topamax 25 daily, synthroid 225. Topamax increased to 50 twice daily Follow-up: 2 weeks documented in this encounter Associated Problem(s): Anxiety and depression Chronic, handling her moods better however several stressors still present her life. Wellbutrin switched to extended release to help with adherence. Associated Problem(s): Hypothyroidism May be contributing to her hair loss. Will get TSH and T4 levels. She is taking medications as prescribed. documented in this encounter Associated Problem(s): Hypothyroidism You will need to have your thyroid level rechecked to make sure you are on the correct dose of levothyroxine. Associated Problem(s): Anxiety and depression Continue meds as prescribed, watch diet, and increase activity as able to tolerate. Associated Problem(s): Obesity, Class II, BMI 35-39.9 Continue the currently prescribed calorie load and composition Associated Problem(s): Atypical eating disorder Diet: 5711-0918 calories per day with a goal of 120 g/day protein and 60 g/day carbs Exercise Prescription: 3 days per week for 30 minutes- Goal 150 minutes per week Counselor/Therapist: Complete your nutrition evaluation and education at [facility] to eating patterns and macronutrient composition as well as activity levels discussed in detail Medications: Wellbutrin 300 daily, Topamax 50 BID, synthroid 225 Follow-up: 4 weeks documented in this encounter Addended by: EVI PACHECO on: 08/04/2020 03:48 PM Modules accepted: Orders Associated Problem(s): Hypothyroidism This is a chronic problem you are currently taking Synthroid. We will check your thyroid levels to see if you are causing any issues with your menstrual cycles. Associated Problem(s): Vaginal bleeding On physical exam today there was blood coming out of the cervical os. We discussed that this may likely be another menstrual cycle. This may be off in the setting of thyroid dysfunction. We will check your thyroid function. The urinalysis in the office did show some nitrites and leuks. However this is hard to diagnose due to the blood. We will get a urine culture. Due to the pelvic pain in the left lower abdomen we will check your ovary as well. STD testing was done today. documented in this encounter Associated Problem(s): Hypothyroidism Continue meds as prescribed, watch diet, and increase activity as able to tolerate. Associated Problem(s): Migraine Continue meds as prescribed, watch diet, and increase activity as able to tolerate. Associated Problem(s): Obesity, Class II, BMI 35-39.9 Continue the currently prescribed calorie load and composition Associated Problem(s): Atypical eating disorder Diet: 9672-9755 calories per day with a goal of 120 g/day protein and 60 g/day carbs Exercise Prescription: 3 days per week for 30 minutes- Goal 150 minutes per week Counselor/Therapist: Complete your nutrition evaluation and education at [facility] to eating patterns and macronutrient composition as well as activity levels discussed in detail Medications: Wellbutrin 300 daily, Topamax 75 BID, synthroid 225 Follow-up: 4 weeks documented in this encounter Associated Problem(s): Hypothyroidism -This is secondary to radiation after Hodgkin's lymphoma diagnosis. States that she does have a thyroid present. She is taking about 225 mcg of Synthroid daily. Not having any signs of hyperthyroidism however the dose was increased significantly during . Plan is to check TSH/T4 every 3 months and adjust as needed. She understands that if she experiences any hyperthyroidism symptoms, she can come in and be checked sooner. Associated Problem(s): Tenosynovitis of right wrist -This is a new problem likely secondary to increased use with her . We discussed resting her wrist as much as possible. As well as utilizing a brace to help. She is to ice and use ibuprofen as needed. I reiterate that this may take time to resolve due to her chronic use with a baby. documented in this encounter Associated Problem(s): Anxiety and depression Continue meds as prescribed, watch diet, and increase activity as able to tolerate. Associated Problem(s): Hypothyroidism Continue meds as prescribed, watch diet, and increase activity as able to tolerate. Associated Problem(s): Sleep disturbance Medications like Ambien effects the central nervous system placing you at higher risk for fall, dependence, possible overdose, and . Reported side effects include dizziness, weakness, loss of coordination, daytime drowsiness, nasal congestion, nausea,vomiting, diarrhea, constipation, headache, muscle pain, confusion, walking and eating during sleep, and visual changes. Risk and benefit of taking this medication has been discussed. Associated Problem(s): Atypical eating disorder Diet: 1545-7810 calories per day with a goal of 120 g/day protein and 60 g/day carbs Exercise Prescription: 3 days per week for 30 minutes- Goal 150 minutes per week Counselor/Therapist: Complete your nutrition evaluation and education at [facility] to eating patterns and macronutrient composition as well as activity levels discussed in detail Medications: Wellbutrin 300 daily, Topamax 50 BID, synthroid 225 and phentermine round 3 Follow-up: 4 weeks documented in this encounter Associated Problem(s): Migraine I have increased your Topamax to 75 mg twice daily to help with migraine and cravings Associated Problem(s): Hypothyroidism Continue meds as prescribed, watch diet, and increase activity as able to tolerate. Associated Problem(s): Anxiety and depression Continue meds as prescribed, watch diet, and increase activity as able to tolerate. Associated Problem(s): Obesity, Class II, BMI 35-39.9 Continue the currently prescribed calorie load and composition Associated Problem(s): Atypical eating disorder Diet: 2603-2370 calories per day with a goal of 120 g/day protein and 60 g/day carbs Exercise Prescription: 3 days per week for 30 minutes- Goal 150 minutes per week Counselor/Therapist: Complete your nutrition evaluation and education at [facility] to eating patterns and macronutrient composition as well as activity levels discussed in detail Medications: Wellbutrin 300 daily, Topamax 75 BID, synthroid 225 Follow-up: 4 weeks documented in this encounter Associated Problem(s): Hypothyroidism Continue meds as prescribed, watch diet, and increase activity as able to tolerate. It is essential that you take your medication daily as prescribed to maintain a stable thyroid level to help with your anxiety and weight Associated Problem(s): Anxiety and depression Continue meds as prescribed, watch diet, and increase activity as able to tolerate. Associated Problem(s): Weight gain Diet: 0479-7917 calories per day with a goal of 120 g/day protein and 60 g/day carbs Exercise Prescription: 3 days per week for 30 minutes- Goal 150 minutes per week Counselor/Therapist: I have placed a referral to the underwater hunter, their office will call you to schedule [facility]estyle[facility] to eating patterns and macronutrient composition as well as activity levels discussed in detail Medications: Wellbutrin 300 daily, Topamax 25 daily, synthroid Follow-up: 2 weeks documented in this encounter Associated Problem(s): Obesity, Class II, BMI 35-39.9 Continue the currently prescribed calorie load and composition Associated Problem(s): Anxiety and depression Continue meds as prescribed, watch diet, and increase activity as able to tolerate. Associated Problem(s): Hypothyroidism Continue meds as prescribed, watch diet, and increase activity as able to tolerate. Associated Problem(s): Atypical eating disorder Diet: 1969-6875 calories per day with a goal of 120 g/day protein and 60 g/day carbs Exercise Prescription: 3 days per week for 30 minutes- Goal 150 minutes per week Counselor/Therapist: Complete your nutrition evaluation and education at [facility] to eating patterns and macronutrient composition as well as activity levels discussed in detail Medications: Wellbutrin 300 daily, Topamax 50 BID, synthroid 225 Follow-up: 4 weeks documented in this encounter Associated Problem(s): Hypothyroidism Will check your labs today. We discussed taking all of our pills on one day to help with adherence. We discussed risk of uncontrolled hypothyroidism. This will affect your weight loss, mood and your menstrual cycle. Associated Problem(s): Anxiety and depression We discussed risk of libido changes with SSRI's. You did not have this affect on the 20 mg dose, so I recommend that you go back to that dose. I have prescribed Buspar to be taken as needed or daily if you'd like. We discussed mindfulness techniques as well. The Wellbutrin can worsen your anxiety, consider discontinuing and trying another weight loss medication. Associated Problem(s): Annual physical exam -Counseled on healthy diet. -Counseled on importance of exercise - 150mins/ week of moderate activity as tolerated -Lab screening for hyperlipidemia, A1C for diabetes ordered -Discussed pap recommendations/follow up: will complete next visit due to menses -Discussed breast cancer screening: breast exam completed today -Discussed colon cancer screening: age 52 documented in this encounter Care Teams (unrecognized sec tion and content) Collator Hand Relationship Specialty Start Date End Date Evi Pacheco MD [address] [place] [phone] PCP - General Family Medicine 04/11/19 [facility] 08/24/19 [facility] Relationship Specialty Start Date End Date Evi Pacheco MD [address] [place] [phone] PCP - General Family Medicine 04/11/19 [facility] 08/24/19 [facility] Relationship Specialty Start Date End Date Evi Pacheco MD [address] [place] [address] [phone] PCP - General Family Medicine 04/11/19 [facility] 08/24/19 [facility] Relationship Specialty Start Date End Date Evi Pacheco MD [address] [place] [address] [phone] PCP - General Family Medicine 04/11/19 [facility] 08/24/19 [facility]ator Hand Relationship Specialty Start Date End Date Evi Pacheco MD [address] [place] [address] [phone] PCP - General Family Medicine 04/11/19 [facility] 08/24/19 Collator Hand Relationship Specialty Start Date End Date Evi Pacheco MD [address] [place] [address] [phone] PCP - General Family Medicine 04/11/19 [facility] 08/24/19 Collator Hand Relationship Specialty Start Date End Date Evi Pacheco MD [address] [place] [address] [phone] PCP - General Family Medicine 04/11/19 [facility] 08/24/19 Collator Hand Relationship Specialty Start Date End Date Evi Pacheco MD [address] [place] [address] [phone] PCP - General Family Medicine 04/11/19 [facility] 08/24/19 Collator Hand Relationship Specialty Start Date End Date Evi Pacheco MD [address] [place] [address] [phone] PCP - General Family Medicine 04/11/19 [facility] 08/24/19 Collator Hand Relationship Specialty Start Date End Date Evi Pacheco MD [address] [place] [address] [phone] PCP - General Family Medicine 04/11/19 [facility] 08/24/19 Collator Hand Relationship Specialty Start Date End Date Evi Pacheco MD [address] [place] [address] [phone] PCP - General Family Medicine 04/11/19 [facility] 08/24/19 Collator Hand Relationship Specialty Start Date End Date Evi Pacheco MD [address] [place] [address] [phone] PCP - General Family Medicine 04/11/19 [facility] 08/24/19 Collator Hand Relationship Specialty Start Date End Date Evi Pacheco MD [address] [place] [address] [phone] PCP - General Family Medicine 04/11/19 [facility] 08/24/19 Collator Hand Relationship Specialty Start Date End Date Evi Pacheco MD [address] [place] [address] [phone] PCP - General Family Medicine 04/11/19 [facility] 08/24/19 Collator Hand Relationship Specialty Start Date End Date Evi Pacheco MD [address] [place] [address] [phone] PCP - General Family Medicine 04/11/19 [facility] 08/24/19 Collator Hand Relationship Specialty Start Date End Date Evi Pacheco MD [address] [place] [address] [phone] PCP - General Family Medicine 04/11/19 [facility] 08/24/19 Collator Hand Relationship Specialty Start Date End Date Evi Pacheco MD [address] [place] [address] [phone] PCP - General Family Medicine 04/11/19 [facility] 08/24/19 Collator Hand Relationship Specialty Start Date End Date Evi Pacheco MD [address] [place] [address] [phone] PCP - General Family Medicine 04/11/19 [facility] 08/24/19 Collator Hand Relationship Specialty Start Date End Date Evi Pacheco MD [facility] [facility] [address] [place] [address] [phone] PCP - General Family Medicine 04/11/19 [facility] 08/24/19 Collator Hand Relationship Specialty Start Date End Date Evi Pacheco MD [facility] [facility] [address] [place] [address] [phone] PCP - General Family Medicine 04/11/19 [facility] 08/24/19 Collator Hand Relationship Specialty Start Date End Date Evi Pacheco MD [facility] [address] [place] [address] [phone] PCP - General Family Medicine 04/11/19 Rochelle Martinez LPC Independent Clinician Behavioral Health 08/24/19 Collator Hand Relationship Specialty Start Date End Date Evi Pacheco MD [facility] [address] [place] [address] [phone] PCP - General Family Medicine 04/11/19 Rochelle Martinez LPC Independent Clinician Behavioral Health 08/24/19 Collator Hand Relationship Specialty Start Date End Date Evi Pacheco MD [facility] [address] [place] [address] [phone] PCP - General Family Medicine 04/11/19 Rochelle Martinez LPC Independent Clinician Behavioral Health 08/24/19 Collator Hand Relationship Specialty Start Date End Date Evi Pacheco MD [address] [place] [address] [phone] PCP - General Family Medicine 04/11/19 Rochelle Martinez LPC Independent Clinician Behavioral Health 08/24/19 Collator Hand Relationship Specialty Start Date End Date Evi Pacheco MD [address] [place] [address] [phone] PCP - General Family Medicine 04/11/19 Rochelle Martinez LPC Independent Clinician Behavioral Health 08/24/19 Collator Hand Relationship Specialty Start Date End Date Evi Pacheco MD [address] [place] [address] [phone] PCP - General Family Medicine 04/11/19 Rochelle Martinez LPC Independent Clinician Behavioral Health 08/24/19 Collator Hand Relationship Specialty Start Date End Date Evi Pacheco MD [address] [place] [address] [phone] PCP - General Family Medicine 04/11/19 Rochelle Martinez LPC Independent Clinician Behavioral Health 08/24/19 Collator Hand Relationship Specialty Start Date End Date Evi Pacheco MD [address] [place] [address] [phone] PCP - General Family Medicine 04/11/19 Rochelle Martinez LPC Independent Clinician Behavioral Health 08/24/19 Collator Hand Relationship Specialty Start Date End Date Evi Pacheco MD [address] [place] [address] [phone] PCP - General Family Medicine 04/11/19 Rochelle Martinez LPC Independent Clinician Behavioral Health 08/24/19 Collator Hand Relationship Specialty Start Date End Date Evi Pacheco MD [address] [place] [address] [phone] PCP - General Family Medicine 04/11/19 Rochelle Martinez LPC Independent Clinician Behavioral Health 08/24/19 Collator Hand Relationship Specialty Start Date End Date Evi Pacheco MD [address] [place] [address] [phone] PCP - General Family Medicine 04/11/19 Rochelle Martinez LPC Independent Clinician Behavioral Health 08/24/19 Collator Hand Relationship Specialty Start Date End Date Evi Pacheco MD [address] [place] [address] [phone] PCP - General Family Medicine 04/11/19 Rochelle Martinez LPC Independent Clinician Behavioral Health 08/24/19 Collator Hand Relationship Specialty Start Date End Date Evi Pacheco MD [address] [place] [address] [phone] PCP - General Family Medicine 04/11/19 Rochelle Martinez LPC Independent Clinician Behavioral Health 08/24/19 Collator Hand Relationship Specialty Start Date End Date Evi Pacheco MD [address] [place] [address] [phone] PCP - General Family Medicine 04/11/19 Rochelle Martinez LPC Independent Clinician Behavioral Health 08/24/19 Collator Hand Relationship Specialty Start Date End Date Evi Pacheco MD [address] [place] [address] [phone] PCP - General Family Medicine 04/11/19 Rochelle Martinez LPC Independent Clinician Behavioral Health 08/24/19 Collator Hand Relationship Specialty Start Date End Date Evi Pacheco MD [address] [place] [address] [phone] PCP - General Family Medicine 04/11/19 Rochelle Martinez LPC Independent Clinician Behavioral Health 08/24/19 Collator Hand Relationship Specialty Start Date End Date Evi Pacheco MD [address] [place] [address] [phone] PCP - General Family Medicine 04/11/19 Rochelle Martinez LPC Independent Clinician Behavioral Health 08/24/19 FOR RECORDS PERTAINING TO PATIENTS WHO ARE OR HAVE BEEN ENROLLED IN A CHEMICAL DEPENDENCY/SUBSTANCEABUSE PROGRAM, SOME INFORMATION MAY BE OMITTED. This clinical summary was aggregated from multiple sources. Caution should be exercised in using it in the provision of clinical care. This summary normalizes information from multiple sources, and as a consequence, information in this document may materially change the coding, format and clinical context of patient data. In addition, data may be omitted in some cases. CLINICAL DECISIONS SHOULD BE BASED ON THE PRIMARY CLINICAL RECORDS. [employer] provides no warranty or guarantee of the accuracy or completeness of information in this document.
[2024-06-22 10:12] LABS: Age Gdln ACOG Testing Note (.); HPV Aptima Negative (Negative); IGP, Aptima HPV, rfx 16/18,45 Note (.)
== END 2024-06-14 18:55 | disposition home or self-care (01) ==
LOC: LAB 18:54
PROVIDERS: Visit Provider Physician Assistant
DX: Z01.419 Encounter for gynecological examination (general) (routine) without abnormal findings (principal)
CPT/HCPCS: 87624; 88175

== ENCOUNTER 2025-06-18 18:47 | Outpatient (REF) | payer OTHER, SELFPAY ==
--- OUTSIDE RECORDS SUMMARY | 2025-06-17 09:45 | XMS_ITS | Encounter Summary ---
Author Organization [facility] Address [address] [place] [address] Care Team Providers Care National Investigative Producer Name Role Phone Rochelle Martinez LPC Unavailable Unavailable No, Physician Primary Care Provider Unavailabl e Reason for Visit * ReasonCommentsMedical Weight Management Encounter Details DateTypeDepartmentCare Team (Latest Contact Info)Cmafcouqtrj47/03/2025 9:45 AM ESTEvaluation [facility] [address] [facility] [address], [address] [place] [address] Dahiana Shankar, [facility] [address] [facility] [address] [place] [address] Atypical eating disorder (Primary Dx); Insulin resistance; Obesity, Class I, BMI 30-34.9; BMI 33.0-33.9,adult; Vitamin D deficiency; Vitamin B6 deficiency; Iron deficiency; Depression, unspecified depression type Social History Tobacco UseTypesPacks/DayYears UsedDateSmoking Tobacco: NeverSmokeless Tobacco: NeverAlcohol UseStandard Drinks/WeekCommentsYes0 (1 standard drink = 0.6 oz pure alcohol)AUDIT-CAnswerDate RecordedQ1: How often do you have a drink containing alcohol?Monthly or less08/29/2020Q2: How many drinks containing alcohol do you have on a typical day when you are drinking?Not asked08/29/2020Q3: How often do you have six or more drinks on one occasion?Not asked01/15/2021PHQ-2AnswerDate RecordedPHQ-9 Total Hjuvu87408/31/2019CommentsUnknownSex and Gender InformationValueDate RecordedSex Assigned at BirthNot on fileLegal SexFemale 10/01/2018 2:54 PM ESTGender PrrkismyKxpzcm09/05/2019 2:28 PM EDTSexual VtulgdobimfDpbgrabi21/05/2019 2:28 PM EDTdocumented as of this encounter Last Filed Vital Signs Vital SignReadingTime TakenCommentsBlood Ffqfykik967/7111 9:47 AM EST Xuhnb59218 9:47 AM ESTTemperature--Respiratory Rate--Oxygen Saturation 99%06/17/2025 9:47 AM ESTInhaled Oxygen Concentration--Cgaokf29.3 kg (201 lb 4.8 oz)06/17/2025 9:47 AM VYFMwcjmy928.1 cm (5' 5 )06/17/2025 9:47 AM ESTBody Mass Index33.511 9:47 AM ESTdocumented in this encounter Progress Notes * Dahiana Shankar, LATONIA - 06/17/2025 9:54 AM EST Chief Complaint Patient presents with Medical Weight Management [place]: Pt who is a Body mass index is 33.5 kg/m??. Patient's history of diet, exercise, sleep, stress and appetite control reviewed and confirmed withpatient, please see the biomedical engineering director's note. HPI: Patient here today for recheck through the medical weight management program. Patient reports an increase in cravings and hunger since last appointment. She states this is intermittent. Some days she has increased hunger and cravings, but some days she feels better controlled. Energy levels are reasonable. Sleep is reasonable. Patient feels it is more difficult to adhere to the diet and exercise protocols as ordered since last appointment. She is up 4 pounds since last appointment. Medications were reviewed today and no other problems noted. Stress levels are still increased due to her work schedule and home life stressors. She is continuing to follow-up with her psychologist and has follow up appt today. For the rest of the review of systems and exam see the EMR. Impression: 1. Atypical eating disorder, 2. Insulin resistance, 3. Obesity Class I, 4. BMI 33.0-33.9, 5. Vitamin D deficiency, 6. Vitamin B6 deficiency, 7. Iron deficiency, 8. Depression stable Plan: She will continue with phentermine for appetite control for maintenance as she continues to tolerate the medication well. She had lost >5% of body weight in the first 12 weeks on the medication. OARRS reviewed again today. I did discuss that if she has any additional weight gain, she will not be able to continue taking the medication due to gaining back more than the 5% weight she lost. She will also continue with Wellbutrin for mood and volume control dosed at lunchtime. She will alsocontinue with current dose of Zoloft at nighttime to help with depression. I do recommend that she continues to f/u with our psychologist. She will also continue with zonisamide for volume control and reward eating. She will also continue with current dose of dulaglutide off label for glucose regulation secondary to insulin resistance, volume control and continued weight loss/maintenance. We discussed adding back metformin dosed at dinner to better help with symptoms but she is reluctant due tosome history of diarrhea in the past. She will also continue with vitamin and iron [...] with muscle acquisition. Patient will follow-up in 6-8 weeks or sooner if needed. This note [...] every 6 (six) hours as needed for shortnessof breath or cough . 18 g 0 furosemide (LASIX) 20 MG tablet Take 1 (one) tablet (20 mg total) by mouth daily as needed Reasons:visible water retention. levothyroxine (SYNTHROID, LEVOTHROID) 150 MCG tablet Take 1 (one) tablet (150 mcg total) by mouth once daily . (Patient taking differently: Take 137 mcg by mouth once daily Takes 137 MCG .) 30 tablet1 budesonide-formoteroL (Symbicort) 80-4.5 mcg/actuation inhaler Inhale 2 (two) puffs 2 (two) times aday . (Patient not taking: Reported on 12/10/2024 .) 1 each 2 buPROPion (WELLBUTRIN XL) 150 MG 24 hr tablet Take 1 (one) tablet (150 mg total) by mouth daily . 30 tablet 2 cyanocobalamin, vitamin B-12, 1,[address] 1 (one) tablet (1,000 mcg total) under the tongue daily . (Patient not taking: Reported on 03/12/2025 .) 30 tablet 2 dulaglutide (Trulicity) 4.5 mg/0.5 mL Pen Inject 0.5 mL (4.5 mg total) under the skin every 7 days . 2 mL 5 ergocalciferol (ERGOCALCIFEROL) 1,250 mcg (50,000 unit) capsule Take 1 (one) capsule (50,000 Units total) by mouth twice weekly Take with 500mg vitamin c and fatty meal . (Patient not taking: Reported on 12/10/2024 .) 8 capsule 1 ferrous sulfate 325 (65 FE) MG tablet Take 1 (one) tablet (325 mg total) by mouth every other day Take with 500mg of vitamin c . (Patient not taking: Reported on 12/10/2024 .) 15 tablet 1 inhaler, assist devices (OPTICHAMBER ADVANTAGE) Spcr As directed . 1 each 0 ondansetron (ZOFRAN-ODT) 4 MG disintegrating tablet Dissolve 1 (one) tablet (4 mg total) on top of tongue every 8 (eight) hours as needed for nausea . (Patient not taking: Reported on 12/10/2024 .) 20tablet 0 phentermine (ADIPEX-P) 37.5 mg tablet Take 1 (one) tablet (37.5 mg total) by mouth every morning (Days supply per fill: 30) BMI 35.11 now 32.6, maintenance, current weight 195 lbs . 30 tablet 2 pyridoxine, vitamin B6, (vitamin B-6) 25 MG tablet Take 1 (one) tablet (25 mg total) by mouth daily. (Patient not taking: Reported on 12/10/2024 .) 30 tablet 2 senna-docusate (SENNA-S) 8.6-50 mg Take 1 (one) tablet by mouth daily . 30 tablet 5 sertraline (ZOLOFT) 25 MG tablet Take 1 (one) tablet (25 mg total) by mouth nightly . 30 tablet 5 zonisamide (ZONEGRAN) 100 MG capsule Take 1 (one) capsule (100 mg total) by mouth once daily Take in evening . 30 capsule 5 No current facility-administered medications for this visit. BP 102/71 Pulse (!) 105 Ht 5' 5 (1.651 m) Wt 91.3 kg (201 lb 4.8 oz) SpO2 99% BMI 33.50 kg/m?? Physical Exam Vitals and nursing note reviewed. Constitutional: General: She is not in acute distress. Appearance: Normal appearance. She is obese. She is not ill-appearing, toxic- appearing or diaphoretic. Cardiovascular: Rate and Rhythm: Normal [...] (WELLBUTRIN XL) 150 MG 24 hr tablet zonisamide (ZONEGRAN) 100 MG capsule sertraline (ZOLOFT) 25 MG tablet phentermine (ADIPEX-P) 37.5 mg tablet Other Visit Diagnoses Insulin resistance Relevant Medications dulaglutide (Trulicity) 4.5 mg/0.5 mL Pen Obesity, Class I, BMI 30-34.9 Relevant Medications phentermine (ADIPEX-P) 37.5 mg tablet BMI 33.0-33.9,adult Vitamin D deficiency Vitamin B6 deficiency Iron deficiency Depression, unspecified depression type Relevant Medications buPROPion (WELLBUTRIN XL) 150 MG 24 hr tablet sertraline (ZOLOFT) 25 MG tablet phentermine (ADIPEX-P) 37.5 mg tablet Continue the currently prescribed calorie load and composition. Return in about 2 months (around 08/17/2025) for Follow Up. Counseling Time: minutes more [...] Overweight (Findings) BMI documented in this encounter Plan of Treatment DateTypeDepartmentCare Team (Latest Contact Info)Vpdhgdoizpl54/05/2026 8:30 AM ESTTreatment [facility] [address] [facility] [address], [address] [place], [place] [id number] Opal Arteaga PsyD [address] [place] [address] 08/19/2025 9:45 AM ESTEvaluation [facility] [address], [address] [place] [address] Dahiana Shankar, [employer] [address] [place] [address] documented as of this encounter Goals GoalPatient Goal TypeAssociated ProblemsRecent ProgressPatient-Stated?Author Alem Mitchell, MARGARETH Note: 04/14/21 Plan menus 3 days at a time. Log food in [employer]. documented as of this encounter Visit Diagnoses Diagnosis Atypical eating disorder- Primary Insulin resistance Other abnormal glucose Obesity, Class I, BMI 30-34.9 BMI 33.0-33.9,adult Vitamin D deficiency Vitamin B6 deficiency Iron deficiency Disorders of iron metabolism Depression, unspecified depression type documented in this encounter Additional Health Concerns AssessmentNoted TimePHQ-9 Depression Total Score: 6108/31/2019 7:00 AM ESTPHQ-2 Depression Total Score: 7:00 AM ESTdocumented as of this encounter Care Teams Team MemberRelationshipSpecialtyStart DateEnd Date No, Physician [facility] PCP - General01/03/25 Rochelle Martinez LPC Independent ClinicianBehavioral Health08/24/19documented as of this encounter
--- OUTSIDE RECORDS SUMMARY | 2025-06-18 10:00 | XMS_ITS | Encounter Summary ---
Author Organization [facility] Address [address] [place] [address] Care Team Providers Care Recreation Instructor Name Role Phone Marcia Hooker MD Primary Care Provider [phone] Encounter Details DateTypeDepartmentCare Team (Latest Contact Info)Ryzrnvfjszg71/04/2025 10:00 AM ESTOffice Visit [facility] [address] [place] [id number] Luis Viveros DO [address] [place]ol [place], [facility]11 Well woman exam with routine gynecological exam; Herpes simplex; H/O malignant neoplasm of female breast; Encounter for screening mammogram for malignant neoplasm of breast Social History Tobacco UseTypesPacks/DayYears UsedDateSmoking Tobacco: Never Assessed CommentsUnknownSex and Gender InformationValueDate RecordedSex Assigned at Not on fileLegal ZszWlonox71/15/2023 6:43 PM EDTGender IdentityNot on fileSexual OrientationNot on filedocumented as of this encounter Last Filed Vital Signs Vital SignReadingTime TakenCommentsBlood Cijwnpym766/8806/18/2025 10:42 AM EST Pulse--Temperature--Respiratory Rate--Oxygen Saturation--Inhaled Oxygen Concentration--Tfxgzm07.4 kg (201 lb 6.4 oz)06/18/2025 10:42 AM ESTHeight--Body Mass Index32.511 9:23 AM EDTdocumented in this encounter Plan of Treatment DateTypeDepartmentCare Team (Latest Contact Info)Hmmddkwbebn29/10/2026 11:00 AM ESTProcedure Visit [facility] [address] [place] [address] Luis Viveros DO [address] [place] [address] NameTypePriorityAssociated DiagnosesOrder SchedulePap SmearPathology and CytologyRoutine Well woman exam with routine gynecological exam Ordered: 06/18/2025HPV DNA probe, amplifiedMicrobiologyRoutine Well woman exam with routine gynecological exam Ordered: 06/18/2025SURESWAB(R) ADVANCED VAGINITIS PLUS, TMAPathology and CytologyRoutine Well woman exam with routine gynecological exam Ordered: 06/18/2025HLAMYDIA TRACHOMATIS (GENITO/STI)LabRoutine Well woman exam with routine gynecological exam Ordered: 06/18/2025Neisseria gonorrhea DNA probe, directLabRoutine Well woman exam with routine gynecological exam Ordered: 06/18/2025ilateral screening mammogramImagingRoutine H/O malignant neoplasm of female breast Encounter for screening mammogram for malignant neoplasm of breast Expected: 06/18/2025 (Approximate), Expires: 08/18/2026documented as of this encounter Visit Diagnoses Diagnosis Well woman exam with routine gynecological exam Routine gynecological examination Herpes simplex Herpes simplex without mention of complication H/O malignant neoplasm of female breast Encounter for screening mammogram for malignant neoplasm of breast documented in this encounter Care Teams Team MemberRelationshipSpecialtyStart DateEnd Date Marcia Hooker MD [address] [facility] [place] [address] PCP - GeneralFamily Ulyawsoa65/30/23documented as of this encounter
--- OUTSIDE RECORDS SUMMARY | 2025-06-18 18:50 | XMS_ITS | Encounter Summary ---
Author Organization [facility] Address [address] [place] [address] Care Team Providers Care Route Delivery Supervisor Name Role Phone Rochelle Martinez LPC Unavailable Unavailable No, Physician Primary Care Provider Unavailabl e Encounter Details DateTypeDepartmentCare Team (Latest Contact Info)Pxjgumbhndr19/03/2025Travel Social History Tobacco UseTypesPacks/DayYears UsedDateSmoking Tobacco: NeverSmokeless Tobacco: NeverAlcohol UseStandard Drinks/WeekCommentsYes0 (1 standard drink = 0.6 oz pure alcohol)AUDIT-CAnswerDate RecordedQ1: How often do you have a drink containing alcohol?Monthly or less08/29/2020Q2: How many drinks containing alcohol do you have on a typical day when you are drinking?Not asked08/29/2020Q3: How often do you have six or more drinks on one occasion?Not asked08/29/2020HQ-2AnswerDate RecordedPHQ-9 Total Qpwhe36908/31/2019CommentsUnknownSex and Gender InformationValueDate RecordedSex Assigned at BirthNot on fileLegal SexFemale 10/01/2018 2:54 PM ESTGender UmchmthqVgoltg64/05/2019 2:28 PM EDTSexual VfqosktqayfVirgsrdw96/05/2019 2:28 PM EDTdocumented as of this encounter Plan of Treatment DateTypeDepartmentCare Team (Latest Contact Info)Frmsmiicgdy04/05/2026 8:30 AM ESTTreatment [facility] Management [address] [facility], [address] [place] [address] Opal Arteaga, PsyD [address] [place] [address] 08/19/2025 9:45 AM ESTEvaluation [facility] [address], [address] [place] [address] Dahiana Shankar, SURVEY RESEARCH PROFESSOR [address] [place] [address] documented as of this encounter Goals GoalPatient Goal TypeAssociated ProblemsRecent ProgressPatient-Stated?Author Alem Mitchell, RD Note: 04/14/21 Plan menus 3 days at a time. Log food in [employer]. documented as of this encounter Visit Diagnoses Not on filedocumented in this encounter Additional Health Concerns AssessmentNoted TimePHQ-9 Depression Total Score: 6108/31/2019 7:00 AM ESTPHQ-2 Depression Total Score: 7:00 AM ESTdocumented as of this encounter Care Teams Team MemberRelationshipSpecialtyStart DateEnd Date No, Physician [facility] PCP - General01/03/25 Rochelle Martinez LPC Independent ClinicianBehavioral Health08/24/19documented as of this encounter
--- OUTSIDE RECORDS SUMMARY | 2025-06-18 18:50 | XMS_ITS | Clinical Summary ---
Author Organization [facility] Address [address] [place] [address] Care Team Providers Care Ware Carrier Name Role Phone Rochelle Martinez LPC Unavailable Unavailable No, Physician Primary Care Provider Unavailabl e Allergies No known active allergies Medications MedicationSigDispense QuantityRefillsLast FilledStart DateEnd DateStatus pyridoxine, vitamin B6, (vitamin B-6) 25 MG tablet Indications:Vitamin B6 deficiencyTake 1 (one) tablet (25 mg total) by mouth daily . 30 tablet ctive Additional Information Patient not taking.Reported on 12/10/2024 budesonide-formoteroL (Symbicort) 80-4.5 mcg/actuation inhaler Indications:Mild intermittent asthma, unspecified whether complicatedInhale 2 (two) puffs 2 (two) times a day . 1 each ctive Additional Information Patient not taking.Reported on 12/10/2024 inhaler, assist devices (OPTICHAMBER ADVANTAGE) Spcr Indications:Mild intermittent asthma, unspecified whether complicatedAs directed . 1 each 06/02/2021ctive albuterol 90 mcg/actuation inhaler Indications:CoughInhale 2 (two) puffs every 6 (six) hours as needed for shortness of breath or cough . 18 g 06/08/2021ctive ondansetron (ZOFRAN-ODT) 4 MG disintegrating tablet Dissolve 1 (one) tablet (4 mg total) on top of tongue every 8 (eight) hours as needed for nausea . 20 tablet 11/30/2021ctive Additional Information Patient not taking.Reported on 12/10/2024 ferrous sulfate 325 (65 FE) MG tablet Indications:Iron deficiencyTake 1 (one) tablet (325 mg total) by mouth every other day Take with 500mg of vitamin c . 15 tablet 2Active Additional Information Patient not taking.Reported on 12/10/2024 furosemide (LASIX) 20 MG tablet Indications:edemaTake 1 (one) tablet (20 mg total) by mouth daily as needed Reasons: visible water retention.Active levothyroxine (SYNTHROID, LEVOTHROID) 150 MCG tablet Take 1 (one) tablet (150 mcg total) by mouth once daily . 30 tablet 3Active Additional Information Patient taking differently:137 mcg Oral Daily,Takes 137 MCG, Reported on 06/17/2025 ergocalciferol (ERGOCALCIFEROL) 1,250 mcg (50,000 unit) capsule Indications:Vitamin D deficiencyTake 1 (one) capsule (50,000 Units total) by mouth twice weekly Take with 500mg vitamin c and fattymeal . 8 capsule ctive Additional Information Patient not taking.Reported on 12/10/2024 senna-docusate (SENNA-S) 8.6-50 mg Indications:Constipation, unspecified constipation typeTake 1 (one) tablet by mouth daily . 30 tablet 4Active cyanocobalamin, vitamin B-12, 1,000 mcg Subl Indications:Insulin resistancePlace 1 (one) tablet (1,000 mcg total) under the tongue daily . 30 tablet 5Active Additional Information Patient not taking.Reported on 03/12/2025 buPROPion (WELLBUTRIN XL) 150 MG 24 hr tablet Indications:Atypical eating disorderTake 1 (one) tablet (150 mg total) by mouth daily . 30 tablet 5Active dulaglutide (Trulicity) 4.5 mg/0.5 mL Pen Indications:Insulin resistanceInject 0.5 mL (4.5 mg total) under the skin every 7 days . 2 mL 5Active zonisamide (ZONEGRAN) 100 MG capsule Indications:Atypical eating disorderTake 1 (one) capsule (100 mg total) by mouth once daily Take in evening . 30 capsule 5Active sertraline (ZOLOFT) 25 MG tablet Indications:Depression, unspecified depression typeTake 1 (one) tablet (25 mg total) by mouth nightly . 30 tablet 5Active phentermine (ADIPEX-P) 37.5 mg tablet Indications:Obesity, Class I, BMI 30-34.9Take 1 (one) tablet (37.5 mg total) by mouth every morning (Days supply per fill: 30) BMI 35.11 now32.6, maintenance, current weight 195 lbs . 30 tablet 5Active buPROPion (WELLBUTRIN XL) 150 MG 24 hr tablet Indications:Atypical eating disorderTake 1 (one) tablet (150 mg total) by mouth daily . 30 tablet Discontinued(Reorder (Suppress CancelRx Message to Pharmacy)) phentermine (ADIPEX-P) 37.5 mg tablet Indications:Obesity, Class I, BMI 30-34.9Take 1 (one) tablet (37.5 mg total) by mouth every morning (Days supply per fill: 30) BMI 35.11 now32.6, maintenance, current weight 195 lbs . 30 tablet Discontinued(Reorder (Suppress CancelRx Message to Pharmacy)) dulaglutide (Trulicity) 4.5 mg/0.5 mL Pen Indications:Insulin resistanceInject 0.5 mL (4.5 mg total) under the skin every 7 days . 2 mL Discontinued(Reorder (Suppress CancelRx Message to Pharmacy)) sertraline (ZOLOFT) 25 MG tablet Indications:Depression, unspecified depression typeTake 1 (one) tablet (25 mg total) by mouth nightly . 30 tablet Discontinued(Reorder (Suppress CancelRx Message to Pharmacy)) zonisamide (ZONEGRAN) 100 MG capsule Indications:Atypical eating disorderTake 1 (one) capsule (100 mg total) by mouth once daily Take in evening . 30 capsule Discontinued(Reorder (Suppress CancelRx Message to Pharmacy)) Active Problems ProblemNoted DateDiagnosed DateRectal unarhlad08/14/2022 Assessment & Plan (08/28/2021 10:12 AM EST): This may have been in the setting of the internal hemorrhoids. With her concern and significant family history of colon cancer I did recommend her for diagnostic colonoscopy. Internal nszappvocni19/14/2022 Assessment & Plan (08/28/2021 10:10 AM EST): This is a chronic problem, it is [...] recommend that she takes the Colace daily. Cough06/08/2021 Assessment & Plan (06/08/2021 2:03 PM EDT): 6 weeks s/p viral upper respiratory infection. Her weight loss provider did order a PFT and startedher on Symbicort fo asthma. I reviewed the PFT, concern for small airway disease with response to abronchodilator. I prescribed a short acting beta iraida today along with some as needed cough medication. Sleep sywbuftnmdn83/24/2020 Assessment & Plan (06/09/2020 9:47 AM EDT): Use the Ambien as needed for sleep disturbance Assessment & Plan (05/06/2020 7:43 AM EDT): Medications like Ambien effects the central nervous system placing you at higher risk for fall, dependence, possible overdose, and . Reported side effects include dizziness, weakness, loss of coordination, daytime drowsiness, nasal congestion, nausea,vomiting, diarrhea, constipation, headache,muscle pain, confusion, walking and eating during sleep, and visual changes. Risk and benefit of taking this medication has been discussed. Assessment & Plan (04/13/2020 6:36 PM EDT): Sleep hygiene measures including regular sleep schedule, optimal sleep environment, and relaxing presleep rituals. Avoid daytime naps. Avoid caffeine after noon. Avoid excess alcohol. Avoid tobacco. Recommended daily exercise. Assessment & Plan (03/23/2020 8:35 PM EDT): Use the Ambien as needed when your significant other is at home to keep an eye on your child. A good nights rest is essential for weight loss and making healthy food choices. Assessment & Plan (03/07/2020 4:46 PM EDT): Trial the Ambien to see if this helps with your sleep patterns. Take this around 10 am. Atypical eating smzyofjr54/09/2020 Assessment & Plan (10/04/2020 10:00 AM EST): Diet:??1836-1151 calories per day with a goal of 120 g/day protein and 60 g/day carbs? Exercise Prescription:??3 days per week for 30 minutes- Goal 150 minutes per week ?? Counselor/Therapist:??Complete your nutrition evaluation and education at [facility] ?? Behavioral Lifestylechanges to eating patterns and macronutrient composition as well as activity levels discussed in detail ?? Medications:??Wellbutrin 300 daily, Topamax??75 BID, synthroid??225 ?? Follow-up:??4??weeks Assessment & Plan (08/29/2020 8:04 AM EST): Diet:??8562-3098 calories per day with a goal of 120 g/day protein and 60 g/day carbs? Exercise Prescription:??3 days per week for 30 minutes- Goal 150 minutes per week ?? Counselor/Therapist:??Complete your nutrition evaluation and education at [facility] ?? Behavioral Lifestylechanges to eating patterns and macronutrient composition as well as activity levels discussed in detail ?? Medications:??Wellbutrin 300 daily, Topamax??75 BID, synthroid??225 ?? Follow-up:??4??weeks Assessment & Plan (07/29/2020 7:10 AM EST): Diet:??0647-0028 calories per day with a goal of 120 g/day protein and 60 g/day carbs? Exercise Prescription:??3 days per week for 30 minutes- Goal 150 minutes per week ?? Counselor/Therapist:??Complete your nutrition evaluation and education at [facility] ?? Behavioral Lifestylechanges to eating patterns and macronutrient composition as well as activity levels discussed in detail ?? Medications:??Wellbutrin 300 daily, Topamax??50 BID, synthroid??225 ?? Follow-up:??4??weeks Assessment & Plan (07/01/2020 7:13 AM EST): Diet:??1741-9771 calories per day with a goal of 120 g/day protein and 60 g/day carbs? Exercise Prescription:??3 days per week for 30 minutes- Goal 150 minutes per week ?? Counselor/Therapist:??Complete your nutrition evaluation and education at [facility] ?? Behavioral Lifestylechanges to eating patterns and macronutrient composition as well as activity levels discussed in detail ?? Medications:??Wellbutrin 300 daily, Topamax??50 BID, synthroid??225 ?? Follow-up:??4??weeks Assessment & Plan (06/09/2020 9:46 AM EDT): Diet:??2711-1691 calories per day with a goal of 120 g/day protein and 60 g/day carbs? Exercise Prescription:??3 days per week for 30 minutes- Goal 150 minutes per week ?? Counselor/Therapist:??Complete your nutrition evaluation and education at [facility] ?? Behavioral Lifestylechanges to eating patterns and macronutrient composition as well as activity levels discussed in detail ?? Medications:??Wellbutrin 300 daily, Topamax??50 BID, synthroid??225??and phentermine round??3 ?? Follow-up:??4 weeks Assessment & Plan (05/06/2020 7:41 AM EDT): Diet:??4472-3272 calories per day with a goal of 120 g/day protein and 60 g/day carbs? Exercise Prescription:??3 days per week for 30 minutes- Goal 150 minutes per week ?? Counselor/Therapist:??Complete your nutrition evaluation and education at [facility] ?? Behavioral Lifestylechanges to eating patterns and macronutrient composition as well as activity levels discussed in detail ?? Medications:??Wellbutrin 300 daily, Topamax??50 BID, synthroid??225??and phentermine round 3 ?? Follow-up:??4 weeks?? Assessment & Plan (04/13/2020 6:34 PM EDT): Diet:??1262-0880 calories per day with a goal of 120 g/day protein and 60 g/day carbs? Exercise Prescription:??3 days per week for 30 minutes- Goal 150 minutes per week ?? Counselor/Therapist:??Complete your nutrition evaluation and education at [facility] ?? Behavioral Lifestylechanges to eating patterns and macronutrient composition as well as activity levels discussed in detail ?? Medications:??Wellbutrin 300 daily, Topamax 50 BID, synthroid??225 and phentermine round 2 ?? Follow-up:??2 weeks?? Assessment & Plan (03/23/2020 8:35 PM EDT): Diet:??9271-3964 calories per day with a goal of 120 g/day protein and 60 g/day carbs? Exercise Prescription:??3 days per week for 30 minutes- Goal 150 minutes per week ?? Counselor/Therapist:??Complete your nutrition evaluation and education at [facility] ?? Behavioral Lifestylechanges to eating patterns and macronutrient composition as well as activity levels discussed in detail ?? Medications:??Wellbutrin 300 daily, Topamax 50 BID, synthroid??225 and phentermine round 1 ?? Follow-up:??2 weeks?? Assessment & Plan (03/07/2020 4:16 PM EDT): Diet:??9536-6673 calories per day with a goal of 120 g/day protein and 60 g/day carbs? Exercise Prescription:??3 days per week for 30 minutes- Goal 150 minutes per week ?? Counselor/Therapist: Complete your nutrition evaluation and education at [facility] ?? Behavioral Lifestylechanges to eating patterns and macronutrient composition as well as activity levels discussed in detail ?? Medications:??Wellbutrin 300 daily, Topamax 25 daily, synthroid??225. Topamax increased to 50 twicedaily ?? Follow-up:??2 weeks?? Assessment & Plan (02/24/2020 7:02 PM EDT): Diet:??7312-5339 calories per day with a goal of 120 g/day protein and 60 g/day carbs? Exercise Prescription:??3 days per week for 30 minutes- Goal 150 minutes per week ?? Counselor/Therapist: Complete your nutrition evaluation and education at [facility] ?? Behavioral Lifestylechanges to eating patterns and macronutrient composition as well as activity levels discussed in detail ?? Medications:??Wellbutrin 300 daily, Topamax 25 daily, synthroid 225. Topamax increased to 50 twice daily ?? Follow-up:??2 weeks?? Xygvrhqz78/07/2020 Assessment & Plan (10/03/2020 7:21 AM EST): Continue meds as prescribed, watch diet, and increase activity as able to tolerate. Assessment & Plan (08/29/2020 8:05 AM EST): I have increased your Topamax to 75 mg twice daily to help with migraine and cravings Assessment & Plan (03/23/2020 8:36 PM EDT): Continue meds as prescribed, watch diet, and increase activity as able to tolerate. Assessment & Plan (12/20/2019 2:55 PM EDT): - chronic, uncontrolled lately. Restarted Topamax. Can continue Excedrin and ibuprofen. This is likely a classic migraine. Will add sumatriptan to help when otc medications are not helping. discussedside effects. She has been on this before and tolerated it well. Leg /10/2020 Assessment & Plan (11/16/2019 1:40 PM EDT): - improving, likely venous stasis in the setting of obesity and stationary job. We discussed getting up and moving more during the today as well as weight loss and use of compression hose Assessment & Plan (08/24/2019 3:06 PM EST): -This is a chronic problem but the left leg is slightly larger. We will check for DVT. We will recheck thyroid levels. With no SOB or chest pain, will hold off on any cardiac work up at this time. Anxiety and yrsuxwydhl66/10/2020 Assessment & Plan (06/08/2021 2:01 PM EDT): Chronic. She is wanting to continue the Buspar which I refilled per request. She was started on Zoloft and states she is still on Wellbutrin as well. May need to discussed management by either myselfor weight loss provider but not both. Assessment & Plan (11/12/2020 11:39 AM EDT): We discussed risk of libido changes with SSRI's. You did not have this affect on the 20 mg dose, soI recommend that you go back to that dose. I have prescribed Buspar to be taken as needed or daily if you'd like. We discussed mindfulness techniques as well. The Wellbutrin can worsen your anxiety, consider discontinuing and trying another weight loss medication. Assessment & Plan (08/29/2020 7:26 AM EST): Continue meds as prescribed, watch diet, and increase activity as able to tolerate. Assessment & Plan (07/29/2020 7:12 AM EST): Continue meds as prescribed, watch diet, and increase activity as able to tolerate. Assessment & Plan (07/01/2020 7:14 AM EST): Continue meds as prescribed, watch diet, and increase activity as able to tolerate. Assessment & Plan (06/09/2020 9:47 AM EDT): Continue meds as prescribed, watch diet, and increase activity as able to tolerate. Assessment & Plan (05/06/2020 7:43 AM EDT): Continue meds as prescribed, watch diet, and increase activity as able to tolerate. Assessment & Plan (04/23/2020 5:23 PM EDT): Chronic, handling her moods better however several stressors still present her life. Wellbutrin switched to extended release to help with adherence. Assessment & Plan (04/13/2020 6:35 PM EDT): Consider therapy with Rochelle in this office to discuss your stressors related to your relationshipwith your significant other and family. Continue working on self improvement. Assessment & Plan (02/24/2020 7:02 PM EDT): Continue meds as prescribed, watch diet, and increase activity as able to tolerate. Assessment & Plan (02/11/2020 9:06 AM EDT): Continue meds as prescribed, watch diet, and increase activity as able to tolerate. Assessment & Plan (12/20/2019 2:58 PM EDT): - HILARY 7 score is 18 was 8 last visit. Fluctuating. Would benefit from therapy but patient resistant. Also has a stressful relationship with infidelity. Did not tolerate Effexor, decision made to go back on Wellbutrin. Increased from 75 BID to 100 BID last visit. Can increase but recommend behavorial therapy. Her anxiety worsen with situations. Spent 30 minutes face to face time, over half of which was counseling and coordination of care time, discussing her stress and triggers. Reviewing mindfulness and improving outcomes that only she can control. Assessment & Plan (11/16/2019 1:40 PM EDT): - HILARY 7 score is 8, was 19 last visit. Did not tolerate Effexor, decision made to go back on Wellbutrin. Doing well and there is room for improvement so we will increase it to 100 mg twice a day. Assessment & Plan (08/24/2019 3:02 PM EST): -This is a chronic problem, currently uncontrolled. [...] did refer her at this time to fruit raiser. Being that most of her anxiety is situational she would benefit from discussing coping mechanisms and improving her thoughts about herself. 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 We discussed taking all of our pills on one day to help with adherence.We discussed risk of uncontrolled hypothyroidism. This will affect your weight loss, mood and your menstrual cycle. Assessment & Plan (10/03/2020 7:22 AM EST): Continue meds as prescribed, watch diet, and increase activity as able to tolerate. Assessment & Plan (08/29/2020 7:26 AM EST): Continue meds as prescribed, watch diet, and increase activity as able to tolerate. Assessment & Plan (08/04/2020 3:43 PM EST): This is a chronic problem you are currently taking Synthroid. We will check your thyroid levels to see if you are causing any issues with your menstrual cycles. Assessment & Plan (07/29/2020 7:14 AM EST): You will need to have your thyroid level rechecked to make sure you are on the correct dose of levothyroxine. Assessment & Plan (07/01/2020 7:14 AM EST): Continue meds as prescribed, watch diet, and increase activity as able to tolerate. Assessment & Plan (06/09/2020 9:46 AM EDT): Continue meds as prescribed, watch diet, and increase activity as able to tolerate. Assessment & Plan (05/06/2020 7:43 AM EDT): Continue meds as prescribed, watch diet, and increase activity as able to tolerate. Assessment & Plan (04/23/2020 5:22 PM EDT): May be contributing to her hair loss. Will get TSH and T4 levels. She is taking medications as prescribed. Assessment & Plan (02/24/2020 7:02 PM EDT): Continue meds as prescribed, watch diet, and increase activity as able to tolerate. Assessment & Plan (02/11/2020 9:50 AM EDT): Continue meds as prescribed, watch diet, and increase activity as able to tolerate. It is essential that you take your medication daily as prescribed to maintain a stable thyroid level to help with your anxiety and weight Assessment & Plan (12/20/2019 2:13 PM EDT): - chronic, uncontrolled due to patient nonadherence. Encouraged to take medication as prescribed. Needs labs completed. May be worsening her anxiety. Assessment & Plan (11/16/2019 1:31 PM EDT): -Chronic, uncontrolled secondary nonadherence. reiterated the importance of taking medication on time reviewed with her tachycardia today and her increased weight gain. Continue at 225 MCG's. Will repeat labs in 4 weeks. Assessment & Plan (08/24/2019 2:59 PM EST): -Acquired after radiation. Her TSH has been difficult to control. We will repeat labs today. If elevated will increase her Synthroid. We will also refer her to endocrinology. Currently on 200 MCG's will increase it to 225. Assessment & Plan (04/10/2019 2:58 PM EDT): -This is secondary to radiation after Hodgkin's [...] can come in and be checked sooner. Obesity, Class II, BMI 35-39.9010/01/2018 Assessment & Plan (10/03/2020 7:20 AM EST): Continue the currently prescribed calorie load and composition Assessment & Plan (08/29/2020 7:26 AM EST): Continue the currently prescribed calorie load and composition Assessment & Plan (07/29/2020 7:11 AM EST): Continue the currently prescribed calorie load and composition Assessment & Plan (07/01/2020 7:14 AM EST): Continue the currently prescribed calorie load and composition Assessment & Plan (06/09/2020 9:47 AM EDT): Continue the currently prescribed calorie load and composition Assessment & Plan (04/13/2020 6:35 PM EDT): Continue the currently prescribed calorie load and composition Assessment & Plan (03/23/2020 8:36 PM EDT): Continue the currently prescribed calorie load and composition Assessment & Plan (03/07/2020 4:16 PM EDT): Continue the currently prescribed calorie load and composition Assessment & Plan (02/24/2020 7:02 PM EDT): Continue the currently prescribed calorie load and composition. Assessment & Plan (12/20/2019 2:59 PM EDT): - multifactorial in the setting of poor dietary choices, stress and abnormal thyroid. Taking her synthroid more consistently now, will check labs. Increased her Wellbutrin with hopes it may improve her mood and decrease over indulgence in food. Hodgkin's wuberzd3910/25/2011 Resolved Problems ProblemNoted DateDiagnosed DateResolved DateAnnual physical exam11/12/2020 06/08/2021 Assessment & Plan (11/12/2020 11:36 AM EDT): -Counseled on healthy diet. -Counseled on importance of exercise - 150mins/ week of moderate activity as tolerated -Lab screening for hyperlipidemia, A1C for diabetes ordered -Discussed pap recommendations/follow up: will complete next visit due to menses -Discussed breast cancer screening: breast exam completed today -Discussed colon cancer screening: age 52 Vaginal nnzoewng46/21/332956/ Assessment & Plan (08/04/2020 3:42 PM EST): On physical exam today there was blood [...] as well. STD testing was done today. Insulin zgsfplezbs41/24/202009/ Assessment & Plan (03/09/2020 8:58 PM EDT): Continue the currently prescribed calorie load and composition Weight gain/04/2020 Assessment & Plan (02/08/2020 11:10 AM EDT): Diet: 1628-3307 calories per day with a goal of 120 g/day protein and 60 g/day carbs Exercise Prescription: 3 days per week for 30 minutes- Goal 150 minutes per week Counselor/Therapist: I have placed a referral to the silk screen painter, their office will call you to schedule Behavioral Lifestylechanges to eating patterns and macronutrient composition as well as activity levels discussed in detail Medications: Wellbutrin 300 daily, Topamax 25 daily, synthroid Follow-up: 2 weeks Ovavclmhwyhwjvz63/10/202004/10/2019 Assessment & Plan (08/24/2019 3:07 PM EST): -She is noted to have right-sided lymphadenopathy today. She does have a history of non-Hodgkin's and from a status post radiation and chemo. She also has a history of breast cyst that have been evaluated in the past with mammograms. This time I will refer her to our breast center for diagnostic mammogram and possible ultrasound on the right side. Tenosynovitis of right wrist Assessment & Plan (04/10/2019 2:57 PM EDT): -This is a new problem likely secondary to increased use with her . We discussed resting herwrist as much as possible. As well as utilizing a brace to help. She is to ice and use ibuprofen asneeded. I reiterate that this may take time to resolve due to her chronic use with a baby. Encounters DateTypeDepartmentCare HtamHmqoxmehyzt53/03/2025 9:45 AM ESTEvaluation [facility] [address] [facility], [address] [address] Dahiana Shankar, [place] Atypical eating disorder (Primary Dx); Insulin resistance; Obesity, Class I, BMI 30-34.9; BMI 33.0-33.9,adult; Vitamin D deficiency; Vitamin B6 deficiency; Iron deficiency; Depression, unspecified depression type06/17/20257724Fkdtfj91/01/2025Documentation [facility] [address] [place] [id number] Opal Arteaga PsyD No Show05/14/20257325Otawuq70/03/2025 2:00 PM EDTTelemedicine [facility] [address] [facility], [address] [address] Opal Arteaga PsyD Class 2 obesity (Primary Dx); BMI 32.0-32.9,adult; Psychological factors affecting medical bxwetqyfo66/02/2025 9:45 AM EDT Evaluation [facility] [address] [facility], [address] [address] Dahiana Shankar CNP Atypical eating disorder (Primary Dx); Insulin resistance; Obesity, Class I, BMI 30-34.9; BMI 32.0-32.9,adult; Vitamin D deficiency; Vitamin B6 deficiency; Iron deficiency; Depression, unspecified depression type04/16/20257027Qfgirr86/01/2025Travelfrom Last 3 Months Immunizations ImmunizationAdministration DatesNext DueINFLUENZA IIV4 6MO OR > FLUARIX/FLUZONE/AFLURIA [id number] Whole08/31/2013,07/28/2012 Influenza, Hmhvdydtjka23/17/9233Jkxa42/25/2013 Family History Medical HistoryRelationCommentsChiari malformationFatherDepressionFatherDiabetes FatherAlcohol abuseMaternal GrandfatherColon cancerMaternal Grandfather DepressionMotherHypothyroidismMotherColon cancerPaternal GrandmotherDiabetes Paternal GrandmotherRelationStatusCommentsFatherAliveMaternal GrandfatherMother AlivePaternal Grandmother Social History Tobacco UseTypesPacks/DayYears UsedDateSmoking Tobacco: NeverSmokeless Tobacco: Never Tobacco Cessation:Counseling Given: Not Answered Alcohol UseStandard Drinks/WeekCommentsYes0 (1 standard drink = 0.6 oz pure alcohol)AUDIT-CAnswerDate RecordedQ1: How often do you have a drink containing alcohol?Monthly or less08/29/2020Q2: How many drinks containing alcohol do you have on a typical day when you are drinking?Not asked08/29/2020Q3: How often do you have six or more drinks on one occasion?Not asked08/29/2020HQ-2AnswerDate RecordedPHQ-9 Total Dproj95608/31/2019CommentsUnknownSex and Gender InformationValueDate RecordedSex Assigned at BirthNot on fileLegal SexFemale 10/01/2018 2:54 PM ESTGender RnjpchnrIeurzt96/05/2019 2:28 PM EDTSexual JoxcmyempymUyjmzzbw12/05/2019 2:28 PM EDT Last Filed Vital Signs Vital SignReadingTime TakenCommentsBlood Kbodtxro798/7106/17/2025 9:47 AM EST Bxevf10652/03/2025 9:47 AM PVEDgzpygevgun52 ??C (55.4 ??F)01/06/2022 12:26 PM EDTRespiratory Aeba223308/28/2021 9:17 AM ESTOxygen Zpxjsafwjv35%06/17/2025 9:47 AM ESTInhaled Oxygen Concentration--Ifibxw34.3 kg (201 lb 4.8 oz)06/17/2025 9:47 AM WGQVvukli064.1 cm (5' 5 )06/17/2025 9:47 AM ESTBody Mass Index33. 9:47 AM EST Plan of Treatment DateTypeDepartmentCare Team (Latest Contact Info)Cognyatfcre59/05/2026 8:30 AM ESTTreatment [facility] [address], [address] [place] [address] Opal Arteaga, PsyD [address] [place] [address] 08/19/2025 9:45 AM ESTEvaluation [facility] [address], [address] [place] [address] Dahiana Shankar, GRAIN ELEVATOR MOTOR STARTER [address] [place], [place] [id number] Health MaintenanceDue DateLast DoneCommentsMMR Vaccines (1 of 1 - Standard series)1988COVID-19 Vaccine (#1)1992Varicella Vaccines (1 of 2 - 13+ 2-dose series)2000Hepatitis B Vaccines (1 of 3 - 19+ 3-dose series) 2006Pneumococcal Vaccine (1 of 2 - PCV)2006Zoster Vaccines (1 of 2) 2006HPV Vaccines (1 - Risk 3-dose SCDM series)2014HPV/Cotest 2017Depression Screening/Follow-Up (PHQ-2/9)/ Tetanus/Diphtheria/Pertussis (2 - Td or Tdap)Influenza Vaccine (#1)5004/23/2020, 08/31/2013, 08/31/2013, Additional history existsWellness Visit, 06/13/2023, 11/12/2020, Additional history existsCervical Cancer Qrafeuxgs45/30/2026Pap Smear61 RSV Vaccines (1 - 1-dose 75+ series)2062Hepatitis C ScreeningCompleted 11/12/2020HIV EaojggevaNqjvhtvucblp88/14/2023HIB VaccinesAged OutNo longer eligible based on patient's age to complete this topicHepatitis A VaccinesAged OutNo longer eligible based on patient's age to complete this topicIPV Vaccines Aged OutNo longer eligible based on patient's age to complete this topic Meningococcal ACWY VaccineAged OutNo longer eligible based on patient's age to complete this topicMeningococcal B VaccineAged OutNo longer eligible based on patient's age to complete this topicRotavirus VaccinesAged OutNo longer eligible based on patient's age to complete this topic Goals GoalPatient Goal TypeAssociated ProblemsRecent ProgressPatient-Stated?Author Alem Mitchell, MARGARETH Note: 04/14/21 Plan menus 3 days at a time. Log food in [employer]. Procedures Procedure NamePriorityDate/TimeAssociated DiagnosisCommentsHEPATITIS C ANTIBODY Ugvioym1211/12/2020 10:57 AM EDT Annual physical exam from Last 3 Months or Most Recently Relevant to Health Maintenance Results * Hepatitis C Antibody (11/12/2020 10:57 AM EDT)ComponentValueRef RangeTest MethodAnalysis TimePerformed AtPathologist SignatureHepatitis C AbNegative Xtsbhvqa95/01/2021 10:45 AM EDTROHIOHEALTH [facility] LABSpecimen (Source)Anatomical Location / LateralityCollection Method / VolumeCollection TimeReceived TimeBloodBLOOD SPECIMEN / UnknownVenipuncture / Xygpcbp8911/12/2020 10:57 AM EDT11/12/2020 10:57 AM EDT Narrative [facility] - 11/13/2020 10:45 AM EDT Test performed using Manohar HAILEE immunoassay system Authorizing ProviderResult TypeResult StatusNancy Junior MDLAB BLOOD ORDERABLES Final ResultPerforming OrganizationAddressCity/State/ZIP CodePhone Number [facility] [address] [place] [address] from Last 3 Months or Most Recently Relevant to Health Maintenance Insurance * Guarantor: Aurora Dhaliwal TypeRelation to PatientDate of BirthPhone Billing LcgootfOvjaddAxza[address] [place] [address] Care Teams Team MemberRelationshipSpecialtyStart DateEnd Date No, Physician [facility] PCP - General01/03/25 Rochelle Martinez LPC Independent ClinicianEn[facility]08/24/19
--- OUTSIDE RECORDS SUMMARY | 2025-06-18 18:50 | XMS_ITS | Clinical Summary ---
Author Organization [facility] Address [address] [place] [address] Care Team Providers Care Works Manager Name Role Phone Marcia Hooker MD Primary Care Provider [phone] Allergies No known active allergies Medications MedicationSigDispense QuantityRefillsLast FilledStart DateEnd DateStatus levothyroxine (Synthroid, Levoxyl) 137 MCG tablet Take 137 mcg by mouth in the morning.01/12/2023ctive buPROPion XL (Wellbutrin XL) 300 MG 24 hr tablet Take 300 mg by mouth in the morning.Active furosemide (Lasix) 20 MG tablet Take 20 mg by mouth in the morning and 20 mg before bedtime.Active zonisamide (Zonegran) 25 MG capsule Take 25 mg by mouth in the morning.05/09/2023ctive valACYclovir (Valtrex) 500 MG tablet Indications:Herpes simplexTake 1 tablet (500 mg) by mouth Daily 30 tablet 5Active Encounters DateTypeDepartmentCare RjlcPtfoapeqxkm23/04/2025 10:00 AM ESTOffice Visit [facility] [address] [place] [address] Luis Viveros DO Well woman exam with routine gynecological exam; Herpes simplex; H/O malignant neoplasm of female breast; Encounter for screening mammogram for malignant neoplasm of mxyroy5606/18/2025 Bamboo flowsheet [facility] [address] [place] [address] Luis Viveros DO 06/18/2025Travelfrom Last 3 Months Family History Medical HistoryRelationNameCommentsDiabetesFatherSkin cancerFatherDiabetes Maternal GrandmotherThyroid diseaseMotherRelationNameStatusCommentsFather Maternal GrandmotherMother Social History Tobacco UseTypesPacks/DayYears UsedDateSmoking Tobacco: Never Assessed CommentsUnknownSex and Gender InformationValueDate RecordedSex Assigned at Not on fileLegal CqyBugoqp80/15/2023 6:43 PM EDTGender IdentityNot on fileSexual OrientationNot on file Last Filed Vital Signs Vital SignReadingTime TakenCommentsBlood Nvcejxlt915/8806/18/2025 10:42 AM EST Pulse--Temperature--Respiratory Rate--Oxygen Saturation--Inhaled Oxygen Concentration--Usweso47.4 kg (201 lb 6.4 oz)06/18/2025 10:42 AM JBKKuxvaw322.6 cm (5' 6 )06/13/2023 9:23 AM EDTBody Mass Index32.511 9:23 AM EDT Plan of Treatment DateTypeDepartmentCare Team (Latest Contact Info)Eifodfdlttv90/10/2026 11:00 AM ESTProcedure Visit [facility] [address] [place] [address] Luis Viveros DO [address] [place] [address] Insurance Care Teams Team MemberRelationshipSpecialtyStart DateEnd Date Marcia Hooker MD [address] [place] [address] [facility] Twcpeejt00/30/23
--- OUTSIDE RECORDS SUMMARY | 2025-06-18 18:51 | XMS_ITS | Encounter Summary ---
Author Organization [facility] Address [address] [place] [address] Care Team Providers Care Reference Data Expert Name Role Phone Marica Hooker MD Primary Care Provider [phone] Encounter Details DateTypeDepartmentCare Team (Latest Contact Info)Hytxemenxeh81/04/2025Travel Social History Tobacco UseTypesPacks/DayYears UsedDateSmoking Tobacco: Never Assessed CommentsUnknownSex and Gender InformationValueDate RecordedSex Assigned at Not on fileLegal MqeVvaluw28/15/2023 6:43 PM EDTGender IdentityNot on fileSexual OrientationNot on filedocumented as of this encounter Plan of Treatment DateTypeDepartmentCare Team (Latest Contact Info)Iklzulayzwx69/10/2026 11:00 AM ESTProcedure Visit [facility] [address] [place] [address] Luis Viveros DO [address] [place] [address] documented as of this encounter Visit Diagnoses Not on filedocumented in this encounter Care Teams Team MemberRelationshipSpecialtyStart DateEnd Date Marcia Hooker MD [address] [place] [place] [address] PCP - GeneralFamily Qmcsvxtu14/30/23documented as of this encounter
--- OUTSIDE RECORDS SUMMARY | 2025-06-18 18:51 | XMS_ITS | Clinical Summary ---
Author Organization [facility] Address [address], [address] [place] [address] Care Team Providers Care Hem Marker Name Role Phone Marcia Hooker DO Primary Care Provider [phone] Allergies No known active allergies Medications MedicationSigDispense QuantityRefillsLast FilledStart DateEnd DateStatus buPROPion (WELLBUTRIN XL) 300 MG extended release tablet Take 1 tablet by mouth daily am11/03/2023ctive furosemide (LASIX) 20 MG tablet Take 1 tablet by mouth 2 times daily11/11/2023ctive sertraline (ZOLOFT) 25 MG tablet Take 1 tablet by mouth ohtxhhp8311/03/2023ctive zonisamide (ZONEGRAN) 50 MG capsule Take 2 capsules by mouth pumaxbh1211/03/2023ctive Dulaglutide (TRULICITY) 4.5 MG/0.5ML SOAJ Inject into the skin once a week TuesdayActive levothyroxine (SYNTHROID) 137 MCG tablet Take 1 tablet by mouth DailyActive ondansetron (ZOFRAN-ODT) 4 MG disintegrating tablet Take 1 tablet by mouth 3 times daily as needed for Nausea or Vomiting 21 tablet 07/26/2024ctive gabapentin (NEURONTIN) 300 MG capsule Indications:Postoperative stateTake 1 capsule by mouth 3 times daily for 10 days. Intended supply: 30 days 30 capsule 08/07/2024ctive isoniazid (NYDRAZID) 300 MG tablet TAKE 3 TABLETS BY MOUTH ONCE A WEEK FOR 28 DAYS12/13/2024tive zonisamide (ZONEGRAN) 100 MG capsule 01/17/2024ctive Active Problems ProblemNoted DateDiagnosed DateS/P geaajuwfdiaxdb21/12/2024 Social History Tobacco UseTypesPacks/DayYears UsedDateSmoking Tobacco: NeverSmokeless Tobacco: Never Tobacco Cessation:Counseling Given: Not Answered Alcohol UseStandard Drinks/WeekCommentsYes0 (1 standard drink = 0.6 oz pure alcohol)very very rarelyInterpersonal Safety Domain Source: IP Abuse Screening AnswerDate RecordedPhysical iuvdnVwhlke59/12/2024Verbal riyycUvqyva87/12/2024 Emotional felnjExrpjq79/12/2024Financial dayycAcixtl53/12/2024Sexual abuseDenies 07/26/2024CommentsNoSex and Gender InformationValueDate RecordedSex Assigned at DkyneHmkwjo90/06/2025 10:28 AM ESTLegal EplDmdmob17/17/2023 2:44 PM EDTGender PziickyzUzttxi76/06/2025 10:28 AM ESTSexual OrientationStraight 07/15/2024 9:05 PM EST Last Filed Vital Signs Vital SignReadingTime TakenCommentsBlood Zbnghgwn453/85002/27/2025 9:51 AM EDT Zpilf5070/16/2025 9:51 AM ZMEIgbpisjfwra57.2 ??C (97.2 ??F)07/26/2024 5:45 PM ESTRespiratory Vpkf160609/26/2024 11:57 AM ESTOxygen Ffapmapjob413%09/19/2024 11:54 AM ESTInhaled Oxygen Concentration--Yhxoiu30.5 kg (199 lb 9.6 oz) 02/27/2025 9:51 AM QMMAabklt555.6 cm (5' 6 )02/27/2025 9:51 AM EDTBody Mass Index32.22002/27/2025 9:51 AM EDT Plan of Treatment DateTypeDepartmentCare Team (Latest Contact Info)Ohlvdbmliip41/17/2025 10:[address] [facility] [address] [facility] [address] [place] [address] [place] [address] [facility] [address] [place] [address] 5mfu panni/abdo DOS 06/28/24ealth MaintenanceDue DateLast DoneComments Depression Lizdov9405/27/1999Varicella vaccine (1 of 2 - 13+ 2-dose series) 2000HIV kxoggt2805/27/2002Hepatitis C fmclel0905/27/2005Hepatitis B vaccine (1 of 3 - 19+ 3-dose series)2006Pap smear2008Cervical cancer screen 2017HPV (without or with Pap)2017Flu vaccine (#1)03/15/2025 04/23/2020, 08/31/2013, 07/28/2012COVID-19 Vaccine ( - 2023- season) 2025DTaP/Tdap/Td vaccine (3 - Td or Tdap)41, 11/06/2012 Diabetes vapvklLanchebnhpjt65/02/2024HPV vaccine (No Doses Required)Completed Hepatitis A vaccineAged OutNo longer eligible based on patient's age to complete this topicHib vaccineAged OutNo longer eligible based on patient's age to complete this topicMeningococcal (ACWY) vaccineAged OutNo longer eligible based on patient's age to complete this topicMeningococcal B vaccineAged OutNo longer eligible based on patient's age to complete this topicPneumococcal 0-49 years VaccineAged OutNo longer eligible based on patient's age to complete this topic Polio vaccineAged OutNo longer eligible based on patient's age to complete this topic Procedures Procedure NamePriorityDate/TimeAssociated DiagnosisCommentsHEMOGLOBIN W2TSjyzydu 07/16/2024 10:20 AM EST Preop testing from Last 3 Months or Most Recently Relevant to Health Maintenance Results * Hemoglobin A1C (07/16/2024 10:20 AM EST)ComponentValueRef RangeTest Method Analysis TimePerformed AtPathologist SignatureHemoglobin A1C4.84.0 - 6.0 % 07/16/2024 10:20 AM ESTMERCY LABORATORIESEstimated Avg Rawkyvk54sm/dL 07/16/2024 10:20 AM ESTMERCY LABORATORIESComment: The ADA and AACC recommend providing the estimated average glucose result to permit better patient understanding of their HBA1c result. Specimen (Source)Anatomical Location / LateralityCollection Method / Volume Collection TimeReceived TimeBloodBLOOD SPECIMEN / Eojifrn0507/16/2024 10:20 AM EST 07/16/2024 11:14 AM EST Narrative Authorizing ProviderResult TypeResult StatusSaebom Jai MDCHEMISTRY ORDERABLES Final ResultPerforming OrganizationAddressCity/State/ZIP CodePhone Number [facility] [address] [place] [address], [facility] [phone] [facility] [employer] [address] [place] [address], [facility] [phone] from Last 3 Months or Most Recently Relevant to Health Maintenance Insurance Care Teams Team MemberRelationshipSpecialtyStart DateEnd Date Marcia Hooker DO [address] [place] [address] PCP - General12/16/23
--- OUTSIDE RECORDS SUMMARY | 2025-06-18 18:51 | XMS_ITS | Encounter Summary ---
Author Organization [facility] Address [address] [facility] [place] [address] Care Team Providers Care Scow Derrick Operator Name Role Phone Marcia Hooker MD Primary Care Provider [phone] Encounter Details DateTypeDepartmentCare Team (Latest Contact Info)Msmeasdziay21/04/2025amboo flowsheet [facility] [address] [place] [address] Luis Viveros DO [address] [place], [place] [address] Social History Tobacco UseTypesPacks/DayYears UsedDateSmoking Tobacco: Never Assessed CommentsUnknownSex and Gender InformationValueDate RecordedSex Assigned at Not on fileLegal AboRmnvym82/15/2023 6:43 PM EDTGender IdentityNot on fileSexual OrientationNot on filedocumented as of this encounter Plan of Treatment DateTypeDepartmentCare Team (Latest Contact Info)Gmmdaoolmbv02/10/2026 11:00 AM ESTProcedure Visit [facility] [address] [place] [address] Luis Viveros DO [address] [place] [address] documented as of this encounter Visit Diagnoses Not on filedocumented in this encounter Care Teams Team MemberRelationshipSpecialtyStart DateEnd Date Marcia Hooker MD [address] [place] [address] PCP - GeneralFamily Xrgvnvbk28/30/23documented as of this encounter
--- OUTSIDE RECORDS SUMMARY | 2025-06-18 18:52 | XMS_ITS | CCD ---
Author Organization [facility] Care Team Providers Care Data Capture Clerk Name Role Phone NICHOLE MCDONNELL Attending Unavailable MARIAM HICKMAN Referring Unavailable KUNS, NEO Primary Care Unavailable Symsonia, Les RJeffy Admitting Unavailable Cyrus Les RJeffy Attending Unavailable KUNS, NEO Primary Care Unavailable Symsonia, Les RJeffy Admitting Unavailable Symsonia, Les RJeffy Attending Unavailable Lisa Lord Attending Unavailable KUNS, NEO Primary Care Unavailable Lisa Lord Admitting Unavailable NO, PHYSICIAN Primary Care Unavailable EMILI EDOUARD Attending Unavailable EMILI EDOUARD Admitting Unavailable EMILI EDOUARD Referring Unavailable NO, PHYSICIAN Primary Care Unavailable Junior, Evi Primary Care Provider Juan, Rochelle Unavailable Unavailable Juan, Rochelle Unavailable Unavailable Juan, Rochelle Unavailable Unavailable Juan, Rochelle Unavailable Unavailable Juan Rochelle Unavailable Unavailable Junior, Evi Primary Care Provider [phone] No, Physician Primary Care Provider Unavailabl e No, Physician Primary Care Provider Unavailabl Santiago Amos Primary Care Provider [phone] Evi Pacheco MD Primary Care Provider [phone] Juan LARA Rochelle Unavailable Unavailable Evi Pacheco MD Primary Care Provider Juan LARA Rochelle Unavailable Unavailable JUNIOR, EVI [...] Primary Care Unavailable LAMBERTO RUSSO Attending Unavailable LMABERTO RUSSO Referring Unavailable JUNIOR, EVI Primary Care Unavailable LAMBERTO RUSSO Attending Unavailable LAMBERTO RUSSO Referring Unavailable JUNIOR, EVI Primary Care Unavailable RUSSOLAMBERTO BELTRE Attending Unavailable RUSSOLAMBERTO BELTRE Referring Unavailable JUNIOR, EVI Primary Care Unavailable JUNIOR, EVI Primary Care Unavailable JUNIOR, EVI Attending Unavailable JUNIOR, EVI Referring Unavailable JUNIOR, EVI Primary Care Unavailable RUSSOLAMBERTO BELTRE Attending Unavailable RUSSOLAMBERTO Referring Unavailable JUNIOR, EVI Primary Care Unavailable Juan COMMUNITY SERVICE REPRESENTATIVE, Rochelle Unavailable Unavailable SELF, SELF Referring Unavailable MARIA GUADALUPE SINGH Attending Unavailable Junior ALATORRE, Evi Primary Care Provider Juan COMMUNITY SERVICE REPRESENTATIVE, Rochelle Unavailable Unavailable JACKELINE, DR ABURTO Attending Unavailable JACKELINE, DR ABURTO Consulting Unavailable REQUEST, DR NONE LISTED Primary Care Unavaila ble JACKELINE, DR ABURTO Admitting Unavailable JACKELINE, DR ABURTO Admitting Unavailable JACKELINE, DR ABURTO Attending Unavailable JACKELINE, DR ABURTO Consulting Unavailable REQUEST, NONE LISTED Primary Care Unavaila MARIA GUADALUPE Larson Consulting Unavailable Junior ALATORRE, Evi Primary Care Provider [phone] Juan COMMUNITY SERVICE REPRESENTATIVE, Rochelle Unavailable Unavailable JUNIOR, EVI Primary Care Unavailable BETINA POP Admitting Unavail able JUNIOR, EVI Primary Care Unavailable BETINA POP Referring Unavail able LAMBERTO RUSSO Attending Unavailable JUNIOR, EVI Primary Care Unavailable LAMBERTO RUSSO Attending Unavailable JUNIOR, EVI Primary Care Unavailable JUNIOR, EVI Primary Care Unavailable LAMBERTO RUSSO Attending Unavailable LAMBERTO RUSSO Attending Unavailable JUNIOR, EVI Primary Care Unavailable Marcia Grimm MD Primary Care Provider LUIS VIVEROS Attending Unavailable LISA LORD Attending Unavailable Marcia Grimm DO Primary Care Provider Marcia GRIMM Primary Care Unavailable ESLAMI, LILA Admitting Unavailable ESEMMAICHEOH Attending Unavailable ESLAMI, LILA Referring Unavailable GRIMM, E JANETH Primary Care Unavailable GRIMM, E JANETH Primary Care Unavailable ESLAMI, LILA Referring Unavailable GRIMM, E JANETH Primary Care Unavailable ESLAMI, LILA Referring Unavailable ESLAMI, LILA Referring Unavailable GRIMM, E JANETH Primary Care Unavailable No, Physician Primary Care Provider Unavailabl e JUNIOR, EVI Primary Care Unavailable BETINA POP Attending Unavail able BETINA POP Attending Unavail able NO, PHYSICIAN Primary Care Unavailable GODINEZ, OPAL ADAM Attending Unavailable NO, PHYSICIAN Primary Care Unavailable BETINA POP Attending Unavail able NO, PHYSICIAN Primary Care Unavailable BETINA POP Attending Unavail able NO, PHYSICIAN Primary Care Unavailable GODINEZ, OPAL ADAM Attending Unavailable NO, PHYSICIAN Primary Care Unavailable GODINEZ, OPAL ADAM Attending Unavailable NO, PHYSICIAN Primary Care Unavailable GODINEZ, OPAL ADAM Attending Unavailable NO, PHYSICIAN Primary Care Unavailable JUNIOR, EVI Primary Care Unavailable BETINA POP Attending Unavail able JUNIOR, EVI Primary Care Unavailable BETINA POP Attending Unavail able BETINA POP Attending Unavail able NO, PHYSICIAN Primary Care Unavailable GODINEZ, OPAL ADAM Attending Unavailable NO, PHYSICIAN Primary Care Unavailable GODINEZ, OPAL ADAM Attending Unavailable NO, PHYSICIAN Primary Care Unavailable BETINA POP Attending Unavail able NO, PHYSICIAN Primary Care Unavailable GODINEZ, OPAL ADAM Attending Unavailable NO, PHYSICIAN Primary Care Unavailable NO, PHYSICIAN Primary Care Unavailable BETINA POP Attending Unavail able Allergies Allergy ClassificationReported Allergen(s)Allergy TypeDate of OnsetReaction(s) Facility (1 source)No Known Medication Allergies; Translations: [No Known Medication Allergies]Propensity to adverse reactions to drug (disorder)[facility] Repository Medications Current Medications MedicationDrug Class(es)DatesSig (Normalized)Sig (Original)acetaminophen 325 mg / HYDROcodone bitartrate 5 mg oral tablet (1 source)Opioid AgonistStart: 07-26-2024 End: 37-33-2367XMYAUzgjvhn-acetaminophen (NORCO) 5-325 MG per tablet Indications: S/P panniculectomy Take 1 tabletby mouth every 6 hours as needed for Pain for up to 7 days. Intended supply: 7 days. Take lowest dose possible to manage pain Max Daily Amount: 4 tablets 28 tablet 07/26/2024 08/02/2024 Active [id number] 200 actuat albuterol 0.09 mg/actuat metered dose inhaler (20 sources)beta2-Adrenergic AgonistStart: 06-08-2021 End: 03-81-0809wuuq 2 puff(s) by inhalation every six hours as needed for cough albuterol 90 mcg/actuation inhaler Indications: Cough Inhale 2 (two) puffs every 6 (six) hours as needed for shortness of breath or cough . 18 g 06/08/2021 Activeamoxicillin 875 mg / clavulanate 125 mg oral tablet (1 source)Penicillin-class AntibacterialStart: 10-10-2020 End: 42-06-9050zhtc 1 tablet by mouth twice dailyamoxicillin-clavulanate (AUGMENTIN) 875-125 mg per tablet Indications: Sinusitis, unspecified chroni city, unspecified location Take 1 (one) tablet by mouth 2 (two) times a day for 7 days . 14 tablet 0 10/10/2020 10/17/2020 Activeaspirin 81 mg delayed release oral tablet (19 sources)Platelet Aggregation Inhibitor, Nonsteroidal Anti-inflammatory Drug take 1 tablet by mouth once dailyaspirin 81 MG EC tablet Take 81 mg by mouth daily . 0 Activebaclofen 10 mg oral tablet (1 source)gamma-Aminobutyric Acid-ergic AgonistStart: 07-26-2024 End: 93-96-8129amrg 1 tablet by mouth three times dailybaclofen (LIORESAL) 10 MG tablet Take 1 tablet by mouth 3 times daily for 10 days 30 tablet 07/26/2024 08/05/2024 Activebenzonatate 200 mg oral capsule (3 sources)Non-narcotic AntitussiveStart: 06-08-2021 End: 16-52-9525lnox 1 capsule by mouth three times daily as needed for cough benzonatate (TESSALON) 200 MG capsule Indications: Cough Take 1 (one) capsule (200 mg total) by mouth 3 (three) times a day as needed for cough . 20 capsule 0 06/08/2021 06/15/2021 ActiveStart: 10-10-2020 End: 28-89-5780hrpx 1 capsule by mouth three times daily as needed for cough benzonatate (TESSALON) 200 MG capsule Indications: Sinusitis, unspecified chronicity, unspecified location Take 1 (one) capsule (200 mg total) by mouth 3 (three) times a day as needed for cough . 20 capsule 0 10/10/2020 10/17/2020 ActiveBudesonide / formoterol (20 sources)Corticosteroid, beta2-Adrenergic AgonistStart: 59-88-5219vmeo 2 puff(s) by inhalation twice dailybudesonide-formoteroL (Symbicort) 80-4.5 mcg/actuation inhaler Indications: Mild intermittent asthma, unspecified whether complicated Inhale 2 (two) puffs 2 (two) times a day . 1 each 2 06/02/2021 Act iveStart: 06-02-2021 End: 53-98-7967lidq 2 puff(s) by inhalation twice dailybudesonide-formoteroL (Symbicort) 80-4.5 mcg/actuation inhaler Indications: Mild intermittent asthma, unspecified whether complicated Inhale 2 (two) puffs 2 (two) times a day . 1 each 2 06/02/2021 06/02/2022 Ahmrub86 hr buPROPion hydrochloride 150 mg extended release oral tablet (20 sources)AminoketoneStart: 12-10-2024 End: 36-93-7444cefp 1 tablet by mouth once dailybuPROPion (WELLBUTRIN XL) 150 MG 24 hr tablet Indications: Atypical eating disorder Take 1 (one) tablet (150 mg total) by mouth daily . 30 tablet 2 06/17/2025 ActiveStart: 05-16-2024 End: 38-19-0228msfo 1 tablet by mouth once dailybuPROPion (WELLBUTRIN XL) 300 MG 24 hr tablet Indications: Atypical eating disorder Take 1 (one) tablet (300 mg total) by mouth daily . 30 tablet 5 10/01/2024 12/10/2024 Discontinued (Reorder (Suppress CancelRx Message to Pharmacy))Start: 03-15-2023 End: 08-95-8596fbmy 1 tablet by mouth once daily in the morningbuPROPion (WELLBUTRIN XL) 300 MG extended release tablet Take 1 tablet by mouth daily am 11/03/2023ctiveStart: 89-90-7800xjsv 1 tablet by mouth once dailybuPROPion (WELLBUTRIN XL) 300 MG 24 hr tablet Indications: Atypical eating disorder Take 1 (one) tablet (300 mg total) by mouth daily . 30 tablet 1 01/21/2023 ActiveStart: 10-27-2022 End: 91-05-9271skuf 1 tablet by mouth once dailybuPROPion (WELLBUTRIN XL) 300 MG 24 hr tablet Indications: Atypical eating disorder Take 1 (one) tablet (300 mg total) by mouth daily . 30 tablet 1 12/10/2022 ActiveStart: 01-06-2022 End: 43-29-1878yzzl 1 tablet by mouth once dailybuPROPion (WELLBUTRIN XL) 150 MG 24 hr tablet Indications: Atypical eating disorder Take 1 (one) tablet (150 mg total) by mouth daily . 30 tablet 1 09/08/2022 10/27/2022 Discontinued (Reorder (Suppress CancelRx Message to Pharmacy))Start: 04-24-2020 End: 34-28-5043avob 1 tablet by mouth once dailybuPROPion (WELLBUTRIN XL) 300 MG 24 hr tablet Indications: Anxiety and depression Take 1 (one) tablet (300 mg total) by mouth daily . 30 tablet 11 04/24/2020 01/06/2022 DiscontinuedStart: 04-23-2020 End: 36-48-1728rvsm 1 tablet by mouth once dailybuPROPion (Wellbutrin XL) 150 MG 24 hr tablet Indications: Anxiety and depression Take 1 (one) tablet (150 mg total) by mouth daily . 30 tablet 11 04/23/2020 04/23/2021 ActiveStart: 12-20-2019 End: 34-06-9405yqfh 1 tablet by mouth twice dailybuPROPion (WELLBUTRIN SR) 150 MG 12 hr tablet Indications: Anxiety and depression Take 1 (one) tablet (150 mg total) by mouth 2 (two) times a day . 60 tablet 11 12/20/2019 04/23/2020 DiscontinuedStart: 11-16-2019 End: 27-37-4277hmhj 1 tablet by mouth twice dailybuPROPion (WELLBUTRIN) 100 MG tablet Indications: Anxiety and depression Take 1 (one) tablet (100 mg total) by mouth 2 (two) times a day . 60 tablet 1 11/16/2019 11/15/2020 ActiveStart: 10-29-2019 End: 54-24-8395ifqs 1 tablet by mouth twice dailybuPROPion (WELLBUTRIN) 75 MG tablet Indications: Anxiety and depression Take 1 (one) tablet (75 mg total) by mouth 2 (two) times a day . 60 tablet 0 10/29/2019 11/16/2019 Discontinuedtake 1 tablet by mouth every twenty-four hours in the morningbuPROPion XL (Wellbutrin XL) 300 MG 24 hr tablet Take 300 mg by mouth in the morning. Activecephalexin 500 mg oral capsule (1 source)Cephalosporin AntibacterialStart: 07-26-2024 End: 50-58-9667ptfz 1 capsule by mouth twice dailycephALEXin (KEFLEX) 500 MG capsule Take 1 capsule by mouth 2 times daily for 10 days 20 capsule 07/26/2024 08/05/2024 Activecodeine phosphate 2 mg/ml / guaiFENesin 20 mg/ml oral solution (2 sources)Opioid AgonistStart: 06-08-2021 End: 50-62-6883oxbirlw-guaiFENesin (TUSSI-ORGANIDIN NR) 10-100 mg/5 mL syrup Indications: Cough Take 5 mL by mouth3 (three) times a day as needed for cough (Days supply per fill: 10) . 118 mL 0 06/08/2021 06/18/2021 Activedocusate sodium 50 mg / sennosides, prison 8.6 mg oral tablet (14 sources)Start: 14-20-0320wrre 1 tablet by mouth once dailysenna-docusate (SENNA-S) 8.6-50 mg Indications: Constipation, unspecified constipation type Take 1 (one) tablet by mouth daily . 30 tablet 5 04/17/2024 Activedulaglutide (20 sources)GLP-1 Receptor AgonistStart: 92-10-4349ipvxqzlvgoe (Trulicity) 4.5 mg/0.5 mL Pen Indications: Insulin resistance Inject 0.5 mL (4.5 mg total) under the skin every 7 days . 2 mL 5 06/17/2025 ActiveStart: 04-16-2025 End: 46-54-7547bxwinatknnd (Trulicity) 4.5 mg/0.5 mL Pen Indications: Insulin resistance Inject 0.5 mL (4.5 mg total) under the skin every 7 days . 2 mL 5 04/16/2025 06/17/2025 Discontinued (Reorder (Suppress CancelRx Message to Pharmacy))Start: 59-07-0822bkbhhhzzqex (Trulicity) 4.5 mg/0.5 mL Pen Indications: Insulin resistance Inject 0.5 mL (4.5 mg total) under the skin every 7 days . 2 mL 5 04/16/2025 ActiveStart: 03-12-2025 End: 22-65-8384fucdhqgqzzm (Trulicity) 4.5 mg/0.5 mL Pen Indications: Insulin resistance Inject 0.5 mL (4.5 mg total) under the skin every 7 days . 2 mL 5 03/12/2025 04/16/2025 Discontinued (Reorder (Suppress CancelRx Message to Pharmacy))Start: 09-25-2597mkxhkeilxqx (Trulicity) 4.5 mg/0.5 mL Pen Indications: Insulin resistance Inject 0.5 mL (4.5 mg total) under the skin every 7 days . 2 mL 5 03/12/2025 ActiveStart: 01-08-2025 End: 49-75-6432mfnqfupgybm (Trulicity) 4.5 mg/0.5 mL Pen Indications: Insulin resistance Inject 0.5 mL (4.5 mg total) under the skin every 7 days . 2 mL 5 01/08/2025 03/12/2025 Discontinued (Reorder (Suppress CancelRx Message to Pharmacy))Start: 33-35-9012nxslrilxwey (Trulicity) 4.5 mg/0.5 mL Pen Indications: Insulin resistance Inject 0.5 mL (4.5 mg total) under the skin every 7 days . 2 mL 5 01/08/2025 ActiveStart: 10-01-2024 End: 38-40-5867sgkruoxjkir (Trulicity) 4.5 mg/0.5 mL Pen Indications: Insulin resistance Inject 0.5 mL (4.5 mg total) under the skin every 7 days . 2 mL 5 10/01/2024 01/08/2025 Discontinued (Reorder (Suppress CancelRx Message to Pharmacy))Start: 71-48-5843fxygoxrqznx (Trulicity) 4.5 mg/0.5 mL Pen Indications: Insulin resistance Inject 0.5 mL (4.5 mg total) under the skin every 7 days . 2 mL 5 10/01/2024 ActiveStart: 04-17-2024 End: 19-44-5409kprwfdrmcbg (Trulicity) 4.5 mg/0.5 mL Pen Indications: Insulin resistance Inject 0.5 mL (4.5 mg total) under the skin every 7 days . 2 mL 5 04/17/2024 10/01/2024 Discontinued (Reorder (Suppress CancelRx Message to Pharmacy))Start: 86-08-3987pqfhxxidgdf (Trulicity) 4.5 mg/0.5 mL Pen Indications: Insulin resistance Inject 0.5 mL (4.5 mg total) under the skin every 7 days . 2 mL 5 04/17/2024 ActiveStart: 69-43-5606bpoqhugbhrk (Trulicity) 3 mg/0.5 mL Pen Indications: Insulin resistance Inject 0.5 mL (3 mg total) under the skin every 7 days . 2 mL 2 03/13/2024 ActiveStart: 04-15-2022 End: 99-55-7886uahntdpcrnz (Trulicity) 3 mg/0.5 mL Pen Indications: Insulin resistance Inject 0.5 mL (3 mg total) under the skin every 7 days . 2 mL 1 04/15/2022 06/17/2022 DiscontinuedStart: 17-42-8567tapmuxucmhs (Trulicity) 3 mg/0.5 mL Pen Indications: Insulin resistance Inject 0.5 mL (3 mg total) under the skin every 7 days . 2 mL 1 04/15/2022 ActiveStart: 02-11-2022 End: 16-86-8051dciwfmumvwe (Trulicity) 1.5 mg/0.5 mL Pen Indications: Insulin resistance Inject 0.5 mL (1.5 mg total) under the skin every 7 days . 2 mL 1 03/15/2022 04/15/2022 DiscontinuedStart: 11-30-2021 End: 50-88-6741hywogredwgy (Trulicity) 0.75 mg/0.5 mL Pen Indications: Insulin resistance Inject 0.5 mL (0.75 mg total) under the skin every 7 days Failed metformin . 2 mL 1 01/06/2022 02/11/2022 DiscontinuedStart: 07-03-2021 End: 86-31-8658pofkouhpoxb (Trulicity) 0.75 mg/0.5 mL Pen Inject 0.5 mL (0.75 mg total) under the skin every 7 days On hold for metformin trial . 2 mL 0 07/31/2021 09/09/2021 DiscontinuedDulaglutide (TRULICITY) 4.5 MG/0.5ML SOAJ (4 sources)Dulaglutide (TRULICITY) 4.5 MG/0.5ML SOAJ Inject into the skin once a week Tuesday SuspendedDulaglutide (TRULICITY) 4.5 MG/0.5ML SOAJ Inject into the skin once a week Tuesday Activeergocalciferol 1.25 mg oral capsule (20 sources)Provitamin D2 CompoundStart: 41-18-8305egug 1 capsule by mouth two times weekly at mealtimeergocalciferol (ERGOCALCIFEROL) 1,250 mcg (50,000 unit) capsule Indications: Vitamin D deficiency Take 1 (one) capsule (50,000 Units total) by mouth twice weekly Take with 500mg vitamin c and fatty meal . 8 capsule 1 07/14/2023 ActiveStart: 04-28-2021 End: 51-28-3770fdox 1 capsule by mouth every week at mealtimeergocalciferol (ERGOCALCIFEROL) 1,250 mcg (50,000 unit) capsule Indications: Vitamin D deficiency Take 1 (one) capsule (50,000 Units total) by mouth once a week Take with 500mg vitamin c and fatty meal . 4 capsule 1 01/27/2023 07/14/2023 Discontinued (Reorder (Suppress CancelRx Message to Pharmacy))ferrous sulfate 325 mg oral tablet (20 sources)Start: 04-28-2021 End: 27-99-7670vpvu 1 tablet by mouth every other dayferrous sulfate 325 (65 FE) MG tablet Indications: Iron deficiency Take 1 (one) tablet (325 mg total) by mouth every other day Take with 500mg of vitamin c . 15 tablet 1 01/06/2022 ActiveFLUoxetine 40 mg oral capsule (15 sources)Serotonin Reuptake InhibitorStart: 09-05-2020 End: 78-88-5159oeqq 1 capsule by mouth once dailyFLUoxetine (PROZAC) 40 MG capsule Indications: Anxiety and depression Take 1 (one) capsule (40 mg total) by mouth daily . 90 capsule 0 09/05/2020 ActiveStart: 06-10-2020 End: 59-59-1546dknb 1 capsule by mouth once dailyFLUoxetine (PROZAC) 20 MG capsule Indications: Anxiety and depression Take 1 (one) capsule (20 mg total) by mouth daily . 90 capsule 0 06/10/2020 09/05/2020 Discontinued (Reorder) furosemide 20 mg oral tablet (20 sources)Loop DiureticStart: 36-58-6160tqek 1 tablet by mouth twice daily furosemide (LASIX) 20 MG tablet Take 1 tablet by mouth 2 times daily 11/11/2023 Activetake 1 tablet by mouth once daily as neededfurosemide (LASIX) 20 MG tablet Indications: edema Take 1 (one) tablet (20 mg total) by mouth dailyas needed Reasons: visible water retention. Activegabapentin 300 mg oral capsule (2 sources)Anti-epileptic AgentStart: 71-81-4724hbazqbpcsn (NEURONTIN) 300 MG capsule Indications: Postoperative state Take 1 capsule by mouth 3 times daily for 10 days. Intended supply: 30 days 30 capsule 08/07/2024 ActiveStart: 07-26-2024 End: 20-36-5481lustkpnndv (NEURONTIN) 300 MG capsule Take 1 capsule by mouth 3 times daily for 10 days. Intended supply: 30 days 30 capsule 07/26/2024 08/05/2024 Active1 ml haloperidol 5 mg/ml prefilled syringe (1 source)Typical AntipsychoticStart: 07-26-2024 End: mg, IntraVENous, ONCE PRN, 1 dose, Starting on Maritza 07/26/24 at 1217, Until 07/27/24 at 1217, Agitation, nausea, Secondary antiemetic therapy., PACU onlyibuprofen 800 mg oral tablet (20 sources)Nonsteroidal Anti-inflammatory Drugtake 1 tablet by mouth every six hours as neededibuprofen (ADVIL,MOTRIN) 800 MG tablet Take 800 mg by mouth every 6 (six) hours as needed for pain . 0 Activeinhaler, assist devices (OPTICHAMBER ADVANTAGE) Spcr (20 sources)Start: 15-29-7432cwqoere, assist devices (OPTICHAMBER ADVANTAGE) Spcr Indications: Mild intermittent asthma, unspecified whether complicated As directed . 1 each 06/02/2021 ActiveStart: 39-85-6801cqqihkv, assist devices (OPTICHAMBER ADVANTAGE) Spcr Indications: Mild intermittent asthma, unspecified whether complicated As directed . 1 each 0 06/02/2021 Activelevothyroxine sodium 0.15 mg oral tablet (20 sources)l-ThyroxineStart: 24-94-6471rzkr 1 tablet by mouth once daily levothyroxine (SYNTHROID, LEVOTHROID) 150 MCG tablet Take 1 (one) tablet (150 mcg total) by mouth once daily . 30 tablet 1 01/27/2023 ActiveStart: 02-12-2022 End: 63-06-2605hlhi 1 tablet by mouth in the morninglevothyroxine (Synthroid, Levoxyl) 137 MCG tablet Take 137 mcg by mouth in the morning. 01/12/2023 Active Start: 01-06-2022 End: 71-38-7243ssvg 1 tablet by mouth once daily in the morninglevothyroxine (SYNTHROID, LEVOTHROID) 150 MCG tablet Indications: Other specified hypothyroidism Take 1 (one) tablet (150 mcg total) by mouth every morning . 30 tablet 1 01/06/2022 02/12/2022 DiscontinuedStart: 04-28-2021 End: 72-83-7879innp 1 tablet by mouth once daily in the morninglevothyroxine (SYNTHROID, LEVOTHROID) 175 MCG tablet Indications: Other specified hypothyroidism Take 1 (one) tablet (175 mcg total) by mouth every morning . 30 tablet 3 06/02/2021 01/06/2022 Discontinued (Reorder)Start: 08-24-2019 End: 81-44-1100sywl 1 tablet by mouth once dailylevothyroxine (SYNTHROID, LEVOTHROID) 200 MCG tablet Indications: Other specified hypothyroidism Take 1 (one) tablet (200 mcg total) by mouth once daily . 90 tablet 1 09/01/2020 04/28/2021 Discontinued (Reorder)Start: 01-05-2019 End: 00-29-2042qvsb 1 tablet by mouth once dailylevothyroxine (SYNTHROID, LEVOTHROID) 25 MCG tablet Indications: Other specified hypothyroidism Take 1 (one) tablet (25 mcg total) by mouth daily . 90 tablet 1 12/27/2019 12/26/2020 Active End: 07-04-8284fbrp 1 tablet by mouth once dailylevothyroxine (SYNTHROID, LEVOTHROID) 175 MCG tablet Take 175 mcg by mouth daily . 0 08/24/2019 Disc lupxmihe93 ml lidocaine hydrochloride 10 mg/ml injection (1 source)Antiarrhythmic, Amide Local AnestheticStart: 07-27-2024 End: 51-27-9486axph 1 dose intravenously once daily1 mL, IntraDERmal, ONCE PRN, 1 dose, Starting on 07/27/24 at 0000, Until 07/28/24 at 0000, IV start, Pre-op (day of surgery)2 ml metoclopramide 5 mg/ml prefilled syringe (1 source)Dopamine-2 Receptor AntagonistStart: 07-26-2024 End: 97-96-049611 mg, IntraVENous, ONCE PRN, 1 dose, Starting on Maritza 07/26/24 at 1217, Until Tue07/27/24 at 1217,Nausea, Initial antiemetic therapy. Do not give if hx parkinsons disorder or extrapyramidal symptoms, PACU onlyMounjaro 15 MG/0.5ML solution pen-injector (3 sources)Start: 06-09-2023 End: 06-65-3207Jizjlkyq 15 MG/0.5ML solution pen-injector Inject 15 mg under the skin every 7 (seven) days. 06/09/2023 06/14/2024 Discontinued (Other)Start: 31-28-7991Rniprhck 15 MG/0.5ML solution pen-injector Inject 15 mg under the skin every 7 (seven) days. 06/09/2023 Activenaloxone 0.4 mg in 10 mL sodium chloride syringe (1 source)Start: 74-80-0482EyuvfYUCxnc, PRN, Opioid Reversal, Starting on Maritza 07/26/24 at 1217, PRN if respiratory rate is less than 6/min and patient is difficult to arouse then notify physician STAT. Mix 9 mL of sodium chloride 0.9% with 0.4 mg (1 mL) of naloxone (NARCAN) in 10 mL syringe. (Note: dilution is 0.04 mg/mL) Give 0.08 mg (2 mL of special dilution), slow IV push, repeat up to 0.4 mg (10 mL) or until patient isresponsive to physical stimulation and respiratory rate is equal to or greater than 6 breaths/min. Continue to observe, if no response within 3 minutes of administration of 0.4 mg (10 mL) total, repea t dose (0.4 mg as administered previously). Concentration 0.04 mg/mL, PACU only ondansetron 4 mg disintegrating oral tablet (20 sources)Serotonin-3 Receptor AntagonistStart: 02-58-0576galo 1 tablet by mouth three times daily as needed for nauseaondansetron (ZOFRAN-ODT) 4 MG disintegrating tablet Take 1 tablet by mouth 3 times daily as needed for Nausea or Vomiting 21 tablet 07/26/2024 ActiveStart: 11-30-2021 End: 80-28-2928wibq 1 tablet by mouth every eight hours as needed for nausea ondansetron (ZOFRAN-ODT) 4 MG disintegrating tablet Dissolve 1 (one) tablet (4 mg total) on top of tongue every 8 (eight) hours as needed for nausea . 20 tablet 11/30/2021 Activephentermine hydrochloride 37.5 mg oral tablet (20 sources)Sympathomimetic Amine AnorecticStart: 12-10-2024 End: 63-38-6076zfor 1 tablet by mouth once daily in the morningphentermine (ADIPEX-P) 37.5 mg tablet Indications: Obesity, Class I, BMI 30-34.9 Take 1 (one) tablet (37.5 mg total) by mouth every morning (Days supply per fill: 30) BMI 35.11 now 32.6, maintenance,current weight 195 lbs . 30 tablet 2 06/17/2025 ActiveStart: 01-06-2022 End: 46-26-2947ekjj 1 tablet by mouth once daily in the morningphentermine (ADIPEX-P) 37.5 mg tablet Indications: Obesity, morbid, BMI 50 or higher (HCC) Take 1 (one) tablet (37.5 mg total) by mouth every morning (Days supply per fill: 30) BMI 50.07 now 45.85 round #3 . 30 tablet 0 03/15/2022 05/17/2022 DiscontinuedStart: 04-09-2020 End: 90-32-6334dfwd 1 tablet by mouth once daily in the morning, then take 3 tablets by mouthphentermine (ADIPEX-P) 37.5 mg tablet Indications: Obesity, Class II, BMI 35-39.9 , Atypical eatingdisorder Take 1 (one) tablet (37.5 mg total) by mouth every morning Round 2 BMI 42.3, round 3 Start: 05/09/20. 30 tablet 0 05/09/2020 06/08/2020 ActiveStart: 03-07-2020 End: 50-78-2946ibeu 1 tablet by mouth once daily in the morning, then take 1 tablet by mouthphentermine (ADIPEX-P) 37.5 mg tablet Indications: Atypical eating disorder , Obesity, Class II, BMI 35-39.9 Take 1 (one) tablet (37.5 mg total) by mouth every morning Round 1 bmi 42.98 . 30 tablet 04/06/2020 Activeprenat.vits,ronny,yjo-rngi-swftj Tab (20 sources)prenat.vits,ronny,old-edkb-zibin Tab Take by mouth . 0 Active pyridoxine hydrochloride 25 mg oral tablet (20 sources)Start: 04-28-2021 End: 66-03-7841iaif 1 tablet by mouth once dailypyridoxine, vitamin B6, (vitamin B-6) 25 MG tablet Indications: Vitamin B6 deficiency Take 1 (one) tablet (25 mg total) by mouth daily . 30 tablet 2 04/28/2021 Axcgoo35 hr scopolamine 0.0139 mg/hr transdermal system (1 source)AnticholinergicStart: patch, TransDERmal, Administer over 72 Hours, ONCE, On [facility] 07/26/24 at 0745, For 1 dose, delivers1 mg over 3 days. Apply patch to hairless area behind the ear.sertraline 25 mg oral tablet (20 sources)Serotonin Reuptake InhibitorStart: 05-16-2024 End: 57-44-8085zcej 1 tablet by mouth once dailysertraline (ZOLOFT) 25 MG tablet Indications: Depression, unspecified depression type Take 1 (one) tablet (25 mg total) by mouth nightly . 30 tablet 5 06/17/2025 ActiveStart: 04-14-2021 End: 16-37-5789gwaq 1 tablet by mouth once dailysertraline (ZOLOFT) 25 MG tablet Take 1 tablet by mouth nightly 11/03/2023 Active5 ml sodium chloride 9 mg/ml injection (7 sources)Start: -40 mL, IntraVENous, EVERY 12 HOURS SCHEDULED (2 times per day), First dose on [facility] 07/26/24 at 2100, Until Discontinued, For Line Patency: Peripheral IV = 5 mL; Midline or Central Line = 10 mL/lumen. If following IV push medication, administer flush at same rate as the IV push. Flush volume is determined by type of infusion therapy being given. For non- viscous solutions use: Peripheral IV = 5 mLMidline or Central Line = 10 mL/lumen For viscous solutions (i.e. blood components, parenteral nutrition, contrast media, or after obtaining blood sample) use: Peripheral IV = 10 mL Midline or Central Line = 20 mL/lumen, PACU onlyStart: -40 mL, IntraVENous, EVERY 12 HOURS SCHEDULED (2 times per day), First dose on [facility] 07/26/24 at 0900, Until Discontinued, For Line Patency: Peripheral IV = 5 mL; Midline or Central Line = 10 mL/lumen. If following IV push medication, administer flush at same rate as the IV push. Flush volume is determined by type of infusion therapy being given. For non-viscous solutions use: Peripheral IV = 5 mLMidline or Central Line = 10 mL/lumen For viscous solutions (i.e. blood components, parenteral nutrition, contrast media, or after obtaining blood sample) use: Peripheral IV = 10 mL Midline or Central Line = 20 mL/lumen, Pre-op (day of surgery)Start: 57-20-8105TwljaPGGrzs, at 125 mL/hr, CONTINUOUS, Starting on [facility] 07/26/24 at 0730, Pre-op (day of surgery)Start: 02-40-8562byts 20 mL intravenously every hourIntraVENous, at 5-250 mL/hr, PRN, if patient receiving piggyback infusions and maintenance fluids are not ordered OR KVO fluids to protect IV site / prevent frequent line interruptions/ long duration, Starting on [facility] 07/26/24 at 1217, For piggyback infusion, administer at same rate as piggyback fora total of 25 mL. Enter 25 mL into dose field and piggyback rate into rate field of order. If piggyback is infusing at a rate less than 100 mL/hr, enter 25 mL into dose field and 100 mL/hr into rate field of order. For KVO fluids, enter rate of 20 mL/hr or less into rate field of order., PACU only Start: -40 mL, IntraVENous, PRN, Starting on [facility] 07/26/24 at 1217, Until Discontinued, Line Care, After every IV line use, For Line Patency: Peripheral IV = 5 mL; Midline or Central Line = 10 mL/lumen. If following IV push medication, administer flush at same rate as the IV push. Flush volume is determined by type of infusion therapy being given. For non-viscous solutions use: Peripheral IV = 5 mL Midline or Central Line = 10 mL/lumen For viscous solutions (i.e. blood components, parenteral nutrition, contrast media, or after obtaining blood sample) use: Peripheral IV = 10 mL Midline or Central Line = 20 mL/lumen, PACU onlytirzepatide (Mounjaro) 10 mg/0.5 mL Pen (2 sources)Start: 07-27-2022 End: 40-03-9454ieoolmqinvn (Mounjaro) 10 mg/0.5 mL Pen Indications: type 2 diabetes mellitus Inject 0.5 mL (10 mg total) under the skin every 7 days Reasons: type 2 diabetes mellitus. 2 mL 1 07/27/2022 09/08/2022 Discontinued Start: 53-96-1769yurlvntvaba (Mounjaro) 10 mg/0.5 mL Pen Indications: type 2 diabetes mellitus Inject 0.5 mL (10 mg total) under the skin every 7 days Reasons: type 2 diabetes mellitus. 2 mL 1 07/27/2022 Activetirzepatide (Mounjaro) 12.5 mg/0.5 mL Pen (6 sources)Start: 02-16-2023 End: 66-04-9402zetkmkcpidi (Mounjaro) 12.5 mg/0.5 mL Pen Inject 0.5 mL (12.5 mg total) under the skin every 7 days. 2 mL 1 02/16/2023 05/09/2023 Discontinued Start: 08-64-5675ffhtwdypbmz (Mounjaro) 12.5 mg/0.5 mL Pen Inject 0.5 mL (12.5 mg total) under the skin every 7 days. 2 mL 1 02/16/2023 ActiveStart: 10-22-2022 End: 54-59-7119gmuomrnnowl (Mounjaro) 12.5 mg/0.5 mL Pen Indications: type 2 diabetes mellitus Inject 0.5 mL (12.5mg total) under the skin every 7 days Reasons: type 2 diabetes mellitus. 2 mL 1 10/22/2022 10/27/2022 Discontinued Start: 72-38-0570msfwecugvkf (Mounjaro) 12.5 mg/0.5 mL Pen Indications: type 2 diabetes mellitus Inject 0.5 mL (12.5mg total) under the skin every 7 days Reasons: type 2 diabetes mellitus. 2 mL 1 09/08/2022 Activetopiramate 25 mg oral tablet (20 sources)Start: 27-81-7748bjkg 1 tablet by mouth once dailytopiramate (TOPAMAX) 25 MG tablet Take 1 (one) tablet (25 mg total) by mouth daily . 30 tablet 1 06/17/2022 ActiveStart: 10-23-2021 End: 58-88-6576lkac 1 tablet by mouth twice daily, then take 1 tablet by mouth at lunch, then take 1 tablet by mouth at dinnertopiramate (TOPAMAX) 50 MG tablet Take 1 (one) tablet (50 mg total) by mouth 2 (two) times a day One with lunch and one with dinner . 60 tablet 1 04/15/2022 06/17/2022 DiscontinuedStart: 09-09-2021 End: 40-89-1536hign 3 tablets by mouth twice dailytopiramate (TOPAMAX) 50 MG tablet Take 3 (three) tablets (150 mg total) by mouth 2 (two) times a day . 180 tablet 1 09/09/2021 10/23/2021 Discontinued (Reorder)Start: 07-03-2021 End: 15-29-6303flql 1 tablet by mouth twice dailytopiramate (TOPAMAX) 100 MG tablet Indications: Obesity, Class III, BMI 40-49.9 (morbid obesity) (HCC) Take 1 (one) tablet (100 mg total) by mouth 2 (two) times a day . 60 tablet 1 07/31/2021 09/09/2021 DiscontinuedStart: 08-29-2020 End: 28-73-3060zoye 1 tablet by mouth twice dailytopiramate (TOPAMAX) 25 MG tablet Indications: Migraine with aura and without status migrainosus, not intractable Take 1 (one) tablet (25 mg total) by mouth 2 (two) times a day . 60 tablet 1 04/14/2021 04/28/2021 DiscontinuedStart: 03-07-2020 End: 09-40-8264lxtg 1 tablet by mouth twice dailytopiramate (TOPAMAX) 50 MG tablet Indications: Obesity, Class II, BMI 35-39.9 Take 1 (one) tablet (50 mg total) by mouth 2 (two) times a day . 60 tablet 1 06/02/2021 07/03/2021 Discontinued (Reorder)Start: 12-20-2019 End: 90-55-0694qtle 1 tablet by mouth once dailytopiramate (Topamax) 25 MG tablet Indications: Migraine with aura and without status migrainosus, not intractable Take 1 (one) tablet (25 mg total) by mouth daily . 90 tablet 1 02/25/2020 03/07/2020 Discontinued (Reorder)valACYclovir 1000 mg oral tablet (3 sources)Herpesvirus Nucleoside Analog DNA Polymerase Inhibitor, Herpes Simplex Virus Nucleoside Analog DNA Polymerase Inhibitor, Herpes Zoster Virus Nucleoside Analog DNA Polymerase InhibitorStart: 06-14-2024 End: 02-28-0062fsgg 1 tablet by mouth in the morningvalACYclovir (Valtrex) 1 g tablet Indications: Herpes simplex Take 1 tablet (1,000 mg) by mouth in the morning and 1 tablet (1,000 mg) before bedtime. Do all this for 10 days. 20 tablet 1 06/14/2024 06/24/2024 Activevitamin b12 1 mg sublingual tablet (20 sources)Vitamin I03Toxag: 04-28-2021 End: 56-83-5534defwjqpyhxgsyf, vitamin B-12, 1,000 mcg Subl Indications: Insulin resistance Place 1 (one) tablet (1,000 mcg total) under the tongue daily . 30 tablet 2 02/11/2025 Activezolpidem tartrate 10 mg oral tablet (2 sources)gamma-Aminobutyric Acid-ergic AgonistStart: 05-06-2020 End: 96-86-9657hmju 1 tablet by mouth once daily as needed for sleepzolpidem (Ambien) 10 mg tablet Indications: Sleep disturbance Take 1 (one) tablet (10 mg total) by mouth nightly as needed for sleep . 30 tablet 0 05/06/2020 06/05/2020 ActiveStart: 03-07-2020 End: 88-31-6549rjis 1 tablet by mouth once daily as needed for sleepzolpidem (Ambien) 10 mg tablet Indications: Sleep disturbance Take 1 (one) tablet (10 mg total) by mouth nightly as needed for sleep . 7 tablet 0 03/07/2020 03/14/2020 Activezonisamide 100 mg oral capsule (20 sources)Anti-epileptic AgentStart: 05-16-2024 End: 07-42-1488bqyz 1 capsule by mouth once daily in the eveningzonisamide (ZONEGRAN) 100 MG capsule Indications: Atypical eating disorder Take 1 (one) capsule (100 mg total) by mouth once daily Take in evening . 30 capsule 5 06/17/2025 ActiveStart: 10-86-5181ssmw 2 capsules by mouth once dailyzonisamide (ZONEGRAN) 50 MG capsule Take 2 capsules by mouth nightly 11/03/2023 Active Start: 07-13-2023 End: 30-22-0162hlmm 1 capsule by mouth once daily in the eveningzonisamide (ZONEGRAN) 50 MG capsule Indications: Atypical eating disorder Take 1 (one) capsule (50 mg total) by mouth once daily Take in evening . 30 capsule 2 04/17/2024 ActiveStart: 03-15-2023 End: 56-11-1105meup 1 capsule by mouth in the morningzonisamide (Zonegran) 25 MG capsule Take 25 mg by mouth in the morning. 05/09/2023 Active Completed/Discontinued Medications MedicationDrug Class(es)DatesSig (Normalized)Sig (Original)acetaminophen 500 mg oral tablet (20 sources)Start: 07-26-2024 End: 23-27-6408ghob 4000 mg by mouth every twenty-four hours1,000 mg, Oral, ONCE, 1 dose, On [facility] 07/26/24 at 0745, Maximum dose of acetaminophen is 4000 mg from all sources in 24 hours.take 2 tablets by mouth every six hours as needed acetaminophen (TYLENOL) 325 MG tablet Take 650 mg by mouth every 6 (six) hours as needed for pain .0 Activearm brace Misc (18 sources)Start: 04-10-2019 End: 25-27-4734fdd brace Misc Indications: Tenosynovitis of right wrist Wear the brace every daily. . 1 each 0 04/10/2019 11/16/2019 DiscontinuedStart: 97-63-8351ntd brace Misc Indications: Tenosynovitis of right wrist Wear the brace every daily. . 1 each 0 04/10/2019 Activebetamethasone 0.5 mg/ml / clotrimazole 10 mg/ml topical cream (17 sources)Azole Antifungal, CorticosteroidStart: 04-25-2019 End: 56-02-1551gmtkvnwxbplz-betamethasone (LOTRISONE) cream Indications: Rash Apply topically 2 (two) times a day . 45 g 1 04/25/2019 11/16/2019 Discontinued busPIRone hydrochloride 5 mg oral tablet (20 sources)Start: 11-12-2020 End: 37-80-2221fumc 1 tablet by mouth three times dailybusPIRone (BUSPAR) 5 MG tablet Indications: Anxiety and depression Take 1 (one) tablet (5 mg total)by mouth 3 (three) times a day . 90 tablet 1 06/08/2021 01/06/2022 Discontinued (Patient Discharge)calcium chloride 0.0014 meq/ml / potassium chloride 0.004 meq/ml / sodium chloride 0.103 meq/ml / sodium lactate 0.028 meq/ml injectable solution (2 sources)Start: 07-26-2024 End: ,000 mL, IntraVENous, at 983.6 mL/hr, Administer over 61 Minutes, ONCE, On [facility] 07/26/24 at 1430, For 1 dose, PACU only, STATStart: 75-09-0581VzheqUOWpfs, at 125 mL/hr, CONTINUOUS, Starting on [facility] 07/26/24 at 0730, Pre-op (day of surgery)ciprofloxacin 500 mg oral tablet (2 sources)Quinolone AntimicrobialStart: 08-22-2024 End: 20-98-8574fnep 1 tablet by mouth twice dailyciprofloxacin (CIPRO) 500 MG tablet Indications: Postoperative state Take 1 tablet by mouth 2 timesdaily for 10 days 20 tablet 08/22/2024 09/01/2024 Expireddocusate sodium 100 mg oral capsule (20 sources)Start: 08-28-2021 End: 91-31-6140yfwp 1 capsule by mouth twice dailydocusate sodium (COLACE) 100 MG capsule Indications: Internal hemorrhoids Take 1 (one) capsule (100mg total) by mouth 2 (two) times a day . 60 capsule 11 08/28/2021 01/06/2022 Discontinued take 1 capsule by mouth twice dailydocusate sodium (COLACE) 100 MG capsule Take 100 mg by mouth 2 (two) times a day . 0 ActiveePHEDrine injection 15 mg (1 source)Start: 07-26-2024 End: 57-56-410074 mg, IntraVENous, ONCE, 1 dose, On [facility] 07/26/24 at 1615, STAT, PACU only2 ml fentaNYL 0.05 mg/ml injection (1 source)Opioid AgonistStart: 45-13-745018 mcg, IntraVENous, EVERY 5 MIN PRN, 4 doses, Starting on [facility] 07/26/24 at 1217, Until Discontinued, Pain Moderate (4- 6), Phase I - Initial therapy for moderate pain., PACU onlyhydrocortisone 25 mg/ml topical cream (6 sources)CorticosteroidStart: 08-28-2021 End: 79-67-8292gqvoithkxxxwre (ANUSOL-HC) 2.5 % rectal cream Indications: Internal hemorrhoids Insert into the rectum 2 (two) times a day . 30 g 0 08/28/2021 01/06/2022 Discontinued0.5 ml HYDROmorphone hydrochloride 1 mg/ml prefilled syringe (1 source)Opioid AgonistStart: 40.5 mg, IntraVENous, EVERY 5 MIN PRN, 4 doses, Starting on [facility] 07/26/24 at 1217, Until Discontinued, Pain Severe (7-10), Phase I - Initial therapy for severe pain., PACU only24 hr metFORMIN hydrochloride 500 mg extended release oral tablet (7 sources)BiguanideStart: 09-09-2021 End: 58-28-8473oxtq 1 tablet by mouth once daily at lunchmetFORMIN (GLUCOPHAGE- XR) 750 MG 24 hr tablet Indications: Insulin resistance Take 1 (one) tablet (750 mg total) by mouth daily with lunch During lunch . 30 tablet 1 09/09/2021 10/23/2021 Discontinued (Reorder)Start: 07-31-2021 End: 07-78-9104spcq 1 tablet by mouth once daily at lunchmetFORMIN (GLUCOPHAGE- XR) 500 MG 24 hr tablet Indications: Insulin resistance Take 1 (one) tablet (500 mg total) by mouth daily with lunch During lunch . 30 tablet 1 10/23/2021 11/30/2021 [place]continuedmiscellaneous [place] [facility]Start: 04-28-2021 End: 80-17-6385teebvzugocfqp [place] [facility] [place]: Obesity, Class III, BMI 40-49.9 (morbid obesity) ([facility]) Weight Scale dx obesity class III . 1 each 0 04/28/2021 01/06/2022 DiscontinuedStart: 94-33-1145zcmdkkhydbajo medical [place] [facility]ications: Obesity, Class III, BMI 40-49.9 (morbid obesity) ([facility]) Weight Scale dx obesity class III . 1 each 0 04/28/2021 ActiveMOUNJARO 15 MG/0.5ML SOPN SC injection (1 source)Start: 11-25-2023 End: 35-32-0841AJCHOMZW 15 MG/0.5ML SOPN SC injection Inject 0.5 mLs into the skin once a week 11/25/2023 07/16/2024 Discontinued (LIST CLEANUP)naltrexone hydrochloride 50 mg oral tablet (3 sources)Opioid AntagonistStart: 07-31-2021 End: 68-95-7321qqzw 0.25 tablet by mouth once daily at breakfast, then take 0.25 tablet by mouth at breakfast, then take 0.25 tablet by mouth at lunchnaltrexone (DEPADE, REVIA) 50 mg tablet Indications: Atypical eating disorder 1/4 tab po every day with breakfast for 2 weeks then 1/4 tab po with breakfast and 1/4 tab with lunch . 15 tablet 1 07/31/2021 09/09/2021 DiscontinuedoxyCODONE hydrochloride 5 mg oral tablet (1 source)Opioid AgonistStart: 07-26-2024 End: 88-19-6317hqes 1 dose by mouth once5 mg, Oral, ONCE PRN, 1 dose, Starting on [facility] 07/26/24 at 1217, Until [facility] 07/26/24 at 1634, Pain Moderate (4-6), Pain Severe (7-10), PHASE II, PACU onlypredniSONE 10 mg oral tablet (9 sources)Start: 06-29-2021 End: 11-05-3064kdiygmLLFY (DELTASONE) 10 MG tablet Indications: Cough 4 tablets daily x 3 days, 3 tablets daily x 3 days, 2 tablets daily x 3 days, 1 tablet daily x 3 days . 30 tablet 0 06/29/2021 01/06/2022 Discontinuedpromethazine hydrochloride 12.5 mg oral tablet (1 source)PhenothiazineStart: 07-26-2024 End: 56-66-7723fhzj 1 dose by mouth once12.5 mg, Oral, ONCE, 1 dose, On [facility] 07/26/24 at 0745Start: 07-26-2024 End: 68-22-1724yrgm 1 dose by mouth once12.5 mg, Oral, ONCE, 1 dose, On [facility] 07/26/24 at 0745SUMAtriptan 50 mg oral tablet (20 sources)Serotonin-1b and Serotonin-1d Receptor AgonistStart: 12-20-2019 End: 69-43-1000trec 1 tablet by mouth every two hours as neededSUMAtriptan (IMITREX) 50 MG tablet Indications: Migraine with aura and without status migrainosus, not intractable Take 1 (one) tablet (50 mg total) by mouth every 2 (two) hours as needed for migraine Max of 200 mg in 24hrs . 10 tablet 1 12/20/2019 01/06/2022 Discontinued (Patient Discharge)tirzepatide (Mounjaro) 15 mg/0.5 mL Pen (20 sources)Start: 03-06-2024 End: 84-40-3552ieoljwucsgt (Mounjaro) 15 mg/0.5 mL Pen Indications: Insulin resistance Inject 0.5 mL (15 mg total)under the skin every 7 days . 2 mL 5 03/06/2024 04/17/2024 DiscontinuedStart: 15-20-8406gjvaisfakiz (Mounjaro) 15 mg/0.5 mL Pen Indications: Insulin resistance Inject 0.5 mL (15 mg total)under the skin every 7 days . 2 mL 5 03/06/2024 ActiveStart: 11-18-2023 End: 20-10-9439nhermmnjdzi (Mounjaro) 15 mg/0.5 mL Pen Indications: Insulin resistance Inject 0.5 mL (15 mg total)under the skin every 7 days . 2 mL 5 11/18/2023 03/06/2024 Discontinued (Reorder (Suppress CancelRxMessage to Pharmacy))Start: 40-43-9650wvvdsuvuqdc (Mounjaro) 15 mg/0.5 mL Pen Indications: Insulin resistance Inject 0.5 mL (15 mg total)under the skin every 7 days . 2 mL 5 11/18/2023 ActiveStart: 07-13-2023 End: 30-24-5179waqfrgmbtem (Mounjaro) 15 mg/0.5 mL Pen Indications: Insulin resistance Inject 0.5 mL (15 mg total)under the skin every 7 days . 2 mL 5 07/13/2023 11/18/2023 Discontinued (Reorder (Suppress CancelRxMessage to Pharmacy))Start: 73-16-7702jowhkuqyjhe (Mounjaro) 15 mg/0.5 mL Pen Indications: Insulin resistance Inject 0.5 mL (15 mg total)under the skin every 7 days . 2 mL 5 07/13/2023 ActiveStart: 06-09-2023 End: 45-29-6004xpmuaakvtgk (Mounjaro) 15 mg/0.5 mL Pen Indications: Insulin resistance Inject 0.5 mL (15 mg total)under the skin every 7 days . 2 mL 5 06/09/2023 07/13/2023 Discontinued (Reorder (Suppress CancelRxMessage to Pharmacy))Start: 54-17-9610frensolbkad (Mounjaro) 15 mg/0.5 mL Pen Indications: type 2 diabetes mellitus Inject 0.5 mL (15 mg total) under the skin every 7 days Reasons: type 2 diabetes mellitus. 2 mL 5 04/07/2023 ActiveStart: 01-21-2023 End: 47-24-6307sfzbdnuocwq (Mounjaro) 15 mg/0.5 mL Pen Indications: type 2 diabetes mellitus Inject 0.5 mL (15 mg total) under the skin every 7 days Reasons: type 2 diabetes mellitus. 2 mL 5 01/21/2023 04/07/2023 Discontinued (Reorder (Suppress CancelRx Message to Pharmacy))Start: 53-14-4227okidlnqqpbc (Mounjaro) 15 mg/0.5 mL Pen Indications: type 2 diabetes mellitus Inject 0.5 mL (15 mg total) under the skin every 7 days Reasons: type 2 diabetes mellitus. 2 mL 5 01/21/2023 ActiveStart: 24-25-0038yqdaiuqzudg (Mounjaro) 15 mg/0.5 mL Pen Indications: type 2 diabetes mellitus Inject 0.5 mL (15 mg total) under the skin every 7 days Reasons: type 2 diabetes mellitus. 2 mL 2 10/27/2022 Active tirzepatide (Mounjaro) 5 mg/0.5 mL Pen (2 sources)Start: 05-17-2022 End: 12-42-4974tgwhnwnmeip (Mounjaro) 5 mg/0.5 mL Pen Indications: Insulin resistance , BMI 40.0-44.9, adult (HCC)Inject 0.5 mL (5 mg total) under the skin every 7 days . 2 mL 1 05/17/2022 05/19/2022 DiscontinuedStart: 05-17-2022 tirzepatide (Mounjaro) 5 mg/0.5 mL Pen Indications: Insulin resistance , BMI 40.0-44.9, adult (HCC)Inject 0.5 mL (5 mg total) under the skin every 7 days . 2 mL 1 05/17/2022 Activetirzepatide (Mounjaro) 7.5 mg/0.5 mL Pen (6 sources)Start: 06-17-2022 End: 20-56-4126utymtoapumo (Mounjaro) 7.5 mg/0.5 mL Pen Indications: Metabolic syndrome Inject 0.5 mL (7.5 mg total) under the skin every 7 days . 2 mL 1 06/17/2022 07/27/2022 DiscontinuedStart: 49-79-4178bqywnlnbqqf (Mounjaro) 7.5 mg/0.5 mL Pen Indications: Metabolic syndrome Inject 0.5 mL (7.5 mg total) under the skin every 7 days . 2 mL 1 06/17/2022 ActiveStart: 05-19-2022 End: 04-24-1880qhvvclxzhdm (Mounjaro) 7.5 mg/0.5 mL Pen Indications: Metabolic syndrome Inject 0.5 mL (7.5 mg total) under the skin every 7 days . 2 mL 1 05/19/2022 06/17/2022 Discontinued (Reorder)Start: 66-93-6144uxwxbzugmbz (Mounjaro) 7.5 mg/0.5 mL Pen Indications: Metabolic syndrome Inject 0.5 mL (7.5 mg total) under the skin every 7 days . 2 mL 1 05/19/2022 Activevenlafaxine 37.5 mg oral tablet (14 sources)Serotonin and Norepinephrine Reuptake InhibitorStart: 08-24-2019 End: 97-81-6195uylu 1 tablet by mouth twice dailyvenlafaxine (EFFEXOR) 37.5 MG tablet Indications: Anxiety and depression Take 1 (one) tablet (37.5 mg total) by mouth 2 (two) times a day . 60 tablet 1 08/24/2019 10/29/2019 Discontinued (Ineffective) Problems Active Problems Problem ClassificationProblemDateDocumented DateEpisodic/Chronic Administrative/social admission (3 sources)Patient encounter status; Translations: [Other specified counseling] EpisodicAnxiety disorders (20 sources)Mixed anxiety and depressive disorder; Translations: [Anxiety disorder, unspecified]Onset: [id number] (1 source)Mild intermittent asthma; Translations: [Mild intermittent asthma, uncomplicated]ChronicGenitourinary symptoms and ill-defined conditions (1 source)Dysuria; Translations: [Dysuria]EpisodicHeadache; including migraine (20 sources)Migraine; Translations: [Migraine with aura]Onset: 12-20-2019 83-65-3163NtzilemCbrabmv`s disease (20 sources)Hodgkin's disease (clinical); Translations: [Hodgkin lymphoma, unspecified, unspecified site]Onset: [id number]blhf and screening for infectious disease (3 sources)Contact with or exposure to other viral diseases; Translations: [Exposure to COVID-19 virus]Onset: 34-91-4421DartrwofPiqnw disorders and dislocations; trauma-related (1 source)Patellofemoral stress syndrome; Translations: [Patellofemoral disorders, unspecified knee]ChronicMalaise and fatigue (4 sources)Fatigue; Translations: [Other fatigue]Onset: 97-12-8669Ouwcmrrj Menstrual disorders (4 sources)Excessive and frequent menstruation with regular cycle; Translations: [EXCESS FREQ MENSTRUATION W/REG CYCL]Onset: 75-70-3943UkwcdcmKhorjchnqqhmi mental health disorders (20 sources)Eating disorder; Translations: [Eating disorder, unspecified]Onset: [id number] disorders (16 sources)Depressive disorder; Translations: [Major depressive disorder, single episode, unspecified]ChronicMood disorders (20 sources)Mood disorders; Translations: [Depression, unspecified]Onset: [id number] deficiencies (20 sources)Vitamin D deficiency; Translations: [Vitamin D deficiency, unspecified]Onset: 48-71-9191VeyazffDfaxp connective tissue disease (1 source)Diastasis recti; Translations: [Separation of muscle (nontraumatic), other site]37-62-4758WygzuloyTlklo connective tissue disease (1 source)Separation of muscle (nontraumatic), other site; Translations: [Separation of muscle (nontraumatic), other site]Onset: 85-72-1674HozchnvqPbuqi connective tissue disease (1 source)Tendonitis of left wrist; Translations: [Tendonitis of wrist, left] Other gastrointestinal disorders (1 source)Intestinal malabsorption; Translations: [Intestinal malabsorption, unspecified]ChronicOther gastrointestinal disorders (1 source)Diarrhea; Translations: [Diarrhea, unspecified]EpisodicOther gastrointestinal disorders (1 source)Constipation; Translations: [Constipation, unspecified]04-17-2024 EpisodicOther liver diseases (1 source)Steatosis of liver; Translations: [Fatty (change of) liver, not elsewhere classified]ChronicOther lower respiratory disease (1 source)Dyspnea; Translations: [Dyspnea, unspecified]EpisodicOther non- traumatic joint disorders (1 source)Pain in right knee; Translations: [Pain in joint, lower leg]Episodic Other nutritional; endocrine; and metabolic disorders (20 sources)Obese class II; Translations: [Obesity, unspecified]Onset: 187444-80-0276JheciatKviey nutritional; endocrine; and metabolic disorders (20 sources)Insulin resistance; Translations: [Metabolic syndrome]Onset: 03-07-2020 Resolved: 189885-47-1671IgfjqerRrpri nutritional; endocrine; and metabolic disorders (20 sources)Body mass index 40+ - severely obese; Translations: [Body mass index (BMI) 45.0-49.9, adult]ChronicOther nutritional; endocrine; and metabolic disorders (8 sources)Morbid obesity; Translations: [Morbid (severe) obesity due to excess calories]ChronicOther nutritional; endocrine; and metabolic disorders (3 sources)Metabolic syndrome X; Translations: [Metabolic syndrome]Onset: 94-18-0209ZtkefnfSinwz nutritional; endocrine; and metabolic disorders (15 sources)Body mass index 30+ - obesity; Translations: [Body mass index (BMI) 38.0-38.9, adult]ChronicOther nutritional; endocrine; and metabolic disorders (8 sources)Obese class I; Translations: [Obesity, unspecified]23-01-1358Flbkxxe Other nutritional; endocrine; and metabolic disorders (1 source)Metabolic syndrome; Translations: [Metabolic syndrome]Onset: 34-68-2077AwqjgpgEmbkl nutritional; endocrine; and metabolic disorders (1 source)Excess panniculus of abdomen; Translations: [Localized adiposity] 90-25-5920AkqekblKqjrn nutritional; endocrine; and metabolic disorders (1 source)Localized adiposity; Translations: [Localized adiposity]Onset: 24-06-0671ZtqzkfcUmlow nutritional; endocrine; and metabolic disorders (2 sources)Body mass index (BMI) 32.0-32.9, adult; Translations: [Body mass index (BMI) 32.0-32.9, adult]Onset: 02-17-9139BsloqimGfwdo nutritional; endocrine; and metabolic disorders (2 sources)Body mass index (BMI) 33.0-33.9, adult; Translations: [Body mass index (BMI) 33.0-33.9, adult]Onset: 42-73-4586UepzigdNyjax nutritional; endocrine; and metabolic disorders (2 sources)Body mass index (BMI) 35.0-35.9, adult; Translations: [Body mass index (BMI) 35.0-35.9, adult]Onset: 89-02-5772FzovdewVhnnu nutritional; endocrine; and metabolic disorders (5 sources)Body mass index 25-29 - overweight; Translations: [Overweight] 78-13-8372HfthxkzqNcdkq nutritional; endocrine; and metabolic disorders (5 sources)Overweight in adulthood with body mass index of 25 or more but less than 30; Translations: [Body mass index (BMI) 29.0-29.9, adult]05-09-2023 EpisodicOther nutritional; endocrine; and metabolic disorders (20 sources)Obese class II; Translations: [Obesity, Class II, BMI 35-39.9]Onset: Other screening for suspected conditions (not mental disorders or infectious disease) (6 sources)Liver function tests abnormal; Translations: [Other specified abnormal findings of blood chemistry]Onset: 51-17-1602VumzoswlValja skin disorders (1 source)Loss of hair; Translations: [Hair loss]EpisodicOther upper respiratory infections (1 source)Sinusitis; Translations: [Sinusitis, unspecified chronicity, unspecified location]EpisodicOvarian cyst (1 source)Other ovarian cyst, left side; Translations: [OTHER OVARIAN CYST LEFT SIDE]Onset: 93-09-1002SrxmrkkfExmtdfid codes; unclassified (1 source)Needs influenza immunization; Translations: [Need for influenza vaccination]EpisodicResidual codes; unclassified (1 source)Sleep disorder; Translations: [Sleep disorder, unspecified]Episodic Residual codes; unclassified (2 sources)Other specified postprocedural states; Translations: [Other specified postprocedural states]Onset: 30-44-6496AkowxfijQamtirir codes; unclassified (1 source)Postoperative state; Translations: [Other specified postprocedural states]09-66-2694KuuswqxdZnhifgyk codes; unclassified (2 sources)14 weeks gestation of ; Translations: [14 weeks gestation of ]Onset: 38-28-1389Hxvfuszcjtw; intervertebral disc disorders; other back problems (4 sources)Chronic low back pain; Translations: [Low back pain]EpisodicSprains and strains (1 source)Rupture of gastrocnemius tendon; Translations: [Strain of other muscle(s) and tendon(s) of posterior muscle group at lower leg level, right leg, initial encounter]EpisodicSuperficial injury; contusion (6 sources)Contusion of abdominal wall, initial encounter; Translations: [Seroma]Onset: 914022-81-7877CpxiyjbnWeoianf disorders (20 sources)Hypothyroidism; Translations: [Hypothyroidism, unspecified]Onset: 546198-19-1660WbtwzrsLpmefnkwphbr (2 sources)Patient encounter status; Translations: [Annual physical exam]Onset: 666857-92-9695Engplhaawpvq (2 sources)Insulin resistance, unspecified; Translations: [Insulin resistance, unspecified]Onset: 95-70-5962Ygppftagdovz (1 source)Obesity, class 1; Translations: [Obesity, class 1]Onset: 03-12-2025 Unclassified (1 source)Obesity, class 2; Translations: [Obesity, class 2]Onset: 04-10-2019 Viral infection (2 sources)Herpes simplex; Translations: [Herpesviral infection, unspecified] 29-44-7343Fquthjtq Past or Other Problems Problem ClassificationProblemDateDocumented DateEpisodic/ChronicGastrointestinal hemorrhage (20 sources)Rectal hemorrhage; Translations: [Hemorrhage of anus and rectum] Onset: 12-42-4756FejbdfpxXlqnofteeuv (20 sources)Internal hemorrhoids; Translations: [Other hemorrhoids]Onset: 36-48-1202JlvhndfpCilxlkwxvvdwn (20 sources)Lymphadenopathy; Translations: [Generalized enlarged lymph nodes] Onset: 08-24-2019 Resolved: 167531-68-8481NsikuinxFgynumlsrmj deficiencies (20 sources)Vitamin B6 deficiency; Translations: [Pyridoxine deficiency]Onset: 23-57-9123OvcxiawxUkwwc connective tissue disease (20 sources)Swelling of lower limb; Translations: [Other specified soft tissue disorders]Onset: 740280-21-5021XhoauumrDvycu connective tissue disease (20 sources)Tenosynovitis of right wrist; Translations: [Synovitis and tenosynovitis, unspecified]Onset: 04-10-2019 Resolved: 539984-82-0051RqcamzkhUnzpw connective tissue disease (20 sources)Tenosynovitis of right wrist; Translations: [Tenosynovitis of right wrist]Onset: 04-10-2019 Resolved: Other female genital disorders (20 sources)Vaginal bleeding; Translations: [Abnormal uterine and vaginal bleeding, unspecified]Onset: 08-04-2020 Resolved: 529482-42-6061NkuuphpDwwef female genital disorders (8 sources)Vaginal bleeding; Translations: [Vaginal bleeding]Onset: 08-04-2020 88-39-8619GufzaiwsXcxmp lower respiratory disease (20 sources)Cough; Translations: [Cough]Onset: 84-44-3477XovlnimcOrrzh non- traumatic joint disorders (1 source)Pain in wrist; Translations: [Pain and swelling of left wrist]Episodic Other nutritional; endocrine; and metabolic disorders (20 sources)Weight gain; Translations: [Abnormal weight gain]Onset: 02-06-2020 Resolved: 492275-74-6332ObfjnpxeOdojv nutritional; endocrine; and metabolic disorders (13 sources)Weight increased; Translations: [Abnormal weight gain]Onset: 02-06-2020 Resolved: 296117-00-9543AuvjtehrNdtzq nutritional; endocrine; and metabolic disorders (13 sources)Insulin resistance; Translations: [Insulin resistance]Onset: 03-07-2020 Resolved: Other skin disorders (1 source)Eruption; Translations: [Rash]EpisodicResidual codes; unclassified (20 sources)Disturbance in sleep behavior; Translations: [Sleep disorder, unspecified]Onset: 589264-44-6268VbjbssmsWgnxbvkbmprr (2 sources)Insulin resistance, unspecified; Translations: [Insulin resistance, unspecified]Onset: 02-12-4972Hxsxrjgcvhgr (1 source)Obesity, class 1; Translations: [Obesity, class 1]Onset: 03-12-2025 Unclassified (1 source)Obesity, class 2; Translations: [Obesity, class 2]Onset: 12-10-2024 NEGATED: Highlighted row has been ruled out!Unclassified (1 source)No known active problems Results Test NameValueInterpretationReference RangeFacilityCBC (H/H, RBC, INDICES, WBC, PLT)on 78-39-7703Kpcpqnyigch distribution width (RBC) [Ratio]13.4 %Normal 11.0-15.0Quest DiagnosticsComment on above:Performed By: #### 51786, 496, 99012, 927, 466, 1759, 80920, 7573, 457, 14276 #### [facility] [address], [address] [place] [address] Painter Rough: Jose Pacheco MD #### 926 #### [facility]/[address] [place], [place] Painter Rough: Hakeem Almonte M.D.,PhDHematocrit (Bld) [Volume fraction]47.3 %High35.0-45.0Quest DiagnosticsComment on above:Performed By: #### 97251, 496, 87875, 927, 466, 1759, 94541, 7573, 457, 48695 #### [facility] [address] Painter Rough: Jose Pacheco MD #### 926 #### [facility]/[address] [place], [place] Painter Rough: Hakeem Almonte M.D.,PhDHemoglobin (Bld) [Mass/Vol]15.0 g/dL Lzkpup85.7-15.5Quest DiagnosticsComment on above:Performed By: #### 60012, 496, 93259, 927, 466, 1759, 30983, 7573, 457, 31084 #### [facility] [address], [address] [place] [address] Painter Rough: Jose Pacheco MD #### 926 #### [facility]/[address] [place], [place] Painter Rough: Hakeem Almonte M.D.,[facility] (RBC) [Entitic mass]30.4 pgNormal 27.0-33.0Quest DiagnosticsComment on above:Performed By: #### 29505, 496, 15709, 927, 466, 1759, 67047, 7573, 457, 52501 #### [facility] [place] [address] , [address] [place] [address] Painter Rough: Jose Pacheco MD #### 926 #### [facility]/[place] [id number] [facility] [place], [place] Painter Rough: Hakeem Almonte M.D.,[facility] (RBC) [Mass/Vol]31.7 g/dLLow 32.0-36.0Quest DiagnosticsComment on above:Result Comment: For adults, a slight decrease in the calculated MCHC value (in the range of 30 to 32 g/dL) is most likely not clinically significant; however, it should be interpreted with caution in correlation with other red cell parameters and the patient's clinical condition.Performed By: #### 08788, 496, 10693, 927, 466, 1759, 36541, 7573, 457, 27414 #### [facility] [place] [address] , [address] [place] [address] Painter Rough: Jose Pacheco MD #### 926 #### [facility] [place], [place] Painter Rough: Hakeem Almonte M.D.,[facility] (RBC) [Entitic vol]95.7 fLNormal 80.0-100.0Quest DiagnosticsComment on above:Performed By: #### 59544, 496, 28207, 927, 466, 1759, 42984, 7573, 457, 04312 #### [facility] [place] [address], [address] [place] [address] Painter Rough: Jose Pacheco MD #### 926 #### [facility]/[address] [place], [place] Painter Rough: Hakeem Almonte M.D.,PhDPlatelet mean volume (Bld) [Entitic vol]11.7 fLNormal7.5-12.5Quest DiagnosticsComment on above:Performed By: #### 79319, 496, 85860, 927, 466, 1759, 62105, 7573, 457, 59317 #### [facility] of [address], [address] [place], [place] [id number] Painter Rough: Jose Pacheco MD #### 926 #### [facility]/[address] [place], [place] Painter Rough: Hakeem Almonte M.D.,PhDPlatelets (Bld) [#/Vol]219 10*3/uL Whnyim971-744Ylahm DiagnosticsComment on above:Performed By: #### 68627, 496, 13231, 927, 466, 1759, 87891, 7573, 457, 50142 #### [facility] of [address], [address] [place], [place] [id number] Painter Rough: Jose Pacheco MD #### 926 #### [facility]/[address] [place], [place] Painter Rough: Hakeem Almonte M.D.,PhDRBC (Bld) [#/Vol]4.94 10*6/uLNormal 3.80-5.10Quest DiagnosticsComment on above:Performed By: #### 06466, 496, 58803, 927, 466, 1759, 78159, 7573, 457, 83128 #### [facility] of [facility] [address] , [address] [place], [place] [id number] Painter Rough: Jose Pacheco MD #### 926 #### [facility]/[place] [id number] [facility] [address] [place] Painter Rough: Hakeem Almonte M.D.,PhDWBC (Bld) [#/Vol]4.6 10*3/uLNormal 3.8-10.8Quest DiagnosticsComment on above:Performed By: #### 64566, 496, 23762, 927, 466, 1759, 09843, 7573, 457, 53262 #### [facility] [address], [address] [place], [place] [address] Painter Rough: Jose Pacheco MD #### 926 #### [facility]/[place] [id number] [facility] [place], [place] Painter Rough: Hakeem Almonte M.D.,PhDCOMPREHENSIVE METABOLIC PANEL W/ANION GAPon 93-80-3543Iyuyasz [Mass/Vol]4.6 g/dLNormal3.6-5.1Quest DiagnosticsComment on above:Performed By: #### 59225, 496, 65546, 927, 466, 1759, 67466, 7573, 457, 96677 #### [facility] [place] [id number] Painter Rough: Jose Pacheco MD #### 926 #### [facility] [address] [facility] [address] [place] Painter Rough: Hakeem Almonte M.D.,PhDALP [Catalytic activity/Vol]65 U/L Kelhid56-839Syeqk DiagnosticsComment on above:Performed By: #### 23760, 496, 85824, 927, 466, 1759, 79175, 7573, 457, 08740 #### [facility] of [address], [address] [place], [place] [id number] Painter Rough: Jose Pacheco MD #### 926 #### [facility]/[place] [id number] [facility] [address] [place], [place] Painter Rough: Hakeem Almonte M.D.,PhDALT [Catalytic activity/Vol]14 U/L Normal6-29Quest DiagnosticsComment on above:Performed By: #### 06157, 496, 48181, 927, 466, 1759, 32809, 7573, 457, 42190 #### [facility] of [address], [address] [place], [place] [id number] Painter Rough: Jose Pacheco MD #### 926 #### [facility]/[address] [place], [place] Painter Rough: Hakeem Almonte M.D.,PhDAST [Catalytic activity/Vol]16 U/L Qpmgih26-11Zhrmu DiagnosticsComment on above:Performed By: #### 22560, 496, 13459, 927, 466, 1759, 61060, 7573, 457, 72761 #### [facility] of [address], [address] [place], [place] [id number] Painter Rough: Jose Pacheco MD #### 926 #### [facility]/[address] [place], [place] Painter Rough: Hakeem Almonte M.D.,PhDBilirubin [Mass/Vol]0.6 mg/dLNormal 0.2-1.2Quest DiagnosticsComment on above:Performed By: #### 57786, 496, 99448, 927, 466, 1759, 17211, 7573, 457, 58911 #### [facility] [address], [address] [place], [place] [id number] Painter Rough: Jose Pacheco MD #### 926 #### [facility]/[place] [id number] [facility] [place], [place] Painter Rough: Hakeem Almonte M.D.,PhDCalcium [Mass/Vol]9.3 mg/dLNormal 8.6-10.2Quest DiagnosticsComment on above:Performed By: #### 88439, 496, 09777, 927, 466, 1759, 16076, 7573, 457, 45338 #### [facility] of [address], [address] [place], [place] [id number] Painter Rough: Jose Pacheco MD #### 926 #### [facility]/[address] [place], [place] Painter Rough: Hakeem Almonte M.D.,PhDChloride [Moles/Vol]104 mmol/LNormal 98-110Quest DiagnosticsComment on above:Performed By: #### 06765, 496, 99136, 927, 466, 1759, 03893, 7573, 457, 92107 #### [facility] of [address], [address] [place], [place] [address] Painter Rough: Jose Pacheco MD #### 926 #### [facility]/[address] [place], [place] Painter Rough: Hakeem Almonte M.D.,PhDCO2 [Moles/Vol]22 mmol/DWypjgp37-01 Quest DiagnosticsComment on above:Performed By: #### 33378, 496, 14170, 927, 466, 1759, 79108, 7573, 457, 54137 #### [facility] of [address], [address] [place], [place] [id number] Painter Rough: Jose Pacheco MD #### 926 #### [facility]/[address] [place], [place] Painter Rough: Hakeem Almonte M.D.,PhDCreatinine [Mass/Vol]0.61 mg/dLNormal 0.50-0.97Quest DiagnosticsComment on above:Performed By: #### 31425, 496, 76183, 927, 466, 1759, 21572, 7573, 457, 34297 #### [facility] of [address], [address] [place] [address] Painter Rough: Jose Pacheco MD #### 926 #### [facility] [place], [place] Painter Rough: Hakeem Almonte M.D.,PhDELECTROLYTE FPQLYNH27 mmol/L (calc) Normal7-17Quest DiagnosticsComment on above:Performed By: #### 06867, 496, 42308, 927, 466, 1759, 81846, 7573, 457, 61796 #### [facility] of [address], [address] [place] [address] Painter Rough: Jose Pacheco MD #### 926 #### [facility] [place] Painter Rough: Hakeem Almonte M.D.,PhDGFR/1.73 sq M.predicted among non- blacks MDRD (S/P/Bld) [Vol rate/Area]118 mL/min/{1.73_m2}Normal> OR = 60Quest DiagnosticsComment on above:Performed By: #### 12567, 496, 94866, 927, 466, 1759, 01148, 7573, 457, 06463 #### [facility] [address], [address] [place] [address] Painter Rough: Jose Pacheco MD #### 926 #### [facility] [place] Painter Rough: Hakeem Almonte M.D.,PhDGlucose [Mass/Vol]70 mg/oWJszofa12-55 Quest DiagnosticsComment on above:Result Comment: Fasting reference intervalPerformed By: #### 01976, 496, 38689, 927, 466, 1759, 51254, 7573, 457, 60030 #### [facility] of [address], [address] [place], [place] [address] Painter Rough: Jose Pacheco MD #### 926 #### [facility] [place] Painter Rough: Hakeem Almonte M.D.,PhDPotassium [Moles/Vol]4.0 mmol/LNormal 3.5-5.3Quest DiagnosticsComment on above:Performed By: #### 52763, 496, 42159, 927, 466, 1759, 79640, 7573, 457, 03829 #### [facility] of [address], [address] [place], [place] [address] Painter Rough: Jose Pacheco MD #### 926 #### [facility] [place] Painter Rough: Hakeem Almonte M.D.,PhDProtein [Mass/Vol]7.4 g/dLNormal 6.1-8.1Quest DiagnosticsComment on above:Performed By: #### 42215, 496, 70285, 927, 466, 1759, 65070, 7573, 457, 15234 #### [facility] of [place] [address] , [address] [place], [place] [address] Painter Rough: Joes Pacheco MD #### 926 #### [facility] [place] Painter Rough: Hakeem Almonte M.D.,PhDSodium [Moles/Vol]138 mmol/LNormal 135-146Quest DiagnosticsComment on above:Performed By: #### 27573, 496, 19604, 927, 466, 1759, 44946, 7573, 457, 39720 #### [facility] of [place] [address], [address] [place], [place] [address] Painter Rough: Jose Pacheco MD #### 926 #### [facility]/[address] [place] Painter Rough: Hakeem Almonte M.D.,PhDUrea nitrogen [Mass/Vol]11 mg/dLNormal 7-25Quest DiagnosticsComment on above:Performed By: #### 83848, 496, 44508, 927, 466, 1759, 28833, 7573, 457, 59451 #### [facility] [address], [address] [place], [place] [address] Painter Rough: Jose Pacheco MD #### 926 #### [facility]/[place] [id number] [facility] [address] [place] Painter Rough: Hakeem Almonte M.D.,PhDFERRITINon 33-18-0585Ttlbekjm [Mass/Vol]94 ng/kOKjptll02-044Ttrii DiagnosticsComment on above:Performed By: #### 00483, 496, 60062, 927, 466, 1759, 66370, 7573, 457, 54556 #### [facility] [place] [id number] Painter Rough: Jose Pacheco MD #### 926 #### [facility]/[place] [address] [facility] [address] [place] Painter Rough: Hakeem Almonte M.D.,PhDFOLATE, SERUMon 32-98-1002Pusxmn [Mass/Vol]ng/mLNormalQuest DiagnosticsComment on above:Result Comment: Reference Range Low: <3.4 Borderline: 3.4-5.4 Normal: >5.4Performed By: #### 54205, 496, 49200, 927, 466, 1759, 17557, 7573, 457, 13279 #### [facility] [address], [address] [place], [place] [address] Painter Rough: Jose Pacheco MD #### 926 #### [facility]/[place] [id number] [facility] [address] [place], [place] Painter Rough: Hakeem Almonte M.D.,PhDHEMOGLOBIN A1con 86-30-1131KuV1s (Bld) [Mass fraction]5.1 %Normal<5.7Quest DiagnosticsComment on above:Result Comment: For the purpose of screening for the presence of diabetes: <5.7% Consistent with the absence of diabetes 5.7-6.4% Consistent with increased risk for diabetes (prediabetes) > or =6.5% Consistent with diabetes This assay result is consistent with a decreased risk of diabetes. Currently, no consensus exists regarding use of hemoglobin A1c for diagnosis of diabetes in children. According to [place] [employer] (ADA) guidelines, hemoglobin A1c <7.0% represents optimal control in non- diabetic patients. Different metrics may apply to specific patient populations. Standards of Medical Care in Diabetes(ADA).Performed By: #### 97768, 496, 15010, 927, 466, 1759, 20327, 7573, 457, 09920 #### [facility] [address], [address] [place], [place] [address] Painter Rough: Jose Pacheco MD #### 926 #### [facility] [place] Painter Rough: Hakeem Almonte M.D.,PhDIRON AND TOTAL IRON BINDING CAPACITYon 02-13-2025% FFZFUWNVGO47 % (calc)Ikpmjs41-23Natdy DiagnosticsComment on above: Performed By: #### 61768, 496, 70761, 927, 466, 1759, 12761, 7573, 457, 23543 #### [facility] [address], [address] [place] [address] Painter Rough: Jose Pacheco MD #### 926 #### [facility] [address] [facility] [place] Painter Rough: Hakeem Almonte M.D.,PhDIRON BINDING GWPMRFIB318 mcg/dL (calc) Zcpmmd373-527Fainy DiagnosticsComment on above:Performed By: #### 66345, 496, 87846, 927, 466, 1759, 39930, 7573, 457, 01199 #### [facility] [place] [id number] Painter Rough: Jose Pacheco MD #### 926 #### [facility]/[address] [place], [place] Painter Rough: Hakeem Almonte M.D.,PhDIRON, OSYST732 mcg/zNDilltx33-337Xipxo DiagnosticsComment on above:Performed By: #### 97447, 496, 00669, 927, 466, 1759, 66805, 7573, 457, 70475 #### [facility] [address], [address] [place], [place] [address] Painter Rough: Jose Pacheco MD #### 926 #### [facility]/[address] [place] Painter Rough: Hakeem Almonte M.D.,PhDLIPID PANEL WITH REFLEX TO DIRECT LDL on 36-95-7317Xdkvwimkeuu [Mass/Vol]163 mg/dLNormal<200Quest DiagnosticsComment on above:Order Comment: FASTING:YES FASTING: YESPerformed By: #### 16702, 496, 44948, 927, 466, 1759, 44036, 7573, 457, 11261 #### [facility] of [address], [address] [place], [place] [address] Painter Rough: Jose Pacheco MD #### 926 #### [facility]/[place] [address] [facility] [place] Painter Rough: Hakeem Almonte M.D.,PhDCholesterol in HDL [Mass/Vol]63 mg/dL Normal> OR = 50Quest DiagnosticsComment on above:Order Comment: FASTING:YES FASTING: YESPerformed By: #### 08730, 496, 78113, 927, 466, 1759, 31790, 7573, 457, 54767 #### [facility] [address], [address] [place], [place] [address] Painter Rough: Jose Pacheco MD #### 926 #### [facility] [address] [facility] [place] Painter Rough: Hakeem Almonte M.D.,PhDCholesterol in LDL [Mass/Vol]86 mg/dL NormalQuest DiagnosticsComment on above:Order Comment: FASTING:YES FASTING: YESResult Comment: Reference range: <100 Desirable range <100 mg/dL for primary prevention; <70 mg/dL for patients with CHD or diabetic patients with > or = 2 CHD risk factors. LDL-C is now calculated using the Jae calculation, which is a validated novel method providing better accuracy than the Friedewald equation in the estimation of LDL-C. Jung SS et al. JOANA. 2013;310(19): 5427-4820 (http://education.[employer]/faq/IHR935)Performed By: #### 93147, 496, 94825, 927, 466, 1759, 77064, 7573, 457, 98625 #### [facility] [address], [address] [place], [place] [address] Painter Rough: Jose Pacheco MD #### 926 #### [facility] [address] [facility] [place] Painter Rough: Hakeem Almonte M.D.,PhDCholesterol.total/Cholesterol in HDL [Mass ratio]2.6 {ratio}Normal<5.0Quest DiagnosticsComment on above:Order Comment: FASTING:YES FASTING: YESPerformed By: #### 34401, 496, 05795, 927, 466, 1759, 04970, 7573, 457, 06598 #### [facility] [address], [address] [place], [place] [address] Painter Rough: Jose Pacheco MD #### 926 #### [facility]/[place] [id number] [facility] [place] Painter Rough: Hakeem Almonte M.D.,PhDNON HDL ZZSCZCHJNGH305 mg/dL (calc) Normal<130Quest DiagnosticsComment on above:Order Comment: FASTING:YES FASTING: YESResult Comment: For patients with diabetes plus 1 major ASCVD risk factor, treating to a non-HDL-C goal of <100 mg/dL (LDL-C of <70 mg/dL) is considered a therapeutic option.Performed By: #### 15494, 496, 04623, 927, 466, 1759, 05998, 7573, 457, 95158 #### [facility] [address], [address] [place] [address] Painter Rough: Jose Pacheco MD #### 926 #### [facility] [place], [place] Painter Rough: Hakeem Almonte M.D.,PhDTriglyceride [Mass/Vol]46 mg/dLNormal <150Quest DiagnosticsComment on above:Order Comment: FASTING:YES FASTING: YESPerformed By: #### 06679, 496, 37724, 927, 466, 1759, 19348, 7573, 457, 53840 #### [facility] [address], [address] [place], [place] [address] Painter Rough: Jose Pacheco MD #### 926 #### [facility] [address] [facility] [place], [place] Painter Rough: Hakeem Almonte M.D.,PhDTSH W/REFLEX TO FT4on 21-54-8963VOB W/REFLEX TO FT42.28 mIU/LNormalQuest DiagnosticsComment on above:Result Comment: Reference Range > or = 20 Years 0.40-4.50 Ranges First trimester 0.26-2.66 Second trimester 0.55-2.73 Third trimester 0.43-2.91Performed By: #### 47500, 496, 41938, 927, 466, 1759, 91563, 7573, 457, 44771 #### [facility] [place] [address] Painter Rough: Jose Pacheco MD #### 926 #### [facility] [address] [facility] [place], [place] Painter Rough: Hakeem Almonte M.D.,PhDVITAMIN B12on 57-67-9629Mpqbdzxrl (Vitamin B12) [Mass/Vol]288 pg/eVHvvhap736-9630Tbxif DiagnosticsComment on above:Result Comment: Please Note: Although the reference range for vitamin B12 is 200-1100 pg/mL, it has been reported that between 5 and 10% of patients with values between 200 and 400 pg/mL may experience neuropsychiatric and hematologic abnormalities due to occult B12 deficiency; less than 1% of patients with values above 400 pg/mL will have symptoms.Performed By: #### 49515, 496, 49530, 927, 466, 1759, 94173, 7573, 457, 46726 #### [facility] [employer] [facility] [place] [address] Painter Rough: Jose Pacheco MD #### 926 #### [facility] [address] [facility] [place], [place] Painter Rough: Hakeem Almonte M.D.,PhDVITAMIN B6, PLASMAon 99-85-3267MTIXNUE B6, PLASMA4.1 ng/mLNormal2.1-21.7Quest DiagnosticsComment on above:Result Comment: Vitamin supplementation within 24 hours prior to blood draw may affect the accuracy of the results. This test was developed and its analytical performance characteristics have been determined by [facility] [place], [place]. It has not been cleared or approved by the U.S. Food and Drug Administration. This assay has been validated pursuant to the CLIA regulations and is used for clinical purposes.Performed By: #### 21480, 496, 37344, 927, 466, 1759, 80867, 7573, 457, 50986 #### [facility] [address] [facility], [address] [place], [place] [phone] Painter Rough: Jose Pacheco MD #### 926 #### [facility]/[place] [id number] [facility] [address] [place], [place] Painter Rough: Hakeem Almonte M.D.,PhDVITAMIN D,25-OH,TOTAL,IAon 02-13-2025 VITAMIN D,25-OH,TOTAL,IA33 ng/cIYqajjh07-846Jtxvx DiagnosticsComment on above: Result Comment: Vitamin D Status 25-OH Vitamin D: Deficiency: <20 ng/mL Insufficiency: 20 - 29 ng/mL Optimal: > or = 30 ng/mL For 25-OH Vitamin D testing on patients on D2-supplementation and patients for whom quantitation of D2 and D3 fractions is required, the QuestAssureD(TM) 25-OH VIT D, (D2,D3), LC/MS/MS is recommended: order code 95410 (patients >2yrs). See Note 1 Note 1 For additional information, please refer to http://education.[employer].Saplo/faq/LFS463 (This link is being provided for informational/ educational purposes only.)Performed By: #### 17518, 496, 60136, 927, 466, 1759, 14273, 7573, 457, 47279 #### [facility] [address], [address] [place], [place] [address] Painter Rough: Jose Pacheco MD #### 926 #### [facility] [address] [facility] [address] [place] Painter Rough: Hakeem Almonte M.D.,PhDIR ASP ABSCESS/HEMATOMA/BULLA/CYSTon 94-68-0522Suhaikvzsi ultrasound-guided anterior pelvic seroma aspiration resulting in evacuation of the collection. Brad Rodgers MD - 08/30/2024 PROCEDURE: ULTRASOUND GUIDED ABDOMINAL FLUID COLLECTION ASPIRATION 08/30/2024 2:27 pm HISTORY: ORDERING SYSTEM PROVIDED HISTORY: Abdominal wall seroma, subsequent encounter SEDATION: None. Local anesthetic only. TECHNIQUE/PROCEDURE DETAILS: IMPLEMENTATION ARCHITECT: Brad Ortega Informed consent was obtained after a detailed explanation of the procedure including risks. Sharples protocol was followed. Initial ultrasound the anterior pelvic wall near the healing transverse incision demonstrated only scant fluid in the subcutaneous tissues which was insufficient for drainage. The patient reported that she perceived this fluid in the standing position. After trialing a few positions, the fluid along the anterior pelvic wall was best seen in the left lateral decubitus position. The overlying skin was prepped and draped in sterile manner, and a site overlying the greatest amount of this fluid was selected for skin entry. This site was anesthetized with 1% lidocaine. A 5 Yakut Vivactaeh needle was inserted into the fluid collection under direct ultrasound guidance. 113 mL of serosanguineous fluid was aspirated. (There were no orders for collecting a specimen.) No significant residual fluid was appreciated at the end of the aspiration. The needle sheath was removed. Blood loss was minimal. The patient tolerated the procedure well. After standing up, the patient reported improvement in her symptoms. COMPLICATIONS: None immediately apparent. IMPRESSION: Successful ultrasound-guided anterior pelvic seroma aspiration resulting in evacuation of the collection. [facility] SystemRadiology Study observation (narrative)[facility] [employer] [facility] HospitalIR ASP ABSCESS/HEMATOMA/BULLA/CYSTOrdered By: Brad Ortega on 18-81-5347Gro [facility] [employer] Work Phone: US ABDOMEN LIMITEDon [id number] ABDOMEN LIMITED EXAMINATION: Limited abdominal ultrasound 08/29/2024 10:41 am COMPARISON: None. HISTORY: ORDERING SYSTEM PROVIDED HISTORY: Abdominal wall seroma, subsequent encounter TECHNOLOGIST PROVIDED HISTORY: This procedure can be scheduled via MyChart. Abdominal wall seroma, subsequent encounter S30.1XXD (ICD-10-CM) Specify organ?-> FINDINGS: An anechoic cystic fluid collection is present along the anterior abdominal wall the subcutaneous tissues at the area of interest, which is elongated in configuration, the largest pocket measuring 5.2 x 2.6 x 6.2 cm. A few small nonspecific septations are present along the collection. IMPRESSION: Simple-appearing fluid collection along the anterior abdominal wall at the area of interest, with the largest pocket measuring 5.2 x 2.6 x 6.2 cm. This most likely represents a seroma. Interpreted by: Shaheen Atwood MD Signed by: Shaheen Atwood MD 08/29/24 Final resultNormalMerelmer De Oliveira Abdomen limitedon 30-98-3652Vtrlxm- appearing fluid collection along the anterior abdominal wall at the area of interest, with the largest pocket measuring 5.2 x 2.6 x 6.2 cm. This most likely represents a seroma. [facility] CONSOLIDATEDEXAMINATION: Limited abdominal ultrasound 08/29/2024 10:41 am COMPARISON: None. HISTORY: ORDERING SYSTEM PROVIDED HISTORY: Abdominal wall seroma, subsequent encounter TECHNOLOGIST PROVIDED HISTORY: This procedure can be scheduled via MyChart. Abdominal wall seroma, subsequent encounter S30.1XXD (ICD-10-CM) Specify organ?-> FINDINGS: An anechoic cystic fluid collection is present along the anterior abdominal wall the subcutaneous tissues at the area of interest, which is elongated in configuration, the largest pocket measuring 5.2 x 2.6 x 6.2 cm. A few small nonspecific septations are present along the collection. [facility] Shaheen Holguin MD - 08/29/2024 EXAMINATION: Limited abdominal ultrasound 08/29/2024 10:41 am COMPARISON: None. HISTORY: ORDERING SYSTEM PROVIDED HISTORY: Abdominal wall seroma, subsequent encounter TECHNOLOGIST PROVIDED HISTORY: This procedure can be scheduled via MyChart. Abdominal wall seroma, subsequent encounter S30.1XXD (ICD-10-CM) Specify organ?-> FINDINGS: An anechoic cystic fluid collection is present along the anterior abdominal wall the subcutaneous tissues at the area of interest, which is elongated in configuration, the largest pocket measuring 5.2 x 2.6 x 6.2 cm. A few small nonspecific septations are present along the collection. IMPRESSION: Simple-appearing fluid collection along the anterior abdominal wall at the area of interest, with the largest pocket measuring 5.2 x 2.6 x 6.2 cm. This most likely represents a seroma. [facility] Lumoid [facility] HospitalRadiology Study observation (narrative)[facility] mention Abdomen limitedOrdered By: Shaheen Atwood on [id number] mention Work Phone: HCG,,Ur(POC)on 07-26-2024 HCG,,Ur(POC)NegativeNormalNEGMercy Odessa Memorial Healthcare CenterComment on above: Result Comment: Specimens with hCG levels near the threshold of the test (25 mIU/mL) may give a negative or indeterminate result. In such cases, another test should be performed with a new specimen in 48-72 hours. If early is suspected clinically in this setting, correlation with quantitative serum b-hCG level is suggested.Performed By: #### UHCGP #### [facility] [address] [place] [address] Translator Interpreter: DANNA Saini urine pregnancyon 19-02-3594Apmw HCG ( test) Ql (U)NegativeNEGATIVEBon [facility]tering Health DaytonComment on above: Specimens with hCG levels near the threshold of the test (25 mIU/mL) may give a negative or indeterminate result. In such cases, another test should be performed with a new specimen in 48-72 hours. If early is suspected clinically in this setting, correlation with quantitative serum b-hCG level is suggested. Bon [facility] DaytonSurgical Pathology Reporton [id number] Pathology Report(NOTE) Path Number: [id number] -- Diagnosis -- ABDOMINAL PANNUS, PANNICULECTOMY: -BENIGN SKIN AND SUBCUTIS Rafael Rodriges D.O. Electronically Signed Out 07/27/2024 Clinical Information Pre-Op Diagnosis: SYMPTOMATIC ABDOMINAL PANNICULUS; DIASTASIS OF RECTUS ABDOMINIS Operative Findings: PANNUS Operation Performed: PANNICULECTOMY, ABDOMINOPLASTY, BIOPATCH AROUND TAMY, INCISIONAL WOUND VAC (PREVENA) js Source of Specimen A: PANNUS Gross Description AURORA MENDEZ, PANNUS received in formalin in two containers, are fragments of cali skin with striae and subcutaneous tissue, 3,393 grams and 32 x 30 x 15 cm in aggregate. A tattoo is present on the skin and sectioning reveals no masses. Law Firm Consultant sections submitted in a single cassette. Microscopic Description Microscopic examination performed. Processing Lab: [address] [address] Interpretation Performed at [facility] [address] [place] [address] SURGICAL PATHOLOGY CONSULTATION Patient Name: AURORA MENDEZ [facility] Rec: [id number] [facility] ANATOMIC PATHOLOGY [address] [facility]. [place], [place] [address] NormalOhiohealth Arthur G.H. Bing, Md, Cancer CenterNicotine screen, urineon 30630-UQ-SONRFUIB Urine<50ng/mLBon [facility] HealthAnabasine Urine<5 ng/mLBon [facility] HealthCotinine, Urine<15ng/mLBon [facility] Health Nicotine Urine<15ng/mLBon [facility] HealthComment on above:(NOTE) INTERPRETIVE INFORMATION: Nicotine and Metabolites, Urine, Quantitative Methodology: Quantitative Liquid Chromatography-Tandem Mass Spectrometry Positive cutoff: Nicotine 15 ng/mL Cotinine 15 ng/mL 9-EK-Ikouyerw 50 ng/mL Anabasine 5 ng/mL For medical [...] developed and its performance characteristics determined by [facility]. It has not been cleared or approved by the US Food and Drug Administration. This test was performed in a CLIA certified laboratory and is intended for clinical purposes. Performed By: [facility] [address] [place] [address] Metal Filer: Quincy Richey MD, PhD CLIA Number: [id number] [facility] HealthNicotine, Urineon [place] Cotinine, Ur<50Normal [facility], Md, Cancer CenterComment on above:Performed By: #### ANICTU #### [facility] [address] [place] [address] Translator Interpreter: Debora Calvinbasine, Urine<5NormalMercy [facility]essa [facility] Healthcare Center Comment on above:Performed By: #### ANICTU #### [facility] [address] [place] [address] Translator Interpreter: MARIA GUADALUPE Calvinotinine, Urine<15NormalMercy Odessa Memorial Healthcare Center Comment on above:Performed By: #### ANICTU #### [address] [id number] Translator Interpreter: Saleem Zavala MDNicotine, Urine<15NormalOhiohealth Arthur G.[facility]. [facility], [facility], Cancer Center Comment on above:Result Comment: (NOTE) INTERPRETIVE INFORMATION: Nicotine and Metabolites, Urine, Quantitative Methodology: Quantitative Liquid Chromatography-Tandem Mass Spectrometry Positive cutoff: Nicotine 15 ng/mL Cotinine 15 ng/mL 4-GX-Dfoorcoo 50 ng/mL Anabasine 5 ng/mL For medical [...] developed and its performance characteristics determined by [facility]. It has not been cleared or approved by the US Food and Drug Administration. This test was performed in a CLIA certified laboratory and is intended for clinical purposes. Performed By: [facility] [address] [place] [address] Metal Filer: Quincy Richey MD, PhD CLIA Number: [id number] By: #### ANICTU #### [address] [address] Translator Interpreter: Saleem Zavala MDEKDominga 12 LeadOrdered By: Provider Unknown on 60-33-7890Pgyuzi Bscw86IIQAxh Secours Mercy HealthP Ayky78uspkgwcPsk Secours Mercy HealthP-R Bzceqygt686 msBon Secours Mercy HealthQ-T Zqvljtid443 msBon Secours Mercy HealthQRS Mdqopilk18 msBon Secours Mercy HealthQTc Calculation (zett)454 msBon Secours Mercy HealthR [place]-21degreesBon Secours Mercy HealthT Qnwy67btctybdJct Secours Mercy HealthVentricular Onno36PJENev Secours Mercy HealthBon Secours Mercy HealthEKG 12 Leadon 07-18-2024 Poor data quality, interpretation may be adversely affected Normal sinus rhythm Normal EKG No previous ECGs availableMIMBRES MEMORIAL [facility]PITAL Magdy Cordero MD - 07/18/2024 Poor data quality, interpretation may be adversely affected Normal sinus rhythm Normal EKG No previous ECGs available [facility] Gaudenay HealthBasic Metabolic Panelon 91-56-2183Tbefb gap [Moles/Vol] 14 mmol/L9 - 16 mmol/LBon Secours Mercy HealthCalcium [Mass/Vol]9.1 mg/dL8.6 - 10.4 mg/dLBon Secours Mercy HealthChloride [Moles/Vol]101 mmol/L98 - 107 mmol/L [facility] HealthCO2 [Moles/Vol]26 mmol/L20 - 31 mmol/LBon Secours Mercy HealthCreatinine [Mass/Vol]0.7 mg/dL0.6 - 0.9 mg/dLBon Secours Mercy HealthEst, Glom Filt Rate- PINFBon Secours Mercy HealthComment on above: These results are not intended for use in patients <18 years of age. eGFR results are calculated without a race factor using the 2020 CKD-EPI equation. Careful clinical correlation is recommended, particularly when comparing to results calculated using previous equations. The CKD-EPI equation is less accurate in patients with extremes of muscle mass, extra-renal metabolism of creatine, excessive creatine ingestion, or following therapy that affects renal tubular secretion. Glucose [Mass/Vol]66 mg/dLLow74 - 99 mg/dLBon [facility] DaytonInterpretation and review of laboratory resultsAbnormalWellmont Health SystemPotassium [Moles/Vol]3.5 mmol/LLow3.7 - 5.3 mmol/LBon [facility] DaytonSodium [Moles/Vol]141 mmol/L136 - 145 mmol/LBon [facility] DaytonUrea nitrogen [Mass/Vol]10 mg/dL6 - 20 mg/dLBon [facility] Basic Metabolic Profon 84-04-3074Wykcf gap [Moles/Vol]14 mmol/LNormal9-16Ohiohealth Arthur G.H. Bing, Md, Cancer CenterComment on above:Performed By: #### GLYHGB CBC, BMP #### [facility] [address] [place] [address] Translator Interpreter: MARIA GUADALUPE Powersalcium [Mass/Vol]9.1 mg/dLNormal8.6-10.4[facility] on above:Performed By: #### JOSHUAHGB CBC, BMP #### [facility] [address] [place] [address] Translator Interpreter: MARIA GUADALUPE Powershloride [Moles/Vol]101 mmol/DThgyam94-617HyjlqOhiohealth Arthur G.H. Bing, Md, Cancer CenterComharper university hospital on above:Performed By: #### GLYHGB CBC, BMP #### [facility] [address] [place], [place] [id number] Translator Interpreter: Cachorro Abdul MDCO2 [Moles/Vol]26 mmol/JXlklro36-24HnzaaThe Christ Hospital on above:Performed By: #### JOSHUAHGB, CBC, BMP #### [facility] [address] [place] [address] Translator Interpreter: MARIA GUADALUPE Powersreatinine [Mass/Vol]0.7 mg/dLNormal0.6-0.9[facility] on above:Performed By: #### GLYHGB CBC, BMP #### [facility] [address] [place] [address] Translator Interpreter: Cachorro Abdul MDGFR/1.73 sq M.predicted among non-blacks MDRD (S/P/Bld) [Vol rate/Area]mL/min/{1.73_m2}Normal>60[facility] on above:Result Comment: These results are not intended for use in patients <18 years of age. eGFR results are calculated without a race factor using the 2020 CKD-EPI equation. Careful clinical correlation is recommended, particularly when comparing to results calculated using previous equations. The CKD-EPI equation is less accurate in patients with extremes of muscle mass, extra-renal metabolism of creatine, excessive creatine ingestion, or following therapy that affects renal tubular secretion.Performed By: #### TODDB CBC, BMP #### [facility] [address] [place] [address] Translator Interpreter: Cachorro Abdul MDGlucose [Mass/Vol]66 mg/mKOlm53-58CuzgdAshtabula County Medical Center on above:Performed By: #### JOSHUAHGB CBC, BMP #### [facility] [address] [place] [address] Translator Interpreter: JORGE Powersotassium [Moles/Vol]3.5 mmol/LLow3.7-5.3MAshtabula County Medical Center on above:Performed By: #### GLYHGB CBC, BMP #### [facility] [address] [place] [address] Translator Interpreter: GUNNER Powersodium [Moles/Vol]141 mmol/GIoucfa297-497IggavThe Christ Hospital on above:Performed By: #### GLYHGB CBC, BMP #### [facility] [address] [place] [address] Translator Interpreter: Cachorro Abdul MDUrea nitrogen [Mass/Vol]10 mg/dLNormal6-20[facility]. [facility], Md, Cancer CenterComment on above:Performed By: #### JOSHUAHGB CBC, BMP #### [facility] [address] [place], [place] [id number] Translator Interpreter: Cachorro Abdul [facility] WEST CAMPUSon 10-82-9121Xnmsejsecdj distribution width (RBC) [Ratio]12.9 %11.8 - 14.4 %[facility]mont Health SystemHematocrit (Bld) [Volume fraction]45.5 %36.3 - 47.1 %Bon [facility] DaytonHemoglobin (Bld) [Mass/Vol] 14.8 g/dL11.9 - 15.1 g/dLBon [facility] Regional Medical CenterH (RBC) [Entitic mass]30.8 pg 25.2 - 33.5 pgBon [facility] Medical CenterHC (RBC) [Mass/Vol]32.5 g/dL28.4 - 34.8 g/dLBon SecOhioHealth Arthur G.H. Bing, MD, Cancer CenterV (RBC) [Entitic vol]94.8 fL82.6 - 102.9 fLBon [facility] DaytonNucleated RBC/100 WBC (Bld) [Ratio]0.0 %0.0 per 100 WBCBon [facility]tering Health DaytonPlatelet mean volume (Bld) [Entitic vol]11.0 fL8.1 - 13.5 fL Bon [facility] DaytonPlatelets (Bld) [#/Vol]218 10*3/uLBon [facility] Health DaytonRBC (Bld) [#/Vol]4.80 10*6/uL3.95 - 5.11 m/uLBon [facility] Health DaytonWBC other (Bld) [#/Vol]6.0Bon [facility] Erythrocyte distribution width (RBC) [Ratio]12.9 %Aqswry70.8-14.4Ohio[facility]. Bing, Md, Cancer CenterComment on above:Performed By: #### GLYHGB, CBC, BMP #### [facility] [address] [place], [place] [id number] Translator Interpreter: Cachorro Abdul MDHematocrit (Bld) [Volume fraction]45.5 %Normal 36.3-47.1[facility] on above:Performed By: #### GLYHGB, CBC, BMP #### [address] [address] Translator Interpreter: Cachorro Abdul MDHemoglobin (Bld) [Mass/Vol]14.8 g/dLNormal 11.9-15.1MSt. Joseph Medical CenterComharper university hospital on above:Performed By: #### GLYHGB, CBC, BMP #### [address] [address] Translator Interpreter: MARTHA PowersCH (RBC) [Entitic mass]30.8 dzPzyxds08.2-33.5 [facility], Cancer CenterComharper university hospital on above:Performed By: #### GLYHGB, CBC, BMP #### [address] [address] Translator Interpreter: MARTHA PowersCHC (RBC) [Mass/Vol]32.5 g/pKXzyefv21.4-34.8 [facility] on above:Performed By: #### GLYHGB, CBC, BMP #### [address] [address] Translator Interpreter: MARTHA PowersCV (RBC) [Entitic vol]94.8 oPQkilww02.6-102.9 [facility] on above:Performed By: #### GLYHGB, CBC, BMP #### [address] [address] Translator Interpreter: Cachorro Abdul MDNRBC Automated0.0 per 100 WBCNormal0.0[facility] on above:Performed By: #### GLYHGB, CBC, BMP #### [address] [address] Translator Interpreter: Dayan Powers mean volume (Bld) [Entitic vol]11.0 fL Normal8.1-13.5[facility] on above:Performed By: #### TODDB, CBC, BMP #### [facility] [place] [address] Translator Interpreter: Glenda Powerstealonso (Bld) [#/Vol]218 10*3/gLLupdkr900-480 [facility], Cancer CenterComharper university hospital on above:Performed By: #### JOSHUAHGB, CBC, BMP #### [facility] [address] [place] [address] Translator Interpreter: JULIA PowersBC (Bld) [#/Vol]4.80 10*6/uLNormal3.95-5.11 [facility] on above:Performed By: #### CARMELA CBC, BMP #### [facility] [address] [place] [address] Translator Interpreter: Cachorro Abdul MDWBC (Bld) [#/Vol]6.0 10*3/uLNormal3.5-11.3MAshtabula County Medical Center on above:Performed By: #### GLYHGB, CBC, BMP #### [facility] [address] [place] [address] Translator Interpreter: Cachorro Abdul MDHemoglobin A1Con 27-46-0169Faoscgc glucose Estimated from glycated hemoglobin (Bld) [Mass/Vol]91 mg/dLBon [facility] DaytonComharper university hospital on above:The ADA and AACC recommend providing the estimated average glucose result to permit better patient understanding of their HBA1c result. HbA1c (Bld) [Mass fraction]4.8 %4.0 - 6.0 %Bon [facility] DaytonBon [facility] Health DaytonGlucose [Mass/Vol]91 mg/dLNormalThe [facility] Hospital on above:Result Comment: The ADA and AACC recommend providing the estimated average glucose result to permit better patient understanding of their HBA1c result.Performed By: #### GLYHGB, CBC, BMP #### [facility] [address] [place], [place] [id number] Translator Interpreter: Cachorro Abdul MDHbA1c (Bld) [Mass fraction]4.8 %Normal4.0-6.0 [facility], Md, Cancer CenterComment on above:Performed By: #### GLYHGB, CBC, BMP #### [facility] [address] [place], [place] [address] Translator Interpreter: FER PowersP,APTIMA HPV,AGE GDLNon 08-62-4357JOH GDLN ACOG TESTINGNote.NOMS HealthcareComment on above:TESTS RESULT FLAG UNITS REF RANGE LAB Clinician Provided Cytology Information Source.............Cervix;Endocervix No. of containers..01 ThinPrep Vial Age Algo ACOG Cammy... FLAG LEGEND: L-Low Normal,H-High Normal,LL-Alert Low,HH-Alert High <-Panic Low,>-Panic High,A-Abnormal,AA-Critical Abnormal Performed at: [address] [facility] [address] Tracey Sellers MD, HPV APTIMANegativeNegativeNOMS HealthcareComment on above:This nucleic acid amplification test detects fourteen high- risk HPV types (16,18,31,33,35,39,45,51,52,56,58,59,66,68) without differentiation. Performed at: =[address] [id number] Translator Interpreter: Tracey Sellers MD, Phone: [phone] Performed at: [address] [id number] Translator Interpreter: Tracey Sellers MD, Phone: [phone] IGP, APTIMA HPV, RFX 16/18,45Note.[facility] Medical CenterComharper university hospital on above:TESTS RESULT FLAG UNITS REF RANGE LAB DIAGNOSIS: 02 NEGATIVE FOR INTRAEPITHELIAL LESION OR MALIGNANCY. Specimen adequacy: 02 Satisfactory for evaluation. Endocervical and/or squamous metaplastic cells (endocervical component) are present. Performed by: 02 Santiago Lewis, Wild Life Photographer ([facility]) . 02 Note: Note 02 The Pap smear is a screening test designed to aid in the detection of premalignant and malignant conditions of the uterine cervix. It is not a diagnostic procedure and should not be used as the sole means of detecting cervical cancer. Both false-positive and false-negative reports do occur. Test Methodology: Note 02 This liquid based ThinPrep(R) pap test was screened with the use of an image guided system. HPV Genotype Reflex Note 02 Criteria not met, HPV Genotype not performed. FLAG LEGEND: L-Low Normal,H-High Normal,LL-Alert Low,HH-Alert High <-Panic Low,>-Panic High,A-Abnormal,AA-Critical Abnormal Performed at: [address] [facility] [address] Tracey Sellers MD, BRUSH-SPATULA CERVIX ENDOCERVIX CLINISYNCNOMS HealthcareNicotine, Urineon [place] Cotinine, Ur<50Normal [facility] HospitalComment on above:Performed By: #### ANICTU #### [facility] [address], [place] [id number] Translator Interpreter: Debora Calvinbasine, Urine<5NormalMercy West Hills HospitalComment on above:Performed By: #### ANICTU #### [facility] [address] [place] [address] Translator Interpreter: MARIA GUADALUPE Calvinotinine, Urine<15NormalMercy West Hills HospitalComment on above:Performed By: #### ANICTU #### [facility] [address] [place] [address] Translator Interpreter: Saleem Zavala MDNicotine, Urine<15NormalMercy West Hills HospitalComment on above:Result Comment: (NOTE) INTERPRETIVE INFORMATION: Nicotine and Metabolites, Urine, Quantitative Methodology: Quantitative Liquid Chromatography-Tandem Mass Spectrometry Positive cutoff: Nicotine 15 ng/mL Cotinine 15 ng/mL 4-LU-Hcwzufvt 50 ng/mL Anabasine 5 ng/mL For medical [...] developed and its performance characteristics determined by [employer]. It has not been cleared or approved by the US Food and Drug Administration. This test was performed in a CLIA certified laboratory and is intended for clinical purposes. Performed By: [facility] [address] [place] [address] Metal Filer: Quincy Richey MD, PhD CLIA Number: [id number] By: #### ANICTU #### [facility] [address] [place] [address] Translator Interpreter: Saleem Zavala MDVitamin B6on 11-34-5154Rkwqqen B-610[facility] Comment on above: ADDITIONAL INFORMATION This test was developed and its performance characteristics determined by [facility] in a manner consistent with CLIA requirements. This test has not been cleared or approved by the U.S. Food and Drug Administration. Test Performed by: [facility] [address] [place] [address] Translator Interpreter: Sunday Ramos M.D. Ph.D.; CLIA# [id number] OhioHealthLipoprotein NMRon 72-12-7213Vclrlymrcsz [Mass/Vol]158 mg/dL100 - 199 mg/dLOhioHealthComment on above:This test was developed and its performance characteristics determined by [employer]. It has not been cleared or approved by the Food and Drug Administration. Cholesterol in HDL [Mass/Vol]56 mg/dL39 - PINF mg/dLOhioHealthComment on above: This test was developed and its performance characteristics determined by [facility]. It has not been cleared or approved by the Food and Drug Administration. Cholesterol in LDL [Mass/Vol]92 mg/dL0 - 99 mg/dLOhioHealthComment on above:. Optimal < 100 Above optimal 100 - 129 Borderline 130 - 159 High 160 - 189 Very high > 189 . HDL SIZE10.0 nm9.2 - PINF nmOhioHealthComment on above:This test was developed and its performance characteristics determined by [facility]. It has not been cleared or approved by the Food and Drug Administration. HDL-P TOTAL29.7 umol/LLow30.5 - PINF umol/LOhioHealthComment on above:This test was developed and its performance characteristics determined by [facility]. It has not been cleared or approved by the Food and Drug Administration. Interpretation and review of laboratory resultsAbnormalOhioHealthLARGE HDL-P8.3 umol/L4.8 - PINF umol/LOhioHealthComment on above:This test was developed and its performance characteristics determined by [facility]. It has not been cleared or approved by the Food and Drug Administration. LARGE VLDL-P<0.8NINF - 2.7 nmol/LOhioHealthComment on above:This test was developed and its performance characteristics determined by [facility]. It has not been cleared or approved by the Food and Drug Administration. LDL-P757 nmol/LNINF - 1000 nmol/LOhioHealthComment on above:This test was developed and its performance characteristics determined by [facility]. It has not been cleared or approved by the Food and Drug Administration. Low < 1000 Moderate 1000 - 1299 Borderline-High 1300 - 1599 High 1600 - 2000 Very High > 2000 LP-IR SCORE<25NINF - 45OhioHealthComment on above:This test was developed and its performance characteristics determined by [facility]. [...] a physician's clinical assessment. Test Performed by: [facility] [address] [address] Triglyceride [Mass/Vol]46 mg/dL0 - 149 mg/dLOhioHealthComment on above:This test was developed and its performance characteristics determined by [employer]. It has not been cleared or approved by the Food and Drug Administration. VLDL SIZE45.0 nmNINF - 46.6 nmOhioHealthComment on above:This test was developed and its performance characteristics determined by [employer]. It has not been cleared or approved by the Food and Drug Administration. [facility] Panel Informationon 19-95-2421WQT SIZE21.4 nm20.8 - PINF nm OhioMercy Healthment on above:This test was developed and its performance characteristics determined by [employer]. It has not been cleared or approved [...] is taken into account. This test was developed and its performance characteristics determined by [employer]. It has not been cleared or approved by the Food and Drug Administration. SMALL LDL-P158 nmol/LNINF - 527 nmol/LOhioHealthComment on above:This test was developed and its performance characteristics determined by [employer]. It has not been cleared or approved by the Food and Drug Administration. Comprehensive metabolic 2000 panelOrdered By: Roxie Lopez on 84-48-6261Tyqwfcy [Mass/Vol]4.6 g/dL3.2 - 5.2 g/dLOhioHealthALP [Catalytic activity/Vol]67 U/L40 - 140 U/LOhioHealthALT [Catalytic activity/Vol]29 U/L0-35 U/LOhioHealthAnion gap [Moles/Vol]16 mmol/L10 - 20 mmol/LOhioHealthAST [Catalytic activity/Vol]28 U/L0- 35 U/LOhioHealthBilirubin [Mass/Vol]0.6 mg/dL0.0 - 1.3 mg/dLOhioHealthCalcium [Mass/Vol]9.3 mg/dL8.4 - 10.2 mg/dLOhioHealthChloride [Moles/Vol]102 mmol/L98 - 108 mmol/LOhioHealthCreatinine [Mass/Vol]0.57 mg/dL0.40 - 1.10 mg/dLOhioHealth GFR/1.73 sq M.predicted CKD-EPI (S/P/Bld) [Vol rate/Area]121- PINFOhioHealth Comment on above:Estimated GFR was calculated using the 2020 CKD-EPI creatinine equation.Glucose [Mass/Vol]64 mg/dLLow65 - 99 mg/dLOhioHealthHCO3 [Moles/Vol]26 mmol/L21 - 32 mmol/LOhioHealthInterpretation and review of laboratory results AbnormalOhioHealthPotassium [Moles/Vol]3.7 mmol/L3.5 - 5.1 mmol/LOhioHealth Comment on above:Slightly HemolyzedProtein [Mass/Vol]7.1 g/dL6.0 - 8.0 g/dL OhioHealthSodium [Moles/Vol]140 mmol/L135 - 145 mmol/LOhioHealthUrea nitrogen [Mass/Vol]12 mg/dL8 - 25 mg/dLOhioHealthUrea nitrogen/Creatinine [Mass ratio] 21.1 mg/xrVvkn19.0 - 20.0OhioProMedica Flower HospitalioHealth [facility] has implemented the eGFR calculation approach that does not have a coefficient for race that conforms to the NKF-ASN Task Force Recommendations.[facility] HospitalHealthFerritinon 73-76-2520Atiehjxa [Mass/Vol]151 ng/oWCett31 - 150 ng/mL TennesseeHealthFerritin [Mass/Vol]on 49-10-7590Zhxtrfpvinroht and review of laboratory resultsAbnormalOhioHealthFolateon 97-14-3638Kmhxgn [Mass/Vol]16.4 ng/mL3.1 - 17.5 ng/mLOhioHealthComment on above:Deficient <2.2 Borderline 2.2 - 3.0 Excessive >17.5 Free T4 [Mass/Vol]on 62-95-7699Uxucnbzpocdcgc and review of laboratory results NormalOhioHealthIron and Iron binding capacity panelon 75-77-7575Mfhe [Mass/Vol] 77 ug/dLOhioHealthIron binding capacity [Mass/Vol]236OhioHealthIron saturation [Mass fraction]33 %20 - 50 %[facility] HospitalNo Panel Informationon 07-13-2023 Interpretation and review of laboratory resultsNormalOhioHealthOhioHealth ZilvXtwhruD6oj 77-67-7000L6 [Mass/Vol]119 ng/dL72 - 170 ng/dLOhioHealthT3 [Mass/Vol]on 02-65-0367Nbwstckvdqnchl and review of laboratory resultsNormal [facility] HospitalioHealthT4, Freeon 32-95-8921Mlxf T4 [Mass/Vol]1.4 ng/dL0.7 - 1.7 ng/dLOhioHealthTS DL <= 0.005 mIU/L Qnon 01-23-7302Sxxxtwkhripedi and review of laboratory resultsAbnormalOhioHealthTSH Qn5.63 m[IU]/LHighOhioHealthVitamin B12 on 89-02-9520Ytvmjyswo (Vitamin B12) [Mass/Vol]330 pg/mL232 - 1245 pg/mL OhioTrumbull Memorial HospitalVitamin D, Total, 25-OHon 14-15-026572288478-jehvyikxrvyxcs D [Mass/Vol]22 ng/mLLow30 - 100 ng/mLOhioHealthComment on above:Vitamin D status: Deficiency: <10 ng/mL Insufficiency: 10-30 ng/mL Sufficiency: 30-100 ng/mL Toxicity: >100 ng/mL Interpretation and review of laboratory resultsAbnormalOhioHealthAssay performed using VoyageByMeIA methodology.Galion HospitalOhioHealthUS PELVIS AND TRANSVAGon 37-62-6678GR PELVIS AND TRANSVAGEXAM: Pelvic ultrasound HISTORY: . Excessive and frequent [...] authenticated by: MARIA GUADALUPE LYNN Date: 2022-01-29 07:39[facility] ACOG PANEL 2: 30 to 65on 01-18-2022..NormalThe [facility] HospitalComment on above:Result Comment: Performed at: WBPerformed By: #### [id number] #### [facility] [address] [place] [address] Dr. Freeman SimsAge Gdln ACOG Iixwijg20-12LllotgOnmGeorgetown Behavioral HospitalComharper university hospital on above:Performed By: #### [id number] #### [facility] [address] [place] [address] Dr. Freeman SimsDIAGNOSIS:CommentTriHealth Good Samaritan Hospital on above: Result Comment: NEGATIVE FOR INTRAEPITHELIAL LESION OR MALIGNANCY. PREDOMINANCE OF COCCOBACILLI CONSISTENT WITH SHIFT IN VAGINAL AARON IS PRESENT. Performed at: WBPerformed By: #### [id number] #### [facility] [address] [place] [address] Dr. Freeman SimsHPV AptimaNegativeNormalNegativeUC Health on above:Result Comment: This nucleic acid amplification test detects fourteen high-risk HPV types (16,18,31,33,35,39,45,51,52,56,58,59,66,68) without differentiation. Performed at: =GPerformed By: #### [id number] #### [facility] [address] [place] [address] Dr. Freeman SimsMethodology:CommentTriHealth Good Samaritan Hospital on above: Result Comment: This liquid based ThinPrep(R) pap test was screened with the use of an image guided system. Performed at: WBPerformed By: #### [id number] #### [facility] [address] [place] [address] Dr. Freeman SimsNote:CommentTriHealth Good Samaritan Hospital on above:Result Comment: The Pap smear is a screening test designed to aid in the detection of premalignant and malignant conditions of the uterine cervix. It is not a diagnostic procedure and should not be used as the sole means of detecting cervical cancer. Both false-positive and false-negative reports do occur. . Performed at: WBPerformed By: #### [id number] #### [facility] [address] [place] [address] Dr. Freeman SimsPerformed by:CommentTriHealth Good Samaritan Hospital on above: Result Comment: Lisa Leal, Wild Life Photographer (ASCP) Performed at: WBPerformed By: #### [id number] #### [facility] [address] [address] [address] Freeman SimsSpecimen adequacy:CommentTriHealth Good Samaritan Hospital on above:Result Comment: Satisfactory for evaluation. Endocervical and/or squamous metaplastic cells (endocervical component) are present. Performed at: WBPerformed By: #### [id number] #### [facility] [address] [address] [address] Freeman SimsXR CHEST AP/PA AND LATon 82-98-1052JK CHEST AP/PA AND LAT EXAMINATION: XR CHEST [...] [id number] Dictated by: MARIA GUADALUPE LYNN on Sat Jun 27, 2021 9:57:46 AM EST Transcribed by: AMRIA GUADALUPE LYNN on Sat Jun 27, 2021 9:57:46 AM EST Finalized by: MARIA GUADALUPE LYNN on Sat Jun 27, 2021 9:57:46 AM ESTSt[facility] on above:Order Comment: Injury/Trauma or Illness?:Illness/Other How long have you had these symptoms (acute/chronic)?:Acute Reason for exam?:cough and sob x 2 months History of cancer?:unknown Surgeries, chemotherapy, or radiation?:unknown Type of Exam?:Initial Additional signs and symptoms?:hx hodgkin's diseaseXR CHEST AP/PA AND LATon 82-72-4730GY CHEST AP/PA AND LATEXAMINATION: XR CHEST AP/PA AND LAT HISTORY: dyspnea Injury/Trauma or Illness?:Illness/Other How long have you had [...] ID: [id number] Dictated by: ELMA MOON on Rust Apr 25, 2021 7:31:01 PM EDT Transcribed by: ELMA MOON on Rust Apr 25, 2021 7:31:01 PM EDT Finalized by: ELMA MOON on Rust Apr 25, 2021 7:31:01 PM [facility] on above:Order Comment: Injury/Trauma or Illness?:Illness/Other How long have you had these symptoms (acute/chronic)?:Acute Reason for exam?:DYSPNEA, HX OF ASTHMA History of cancer?:unknown Surgeries, chemotherapy, or radiation?:unknown Type of Exam?:Initial Additional signs and symptoms?:NXR KNEES BILATERAL WB OA 3 VIEWSon 47-74-5395XY KNEES BILATERAL WB OA 3 VIEWSEXAMINATION: XR KNEES BILATERAL WB OA 3 VIEWS [...] PIERCE on TueApr 27, 2021 3:39:16 PM [facility] on above:Order Comment: Injury/Trauma or Illness?:Illness/Other How long have you had these symptoms (acute/chronic)?:Unknown Reason for exam?:BILAT KNEE PAIN, RT> LT History of cancer?:unknown Surgeries, chemotherapy, or radiation?:unknown Type of Exam?:Initial Additional signs and symptoms?:NXR LUMBAR SPINE 2-3 VIEWS (STANDARD)on 69-21-7627QU LUMBAR SPINE 2-3 VIEWS (STANDARD)EXAMINATION: LUMBAR SPINE 3 VIEWS COMPARISON: None. HISTORY: [...] lumbar apophyseal joints. 2. Otherwise unremarkable study. DEEP/zach Workstation ID: [id number] Dictated by: MARIA GUADALUPE TONG on TueApr 27, 2021 4:41:51 PM EDT Transcribed by: DANIAL POP on TueApr 27, 2021 5:09:39 PM EDT Finalized by: MARIA GUADALUPE TONG on TueApr 27, 2021 5:55:24 PM EDTNoOur Lady of Mercy Hospital - AndersonComment on above:Order Comment: Injury/Trauma or Illness?:Illness/Other How long have you had these symptoms (acute/chronic)?:Unknown Reason for exam?:LOWER BACK PAIN History of cancer?:unknown Surgeries, chemotherapy, or radiation?:unknown Type of Exam?:Initial Additional signs and symptoms?:NUS ABDOMEN LIMITED STUDYon 39-04-5264CY ABDOMEN LIMITED STUDYEXAMINATION: US ABDOMEN LIMITED STUDY HISTORY: ORDERING SYSTEM [...] at the level of the angely hepatis. Geography Instructor reports a negative sonographic Santos's sign. The [...] MACK on TueApr 23, 2021 7:31:03 PM EDTNoKindred Hospital DaytonComment on above:Order Comment: Injury/Trauma or Illness?:Illness/Other How long have you had these symptoms (acute/chronic)?:Acute Reason for exam?:elevated lfts History of cancer?:unknown Surgeries, chemotherapy, or radiation?:unknown Type of Exam?:Initial Additional signs and symptoms?:noneXR TIBIA FIBULA RIGHT 2 VIEWSon 81-34-1575WH TIBIA FIBULA RIGHT 2 VIEWSEXAMINATION: XR TIBIA FIBULA RIGHT 2 VIEWS 03/19/2021 [...] LY on TueMar 19, 2021 1:08:55 AM TMercy Health Urbana HospitalComment on above:Order Comment: Injury/Trauma or Illness?:Illness/Other How long have you had these symptoms (acute/chronic)?:Acute Reason for exam?:pain/swelling/warm History of cancer?:no Surgeries, chemotherapy, or radiation?:no Type of Exam?:Initial Additional signs and symptoms?:states was just walking AND felt a pop Comprehensive Metabolic Panelon 70-41-1281Pfydkhs [Mass/Vol]3.4 g/dL3.2 - 5.2 g/dLOhioHealthALP [Catalytic activity/Vol]107 U/L40 - 140 U/LOhioHealthALT [Catalytic activity/Vol]117 U/LHigh14 - 65 U/LOhioHealthAnion gap [Moles/Vol]10 mmol/L10 - 20 mmol/LOhioHealthAST [Catalytic activity/Vol]91 U/LHigh0 - 45 U/L OhioHealthBilirubin [Mass/Vol]0.3 mg/dL0.0 - 1.3 mg/dLOhioHealthCalcium [Mass/Vol]8.6 mg/dL8.4 - 10.2 mg/dLOhioHealthChloride [Moles/Vol]106 mmol/L98 - 108 mmol/LOhioHealthCreatinine [Mass/Vol]0.75 mg/dL0.40 - 1.10OhioHealthGFR/1.73 sq M predicted among non-blacks MDRD (S/P/Bld) [Vol rate/Area]The eGFR should be used for monitoring renal function only and not for medication dosing. OhioHealthGFR/1.73 sq M.predicted CKD-EPI (S/P/Bld) [Vol rate/Area]105>=60 mL/min/1.73 h8FprqXykqrfBvtgugx [Mass/Vol]87 mg/dL65 - 99 mg/dLOhioHealthHCO3 [Moles/Vol]25 mmol/L21 - 32 mmol/LOhioHealthPotassium [Moles/Vol]4.1 mmol/L3.5 - 5.1 mmol/LOhioHealthProtein [Mass/Vol]7.2 g/dL6.0 - 8.0 g/dLOhioHealthSodium [Moles/Vol]137 mmol/L135 - 145 mmol/LOhioHealthUrea nitrogen [Mass/Vol]16 mg/dL8 - 25 mg/dLOhioHealthUrea nitrogen/Creatinine [Mass ratio]21.3 mg/mgHigh Galion HospitalLipid Sage Memorial Hospitalon 86-59-7710Kcbdjesgvzd [Mass/Vol]161 mg/dL100 - 199 mg/dL OhioHealthComment on above:National Cholesterol Education Program Guidelines: Cholesterol Desirable: <200 mg/dL Borderline High: 200-239 mg/dL High: greater than or equal to 240 mg/dL Cholesterol in HDL [Mass/Vol]67 mg/dL40 - 59OhioHealthComment on above:National Cholesterol Education Program Guidelines: HDL Cholesterol Low: <40 mg/dL Near Optimal: 40-59 mg/dL High: greater than or equal to 60 mg/dL Cholesterol in LDL [Mass/Vol]86 mg/dL10 - 130 mg/dLOhioHealthComment on above: National Cholesterol Education Program Guidelines: LDL Cholesterol Optimal: <100 mg/dL Near Optimal/above Optimal: 100-129 mg/dL Borderline High: 130-159 mg/dL High: 160-189 mg/dL Very High: greater than or equal to 190 mg/dL Cholesterol non HDL [Mass/Vol]94 mg/dLOhioHealthComment on above:National Cholesterol Education Program Guidelines: NON HDL Cholesterol Desirable: <130 mg/dL Borderline High: 130-159 mg/dL High: 160-189 mg/dL Very High: > or = 190 mg/dL Cholesterol.total/Cholesterol in HDL [Mass ratio]2.4 {ratio}ratioOhioHealth Comment on above:Female Cholesterol/HDL Ratio: Average risk: 4.4 1/2 average risk: 3.3 2 x average risk: 7.1 Triglyceride [Mass/Vol]40 mg/dL30 - 150 mg/dLOhioHealthComment on above:National Cholesterol Education Program Guidelines: Triglyceride Normal: <150 mg/dL Borderline High: 150-199 mg/dL High: 200-499 mg/dL Very High: greater than or equal to 500 mg/dL Otheron 16-79-5939Ahoxjtuugqcujg and review of laboratory resultsAbnormal Galion HospitalT, Freeon 78-23-6548Lqdm T4 [Mass/Vol]0.7 ng/dL0.7 - 1.7 ng/dL OhioHealthInterpretation and review of laboratory resultsNormalOhioHealthTSHon 12-91-3278GES Qn9.61 m[IU]/LHCincinnati Shriners Hospital Urinalysis Dipstick, Autoon 11-06-2716Jopcducbw Ql (U)LargeAbnormalNegativeOhioHealthGlucose Ql (U)100 AbnormalNormal, Negative mg/dLOhioHealthHemoglobin Ql (U)LargeAbnormalNegative OhioHealthInterpretation and review of laboratory resultsAbnormalOhioHealth Ketones Ql (U)40AbnormalNegative mg/dLOhioHealthLeukocyte esterase Test strip Ql (U)LargeAbnormalNegativeOhioHealthNitrite Ql (U)PositiveAbnormalNegative OhioHealthpH (U)6.0 [pH]OhioHealthProtein Ql (U)300AbnormalNegative mg/dL Galion HospitalSpecific gravity (U) [Rel density]1.015OhioHealthUrobilinogen Qn (U) 4.0 mg/dLAbnormal<2.0, 0.2, Normal, Negative, 1.0, 2.0, <1.0NyioTrumbull Memorial Hospital Comprehensive Metabolic Panelon 91-05-0411Sxukgjz [Mass/Vol]3.3 g/dL3.2 - 5.2 g/dLOhioHealthALP [Catalytic activity/Vol]91 U/L40 - 140 U/LOhioHealthALT [Catalytic activity/Vol]26 U/L14 - 65 U/LOhioHealthAnion gap [Moles/Vol]10 mmol/L10 - 20 mmol/LOhioHealthAST [Catalytic activity/Vol]14 U/L0 - 45 U/L OhioHealthBilirubin [Mass/Vol]0.4 mg/dL0 - 1.3 mg/dLOhioHealthCalcium [Mass/Vol] 8.4 mg/dL8.4 - 10.2 mg/dLOhioHealthChloride [Moles/Vol]108 mmol/L98 - 108 mmol/L OhioHealthCreatinine [Mass/Vol]0.68 mg/dL0.40 - 1.10OhioHealthGFR/1.73 sq M predicted among non-blacks MDRD (S/P/Bld) [Vol rate/Area]The eGFR should be used for monitoring renal function only and not for medication dosing.[facility] GFR/1.73 sq M.predicted CKD-EPI (S/P/Bld) [Vol rate/Area]116>=60 mL/min/1.73 m2 Galion HospitalGlucose [Mass/Vol]88 mg/dL65 - 99 mg/dLOhioHealthHCO3 [Moles/Vol]25 mmol/L21 - 32 mmol/LOhioHealthInterpretation and review of laboratory results AbnormalOhioHealthPotassium [Moles/Vol]3.7 mmol/L3.5 - 5.1 mmol/LOhioHealth Protein [Mass/Vol]6.8 g/dL6 - 8 g/dLOhioHealthSodium [Moles/Vol]139 mmol/L135 - 145 mmol/LOhioHealthUrea nitrogen [Mass/Vol]14 mg/dL8 - 25 mg/dLOhioHealthUrea nitrogen/Creatinine [Mass ratio]20.6 mg/mgHighOhioHealthInsulin, Totalon 59-77-7410Sphsnsl Qn16.7 u[IU]/mLOhioHealthInterpretation and review of laboratory resultsNormalOhioHealthTSH with Reflex Free T4on 02-08-2020 Interpretation and review of laboratory resultsNormalOnjoHealthTSH Qn2.60 m[IU]/LOhioHealthOtheron 04-26-1191Mp mammographic or sonographic evidence of malignancy. BIRADS: BIRADS - CATEGORY 2 Benign, no evidence of malignancy. Normal interval follow-up is recommended in 12 months. OVERALL ASSESSMENT - BENIGN A letter of notification will be sent to the patient regarding the results. [facility], along withthe National Comprehensive Cancer Network, the [employer], and [facility], recommend annual screening mammograms for women age 40 and older. Workstation ID: [id number] Galion HospitalEXAMINATION: MM DIAGNOSTIC STEVE BILATERAL; US BREAST RIGHT LIMITED INDICATION: ORDERING SYSTEM PROVIDED HISTORY: right sided lyphadenopathy, TECHNOLOGIST PROVIDED HISTORY: ORDERING SYSTEM PROVIDED DIAGNOSIS CODES: R59.1 Lymphadenopathy COMPARISON: 2018 TECHNIQUE: Standard mammographic views with rig ht exaggerated CC and true lateral view, 2D [...] suspicious mass or architectural distortion. No axillary lymphadenopathy.Galion HospitalInterface, Rad In Catherine Speechq - 08/31/2019 2:46 PM EST EXAMINATION: [...] of concern demonstrates normal fibroglandular tissue. No suspiciousmass or architectural distortion. No axillary lymphadenopathy. IMPRESSION: No mammographic or sonographic evidence of malignancy. BIRADS: BIRADS - CATEGORY 2 Benign, no evidence of malignancy. Normal interval follow-up is recommended in 12 months. OVERALL ASSESSMENT - BENIGN A letter of notification will be sent to the patient regarding the results. [facility], along with the National Comprehensive Cancer Network, the [employer], and [facility], recommend annual screening mammograms for women age 40 and older. Workstation ID: [id number] COMPARISON IMPORTon 24-41-9859Gibh order has been auto-finalized and does not contain a result.Galion HospitalUS COMPARISON IMPORT on 88-00-1908Exva order has been auto-finalized and does not contain a result. Galion HospitalT4, Freeon 76-49-6739Rgpo T4 [Mass/Vol]0.8 ng/dL0.7 - 1.7 ng/dL [facility] HospitalInterpretation and review of laboratory resultsNormalOhioHealthTSHon 95-24-7787Fyhwakwnwgbtvf and review of laboratory resultsAbnormalOhiDCealKettering Health Qn17.40 m[IU]/LHighOhioHealthXR WRIST LEFT 3+ VIEWS (STANDARD)on 48-90-5693JK WRIST LEFT 3+ VIEWS (STANDARD)EXAMINATION: XR WRIST LEFT 3+ VIEWS (STANDARD) HISTORY: pain and swelling left wrist. no know injury. getting worse COMPARISON: Left hand 01/07/2018 FINDINGS: Frontal, oblique, lateral views of the left wrist. There is no acute fracture or dislocation. The joint spaces appear preserved. The soft tissues are unremarkable. IMPRESSION: Unremarkable left wrist radiographs. [employer] Workstation ID: [id number] Dictated by: TIM FAJARDO on TueJan 17, 2019 3:20:42 PM EDT Transcribed by: MONICA BENNETT on TueJan 17, 2019 4:04:25 PM EDT Finalized by: TIM FAJARDO on TueJan 17, 2019 4:05:37 PM EDTDayton Osteopathic Hospital Urgent CareComment on above:Order Comment: Reason for exam?:pain Injury/Trauma or Illness?:Injury/Trauma How long have you had these symptoms (acute/chronic)?:Acute History of cancer?:no Surgeries, chemotherapy, or radiation?:no Type of Exam?:Initial Mechanism of injury?:unknownXR Wrist Left 3+ Views (Standard)on 01-17-2019 Unremarkable left wrist radiographs. [employer] [employer] Workstation ID: [id number] EXAMINATION: XR WRIST LEFT 3+ VIEWS (STANDARD) HISTORY: pain and swelling left wrist. no know injury. getting worse COMPARISON: Left hand 01/07/2018 FINDINGS: Frontal, oblique, lateral views of the left wrist. There is no acute fracture or dislocation. The joint spaces appear preserved. The soft tissues are unremarkable.[facility] - 01/17/2019 4:08 PM EDT EXAMINATION: XR WRIST LEFT 3+ VIEWS (STANDARD) HISTORY: pain and swelling left wrist. no know injury. getting worse COMPARISON: Left hand 01/07/2018 FINDINGS: Frontal, oblique, lateral views of the left wrist. There is no acute fracture or dislocation. The joint spaces appear preserved. The soft tissues are unremarkable. IMPRESSION: Unremarkable left wrist radiographs. [employer] Workstation ID: [id number] Recordson [id number] Records [id number]#1.00OTGTIFFMercy Health St. Vincent Medical CenterUS ABDOMEN COMPLETEon [id number] ABDOMEN COMPLETE Begin Addendum #1 CORRECTION: First line of Impression should read: [...] smaller right kidney. No gallstones. No free fluid.NormalNew Bridge Medical CenterCB(NO DIFF)on 04-29-4408Vimvmkrvpok distribution width Ratio (RBC)13.8 %Uzhwaw53.5-14.5AVirtua BerlinComment on above:Performed By: #### HEMOG #### Testing performed at [address] [address] #### CMPF #### Testing performed at [address] [address] Testing performed at [address] [address] #### LIPA2 #### Testing performed at [address] [address]Slgcejgvjs Volume Fraction (Bld)40.7 %Xpogbs48.0-48.0New Bridge Medical CenterComment on above:Performed By: #### HEMOG #### Testing performed at [address] [address] #### CMPF #### Testing performed at [address] [address] Testing performed at [address] [address] #### LIPA2 #### Testing performed at [address] [address]Xlaoitqmok mass conc (Bld)13.6 g/tERrlzjq39.0-16.0[facility] HospitalComment on above:Performed By: #### HEMOG #### Testing performed at [address] [place] [address] #### CMPF #### Testing performed at [address] [place] [address] Testing performed at [address] [place] [address] #### LIPA2 #### Testing performed at [address] [address]XJU Entitic mass (RBC)31.2 znTvtals66.0-35.0[facility] HospitalComment on above:Performed By: #### HEMOG #### Testing performed at [address] [place] [address] #### CMPF #### Testing performed at [address] [place] [address] Testing performed at [address] [place] [address] #### LIPA2 #### Testing performed at [address] [address]CTZC mass conc (RBC)33.5 g/uMShlhsp72.0-37.0[facility] HospitalComment on above:Performed By: #### HEMOG #### Testing performed at [address] [place] [address] #### CMPF #### Testing performed at [address] [place] [address] Testing performed at [address] [place] [address] #### LIPA2 #### Testing performed at [address] [address]GGF Entitic volume (RBC)93.2 vDLmtkjj77.0-100.0[facility] HospitalComment on above:Performed By: #### HEMOG #### Testing performed at [address] [place] [address] #### CMPF #### Testing performed at [address] [place] [address] Testing performed at [address] [address] #### LIPA2 #### Testing performed at [facility] [address] [facility], [place] [address]Xgsaitav mean volume Entitic volume (Bld)8.9 fLNormal7.4-11.0 New Bridge Medical CenterComment on above:Performed By: #### HEMOG #### Testing performed at [address] [place] [address] #### CMPF #### Testing performed at [address] [place] [address] Testing performed at [address] [place] [address] #### LIPA2 #### Testing performed at [address], [place] [address]Uscrucify #/vol (Bld)174 /lgzDlgope836.0-400.0[facility] Medical CenterComment on above:Performed By: #### HEMOG #### Testing performed at [address] [place] [address] #### CMPF #### Testing performed at [address] [place] [address] Testing performed at [address] [place] [address] #### LIPA2 #### Testing performed at [address], [place] [address]EOT #/vol (Bld)4.37 /cmmNormal4.0-5.4AVirtua Berlin Comment on above:Performed By: #### HEMOG #### Testing performed at [address] [place] [address] #### CMPF #### Testing performed at [address] [place] [address] Testing performed at [address] [place] [address] #### LIPA2 #### Testing performed at [address], [place] [address]IUM #/vol (Bld)8.8 /cmmNormal3.6-11.0[facility] Comment on above:Performed By: #### HEMOG #### Testing performed at [address] [place] [address] #### CMPF #### Testing performed at [address] [place] [address] Testing performed at [address] [place] [address] #### LIPA2 #### Testing performed at [address], [place] [address]FSW FASTINGon 09-01-2018A:G RATIO1.2 RATIOLow1.3-2.2AVirtua BerlinComment on above:Performed By: #### HEMOG #### Testing performed at [address] [place] [address] #### CMPF #### Testing performed at [address] [place] [address] Testing performed at [address] [place] [address] #### LIPA2 #### Testing performed at [address], [place] [address]Kkjjorn mass conc4.0 G/dlNormal3.5-5.0[facility] Comment on above:Performed By: #### HEMOG #### Testing performed at [address] [place] [address] #### CMPF #### Testing performed at [address] [place] [address] Testing performed at [address] [place] [address] #### LIPA2 #### Testing performed at [address], [place] [address]DPE enzyme act/vol74 U/GIgywch24-017LizfxNew Bridge Medical Center Comment on above:Performed By: #### HEMOG #### Testing performed at [address] [place] [address] #### CMPF #### Testing performed at [address] [place] [address] Testing performed at [address] [place] [address] #### LIPA2 #### Testing performed at [address] [place] [address]GPL enzyme act/vol16 U/KArpnkx67-12LsomdNew Bridge Medical CenterComment on above:Performed By: #### HEMOG #### Testing performed at [address] [place] [address] #### CMPF #### Testing performed at [address] [place] [address] Testing performed at [address] [place] [address] #### LIPA2 #### Testing performed at [address] [address]ZGZ enzyme act/vol20 U/THnlajz83-75OijkgNew Bridge Medical CenterComment on above:Performed By: #### HEMOG #### Testing performed at [address] [place] [address] #### CMPF #### Testing performed at [address] [place] [address] Testing performed at [address] [place] [address] #### LIPA2 #### Testing performed at [address] [address]Pkdrgjpuo mass conc0.5 mg/dLNormal0.2-1.2AVirtua [facility] Comment on above:Performed By: #### HEMOG #### Testing performed at [address] [place] [address] #### CMPF #### Testing performed at [address] [place] [address] Testing performed at [address] [place] [address] #### LIPA2 #### Testing performed at [address] [place] [address]Uwsbxzssku mass conc0.5 mg/dLLow0.52-1.04[facility] Comment on above:Performed By: #### HEMOG #### Testing performed at [address] [place] [address] #### CMPF #### Testing performed at [address] [place] [address] Testing performed at [address] [place] [address] #### LIPA2 #### Testing performed at [address] [address]KCT. GFR,>60NormalAvita Clarksville HospitalComment on above:Performed By: #### HEMOG #### Testing performed at [address] [address] #### CMPF #### Testing performed at [address] [place] [address] Testing performed at [address] [address] #### LIPA2 #### Testing performed at [address] [address]JWV. GFR,Non >60NormAlbuquerque Indian Health Center Comment on above:Performed By: #### HEMOG #### Testing performed at [address] [address] #### CMPF #### Testing performed at [address] [place] [address] Testing performed at [address] [address] #### LIPA2 #### Testing performed at [address] [address]SBZ/1.73 sq M predicted among non-blacks MDRD vol rate/area (S/P/Bld)Average GFR for 30-39 years old = 109.[facility] Comment on above:Result Comment: Chronic Kidney disease, GFR = <60. Kidney failure, GFR = <15. The GFR estimate is not adjusted for extreme body surface area or acute process, nor has it been validated for women or ethnic groups other than and . Testing performed at [place] [address]Performed By: #### HEMOG #### Testing performed at [address] [place] [address] #### CMPF #### Testing performed at [address] [address] Testing performed at [address] [address] #### LIPA2 #### Testing performed at [address] [address]Gpjhkku mass conc7.4 g/dLNormal6.3-8.2AV[facility]ua [facility] Comment on above:Performed By: #### HEMOG #### Testing performed at [address] [place] [address] #### CMPF #### Testing performed at [address] [place] [address] Testing performed at [address] [place] [address] #### LIPA2 #### Testing performed at [address], [place] [address]Zkom nitrogen mass conc11 mg/dLNormal7-20[facility] Comment on above:Performed By: #### HEMOG #### Testing performed at [address] [place] [address] #### CMPF #### Testing performed at [address] [place] [address] Testing performed at [address] [place] [address] #### LIPA2 #### Testing performed at [address], [place] [address]Hlcvqml mass conc9.5 mg/dLNormal8.4-10.2AV[facility]ua [facility] Comment on above:Performed By: #### HEMOG #### Testing performed at [address] [place] [address] #### CMPF #### Testing performed at [address] [place] [address] Testing performed at [address] [place] [address] #### LIPA2 #### Testing performed at [address], [place] [address]Hmozkwdm molar conc99 mmol/XZrxpqm33-658KgqqiNew Bridge Medical Center Comment on above:Performed By: #### HEMOG #### Testing performed at [address] [place] [address] #### CMPF #### Testing performed at [address] [place] [address] Testing performed at [address] [place] [address] #### LIPA2 #### Testing performed at [address], [place] [address]HC0 molar conc23 mmol/KZcnaiw55-49Ksuam Clarksville HospitalComment on above:Performed By: #### HEMOG #### Testing performed at [address] [place] [address] #### CMPF #### Testing performed at [address] [place] [address] Testing performed at [address] [place] [address] #### LIPA2 #### Testing performed at [address], [place] [address]Euqkyls mass conc81 mg/cAIkppxt80-152QggeiNew Bridge Medical Center Comment on above:Result Comment: NORMAL <100 mg/dL PREDIABETES 101-126 mg/dL DIABETES 126 mg/dL or higherPerformed By: #### HEMOG #### Testing performed at [address] [place] [address] #### CMPF #### Testing performed at [address] [place] [address] Testing performed at [address] [place] [address] #### LIPA2 #### Testing performed at [address] [place] [address]Clwaysnwe molar conc3.4 mmol/LLow3.5-5.1AV[facility]ua [facility] Comment on above:Performed By: #### HEMOG #### Testing performed at [address] [place] [address] #### CMPF #### Testing performed at [address] [place] [address] Testing performed at [address] [place] [address] #### LIPA2 #### Testing performed at [address], [place] [address]Nbicjf molar gtdi943 mmol/TWkeufp498-476VqlpaNew Bridge Medical Center Comment on above:Performed By: #### HEMOG #### Testing performed at [address] [place] [address] #### CMPF #### Testing performed at [address] [place] [address] Testing performed at [address] [place] [address] #### LIPA2 #### Testing performed at [facility] [address] [facility], [place] [address]WAOVVO,SERUMon 39-60-9993PNOJKS,SERUM20 U/KDxb53-610Uymhq Ontario HospitalComment on above:Result Comment: Testing performed at [place], [place] [address]Ikchumumq By: #### HEMOG #### Testing performed at [address] [place] [address] #### CMPF #### Testing performed at [address] [place] [address] Testing performed at [address] [place] [address] #### LIPA2 #### Testing performed at [facility] [address] [facility], [place] [address]HBRIV MACROSCOPICon 75-07-4223Fquutscdn Ql (U)NegativeNormal NEGATIVENew Bridge Medical CenterComment on above:Performed By: #### UMAC #### Testing performed at [address] [address]Sxqbdaj Nom (U)SLIGHTLY CLOUDYAbnormalCLEARAVirtua BerlinComment on above:Performed By: #### UMAC #### Testing performed at [address] [address]Imyhf Nom (U)YELLOWNormalYELLOWNew Bridge Medical CenterComment on above:Performed By: #### UMAC #### Testing performed at [address] [place] [address]Umgqgan Ql (U)NegativeNormalNEGLyons VA Medical Center Comment on above:Performed By: #### UMAC #### Testing performed at [address], [place] [address]gA (U)6.0 [pH]Normal5.0-7.0[facility] HospitalComment on above:Performed By: #### UMAC #### Testing performed at [address] [place] [address]Mmlkeqc mass conc (U)NegativeNormalNEGATIVERunnells Specialized Hospital HospitalComment on above:Performed By: #### UMAC #### Testing performed at [address] [place] [address]UCSBS HEMOGLOBINNegativeNormalNEGATIVENew Bridge Medical Center Comment on above:Performed By: #### UMAC #### Testing performed at [address], [place] [address]XYMKE KETONETRACEAbnormalNEGLyons VA Medical CenterComment on above:Performed By: #### UMAC #### Testing performed at [address] [place] [address]QSLHA LEUKOTESTNegativeNonovant health thomasville medical centerNEGLyons VA Medical Center Comment on above:Performed By: #### UMAC #### Testing performed at [address], [place] [address]IJOPX NITRATESNegativeNonovant health thomasville medical centerNEGLyons VA Medical Center Comment on above:Performed By: #### UMAC #### Testing performed at [address] [address]IOWPB SPEC GRAVITY>1.018Gdaf7.010-1.025[facility] Comment on above:Performed By: #### UMAC #### Testing performed at [address] [address]Iqxxibrafjnu Qn (U)0.2 mg/dlNormal0.2-1.0[facility] Comment on above:Performed By: #### UMAC #### Testing performed at [address], [place] [address]GC OB DATING ABDOMINAL < 14WEEKSon 08-57-0738OV OB DATING ABDOMINAL < 14WEEKSULTRASOUND OBSTETRICAL ADDITIONAL CLINICAL INFORMATION: Trauma, fall, . [...] ovary are identified. No adnexal masses are visualized.[facility] HospitalCoding Summaryon [id number] Summary CODING DATE: 01/11/2018 [facility] STATUS: Home PAYOR: Commercial Insurance [employer] DESCRIPTION [...] By: Kaela Fair Date Saved: 01/11/2018 09:25 [facility] HospitalConsent Formson 01-10-2018 Consent [id number]#1.00OTGTIFFMercy Health St. Vincent Medical CenterED Clinical Summaryon [id number] Clinical [facility] ? Urgent Care [address] [place] [address] Clinical Summary PERSON INFORMATION Name: AURORA MENDEZ Age: 32 Years Sex: FEMALE : [birth year] MRN: Acct#: Visit Reason: UC - Hand Injury; LEFT HAND PAIN/INJURY Arrival: 01/07/18 16:55:00 Discharge: 01/07/18 17:25:00 LOS: 000 00:30 Check In: 01/07/18 16:55:00 Checkout: 01/07/18 17:25:00 Address: [address] [place] [address] PCP: NEO MONTALVO PROVIDER INFORMATION Provider Role [...] Known Medication Allergies PHYSICIAN DOCUMENTATION Patient: AURORA MENDEZ Age: 32 years Sex: FEMALE : [birth year] Associated Diagnoses: Hand sprain Author: Lisa Shelton History of Present Illness 32-year-old female presents chief complaint of left hand pain. She was moving a mattress several days ago and feels pain to the dorsal aspect of the left hand has pain with range of motion. Mild softtissue swelling observed. Patient has no other injury [...] mcg, 1 tab(s), PO, Daily, 0 Refill(s) hydrochlorothiazide-triamterene: PO, Daily, 0 Refill(s) levothyroxine 175 mcg [...] necessary Impression and Plan Diagnosis Hand sprain (YDG72-PC S63.90XA, Discharge, Medical) Plan Condition: Stable. Disposition: Discharged: Time 01/07/18 17:16:00, to home. Patient was given the following educational materials: Intermetacarpal Sprain, Intermetacarpal Sprain. Follow up with: NEO MONTALVO In 2 days 01/09/18. Counseled: Patient, Friend, Regarding treatment plan. DISCHARGE INFORMATION: Discharge Disposition: Home Discharge Location: PATIENT EDUCATION INFORMATION Instructions: Intermetacarpal Sprain Follow-Up: With: Address: When: NEO MONTALVO [address] [id number] [facility] () In 2 days 01/09/18 DIAGNOSIS: Hand sprain Patient Understands: Yes - Patient/family/caregiver verbalizes understanding of instructions given Comment:[facility] Medical CenterED Note - Physicianon [id number] Note - PhysicianPatient: AURORA MENDEZ Age: 32 years Sex: FEMALE : [birth year] Associated Diagnoses: Hand sprain Author: Lisa Shelton History of Present Illness 32-year-old female presents chief complaint of left hand pain. She was moving a mattress several days ago and feels pain to the dorsal aspect of the left hand has pain with range of motion. Mild softtissue swelling observed. Patient has no other injury [...] mcg, 1 tab(s), PO, Daily, 0 Refill(s) hydrochlorothiazide-triamterene: PO, Daily, 0 Refill(s) levothyroxine 175 mcg [...] necessary Impression and Plan Diagnosis Hand sprain (MTA39-GY S63.90XA, Discharge, Medical) Plan Condition: Stable. Disposition: Discharged: Time 01/07/18 17:16:00, to home. Patient was given the following educational materials: Intermetacarpal Sprain, Intermetacarpal Sprain. Follow up with: NEO MONTALVO In 2 days 01/09/18. Counseled: Patient, Friend, Regarding treatment plan. [Electronically Signed on: 01/07/2018 17:19 EDT] Lisa Shelton [Verified on: 01/07/2018 17:19 EDT] Lisa ShelotnMercy Health St. Vincent Medical CenterED Patient Summaryon [id number] [facility] [address] [place] [address] PATIENT DISCHARGE INSTRUCTIONS Patient Information Name: AURORA MENDEZ Age: 32 Years Date of : [birth year] Reason For Visit: UC - Hand Injury; LEFT HAND PAIN/INJURY Arrival Time: 01/07/18 16:55:00 Primary Care Physician: NEO MONTALVO Attending Physician: Lisa Shelton Comment: Patient Education With: Address: When: NEO MONTALVO [address] [place] [address] Business (1) In 2 days 01/09/18 Intermetacarpal Sprain [...] health care provider. Remove it only as toldby your health care provider. ? Loosen the [...] provider or physical therapist. General instructions? Take jabr-gkt-mxamfpa and prescription medicines only as told by your health care provider. ? If you have a cast or a splint, do not put pressure on any part of the cast or splint until it isfully hardened. This may take several hours. ? [...] a dark color, such as blue or omre. This information is not intended to replace advice given to you by your health care provider. Make sure you discuss any questions you have with your health care provider. Document Released: 08/01/2006 Document Revised: 01/06/2017 Document Reviewed: 01/19/2016 ? 2017 Elsevier Medication Information: The exam and treatment you received today in the [facility] Emergency Department were for an urgent problem and are not intended as complete care. It is important for you to follow up with a doctor, nurse practitioner, or physician?s exceptional children teacher assistant for ongoing care. If your symptoms become worse or you donot improve as expected and you are unable [...] so we can reach you if necessary. [facility] Emergency Department has provided you with a complete list of medications post discharge. Please inform your antique finisher/provider of your visit and for further instruction on these medications. Any specific questions regarding your chronic medications and dosages should be discussed with your primary care physician(s) and/or pharmacist. Medications to Continue That Have Not Changed Other Medications hydrochlorothiazide-triamterene Oral every day. levothyroxine (levothyroxine 175 mcg (0.175 mg) oral tablet) 1 tab(s) Oral every day. levothyroxine (Synthroid 200 mcg (0.2 mg) oral tablet) 1 tab(s) Oral every day. phentermine (Adipex-P) 18.75 Milligram Oral every day. Visit Information Visit Diagnosis: Diagnoses This Visit Hand sprain (S63.90XA) UC - Hand Injury ([id number]) If you received any narcotics, sedation, or [...] Centers for Disease Control and Prevention April 2014[facility] [id number] [facility] ? Urgent Care [address] [place] [address] PATIENT DISCHARGE INSTRUCTIONS Patient Information Name: AURORA MENDEZ Age: 32 Years Date of : [birth year] Reason For Visit: UC - Hand Injury; LEFT HAND PAIN/INJURY Arrival Time: 01/07/18 16:55:00 Primary Care Physician: NEO MONTALVO Attending Physician: Lisa Shelton Comment: Visit Diagnosis: Diagnoses This Visit Hand sprain (S63.90XA) UC - Hand Injury ([id number]) If you received any narcotics, sedation, or [...] any legal documents With: Address: When: NEO SELVIN [address] [place], [place] [id number] Business (1) In 2 days 01/09/18 Medication Information: The exam and treatment you received today in the [facility]gent Care were for an urgent problem and are not intended as complete care. It is important for you to follow up with a doctor, nurse practitioner, or physician?s exceptional children teacher assistant for ongoing care. If your symptoms [...] so we can reach you if necessary. [facility] has provided you with a complete list of medications post discharge. Please inform your antique finisher/provider of your visit and for further instruction on these medications. Any specific questions regarding your chronic medications and dosages should be discussed with your primary care physician(s) and/or pharmacist. Medications to Continue That Have Not Changed Other Medications hydrochlorothiazide-triamterene Oral every day. levothyroxine (levothyroxine 175 mcg [...] health care provider. Remove it only as toldby your health care provider. ? Loosen the [...] provider or physical therapist. General instructions? Take goqs-izj-lzyxefy and prescription medicines only as told by your health care provider. ? If you have a cast or a splint, do not put pressure on any part of the cast or splint until it isfully hardened. This may take several hours. ? [...] Centers for Disease Control and Prevention April 2014[facility] XR Hand Complete Lefton [id number] Hand Complete LeftHAND COMPLETE LEFT CLINICAL DATA: Possible hyperextension injury [...] FOLLOW-UP NEEDED. Mayank Cameron MD JOB #: [id number] bk Final Dictated by: Mayank Cameron MD Dictated DT/TM: 01/08/18 6:15 Signed (Electronic Signature): Mayank Cameron MD 01/08/18 10:52 a Technologist: JESSICAFirelands Regional Medical CenterCoding Summaryon [id number] SummaryCODING DATE: 11/21/2017 [facility] STATUS: Home PAYOR: Commercial Insurance ADMIT DX: [...] By: Kaela Fair Date Saved: 11/21/2017 02:27 [facility] HospitalCoding SummaryCODING DATE: 11/21/2017 [facility] STATUS: Home PAYOR: Commercial Insurance ADMIT DX: [...] By: Kaela Fair Date Saved: 11/21/2017 02:25 pmNCincinnati [facility] Urineon 11-17-2017C Urine30,000 cfu/ml Mixed skin, or urogenital aaron. Clinically insignificant [facility] Medical CenterComment on above:Performed By: #### [id number] #### [facility] (DEFAULT) [address] [place], [place] [address]OF Clinical Summaryon [id number] Clinical Summary [facility] - Emergency Department [address] [place] [address] ED Clinical Summary PERSON INFORMATION Name: AURORA MENDEZ Age: 32 Years Sex: FEMALE : [birth year] MRN: Acct#: Visit Reason: Back pain; LOWER BACK/LOWER ABD PAIN, FEVER Arrival: 11/15/17 11:34:00 Discharge: 11/15/17 12:50:00 LOS: 000 01:16 Check In: 11/15/17 11:34:00 Checkout:11/15/17 12:50:00 Address: [address] [place] [address] PCP: NEO MONTALVO PROVIDER INFORMATION Provider Role Assigned Unassigned Les Bennett ED PA 11/15/17 11:35:26 Stacia Platt ED Nurse 11/15/17 [...] Adult Follow-Up: With: Address: When: NEO MONTALVO [address] [place] [address] [facility] (1) Within 3 to 5 days Comments: Diagnosis is CVAtenderness bilaterally, this is not your back but is in the area of the back,, leftside greater than right, history of pyelonephritis, fever, abnormal urinalysis and hematuria, with negative influenza swab. Report having 2 day history of low-grade fever ranging anywhere from 99-102, having intermittent dysuria or pain with urination, you had pyelonephritis in 2017, you report thesame symptoms, urinalysis abnormal but does not show evidence of obvious urinary tract infection, this could be early in its development, even have a kidney stone. At this time on the basis of history, and abnormal urinalysis were starting you on ciprofloxacin, we discussed the black box warning inregards to spontaneous tendon rupture, avoid any contact sports running or jumping. Providing you with a prescription for Pyridium to help with dysuria, may turn urine orange. For any fever you may develop and back pain, you may take weva-yst-ikpjewa Tylenol and/or ibuprofen. We discussed about labo ratory workup, including CT scan of abdomen and pelvis, but you declined at this time. Follow up with primary care fire next 3-5 days for reevaluation. Return to the emergency department for worsening symptoms or concerns, spiking fevers, onset of abdominal pain, worsening symptoms, acute shortnessof breath or chest pain, inability urinate, any questions return DIAGNOSIS: Abnormal urinalysis; CVA tenderness; Fever in adult; Hematuria, microscopic; History of pyelonephritis Patient Understands: Yes - Patient/family/caregiver verbalizes understanding of instructions given Comment:[facility] - Physicianon 24-02-2406NT Note - PhysicianPatient: AURORA MENDEZ Age: 32 years Sex: FEMALE [...] more than the right, she had a low- grade fever at 99 at first, but has [...] bowel movement was yesterday, little bit of loosestool, but no blood in her stool. Patient [...] comes back positive, we can treat her withantibiotics do not necessarily need to get a CT scan, or blood work and she can see her own primarycare provider in 3-5 days for reevaluation. Patient's influenza swab comes back negative, urinalysis comes back with trace amount of blood, trace amount of leukoesterase, 10-15 WBCs, 2+ bacteria but also many squamous epithelial, so that couldbe a possible contaminant. With this information, patient [...] or Impression and Plan Diagnosis Abnormal urinalysis (LYZ78-OS R82.90, Discharge, Medical) CVA tenderness (HCK86-QY M54.9, Discharge, Medical) Fever in adult (JIX42-IW R50.9, Discharge, Medical) Hematuria, microscopic (CCE72-PN R31.29, Discharge, Medical) History of pyelonephritis (RRN38-QG Z87.448, Discharge, Medical) Plan Condition: Improved, Stable. [...] swab. Report having 2 day history of low- grade fever ranging anywhere from 99-102, having intermittent [...] develop and back pain, you may take yegn-qyg-krxzsbn Tylenol and/or ibuprofen. We discussed about laboratory [...] Bennett [Verified on: 11/15/2017 13:13 EDT] Les BennettMer[facility] St[facility] CenterED Patient Education Noteon [id number] Patient Education NoteEducation Materials Infectious Disease Fever, Adult A fever [...] 01/25/2002 Document Revised: 01/06/2017 Document Reviewed: 09/25/2015 [employer] Interactive Patient Education ? 2017 [employer]. Nephrology Pyelonephritis, Adult Introduction Pyelonephritis is a [...] of the infection.? If the infection is mildand is found early, you may be treated [...] Follow these instructions at home: Medicines? Take hjao-yzn-fhcjsuv and prescription medicines only as told by [...] 01/06/2017 Document Reviewed: 11/24/2015 ? 2017 Elsevier Urology Dysuria Introduction Dysuria is pain or [...] may help to reduce any discomfort you arefeeling: ? Drink enough fluid to keep your [...] about any blood you see in your urine,even if the blood stops without treatment or happens without causing pain. Blood in your urine thathappens and then stops and then happens again [...] 08/01/2006 Document Revised: 01/06/2017 Document Reviewed: 04/01/2014 [employer] Interactive Patient Education ? [address] [employer] CenterED Patient Summaryon [id number] [facility]Gre[facility] - Emergency Department [address] [place] [address] PATIENT DISCHARGE INSTRUCTIONS Patient Information Name: AURORA MENDEZ Age: 32 Years Date of : [birth year] [facility]: [id number] Reason For Visit: Back pain; LOWER BACK/LOWER ABD PAIN, FEVER Arrival Time: 11/15/17 11:34:00 Primary Care Physician: NEO MONTALVO Attending Physician: Blaine Carlisle MD Comment: Visit Diagnosis: Diagnoses This Visit Abnormal urinalysis (R82.90) Back pain ([id number]) CVA tenderness (M54.9) Fever in adult (R50.9) [...] legal documents With: Address: When: NEO MONTALVO [address] [place], [place] [id number] Business (1) Within 3 to 5 days Comments: Diagnosis is CVAtenderness bilaterally, this is not your back but is in the area of the back,, leftside greater than right, history of pyelonephritis, fever, [...] ciprofloxacin, we discussed the black box warning inregards to spontaneous tendon rupture, avoid any contact sports running or jumping. Providing you with a prescription for Pyridium to help with dysuria, may turn urine orange. For any fever you may develop and back pain, you may take yrtb-kwr-nkiyucz Tylenol and/or ibuprofen. We discussed about laboratory workup, including CT scan of abdomen and pelvis, but you declined at this time. Follow up with primary care fire next 3-5 days for reevaluation. Return to the emergency department for worsening symptoms or concerns, spiking fevers, onset of abdominal pain, worsening symptoms, acute shortnessof breath or chest pain, inability urinate, any questions return Medication Information: The exam and treatment you received today in the [facility] Emergency Department were for an urgent problem and are not intended as complete care. It is important for you to follow up with a doctor, nurse practitioner, or physician?s exceptional children teacher assistant for ongoing care. If your symptoms become worse or you donot improve as expected and you are unable [...] so we can reach you if necessary. [facility] Department has provided you with a complete list of medications post discharge. 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 Drink enough fluid to keep your [...] Revised: 01/06/2017 Document Reviewed: 03/27/2015 ? 2017 [employer] Pyelonephritis, Adult Introduction Pyelonephritis is a kidney [...] of the infection.? If the infection is mildand is found early, you may be treated [...] Follow these instructions at home: Medicines? Take ddta-wup-ihconcy and prescription medicines only as told by [...] 01/25/2002 Document Revised: 01/06/2017 Document Reviewed: 09/25/2015 [employer] Interactive Patient Education ? 2017 [employer]. Hematuria, Adult Hematuria is blood in [...] about any blood you see in your urine,even if the blood stops without treatment or happens without causing pain. Blood in your urine thathappens and then stops and then happens again [...] 08/01/2006 Document Revised: 01/06/2017 Document Reviewed: 04/01/2014 [employer] Interactive Patient Education ? 2017 [employer]. Viruses or Bacteria What?s got you [...] Centers for Disease Control and Prevention April 2014[facility] Influenza A&B Rapidon [id number] ANegativeNormalNegGreene Memorial HospitalComment on above:Performed By: #### [id number] #### [facility] (DEFAULT) [address] [place] [address] 72027Pwxypmzhq BNegativeNormmnNegGreene Memorial HospitalComment on above:Performed By: #### [id number] #### [facility] (DEFAULT) [address] [place] [address] 68096Ltiowhvk QC OK?PassNormalRegency Hospital Company HospitalComment on above:Performed By: #### [id number] #### [facility] (DEFAULT) [address] [place] [address] 00555Vbuljrzno Test Urine 1on 11-15-2017U PregNegativeOhiohealth Hardin Memorial HospitalComment on above:Performed By: #### [id number] #### [facility] (DEFAULT) [address] [place] [address] 61563V Preg Internal ControlPassMercy Health St. Vincent Medical CenterComment on above:Performed By: #### [id number] #### [facility] (DEFAULT) [address] [place] [address] 14896QR Nuwtn9sk 09-82-7048KTN #/vol (U)5-10[facility] Medical CenterComment on above:Order Comment: Urinalysis Microscopic order added on by Fluential Expert Rules system.Performed By: #### [id number], [id number] #### [facility] (DEFAULT) [address] [place] [address] 76984TN Bacteria2+NormalRegency Hospital Company HospitalComment on above:Order Comment: Urinalysis Microscopic order added on by Discern Expert Rules system. Performed By: #### [id number], [id number] #### [facility] (DEFAULT) [address] [place] [address] 95241CD Squam EpiManyNWhite Hospital HospitalComment on above: Order Comment: Urinalysis Microscopic order added on by Discern Expert Rules system.Performed By: #### [id number], [id number] #### [facility] (DEFAULT) [address] [place] [address] 39748KU XPJ02-33JvieeuXhkhxkto HospitalComment on above:Order Comment: Urinalysis Microscopic order added on by Discern Expert Rules system. Performed By: #### [id number], [id number] #### [facility] (DEFAULT) [address] [place] [address] 87033HG w Culture if Ind Standardon 95-03-5654Ruwcawh?YesNormal [facility] HospitalComment on above:Performed By: #### [id number], [id number] #### [facility] (DEFAULT) [address] [place] [address] 24600Lcwba SourceClean CatchNormalRegency Hospital Company HospitalComment on above:Performed By: #### [id number], [id number] #### [facility] (DEFAULT) [address] [place] [address] 60285Seumyyzzon UANormalRegency Hospital Company HospitalComment on above:Performed By: #### [id number], [id number] #### [facility] (DEFAULT) [address] [place] [address] 25445Gvmmz Nom (U)YELLOWRegency Hospital Company HospitalComment on above: Performed By: #### [id number], [id number] #### [facility] (DEFAULT) [address] [place] [address] 07716Thjmgbd mass conc (U)NegativeRegency Hospital Company HospitalComment on above:Performed By: #### [id number], [id number] #### [facility] (DEFAULT) [address] [place] [address] 59881Suralxv Ql (U)TRACERegency Hospital Company HospitalComment on above: Performed By: #### [id number], [id number] #### [facility] (DEFAULT) [address] [place] [address] 41356Dctig?IndicatedWagruder HospitalComment on above:Performed By: #### [id number], [id number] #### [facility] (DEFAULT) [address] [place] [address] 61794TF BilirubinSMALLAbnormalRegency Hospital Company HospitalComment on above:Performed By: #### [id number], [id number] #### [facility] (DEFAULT) [address] [place] [address] 82594FP BloodTRACEAbnormalNEGATIVERegency Hospital Company HospitalComment on above:Performed By: #### [id number], [id number] #### [facility] (DEFAULT) [address] [place] [address] 52027DZ ClarityCLOUDYAbnormalCLEARRegency Hospital Company HospitalComment on above:Performed By: #### [id number], [id number] #### [facility] (DEFAULT) [address] [place] [address] 28559ZZ Leuk EstTRACEAbnormalNEGATIVERegency Hospital Company HospitalComment on above:Performed By: #### [id number], [id number] #### [facility] (DEFAULT) [address] [place] [address] 87763CQ NitriteNegativeNormalNEGATIVERegency Hospital Company HospitalComment on above:Performed By: #### [id number], [id number] #### [facility] (DEFAULT) [address] [place] [address] 04170RZ pH6.55-8[facility] HospitalComment on above:Performed By: #### [id number], [id number] #### [facility] (DEFAULT) [address] [place] [address] 70856RM Cdwzpmc89 mg/dLAbnormalNEGATIVERegency Hospital Company HospitalComment on above:Performed By: #### [id number], [id number] #### [facility] (DEFAULT) [address] [place] [address] 59053LS Spec Grav1.0201.001-1.035[facility] HospitalComment on above:Performed By: #### [id number], [id number] #### [facility] (DEFAULT) [address] [place] [address] 29158GX Urobilinogen0.2 mg/dLNormal0.2-1.0[facility] Comment on above:Performed By: #### [id number], [id number] #### [facility] (DEFAULT) [address] [place] [address] 52183 Vital Signs Date TimeVital SignValuePerforming BoobcpkulLnnbsmyv35-42-5894 09:47-0500Body .1 cmBetina Pop [facility] Work Phone: 1(722) [phone]ccxub85-04-2934 09:47-0500Body mass index (BMI) [Ratio]33.5 kg/x7Yeqwwkaila Pop DIAGNOSTIC TECHNOLOGIST Work Phone: 1(357) [phone]tnuhg74-26-2817 09:47-0500Body plqczo97.31 kg Betina Raad DIAGNOSTIC TECHNOLOGIST Work Phone: 1(941) [phone]djiqw98-14-9744 09:47-0500Diastolic blood vxlhlwsi86 mm[Hg]Betina Pop DIAGNOSTIC TECHNOLOGIST Work Phone: 1(446) [phone]itisx59-84-8585 09:47-0500Heart arzp458 /minMokaila Pop DIAGNOSTIC TECHNOLOGIST Work Phone: 1(652) [phone]pyyiv46-63-5931 09:47-5891XcD4% (BldA) [Mass fraction]99 %Betina Pop DIAGNOSTIC TECHNOLOGIST Work Phone: 1(372) [phone]vfqhy09-34-1256 09:47-0500Systolic blood pressure 102 mm[Hg]Betina Pop DIAGNOSTIC TECHNOLOGIST Work Phone: 1(566) [phone]huaov73-26-0113 09:19-0400Body hdavzq484.1 cm Betina Pop DIAGNOSTIC TECHNOLOGIST Work Phone: 1(285) [phone]edtbs82-15-4088 09:19-0400Body mass index (BMI) [Ratio]32.83 kg/a2Yxgbwkaila Pop DIAGNOSTIC TECHNOLOGIST Work Phone: 1(724) [phone]sqdwn64-43-3209 09:19-0400Body guwjzv90.5 kgBetina Pop DIAGNOSTIC TECHNOLOGIST Work Phone: 1(136) [phone]kgtop47-33-1358 09:19-0400Diastolic blood jifunxfo93 mm[Hg]Betina Pop DIAGNOSTIC TECHNOLOGIST Work Phone: 1(548) [phone]rvspj53-45-5140 09:19-0400Heart lgzi784 /minBetina Pop DIAGNOSTIC TECHNOLOGIST Work Phone: 1(459) [phone]nojqt05-21-9926 09:19-1936BcV4% (BldA) [Mass fraction]99 %Betina Pop DIAGNOSTIC TECHNOLOGIST Work Phone: 1(784) [phone]kbtfg30-26-6274 09:19-0400Systolic blood pressure 103 mm[Hg]Betina Pop DIAGNOSTIC TECHNOLOGIST Work Phone: 1(150) [phone]unfqr20-13-7228 09:49-0400Body mxxupi085.1 cm Betina Pop DIAGNOSTIC TECHNOLOGIST Work Phone: 1(893) [phone]pbxio51-16-1608 09:49-0400Body mass index (BMI) [Ratio]32.6 kg/h9QrmryBetina Pop DIAGNOSTIC TECHNOLOGIST Work Phone: 1(248) [phone]efzet75-94-8613 09:49-0400Body erkkqz45.86 kg Betina oPp DIAGNOSTIC TECHNOLOGIST Work Phone: 1(513) [phone]jachm16-57-3194 09:49-0400Diastolic blood euwgryla59 mm[Hg]Betina Pop DIAGNOSTIC TECHNOLOGIST Work Phone: 1(343) [phone]cpuol45-81-0527 09:49-0400Heart rate90 /minBetina Pop DIAGNOSTIC TECHNOLOGIST Work Phone: 1(643) [phone]llttp38-11-9177 09:49-9073CnX4% (BldA) [Mass fraction]99 %Betina Pop DIAGNOSTIC TECHNOLOGIST Work Phone: 1(859) [phone]dbsyz46-19-9667 09:49-0400Systolic blood pressure 95 mm[Hg]Betina Pop DIAGNOSTIC TECHNOLOGIST Work Phone: 1(651) [phone]tacol38-37-2250 08:44-0400Body .1 cm Betina Pop DIAGNOSTIC TECHNOLOGIST Work Phone: 1(691) [phone]ixmhq55-67-3292 08:44-0400Body mass index (BMI) [Ratio]32.62 kg/q3Idcsbkaila Pop DIAGNOSTIC TECHNOLOGIST Work Phone: 1(256) [phone]pulgy57-53-7127 08:44-0400Body vpedks45.91 kg Betina Pop DIAGNOSTIC TECHNOLOGIST Work Phone: JmkeCqclwy17-814637UomrTnvxpf65-07-5631 08:44-0400Diastolic blood oizadkmd11 mm[Hg]Betina Pop DIAGNOSTIC TECHNOLOGIST Work Phone: 1(327) [phone]bjjuq57-56-4306 08:44-0400Heart bmqb876 /minMokaila Pop DIAGNOSTIC TECHNOLOGIST Work Phone: 1(587) [phone]vjrgr09-20-6526 08:44-4248MaJ1% (BldA) [Mass fraction]100 %Betina Pop DIAGNOSTIC TECHNOLOGIST Work Phone: 1(903) [phone]cmfag95-02-3077 08:44-0400Systolic blood pressure 116 mm[Hg]Betina Pop DIAGNOSTIC TECHNOLOGIST Work Phone: 1(199) [phone]cyiry74-23-4862 08:33-0400Body ncnryt135.1 cm Betina Pop DIAGNOSTIC TECHNOLOGIST Work Phone: 1(946) [phone]srpde49-41-7319 08:33-0400Body mass index (BMI) [Ratio]33.02 kg/z2Rljmfkaila Pop DIAGNOSTIC TECHNOLOGIST Work Phone: 1(908) [phone]ezygv96-12-7034 08:33-0400Body xudcbm67.99 kg Betina Pop DIAGNOSTIC TECHNOLOGIST Work Phone: 1(663) [phone]hjpyp98-99-9293 08:33-0400Diastolic blood swwgxtaz14 mm[Hg]Betina Pop DIAGNOSTIC TECHNOLOGIST Work Phone: 1(314) [phone]dlrqy34-85-1562 08:33-0400Heart shed206 /minMolly Raad DIAGNOSTIC TECHNOLOGIST Work Phone: 1(371) [phone]ctrld85-06-5166 08:33-5894ZhH2% (BldA) [Mass fraction]100 %Betina Pop DIAGNOSTIC TECHNOLOGIST Work Phone: 1(498) [phone]mxcyq73-36-2082 08:33-0400Systolic blood pressure 123 mm[Hg]Betina Pop DIAGNOSTIC TECHNOLOGIST Work Phone: 1(470) [phone]lbnhu33-48-6818 09:19-0400Body idhjdl789.1 cm Betina Pop DIAGNOSTIC TECHNOLOGIST Work Phone: 1(483) [phone]yvehp87-67-4578 09:19-0400Body mass index (BMI) [Ratio]35.11 kg/e6Vunhrkaila Pop DIAGNOSTIC TECHNOLOGIST Work Phone: 1(421) [phone]srmmy19-96-1255 09:19-0400Body syhwsg88.71 kg Betina Pop DIAGNOSTIC TECHNOLOGIST Work Phone: 1(384) [phone]egxid97-85-0094 09:19-0400Diastolic blood vimeuths93 mm[Hg]Betina Pop DIAGNOSTIC TECHNOLOGIST Work Phone: 1(167) [phone]uuuux04-79-2611 09:19-0400Heart ozom877 /minBetina Pop DIAGNOSTIC TECHNOLOGIST Work Phone: 1(461) [phone]wchzv10-76-1979 09:19-5312IuO8% (BldA) [Mass fraction]99 %Betina Pop DIAGNOSTIC TECHNOLOGIST Work Phone: 1(401) [phone]lferq18-28-8303 09:19-0400Systolic blood pressure 121 mm[Hg]Betina Pop DIAGNOSTIC TECHNOLOGIST Work Phone: 1(730) [phone]ieyva06-33-2302 08:32-0500Body .1 cm Betina Pop DIAGNOSTIC TECHNOLOGIST Work Phone: 1(146) [phone]tdaxo12-10-5285 08:32-0500Body mass index (BMI) [Ratio]32.28 kg/k6Rgfrnkaila Pop DIAGNOSTIC TECHNOLOGIST Work Phone: 1(321) [phone]itdst43-09-3779 08:32-0500Body rafpdx80 kgMollangelo Pop DIAGNOSTIC TECHNOLOGIST Work Phone: OhioHealthComment on above:per kn23-28-6198 17:45-0500 Body mvszkqisaih24.2 [degF]Lila Barr MD Work Phone: [facility] RehabilitationBwcict09-61-8425 17:10-0500Diastolic blood ltibazot84 mm[Hg]Lila Barr MD Work Phone: [facility] HospitalAm[facility] RehabilitationEzjcto56-90-5025 17:10-0500Heart ruzm880 /Caitlin Barr MD Work Phone: [facility] Wrzfpd78-82-7739 17:10-0500 Respiratory rate16 /Caitlin Barr MD Work Phone: [facility] RehabilitationWvpqpd23-32-0731 17:10-9339HcO6% (BldA) [Mass fraction]98 %Lila Barr MD Work Phone: [facility] RehabilitationOinsxi83-63-4503 17:10-0500Systolic blood fhwkrloy45 mm[Hg]Lila Barr MD Work Phone: [facility] For RehabilitationMdwkxo56-89-1964 07:01-0500Body .6 cmLila Barr MD Work Phone: [facility] RehabilitationMrsncs49-10-5528 07:01-0500Body mass index (BMI) [Ratio]30.67 kg/g8GauofLila Barr MD Work Phone: [facility] Mbxjvw55-62-8279 07:01-0500Body avzbcm47.18 kgLila Barr MD Work Phone: [facility] Vyrcih15-58-6050 09:33-0500Body .6 cmSta 1BSouthampton [facility] HospitalAmiare [facility] HospitalWalkMeJscrlx64-68-3268 09:33-0500Body mass index (BMI) [Ratio]30.7 kg/m2Sta 1Bon Lateral SVy Fhgrnc70-26-8158 09:33-0500Body euupflyzrji53.1 [degF]Sta [address] [place], [place] 3935512-02-2024 09:33-0500Body ljcqon58.[address] [place], [place] 3935512-02-2024 09:33-0500Diastolic blood zxvicgbs26 mm[Hg]Sta [address] [place], [place] 3935512-02-2024 09:33-0500Heart rate95 /minSta [address] [place], [place] 3935512-02-2024 09:33-0500Respiratory rate20 /minSta [address] [place], [place] 3935512-02-2024 09:33-7035UuN6% (BldA) [Mass fraction]100 % Sta [address] [place], [place] 3935512-02-2024 09:33-0500Systolic blood clfdbyqq139 mm[Hg][address]10-31-2024 10:10-0400Body mass index (BMI) [Ratio]31.22 kg/m2Lisa Lord PA Work Phone: [facility] CenterUnhtdxbcbb05-92-6165 10:10-0400Body yqcrya56.73 kgLisa Lord PA Work Phone: [facility] CenterBeqmibqnea94-07-0413 10:10-0400Diastolic blood ombshypy61 mm[Hg]Lisa Lord PA Work Phone: [facility] CenterJxzsawlybx65-65-9431 10:10-0400Systolic blood vbeiuqlv756 mm[Hg]Lisa Lord PA Work Phone: [facility] CenterTtiwtkvhpo42-64-7606 11:37-0400Body bqmnya887.1 cmMokaila Pop DIAGNOSTIC TECHNOLOGIST Work Phone: ohi556-7032ZhpvYnjaqy03-090196LapwMnriwe57-71-4592 11:37-0400Body mass index (BMI) [Ratio]32.35 kg/c7UrwxlBetina Pop DIAGNOSTIC TECHNOLOGIST Work Phone: o195-5081FgziTznhez98-388338PuslQownrz89-61-9756 11:37-0400Body yzbeaa43.18 kg Betina Pop DIAGNOSTIC TECHNOLOGIST Work Phone: [facility]ioHealthComment on above:per zs46-49-4293 11:37-0400 Diastolic blood mm[Hg]Betina Pop DIAGNOSTIC TECHNOLOGIST Work Phone: YzsfStgdia46-082114DnbdZzbhfn37-98-7999 11:37-0400Systolic blood pressure 100 mm[Hg]Betina Pop DIAGNOSTIC TECHNOLOGIST Work Phone: NjsgXgnlue26-269381NgmaKtldop42-86-1692 07:40-0400Body .1 cm Betina Pop DIAGNOSTIC TECHNOLOGIST Work Phone: BivaKwkjfx14-236326LrftQzjjzf08-73-2833 07:40-0400Body mass index (BMI) [Ratio]27.82 kg/o2Ojgpskaila Pop DIAGNOSTIC TECHNOLOGIST Work Phone: PqudIqwiuj57-527809JoabXcitoh02-46-0355 07:40-0400Body bmnxri21.84 kg Betina Pop DIAGNOSTIC TECHNOLOGIST Work Phone: XxrtOcpqxb35-538248KufpJrivun52-72-4065 07:40-0400Diastolic blood mm[Hg]Betina Pop DIAGNOSTIC TECHNOLOGIST Work Phone: [id number] 07:40-0400Heart rate97 /minMokaila Pop DIAGNOSTIC TECHNOLOGIST Work Phone: [id number] 07:40-8759RwH4% (BldA) [Mass fraction]99 %Betina Pop DIAGNOSTIC TECHNOLOGIST Work Phone: [id number] 07:40-0400Systolic blood pressure 101 mm[Hg]Betina Pop DIAGNOSTIC TECHNOLOGIST Work Phone: [id number] 07:57-0400Body .1 cm Betina Pop DIAGNOSTIC TECHNOLOGIST Work Phone: [id number] 07:57-0400Body mass index (BMI) [Ratio]27.29 kg/s0GrdmdBetina Pop DIAGNOSTIC TECHNOLOGIST Work Phone: [id number] 07:57-0400Body qsyjpg98.39 kg Betina Pop DIAGNOSTIC TECHNOLOGIST Work Phone: [facility]HealthComment on above:per [id number] 07:57-0400 Diastolic blood wyfljfte44 mm[Hg]Betina Pop DIAGNOSTIC TECHNOLOGIST Work Phone: [facility]HealthComment on above:per vh00-21-5070 07:57-0400 Systolic blood yncumlxh443 mm[Hg]Betina Pop DIAGNOSTIC TECHNOLOGIST Work Phone: [facility]HealthComment on above:per [id number] 09:00-0500 Body ooasvp906.1 cmMokaila Pop DIAGNOSTIC TECHNOLOGIST Work Phone: AdihAujoaq91-238368LocrMqceej03-04-4454 09:00-0500Body mass index (BMI) [Ratio]28.29 kg/q1Tvabikaila Pop DIAGNOSTIC TECHNOLOGIST Work Phone: TnwhCfkxba44-115580BvinOeruzy29-98-1741 09:00-0500Body jqukwm14.11 kg Betina Pop DIAGNOSTIC TECHNOLOGIST Work Phone: [facility]:Patient Nczenvvo24-01-3505 09:00-0500Diastolic blood hibtumyj06 mm[Hg]Betina Pop DIAGNOSTIC TECHNOLOGIST Work Phone: [facility]:Patient Urvzkpou83-12-7690 09:00-0500Systolic blood kirxbwat275 mm[Hg]Betina Pop DIAGNOSTIC TECHNOLOGIST Work Phone: [facility]:Patient Bwmzfarx64-56-5485 08:12-0500Body .1 cmMokaila Pop DIAGNOSTIC TECHNOLOGIST Work Phone: XpkfQqidew68-755012PwusSquiqt38-07-5629 08:12-0500Body mass index (BMI) [Ratio]28.86 kg/f2Nuoqpkaila Pop DIAGNOSTIC TECHNOLOGIST Work Phone: IvkzXhzogk60-289274ZdtwEeqytm77-46-2073 08:12-0500Body hckwuw10.65 kg Betina Pop DIAGNOSTIC TECHNOLOGIST Work Phone: QamtXxgnmg46-913399SpohQtwnlv43-32-4621 08:12-0500Diastolic blood qpczfvan82 mm[Hg]Betina Pop DIAGNOSTIC TECHNOLOGIST Work Phone: YlpqKyaina41-981297JzbfBiysoo46-20-0502 08:12-0500Heart miwx047 /minMokaila Pop DIAGNOSTIC TECHNOLOGIST Work Phone: LzizDsgmef99-607017NapgBdwbgv56-56-6191 08:12-3204FdS0% (BldA) [Mass fraction]98 %Betina Pop DIAGNOSTIC TECHNOLOGIST Work Phone: LefaCpjtdm99-918588WxxkPdvxfj41-95-4936 08:12-0500Systolic blood pressure 108 mm[Hg]Betina Pop DIAGNOSTIC TECHNOLOGIST Work Phone: XqseBcfmyy87-587962OtpvBlldzz01-62-0076 08:04-0400Body jakayu297.1 cm Betina Pop DIAGNOSTIC TECHNOLOGIST Work Phone: SvaaHngwkn37-597180KgfqIjdwca19-01-7882 08:04-0400Body mass index (BMI) [Ratio]29.19 kg/v7Syqtqkaila Pop DIAGNOSTIC TECHNOLOGIST Work Phone: GblnLjdgbp72-359775BdtfNistaw47-65-0016 08:04-0400Body afxeio59.56 kg Betina Pop DIAGNOSTIC TECHNOLOGIST Work Phone: [facility]:Patient Tyqkwbcd09-06-9394 08:04-0400Diastolic blood pufpanyx56 mm[Hg]Betina Pop DIAGNOSTIC TECHNOLOGIST Work Phone: [facility] on above:Patient Lkzfeipn43-41-3599 08:04-0400Systolic blood mm[Hg]Betina Pop DIAGNOSTIC TECHNOLOGIST Work Phone: [facility] on above:Patient Hagzzhqd74-47-2848 08:03-0400Body hegetq536.1 cmBetina Pop DIAGNOSTIC TECHNOLOGIST Work Phone: KovpRlanky90-465536BtqkGkaiec67-73-1894 08:03-0400Body mass index (BMI) [Ratio]34.53 kg/e4FtixhBetina Pop DIAGNOSTIC TECHNOLOGIST Work Phone: LhomOfadxi62-070266NesfZqelku38-57-7776 08:03-0400Body iwvgbj71.12 kg Betina Pop DIAGNOSTIC TECHNOLOGIST Work Phone: [facility]Comment [facility]:per si68-98-7274 08:58-0400 Body wzyuhy468.1 cmMokaila Pop DIAGNOSTIC TECHNOLOGIST Work Phone: UhvuLdhedd47-546972BgdcMippkj86-91-5237 08:58-0400Body mass index (BMI) [Ratio]36.48 kg/n4Rtayqangelo Pop DIAGNOSTIC TECHNOLOGIST Work Phone: CqeyJktqvc60-666615BdomOizjzy27-37-0150 08:58-0400Body twkayf39.43 kg Betina Pop DIAGNOSTIC TECHNOLOGIST Work Phone: [facility] above:Patient Jzqqdwiyf96-51-7008 08:58-0400Diastolic blood mm[Hg]Betina Pop DIAGNOSTIC TECHNOLOGIST Work Phone: [facility] above:Patient Redwriwt76-08-2168 08:58-0400Systolic blood ndazgkae254 mm[Hg]Betina Pop DIAGNOSTIC TECHNOLOGIST Work Phone: [facility] on above:Patient Xbzhwjix44-22-9369 09:01-0500Body .1 cmMokaila Pop DIAGNOSTIC TECHNOLOGIST Work Phone: FrmaFoayvi26-302748NnpeUcbcft92-69-7764 09:01-0500Body mass index (BMI) [Ratio]38.77 kg/l4Svhsjkaila Pop DIAGNOSTIC TECHNOLOGIST Work Phone: XxtcLijjad19-492873YylqYtnkcc48-08-9174 09:01-0500Body goprxx801.69 kg Betina Pop DIAGNOSTIC TECHNOLOGIST Work Phone: [facility]Comment on above:PATIENT VQUDOZPS37-59-4957 08:09-0500Body bkybnq025.1 cmMokaila Pop DIAGNOSTIC TECHNOLOGIST Work Phone: SclgJnrxeg30-897028XtirDrjrxl38-22-9176 08:09-0500Body mass index (BMI) [Ratio]40.87 kg/h6Rbximkaila Pop DIAGNOSTIC TECHNOLOGIST Work Phone: HylqTpiaev09-612583XkytHgqutc07-31-3347 08:09-0500Body nyzqgt936.4 kg Betina Pop DIAGNOSTIC TECHNOLOGIST Work Phone: [phone]ccniu22-08-9384 08:09-0500Diastolic blood fdbaptfj87 mm[Hg]Betina Pop DIAGNOSTIC TECHNOLOGIST Work Phone: [phone]vyhbm66-77-0226 08:09-0500Heart rate72 /minMokaila Pop DIAGNOSTIC TECHNOLOGIST Work Phone: LrbaPuxheg75-821441OgquBhqqmb43-66-8033 08:09-2548DpT9% (BldA) [Mass fraction]95 %Betina Pop DIAGNOSTIC TECHNOLOGIST Work Phone: KovdSwdrsf45-738301LnkpSdtalw98-92-4023 08:09-0500Systolic blood pressure 112 mm[Hg]Betina Pop DIAGNOSTIC TECHNOLOGIST Work Phone: [phone]xcmvc07-05-3500 08:22-0400Body ebctca219.1 cm Beitna Pop DIAGNOSTIC TECHNOLOGIST Work Phone: CrwxZqonwb75-312749IulwAwhflk13-06-8133 08:22-0400Body mass index (BMI) [Ratio]42.6 kg/o8Luukekaila Pop DIAGNOSTIC TECHNOLOGIST Work Phone: DpiqUfnmhy29-526882UhsaGwghhw45-40-1967 08:22-0400Body mdprfe316.12 kg Betina Pop DIAGNOSTIC TECHNOLOGIST Work Phone: [facility]Comment on above:pt. sydfmwhj55-67-3575 10:19-0400Body .1 cmMokaila Pop DIAGNOSTIC TECHNOLOGIST Work Phone: FxfzJmfhcs74-109830PqtiYjwkkz90-45-9127 10:19-0400Body mass index (BMI) [Ratio]44.26 kg/c9UnxtqBetina Pop DIAGNOSTIC TECHNOLOGIST Work Phone: TjsyOmfxto77-778821MfhfCyehgr66-94-3711 10:19-0400Body kjszdi097.66 kg Betina Pop DIAGNOSTIC TECHNOLOGIST Work Phone: [facility]Comment on above:pt. ctxenxfe46-89-3809 09:42-0400Body efiqwq957.1 cmMokaila Pop DIAGNOSTIC TECHNOLOGIST Work Phone: KajjVqupha77-624094WudzGrskse36-96-4817 09:42-0400Body mass index (BMI) [Ratio]45 kg/o1Axhwikaila Pop DIAGNOSTIC TECHNOLOGIST Work Phone: CbkzVnqigf01-489497DfefBajemf11-23-4182 09:42-0400Body lwydgd898.65 kg Betina Pop DIAGNOSTIC TECHNOLOGIST Work Phone: HtnjXtjrzi72-365809OsenDtreqn58-26-2708 09:42-0400Diastolic blood xmjqsmei52 mm[Hg]Betina Pop DIAGNOSTIC TECHNOLOGIST Work Phone: AcphSygbic45-780686GrymEyktam91-46-0612 09:42-0400Heart rate98 /minMokaila Pop DIAGNOSTIC TECHNOLOGIST Work Phone: [phone]ytqws45-70-9754 09:42-3533WeB2% (BldA) [Mass fraction]98 %Betina Pop DIAGNOSTIC TECHNOLOGIST Work Phone: [phone]ljZjqvwu48-94-0593 09:42-0400Systolic blood pressure 119 mm[Hg]Betina Pop DIAGNOSTIC TECHNOLOGIST Work Phone: WhisTcbelq52-671103NhbaYonbpq89-74-8078 09:08-0400Body tyyxuv836.1 cm Betina Pop DIAGNOSTIC TECHNOLOGIST Work Phone: [phone]dybIzszcw63-38-2691 09:08-0400Body mass index (BMI) [Ratio]45.85 kg/k3Fjnvakaila Pop DIAGNOSTIC TECHNOLOGIST Work Phone: NqvkMklyrv16-465710QignGdsphz96-62-8440 09:08-0400Body ahctxv491.97 kg Betina Pop DIAGNOSTIC TECHNOLOGIST Work Phone: CvwuYumhhe32-045957YfdkDwozvn89-85-9581 09:08-0400Diastolic blood johugogn88 mm[Hg]Betina Pop DIAGNOSTIC TECHNOLOGIST Work Phone: [phone]vocWzeluj58-20-9713 09:08-0400Heart rate96 /minBetina Pop DIAGNOSTIC TECHNOLOGIST Work Phone: EefaLgckxm19-730708OunzMubkim51-50-1236 09:08-7171QfT9% (BldA) [Mass fraction]97 %Betina Pop DIAGNOSTIC TECHNOLOGIST Work Phone: OjirXkzext25-803488TzlkOndczj22-13-3868 09:08-0400Systolic blood pressure 112 mm[Hg]Betina Pop DIAGNOSTIC TECHNOLOGIST Work Phone: XnclNpefrd65-567997XauuZpwnag81-23-5061 09:58-0400Body .1 cm Betina Pop DIAGNOSTIC TECHNOLOGIST Work Phone: ZiyvIwwcsd99-309269CphkWxqppm93-27-9099 09:58-0400Body mass index (BMI) [Ratio]48.38 kg/l8Kyafckaila Pop DIAGNOSTIC TECHNOLOGIST Work Phone: XutuXxffiz18-078636MkhlCqpqei56-49-2609 09:58-0400Body .86 kg Betina Pop DIAGNOSTIC TECHNOLOGIST Work Phone: GrftUkgbij52-202822VfmhLrynuz03-78-9959 09:58-0400Diastolic blood ohzrqesn68 mm[Hg]Betina Pop DIAGNOSTIC TECHNOLOGIST Work Phone: FberFbaagu74-715607AojiWkldda39-66-3783 09:58-0400Heart rmjl330 /minMokaila Pop DIAGNOSTIC TECHNOLOGIST Work Phone: FfjxZgmrxa48-854001PuisNropkg85-92-8902 09:58-5061EmC7% (BldA) [Mass fraction]98 %Betina Pop DIAGNOSTIC TECHNOLOGIST Work Phone: PqbeRblmki22-488866IqrdIaoohp05-76-8836 09:58-0400Systolic blood pressure 122 mm[Hg]Betina Pop DIAGNOSTIC TECHNOLOGIST Work Phone: VoaeAqwozt17-071913RsbhBtmunk55-46-8020 12:26-0400Body uqrrmj924.1 cm Betina Pop DIAGNOSTIC TECHNOLOGIST Work Phone: KlebHrjhbt84-392852BkijMbxqwn45-78-4022 12:26-0400Body mass index (BMI) [Ratio]50.07 kg/x5ZcffiBetina Pop DIAGNOSTIC TECHNOLOGIST Work Phone: RnepDtqpds62-800022YzxtZljvck72-20-3422 12:26-0400Body axnbnemosqz05.4 [degF]Betina Pop DIAGNOSTIC TECHNOLOGIST Work Phone: YomdIofvqm60-050853IfrvVwergz31-30-6413 12:26-0400Body .49 kg Betina Pop DIAGNOSTIC TECHNOLOGIST Work Phone: CzadXarksn00-517585KvvjAzrsqu27-02-7699 12:26-0400Diastolic blood excamkzg24 mm[Hg]Betina Pop DIAGNOSTIC TECHNOLOGIST Work Phone: LflgGqguhh47-478049DwnjHhgmvy16-81-5263 12:26-0400Heart rate85 /minMokaila Pop DIAGNOSTIC TECHNOLOGIST Work Phone: HobbLeiqjl12-847929ZtbqUgvsjo35-70-1353 12:26-7406MxX5% (BldA) [Mass fraction]99 %Betina Pop DIAGNOSTIC TECHNOLOGIST Work Phone: FyinGdjvaj10-354487QwtbMvfskp44-67-9055 12:-0400Systolic blood pressure 122 mm[Hg]Betina Pop DIAGNOSTIC TECHNOLOGIST Work Phone: LlqgJninzr86-314371WmaiLhndbm13-80-9661 12:15-0400Body kcwcyd297.1 cm Lamberto Russo MD Work Phone: [phone]mvmyn21-27-4023 12:15-0400Body mass index (BMI) [Ratio]51.05 kg/e7DistbLamberto Russo MD Work Phone: [phone]15WqkmJanrrm48-78-9526 12:15-0400Body aycydh173.16 kg Lamberto Russo MD Work Phone: [facility]Comment on above:per kf05-60-2506 09:19-0500 Body .1 cmLamberto Russo MD Work Phone: UjhpYmrmvt05-060443FktyHnlplm45-79-9059 09:19-0500Body mass index (BMI) [Ratio]50.06 kg/g1AxvciLamberto Russo MD Work Phone: [phone]pCjnrpv54-56-4009 09:19-0500Body .44 kg Lamberto Russo MD Work Phone: [facility]Comment on above:pt. lzzffgas54-45-2978 09:51-0500Body .1 cmLamberto Russo MD Work Phone: [phone]bzwpg48-11-0839 09:51-0500Body mass index (BMI) [Ratio]50.12 kg/l5VmxrbLamberto Russo MD Work Phone: [phone]odekd95-61-1225 09:51-0500Body fxvcja631.62 kg Lamberto Russo MD Work Phone: ohiDCealthComment on above:per vf64-81-0845 09:17-0500 Body cwlqob641.1 cmEvi Pacheco MD Work Phone: [phone]yorSxmviy18-38-4414 09:17-0500Body mass index (BMI) [Ratio]49.97 kg/n9VhiizEvi Pacheco MD Work Phone: [phone]rmqAnoong75-75-5381 09:17-0500Body rdnghdwgwui65.81 [degF]Evi Pacheco MD Work Phone: [phone]57TpvvOfgiiv63-88-0390 09:17-0500Body ayfjlh483.22 kg Evi Pacheco MD Work Phone: [phone]) [phone]befWzxnjj25-32-2579 09:17-0500Diastolic blood hduqgrdj91 mm[Hg]Evi Pacheco MD Work Phone: 1(251) [phone]txwMjehts42-70-3665 09:17-0500Heart rate82 /minEvi Pacheco MD Work Phone: 1(150) [phone]bypSfsnmh39-88-9001 09:17-0500Respiratory rate16 /min Evi Pacheco MD Work Phone: 1(257) [phone]-474018PxupOfomib04-62-7073 09:17-5394MoQ3% (BldA) [Mass fraction]98 %Evi Pacheco MD Work Phone: [phone]empQjjjzl16-64-3574 09:17-0500Systolic blood pressure 123 mm[Hg]Evi Pacheco MD Work Phone: [phone](767) [phone]lyzIymsab68-72-6326 08:03-0500Body mjokjo160.6 cm Lamberto Russo MD Work Phone: PmzqJekgvk05-504179HkktYeahsy54-28-9555 08:03-0500Body mass index (BMI) [Ratio]47.61 kg/h7VrolwLamberto Russo MD Work Phone: QnvwKlakzi45-905697IpydImtctm32-64-8568 08:03-0500Body nmzcyh499.72 kg Lamberto Russo MD Work Phone: [facility]Comment on above:pt. uemtblld24-21-7746 09:05-0500Body oanonn117.6 cmLamberto Russo MD Work Phone: SrhkIxmjmw87-979754QjpgJyozer70-81-7126 09:05-0500Body mass index (BMI) [Ratio]47.61 kg/b9UfesxLamberto Russo MD Work Phone: LufdPhitqf69-899482NmrjUblscc88-16-7950 09:05-0500Body .81 kg Lamberto Russo MD Work Phone: [facility]Comment on above:per tk70-92-5282 11:19-0400 Body .6 cmLamberto Russo MD Work Phone: GzhrIzhram71-867475TbqoKgucbx76-62-5048 11:19-0400Body mass index (BMI) [Ratio]46.55 kg/e6KjepyLamberto Russo MD Work Phone: SnxhPjeutm69-439608GriuYroffg51-30-3701 11:19-0400Body brxikn595.82 kg Lamberto Russo MD Work Phone: [facility]Comment on above:per ks40-96-0961 20:27-0400 Body uswlvl338.6 cmLamberto Russo MD Work Phone: TgksSujndb23-270509GiwvAzgpvg97-35-2500 20:27-0400Body mass index (BMI) [Ratio]47.94 kg/m3SphbjLamberto Russo MD Work Phone: UlehTvthwh47-464856MiiyOycgmg25-03-7814 20:27-0400Body jjatvx308.72 kg Lamberto Russo MD Work Phone: [facility]Comment on above:last recorded weight 04-14-2021 15:36-0400Body .6 cmLa [facility] Hospitalzeeshan Barnett MGHelrCcvoca63-63-4506 15:36-0400Body mass index (BMI) [Ratio]47.97 kg/q0Rxbtbih Ericka YskpOeyoon07-00-3019 15:36-0400Body zbiiye557.8 kgLa Paz Regional Hospitalzeeshan Matthewsdominique formerly [facility] 04-14-2021 13:46-0400Body xayztn577.6 cmLindauce Rafaela ALATORRE Work Phone: [phone]pfgxr85-33-5088 13:46-0400Body mass index (BMI) [Ratio]47.97 kg/i1XvnnvLamberto Russo MD Work Phone: [phone]cwytk01-71-0912 13:46-0400Body ayacmz554.81 kg Lamberto Russo MD Work Phone: [phone]wknJnmfmo89-36-7107 13:46-0400Diastolic blood mm[Hg]Lamberto Russo MD Work Phone: [phone]btqeb82-61-7330 13:46-0400Heart rate88 /minLindauce Rafaela ALATORRE Work Phone: [phone]xclec29-89-1636 13:46-8733YpW2% (BldA) [Mass fraction]98 %Lamberto Russo MD Work Phone: [phone]lnzyp64-60-5383 13:46-0400Systolic blood pressure 112 mm[Hg]Lamberto Russo MD Work Phone: [phone]37XkxoYfyxok30-51-2521 14:49-0400Body jkczep455.1 cm Alejandra Ying MD Work Phone: 1(389) [phone]aifyp07-72-8157 14:49-0400Body mass index (BMI) [Ratio]43.6 kg/g7HnoobAlejandra Ying MD Work Phone: 1(789) [phone]tSnluty27-96-0122 14:49-0400Body awcttc270.84 kg Alejandra Ying MD Work Phone: 1(561) [phone]16868YuwgZamrow80-39-4012 14:49-0400Diastolic blood hcdktfyf04 mm[Hg]Alejandra Ying MD Work Phone: 1(851) [phone]eOioqfu75-40-6304 14:49-0400Heart ggls886 /minEmilalo Ying MD Work Phone: 1(835) [phone]iHidqcg93-47-0784 14:49-0400Systolic blood pressure 125 mm[Hg]Alejandra Ying MD Work Phone: 1(496) [phone]glcwj84-28-4616 09:58-0400BMI (Body Mass Index) 42.47 kg/s4YzezyUpstate Golisano Children's HospitalOcsouapApxfHqwqtv75-89-1259 09:58-0400Body Ecsgrbbtfur64.9 [degF][facility] HospitalKbteuatUsxwJcneke86-35-8474 09:58-0400Body mbgzje867.34 kgUpstate Golisano Children's HospitalEzxxuobKpojCnxgfa88-23-4675 09:58-0400BP Cfxgkbncu91 mm[Hg][facility]03-31-2021 09:58-0400BP Rhyawwng491 mm[Hg][facility] 11-12-2020 09:58-1640Qugifh138.6 cmUpstate Golisano Children's HospitalQkglazhMqxfUqwmig02-87-4477 09:58-0400 Pulse (Heart Rate)96 /minUpstate Golisano Children's HospitalOoeouboHkkbYcttbl00-27-5108 09:58-0400Pulse Sokzflhu29 %[facility] HospitalCglxvweRodxFvpwnc95-28-4060 09:58-0400Respiratory Rate18 /min [facility] HospitalTawjyoxIqpzNxeppe82-52-9673 07:43-0500BMI (Body Mass Index)40.46 kg/m2 Christa QxwpoNansZnufye75-40-7456 07:43-0500Body Wdnvvvffcjl08 [degF]Christa Sarmiento HwkeHjbnqb04-96-8784 07:43-0500Body .72 kgJuacmarcia [facility] 08-29-2020 07:43-0500BP Cyvuixdho43 mm[Hg]Christa RbwxaVctiZcjfmu23-94-9469 07:43-0500BP Mjbgfkcn651 mm[Hg]Christa StbabPihfTljmwr88-65-8495 07:43-0500Height 167.6 cmChrista GeqriJihzDvkqbi50-28-9756 07:43-0500Pulse (Heart Rate)98 /minAlinamarcia UrxtxUgbbRrmotk66-03-5248 07:43-0500Pulse Kvhisgyf88 %Christa [facility] 08-29-2020 07:43-0500Respiratory Rate17 /minAlinamarcia XrtgtBczgStkrpi52-85-3722 15:01-0500BP Bkscvfwsw67 mm[Hg]Evi KbxtpjtBdllTvktde13-93-9051 15:01-0500BP Lzdjlxns021 mm[Hg][facility] HospitalRxkwviwGxslWigdtt99-06-3274 14:56-0500BMI (Body Mass Index)37.61 kg/e0RzokgUpstate Golisano Children's HospitalNnkxsuwGinrLfghil41-99-9041 14:56-0500Body Temperature 98.01 [degF]Evi HkxrnutFpmpOaeags00-19-0143 14:56-0500Body sdunyu799.69 kg [facility] HospitalBbeptaaFwekLunpay95-83-6854 14:56-3304Ojfxkh092.6 cmCon[facility]12-21-2020 14:56-0500Pulse (Heart Rate)117 /[facility] 08-04-2020 14:56-0500Pulse Amubzzkk03 %Evi GipewazZlcaVmoacr44-99-7878 14:56-0500Respiratory Rate18 /tobyUpstate Golisano Children's HospitalFjdfcumGyjwXcwrwj40-98-7945 07:05-0500BMI (Body Mass Index)37.9 kg/k3KlfwwMain Campus Medical CenterXlmwwUyqzZwyxab80-67-3297 07:05-0500Body Eyhklwvqswj76.71 [degF]Christa BoobsVjbwIsjwht58-52-4836 07:05-0500Body weight 106.5 kgJuMain Campus Medical CenterCduwiBbsqLqsxhk87-05-8142 07:05-0500BP Ehmuqjemw35 mm[Hg]Christa WlbodFwsdDzhgto51-98-1786 07:05-0500BP Apmydkjj516 mm[Hg]Christa [facility] 07-29-2020 07:05-7282Vwtsnc141.6 cmChrista ImqpnQvfkXxcjrc90-90-0919 07:05-0500 Pulse (Heart Rate)110 /minChrista HxvfiStypUnwoiw28-39-2193 07:05-0500Pulse Heklplqv18 %Christa XvebsNcskEpnddk99-50-8585 07:05-0500Respiratory Rate18 /min Christa CcgqnGbltEyumzc20-59-6954 07:02-0500BMI (Body Mass Index)38.24 kg/c2Ofsbr HjmlmYyykVbllxh27-09-5211 07:02-0500Body Jsnuvflducw43.2 [degF]Christa DowThe [facility]Health SystemAbfgLubnfq31-46-0316 07:02-0500Body ufwxpc938.46 Nilda [facility] 07-01-2020 07:02-0500BP Draefhpht74 mm[Hg]Christa AchebWsliMohins41-53-7683 07:02-0500BP Qoilidxc980 mm[Hg][facility] HospitalTuslzSjmzYvmebi56-11-8392 07:02-0500Height 167.6 Dexter AzksjDpoyExcwoz22-92-7053 07:02-0500Pulse (Heart Rate)98 /minsamantha YpofzFwnhIlgjzx60-99-0875 07:02-0500Pulse Sljslccj07 %Christa [facility] 07-01-2020 07:02-0500Respiratory Rate18 /minChrista EimpkKycdDcndgc79-87-6471 07:27-0400BMI (Body Mass Index)41.2 kg/d3Lhpfx PxtgxJemuZhbzpn21-13-9731 07:27-0400Body Hftyywzgywt99.39 [degF]Christa QxfbqIcivTqmxfa48-03-9432 07:27-0400 Body ybrral327.31 [place] [address]EbekhRnoyVedzgf54-40-0809 07:27-0400BP Wajtilkty65 mm[Hg][facility] HospitalTtjvpSomzYvgnqd28-04-7116 07:27-0400BP Qnyonolj033 mm[Hg][facility] CenterTlerHrnhrv60-39-5364 07:276674Mkbvrc407.1 cmChrista IthelVraqUsqcct92-38-8803 07:27-0400Pulse (Heart Rate)102 /minJulie BknzuYcviHtkxvi42-08-3877 07:27-0400 Pulse Bfmucncz00 %Christa ExbvyZevpXtfvut40-28-1329 07:27-0400Respiratory Rate17 /Laura YuiweBvytZyjgcs33-93-2150 10:54-0400BMI (Body Mass Index)41.49 kg/m2 Evi LndqpjzAczkUywvkh86-82-3110 10:54-0400Body Rfmpsgqfoul70.11 [degF]Evi RvulkdtRibeTtxqaz89-75-7391 10:54-0400Body uwwdmm994.08 kgEvi [facility] HospitalYenjPqkcgj91-24-9684 10:54-0400BP Yslxyzykj76 mm[Hg][facility] 04-23-2020 10:54-0400BP Fghdoiqy711 mm[Hg][facility]Roche[facility] HospitalXunmyjbGyprKgcxbl11-86-1684 10:54-4842Jytqzx058.1 [facility] CenterHyfmbjcOhfsNafxhs74-02-9450 10:54-0400Pulse (Heart Rate)105 /tobyUpstate Golisano Children's HospitalUzpbwvaZrzeEigjyg87-46-2264 10:54-0400Pulse Qzgzikql97 % [facility] HospitalCaaddrhDyseCigfvy57-83-1856 10:54-0400Respiratory Rate18 /[facility] HospitalGfgyOmxovi01-53-9135 16:02-0400BMI (Body Mass Index)42.98 kg/m5Ctlhr [facility] CenterPmmpRrgjyh07-75-2780 16:02-0400Body Fqxfuxmivwy98.2 [degF][facility] 03-07-2020 16:02-0400Body wcumfj935.79 kgChrista TxjhiNkirFnvucn38-25-5063 16:02-0400BP Cpljkyhkm61 mm[Hg]Christa PkqfiTiaiNqxbis91-81-9592 16:02-0400BP Jzqfsjsf413 mm[Hg]Christa KukhwDvflVdnbll79-14-7816 16:02-5264Imyhsx659.6 cmChrista UujzpFybeUqthay32-57-0537 16:02-0400Pulse (Heart Rate)105 /Jaxmarcia [facility] CenterCmgxSrdsfj04-49-0540 16:02-0400Pulse Veobkrie84 %Christa OgcekRlqiEhcwia48-50-0993 16:0400Respiratory Rate18 /minAlinamarcia ZhvpkJtxzYtafnw42-47-1929 10:BMI (Body Mass Index)43 kg/s9Zgfby KlfcaXogzRxvlsa61-51-1253 10:040Body Stqfbcahisg57.5 [degF]Christa BurmuXcrtOezwgq20-48-2563 10:Body weight 120.84 kgAlinaMain Campus Medical CenterXgoqgFkjsWzrpcn78-46-3700 10:040BP Uisbljefm44 mm[Hg][facility] HospitalBglhdUvduJktzhv05-78-0125 10:0400BP Wwxqifzu825 mm[Hg][facility] 02-08-2020 10:1933Temcao824.6 cmProMedica [facility] Regional HospitalIqkbnXycmQphqao58-85-8233 10:0400 Pulse (Heart Rate)93 /minProMedica Defiance Regional HospitalIddrfOcozZnwlvc90-48-9779 10:Pulse Wjoggisb09 %[facility] HospitalRowlqYvouRyjncs94-10-9934 10:0400Respiratory Rate16 /min [facility] HospitalRyufcGoezMsvsrf84-75-4731 10:340400BMI (Body Mass Index)44.18 kg/h9OducbUpstate Golisano Children's HospitalCedgfuqChuzVjwjxa07-48-1194 10:340400Body Ojdbaujprgf23.4 [degF][facility]04-03-2020 10:340400Body uyhpha494.15 kgUp[facility] 11-16-2019 10:34-0400BP Baobatbti33 mm[Hg][facility] HospitalYlmouuaRzvvDypdmj97-30-3950 10:34-0400BP Hqzusgke883 mm[Hg][facility] HospitalPgiyautDifcXrbrix35-25-5796 10:34-0400 Wjggtt359.6 cmUpstate Golisano Children's HospitalYgokqejDzvmRhvfxf78-08-1633 10:34-0400Pulse (Heart Rate)113 /minUpstate Golisano Children's HospitalOemjdtuNjbnGbwulo41-33-3265 10:34-0400Pulse Kjegsnyg92 %[facility]04-03-2020 10:34-0400Respiratory Rate16 /minUp[facility]olisano [facility] 08-24-2019 08:240500BMI (Body Mass Index)43.26 kg/f5RvcesUpstate Golisano Children's Hospital 08-24-2019 08:24-0500Body Lwgwzeydets33.01 [degF][facility] 08-24-2019 08:24-0500Body .56 kgUpstate Golisano Children's HospitalJffrnbkHdxkHevzfx99-70-6687 08:24-0500BP Slhyctvrg63 mm[Hg][facility] HospitalUezjamvMmibTkxphi83-91-6322 08:24-0500BP Hjphcqdw818 mm[Hg][facility] HospitalZzmwbgkBtghAdpukh91-61-6315 08:24-2848Hhjvrh452.6 cm [facility] HospitalZauableXakeJtnjzs52-54-2595 08:24-0500Pulse (Heart Rate)102 /minUpstate Golisano Children's HospitalUljtlyzKxfhQyjeft49-28-7152 08:24-0500Pulse Gugwlpmt61 %[facility] 08-24-2019 08:24-0500Respiratory Rate18 /minUpstate Golisano Children's HospitalOiyvoylIguwFinakb74-31-3246 11:16-0400BMI (Body Mass Index)39.48 kg/o6VriguUpstate Golisano Children's HospitalFehkyrhTowrSzyrbl08-43-4853 11:16-0400Body Qciwhdldrat25.6 [degF][facility] HospitalEdyvadfFutvCiiutn31-94-3156 11:16-0400Body bmhesd899.95 kgUpstate Golisano Children's HospitalCwosrdnVwnzCnjuur03-78-0912 11:16-0400BP Trhzbvxbs41 mm[Hg][facility] HospitalWrulbreEfsoXnvuic18-92-1134 11:16-0400BP Vzcyvepk826 mm[Hg][facility] HospitalBwqleqzNpxeHvwjle61-33-6015 11:16-5580Kpoigm280.6 cmCon[facility]08-27-2019 11:16-0400Pulse (Heart Rate)89 /minUpstate Golisano [facility]'s Hospital 04-10-2019 11:16-0400Pulse Idcnxajm70 %[facility] HospitalGypizmnXnynQuqfgx58-78-5177 11:16-0400Respiratory Rate18 /minUpstate Golisano Children's HospitalXcvcfbiYsxpXgokyy70-27-8981 14:38-0400BMI (Body Mass Index)41.62 kg/j7Odtzh McaaqSwspYovrih53-74-1588 14:38-0400Body Fvqnprpnlej84.2 [degF]Emili RsmehJpjsYuuqju71-33-7618 14:38-0400Body weight 115.21 kgLyaranza EdouardSbvfuWbtvQvfdye37-90-8252 14:38-0400BP Rslvhxety17 mm[Hg]Emili EdouardGwatjMiskItknoz62-35-0932 14:38-0400BP Josthskv170 mm[Hg][facility] 01-17-2019 14:38-0051Gboait285.4 cmLjúnior EdouardHjoseSprzZdhwts68-16-8692 14:38-0400 Pulse (Heart Rate)98 /minEmili EdouardTsqwsLmlzWyvjmt61-27-5849 14:38-0400Pulse Bohlmehs62 %Emili EdouardCbajdXeaqCkdhdt75-32-9932 14:38-0400Respiratory Rate16 /min [facility] Encounters Encounter DateEncounter [facility] ProviderFacilityStart: 06-18-2025 End: 72-29-3576Btutxd flowsheetKingland Companiesy Jackeline DO Work Phone: [facility] [facility]BGYNStart: 06-18-2025 End: 63-43-0252Crmaaf flowsheetHolzer Health Systemy Jackeline DO Work Phone: [facility] [place] OBGYNStart: 06-17-2025 End: 25-11-3927Kzayfp outpatient visit 25 minutesMolly Kaela Pop CNP Work Phone: [facility] Weight ManagementComment on above:Atypical eating disorder (Primary Dx); Insulin resistance; Obesity, Class I, BMI 30-34.9; BMI 33.0-33.9,adult; Vitamin D deficiency; Vitamin B6 deficiency; Iron deficiency; Depression, unspecified depression typeStart: 06-17-2025 End: 99-73-2142wsnmllwxrdGNPDZ SUSAN GODINEZKettering Memorial Hospital AmbulatoryStart: 05-15-2025 End: 32-02-5862Ntoiqtnpzhybq [facility] Susan Godinez [facility] Work Phone: [facility] Psych ServicesComment on above: No ShowStart: 70-92-0496pygpldsfvpNUGLZ SUSAN GODINEZKettering Memorial Hospital Ambulatory Start: 04-17-2025 End: 97-07-3742Pgdqgywcyspr consultation with Estelafreddy Susan Godinez FarzadyD Work Phone: [facility] Weight ManagementComment on above:Class 2 obesity (Primary Dx); BMI 32.0-32.9,adult; Psychological factors affecting medical conditionStart: 04-17-2025 End: 79-88-3478vtwqimrihpFJIJS JAYNE WALLACEKettering Memorial Hospital AmbulatoryStart: 04-16-2025 End: 65-07-7378Kxfytj outpatient visit 25 minutesBetina Pop CNP Work Phone: [facility] Weight ManagementComment on above:Atypical eating disorder (Primary Dx); Insulin resistance; Obesity, Class I, BMI 30-34.9; BMI 32.0-32.9,adult; Vitamin D deficiency; Vitamin B6 deficiency; Iron deficiency; Depression, unspecified depression typeStart: 04-16-2025 End: 46-60-2593kbjwkynmztOMQFS MICHELLE WILLIAMSNykavitha [facility] AmbulatoryStart: 03-12-2025 End: 54-16-5126Wzasny outpatient visit 25 minutesBetina Pop CNP Work Phone: [facility] Weight ManagementComment on above:Atypical eating disorder (Primary Dx); Insulin resistance; Obesity, Class I, BMI 30-34.9; BMI 32.0-32.9,adult; Vitamin D deficiency; Vitamin B6 deficiency; Iron deficiency; Depression, unspecified depression typeStart: 03-12-2025 End: 11-45-7672kcrgjcjkpfLmqdb Jayne Wallace PsyD Work Phone: [facility] Weight ManagementComment on above:Class 2 obesity (Primary Dx); BMI 32.0-32.9,adult; Psychological factors affecting medical conditionStart: 02-11-2025 End: 17-09-6236Udrjqz-up encounterBetina Pop CNP Work Phone: [facility] Weight ManagementComment on above: Hemoglobin A1c, CBC, Ferritin, Additional followed-up results: 7Start: 02-06-2025 End: 68-41-6777Gthpza outpatient visit 25 minutesBetina Pop CNP Work Phone: [facility] Weight ManagementComment on above:Atypical eating disorder (Primary Dx); Insulin resistance; Obesity, Class I, BMI 30-34.9; BMI 32.0-32.9,adult; Vitamin D deficiency; Vitamin B6 deficiency; Iron deficiency; Depression, unspecified depression type; Hypothyroidism (acquired)Start: 02-06-2025 End: 10-08-3906uoxmslwuojKpvuq Susanlinsey Coteht [facility] Work Phone: [facility] Weight ManagementComment on above:Class 2 obesity (Primary Dx); BMI 32.0-32.9,adult; Psychological factors affecting medical conditionStart: 01-08-2025 End: 78-80-3151relgdivorgUvrwf Susan [facility] Hospital Work Phone: [facility] Weight ManagementComment on above:Class 2 obesity (Primary Dx); BMI 35.0-35.9,adult; Psychological factors affecting medical conditionStart: 01-08-2025 End: 19-27-7493Rycpcv outpatient visit 25 minutesBetina Pop DIAGNOSTIC TECHNOLOGIST Work Phone: [facility] Weight ManagementComment on above:Atypical eating disorder (Primary Dx); Insulin resistance; Obesity, Class I, BMI 30-34.9; BMI 33.0-33.9,adult; Vitamin D deficiency; Vitamin B6 deficiency; Iron deficiency; Depression, unspecified depression typeStart: 12-10-2024 End: 94-51-5117yaxuecelviTTKBSPeaceHealth AmbulatoryStart: 12-10-2024 End: 98-88-2071Epxxfe outpatient visit 25 minutesBetina Pop CNP Work Phone: [facility] Weight ManagementComment on above:Atypical eating disorder (Primary Dx); Insulin resistance; Obesity, Class II, BMI 35-39.9; BMI 35.0-35.9,adult; Vitamin D deficiency; Vitamin B6 deficiency; Iron deficiency; Depression, unspecified depression typeStart: 10-01-2024 End: 55-18-4090Gluyqr outpatient visit 25 minutesBetina Pop CNP Work Phone: [facility] Weight ManagementComment on above:Atypical eating disorder (Primary Dx); Insulin resistance; Obesity, Class I, BMI 30-34.9; BMI 32.0-32.9,adult; Vitamin D deficiency; Vitamin B6 deficiency; Iron deficiency; Depression, unspecified depression typeStart: 10-01-2024 End: 67-08-6616glzampgrdoBVAWYPeaceHealth AmbulatoryStart: 08-30-2024 End: 00-64-7413pzsfvxuvbaUFormerly [facility], [facility] HospitalStart: 08-30-2024 End: 30-22-2939Bybnpcgklq hospital [facility] by [facility]Mel[facility] Nurse [address] [place] [address] Special ProceduresComment on above:Abdominal wall seroma, subsequent encounterStart: 08-29-2024 End: 57-03-8566imithxfxbaAPointe Coupee General Hospital HospitalStart: 08-29-2024 End: 84-97-2700Kcknivxlpj hospital visit by physicianSt[facility] UltrasoundComment on above:Abdominal wall seroma, subsequent encounter; Postoperative stateStart: 07-26-2024 End: 17-64-2599ugkwphlgheYUniversity Hospitals Parma Medical Centertart: 07-26-2024 End: 16-04-1191Gsffgejwav hospital visit by Taylor Barr MD Work Phone: [place] ORComment on above:S/P panniculectomy (Primary Dx); Symptomatic abdominal panniculus; Diastasis of rectus abdominisStart: 07-16-2024 End: 24-89-5080czdbkeankjAVPNZ ESLAMIMercy St. Anne HospitalStart: 07-16-2024 Encounter for other preprocedural examinationSouth[facility] Start: 07-16-2024 End: 38-46-1563Iwjvyeu encounter statusSta 1BChesapeake Regional Medical CenterStart: 07-16-2024 End: 57-38-4261Dzvdsckkuu hospital visit by Hillary Roque 1[place] Pre- Admit TestingComment on above:Preop testing (Primary Dx)Start: 06-14-2024 End: 75-70-9212Vodwjb flowsheetLisa Pop ZHENG Work Phone: [facility] OBStart: 06-14-2024 End: 49-23-9442Ylitvv flowsheetLisa Pop PA Work Phone: [facility] OBStart: 06-14-2024 End: 66-32-3916Xeakskqma Result EncounterLsia ZHENG Work Phone: [facility] External Department UnsolicitedStart: 06-14-2024 End: 31-28-3798Ralyrwo encounter procedureLisa Pop ZHENG Work Phone: [facility] Work Phone: Start: 06-14-2024 End: 00-68-1828Oewqfxoi preventive med est patient 18-39 yrsLisa Pop ZHENG Work Phone: [facility] BCP OBComment on above:Well woman exam with routine gynecological exam; Herpes simplexStart: 06-14-2024 End: 48-02-5210hcwejfniokWQO MILAGROSMARCONot AvailableStart: 04-17-2024 End: 71-51-1660Hgdlrp outpatient visit 25 minutesMokaila Pop CNP Work Phone: [facility] Weight ManagementComment on above:Atypical eating disorder (Primary Dx); Insulin resistance; Obesity, Class I, BMI 30-34.9; BMI 32.0-32.9,adult; Vitamin D deficiency; Vitamin B6 deficiency; Iron deficiency; Hypothyroidism (acquired); Constipation, unspecified constipation typeStart: 03-13-2024 End: 30-30-7734Uodybf OnlyMokaila Pop CNP Work Phone: [facility] Weight TreatmentComment on above:Insulin resistance (Primary Dx)Start: 03-06-2024 End: 95-23-4569FmeqipHngie Rosendo REDDYMount Carmel Health Systemeal Weight ManagementComment on above:Insulin resistanceStart: 01-18-2024 End: 79-25-5974Ipogdk outpatient visit 25 minutesMokaila Pop CNP Work Phone: o[facility] Systemeal Weight ManagementComment on above:Atypical eating disorder (Primary Dx); Insulin resistance; Overweight (BMI 25.0-29.9); BMI 27.0-27.9,adult; Vitamin D deficiency; Vitamin B6 deficiency; Iron deficiencyStart: 12-16-2023 End: 27-82-5732zkzgxijabmHXGCYKeenan Private Hospitaltart: 43-56-0750Yoslrjtxx for other preprocedural examinationKeenan Private Hospitaltart: 31-73-8124YoudmxSznhq Rosendo Lizzy [facility] Weight ManagementComment on above:Insulin resistanceStart: 11-03-2023 End: 02-05-5679Fxpbmv outpatient visit 25 minutesBetina Pop CNP Work Phone: [facility] Weight ManagementComment on above:Atypical eating disorder (Primary Dx); Insulin resistance; Overweight (BMI 25.0-29.9); BMI 27.0-27.9,adult; Vitamin D deficiency; Vitamin B6 deficiency; Iron deficiency; Hypothyroidism (acquired); Depression, unspecified depression typeStart: 09-01-2023 End: 44-27-7965Nyhbjm outpatient visit 25 Devin Pop CNP Work Phone: [facility] Weight TreatmentComment on above:Atypical eating disorder (Primary Dx); Insulin resistance; Overweight (BMI 25.0-29.9); BMI 28.0-28.9,adult; Vitamin D deficiency; Vitamin B6 deficiency; Iron deficiency; Hypothyroidism (acquired)Start: 93-08-2897iwzukpsobsRCYZWCox Monett PhysiciansStart: 76-26-8777Zjfnhr OnlyBetina Pop CNP Work Phone: [facility] Weight TreatmentComment on above:Insulin resistance; Vitamin D deficiencyStart: 07-13-2023 End: 52-11-6145pvfddxpobgWWHNF FAZIONot AvailableStart: 07-13-2023 End: 76-34-7790bggzwrowtkDDYGBBlanchard Valley Health System [facility] HospitalStart: 07-13-2023 End: 62-06-6441Llbwit outpatient visit 25 minutesBetina Pop CNP Work Phone: [phone] Weight TreatmentComment on above:Atypical eating disorder (Primary Dx); Insulin resistance; Overweight (BMI 25.0-29.9); BMI 28.0-28.9,adult; Vitamin D deficiency; Vitamin B6 deficiency; Iron deficiency; Hypothyroidism (acquired); Depression, unspecified depression type; Fatigue, unspecified typeStart: 05-09-2023 End: 75-39-8252Zcybdc outpatient visit 25 minutesBetina Pop CNP Work Phone: [phone] [place] [address] Weight TreatmentComment on above:Atypical eating disorder (Primary Dx); Insulin resistance; Overweight (BMI 25.0-29.9); BMI 29.0-29.9,adult; Vitamin D deficiency; Vitamin B6 deficiency; Iron deficiency; Depression, unspecified depression type; Hypothyroidism (acquired)Start: 86-98-6061SusdcmDwlnmCira Pop CNP Work Phone: [phone] [place] [address] Weight TreatmentStart: 51-56-6623Sgmkfb Frank Pop CNP Work Phone: [phone] [place] [address] Weight TreatmentStart: 23-41-5158wgiluvpwimNULNKHealthmark Regional Medical Center PhysiciansStart: 70-50-4464Skawgx Frank Pop CNP Work Phone: [phone] [place] [address] Weight TreatmentComment on above:Vitamin D deficiencyHypothyroidism (acquired) (Primary Dx)Start: 01-21-2023 End: 60-60-9322yvkbdzgeujTPEYYBlanchard Valley Health System [facility] HospitalStart: 50-76-4067GlaodaTjbgqAlin Russo MD Work Phone: [phone] [place] [address] Weight TreatmentStart: 69-92-4337plgblffjaxNJKSWHealthmark Regional Medical Center PhysiciansStart: 12-10-2022 End: 04-62-2872Scbdyt outpatient visit 25 minutesBetina Pop CNP Work Phone: [phone] [place] [address] Weight TreatmentComment on above:Atypical eating disorder (Primary Dx); Insulin resistance; Obesity, Class I, BMI 30-34.9; BMI 34.0-34.9,adult; Depression, unspecified depression type; Vitamin D deficiency; Vitamin B6 deficiency; Iron deficiency; Hypothyroidism (acquired)Start: 56-53-6613Jfdrbe Frank Pop CNP Work Phone: [phone] [place] [address] Weight TreatmentStart: 97-10-3831ldfcxaqirdVIWBOBridgton Hospital PhysiciansStart: 10-27-2022 End: 28-40-8067Mtcelw outpatient visit 25 minutesBetina Pop CNP Work Phone: [phone] [place] [address] Weight TreatmentComment on above:Atypical eating disorder (Primary Dx); Insulin resistance; Obesity, Class II, BMI 35-39.9; BMI 36.0-36.9,adult; Depression, unspecified depression type; Vitamin D deficiency; Vitamin B6 deficiency; Iron deficiency; Hypothyroidism (acquired)Start: 26-71-1532OvkplhWwklaCira Pop CNP Work Phone: [phone] [place] [address] Weight TreatmentStart: 09-08-2022 End: 86-05-7207Rahwra outpatient visit 25 minutesBetina Pop CNP Work Phone: [phone] [place] [address] Weight TreatmentComment on above:Atypical eating disorder (Primary Dx); Insulin resistance; Obesity, Class II, BMI 35-39.9; BMI 38.0-38.9,adult; Vitamin D deficiency; Vitamin B6 deficiency; Iron deficiency; Hypothyroidism (acquired)Start: 07-27-2022 End: 95-93-5157Fliznt outpatient visit 25 minutesBetina Pop CNP Work Phone: [phone] [place] [address] Weight TreatmentComment on above:Atypical eating disorder (Primary Dx); Insulin resistance; Obesity, Class III, BMI 40-49.9 (morbid obesity) (HCC); BMI 40.0-44.9, adult (HCC); Vitamin D deficiency; Vitamin B6 deficiency; Iron deficiency; Hypothyroidism (acquired)Start: 55-02-1998Svsgxhnancy Pop CNP Work Phone: [phone] Weight TreatmentComment on above:Hypothyroidism (acquired) (Primary Dx)Start: 06-17-2022 End: 83-31-5271Hbcufr outpatient visit 25 minutesBetina Pop [facility] Work Phone: [phone] [place] [address] Weight TreatmentComment on above:Atypical eating disorder (Primary Dx); Insulin resistance; Obesity, Class III, BMI 40-49.9 (morbid obesity) (HCC); BMI 40.0-44.9, adult (HCC); Vitamin D deficiency; Vitamin B6 deficiency; Iron deficiency; Hypothyroidism (acquired); Metabolic syndromeStart: 84-04-9121OmpyctIttukBetina Pop [facility] Work Phone: [phone] [place] [address] Weight TreatmentStart: 35-98-8063Utblgn Frank Pop [facility] Work Phone: [phone] [place] [address] Weight TreatmentComment on above:Metabolic syndrome (Primary Dx)Start: 05-17-2022 End: 07-97-6002Jaaxkx outpatient visit 25 minutesBetina Pop [facility] Work Phone: [phone] [place] [address] Weight TreatmentComment on above:Atypical eating disorder (Primary Dx); Insulin resistance; Obesity, Class III, BMI 40-49.9 (morbid obesity) (HCC); BMI 40.0-44.9, adult (HCC); Vitamin D deficiency; Vitamin B6 deficiency; Iron deficiency; Hypothyroidism (acquired)Start: 04-15-2022 End: 07-60-7042Fhassc outpatient visit 25 minutesBetina Pop [facility] Work Phone: [phone] [place] [address] Weight TreatmentComment on above:Atypical eating disorder (Primary Dx); Insulin resistance; Obesity, Class III, BMI 40-49.9 (morbid obesity) (HCC); BMI 45.0-49.9, adult (HCC); Vitamin D deficiency; Vitamin B6 deficiency; Iron deficiency; Hypothyroidism (acquired)Start: 03-15-2022 End: 52-63-3856Nddrxd outpatient visit 25 minutesBetina Pop [facility] Work Phone: [phone] [place] [address] Weight TreatmentComment on above:Atypical eating disorder (Primary Dx); Insulin resistance; Obesity, morbid, BMI 50 or higher (HCC); Obesity, Class III, BMI 40-49.9 (morbid obesity) (HCC); BMI 45.0-49.9, adult (HCC); Vitamin D deficiency; Vitamin B6 deficiency; Iron deficiency; Hypothyroidism (acquired); Leg swellingStart: 60-76-9476Cxknbc OnlyBetina Pop CNP Work Phone: [phone] [place] [address] Weight TreatmentComment on above:Obesity, morbid, BMI 50 or higher (HCC)Start: 02-11-2022 End: 58-13-3909Bzpfip outpatient visit 25 minutesBetina Pop CNP Work Phone: [phone] [place] [address] Weight TreatmentComment on above:Atypical eating disorder (Primary Dx); Insulin resistance; Obesity, morbid, BMI 50 or higher (HCC); Obesity, Class III, BMI 40-49.9 (morbid obesity) (HCC); BMI 45.0-49.9, adult (HCC); Vitamin D deficiency; Vitamin B6 deficiency; Iron deficiency; Hypothyroidism (acquired); Leg swellingStart: 01-28-2022 End: 78-72-9999poealggkliFN LUIS FAZIOFacility:S0Nbrin: 01-13-2022 End: 80-23-4969myhchplragJW LUIS FAZIOFacility:N6Dkdyu: 01-06-2022 End: 71-19-0374Xpnhlm outpatient visit 25 minutesBetina Pop CNP Work Phone: [phone] [place] [address] Weight TreatmentComment on above:Atypical eating disorder (Primary Dx); Insulin resistance; Obesity, morbid, BMI 50 or higher (HCC); BMI 50.0-59.9, adult (HCC); Vitamin D deficiency; Vitamin B6 deficiency; Iron deficiency; Other specified hypothyroidism; Depression, unspecified depression typeStart: 18-81-2796PgnqjxPnzkbBetina Pop CNP Work Phone: [phone] [place] [address] Weight TreatmentComment on above:Anxiety and depression; Vitamin D deficiency; Obesity, Class III, BMI 40-49.9 (morbid obesity) (HCC)Start: 11-30-2021 End: 52-17-2616Azktoc outpatient visit 25 minutesLamberto Russo MD Work Phone: [facility] Weight TreatmentComment on above:Atypical eating disorder (Primary Dx); Vitamin D deficiency; Insulin resistance; Vitamin B6 deficiency; Encounter for pre-bariatric surgery counseling and education; Iron deficiency; Obesity, morbid, BMI 50 or higher (HCC); BMI 50.0-59.9, adult (HCC)Start: 10-23-2021 End: 24-84-0755Xsliju outpatient visit 25 minutesLamberto Russo MD Work Phone: [facility] Weight TreatmentComment on above:Atypical eating disorder (Primary Dx); Insulin resistance; Vitamin D deficiency; Vitamin B6 deficiency; Encounter for pre-bariatric surgery counseling and education; Obesity, morbid, BMI 50 or higher (HCC); BMI 50.0-59.9, adult (HCC); Iron deficiency; Hypothyroidism (acquired)Start: 09-09-2021 End: 18-95-2498Colfmr outpatient visit 25 minutesLamberto Russo MD Work Phone: [facility] Weight TreatmentComment on above:Atypical eating disorder (Primary Dx); Insulin resistance; Vitamin D deficiency; Vitamin B6 deficiency; Obesity, morbid, BMI 50 or higher (HCC); BMI 50.0-59.9, adult (HCC); Encounter for pre-bariatric surgery counseling and educationStart: 08-28-2021 End: 98-87-1419Wyuazh outpatient visit 25 minutesEvi Pacheco MD Work Phone: [facility] Women's HealthComment on above:Internal hemorrhoids (Primary Dx); Rectal bleedingStart: 07-31-2021 End: 31-92-0102Wlwtwx outpatient visit 25 minutesLamberto Russo MD Work Phone: [facility] Weight TreatmentComment on above:Atypical eating disorder (Primary Dx); Insulin resistance; Vitamin D deficiency; Vitamin B6 deficiency; Obesity, Class III, BMI 40-49.9 (morbid obesity) (HCC); BMI 45.0-49.9, adult (HCC)Start: 07-10-2021 End: 30-00-8559yqkuxoxcbrYHZMAJojo OWENSohiohealth southeastern medical centergraciela [facility] Womentart: 18-46-6126Xqnrlj Jude Lynch [facility] Physicians PulmonaryComment on above:Screening for viral disease (Primary Dx)Start: 07-03-2021 End: 10-20-6516Melgal outpatient visit 25 minutesLamberto Russo MD Work Phone: [facility] Weight TreatmentComment on above:Atypical eating disorder (Primary Dx); Insulin resistance; Vitamin D deficiency; Vitamin B6 deficiency; Lumbar radiculopathy; Obesity, Class II, BMI 35-39.9; Depression, unspecified depression type; Obesity, Class III, BMI 40-49.9 (morbid obesity) ([facility]); BMI 45.0-49.9, adult ([facility])Start: 06-27-2021 End: 15-60-5252zxrzxitcdaKVOHIThe Christ Hospitaltart: 06-08-2021 End: 84-87-1352Ddbjrx outpatient visit 25 Shellie Pacheco MD Work Phone: [facility] Women's HealthComment on above:Cough (Primary Dx); Anxiety and depressionStart: 06-02-2021 End: 39-81-4085Ibovft outpatient visit 25 minutesLamberto Russo MD Work Phone: [facility] Weight TreatmentComment on above:Atypical eating disorder (Primary Dx); Lumbar radiculopathy; Vitamin D deficiency; Vitamin B6 deficiency; Mild intermittent asthma, unspecified whether complicated; Obesity, Class II, BMI 35-39.9; Other specified hypothyroidism; Depression, unspecified depression type; BMI 45.0-49.9, adult ([facility])Start: 05-29-2021 End: 43-42-7600fhanmicujoRMZMZThe Christ Hospitaltart: 05-05-2021 End: 32-85-3606fxscngwzkgLLJCV ALAN BARKMadison Healthtart: 04-28-2021 End: 11-20-5732Edwaps outpatient visit 25 minutesLamberto Russo MD Work Phone: [facility] Weight TreatmentComment on above:Atypical eating disorder (Primary Dx); Vitamin D deficiency; Vitamin B6 deficiency; Iron deficiency; Hypothyroidism (acquired); Other specified hypothyroidism; Obesity, Class III, BMI 40-49.9 (morbid obesity) ([facility]); BMI 45.0-49.9, adult ([facility]); Lumbar radiculopathy; Patellofemoral stress syndrome, unspecified laterality; Fatty liver; Encounter for screening examination for impaired glucose regulation and diabetes mellitusStart: 04-25-2021 End: 83-28-7124fcqsjdgvrjXQLQYSouthwest Memorial Hospitaltart: 04-23-2021 End: 13-83-3867jgugyqgixuFSQFKSouthwest Memorial Hospitaltart: 04-17-2021 End: 36-82-2874tawdrwkfwpGWLRFMercy Health Fairfield Hospitaltart: 04-14-2021 End: 02-63-7655Smrobossl therapyLamberto Russo MD Work Phone: [facility] Nutrition ServicesComment on above:BMI 45.0-49.9, adult ([facility])Start: 04-14-2021 End: 54-86-8440Ydzcec outpatient new 60 minutesLamberto Russo MD Work Phone: [facility] Weight TreatmentComment on above:Weight gain (Primary Dx); Obesity, Class II, BMI 35-39.9; Atypical eating disorder; Other specified hypothyroidism; Fatigue, unspecified type; Sleep disorder; Migraine with aura and without status migrainosus, not intractable; Depression, unspecified depression type; Elevated LFTs; Diarrhea, unspecified type; Dyspnea, unspecified type; Chronic midline low back pain without sciatica; Chronic pain of both knees; Intestinal malabsorption, unspecified type; BMI 45.0-49.9, adult ([facility]); Exposure to COVID-19 virusStart: 03-24-2021 End: 94-72-8119Rcfhtm outpatient new 30 minutesAlejandra Ying MD Work Phone: [facility]opedic [facility] Sports MedicineComment on above:Gastrocnemius tear, right, initial encounter (Primary Dx)Start: 03-19-2021 End: 83-03-8654kobrsujxxsEILN ROGER [facility] Springfieldtart: 03-18-2021 End: 23-53-7437Tcwjkvefd department patient visitOhioHealth [facility] Start: 03-09-2021 End: 61-67-5237HjxlgdKldmr Mathieu MD Work Phone: NyNanoviUniversity Of Missouri [facility] Care Women's HealthComment on above:Anxiety and depressionStart: 11-12-2020 End: 27-47-9240Mobdkiw encounter procedureEvi Pacheco MD Work Phone: [facility]Start: 11-12-2020 End: 95-12-5655mxvsyamlspORVGLMercy Health Willard Hospitaltart: 11-12-2020 End: 20-86-6025Azqegmdh preventive med est patient 18-39 yrsEvi Pacheco Work Phone: NyNanoviUniversity Of Missouri Health Care Women's HealthComment on above:Annual physical exam (Primary Dx); Other specified hypothyroidism; Anxiety and depressionStart: 78-74-4995fihzrxnkrwWPRD SELFFacility:JAMESStart: 10-10-2020 End: 34-76-7332Abkgow outpatient visit 10 minutesEvi Pacheco Work Phone: NyNanoviUniversity Of Missouri [facility] Care Women's HealthComment on above:Sinusitis, unspecified chronicity, unspecified location (Primary Dx)Start: 10-03-2020 End: 96-01-3453Galprg outpatient visit 25 minutesChrista Sarmiento Work Phone: NyNanoviUniversity Of Missouri [facility] Care Women's HealthComment on above:Atypical eating disorder (Primary Dx); Other specified hypothyroidism; Migraine with aura and without status migrainosus, not intractable; Obesity, Class II, BMI 35-39.9Start: 09-05-2020 End: 93-37-9048Ufknoi Claudia Sarmiento Work Phone: NyNanoviUniversity Of Missouri [facility] Care Women's HealthComment on above:Anxiety and depression (Primary Dx)Start: 09-01-2020 End: 51-94-8721WfbackQxdps Mathieu Work Phone: [facility] Women's HealthComment on above:Other specified hypothyroidismStart: 08-29-2020 End: 40-34-4682Xgdxsq outpatient visit 25 [employer] Work Phone: [facility] Women's HealthComment on above:Atypical eating disorder (Primary Dx); Anxiety and depression; Migraine with aura and without status migrainosus, not intractable; Obesity, Class II, BMI 35-39.9Start: 08-04-2020 End: 27-37-3283rocgjwyubkJREXZMiami Valley Hospitaltart: 08-04-2020 End: 55-86-6581Ojdhvt outpatient visit 25 [employer] Work Phone: [facility] Women's HealthComment on above:Vaginal bleeding (Primary Dx); Dysuria; Other specified hypothyroidismStart: 07-29-2020 End: 87-37-7074Zakmcw outpatient visit 25 [employer] [employer] Work Phone: [facility] Women's HealthComment on above:Atypical eating disorder (Primary Dx); Anxiety and depression; Other specified hypothyroidism; Obesity, Class II, BMI 35-39.9Start: 07-01-2020 End: 33-44-7073Igjglo outpatient visit 25 [employer] Work Phone: [facility] Women's HealthComment on above:Atypical eating disorder; Other specified hypothyroidism; Anxiety and depression; Obesity, Class II, BMI 35-39.9Start: 05-06-2020 End: 87-99-5869Fmzitd outpatient visit 25 [employer] Work Phone: [facility] Women's HealthComment on above:Atypical eating disorder (Primary Dx); Anxiety and depression; Sleep disturbance; Other specified hypothyroidism; Obesity, Class II, BMI 35-39.9Start: 04-23-2020 End: 02-32-5536Gxowys outpatient visit 25 [employer] Work Phone: [facility] Women's HealthComment on above:Hair loss (Primary Dx); Other specified hypothyroidism; Anxiety and depression; Need for influenza vaccinationStart: 03-07-2020 End: 28-77-7339Neworh outpatient visit 25 minutesChrista Sarmiento Work Phone: [facility] CenterComment on above:Atypical eating disorder (Primary Dx); Insulin resistance; Sleep disturbance; Obesity, Class II, BMI 35-39.9Start: 02-08-2020 End: 39-64-8995Kyzntv outpatient visit 25 minutesChrista Sarmiento Work Phone: [facility] HealthComment on above:Weight gain (Primary Dx); Anxiety and depression; Other specified hypothyroidism; Obesity, Class II, BMI 35-39.9Start: 06-38-9594Hfqlrlsixjgr of care [facility] WestComment on above:Care Coordination (BHP)Start: 01-29-2020 End: 92-20-3926Pcwuaqc encounter procedureAsheville Specialty HospitalStart: 12-31-2019 End: 40-92-8279Flvvtkywxisyc procedureAsheville Specialty Hospital Primary Care PhysiciansStart: 65-67-7111Pkazarwgckjq of care [facility] WestComment on above:Care Coordination (BHP)Start: 12-05-2019 End: 33-24-8681Jrhsaux encounter procedureAsheville Specialty HospitalStart: 11-16-2019 End: 22-56-8073Repgra outpatient visit 25 minutesRoseelmer Pacheco Work Phone: [facility] Medical CenterComment on above:Other specified hypothyroidism (Primary Dx); Leg swelling; Anxiety and depressionStart: 03-70-6289Iacfzgmtndca of care [facility] StationComment on above:Care Coordination (BHP) Start: 10-29-2019 End: 97-87-5530Ltmques encounter procedureAsheville Specialty HospitalStart: 17-87-5554Vlltyroufqqc of care [facility] WestComment on above:Care Coordination (BHP)Start: 10-26-2019 End: 83-85-8942Yekskrl encounter procedureRochelle MartinezNyioHealthStart: 10-02-2019 End: 94-94-9192Untrzucsaqbl of care On license of [facility] Primary Care PhysiciansStart: 49-09-9553Uhdrcfhdqtbn of care [facility] HealthComment on above:Care Coordination (BHP)Start: 09-18-2019 End: 84-91-7894Asmldqp encounter procedureRochelle MartinezNyioHealthStart: 79-53-7545Ydhybsfujfhh of care [facility] HealthComment on above:Care Coordination (BHP)Start: 09-11-2019 End: 42-47-2582Tlxznaojhwlnz procedureEvi Pacheco Work Phone: [facility] Medical CenterComment on above:Care coordination BHPStart: 09-11-2019 End: 02-24-1272Psvestu encounter procedureEdgardobarbara MartinezNykavithaHealthStart: 09-06-2019 End: 21-99-3396Kpwyiserrqksh procedurePaandrey Anderson Work Phone: [facility] Provider PsychiatryStart: 09-03-2019 Coordination of care [facility] Comment on above:Care Coordination (BHP)Start: 09-03-2019 End: 61-69-7197Jlkyhxu encounter procedureRochelle BarcenasHealthStart: 08-31-2019 End: 64-06-8114Yuplbxkbqa hospital visit by Kenneth Pacheco Work Phone: [facility] UltrasoundComment on above: LymphadenopathyStart: 08-28-2019 End: 10-04-9780Nlrcdtzoup hospital visit by physicianMagdy Not In System [facility] Radiology External FilmsComment on above:Arrived Start: 69-86-2571Clgytuqnsluj of care [facility] WestComment on above:Care Coordination (BHP)Start: 08-24-2019 End: 76-88-2249Yydrwkx encounter procedureBetenzin MartinezNyioHealthStart: 08-24-2019 End: 26-80-8370Wdbhuw outpatient visit 25 minutesEvi Pacheco Work Phone: [facility] Medical CenterComment on above:Anxiety and depression (Primary Dx); Other specified hypothyroidism; Lymphadenopathy; Leg swellingStart: 85-69-6198Jejjxn-up encounterTeraustyn VargasMercy Health St. Rita's Medical CenterComment on above:Chronic Kidney Disease (Health department follow up)Start: 08-13-2019 End: 16-67-0652Tqbuhek encounter procedureTeraustyn VargasGalion HospitalStart: 06-09-6467Tdej visitTeraustyn Vance marciaMercy Health St. Rita's Medical CenterComment on above:Chronic Care Management ( FPC visits)Start: 08-10-2019 End: 43-10-8338Nqiztny encounter procedureTeraustyn VargasGalion HospitalStart: 04-10-2019 End: 79-99-6675Cjalqf outpatient new 45 minutesEvi Pacheco Work Phone: [facility]'s Medical CenterComment on above:Tenosynovitis of right wrist (Primary Dx); Other specified hypothyroidism; RashStart: 73-29-9593Jmkwbkp encounter procedureLYARANZA EDOUARDKettering Memorial Hospital Urgent [facility] HospitalStart: 01-17-2019 End: 59-75-0900Lbhwvu outpatient visit 25 minutesEmili Edouard Work Phone: [facility] HospitalComhar[facility] hospital on above: Tendonitis of wrist, left (Primary Dx); Pain and swelling of left wristStart: 11-10-2018 End: 11-82-1105Ymmwsfdeus hospital visit by Levar aJmes Work Phone: [facility] Labor & DeliveryStart: 09-01-2018 End: 94-17-0092Lbxnvhcig department patient visitCHNICHOLE Carrillo Flower Hospitaltart: 01-07-2018 End: 76-27-4594Aiadxna encounter procedureLisa Jerniganpomerene hospital:[facility] Start: 11-16-2017 End: 20-49-4037Lakmnqd encounter procedureNEO Mcdonnellpomerene hospital:[facility] Start: 11-15-2017 End: 64-04-5393Iehrozqpb department patient visitBRECESAR Mcdonnellpomerene hospital:[facility] Procedures DateProcedureProcedure DetailPerforming ClinicianStart: 23-94-1341Zewphlfm aspiration abscess hematoma bulla/cystLila Barr MD Work Phone: Start: 86-53-8901Fe abdominal real time w/image limitedLila Barr MD Work Phone: Start: 07-26-2024H/O: surgeryS/P panniculectomyLila Barr MD Work Phone: Start: 29-84-5397Itwnn test visual color cmprsn methLani Barr MD Work Phone: Start: 88-37-8016Bosjq of nicotineLila Barr MD Work Phone: Start: 73-68-4316Tfebr metabolic panel calcium total Marina Vergara MD Work Phone: Start: 58-59-4781Nxc routine ecg w/least 12 lds trcg only w/o i&rSaebom Jai ALATORRE Work Phone: Start: 19-84-9707NSI,APTIMA HPV,AGE GDLNAmy Pop ZHENG Work Phone: Start: 64-98-8958Amusrtlclsc observation [Identifier] in Cervix by Cyto stainMolly Raad LINCOLN Work Phone: Start: 69-72-4545Ertcpqtn to dietetics serviceBruce Julio Cesar Russo MD Work Phone: start: 78-72-6869Qytqc dip stick/tablet rgnt auto w/o microscopyEvi Pacheco Work Phone: Start: 49-32-1405Mn breast uni real time with image limitedEvi Pacheco Work Phone: Start: 72-85-6562CK Breast - bilateral diagnosticEvi Pacheco Work Phone: Start: 79-46-8121FjgpogiolrtGxlcxydn TranscribedStart: 15-05-3715XuwzkvwqstldvlbMhhlrsgl TranscribedStart: 35-00-0173Jqyhyghpxck [Units/volume] in Serum or Plasma by Detection limit <= 0.005 mIU/LNancy Junior Work Phone: Start: 41-52-8632Dzdtrlght (T4) free [Mass/volume] in Serum or PlasmaNancy Junior Work Phone: Start: 87-35-2430Yijfq depression screening assessment Kae RoeStart: 81-21-2771Gascp wrist complete minimum 3 viewsLyaranza SimónJeffy Edouard Work Phone: Plan of Treatment DateCare ActivityDetailAuthorStart: 88-66-6597ISX Vaccines (1 - 1-dose 75+ series)RSV Vaccines (1 - 1-dose 75+ series)[facility] HospitalStart: 06-01[facility]2034 DTaP/Tdap/Td vaccine (3 - Td or Tdap)DTaP/Tdap/Td vaccine (3 - Td or Tdap)[facility] SystemStart: 84-70-2788Tzkladiyf for malignant neoplasm of cervix [facility]Start: 08-19-2025 End: 39-11-1906cwipjtfmog98/05/2026 9:45 AM EST Evaluation [facility] [address], [address] [place] [address] Betina Pop, LATONIA [address] [place], [place] [facility] Weight ManagementStart: 08-19-2025 End: 81-00-0122voyjfkguxa37/05/2026 8:30 AM EST Treatment [facility] [address], [address] [place] [address] Opal Godinez PsyD [address] [place] [address] [facility] Weight ManagementStart: 06-18-2025 End: 50-04-2241Corlnle encounter czsucemti21/11/2024 10:00 AM EST Office Visit [facility] [address] [place] [phone] Luis Viveros DO [address] [place] [address] [facility] OBStart: 06-17-2025 End: 48-07-8053xpqmccjviyOpmwGgwimp Weight ManagementStart: 49-40-1905Wqlwdpf and physical examination, annual for [facility] VisitNyioTrumbull Memorial Hospital Start: 05-15-2025 End: 69-17-0111Wgwmhblkbijc consultation with hhouzwf0505/15/2025 12:00 PM EDT Telemedicine [facility] [address], [address] [place] [address] Opal Godinez, FarzadyD [address] [place], [place] [phone] [facility] Weight ManagementStart: 04-17-2025 End: 57-21-8173Yytbatbneotb consultation with hsqmytk6704/17/2025 2:00 PM EDT Telemedicine [facility] [address], [address] [place] [address] Opal Godinez, FarzadyD [address] [place] [address] [facility] Weight ManagementStart: 04-16-2025 End: 25-59-0383lzsgxlpdco64/02/2025 9:45 AM EDT Evaluation [facility] [address], [address] [place] [address] Betina Pop, DIAGNOSTIC TECHNOLOGIST [address] [place], [place] [facility] Weight ManagementStart: 04-16-2025 End: 87-61-7221gnpnpvohtd82/02/2025 8:30 AM EDT Treatment [facility] [address], [address] [place] [address] Opal Godinez PsyD [address] [place] [address] [facility] Weight ManagementStart: 18-42-4956Kanwumkxc vaccinationNyioHealthStart: 03-12-2025 End: 20-08-7907eabweoibymAokjZkmxff Weight ManagementStart: 02-06-2025 End: 77-76-3283mrdcdvwlwzZfraSkrsah Weight ManagementStart: 01-08-2025 End: 59-02-2398vonltveqimPzmwCohkln Weight ManagementStart: 12-10-2024 End: 60-53-5431vkhddavtyc23/28/2025 9:15 AM EDT Evaluation [facility] [address], [address] [place] [address] Betina Pop CNP [address] [place], [place] [facility] Weight ManagementStart: 09-05-2024 End: 34-85-1589Fbkwyik encounter arbdytmgv07/22/2025 10:00 AM EST Office Visit [facility] [address] [place] [address] [place]ila Barr [place] [phone] [place] [address] [address] [place] [address] Panni/abdo DOS 06/28/24 Us asp 08/29/2024[facility] Surgical SpecialistsComment on above:Panni/abdo DOS 06/28/24 Us asp 08/29/2024Start: 08-07-2024 End: 99-05-2562Rwyqbzo encounter emomrtuwe10/24/2024 9:15 AM EST Office Visit [facility] [address] [place] [address] Lila Barr MD [phone] [place] [address] Post op- Panni/abdo DOS 06/28/24[facility] Surgical SpecialistsComment on above:Post op- Panni/abdo DOS 06/28/24Start: 08-01-2024 End: 36-04-4525Jbwdxhv encounter dokgqtols97/18/2024 10:15 AM EST Office Visit [facility] [address] [place] [address] Lila Barr MD [address] [place] [address] Post op- Panni/abdo DOS 06/28/24[facility] Surgical SpecialistsComment on above:Post op- Panni/abdo DOS 06/28/24Start: 07-26-2024 End: 45-85-5885Zybaitdep to same day surgery zrsquz2707/26/2024 9:00 AM EST - 07/26/2024 12:25 PM EST Surgery [facility] [address] [place] [address] [place] [phone] [place] [address] PANNICULECTOMY, ABDOMINOPLASTY, BIOPATCH AROUND TAMY, INCISIONAL WOUNDVAC, ( PREVENA) , TAP BLOCK NEEDS FIRST ASSISTSTAZ ORComment on above:PANNICULECTOMY, ABDOMINOPLASTY, BIOPATCH AROUND TAMY, INCISIONAL WOUND VAC, ( PREVENA) , TAP BLOCK NEEDS FIRST ASSISTStart: 07-26-2024 End: 90-19-3521Tffqfagohb afzdsyizytye12/12/2024 9:00 AM EST Anesthesia Event [facility] [address] [place] [address] Pedrito Haro MD [address] [place] [address] [facility] Start: 07-26-2024 End: 37-13-1041Jbkksyeo skin abd infraumbilical panniculectomyLakehealth [facility] Center HospitalStart: 32-85-2141Wtgayczimt hospital visit by uqcqbfnpf32/12/2024 9:00 AM EST Hospital Encounter [facility] [address] [place] [address] [place] [address] [facility] [address] [place] [address] [facility] ORStart: 07-16-2024 End: 22-82-9688Pxwicdsj Screen, UrineBon [facility] Work Phone: Comment on above:Expected: 07/16/2024, Expires: Occurrences starting 07/16/2024 until 07/16/2024Start: 06-14-2024 End: 36-91-3064Fyphgnn encounter rshsjxamc44/31/2024 10:00 AM EDT Office Visit [facility] [address] [place] [phone] Lisa Lord PA [address] [place], [facility] ArrivedNOMS BCP OBComment on above:ArrivedStart: 06-13-2024 History and physical examination, annual for health maintenanceS[facility] Visit [facility]Start: 05-16-2024 End: 81-02-9638Yoahpmsylzyd consultation with bkietnc3805/16/2024 1:15 PM EDT Telemedicine [facility] [address], [address] [place], [place] [id number] Betina Pop, DIAGNOSTIC TECHNOLOGIST [address] [facility] [address] [place] [address] [facility] Weight ManagementStart: 93-42-7866KKBVV-19 Vaccine ( season)COVID-19 Vaccine ( season)Bon [facility]Start: 76-63-4918Cotrgjoim vaccinationOhioHealthStart: 03-19-2024 End: 36-33-9311Ohheahlzkwnq consultation with xwjwvvm9103/19/2024 10:45 AM EDT Telemedicine [facility] [address], [address] [place] [address] Betina Pop, DIAGNOSTIC TECHNOLOGIST [address] [address] [facility] Weight ManagementStart: 63-65-9748Srjozizkg vaccinationFlu vaccine (#1)Bon [facility]Start: 01-18-2024 End: 57-95-6289qygwphchur13/05/2024 10:15 AM EDT Evaluation [facility] [address], [address] [place] [address] Betina Pop, DIAGNOSTIC TECHNOLOGIST [address] [address] [facility] Weight ManagementStart: 11-03-2023 End: 43-83-8034Txwvmucxtixw consultation with ibkqxov7911/03/2023 9:00 AM EDT Telemedicine [facility] [address], [address] [place] [address] Betina Pop, DIAGNOSTIC TECHNOLOGIST [address] [address] [facility] Weight ManagementStart: 09-01-2023 End: 78-59-6720Zjlneqtzploj consultation with oxbiapp4809/01/2023 9:00 AM EST [facility] [address] [place] [address] Betina Pop, LATONIA [address] [address] [facility] Weight TreatmentStart: 07-13-2023 End: 32-36-4063Uvfhwlk encounter mfsgqyjwb46/29/2023 8:30 AM EST Office Visit [facility] [address] [place] [address] Betina Pop, DIAGNOSTIC TECHNOLOGIST [address] [address] [facility] Weight TreatmentStart: 05-09-2023 End: 44-94-6012Dtvbcjedwvch consultation with ubwohtx9705/09/2023 8:30 AM EDT Telemedicine [facility] [address] [place] [phone] Betina Pop, DIAGNOSTIC TECHNOLOGIST [address] [place] [address] [facility] Weight TreatmentStart: 96-75-2287Zoyejojpr vaccinationNyioTrumbull Memorial Hospital Start: 03-15-2023 End: 77-44-9128Jmrhmwplyrxx consultation with xhhmrin0303/15/2023 10:30 AM EDT Telemedicine [facility] [address] [place] [address] Betina Pop, DIAGNOSTIC TECHNOLOGIST [address] [place] [address] [facility] Weight TreatmentStart: 01-21-2023 End: 86-83-8608Dtpwibh encounter /09/2023 9:00 AM EDT Office Visit [facility] [address] [place] [address] Betina Pop, DIAGNOSTIC TECHNOLOGIST [address] [place] [address] [facility] Weight TreatmentStart: 12-10-2022 End: 92-41-9697Miigaixcdmll consultation with gtvvsvo8112/10/2022 Telemedicine Betina Jimenez CNP [address] [facility] [address] [place] [address] [facility] Weight TreatmentStart: 67-30-2633Lwrilxt and physical examination, annual for [facility] VisitOhioHealthStart: 92-70-2557Wcmavqt vaccination [facility]Start: 31-15-1529Xvicbbvecqw for diphtheria, pertussis, and tetanus Tetanus/Diphtheria/Pertussis (2 - Td or Tdap)[facility]Start: 10-27-2022 End: 05-72-1143Yzuxzsdjdaej consultation with grkuqyu7010/27/2022 Telemedicine Betina Jimenez CNP [address] [address] [facility] Weight TreatmentStart: 09-08-2022 End: 79-78-2111Mujgrtyoltgn consultation with tmjxfvm8009/08/2022 Telemedicine Betina Jimenez CNP [address] [address] [facility] Weight TreatmentStart: 07-27-2022 End: 17-48-4137Ymueore encounter lfarhpmsp42/13/2022 Office Visit Betina Jimenez CNP [address] [facility] [address] [place] [address] [facility] Start: 06-18-2022 End: 04-47-0231Tkxzmygubviu consultation with hmutbkv9806/18/2022 Telemedicine Betina Jimenez CNP [address] [facility] [address] [place] [address] [facility] Weight TreatmentStart: 05-17-2022 End: 46-77-2887Iujdixbontho consultation with rddmrxu0505/17/2022 Telemedicine Betina Jimenez, LATONIA [address] [address] [facility] Weight TreatmentStart: 33-10-8735Qpsjaiuhj vaccinationOhioHealthStart: 04-15-2022 End: 08-01-9220Rjjeigc encounter prvlqwjah86/01/2022 Office Visit Betina Jimenez CNP [address] [address] [facility] Start: 03-15-2022 End: 74-89-0451Vtnaajw encounter unrmjxjjz21/01/2022 Office Visit Betina Jimenez CNP [address] [address] [facility] Start: 02-11-2022 End: 42-77-9422Izihynk encounter /30/2022 Office Visit Betina Jimenez CNP [address] [address] [facility] Start: 01-06-2022 End: 03-93-6985Rkphahn encounter stjzqdyww20/25/2022 Office Visit Lamberto Mckenna MD [address] [address] [facility] Start: 79-26-5180Iziigth and physical examination, annual for health maintenance Wellness VisitOhioHealthStart: 09-09-2021 End: 97-77-6806Jdgkjyvvchqj consultation with emwcbau3209/09/2021 Telemedicine Lamberto Mckenna MD [address] [address] [facility] Start: 07-31-2021 End: 05-53-9272Wwvvwdirnxkm consultation with hzjkktk5907/31/2021 Telemedicine Lamberto Mckenna MD [address] [address] [facility] Start: 07-10-2021 End: 63-93-1862Wdybrlq encounter zbsqkzevf52/26/2021 Appointment Sleep Medicine Lamberto Russo MD [address] [address] [facility] Sleep LabStart: 07-06-2021 End: 63-09-4382Ouxwbmw encounter kamczbkpx84/22/2021 Office Visit Lab Vega Sage MD [facility] [place] [address] COVID Assessment CenterStart: 98-09-3546Joqpsxccrx screening using PHQ-9 (Patient Health Questionnaire 9) scoreDepression Screening/Follow-Up (PHQ-2/9)[facility]Start: 06-08-2021 End: 06-53-0580Dsnsncsiadbi consultation with khbqxyk1806/08/2021 Telemedicine Primary Care Evi Pacheco MD [facility] [employer] [address] [place] [address] [facility] Start: 06-02-2021 End: 92-84-6619Jsinowbaguzy consultation with chayswl5206/02/2021 Telemedicine Lamberto Mckenna MD [address] [address] [facility] Start: 05-13-2021 End: 85-71-6988Ckhtkm VisitOhMercy [facility] Primary [facility]'s [facility] HospitalStart: 05-05-2021 End: 47-10-4679Hrstpok encounter kdxowerto49/21/2021 Appointment Pulmonology Lamberto Russo MD [address] [address] [facility] Pulmonary LabStart: 05-01-2021 End: 60-78-9333Tchzunf encounter innsvspzz66/17/2021 Office Visit Lab Lamberto Russo MD [address] [address] COVID Assessment CenterStart: 04-28-2021 End: 87-57-1062Tpredikjrdtt consultation with [facility] Weight TreatmentStart: 79-24-1078Ytnfwkxyj vaccinationSequential Influenza Vaccine (#1)[facility]HealthStart: 04-14-2021 End: 70-21-7891Loxvlfynp wqugast4304/14/2021 Nutrition Nutrition Alem Barnett, [facility] Nutrition ServicesStart: 04-14-2021 End: 80-42-6893Evnxaia encounter rbjiscevz51/31/2021 Office Visit Nutrition Lamberto Russo MD [address] [address] [phone] [facility] Weight TreatmentStart: 04-14-2021 End: 90-18-8794Fxmqbiffl yeiowvs2704/14/2021 Clinical Support [facility] Weight TreatmentStart: 78-60-8170Wmgzixuowo Remission Assessment (PHQ9)Depression Remission Assessment (PHQ9)[facility]Start: 12-08-2020 Depression Remission Assessment (PHQ9)Depression Remission Assessment (PHQ9) [facility]Start: 10-21-2020 End: 86-75-3475Fttwuo VisitNyioTrumbull Memorial Hospital Primary Care Women's HealthStart: 10-03-2020 End: 04-28-8522Lqwknw Visit10/03/2020 Office Visit Primary Care Christa Sarmiento, DIAGNOSTIC TECHNOLOGIST [address] [place] [address] [phone] [facility]Start: 09-26-2020 End: 22-81-3087Wzldfx Visit09/26/2020 Office Visit Primary Care Christa Sarmiento, DIAGNOSTIC TECHNOLOGIST [address] [place] [address], [place] [address] [phone] [facility] CenterStart: 08-29-2020 End: 56-25-1857Vklqss Visit08/29/2020 Office Visit Primary Care Christa Sarmiento, LATONIA [address] [facility] [place] [address] [phone] [facility] CenterStart: 07-29-2020 End: 78-72-1056Lhgssu Visit07/29/2020 Office Visit Primary Care Christa Sarmiento, LATONIA [address] [place] [address], [place] [address] [phone] [facility] CenterStart: 06-10-2020 End: 97-96-6629Hbkrog Visit06/10/2020 Office Visit Primary Care Christa Sarmiento CNP [address] [place] [address] [phone] [facility] CenterStart: 05-22-2020 End: 91-78-4020Vaqxkygzmkrp02/08/2020 Telemedicine Nutrition Evi Pacheco MD [address] [place] [address] [phone] [facility] Nutritional ServicesStart: 05-06-2020 End: 52-99-6718Rojsjm Visit05/06/2020 Office Visit Primary Care Christa Sarmiento, LATONIA [address] [place] [address] [phone] [facility] CenterStart: 04-24-2020 End: 09-09-2232Vuahfnislkkv51/10/2020 Telemedicine Nutrition Evi Pacheco MD [address] [place] [address] [phone] [facility] Nutritional ServicesStart: 85-27-6993Ivmynrplt vaccination givenOhioHealthStart: 85-27-5215Erahzsxmsg screening using PHQ-9 (Patient Health Questionnaire 9) scoreDEPRESSION SCREENING (PHQ9)[facility] Start: 03-27-2020 End: 62-11-9670Kazyahcdakdv25/13/2020 Telemedicine Nutrition Christa Sarmiento, [address] [address] [phone] Evi Pacheco MD [address] [place] [address] [phone] [facility] Nutritional ServicesStart: 02-12-2020 Influenza vaccination givenSequential Influenza Vaccine (#1)[facility] HospitalComment on above:Postponed from 04/15/2019 (Patient Refused)Start: 02-08-2020 End: 62-66-3948Oyjnblakgpbv measurementLipoprotein NMR Lab Routine Weight gain Obesity, Class II, BMI 35-39.9 Expected: 02/08/2020, Expires: 02/05/2021 [facility]Comment on above:Expected: 02/08/2020, Expires: 02/05/2021tart: 02-08-2020 End: 35-66-0138Xvuejm Visit02/08/2020 Office Visit Primary Care Christa Sarmiento, [address] [address] [facility] Primary Critical access hospitalStart: 12-21-2019 End: 13-78-6725Kwojid Visit12/21/2019 Office Visit Primary Care Evi Pacheco MD [address] [place] [phone] [address] [facility]: [facility]2019 End: 34-82-7858Lsfoni Visit11/16/2019 Office Visit Primary Care Evi Pacheco MD [address] [place], [place] [address], [place] [address] [phone] [facility]: 11-[facility]-2019 End: 06-59-6832Susnhayckcp29/19/2020 Appointment Cardiology Evi Pacheco MD [address] [place] [address] [phone] [facility] Cardiac Non-Invasive LabStart: 10-05-2019 End: 93-02-0653Uiygmm Visit10/05/2019 Office Visit Primary Care Evi Pacheco MD [address] [place] [address] [phone] [facility]: 08-31-2019 End: 48-55-5328Apsxvdvcagd51/17/2020 Appointment Radiology Evi Pacheco MD [address] [place] [address] [phone] [facility] MammographyStart: 06-11-2019 End: 49-99-8663Nkjuxu Visit06/11/2019 Office Visit Primary Care Evi Pacheco MD [address] [place] [address] [phone] [facility] CenterStart: 47-16-7135Cjpogjhhg vaccination given [facility]Start: 94-23-8419Sgxkkrwib for malignant neoplasm of cervixOhioHealth Start: 90-29-9656Hwodmacdfyp for human papillomavirusHPV Vaccines (1 - Risk 3- dose SCDM series)[facility] HospitalStart: 75-14-0614Eklkergnm for malignant neoplasm of cervixPap SmearNyioHealthStart: 45-64-2098Ixjunpofnmvftz of herpes zoster vaccineZoster Vaccines (1 of 2)[facility]Start: 17-09-1107Jvpyaapvx B vaccinationHepatitis B Vaccines (1 of 3 - 19+ 3-dose series)[facility]Start: 10-46-1086Hmeivrlgm B vaccine (1 of 3 - 19+ 3-dose series)Hepatitis B vaccine (1 of 3 - 19+ 3-dose series)[facility]Start: 60-41-5643Qusdzrtcufrc vaccinationPneumococcal Vaccine (1 of 2 - PCV)[facility]Start: 2006 Pneumococcal Vaccine: Ped or At-Risk (1 of 2 - PCV)Pneumococcal Vaccine: Ped or At-Risk (1 of 2 - PCV)[facility]HealthStart: 01-67-8355Ikvbgpnky C antibody, confirmatory testHepatitis C ScreeningOhioHealthStart: 41-21-0205Kyhyqqeyt C screeningHepatitis C screenBon [facility]Start: 33-79-2369MSOIZ-19 Vaccine (1 of 2)COVID-19 Vaccine (1 of 2)[facility]HealthStart: 12-60-2214ELAMV-19 Vaccine (1)COVID-19 Vaccine (1)[facility]HealthStart: 73-46-2125WTC screeningInova Fairfax Hospitalart: 55-23-1273Wugxsirxt vaccinationVaricella Vaccines (1 of 2 - 13+ 2-dose series)[facility]HealthStart: 91-75-5682Psdvyhpen vaccine (1 of 2 - 13+ 2-dose series)Varicella vaccine (1 of 2 - 13+ 2-dose series)[facility] Hospitalart: 92-95-8196URMEE-19 Vaccine (1)COVID-19 Vaccine (1)[facility] Start: 07-45-3864Bmphluvwtr ScreenDepression [facility] Start: 56-14-8533Byzvsszfmqqd Vaccine: Ped or At-Risk (1 - PCV)Pneumococcal Vaccine: Ped or At-Risk (1 - PCV)[facility]Start: 14-81-8586Ihujjasxbdef Vaccine: Ped or At-Risk (1 of 2 - PCV)Pneumococcal Vaccine: Ped or At-Risk (1 of 2 - PCV)[facility]HealthStart: 66-41-2782Gdjvsmmefday Vaccine: Ped or At-Risk (1 of 4 - PCV13)Pneumococcal Vaccine: Ped or At-Risk (1 of 4 - PCV13)[facility]HealthStart: 27-00-5065CVVRI-19 Vaccine (#1)COVID-19 Vaccine (#1)[facility]Start: 1990 History and physical examination, annual for [facility] Visit [facility]Start: 81-48-3162Zfsfrno-mumps-rubella vaccinationMMR Vaccines (1 of 1 - Standard series)[facility] HospitalStart: 53-64-2392YVTQW-19 Vaccine (#1)COVID-19 Vaccine (#1)[facility] HospitalStart: 83-09-5979Ligaouahu for malignant neoplasm of cervixPAP SMEAROhioHealthStart: 06-03-9391Evqwlos vaccinationTETANUS EVERY 10 YR [facility] End: 62-79-7713Xmww-thyroid antibody measurementThyroid Antibody Group Lab Routine Other Specified Hypothyroidism 1 Occurrences starting 04/14/2021until 04/14/2022hioHealthComment on above:1 Occurrences starting 04/14/2021 until 04/14/2022 End: 68-13-1124Sbgoblfj identified Aer cx Nom (Unsp spec)Urine Aerobic Culture Microbiology Routine Dysuria 1 Occurrences starting 08/04/2020 until 08/04/2021 [facility] HospitalComment on above:1 Occurrences starting 08/04/2020 until 08/04/2021 End: 40-30-9173Lyczb glucose - POCTBlood glucose - POCT Point of Care Testing Routine One Time for 1 Occurrences starting 07/27/2024 until 07/27/2024on [facility] DaytonComment on above:One Time for 1 Occurrences starting 07/27/2024 until 07/27/2024 End: 61-44-1761SWQ panel - Blood by Automated countCBC Lab Routine Iron deficiency 1 Occurrences starting 10/23/2021 until 10/23/2022OhioHealthComment on above:1 Occurrences starting 10/23/2021 until 10/23/2022 End: 07-01-7646YGK panel - Blood by Automated countCBC Lab Routine Iron deficiency 1 Occurrences starting 02/06/2025 until 02/06/2026OhioHealthComment on above:1 Occurrences starting 02/06/2025 until 02/06/2026 End: 54-56-4515Qiodlq Associated HLA_DQ TypingCeliac Associated HLA_DQ Typing Lab Routine Diarrhea, unspecified type 1 Occurrences starting 04/14/2021 until 04/14/2022hioHealthComment on above:1 Occurrences starting 04/14/2021 until 04/14/2022 End: 30-78-4923Vnmtql disease screenCeliac Serology [place] Panel Lab Routine Diarrhea, unspecified type 1 Occurrences starting 04/14/2021 until 04/14/2022 [facility]HealthComment on above:1 Occurrences starting 04/14/2021 until 04/14/2022 End: 32-09-5291Lzpheyiff trachomatis rRNA assayChlamydia/GC/Trichomonas Amplified RNA Microbiology Routine Vaginal bleeding Dysuria 1 Occurrences s tarting 08/04/2020 until 08/04/2021OhioHealthComment on above:1 Occurrences starting 08/04/2020 until 08/04/2021 End: 82-70-2847Xovggcwpk (Vitamin B12) [Mass/volume] in Serum or PlasmaVitamin B12 Lab Routine Intestinal malabsorption, unspecified type 1 Occurrences starting 04/14/2021 until 04/14/2022hioHealthComment on above:1 Occurrences starting 04/14/2021 until 04/14/2022 End: 79-06-4129Ndovvmdig (Vitamin B12) [Mass/volume] in Serum or PlasmaVitamin B12 Lab Routine Insulin resistance 1 Occurrences starting 10/23/2021 until 10/23/2022OhioHealthComment on above:1 Occurrences starting 10/23/2021 until 10/23/2022 End: 52-89-0257Masrrjmwq (Vitamin B12) [Mass/volume] in Serum or PlasmaVitamin B12 Lab Routine Insulin resistance 1 Occurrences starting 11/30/2021 until 11/30/2022OhioHealthComment on above:1 Occurrences starting 11/30/2021 until 11/30/2022 End: 70-90-5460Ujggvimst (Vitamin B12) [Mass/volume] in Serum or PlasmaVitamin B12 Lab Routine Insulin resistance 1 Occurrences starting 06/17/2022 until 06/17/2023OhioHealthComment on above:1 Occurrences starting 06/17/2022 until 06/17/2023 End: 97-53-5656Quhrivcbw (Vitamin B12) [Mass/volume] in Serum or PlasmaVitamin B12 Lab Routine Insulin resistance 1 Occurrences starting 02/06/2025 until 02/06/2026OhioHealthComment on above:1 Occurrences starting 02/06/2025 until 02/06/2026 End: 73-52-7317Bxfuyusz blood count with white cell differential, manualCBC and Differential Lab Routine Weight gain 1 Occurrences starting 04/14/2021 until 04/14/2022[facility] Work Phone: comment on above:1 Occurrences starting 04/14/2021 until 04/14/2022 End: 47-57-7594Jsbisxax blood count with white cell differential, manualCBC and Differential Lab Routine Atypical eating disorder 1 Occurrences starting 11/30/2021 until 11/30/2022OhioHealthComment on above:1 Occurrences starting 11/30/2021 until 11/30/2022 End: 38-29-6070Qoyohwgn blood count with white cell differential, manualCBC and Differential Lab Routine Iron deficiency 1 Occurrences starting 06/17/2022 until 06/17/2023OhioHealthComment on above:1 Occurrences starting 06/17/2022 until 06/17/2023 End: 59-91-2049Xlevtcul blood count with white cell differential, manualCBC and Differential Lab Routine Iron deficiency 1 Occurrences starting 07/27/2022 until 07/27/2023OhioHealthComment on above:1 Occurrences starting 07/27/2022 until 07/27/2023 End: 86-23-2289Vwlpkbma blood count with white cell differential, manualCBC and Differential Lab Routine Iron deficiency 1 Occurrences starting 10/27/2022 until 10/28/2023[facility] Work Phone: comment on above:1 Occurrences starting 10/27/2022 until 10/28/2023 End: 58-58-2373Znskgxja PFT with Pre and Post Bronchodilator volumes and dlco Complete PFT with Pre and Post Bronchodilator volumes and dlco PFT Routine Dyspnea, unspecified type 1 Occurrences starting 04/14/2021 until 04/14/2022 [facility]HealthComment on above:1 Occurrences starting 04/14/2021 until 04/14/2022 End: 95-04-7513Bbosplemfexzx metabolic 2000 panel - Serum or PlasmaComprehensive Metabolic Panel Lab Routine Weight gain 1 Occurrences starting 04/14/2021 until 04/14/2022hioHealthComment on above:1 Occurrences starting 04/14/2021 until 04/14/2022 End: 11-50-9068Ymcwtbhcwllrj metabolic 2000 panel - Serum or PlasmaComprehensive Metabolic Panel Lab Routine Atypical eating disorder 1 Occurrences starting 10/23/2021 until 10/23/2022OhioHealthComment on above:1 Occurrences starting 10/23/2021 until 10/23/2022 End: 67-81-5279Yvpngeakfrbpf metabolic 2000 panel - Serum or PlasmaComprehensive Metabolic Panel Lab Routine Atypical eating disorder 1 Occurrences starting 11/30/2021 until 11/30/2022OhioHealthComment on above:1 Occurrences starting 11/30/2021 until 11/30/2022 End: 27-14-2552Desyrksfexelv metabolic 2000 panel - Serum or PlasmaComprehensive Metabolic Panel Lab Routine Insulin resistance 1 Occurrences starting 06/17/2022 until 06/17/2023[facility] Work Phone: comment on above:1 Occurrences starting 06/17/2022 until 06/17/2023 End: 55-44-1145Pifdpevlczvdw metabolic 2000 panel - Serum or PlasmaComprehensive Metabolic Panel Lab Routine Insulin resistance 1 Occurrences starting 02/06/2025 until 02/06/2026[facility] Work Phone: Comment on above:1 Occurrences starting 02/06/2025 until 02/06/2026ytology Cervical or vaginal smear or scraping studyPap Smear Pathology and Cytology Routine Well woman exam with routine gynecological exam Ordered: 06/14/2024[facility] Work Phone: comment on above:Ordered: 06/14/2024 End: 55-54-1016Vetrbley measurementPancreatic Elastase, Fecal Lab Routine Diarrhea, unspecified type 1 Occurrences starting 04/14/2021until 04/14/2022 OhioHealthComment on above:1 Occurrences starting 04/14/2021 until 04/14/2022 End: 96-13-9733Cheqi Fat, QuantitativeFecal Fat, Quantitative Lab Routine Diarrhea, unspecified type 1 Occurrences starting 04/14/2021 until 04/14/2022 OhioHealthComment on above:1 Occurrences starting 04/14/2021 until 04/14/2022 End: 62-05-0880Kfonfvja [Mass/Vol]Ferritin Lab Routine Hair loss 1 Occurrences starting 04/23/2020 until 04/23/2021OhioHealthComment on above:1 Occurrences starting 04/23/2020 until 04/23/2021 End: 83-43-6480Ysijfpvl [Mass/volume] in Serum or PlasmaFerritin Lab Routine Intestinal malabsorption, unspecified type 1 Occurrences starting 04/14/2021 un til 04/14/2022hioHealthComment on above:1 Occurrences starting 04/14/2021 until 04/14/2022 End: 31-52-7652Ofzpqppc [Mass/volume] in Serum or PlasmaFerritin Lab Routine Iron deficiency 1 Occurrences starting 10/23/2021 until 10/23/2022[facility] Comment on above:1 Occurrences starting 10/23/2021 until 10/23/2022 End: 27-45-2871Ecpyllpe [Mass/volume] in Serum or PlasmaFerritin Lab Routine Iron deficiency 1 Occurrences starting 11/30/2021 until 11/30/2022[facility] Comment on above:1 Occurrences starting 11/30/2021 until 11/30/2022 End: 03-14-5230Pygvfxpr [Mass/volume] in Serum or PlasmaFerritin Lab Routine Iron deficiency 1 Occurrences starting 06/17/2022 until 06/17/2023[facility] Comment on above:1 Occurrences starting 06/17/2022 until 06/17/2023 End: 79-38-8324Jgqpdwyd [Mass/volume] in Serum or PlasmaFerritin Lab Routine Iron deficiency 1 Occurrences starting 10/27/2022 until 10/28/2023[facility] Comment on above:1 Occurrences starting 10/27/2022 until 10/28/2023 End: 62-16-5399Phqwtgbi [Mass/volume] in Serum or PlasmaFerritin Lab Routine Iron deficiency 1 Occurrences starting 02/06/2025 until 02/06/2026[facility] Comment on above:1 Occurrences starting 02/06/2025 until 02/06/2026 End: 33-18-7724Dtvevh [Mass/volume] in Serum or PlasmaFolate Lab Routine Intestinal malabsorption, unspecified type 1 Occurrences starting 04/14/2021 until 08/31/2022OhioHealthComment on above:1 Occurrences starting 04/14/2021 until 04/14/2022 End: 25-66-9774Yqnxha [Mass/volume] in Serum or PlasmaFolate Lab Routine Iron deficiency 1 Occurrences starting 10/27/2022 until 10/28/2023OhioHealthComment on above:1 Occurrences starting 10/27/2022 until 10/28/2023 End: 09-91-9053Eouoij [Mass/volume] in Serum or PlasmaFolate Lab Routine Iron deficiency 1 Occurrences starting 02/06/2025 until 02/06/2026OhioHealthComment on above:1 Occurrences starting 02/06/2025 until 02/06/2026 End: 80-19-4821Ejde T4 [Mass/Vol]T4, Free Lab Routine Other specified hypothyroidism Hair loss 1 Occurrences starting 04/23/2020 until 04/23/2021 [facility]HealthComment on above:1 Occurrences starting 04/23/2020 until 04/23/2021 End: 41-12-8209Bdqh T4 [Mass/Vol]T4, Free Lab Routine Other specified hypothyroidism 1 Occurrences starting 04/10/2019 until 04/10/2020[facility] Comment on above:1 Occurrences starting 04/10/2019 until 04/10/2020 End: 84-07-7450Cgkqrpb Tolerance, Standard (75g)Glucose Tolerance, Standard (75g) Lab Routine Encounter for screening examination for impaired glucose regulation and diabetes mellitus 1 Occurrences starting 04/28/2021 until 04/28/2022hioHealthComment on above:1 Occurrences starting 04/28/2021 until 04/28/2022 End: 16-64-7247BjC6t (Bld) [Mass fraction]Hemoglobin A1c Lab Routine Annual physical exam 1 Occurrences starting 11/12/2020 until 11/12/2021[facility] Comment on above:1 Occurrences starting 11/12/2020 until 11/12/2021HbA1c (Bld) [Mass fraction]Hemoglobin A1c Lab Routine Annual physical exam 11/12/2020 10:57 AM EDTOhiThe [facility] End: 39-27-7834Ecsmzuvakb A1c/Hemoglobin.total in BloodHemoglobin A1c Lab Routine Weight gain 1 Occurrences starting 04/14/2021 until 04/14/2022[facility] Comment on above:1 Occurrences starting 04/14/2021 until 04/14/2022 End: 36-05-8683Lgcsgvqsvi A1c/Hemoglobin.total in BloodHemoglobin A1c Lab Routine Insulin resistance 1 Occurrences starting 02/06/2025 until 02/06/2026 [facility]HealthComment on above:1 Occurrences starting 02/06/2025 until 02/06/2026 End: 78-81-6211Myrjnaljf C antibody measurementHepatitis C Antibody Lab Routine Annual physical exam 1 Occurrences starting 11/12/2020 until 11/12/2021 [facility]HealthComment on above:1 Occurrences starting 11/12/2020 until 11/12/2021 Hepatitis C antibody measurementHepatitis C Antibody Lab Routine Annual physical exam 11/12/2020 10:57 AM EDTOCleveland [facility] papilloma virus DNA [Presence] in Unspecified specimen by Probe with amplificationHPV DNA probe, amplified Microbiology Routine Well woman exam with routine gynecological exam Ordered: 06/14/2024[facility] HealthcareComment on above:Ordered: 06/14/2024 End: 35-86-7857OHVHJKQP PACU OXYGEN THERAPY PROTOCOLInitiate PACU Oxygen Therapy Protocol Respiratory Care Routine Continuous until discontinued starting 07/26/2024on [employer] Phone: Comment on above:Continuous until discontinued starting 07/26/2024 End: 42-78-2162Ryqaogf [Units/volume] in Serum or PlasmaInsulin, Total Lab Routine Weight gain 1 Occurrences starting 04/14/2021 until 04/14/2022[facility] Comment on above:1 Occurrences starting 04/14/2021 until 04/14/2022 End: 99-80-3789Wohlvwk [Units/volume] in Serum or PlasmaInsulin, Total Lab Routine Encounter for screening examination for impaired glucose regulation and diabetes mellitus 1 Occurrences starting 04/28/2021 until 04/28/2022[facility] Comment on above:1 Occurrences starting 04/28/2021 until 04/28/2022 End: 32-24-3711Gpmg and Iron binding capacity panel - Serum or PlasmaIron and TIBC Lab Routine Intestinal malabsorption, unspecified type 1 Occurrences starting 04/14/2021 until 04/14/2022hiDCealthComment on above:1 Occurrences starting 04/14/2021 until 04/14/2022 End: 74-98-4360Vqds and Iron binding capacity panel - Serum or PlasmaIron and TIBC Lab Routine Iron deficiency 1 Occurrences starting 10/23/2021 until 10/23/2022OhioHealthComment on above:1 Occurrences starting 10/23/2021 until 10/23/2022 End: 37-07-7840Rldm and Iron binding capacity panel - Serum or PlasmaIron and TIBC Lab Routine Iron deficiency 1 Occurrences starting 11/30/2021 until 11/30/2022OhioHealthComment on above:1 Occurrences starting 11/30/2021 until 11/30/2022 End: 08-11-9036Hwlv and Iron binding capacity panel - Serum or PlasmaIron and TIBC Lab Routine Iron deficiency 1 Occurrences starting 06/17/2022 until 06/17/2023OhioHealthComment on above:1 Occurrences starting 06/17/2022 until 06/17/2023 End: 14-77-5315Nlrw and Iron binding capacity panel - Serum or PlasmaIron and TIBC Lab Routine Iron deficiency 1 Occurrences starting 10/27/2022 until 10/28/2023OhioHealthComment on above:1 Occurrences starting 10/27/2022 until 10/28/2023 End: 49-83-3662Ujvm and Iron binding capacity panel - Serum or PlasmaIron and TIBC Lab Routine Iron deficiency 1 Occurrences starting 02/06/2025 until 02/06/2026OhioHealthComment on above:1 Occurrences starting 02/06/2025 until 02/06/2026 End: 66-15-5894Rgaaq 1996 panel - Serum or PlasmaLipid Panel Lab Routine Insulin resistance 1 Occurrences starting 02/06/2025 until 02/06/2026OhioHealthComment on above:1 Occurrences starting 02/06/2025 until 02/06/2026Lipoproteins measurementLipoprotein NMR Lab Routine Weight gain Obesity, Class II, BMI 35- 39.9 02/08/2020 11:31 AM EDTOhioHealth End: 36-35-3773Quqtwnjbhmas measurementLipoprotein NMR Lab Routine Intestinal malabsorption, unspecified type 1 Occurrences starting 04/14/2021 until 04/14/2022hioHealthComment on above:1 Occurrences starting 04/14/2021 until 04/14/2022 End: 26-65-9213Yoipnmenywsr measurementLipoprotein NMR Lab Routine Insulin resistance 1 Occurrences starting 06/17/2022 until 06/17/2023OhioHealthComment on above:1 Occurrences starting 06/17/2022 until 06/17/2023 End: 45-02-6339Otyii function tests - generalLiver Fibrosis, Fibro Test Lab Routine Elevated LFTs 1 Occurrences starting 04/14/2021 until 04/14/2022 OhioHealthComment on above:1 Occurrences starting 04/14/2021 until 04/14/2022 End: 57-97-7546Ymwbrggml [Mass/volume] in Serum or PlasmaMagnesium Level Lab Routine Intestinal malabsorption, unspecified type 1 Occurrences starting 2020 until 04/14/2022hioHealthComment on above:1 Occurrences starting 04/14/2021 until 04/14/2022 End: 95-91-4500AB Breast - right diagnosticMammography Diagnostic Right Imaging Routine Lymphadenopathy 1 Occurrences starting 08/24/2019 until 10/22/2020 [facility]HealthComment on above:1 Occurrences starting 08/24/2019 until 10/22/2020 End: 28-11-7653Svlpxnprrbz peptide.B prohormone N-Terminal [Mass/volume] in Serum or PlasmaNT Pro BNP Lab Routine Dyspnea, unspecified type 1 Occurrences starting 04/14/2021 until 04/14/2022hioHealthComment on above:1 Occurrences starting 04/14/2021 until 04/14/2022Neisseria gonorrhoeae nucleic acid detection Chlamydia/Gonorrhoeae Amplified RNA Microbiology Routine Vaginal bleeding Dysuria Ordered: 08/04/2020OhioHealthComment on above:Ordered: 08/04/2020Oxygen therapy [Minimum Data Set]Initiate Oxygen Therapy Protocol Respiratory Care Routine As Needed until discontinued starting 07/26/2024 [employer] Phone: Comment on above:As Needed until discontinued starting 07/26/2024athology studySurgical Pathology Lab Routine 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 Release Upon Ordering for 1 Occurrences starting 07/26/2024 mentionComment on above:Release Upon Ordering for 1 Occurrences starting 07/26/2024 End: 27-37-0771Wemvxrbfu, urinePregnancy, urine Lab Routine Tomorrow AM for 1 Occurrences starting 07/27/2024 until 07/27/2024on [facility] HealthComment on above:Tomorrow AM for 1 Occurrences starting 07/27/2024 until 07/27/2024 End: 89-09-1766Ofoqtqssz 5 phosphate levelVitamin B6 Lab Routine Intestinal malabsorption, unspecified type 1 Occurrences starting 04/14/2021until 04/14/2022hioHealthComment on above:1 Occurrences starting 04/14/2021 until 04/14/2022 End: 42-97-1315Vbeenpmdn 5 phosphate levelVitamin B6 Lab Routine Vitamin B6 deficiency 1 Occurrences starting 10/23/2021 until 10/23/2022OhioHealthComment on above:1 Occurrences starting 10/23/2021 until 10/23/2022 End: 47-47-6370Gixjztkry 5 phosphate levelVitamin B6 Lab Routine Vitamin B6 deficiency 1 Occurrences starting 11/30/2021 until 11/30/2022OhioHealthComment on above:1 Occurrences starting 11/30/2021 until 11/30/2022 End: 29-42-5907Jinharnob 5 phosphate levelVitamin B6 Lab Routine Vitamin B6 deficiency 1 Occurrences starting 06/17/2022 until 06/17/2023OhioHealthComment on above:1 Occurrences starting 06/17/2022 until 06/17/2023 End: 59-08-6952Bvrmklzjy 5 phosphate levelVitamin B6 Lab Routine Vitamin B6 deficiency 1 Occurrences starting 02/06/2025 until 02/06/2026OhioHealthComment on above:1 Occurrences starting 02/06/2025 until 02/06/2026 End: 29-74-9753AJKE-CoV-2 (COVID-19) RdRp gene [Presence] in Respiratory specimen by IVORY with probe detectionCOVID-19, Molecular Microbiology Routine Exposure to COVID-19 virus 1 Occurrences starting 04/14/2021 until 04/14/2022 [facility]Comment on above:1 Occurrences starting 04/14/2021 until 04/14/2022 End: 09-46-0306DUWQ-CoV-2 (COVID-19) RdRp gene [Presence] in Respiratory specimen by IVORY with probe detectionCOVID-19, Molecular Microbiology Routine Screening for viral disease 1 Occurrences starting 07/03/2021 until 07/03/2022 [facility] Work Phone: Comment on above:1 Occurrences starting 07/03/2021 until 07/03/2022 End: 76-21-2892Mxzigqtz chest X-rayXR Chest AP/PA and LAT Imaging Routine Dyspnea, unspecified type 1 Occurrences starting 04/14/2021 until 04/14/2022 [facility]Comment on above:1 Occurrences starting 04/14/2021 until 04/14/2022 End: 35-95-2932RXZETHPG PATHOLOGY REPORTSURGICAL PATHOLOGY REPORT Lab Routine Once for 1 Occurrences starting 07/26/2024 until 07/26/2024on [facility] DaytonComment on above:Once for 1 Occurrences starting 07/26/2024 until 07/26/2024 End: 51-04-3905Cphvbeiy measurementVitamin B1, Whole Blood Lab Routine Intestinal malabsorption, unspecified type 1 Occurrences starting 04/14/2021 until 04/14/2022hioHealthComment on above:1 Occurrences starting 04/14/2021 until 04/14/2022 End: 16-14-3479Tjezlwoehjq [Units/volume] in Serum or PlasmaTSH Lab Routine Other Specified Hypothyroidism 1 Occurrences starting 04/14/2021 until 04/14/2022hioHealthComment on above:1 Occurrences starting 04/14/2021 until 04/14/2022 End: 90-02-5122Dtjrjzetfdi [Units/volume] in Serum or PlasmaTSH Lab Routine Hypothyroidism (acquired) 1 Occurrences starting 04/28/2021 until 04/28/2022 [facility] Work Phone: comment on above:1 Occurrences starting 04/28/2021 until 04/28/2022 End: 45-97-2620Erbrwolteef [Units/volume] in Serum or PlasmaTSH with Reflex Free T4 Lab Routine Hypothyroidism (acquired) 1 Occurrences starting 10/23/2021 unti l 10/23/2022[facility]HealthComment on above:1 Occurrences starting 10/23/2021 until 10/23/2022 End: 19-49-3102Afyigjljhdd [Units/volume] in Serum or PlasmaTSH with Reflex Free T4 Lab Routine Atypical eating disorder 1 Occurrences starting 11/30/2021 until 11/30/2022[facility] Work Phone: comyrzs on above:1 Occurrences starting 11/30/2021 until 11/30/2022 End: 84-40-9032Hocabpqwjlh [Units/volume] in Serum or PlasmaTSH Lab Routine Other specified hypothyroidism 1 Occurrences starting 01/06/2022 until [facility]: comment on above:1 Occurrences starting 01/06/2022 until 01/07/2023 End: 79-12-5342Xwqxchodcvt [Units/volume] in Serum or PlasmaTSH Lab Routine Hypothyroidism (acquired) 1 Occurrences starting 04/15/2022 until 04/16/2023 [facility] Work Phone: comment on above:1 Occurrences starting 04/15/2022 until 04/16/2023Thyrotropin [Units/volume] in Serum or PlasmaTSH Lab Routine Hypothyroidism (acquired) 04/15/2022 10:[facility] End: 90-96-5560Lkxzdzeswqo [Units/volume] in Serum or PlasmaTSH Lab Routine Hypothyroidism (acquired) 1 Occurrences starting 06/17/2022 until 06/17/2023 [facility] Occurrences starting 06/17/2022 until 06/17/2023 End: 64-52-7436Wkxnjeruwmw [Units/volume] in Serum or PlasmaTSH with Reflex Free T4 Lab Routine Hypothyroidism (acquired) 1 Occurrences starting 07/12/2022 unti l 07/12/2023[facility] Work [facility]: comdsou on above:1 Occurrences starting 07/12/2022 until 07/12/2023 End: 47-85-8442Kfgwjxkwhcf [Units/volume] in Serum or PlasmaTSH Lab Routine Hypothyroidism (acquired) 1 Occurrences starting 07/27/2022 until 07/27/2023 [facility] Work Phone: comlfeq on above:1 Occurrences starting 07/27/2022 until 07/27/2023 End: 64-36-4937Rbinynoikcd [Units/volume] in Serum or PlasmaTSH Lab Routine Hypothyroidism (acquired) 1 Occurrences starting 10/27/2022 until 10/28/2023 [facility] Occurrences starting 10/27/2022 until 10/28/2023 End: 00-68-4469Vpcdbpbsfok [Units/volume] in Serum or PlasmaTSH Lab Routine Hypothyroidism (acquired) 1 Occurrences starting 01/27/2023 until 01/28/2024 [facility] Work Phone: comment on above:1 Occurrences starting 01/27/2023 until 01/28/2024 End: 77-94-9207Zgvhmxvkvew [Units/volume] in Serum or PlasmaTSH with Reflex Free T4 Lab Routine Hypothyroidism (acquired) 1 Occurrences starting 02/06/2025 unti l 02/06/2026[facility]Comment on above:1 Occurrences starting 02/06/2025 until 02/06/2026 End: 24-75-0985Oqewmhvsr (T4) free [Mass/volume] in Serum or PlasmaT4, Free Lab Routine Other Specified Hypothyroidism 1 Occurrences starting 04/14/2021 until 04/14/2022h[facility]HealthComment on above:1 Occurrences starting 04/14/2021 until 04/14/2022 End: 45-49-7429Sjedvhohb (T4) free [Mass/volume] in Serum or PlasmaT4, Free Lab Routine Hypothyroidism (acquired) 1 Occurrences starting 04/28/2021 until 04/28/2022hioHealthComment on above:1 Occurrences starting 04/28/2021 until 04/28/2022 End: 15-14-3990Oocfhlfzd (T4) free [Mass/volume] in Serum or PlasmaT4, Free Lab Routine Other specified hypothyroidism 1 Occurrences starting 01/06/2022 until 01/07/2023[facility]Comment on above:1 Occurrences starting 01/06/2022 until 01/07/2023 End: 05-70-5286Kmviqflcv (T4) free [Mass/volume] in Serum or PlasmaT4, Free Lab Routine Hypothyroidism (acquired) 1 Occurrences starting 04/15/2022 until 04/16/2023[facility]HealthComment on above:1 Occurrences starting 04/15/2022 until 04/16/2023Thyroxine (T4) free [Mass/volume] in Serum or PlasmaT4, Free Lab Routine Hypothyroidism (acquired) 04/15/2022 10:49 AM EDTOhiThe [facility] End: 22-49-7250Feeuzaqxr (T4) free [Mass/volume] in Serum or PlasmaT4, Free Lab Routine Hypothyroidism (acquired) 1 Occurrences starting 06/17/2022 until 06/18/2023[facility]HealthComment on above:1 Occurrences starting 06/17/2022 until 06/18/2023 End: 51-72-8800Etjlvofci (T4) free [Mass/volume] in Serum or PlasmaT4, Free Lab Routine Hypothyroidism (acquired) 1 Occurrences starting 07/27/2022 until 07/28/2023[facility]HealthComment on above:1 Occurrences starting 07/27/2022 until 07/28/2023 End: 81-39-6905Uldwibjge (T4) free [Mass/volume] in Serum or PlasmaT4, Free Lab Routine Hypothyroidism (acquired) 1 Occurrences starting 10/27/2022 until 10/28/2023[facility]HealthComment on above:1 Occurrences starting 10/27/2022 until 10/28/2023 End: 62-63-6777Ktbbaztky (T4) free [Mass/volume] in Serum or PlasmaT4, Free Lab Routine Hypothyroidism (acquired) 1 Occurrences starting 01/27/2023 until 01/28/2024[facility]HealthComment on above:1 Occurrences starting 01/27/2023 until 01/28/2024 End: 00-26-2601Bwqnvvydlvgv ultrasonography of pelvisUS Transvaginal Imaging STAT Vaginal bleeding 1 Occurrences starting 08/04/2020 until 08/04/2021 [facility]Comment on above:1 Occurrences starting 08/04/2020 until 08/04/2021 Trichomonas vaginalis Amplified RNATrichomonas vaginalis Amplified RNA Microbiology Routine Vaginal bleeding Dysuria Ordered: 08/04/2020[facility] Comment on above:Ordered: 08/04/2020 End: 76-27-6947Tumbsecmqxkmqvyq (T3) [Mass/volume] in Serum or PlasmaT3 Lab Routine Other Specified Hypothyroidism 1 Occurrences starting 04/14/2021 until 04/14/2022hioHealthComment on above:1 Occurrences starting 04/14/2021 until 04/14/2022 End: 91-59-2077Srmyazjziadkqnnq (T3) [Mass/volume] in Serum or PlasmaT3 Lab Routine Hypothyroidism (acquired) 1 Occurrences starting 04/28/2021 until 04/28/2022hioHealthComment on above:1 Occurrences starting 04/28/2021 until 04/28/2022 End: 91-12-5215Eusniisqjjngsgjb (T3) [Mass/volume] in Serum or PlasmaT3 Lab Routine Other specified hypothyroidism 1 Occurrences starting 01/06/2022 until 01/06/2023[facility]Comment on above:1 Occurrences starting 01/06/2022 until 01/06/2023 End: 50-15-9745Jmznohwujmcjlarm (T3) [Mass/volume] in Serum or PlasmaT3 Lab Routine Hypothyroidism (acquired) 1 Occurrences starting 04/15/2022 until 04/15/2023[facility]HealthComment on above:1 Occurrences starting 04/15/2022 until 04/15/2023Triiodothyronine (T3) [Mass/volume] in Serum or PlasmaT3 Lab Routine Hypothyroidism (acquired) 04/15/2022 10:49 AM EDTOhiDCeal End: 64-08-0576Ceiwhcuuiwinncwz (T3) [Mass/volume] in Serum or PlasmaT3 Lab Routine Hypothyroidism (acquired) 1 Occurrences starting 06/17/2022 until 06/17/2023[facility]HealthComment on above:1 Occurrences starting 06/17/2022 until 06/17/2023 End: 52-79-1853Bfmxysaofkrprhxj (T3) [Mass/volume] in Serum or PlasmaT3 Lab Routine Hypothyroidism (acquired) 1 Occurrences starting 07/27/2022 until 07/27/2023[facility]HealthComment on above:1 Occurrences starting 07/27/2022 until 07/27/2023 End: 88-35-2356Ifhwbfuuuyakbjnf (T3) [Mass/volume] in Serum or PlasmaT3 Lab Routine Hypothyroidism (acquired) 1 Occurrences starting 10/27/2022 until 10/28/2023[facility]HealthComment on above:1 Occurrences starting 10/27/2022 until 10/28/2023 End: 82-37-6632Emtuojtivnrsrojd (T3) [Mass/volume] in Serum or PlasmaT3 Lab Routine Hypothyroidism (acquired) 1 Occurrences starting 01/27/2023 until 01/28/2024OhioHealthComment on above:1 Occurrences starting 01/27/2023 until 01/28/2024 End: 10-63-7947CCK QnTSH Lab Routine Other specified hypothyroidism Hair loss 1 Occurrences starting 04/23/2020 until 04/23/2021[facility]HealthComment on above:1 Occurrences starting 04/23/2020 until 04/23/2021 End: 50-27-0068PFX QnTSH with Reflex Free T4 Lab Routine Other specified hypothyroidism 1 Occurrences starting 07/29/2020 until 07/29/2021[facility] Comment on above:1 Occurrences starting 07/29/2020 until 07/29/2021 End: 86-76-5661MQM QnTSH Lab Routine Other specified hypothyroidism 1 Occurrences starting 04/10/2019 until 04/09/2020[facility]HealthComment on above:1 Occurrences starting 04/10/2019 until 04/09/2020 End: 03-74-2099Ecaliubcqrdlulc of right breastUS Breast Right Complete Imaging Routine Lymphadenopathy 1 Occurrences starting 08/24/2019 until 08/24/2020 [facility]Comment on above:1 Occurrences starting 08/24/2019 until 08/24/2020 End: 05-22-8896Sbaapyclte duplex venous leg leftUltrasound duplex venous leg left Vascular Ultrasound Routine Leg swelling 1 Occurrences starting 08/24/2019 until 10/22/2020OhioHealthComment on above:1 Occurrences starting 08/24/2019 until 10/22/2020 End: 78-23-1219Fetzw [Mass/volume] in Serum or PlasmaUric Acid Lab Routine Intestinal malabsorption, unspecified type 1 Occurrences starting 04/14/2021 u ntil 04/14/2022hioHealthComment on above:1 Occurrences starting 04/14/2021 until 04/14/2022 End: 42-51-7495EC Guidance for fine needle aspiration of Unspecified body region US ASP ABSCESS/HEMATOMA/BULLA/CYST Imaging Routine Abdominal wall seroma, subsequent encounter 1 Occurrences starting 08/30/2024 until 08/30/2024on [place] [facility] HealthComment on above:1 Occurrences starting 08/30/2024 until 08/30/2024 End: 33-68-9841BZ scan of upper abdomenUS Abdomen Limited Study Imaging Routine Elevated LFTs 1 Occurrences starting 04/14/2021 until 04/14/2022[facility] Comment on above:1 Occurrences starting 04/14/2021 until 04/14/2022 End: 24-42-9328Njdlylh D, 25-hydroxy measurementVitamin D, Total, 25-OH Lab Routine Intestinal malabsorption, unspecified type 1 Occurrences starting 04/14/2021 until 04/14/2022hioHealthComment on above:1 Occurrences starting 04/14/2021 until 04/14/2022 End: 00-08-0917Dmouxij D, 25-hydroxy measurementVitamin D, Total, 25-OH Lab Routine Vitamin D deficiency 1 Occurrences starting 10/23/2021 until 10/23/2022 [facility] Work Phone: comment on above:1 Occurrences starting 10/23/2021 until 10/23/2022 End: 87-05-4861Knfwdew D, 25-hydroxy measurementVitamin D, Total, 25-OH Lab Routine Vitamin D deficiency 1 Occurrences starting 11/30/2021 until 11/30/2022 [facility]Comment on above:1 Occurrences starting 11/30/2021 until 11/30/2022 End: 57-47-0578Tuiyvvt D, 25-hydroxy measurementVitamin D, Total, 25-OH Lab Routine Vitamin D deficiency 1 Occurrences starting 06/17/2022 until 06/17/2023 [facility]Comment on above:1 Occurrences starting 06/17/2022 until 06/17/2023 End: 46-51-2856Bvnxthj D, 25-hydroxy measurementVitamin D, Total, 25-OH Lab Routine Vitamin D deficiency 1 Occurrences starting 02/06/2025 until 02/06/2026 [facility]Comment [facility] above:1 Occurrences starting 02/06/2025 until 02/06/2026 End: 07-12-0488UG Knees Bilateral WB OA 3 ViewsXR Knees Bilateral WB OA 3 Views Imaging Routine Chronic Pain Of Both Knees 1 Occurrences starting 04/14/2021 until 08/31/2022[facility]HealthComment on above:1 Occurrences starting 04/14/2021 until 04/14/2022 End: 27-09-6054AS Lumbar Spine 2-3 Views (Standard)XR Lumbar Spine 2-3 Views (Standard) Imaging Routine Chronic Midline Low Back Pain Without Sciatica1 Occurrences starting 04/14/2021 until 2OhioHealthComment on above:1 Occurrences starting 04/14/2021 until 04/14/2022 Immunizations Immunization DateImmunizationNotesCare JgldilzcCxcagoea38-83-5812chojkwdxe, injectable, quadrivalent, preservative freeUpstate Golisano Children's HospitalAebbbycNqieIyuzfz82-35-8200woz vacc wx7177-79 6mos up,PF, sdv (FLUZONE QUAD) injectionUpstate Golisano Children's Hospital 22-30-2712kkjlcpdhv virus vaccine, unspecified formulationSage Memorial Hospitalta Lizzy [facility], Edwin ShawUlkeGlqbjr70-99-0755niusqjaqd virus vaccine, unspecified formulationUpstate Golisano Children's HospitalZixnsioNtbhEbsbbk47-04-9817qqmfxlxpt virus vaccine, whole virusConemaugh Meyersdale Medical CenterLfpgOvuxfk04-69-5995lwnvcmb toxoid, reduced diphtheria toxoid, and acellular pertussis vaccine, adsorbedUpstate Golisano Children's HospitalKdnpduoIakeJaxbzh69-93-1812ffjqtorpy virus vaccine, whole virusUpstate Golisano Children's Hospital Payers DatePayer CategoryPayerPolicy [id number] (Managed Care) .[id number][place]E COMMUNITY PLAN [place] [employer] [employer] PLAN [id number] 2021- Present [phone] [address] [place] [address] [id number] [id number] 2019 [id number] 2019Medicaid PARAMOUNT MANAGED MEDICAID PARAMOUNT ADVANTAGE MEDICAID [id number] 2018-[id number] MedicaidPARAMOUNT MANAGED MEDICAID PARAMOUNT ADVANTAGE MEDICAID [id number] 2018-Present [phone] [address] [place] [id number] 2019MedicaidPARAMOUNT MANAGED MEDICAID PARAMOUNT ADVANTAGE MEDICAID [id number] 2018-Present [phone] [place] [id number] [id number] 2019Medicaidxxxxxxxxxxx [id number] LjfzablK50270312-4780-81-0615Vbce-vavGKZ57-51-4323Bkcvrgc06283254280467-77-8220 [id number] 2..1.207485.3.579.[id number] 2..1.906225.3.579.2.66839-91-0464Bdolqqw0878070 2..1.916332.3.579.2.57121-79-3114Qovwuwf12406419 2..1.334831.3.57[id number] 2..1.800816.3.579.2.8[id number] 2.0.1.698169.3.57[id number] 2.16.840.1.970063.3.57[id number] 2.16.840.1.554076.3.579.2.79177-75-8465Lrqxnvo684595136 2.16.840.1.336096.3.579.2.21207-60-0525Ufwwyct168421010 2.16.840.1.879377.3.579.2.51522-13-4552Fkbijpq273297583 2.16.840.1.901631.3.579.2.[id number] 2.16.840.1.182772.3.579.2.57282-43-4739Otejvnx629138624 2.16.840.1.800660.3.579.2.45442-12-6085Wznvkuq188034567 2.16.840.1.726245.3.579.2.13189-91-6860Eymhife920930660 2.16.840.1.595798.3.57[id number] 2.16.840.1.342803.3.57[id number] 2.16.840.1.624904.3.579.2.06684-68-4399Qddqnmb209767632 2.16.840.1.256949.3.579.2.03188-58-3083Eclnswu031112960 2.16.840.1.855454.3.579.2.81243-52-5687Psphgqm9001243 2.16.840.1.546059.3.579.2.84768-16-6024Vkoiyre3697567 2.16.840.1.030906.3.579.2.03367-06-9292Mgdwwkd658684149 2.16.840.1.049168.3.579.2.28640-97-1291Nrfzjjk671645619 2.16.840.1.014204.3.579.2.85214-64-5426Tvtskjf374993215 2.16.840.1.519193.3.579.2.59765-68-5910Atsmjzr465688596 2.16.840.1.050238.3.579.2.76115-90-1731Bqyvyid379949896 2.16.840.1.681309.3.579.2.49256-56-8961Ftcsiwv854504842 2.16.840.1.373116.3.579.2.82255-51-8172Mlqpuvf1512623 2.16.840.1.232976.3.579.2.619342-92-0279Dhrfnac791924 2.16.840.1.594684.3.579.2.840793-80-7243Tcjpzjr08920244 2.16.840.1.150012.3.579.2.29247-04-4718Dgxzjkr12772823 2.16.840.1.489104.3.579.2.06558-81-1302Liqzryc54250448 2.16.840.1.276678.3.579.2.19045-84-2193Debayhe44659890 2.16.840.1.896592.3.579.2.11074-07-2757Srendec561759925 2.16.840.1.378336.3.579.2.60236-77-7514Nznwhhi687658123 2.16.840.1.403091.3.579.2.93034-95-1985Rwnthjn194378725 2.16.840.1.878372.3.579.2.88123-39-7558Maohmug502642610 2.16.840.1.802900.3.579.2.01949-35-0774Yyfknfu344309254 2.16.840.1.786331.3.579.2.39114-67-3843Znmiffr493259783 2.16.840.1.812271.3.579.2.25917-88-1465Xdcscyq798609749 2.16.840.1.382497.3.579.2.19946-56-3686Yswxtdi558085053 2.16.840.1.392724.3.579.2.44060-34-9856Smfughm231331246 2.16.840.1.563073.3.579.2.83389-68-7906Wumqzcg525125065 2.16.840.1.872243.3.579.2.32769-66-1356Abxwdgx681278693 2.16.840.1.993176.3.579.2.64626-15-0245Fkhtsin810502004 2.16.840.1.936471.3.579.2.95350-72-0948Mzjucaf475025013 2.16.840.1.138249.3.579.2.08222-89-3056Jasdnnd674117281 2.16.840.1.069365.3.579.2.08534-37-2276Hnkunqv160571226 2.16.840.1.264322.3.579.2.34306-72-0149Ewzdfgd858793143 2.16.840.1.581855.3.579.2.06173-16-0407Djqnfhc100060334 2.16.840.1.674835.3.579.2.78132-48-8878Lenebvp091074892718 Social History DateTypeDetailFacilityStart: 04-10-2019 End: 12-35-9222Ikpnwdl smoking status NHISNever smokerOhioHealthStart: 04-10-2019 End: 41-40-4960Ggduqbp intakeLifetime non-drinker (finding)[facility]HealthStart: 26-16-4525Iqiaaqj SDOH Alcohol Adwezsitg5FnmvVqynvcGeffl: 03-13-2240Jke Assigned At BirthNot on fileOhioHealthStart: 11-20-2021 End: 26-10-4865Lvyfnbep to SARS-CoV-2 (event)Not sureOhioHealthStart: 10-13-2021 End: 11-67-0583Jgmttsps to SARS-CoV-2 (event)Unable to assessOhioHealthStart: 04-23-2020 End: 21-79-2522Kvqjigh use and exposureNever usedOhioHealthStart: 07-29-2020 End: 32-92-7187Qrebmmf intakeCurrent drinker of alcohol (finding)[facility] Start: 07-29-2020 End: 34-41-1318Noagqhv SDOH Alcohol Nrppkicrv8IrkaIvtychCovcl: 07-29-2020 End: 91-65-9644Uiqtmvy SDOH Alcohol Std Jjocbt06HjsuFiztloFammf: 06-26-2018 [facility]Start: 04-09-2019 End: 33-31-5869Yntbovcwd pack-yearsOhioHealthStart: 07-01-2020 End: 03-67-0944Wvpqsdp Use Disorder Identification Test - Consumption [AUDIT-C] [facility]HealthHow often to you have a drink containing alcohol?Monthly or less [facility]Start: 58-22-3723Smx many standard drinks containing alcohol do you have on a typical day?Not askedOhioHealthStart: 54-16-3903Wuyzww identity Identifies as female gender (finding)[facility]Start: 08-17-9628Uhwryd orientationHeterosexual (finding)OhioHealthTobao smoking status NHISTobacco smoking consumption unknownNONV HealthcareStart: 69-63-0276Kpxibmd Commentvery very rarelyBon [facility]ours [facility] Health Goals DatePatient GoalDesired Activity/StatePersonal health goalComment on above: 04/14/21 Plan menus 3 days at a time. Log food in [employer] pal. Comment on above: 04/14/21 Plan menus 3 days at a time. Log food in [employer] pal. Clinical Notes 03-25-2021 to 06-17-2025 Note Date & SlnmLzneXnpwdyau29-57-5569 NoteChief Complaint Patient presents with Medical Weight Management [place]: Pt who is a Body mass index is 33.5 kg/m . Patient's history of diet, exercise, sleep, stress and appetite control reviewed and confirmed with patient, please see the medical claims representative's note. HPI: Patient here today for recheck [...] volume control dosed at lunchtime. She will also continue with current dose of Zoloft at nighttime [...] with symptoms but she is reluctant due to some history of diarrhea in the past. She [...] daily as needed Reasons: visible water retention. levothyroxine (SYNTHROID, LEVOTHROID) 150 MCG tablet T (more content not included)...[facility]11-03-2025 History of Present illness Narrative* Betina Pop, DIAGNOSTIC TECHNOLOGIST - 06/17/2025 9:54 AM EST Chief Complaint Patient presents with Medical Weight Management [place]: Pt who is a Body mass index is 33.5 kg/m . Patient's history of diet, exercise, sleep, stress and appetite control reviewed and confirmed withpatient, please see the medical claims representative's note. HPI: Patient here today for recheck [...] lb 4.8 oz) SpO2 99% BMI 33.50 kg/m Physical Exam Vitals and nursing note [...] Rationale: Overweight (Findings) BMI documented in this hhxifnrpcJhfmCofaud03-26-6324 EarleAurora Mendez was scheduled for a virtual behavioral health appointment within the medical weight management clinic. This psychologist waited 16 minutes but she did not show to the appointment. AUTHENTICATED BY OPAL GODINEZ, ON 05/15/2025 12:16:[address] [place], [place] [address]10-01-2025 History of Present illness Narrative* Opal Godinez PsyD - 05/15/2025 12:16 PM EDT Aurora Mendez was scheduled for a virtual behavioral health appointment within the medical weight management clinic. This psychologist waited 16 minutes but she did not show to the appointment. documented in this kicaymxpnVsmvNvcwuw28-07-4955 NoteWeit Management Behavioral Health Appointment DATE OF SERVICE: 04/20/25 PATIENT: Aurora Mendez : 1985 PSYCHOLOGIST: Opal Godinez PsyD START TIME: 2:00 PM END TIME: 2:27 PM Initial Visit for: [x] Medical Weight Management [] Surgical Weight Management [] Surgical Weight Management - Post-op Modality of Care Delivery for this Visit: [x] Dchf-zh-Pwvd/In Person [] Virtual Telehealth Dshm-wu-Mkal Virtual Visit Consent Statement: I discussed risks, benefits and alternatives of telemedicine consultation with the patient (and any accompanying persons) including the risks that the patient's personal health details and medical records will be discussed over interactive video/audio/telecommunication technology, may be recorded, and that there are inherent diagnostic limitations compared to qpss-iz-abls evaluations. The patient elected to proceed with the telemedicine consultation. The patient was located alone in their parked vehicle and this provider was located in the medical office. Presenting Concerns/Interventions: Aurora is a 39 y.o. [1] female who initially worked with Dr. Russo, as part of the [facility], to address weight from March 2021 to December 2021. Aurora's weight management care was transferred to nurse practitioner, Betina Pop, in December 2021. Auroar discussed increased anxiety, because her boyfriend lost his job and he has been unhelpful with housework. He recently accepted a new position and will be starting in several weeks. Aurora expressed her frustration of her boyfriend's pattern of losing jobs. She has told him he must engage in counseling and medication. While he agreed, Aurora was frustrated, because she would need to schedule the services. Empathy and validation were provided. Reframing of the responsibilities was used to encourage boundary setting and acceptance of scheduling. Ways to reduce Aurora's stress was explored. She discussed a desire to have improved sleep without interruptions from children. Aurora was encouraged to set clear expectations to her children and boyfriend. She was encouraged to focus on improving her sleep for the next month. Aurora attempted to continue the session while driving to pick up worker her child. The psychologist informed her that services would not be provided while she is driving. Aurora was unable to continue the visit. The visit was summarized and it was agreed to continue treatment at the next visit. Mental Status: Aurora appeared appropriately groomed and casually dressed for the appointment. Mood was normal and affect was congruent. She was alert during the appointment. She was oriented in to person, place, time, and situation. No hallucinations or delusions were evidenced. Rate of speech was normal. Thought content was appropriate and thought process was goal-directed. Her insight was adequate. Plan: Aurora will return for follow up in one month. Aurora agreed to work on the following: improve sleep. Areas to be addressed next session include: continue development of stress management skills Opal Godinez PsyD Psychologist AUTHENTICATED BY OPAL GODINEZ, ON 04/20/2025 21:54:23[facility]09-06-[facility] History of Present illness Narrative* Opal Godinez PsyD - 04/20/2025 9:42 PM EDT Images from the original note were not included. Weight Management Behavioral Health Appointment DATE OF SERVICE: 04/20/25 PATIENT: Aurora Mendez : 1985 PSYCHOLOGIST: Opal Godinez PsyD START TIME: 2:00 PM END TIME: 2:27 PM Initial Visit for: [x] Medical Weight Management [] Surgical Weight Management [] Surgical Weight Management - Post-op Modality of Care Delivery for this Visit: [x] Wwnh-nr-Fyyk/In Person [] Virtual Telehealth Xktl-gn-Ttey Virtual Visit Consent Statement: I discussed risks, benefits and alternatives of telemedicine consultation with the patient (and any accompanying persons) including the risks that the patient's personal health details and medical records will be discussed over interactive video/audio/telecommunication technology, may be recorded, and that there are inherent diagnostic limitations compared to ctcv-qg-ihia evaluations. The patient elected to proceed with the telemedicine consultation. The patientwas located alone in their parked vehicle and this provider was located in the medical office. Presenting Concerns/Interventions: Aurora is a 39 y.o. [1] female who initially worked with Dr. Russo, as part of the [facility], to address weight from March 2021 to December 2021. Aurora's weight management care was transferred to nurse practitioner, Betina Pop, in December 2021. Aurora discussed increased anxiety, because her boyfriend lost his job and he has been unhelpful with housework. He recently accepted a new position and will be starting in several weeks. Aurora expressed her frustration of her boyfriend's pattern of losing jobs. She has told him he must engage in c ounseling and medication. While he agreed, Aurora was frustrated, because she would need to schedule the services. Empathy and validation were provided. Reframing of the responsibilities was used to encourage boundary setting and acceptance of scheduling. Ways to reduce Aurora's stress was explored. She discussed a desire to have improved sleep without interruptions from children. Aurora was encouraged to set clear expectations to her children and boyfriend. She was encouraged to focus on improving her sleep for the next month. Aurora attempted to continue the session while driving to pick upher child. The psychologist informed her that services would not be provided while she is driving. Aurora was unable to continue the visit. The visit was summarized and it was agreed to continue treatment at the next visit. Mental Status: Aurora appeared appropriately groomed and casually dressed for the appointment. Mood was normal andaffect was congruent. She was alert during the appointment. She was oriented in to person, place, time, and situation. No hallucinations or delusions were evidenced. Rate of speech was normal. Thought content was appropriate and thought process was goal-directed. Her insight was adequate. Plan: Aurora will return for follow up in one month. Aurora agreed to work on the following: improve sleep. Areas to be addressed next session include: continue development of stress management skills Opal Godinez PsyD Psychologist documented in this [id number] NoteChief Complaint Patient presents with - Medical Weight Management [place]: Pt who is a Body mass index is 32.83 kg/m . Patient's history of diet, exercise, sleep, stress and appetite control reviewed and confirmed with patient, please see the medical claims representative's note. HPI: Patient here today for recheck through the medical weight management program. Patient denies any increase in cravings and hunger since last appointment. Energy levels are reasonable. Sleep is reasonable. Patient feels she is still doing well adhering to the dietary protocols as ordered since last appointment but states she has not been exercising much due to working a lot of hours and stress at home. She is up almost 2 pounds since last appointment but states that she also worked a 12-hour shift last night and drove to this appointment today. She feels that this contributes to her weight gain. Medications were reviewed today and no other problems noted. Stress levels have been increased as her boyfriend lost his job and so she has needed to work overtime to accommodate for their finances. This has been really stressful for her but she does not feel it has led her to stress eating. She is continuing to follow-up with her psychologist as well. For the rest of the review of systems and exam see the EMR. Impression: 1. Atypical eating disorder, 2. Insulin resistance, 3. Obesity Class I, 4. BMI 32.0-32.9, 5. Vitamin D deficiency, 6. Vitamin B6 deficiency, 7. Iron deficiency, 8. Depression stable Plan: She will continue with phentermine for appetite control for maintenance as she continues to tolerate the medication well. She had lost >5% of body weight in the first 12 weeks on the medication. OARRS reviewed again today. She will also continue with Wellbutrin for mood and volume control dosed at lunchtime. She will also continue with current dose of Zoloft at nighttime to help with depression. I do recommend that she continues to f/u with our psychologist. She will also continue with zonisamide for volume control and reward eating. She will also continue with current dose of dulaglutide off label for glucose regulation secondary to insulin resistance, volume control and continued weight loss/maintenance. She will also continue with vitamin and [...] Systems Constitutional: Negative for appetite change and fatigue. HENT: [...] Smokeless tobacco: Never Vaping Use - Vaping status: Never Used Substance and Sexual Activity - Alcohol use: Yes - Drug use: Never - Sexual activity: Yes Partners: Male Current Outpatient Medications Medication Sig Dispense Refill - albuterol 90 mcg/actuation inhaler Inhale 2 (two) puffs every 6 (six) hours as needed for shortness of breath or cough . 18 g 0 - buPROPion (WELLBUTRIN XL) 150 MG 24 hr tablet Take 1 (one) tablet (150 mg total) by mouth daily . 30 tablet 2 - furosemide (LASIX) 20 MG tablet Take 1 (one) tablet (20 mg total) by mouth daily as needed Reasons: visible water retention. - levothyroxine (S (more content not included)...[facility] 04-16-2025 History of Present illness Narrative* Betina Pop, [facility] - 04/16/2025 10:01 AM EDT Chief Complaint Patient presents with Medical Weight Management [place]: Pt who is a Body mass index is 32.83 kg/m . Patient's history of diet, exercise, sleep, stress and appetite control reviewed and confirmed withpatient, please see the medical claims representative's note. HPI: Patient here today for recheck through the medical weight management program. Patient denies any increase in cravings and hunger since last appointment. Energy levels are reasonable. Sleep is reasonable. Patient feels she is still doing well adhering to the dietary protocols as ordered since last appointment but states she has not been exercising much due to working a lot of hours and stressat home. She is up almost 2 pounds since last appointment but states that she also worked a 12-hourshift last night and drove to this appointment today. She feels that this contributes to her weightgain. Medications were reviewed today and no other problems noted. Stress levels have been increased as her boyfriend lost his job and so she has needed to work overtime to accommodate for their finances. This has been really stressful for her but she does not feel it has led her to stress eating. She is continuing to follow-up with her psychologist as well. For the rest of the review of systems a nd exam see the EMR. Impression: 1. Atypical eating disorder, 2. Insulin resistance, 3. Obesity Class I, 4. BMI 32.0-32.9, 5. Vitamin D deficiency, 6. Vitamin B6 deficiency, 7. Iron deficiency, 8. Depression stable Plan: She will continue with phentermine for appetite control for maintenance as she continues to tolerate the medication well. She had lost >5% of body weight in the first 12 weeks on the medication. OARRS reviewed again today. She will also continue with Wellbutrin for mood and volume control dosed at lunchtime. She will also continue with current dose of Zoloft at nighttime to help with depression. I do recommend that she continues to f/u with our psychologist. She will also continue withzonisamide for volume control and reward eating. She will also continue with current dose of dulaglutide off label for glucose regulation secondary to insulin resistance, volume control and continuedweight loss/maintenance. She will also continue with vitamin and iron supplementation due to history of deficiency. We also discussed working on meeting dietary targets throughout the day, especiallyprotein to carbohydrate ratios, to better help with insulin resistance. We also discussed continuing to work on redirection techniques to help with any reward eating. I also encouraged Pt to continueworking on exercise within orthopedics to help with [...] Systems Constitutional: Negative for appetite change and fatigue. HENT: [...] breath or cough . 18 g 0 buPROPion (WELLBUTRIN XL) 150 MG 24 hr tablet Take 1 (one) tablet (150 mg total) by mouth daily . 30 tablet 2 furosemide (LASIX) 20 MG tablet Take 1 [...] Reported on 12/10/2024 .) 1 each 2 cyanocobalamin, vitamin B-12, 1,000 [...] current facility-administered medications for this visit. BP 103/68 Pulse (!) 108 Ht 5' 5 (1.651 m) Wt 89.5 kg (197 lb 4.8 oz) SpO2 99% BMI 32.83 kg/m Physical Exam Vitals and nursing note [...] Relevant Medications phentermine (ADIPEX-P) 37.5 mg tablet sertraline (ZOLOFT) 25 MG tablet zonisamide (ZONEGRAN) 100 MG capsule Other Visit Diagnoses Insulin resistance Relevant Medications dulaglutide (Trulicity) 4.5 mg/0.5 mL Pen Obesity, Class I, BMI 30-34.9 Relevant Medications phentermine (ADIPEX-P) 37.5 mg tablet BMI 32.0-32.9,adult Vitamin D deficiency Vitamin B6 deficiency Iron deficiency Depression, unspecified depression type Relevant Medications phentermine (ADIPEX-P) 37.5 mg tablet sertraline (ZOLOFT) 25 MG tablet Continue the currently prescribed calorie load and composition. Return in about 2 months (around 06/16/2025) for Follow Up. Counseling Time: minutes more [...] Rationale: Overweight (Findings) BMI documented in this [id number] NoteChief Complaint Patient presents with Medical Weight Management [place]: Pt who is a Body mass index is 32.6 kg/m . Patient's history of diet, exercise, sleep, stress and appetite control reviewed and confirmed with patient, please see the medical claims representative's note. HPI: Patient here today for recheck through the medical weight management program. Patient denies any increase in cravings and hunger since last appointment. Energy levels are reasonable. Sleep is reasonable. Patient feels she is still doing well adhering to the diet and exercise protocols as ordered since last appointment. She feels she could increase exercise and is hoping to do so now. Medications were reviewed today and no other problems noted. Stress levels are reasonably managed and she feels she coping much better with life stressors. She continues to f/u with our psychologist. For the rest of the review of systems and exam see the EMR. Impression: 1. Atypical eating disorder, 2. Insulin resistance, 3. Obesity Class I, 4. BMI 32.0-32.9, 5. Vitamin D deficiency, 6. Vitamin B6 deficiency, 7. Iron deficiency, 8. Depression stable Plan: She will continue with phentermine for appetite control for maintenance s she is tolerating medication well and continues to see weight loss. She has also lost >5% of body weight in the first 12 weeks on the medication. OARRS reviewed again today and Pt signed controlled substance agreement in office today. She will also continue with Wellbutrin for mood and volume control dosed at lunchtime as this works well for her. She will also continue with current dose of Zoloft to help with depression. She also feels this helps with her eating behaviors and reward eating as her mood is stable. She will also continue with zonisamide for volume control and reward eating. She will also continue with current dose of dulaglutide off label for glucose regulation secondary to insulin resistance, volume control and continued weight loss/maintenance. She will also continue with vitamin and [...] Systems Constitutional: Negative for appetite change and fatigue. HENT: [...] daily as needed Reasons: visible water retention. levothyroxine (SYNTHROID, LEVOTHROID) 150 MCG tablet Take 1 (one) tablet (150 mcg total) by mouth once daily . (Patient taking differently: Take 137 mcg by mouth once daily Takes 137 MCG .) 30 tablet 1 budesonide-formoteroL (Symbicort) 80-4.5 mcg/actuation inhaler Inhale 2 (two) puffs 2 (two) times a day . (Patient not taking: Reported on 12/10/2024 .) 1 each 2 buPROPion (WELLBUTRIN XL) 150 MG 24 hr t (more content not included)...[facility]07-29-2025 History of Present illness Narrative* Betina Pop, DIAGNOSTIC TECHNOLOGIST - 03/12/2025 10:26 AM EDT Chief Complaint Patient presents with Medical Weight Management [place]: Pt who is a Body mass index is 32.6 kg/m . Patient's history of diet, exercise, sleep, stress and appetite control reviewed and confirmed withpatient, please see the medical claims representative's note. HPI: Patient here today for recheck through the medical weight management program. Patient denies any increase in cravings and hunger since last appointment. Energy levels are reasonable. Sleep is reasonable. Patient feels she is still doing well adhering to the diet and exercise protocols as ordered since last appointment. She feels she could increase exercise and is hoping to do so now. Medications were reviewed today and no other problems noted. Stress levels are reasonably managed and she feels she coping much better with life stressors. She continues to f/u with our psychologist. For therest of the review of systems and exam see the EMR. Impression: 1. Atypical eating disorder, 2. Insulin resistance, 3. Obesity Class I, 4. BMI 32.0-32.9, 5. Vitamin D deficiency, 6. Vitamin B6 deficiency, 7. Iron deficiency, 8. Depression stable Plan: She will continue with phentermine for appetite control for maintenance s she is tolerating medication well and continues to see weight loss. She has also lost >5% of body weight in the first 12 weeks on the medication. OARRS reviewed again today and Pt signed controlled substance agreement in office today. She will also continue with Wellbutrin for mood and volume control dosed at luncht augustus as this works well for her. She will also continue with current dose of Zoloft to help with depression. She also feels this helps with her eating behaviors and reward eating as her mood is stable. She will also continue with zonisamide for volume control and reward eating. She will also continue with current dose of dulaglutide off label for glucose regulation secondary to insulin resistance,volume control and continued weight loss/maintenance. She will also continue with vitamin and [...] Systems Constitutional: Negative for appetite change and fatigue. HENT: [...] current facility-administered medications for this visit. BP 95/68 Pulse 90 Ht 5' 5 (1.651 m) Wt 88.9 kg (195 lb 14.4 oz) SpO2 99% BMI 32.60 kg/m Physical Exam Vitals and nursing note [...] hr tablet phentermine (ADIPEX-P) 37.5 mg tablet sertraline (ZOLOFT) 25 MG tablet zonisamide (ZONEGRAN) 100 MG capsule Other Visit Diagnoses Insulin resistance Relevant Medications dulaglutide (Trulicity) 4.5 mg/0.5 mL Pen Obesity, Class I, BMI 30-34.9 Relevant Medications phentermine (ADIPEX-P) 37.5 mg tablet BMI 32.0-32.9,adult Vitamin D deficiency Vitamin B6 deficiency Iron deficiency Depression, unspecified depression type Relevant Medications buPROPion (WELLBUTRIN XL) 150 MG 24 hr tablet phentermine (ADIPEX-P) 37.5 mg tablet sertraline (ZOLOFT) 25 MG tablet Hypothyroidism (acquired) Continue the currently prescribed calorie load and composition. Return in about 4 weeks (around 04/09/2025) for Follow Up. Counseling Time: minutes more [...] Rationale: Overweight (Findings) BMI documented in this [id number] NoteWeit Management Behavioral Health Appointment DATE OF SERVICE: 03/12/25 PATIENT: Aurora Mendez : 1985 PSYCHOLOGIST: Opal Godinez PsyD START TIME: 9:30 AM END TIME: 10:13 AM Initial Visit for: [x] Medical Weight Management [] Surgical Weight Management [] Surgical Weight Management - Post-op Modality of Care Delivery for this Visit: [x] Tudt-dc-Azuj/In Person [] Virtual Telehealth Nwnc-oc-Bycu Presenting Concerns/Interventions: Aurora is a 39 y.o. [1] female who initially worked with Dr. Russo, as part of the [facility], to address weight from March 2021 to December 2021. Aurora's weight management care was transferred to nurse practitioner, Betina Pop, in December 2021. Aurora discussed increased stress due to financial hardship. She explored options of obtaining another part-time position, working full-time at her current job, or leaving her current organization. The pros and cons of the options were explored. Information was provided about the importance of self-advocacy and making her concerns known to her current leadership. Aurora discussed reduced stress in her relationship. She has utilized the thought challenging exercise and finds it helpful. She continues to build connections at her job. She discussed improvements in reducing her irritation that her partner does not help with household tasks and using the acceptance intervention. Praise was provided for her efforts to adjust her thinking and reducing her stress. Aurora discussed cyclical conversation in her relationship, because she discusses her partner's past mistakes. Psychoeducation was provided about toxic relationships and waiting for a partner to improve their behaviors. Aurora was encouraged to live in the present moment. Alternative ways to communicate her needs were discussed. Mental Status: Aurora appeared appropriately groomed and casually dressed for the appointment. Mood was stressed and affect was congruent. She was alert during the appointment. She was oriented in to person, place, time, and situation. No hallucinations or delusions were evidenced. Rate of speech was normal. Thought content was appropriate and thought process was goal-directed. Her insight was adequate. Plan: Aurora will return for follow up in one month. Aurora agreed to work on the following: advocate for needs at her job, continue building friendships, and practice alternative communication styles. Areas to be addressed next session include: assess current level of stress and continue developing stress management styles both cognitively and behaviorally Opal Godinez PsyD Psychologist AUTHENTICATED BY OPAL GODINEZ, ON 03/12/2025 10:29:18[facility]07-29-2025 History of Present illness Narrative* Opal Gdoinez PsyD - 03/12/2025 9:28 AM EDT Images from the original note were not included. Weight Management Behavioral Health Appointment DATE OF SERVICE: 03/12/25 PATIENT: Aurora Mendez : 1985 PSYCHOLOGIST: Opal Godinez PsyD START TIME: 9:30 AM END TIME: 10:13 AM Initial Visit for: [x] Medical Weight Management [] Surgical Weight Management [] Surgical Weight Management - Post-op Modality of Care Delivery for this Visit: [x] Dfwq-zb-Cpmj/In Person [] Virtual Telehealth Slkf-tu-Fddh Presenting Concerns/Interventions: Aurora is a 39 y.o. [1] female who initially worked with Dr. Russo, as part of the [facility], to address weight from March 2021 to December 2021. Aurora's weight management care was transferred to nurse practitioner, Betina Pop, in December 2021. Aurora discussed increased stress due to financial hardship. She explored options of obtaining another part-time position, working full-time at her current job, or leaving her current organization. The pros and cons of the options were explored. Information was provided about the importance of self- advocacy and making her concerns known to her current leadership. Aurora discussed reduced stress in her relationship. She has utilized the thought challenging exercise and finds it helpful. She continues to build connections at her job. She discussed improvements in reducing her irritation that her partner does not help with household tasks and using the acceptance intervention. Praise was provided for her efforts to adjust her thinking and reducing her stress. Aurora discussed cyclical conversation in her relationship, because she discusses her partner's past mistakes. Psychoeducation was provided about toxic relationships and waiting for a partner to improve their behaviors. Aurora was encouraged to live in the present moment. Alternative ways to communicate her needs were discussed. Mental Status: Aurora appeared appropriately groomed and casually dressed for the appointment. Mood was stressed and affect was congruent. She was alert during the appointment. She was oriented in to person, place,time, and situation. No hallucinations or delusions were evidenced. Rate of speech was normal. Thought content was appropriate and thought process was goal-directed. Her insight was adequate. Plan: Aurora will return for follow up in one month. Aurora agreed to work on the following: advocate for needs at her job, continue building friendships, and practice alternative communication styles. Areas to be addressed next session include: assess current level of stress and continue developing stress management styles both cognitively and behaviorally Opal Godinez PsyD Psychologist documented in this [id number] [facility] DATE OF SERVICE: 02/06/25 PATIENT: Aurora Mendez : 1985 PSYCHOLOGIST: Opal Tapia PsyD START TIME: 9:31 AM END TIME: 10:20 AM Initial Visit for: [x] Medical Weight Management [] Surgical Weight Management [] Surgical Weight Management - Post-op Modality of Care Delivery for this Visit: [x] Lacj-tr-Mbfb/In Person [] Virtual Telehealth Aovf-ou-Rylj Aurora's original appointment time was at 1 PM. The psychologist had an opening at 9:30 AM, and Aurora agreed to be seen earlier. Presenting Concerns/Interventions: Aurora is a 39 y.o. [1] female who initially worked with Dr. Russo, as part of the [facility], to address weight from March 2021 to December 2021. Aurora's weight management care was transferred to nurse practitioner, Betina Pop, in December 2021. Aurora is adjusting to her new job well and she enjoys it. She reflected that she has lower stress levels at work than at home. She discussed challenges with sleep due to working third or second shift. She was encouraged to speak to her provider about appropriate OTC or prescribed sleep aides. She discussed using mystery murder podcasts for sleep. It was recommended she use sleep stories instead and psychoeducation was provided about unperceived high cortisol levels when listening to traumatic podcasts. Aurora has improved in developing emotional boundaries towards her boyfriend. She discussed continued concerns about what if thoughts. Psychoeducation was provided about maladaptive thinking of assuming. Thought challenging exercise was practiced in session. She was encouraged to notice increasing anger/irritability/frustration when her boyfriend is unhelpful and to challenge the urge to pressure him to help with household/parenting tasks. She was offered an alternative reaction to accept his unhelpfulness and take ownership of the task independently by saying, this is a single parent moment, I can do this. Psychoeducation was provided about the importance of social connection. Aurora discussed developing work friendships. It was explored how she could transition social connections outside of work. Mental Status: Aurora appeared appropriately groomed and casually dressed for the appointment. Mood was normal and affect was congruent. She was alert during the appointment. She was oriented in to person, place, time, and situation. No hallucinations or delusions were evidenced. Rate of speech was normal. Thought content was appropriate and thought process was goal-directed. Her insight was adequate. Plan: Aurora will return for follow up in one month. Aurora agreed to work on the following: practice thought challenging exercises, use sleep stories, and cultivate social connections. Areas to be addressed next session include: review insights from her homework, discuss stress management strategies Opal Tapia PsyD Psychologist AUTHENTICATED BY OPAL TAPIA, ON 02/06/2025 14:36:31[facility] 02-06-2025 History of Present illness Narrative* Opal Tapia PsyD - 02/06/2025 10:23 AM EDT Images from the original note were not included. Weight Management Behavioral Health Appointment DATE OF SERVICE: 02/06/25 PATIENT: Aurora Mendez : 1985 PSYCHOLOGIST: Opal Tapia PsyD START TIME: 9:31 AM END TIME: 10:20 AM Initial Visit for: [x] Medical Weight Management [] Surgical Weight Management [] Surgical Weight Management - Post-op Modality of Care Delivery for this Visit: [x] Eecs-oh-Ruaz/In Person [] Virtual Telehealth Wyxk-bs-Gmmf Aurora's original appointment time was at 1 PM. The psychologist had an opening at 9:30 AM, and Aurora agreed to be seen earlier. Presenting Concerns/Interventions: Aurora is a 39 y.o. [1] female who initially worked with Dr. Russo, as part of the [facility], to address weight from March 2021 to December 2021. Aurora's weight management care was transferred to nurse practitioner, Betina Pop, in December 2021. Aurora is adjusting to her new job well and she enjoys it. She reflected that she has lower stress levels at work than at home. She discussed challenges with sleep due to working third or second shift. She was encouraged to speak to her provider about appropriate OTC or prescribed sleep aides. She discussed using mystery murder podcasts for sleep. It was recommended she use sleep stories instead and psychoeducation was provided about unperceived high cortisol levels when listening to traumatic podcasts. Aurora has improved in developing emotional boundaries towards her boyfriend. She discussed continued concerns about what if thoughts. Psychoeducation was provided about maladaptive thinking of assuming. Thought challenging exercise was practiced in session. She was encouraged to notice increasing anger/irritability/frustration when her boyfriend is unhelpful and to challenge the urge to pressure him to help with household/parenting tasks. She was offered an alternative reaction to accept hisunhelpfulness and take ownership of the task independently by saying, this is a single parent moment, I can do this. Psychoeducation was provided about the importance of social connection. Aurora discussed developing work friendships. It was explored how she could transition social connections outside of work. Mental Status: Aurora appeared appropriately groomed and casually dressed for the appointment. Mood was normal andaffect was congruent. She was alert during the appointment. She was oriented in to person, place, time, and situation. No hallucinations or delusions were evidenced. Rate of speech was normal. Thought content was appropriate and thought process was goal-directed. Her insight was adequate. Plan: Aurora will return for follow up in one month. Aurora agreed to work on the following: practice thought challenging exercises, use sleep stories, and cultivate social connections. Areas to be addressed next session include: review insights from her homework, discuss stress management strategies Opal Tapia PsyD Psychologist documented in this [id number] NoteChief Complaint Patient presents with Medical Weight Management ? New lab [place]: Pt who is a Body mass index is 32.62 kg/m . Patient's history of diet, exercise, sleep, stress and appetite control reviewed and confirmed with patient, please see the medical claims representative's note. HPI: Patient here today for recheck through the medical weight management program. Patient denies any increase in cravings and hunger since last appointment. She is down a total of 15 pounds in the past 2 months since starting phentermine. Energy levels are reasonable. Sleep is reasonable. She states she has struggled at time with a new work schedule which has made her really concentrate on getting good sleep, which is not always doable, but she is working on it. Patient feels she is doing a little better adhering to the diet and exercise protocols as ordered since last appointment. She continues to have increased stress at home but she continues following up with Dr. Tapia, which she states is helping with coping strategies. Medications were reviewed today and no other problems noted. For the rest of the review of systems and exam see the EMR. Impression: 1. Atypical eating disorder, 2. Insulin resistance, 3. Obesity Class I, 4. BMI 32.0-32.9, 5. Vitamin D deficiency, 6. Vitamin B6 deficiency, 7. Iron deficiency, 8. Depression stable, 9. Hypothyroidism Plan: She will continue with phentermine for appetite control for around #3. OARRS reviewed again today. She will also continue with Wellbutrin for mood and volume control dosed at lunchtime. She will also continue with current dose of Zoloft to help with depression. She also feels this helps with her eating behaviors and reward eating as her mood is stable. She will also continue with zonisamide for volume control and reward eating. She will also continue with current dose of dulaglutide off label for glucose regulation secondary to insulin resistance, volume control and continued weight loss/maintenance as she also continues to tolerate this medication well. She will also continue with vitamin and iron supplementation due to history of deficiency. We also discussed working on meeting dietary targets throughout the day, especially protein to carbohydrate ratios, to better help with insulin resistance. We also discussed continuing to work on redirection techniques to help with any reward eating. I do recommend keeping a dietary log to help with compliance. I also encouraged Pt to continue working [...] of Systems Constitutional: Negative for appetite change (Much improved) and fatigue. HENT: Negative. Eyes: Negative. Respiratory: [...] breath or cough . 18 g 0 buPROPion (WELLBUTRIN XL) 150 MG 24 hr tablet Take 1 (one) tablet (150 mg total) by mouth daily . 30 tablet 2 dulaglutide (Trulicity) 4.5 mg/0.5 mL Pen Inject 0.5 mL (4.5 mg total) under the skin every 7 days . 2 mL 5 furosemide (LASIX) 20 MG tablet Take 1 (one) tablet (20 mg total) by mouth daily as needed Reasons: visible water retention. levothyroxine (SYNTHROID, LEVOTHROID) 150 MCG tablet Deon (more content not included)...[facility]06-25-2025 History of Present illness Narrative* Betina Pop, [facility] - 02/06/2025 9:07 AM EDT Chief Complaint Patient presents with Medical Weight Management ? New lab [place]: Pt who is a Body mass index is 32.62 kg/m . Patient's history of diet, exercise, sleep, stress and appetite control reviewed and confirmed withpatient, please see the medical claims representative's note. HPI: Patient here today for recheck through the medical weight management program. Patient denies any increase in cravings and hunger since last appointment. She is down a total of 15 pounds in the past 2 months since starting phentermine. Energy levels are reasonable. Sleep is reasonable. She states she has struggled at time with a new work schedule which has made her really concentrate on getting good sleep, which is not always doable, but she is working on it. Patient feels she is doing a little better adhering to the diet and exercise protocols as ordered since last appointment. She continues to have increased stress at home but she continues following up with Dr. Tapia, which she states is helping with coping strategies. Medications were reviewed today and no other problems noted. For the rest of the review of systems and exam see the EMR. Impression: 1. Atypical eating disorder, 2. Insulin resistance, 3. Obesity Class I, 4. BMI 32.0-32.9, 5. Vitamin D deficiency, 6. Vitamin B6 deficiency, 7. Iron deficiency, 8. Depression stable, 9. Hypothyroidism Plan: She will continue with phentermine for appetite control for around #3. OARRS reviewed again today. She will also continue with Wellbutrin for mood and volume control dosed at lunchtime. She will also continue with current dose of Zoloft to help with depression. She also feels this helps with her eating behaviors and reward eating as her mood is stable. She will also continue with zonisamidefor volume control and reward eating. She will also continue with current dose of dulaglutide off label for glucose regulation secondary to insulin resistance, volume control and continued weight loss/maintenance as she also continues to tolerate this medication well. She will also continue with vit jordan and iron supplementation due to history of deficiency. We also discussed working on meeting dietary targets throughout the day, especially protein to carbohydrate ratios, to better help with insulin resistance. We also discussed continuing to work on redirection techniques to help with any reward eating. I do recommend keeping a dietary log to help with compliance. I also encouraged Pt to continue working [...] of Systems Constitutional: Negative for appetite change (Much improved) and fatigue. HENT: Negative. Eyes: Negative. Respiratory: [...] breath or cough . 18 g 0 buPROPion (WELLBUTRIN XL) 150 MG 24 hr tablet Take 1 (one) tablet (150 mg total) by mouth daily . 30 tablet 2 dulaglutide (Trulicity) 4.5 mg/0.5 mL Pen Inject 0.5 mL (4.5 mg total) under the skin every 7 days . 2 mL 5 furosemide (LASIX) 20 MG tablet Take 1 (one) tablet (20 mg total) by mouth daily as needed Reasons:visible water retention. levothyroxine (SYNTHROID, LEVOTHROID) 150 MCG tablet Take 1 (one) tablet (150 mcg total) by mouth once daily . (Patient taking differently: Take 137 mcg by mouth once daily Takes 137 MCG .) 30 tablet1 sertraline (ZOLOFT) 25 MG tablet Take 1 (one) tablet (25 mg total) by mouth nightly . 30 tablet 5 zonisamide (ZONEGRAN) 100 MG capsule Take 1 (one) capsule (100 mg total) by mouth once daily Take in evening . 30 capsule 5 budesonide-formoteroL (Symbicort) 80-4.5 mcg/actuation inhaler Inhale 2 (two) puffs 2 (two) times aday . (Patient not taking: Reported on 12/10/2024 .) 1 each 2 cyanocobalamin, vitamin B-12, 1,[address] 1 (one) tablet (1,000 mcg total) under the tongue daily . (Patient not taking: Reported on 12/10/2024 .) 30 tablet 2 ergocalciferol (ERGOCALCIFEROL) 1,250 mcg [...] supply per fill: 30) BMI 35.11 now 32.62 round #3, current weight 196 lbs . 30 tablet 0 pyridoxine, vitamin B6, (vitamin B-6) 25 MG tablet Take 1 (one) tablet (25 mg total) by mouth daily. (Patient not taking: Reported on 12/10/2024 .) 30 tablet 2 senna-docusate (SENNA-S) 8.6-50 mg Take 1 (one) tablet by mouth daily . 30 tablet 5 No current facility-administered medications for this visit. BP 116/82 Pulse (!) 102 Ht 5' 5 (1.651 m) Wt 88.9 kg (196 lb) SpO2 100% BMI 32.62 kg/m Physical Exam Vitals and nursing note [...] Relevant Medications phentermine (ADIPEX-P) 37.5 mg tablet Other Visit Diagnoses Insulin resistance Relevant Orders Comprehensive Metabolic Panel Hemoglobin A1c Lipid Panel Vitamin B12 Obesity, Class I, BMI 30-34.9 Relevant Medications phentermine (ADIPEX-P) 37.5 mg tablet BMI 32.0-32.9,adult Vitamin D deficiency Relevant Orders Vitamin D, Total, 25-OH Vitamin B6 deficiency Relevant Orders Vitamin B6 Iron deficiency Relevant Orders CBC Ferritin Folate Iron and TIBC Depression, unspecified depression type Relevant Medications phentermine (ADIPEX-P) 37.5 mg tablet Hypothyroidism (acquired) Relevant Orders TSH with Reflex Free T4 Continue the currently prescribed calorie load and composition. Return in about 4 weeks (around 03/06/2025) for Follow Up. Counseling Time: minutes more [...] Rationale: Overweight (Findings) BMI documented in this [id number] NoteWeit Management Behavioral Health Appointment DATE OF SERVICE: 01/08/25 PATIENT: Aurora Mendez : 1985 PSYCHOLOGIST: Opal Tapia PsyD START TIME: 9:45 AM END TIME: 10:48 AM Initial Visit for: [x] Medical Weight Management [] Surgical Weight Management [] Surgical Weight Management - Post-op Modality of Care Delivery for this Visit: [x] Eqht-ea-Ekbd/In Person [] Virtual Telehealth Nvxm-ch-Lqnm Eating/Weight/Physical Activity History: Aurora is a 39 y.o. [1] female who initially worked with Dr. Russo, as part of the [facility], to address weight from March 2021 to December 2021 (initial weight was 297 lbs). Aurora's weight management care was transferred to nurse practitioner, Betina Pop, in December 2021 (initial weight 300 lbs and current weight 211 lbs). She is motivated to lose weight to improve life expectancy to be present for her kids, increase activity level, reduce pain, and improve overall health. Aurora has struggled weight since a teenager. Significant weight gain occurred prior to March 2021 due to emotionally eating when distressed that her boyfriend was unfaithful and not present in the evenings. Her weight goals include: achieving a weight between 160 - 170 lbs and improving strength. Contributors to weight gain include: unhealthy food choices unhealthy beverage choices eating out/food delivery - previously she was eating out out daily, she now eats out once every two weeks food preparation practices late night snacking emotional eating skipping meals - typically breakfast cost of healthy foods being sedentary lack of exercise Hormones weight loss is not a priority Barriers to weight loss include: busy schedule disliking exercise lack of support - Aurora does all the cooking, grocery shopping, and meal planning. access to exercise equipment Finances prepare multiple meals to accommodate family Aurora indicated the following maladaptive thoughts/behaviors related to lifestyle changes: There are good and bad foods I am anxious about wasting food I should reward myself with food I feel better about myself if I had a perfect day of eating My self-worth is tied to how big or small I am If I don't see results, I don't need to continue eating healthy She has made several attempts to lose weight including: Keto Diet and high protein diets. She denied dieting has been significantly effective in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 tolerate this medication well. She will continue with vitamin and iron supplementation due to historyof deficiency. We also discussed working on meeting dietary targets throughout the day, especially protein to carbohydrate ratios, to better help with insulin resistance. We also discussed continuingto work on redirection techniques to help with any reward eating. I also recommend that she followsup with her psychiatrist, Dr. Tapia, due to increased stressors in her life and how this contributes to her eating behaviors. She agrees and feels that this will be helpful for her. I will have her make an appointment today. I also encouraged Pt to continue working on exercise within orthopedics tohelp with muscle acquisition. Patient will follow-up in [...] breath or cough . 18 g 0 dulaglutide (Trulicity) 4.5 mg/0.5 mL Pen Inject 0.5 mL (4.5 mg total) under the skin every 7 days . 2 mL 5 furosemide (LASIX) 20 MG tablet Take 1 (one) tablet (20 mg total) by mouth daily as needed Reasons:visible water retention. levothyroxine (SYNTHROID, LEVOTHROID) 150 MCG tablet Take 1 (one) tablet (150 mcg total) by mouth once daily . (Patient taking differently: Take 137 mcg by mouth once daily Takes 137 MCG .) 30 tablet1 sertraline (ZOLOFT) 25 MG tablet Take 1 (one) tablet (25 mg total) by mouth nightly . 30 tablet 5 zonisamide (ZONEGRAN) 100 MG capsule Take 1 (one) capsule (100 mg total) by mouth once daily Take in evening . 30 capsule 5 budesonide-formoteroL (Symbicort) 80-4.5 mcg/actuation inhaler Inhale 2 [...] daily . (Patient not taking: Reported on 12/10/2024 .) 30 tablet 2 ergocalciferol (ERGOCALCIFEROL) 1,250 mcg [...] (Days supply per fill: 30) BMI 35.11 round #1, current weight 211 lbs . 30 tablet 0 pyridoxine, vitamin B6, (vitamin B-6) 25 MG tablet Take 1 (one) tablet (25 mg total) by mouth daily. (Patient not taking: Reported on 12/10/2024 .) 30 tablet 2 senna-docusate (SENNA-S) 8.6-50 mg Take 1 (one) tablet by mouth daily . 30 tablet 5 No current facility-administered medications for this visit. BP 121/81 Pulse (!) 105 Ht 5' 5 (1.651 m) Wt 95.7 kg (211 lb) SpO2 99% BMI 35.11 kg/m Physical Exam Vitals and nursing note [...] Relevant Medications phentermine (ADIPEX-P) 37.5 mg tablet Atypical eating disorder - Primary Relevant Medications buPROPion (WELLBUTRIN XL) 150 MG 24 hr tablet phentermine (ADIPEX-P) 37.5 mg tablet Other Visit Diagnoses Insulin resistance BMI 35.0-35.9,adult Vitamin D deficiency Vitamin B6 deficiency Iron deficiency Depression, unspecified depression type Relevant Medications buPROPion (WELLBUTRIN XL) 150 MG 24 hr tablet phentermine (ADIPEX-P) 37.5 mg tablet Continue the currently prescribed calorie load and composition. Return in about 4 weeks (around 01/07/2025) for Follow Up. Counseling Time: minutes more [...] Rationale: Overweight (Findings) BMI documented in this [id number] NoteChief Complaint Patient presents with Weight Loss Obesity [place]: Pt who is a Body mass index is 35.11 kg/m . Patient's history of diet, exercise, sleep, stress and appetite control reviewed and confirmed with patient, please see the medical claims representative's note. HPI: Patient here today for recheck through the medical weight management program. Patient reports an increase in cravings and hunger since last appointment. She feels that this has been ongoing since she had to switch from tirzepatide to dulaglutide due to insurance coverage change. She has gained about 40 pounds since making this change. Energy levels are fair. Sleep is reasonable. Patient feels it has been much more difficult to adhere to the diet and exercise protocols as ordered since last appointment. She states a lot of this is due to increased stress at home. She states that her live-in boyfriend has lost his job and has not been contributing to the household. She has also found him cheating on her. She states now she is working multiple jobs, taking care of children, taking care of the household and dealing with the stressors he has put on her without any assistance from him. I did ask patient about counseling but she states she is hesitant to any counseling because each time she sees a counselor they tell her that she needs to leave him or decide to be okay with his behaviors. She states that this is really difficult for her to leave as she does love him but it has been causing her a tremendous amount of stress. She definitely finds herself stress eating. She has also had not much time to exercise due to the demands she has on her schedule. Medications were reviewed today and no other problems noted. For the rest of the review of systems and exam see the EMR. Impression: 1. Atypical eating disorder, 2. Insulin resistance, 3. Obesity Class II, 4. BMI 35.0-35.9, 5. Vitamin D deficiency, 6. Vitamin B6 deficiency, 7. Iron deficiency, 8. Depression Plan: I did discuss other options for medication management with patient today. She states that she has always really done well with phentermine. I will trial patient on phentermine for appetite control for around #1 as she has done really well with this in the past. OARRS reviewed today and patient signed controlled substance consent in office today. I did discuss risk versus benefits which she states understanding and will contact office if any concerns or side effects that are unwanted. In the meantime, I will also have her decrease dose and Wellbutrin to make room for phentermine but also continue to help with mood and volume control. If any unwanted changes in her mental health, she will contact office. She will also continue with current dose of Zoloft to help with depression as well as she does feel this helps with her eating behaviors and reward eating when she feels better controlled with her mood. She will also continue with zonisamide for volume control and reward eating. She will also continue with current dose of dulaglutide off label for glucose regulation secondary to insulin resistance, volume control and continued weight loss/maintenance as she also continues to tolerate this medication well. She will continue with vitamin and iron supplementation due to history of deficiency. We also discussed working on meeting dietary targets throughout the day, especially protein to carbohydrate ratios, to better help with insulin resistance. We also discussed continuing to work on redirection techniques to help with any reward eating. I also recommend that she follows up with her psychiatrist, Dr. Tapia, due to increased stressors in her life and how this contributes to her eating behaviors. She agrees and feels that this will be helpful for her. I will have her make an appointment today. I also encouraged Pt to continue working [...] diarrhea, nausea and vomiting. Endocrine: Negative. Genitourinary: (more content not included)...[facility]02-17-2025 History of Present illness Narrative* Betina Pop, DIAGNOSTIC TECHNOLOGIST - 10/01/2024 8:45 AM EST Video Visit Patient: Aurora Mendez Date of : 1985 (39 y.o. female) PCP: Evi Pacheco MD Video Visit Consent Statement: I have communicated my name and active licensure. The patient's identity and physical location were verified at the time of this visit. Either the patient or their legal insurance follow up representative has been informed of the risks [...] that there are some limitations compared to [id number] evaluations. We elected to proceed. Chief Complaint Patient presents with Weight Loss Obesity Patient Start time: Stop time: Pt who is a Body mass index is 32.28 kg/m . Patient's history of diet, exercise, sleep, stress and appetite control reviewed and confirmed withpatient, please see the medical claims representative's note. This is a telemedicine encounter. This visit has been fully reviewed with the patient and verbal consent has been obtained. [place]: Patient here today for recheck through the medical weight management program. Patient denies any increase in cravings or hunger since last appt. Energy levels are reasonable. Sleep is reasonable. Patient feels she is able to adhere to the dietary protocols as ordered and she is working on getting back to exercise after her panniculectomy on 07/26. She states she is trying to walk regularly.Medications were reviewed today and no problems noted. Stress levels are reasonably managed and patient feels stable with her mood. For the rest of the review of systems and exam see the EMR. ASSESSMENT: 1. Atypical eating disorder buPROPion (WELLBUTRIN XL) 300 MG 24 hr tablet zonisamide (ZONEGRAN) 100 MG capsule 2. Insulin resistance dulaglutide (Trulicity) 4.5 mg/0.5 mL Pen 3. Obesity, Class I, BMI 30-34.9 4. BMI 32.0-32.9,adult 5. Vitamin D deficiency 6. Vitamin B6 deficiency 7. Iron deficiency 8. Depression, unspecified depression type sertraline (ZOLOFT) 25 MG tablet Plan: Patient will continue with Wellbutrin for volume control. She will also continue with the addition of low-dose Zoloft which is helping with depression symptoms in conjunction with Wellbutrin. She feels much better controlled with her eating behaviors when mental health is stable. She will also continue with Trulicity off label for meal termination and insulin resistance. She will also continue with zonisamide for volume control reward eating. Patient will continue with vitamin supplementation due to history of deficiency. We also discussed working on meeting dietary targets throughout the day, especially protein to carbohydrate ratios, to better help with insulin resistance. I also encouraged Pt to continue working on exercise within orthopedics to help with muscle acquisition within recommendation/limitations set by surgeon. Patient will follow-up in 2 months in office or sooner if needed.. This note was partially created using voice [...] (two) puffs 2 (two) times aday . 1 each 2 buPROPion (WELLBUTRIN XL) 300 MG 24 hr tablet Take 1 (one) tablet (300 mg total) by mouth daily . 30 tablet 5 cyanocobalamin, vitamin B-12, 1,[address] 1 (one) tablet (1,000 mcg total) under the tongue daily . 30 tablet 2 dulaglutide (Trulicity) 4.5 mg/0.5 [...] mouth daily as needed Reasons:visible water retention. inhaler, assist devices ([employer]) [...] tablet (25 mg total) by mouth daily. 30 tablet 2 senna-docusate (SENNA-S) 8.6-50 mg [...] sertraline (ZOLOFT) 25 MG tablet zonisamide (ZONEGRAN) 100 MG capsule Other Visit Diagnoses Insulin resistance Relevant Medications dulaglutide (Trulicity) 4.5 mg/0.5 mL Pen Obesity, Class I, BMI 30-34.9 BMI 32.0-32.9,adult Vitamin D deficiency Vitamin B6 deficiency Iron deficiency Depression, unspecified depression type Relevant Medications buPROPion (WELLBUTRIN XL) 300 MG 24 hr tablet sertraline (ZOLOFT) 25 MG tablet Continue the currently prescribed calorie load and composition. Return in about 2 months (around 11/29/2024) for Follow Up. Total Visit Time: minutes more than 50% of the time face to face discussing findings and coordinating care regarding medication management and education for disease processes and treatment protocol. Provider Location: [facility] [address] [facility] [id number] Patient Location: [address] [place] [address] A [address] [facility] [id number] documented in this [id number] NoteVideo Visit Patient: Aurora Mendez Date of : 1985 (39 y.o. female) PCP: Evi Pacheco MD Video Visit Consent Statement: I have communicated my name and active licensure. The patient's identity and physical location were verified at the time of this visit. Either the patient or their legal insurance follow up representative has been informed of the risks [...] that there are some limitations compared to [id number] evaluations. We elected to proceed. Chief Complaint Patient presents with Weight Loss Obesity Patient Start time: Stop time: Pt who is a Body mass index is 32.28 kg/m . Patient's history of diet, exercise, sleep, stress and appetite control reviewed and confirmed with patient, please see the medical claims representative's note. This is a telemedicine encounter. This visit has been fully reviewed with the patient and verbal consent has been obtained. [place]: Patient here today for recheck through the medical weight management program. Patient denies any increase in cravings or hunger since last appt. Energy levels are reasonable. Sleep is reasonable. Patient feels she is able to adhere to the dietary protocols as ordered and she is working on getting back to exercise after her panniculectomy on 07/26. She states she is trying to walk regularly. Medications were reviewed today and no problems noted. Stress levels are reasonably managed and patient feels stable with her mood. For the rest of the review of systems and exam see the EMR. ASSESSMENT: 1. Atypical eating disorder buPROPion (WELLBUTRIN XL) 300 MG 24 hr tablet zonisamide (ZONEGRAN) 100 MG capsule 2. Insulin resistance dulaglutide (Trulicity) 4.5 mg/0.5 mL Pen 3. Obesity, Class I, BMI 30-34.9 4. BMI 32.0-32.9,adult 5. Vitamin D deficiency 6. Vitamin B6 deficiency 7. Iron deficiency 8. Depression, unspecified depression type sertraline (ZOLOFT) 25 MG tablet Plan: Patient will continue with Wellbutrin for volume control. She will also continue with the addition of low-dose Zoloft which is helping with depression symptoms in conjunction with Wellbutrin. She feels much better controlled with her eating behaviors when mental health is stable. She will also continue with Trulicity off label for meal termination and insulin resistance. She will also continue with zonisamide for volume control reward eating. Patient will continue with vitamin supplementation due to history of deficiency. We also discussed working on meeting dietary targets throughout the day, especially protein to carbohydrate ratios, to better help with insulin resistance. I also encouraged Pt to continue working on exercise within orthopedics to help with muscle acquisition within recommendation/limitations set by surgeon. Patient will follow-up in 2 months in office or sooner if needed.. This note was partially created using voice [...] Never Vaping Use Vaping status: Never Used (more content not included)...[facility] 08-30-2024 NotePROCEDURE: ULTRASOUND GUIDED ABDOMINAL FLUID COLLECTION ASPIRATION 08/30/2024 2:27 pm HISTORY: ORDERING SYSTEM PROVIDED HISTORY: Abdominal wall seroma, subsequent encounter SEDATION: None. Local anesthetic only. TECHNIQUE/PROCEDURE DETAILS: IMPLEMENTATION ARCHITECT: Brad Ortega Informed consent was obtained after a detailed explanation of the procedure including risks. Sharples protocol was followed. Initial ultrasound the anterior pelvic wall near the healing transverse incision demonstrated only scant fluid in the subcutaneous tissues which was insufficient for drainage. The patient reported that she perceived this fluid in the standing position. After trialing a few positions, the fluid along the anterior pelvic wall was best seen in the left lateral decubitus position. The overlying skin was prepped and draped in sterile manner, and a site overlying the greatest amount of this fluid was selected for skin entry. This site was anesthetized with 1% lidocaine. A 5 Y[place] Yueh needle was inserted into the fluid collection under direct ultrasound guidance. 113 mL of serosanguineous fluid was aspirated. (There were no orders for collecting a specimen.) No significant residual fluid was appreciated at the end of the aspiration. The needle sheath was removed. Blood loss was minimal. The patient tolerated the procedure well. After standing up, the patient reported improvement in her symptoms. COMPLICATIONS: None immediately apparent. [facility] [id number] NotePROCEDURE: ULTRASOUND GUIDED ABDOMINAL FLUID COLLECTION ASPIRATION 08/30/2024 2:27 pm HISTORY: ORDERING SYSTEM PROVIDED HISTORY: Abdominal wall seroma, subsequent encounter SEDATION: None. Local anesthetic only. TECHNIQUE/PROCEDURE DETAILS: IMPLEMENTATION ARCHITECT: Brad Ortega Informed consent was obtained after a detailed explanation of the procedure including risks. Sharples protocol was followed. Initial ultrasound the anterior pelvic wall near the healing transverse incision demonstrated only scant fluid in the subcutaneous tissues which was insufficient for drainage. The patient reported that she perceived this fluid in the standing position. After trialing a few positions, the fluid along the anterior pelvic wall was best seen in the left lateral decubitus position. The overlying skin was prepped and draped in sterile manner, and a site overlying the greatest amount of this fluid was selected for skin entry. This site was anesthetized with 1% lidocaine. A 5 Y[place] Yueh needle was inserted into the fluid collection under direct ultrasound guidance. 113 mL of serosanguineous fluid was aspirated. (There were no orders for collecting a specimen.) No significant residual fluid was appreciated at the end of the aspiration. The needle sheath was removed. Blood loss was minimal. The patient tolerated the procedure well. After standing up, the patient reported improvement in her symptoms. COMPLICATIONS: None immediately apparent. IMPRESSION: Successful ultrasound-guided anterior pelvic seroma aspiration resulting in evacuation of the collection. Interpreted by: Brad Ortega MD Signed by: Brad Ortega MD 08/30/24 [facility] Discharge instructions * Discharge Instructions* Madeline Bautista RN - 07/26/2024 9:19 AM EST Images from the original note were not included. POST-OPERATIVE INSTRUCTIONS FOR SUTURE LINECARE Incisions and suture lines are a necessary part of surgery. These lines take many months to fully heal. Part of the healing process requires proper cleansing and care. In addition, there are treatments that can help resulting scars to be flatter, finer, and less noticeable. There is no guarantee towhat a scar will look like once it has fully healed, however the following instructions are important to a good outcome. Do not smoke. You have been advised to quit before surgery. Do not start after surgery. Smoking decreases the oxygen in your blood and greatly impacts your ability to heal. Do not smoke until your incisions have fully healed. You may remove the bandage from the area in 48 hours, unless you have a bolster dressing. A bolsterdressing is a yellow dressing that is sutured to the skin. Do not attempt to remove this kind of dressing. Keep the dressing intact on this dressing. You may shower 24-48 hours post your procedure unless instructed other myers. You may remove the outer dressings to shower. If you have Steri-Strips in place keep them intact. If you have no visible sutures but only tape (steri-strips) over the incision, you do not need to do anything until the strips fall off. You may use antibiotic ointment on the area after the steri-strips have fallen off. You may remove your abdominal binder shower and replace it. She can take the outer (which includes the ABD and tape) dressing off in 48 to 72 hours leaving thesteri-strips intact. She may shower and replace the binder. After 48 to 72 hours. Thank you If you have sutures, they will remain in the skin anywhere from 7-21 days, or longer depending on the area and your healing. Please call for an appointment if one has not been scheduled. You may notice a slight drainage of either blood or a clear type of liquid from the area, which is normal. If the drainage has an odor to it call the office. DIET: Resume your previous diet. ACTIVITY: Avoid straining, strenuous exercise, or lifting over five pounds for 14 days, unless instructed otherwise. Depending on they type of surgery you have had this may be as long as SIX WEEKS. (Do not bend over for the first 24 hours after your surgery). Direct trauma and physical stress may result in a separation of the suture line or wider scars. MEDICATIONS: If you have been given an antibiotic, take until finished. Please take pain medication as prescribed, follow directions CAREFULLY. Note: As Needed Do not drive or operate machinery while on pain medications. WORK/SCHOOL: This will be decided at the time of surgery or your follow up visit. Do not swim in any [place], ocean, swimming pool or other water for at least 5 days or other myers instructed. INFORMATION: Pain and swelling in the surgical area is normal, and will reduce over the several weeks after surgery, at times it may last several months after surgery. Avoid sun bryan or over exposing your skin to the sun for two weeks prior to surgery, and one year after your surgery. You must wear water proof sun block with at least an SPF of 30 at all times in the surgically treated area including the suture line. This is imperative at least 30 minutes before any prolonged sun exposure is expected. Protective clothing and wide brimmed hat for facial surgeries is highly recommended. New scars are sensitive to sunlight and if unprotected will result in permanent changes in scar color to darker, charge poster or discolored. At times you may have a modular, bumpy,raised or thickened appearance to the scar. This may be hypertrophic or keloid. Please contact our o ffice as soon as possible. If you have a Biopatch in place, leave it intact until office visit. Call the office if any of the following occur: Excessive bleeding from the incision Excessive swelling Excessive redness Extreme throbbing Fever over 100.4 F. Foul smelling drainage Our office numbers are as follows: [place] office: Caring for a Closed Suction Drainage Tube A drainage tube removes fluid from around an incision. This helps prevent infection and promotes healing. The collection bulb at the end of the tube is squeezed and plugged to create suction. The bulb should be emptied and reset when half full to maintain adequate suction. You need to empty the bulb and clean the skin around the drain as often as your healthcare provider tells you to. Follow the steps below. Have the following items ready: Disposable gloves Measuring cup Record sheet Gauze or paper towel Sterile cotton swabs or 4 x 4 gauze pads Sterile saline or soap and water Step 1. Empty the bulb Wash your hands and put on a new pair of disposable gloves. Point the top of the bulb away from you and remove the stopper. Turn the bulb upside down over a measuring cup. Squeeze the fluid into the cup. Make sure the bulb is totally empty. Put the cup to one side. You can record the volume of liquid in the cup after you clean and reconnect the bulb in step 2. Step 2. Clean and reconnect the bulb Clean the top of the bulb with clean gauze or or alcohol as needed. Squeeze the bulb tight, and putthe stopper back on the top. Record the amount of fluid in the cup. Then, empty the cup as directed. Step 3. Clean the site If you have a Biopatch in place leave that intact When to call your healthcare provider Call your healthcare provider if you notice any of these changes: The amount of fluid increases or decreases suddenly Large amount of blood or a clot in drainage Color, odor, or thickness of the fluid changes Tube falls out or the incision opens Skin around the drain is red, swollen, painful, or seeping pus You have a fever of 100.4 F (38 C) or higher, or as directed by your healthcare provider If the tube isn't draining Here are tips to drain the tube: Uncurl any kinks in the tube. With one hand, firmly hold the base of the tube between your thumb and index finger. Do not touch the incision. Put the thumb and index finger of your other hand on the tube, next to the first hand. Pinch your fingers together. Then pull them along the tube toward the bag. This will help push any clogged fluidthrough the tube. This is called stripping the tube. You may find it helpful to hold an alcohol swab between your fingers and the tube to lubricate the tubing. If the tube still does not drain, call your healthcare provider. DRAIN CARE INSTRUCTIONS AND LOG Drain Care Drain care is required 3 times per day immediately following surgery. Follow these instructions explicitly and record drains as required below. You must complete this 3 times per day, and at any timethe drainage bag is more than 1/3 full. You will be required to submit the drain log to Lila Barr MD for your patient record. 1.Wash your hands well with anti-bacterial soap. 2. Strip the drain holding it at the base of the is not pulled out. You must strip. Drain at least 3 times a day if not more to prevent clots forming in the tubing. 3. Open cap on the drain bulb. Pour out drainage into a clean measuring cup. Record the amount of drainage and time of day as indicated. Dispose of drainage in the toilet and flush. 4. Squeeze bulbs tight. Replace cap. Once you have measured your fluid drainage, you must milk or strip the drain tubing. This is done to prevent small clots from blocking fluid flow. To do this, hold the tubing securely at the skin site with one hand. With the other hand, pinch thetubing between your thumb and index finger and apply firm pressure as you strip the tubing towards the bulb. If the tubing and bulb come apart, wipe the ends with alcohol and reconnect. Squeeze the bulb againand replace cap. Cleansing the Drain Site If you have Biopatch in place keep that intact Additional Instruction Always Secure the drain to your clothing so that there is no tension on the drain at the incision site Do not cut the drains Keep tubes connected to the bulbs Check that the bulb is always deflated (or flat) Caution and Concern Notify Lila Barr MD immediately if any of the following occur: A large amount of leakage around the drain A marked increase in drainage output (double your usual flow) Increased heat, redness or tenderness around the insertion site Name: Aurora Mendez Date of : 1985 Surgery Date: July 26, 2024 Date Drain #1 (right) amount Drain #2 (left) amount Drain #3 (back) amount Please note you must strip your drains at least once a day. Please call the office if change in color of drainage or a sudden drop in the amount of drainage. documented in this encounterBon [facility] History of Present illness Narrative* MARCE Campbell - 06/14/2024 10:00 AM EDT Reason for Appointment: Patient ID: Aurora Mendez is a 39 y.o. female who presents for [facility] Women Visit Patient presents today for Annual Exam. MEDICATIONS Current Outpatient Medications Medication Instructions buPROPion XL (WELLBUTRIN XL) 300 mg, Oral, Daily furosemide (LASIX) 20 mg, Oral, 2 times daily levothyroxine (SYNTHROID, LEVOXYL) 137 mcg, Oral, Daily valACYclovir (VALTREX) 1,000 mg, Oral, 2 times daily zonisamide (ZONEGRAN) 25 mg, Oral, Daily RT ALLERGIES No Known Allergies PROBLEMS Active Ambulatory Problems Diagnosis Date Noted No Active Ambulatory Problems Resolved Ambulatory Problems Diagnosis Date Noted No Resolved Ambulatory Problems Past Medical History: Diagnosis Date BEE I (cervical intraepithelial neoplasia I) History of recurrent UTIs HISTORY PAST MEDICAL HISTORY SOCIAL HISTORY Past Medical History: Diagnosis Date BEE I (cervical intraepithelial neoplasia I) History of recurrent UTIs Social History Tobacco Use Smoking status: Not on file Smokeless tobacco: Not on file Substance Use Topics Alcohol use: Not on file Drug use: Not on file FAMILY HISTORY Family History Problem Relation Name Age of Onset Thyroid disease Mother Skin cancer Father Diabetes Father Diabetes Maternal Grandmother SURGICAL HISTORY Past Surgical History: Procedure Laterality Date CERVICAL BIOPSY W/ LOOP ELECTRODE EXCISION 2007 BEE I COLPOSCOPY 2008 BEE I REVIEW OF SYSTEMS Review of Systems: Review of Systems Constitutional: Negative. HENT: Negative. Eyes: Negative. Respiratory: Negative. Cardiovascular: Negative. Gastrointestinal: Negative. Genitourinary: Negative. Musculoskeletal: Negative. Skin: Negative. Neurological: Negative. All other systems reviewed and are negative. Hematological: Negative. Endocrine: Negative. Allergic/Immunologic: Negative. OBJECTIVE Objective: Physical Exam Constitutional: Appearance: Normal appearance. She is well-developed. Genitourinary: Vulva normal. Right Adnexa: not tender and no mass present. Left Adnexa: not tender and no mass present. No cervical discharge. Breasts: Breasts are soft. Right: Normal. Left: Normal. HENT: Head: Normocephalic. Nose: Nose normal. Mouth/Throat: Mouth: Mucous membranes are moist. Cardiovascular: Rate and Rhythm: Normal rate and regular rhythm. Pulmonary: Effort: Pulmonary effort is normal. Breath sounds: Normal breath sounds. Abdominal: General: Bowel sounds are normal. There is no distension. Palpations: Abdomen is soft. Tenderness: There is no abdominal tenderness. There is no guarding or rebound. Musculoskeletal: General: No swelling. Normal range of motion. Cervical back: Normal range of motion. Right lower leg: No edema. Left lower leg: No edema. Neurological: General: No focal deficit present. Mental Status: She is alert and oriented to person, place, and time. Skin: General: Skin is warm and dry. Psychiatric: Mood and Affect: Mood normal. Behavior: Behavior normal. Vitals and nursing note reviewed. Exam conducted with a logistics planner present. Vitals: Estimated body mass index is 31.22 kg/m as calculated from the following: Height as of 06/13/23: 5' 6 . Weight as of this encounter: 193 lb 6.4 oz. BP: 112/74 No LMP recorded. ASSESSMENT & PLAN ICD-10-CM 1. Well woman exam with routine gynecological exam Z01.419 Pap Smear HPV DNA probe, amplified 2. Herpes simplex B00.9 valACYclovir (Valtrex) 1 g tablet Annual Exam: Patient presents today for an annual exam. Patient states she is doing well and has no complaints. Pap was obtained without difficulty. Orders Placed This Encounter Procedures HPV DNA probe, amplified Follow Up: Patient is to return in one year for annual unless needed otherwise. Documented by Constanza Howard LPN on behalf of: MARCE Campbell documented in this encounterHedrick Medical [id number] History of Present illness Narrative* Betina Pop, DIAGNOSTIC TECHNOLOGIST - 04/17/2024 1:05 PM EDT Video Visit Patient: Aurora Mendez Date of : 1985 (38 y.o. female) PCP: Evi Pacheco MD Video Visit Consent Statement: I have communicated my name and active licensure. The patient's identity and physical location were verified at the time of this visit. Either the patient or their legal insurance follow up representative has been informed of the risks [...] that there are some limitations compared to vzml-ih-[id number] evaluations. We elected to proceed. Chief Complaint Patient presents with Obesity Weight Loss Patient Start time: Stop time: Pt who is a Body mass index is 32.35 kg/m . Patient's history of diet, exercise, sleep, stress and appetite control reviewed and confirmed withpatient, please see the medical claims representative's note. This is a telemedicine encounter. This visit has been fully reviewed with the patient and verbal consent has been obtained. [place]: Patient here today for recheck through the [...] We also discussed getting back on her zonisamidedaily to help with volume control and reward eating. I discussed risk versus benefits but that consistency of taking medication will help with symptoms. We discussed ways she could work on this. She will also continue with Trulicity for glucose regulation secondary to insulin resistance, as well asvolume control. We will try and increase to the 4.5 mg dose to better help with symptoms. I did discuss risk versus benefits, as well as ways to mitigate side effects if needed. She has complained ofsome constipation since switching to Trulicity, so she will trial some senna S as needed for constipation symptoms. Patient will continue with vitamin supplementation due to history of deficiency. Wediscussed working on redirection techniques to help with reward eating. Patient is drinking at least two 20 ounce bottles of Pepsi daily, which is new from last appointment. We discussed stopping soda intake as this is causing her to have empty calories, as well as increased sugar and carbohydratesthat is unnecessary. We discussed ways to help her titrate off of soda intake. She will continue towork on this and increase water intake. We [...] (two) puffs 2 (two) times aday . 1 each 2 buPROPion (WELLBUTRIN XL) [...] mouth daily as needed Reasons:visible water retention. inhaler, assist devices (OPTICHAMBER [employer]VANTAGE) [...] tablet (25 mg total) by mouth daily. 30 tablet 2 senna-docusate (SENNA-S) 8.6-50 mg [...] disease processes and treatment protocol. Provider Location: [facility] [address] [facility] [id number] Patient Location: [address] [place] [address] [address] [facility] [id number] * Trinity Ball MA - 04/17/2024 11:37 AM EDT h [facility] Weight Management Diet Questionnaire Question 04/17/2024 11:33 AM EDT - Filed by Patient MEAL PLAN QUESTIONS Breakfast Eggs, sausage/light, cereal, pancakes Lunch [place], salad, pizza, hamburger, chicken Dinner Pork chops, [...] recent Blood Pressure? 100/72 documented in this [id number] Telephone encounter Note* Telephone Encounter - Trinity Ball MA - 03/06/2024 10:05 AM EDT JAMES 01/17JUN 22 Requested Prescriptions Pending Prescriptions Disp Refills tirzepatide (Mounjaro) 15 mg/0.5 mL Pen 2 mL 5 Sig: Inject 0.5 mL (15 mg total) under the skin every 7 days . [id number] Miscellaneous Notes* Telephone Encounter - Trinity Ball MA - 03/06/2024 10:05 AM EDT JAMES 01/17JUN 22 Requested Prescriptions Pending Prescriptions Disp Refills tirzepatide (Mounjaro) 15 mg/0.5 mL Pen 2 mL 5 Sig: Inject 0.5 mL (15 mg total) under the skin every 7 days . documented in this [id number] History of Present illness Narrative* Trinity Ball MA - 01/18/2024 10:54 AM EDT [facility] Weight Management Diet Questionnaire Question 01/18/2024 10:22 [...] weight? 167.9 Most recent Blood Pressure? 115/70 * Betina Pop CNP - 01/18/2024 10:37 AM EDT Chief Complaint Patient presents with Obesity Weight Loss [place]: Pt who is a Body mass index is 27.82 kg/m . Patient's history of diet, exercise, sleep, stress and appetite control reviewed and confirmed withpatient, please see the medical claims representative's note. HPI: Patient here today for recheck [...] Insulin resistance, 3. Overweight, 4. BMI 27.0-27.9, 5.Vitamin D deficiency, 6. Vitamin B6 deficiency, 7. Iron deficiency Plan: Patient will continue with Wellbutrin for volume control as she continues to do well with medication. She will also continue with zonisamide for volume control and reward eating as this is alsoworking well for her. Patient will also continue [...] (two) puffs 2 (two) times aday . 1 each 2 cyanocobalamin, vitamin B-12, [...] mouth daily as needed Reasons:visible water retention. inhaler, assist devices (OPTICHAMBER ADVANTAGE) [...] tablet (25 mg total) by mouth daily. 30 tablet 2 sertraline (ZOLOFT) 25 MG tablet Take 1 (one) tablet (25 mg total) by mouth nightly . 30 tablet 2 tirzepatide (Mounjaro) 15 mg/0.5 mL Pen Inject 0.5 mL (15 mg total) under the skin every 7 days . 2mL 5 buPROPion (WELLBUTRIN XL) 300 MG 24 [...] Rationale: Overweight (Findings) BMI documented in this [id number] Telephone encounter Note* Telephone Encounter - Trinity Ball MA - 11/18/2023 12:41 PM EDT JAMES 11/02 Requesting a pharmacy - change Requested Prescriptions Pending Prescriptions Disp Refills tirzepatide (Mounjaro) 15 mg/0.5 mL Pen 2 mL 5 Sig: Inject 0.5 mL (15 mg total) under the skin every 7 days . [id number] Miscellaneous Notes* Telephone Encounter - Trinity Ball MA - 11/18/2023 12:41 PM EDT JAMES 11/02 Requesting a pharmacy - change Requested Prescriptions Pending Prescriptions Disp Refills tirzepatide (Mounjaro) 15 mg/0.5 mL Pen 2 mL 5 Sig: Inject 0.5 mL (15 mg total) under the skin every 7 days . documented in this [id number] History of Present illness Narrative* Betina Pop, LATONIA - 11/03/2023 9:09 AM EDT Video Visit Patient: Aurora Mendez Date of : 1985 (38 y.o. female) PCP: Evi Pacheco MD Video Visit Consent Statement: I have communicated my name and active licensure. The patient's identity and physical location were verified at the time of this visit. Either the patient or their legal insurance follow up representative has been informed of the risks [...] that there are some limitations compared to lwsb-yc-ivly evaluations. We elected to proceed. Chief Complaint Patient presents with Obesity Weight Loss Patient Start time: Stop time: Pt who is a Body mass index is 27.29 kg/m . Patient's history of diet, exercise, sleep, stress and appetite control reviewed and confirmed withpatient, please see the medical claims representative's note. This is a telemedicine encounter. This visit has been fully reviewed with the patient and verbal consent has been obtained. [place]: Patient here today for recheck through the medical weight management program. Patient denies any increase in cravings or hunger since last appointment. Energy levels are improving. Sleep is improving. She feels less need to nap during the day now. Patient feels she is better able to adhere tothe dietary protocols as ordered and is working [...] follow-up in office in 8 weeks or soonerif needed. This note was partially created using [...] (two) puffs 2 (two) times aday . 1 each 2 buPROPion (WELLBUTRIN XL) [...] tablet (25 mg total) by mouth daily. 30 tablet 2 sertraline (ZOLOFT) 25 MG tablet Take 1 (one) tablet (25 mg total) by mouth nightly . 30 tablet 2 tirzepatide (Mounjaro) 15 mg/0.5 mL Pen Inject 0.5 mL (15 mg total) under the skin every 7 days . 2mL 5 zonisamide (ZONEGRAN) 50 MG capsule Take [...] disease processes and treatment protocol. Provider Location: [facility] [address] [facility] [address] Patient Location: [facility] [address] [facility] [address] [facility] [address] * Trinity Ball MA - 11/03/2023 7:58 AM EDT h [facility] Weight Management Diet Questionnaire Question [...] 100/60 118/76 Questionnaire Submission documented in this [id number] Instructions* Patient Instructions* Betina Pop CNP - 09/01/2023 9:19 AM EST List of [...] oz (100 grams) of cooked fish, or 6grams per ounce of cooked fish Tuna, 6 oz can - 40 grams of protein Pork Pork chop, average - 22 grams protein Pork loin or tenderloin, 4 oz - 29 grams Ham, 3 oz serving - 19 grams Ground pork, 1 oz raw - 5 grams; 3 oz cooked - 22 grams Light, 1 slice - 3 grams Lithuanian-style light (back light), slice - 5 - 6 grams Eggs and Dairy Egg, large - 6 grams protein Milk, 1 cup - 8 grams Cottage cheese, cup - 15 grams Yogurt, 1 cup - usually 8-12 grams, check label Soft cheeses (Mozzarella, Brie, Camembert) - 6 grams per oz Medium cheeses (Cheddar, Maltese) - 7 or 8 grams per oz [...] Split peas, cup cooked - 8 grams [place] 3 oz - 18 g protein Nuts and Seeds Peanut butter, 2 Tablespoons - 8 grams protein Almonds, cup - 8 grams Peanuts, cup - 9 grams Cashews, cup - 5 grams Pecans, cup - 2.5 grams [place] seeds, cup - 6 grams Pumpkin seeds, cup - 8 grams Flax seeds - cup - 8 grams documented in this [id number] History of Present illness Narrative* Betina Pop CNP - 09/01/2023 9:05 AM EST Video Visit Patient: Aurora Mendez Date of : 1985 (38 y.o. female) PCP: Evi Pacheco MD Video Visit Consent Statement: I have communicated my name and active licensure. The patient's identity and physical location were verified at the time of this visit. Either the patient or their legal insurance follow up representative has been informed of the risks [...] that there are some limitations compared to cqis-dw-lpjy evaluations. We elected to proceed. Chief Complaint Patient presents with Obesity Weight Loss Patient Start time: Stop time: Pt who is a Body mass index is 28.29 kg/m . Patient's history of diet, exercise, sleep, stress and appetite control reviewed and confirmed withpatient, please see the medical claims representative's note. This is a telemedicine encounter. This visit has been fully reviewed with the patient and verbal consent has been obtained. [place]: Patient here today for recheck through the medical weight management program. Patient denies any increase in cravings or hunger since last appointment. Energy levels are not at goal but she states this is chronic for her. Overall, she does feel improvement with this. Sleep is fair. She feels o verall she sleeps pretty well but has trouble [...] week and she will be having some fol low-up lab work completed to recheck her thyroid [...] loss as she has done very well withmedication. She will continue follow-up with her PCP for hypothyroidism. Patient will continue withvitamin supplementation due to history of deficiency. We [...] (two) puffs 2 (two) times aday . 1 each 2 buPROPion (WELLBUTRIN XL) [...] tablet (25 mg total) by mouth daily. 30 tablet 2 sertraline (ZOLOFT) 25 MG tablet Take 1 (one) tablet (25 mg total) by mouth nightly . 30 tablet 2 tirzepatide (Mounjaro) 15 mg/0.5 mL Pen Inject 0.5 mL (15 mg total) under the skin every 7 days . 2mL 5 zonisamide (ZONEGRAN) 50 MG capsule Take [...] disease processes and treatment protocol. Provider Location: [facility] [address] [facility] [address] Patient Location: [address] [place] [address] [address] [facility] [address] * Belén Muhammad MA - 09/01/2023 9:00 AM EST Meal Plan Breakfast: Eggs, toast, light/sausage Lunch: [...] recent Blood Pressure?: 100/60 documented in this [id number] History of Present illness Narrative* Betina Pop, LATONIA - 07/13/2023 8:42 AM EST Chief Complaint Patient presents with Obesity Weight Loss [place]: Pt who is a Body mass index is 28.86 kg/m . Patient's history of diet, exercise, sleep, stress and appetite control reviewed and confirmed withpatient, please see the medical claims representative's note. HPI: Patient here today for recheck through the [facility]. Patient denies any increase in cravings or hunger since last appointment. Energy levels are still not at goal but she does feel they are improving somewhat. Patient states that sleep is reasonable.Patient feels she has beenable to adhere to the dietary protocols as [...] Insulin resistance, 3. Overweight, 4. BMI 28.0-28.9, 5.Vitamin D deficiency, 6. Vitamin B6 deficiency, 7. [...] will follow up in 6 to 8 weeksor sooner if needed. This note was partially [...] (stable with current management). The patient is notnervous/anxious. Past Medical History: Diagnosis Date Anxiety Asthma [...] (two) puffs 2 (two) times aday . 1 each 2 buPROPion (WELLBUTRIN XL) [...] tablet (25 mg total) by mouth daily. 30 tablet 2 sertraline (ZOLOFT) 25 MG tablet Take 1 (one) tablet (25 mg total) by mouth nightly . 30 tablet 2 tirzepatide (Mounjaro) 15 mg/0.5 mL Pen Inject 0.5 mL (15 mg total) under the skin every 7 days . 2mL 5 zonisamide (ZONEGRAN) 50 MG capsule Take [...] for this patient. Rationale: Overweight (Findings) BMI * Belén Muhammad MA - 07/13/2023 8:13 AM EST Meal Plan Breakfast: Eggs, light/sausage Lunch: Nothing [...] recent Blood Pressure?: 118/76 documented in this [id number] History of Present illness Narrative* Betina Pop, LATONIA - 05/09/2023 8:33 AM EDT Video Visit Patient: Aurora Mendez Date of [...] that there are some limitations compared to tedx-pr-onih evaluations. We elected to proceed. Chief Complaint Patient presents with Obesity Weight Loss Patient Start time: Stop time: Pt who is a Body mass index is 29.19 kg/m . Patient's history of diet, exercise, sleep, stress and appetite control reviewed and confirmed withpatient, please see the medical claims representative's note. This is a telemedicine encounter. This visit has been fully reviewed with the patient and verbal consent has been obtained. [place]: Patient here today for recheck through the [facility]. Patient denies any increase in hunger or cravings since last appt. Energy levels are improving. Sleep is reasonable. Patient feels she is better able to adhere to the diet and exercise protocols as ordered since last appt.she states she has really been working on some home exercises and has really been working on getting her protein in every day. Medications were reviewed today and no problems noted. She states she istolerating medications well. Stress levels are reasonably managed [...] as current dose of levothyroxine for hypothyroidism. Jesuso discussed continuing to work on meeting dietary targets throughout the day, especially proteinto carbohydrate ratios, to better help with insulin [...] for dysphoric mood (improved) and sleep disturbance (intermittent,improving per Pt). Negative for agitation and behavioral [...] (two) puffs 2 (two) times aday . 1 each 2 buPROPion (WELLBUTRIN XL) [...] tablet (25 mg total) by mouth daily. 30 tablet 2 sertraline (ZOLOFT) 25 MG [...] disease processes and treatment protocol. Provider Location: [facility] [address] [facility] [address] Patient Location: [address] [place] [address] [place] [id number] * Belén Muhammad MA - 05/09/2023 8:04 AM EDT Meal Plan Breakfast: Nothing or eggs w/ [...] recent Blood Pressure?: 118/72 documented in this [id number] Telephone encounter Note* Telephone Encounter - Belén Muhammad MA - 04/07/2023 4:00 PM EDT JAMES 03/15JUN 23 Requested Prescriptions Pending Prescriptions Disp Refills tirzepatide (Mounjaro) 15 mg/0.5 mL Pen 2 mL 5 Sig: Inject 0.5 mL (15 mg total) under the skin every 7 days Reasons: type 2 diabetes mellitus. [id number] Miscellaneous Notes* Telephone Encounter - Belén Muhammad MA - 04/07/2023 4:00 PM EDT JAMES 03/15JUN 23 Requested Prescriptions Pending Prescriptions Disp Refills tirzepatide (Mounjaro) 15 mg/0.5 mL Pen 2 mL 5 Sig: Inject 0.5 mL (15 mg total) under the skin every 7 days Reasons: type 2 diabetes mellitus. documented in this [id number] Telephone encounter Note* Telephone Encounter - Belén Muhammad MA - 01/12/2023 8:11 AM EDT JAMES 12/10JUN 20 Requested Prescriptions Pending Prescriptions Disp Refills levothyroxine (SYNTHROID, LEVOTHROID) 137 MCG tablet 30 tablet 1 Sig: Take 1 (one) tablet (137 mcg total) by mouth once daily . [id number] Miscellaneous Notes* Telephone Encounter - Belén Muhammad MA - 01/12/2023 8:11 AM EDT JAMES 12/10JUN 20 Requested Prescriptions Pending Prescriptions Disp Refills levothyroxine (SYNTHROID, LEVOTHROID) 137 MCG tablet 30 tablet 1 Sig: Take 1 (one) tablet (137 mcg total) by mouth once daily . documented in this [id number] History of Present illness Narrative* Betina Pop CNP - 12/10/2022 9:13 AM EDT Video Visit Patient: Aurora Mendez Date of [...] that there are some limitations compared to ntne-jb-oqzz evaluations. We elected to proceed. Chief Complaint Patient presents with Obesity Weight Loss Patient Start time: Stop time: Pt who is a Body mass index is 34.53 kg/m . Patient's history of diet, exercise, sleep, stress and appetite control reviewed and confirmed withpatient, please see the medical claims representative's note. This is a telemedicine encounter. This visit has been fully reviewed with the patient and verbal consent has been obtained. [place]: Patient here today for recheck through the [facility]. Patient denies any increase in cravings [...] skips meals as she does not feel hungry.She also admits that her energy levels are very low when not eating. On those days, especially, shewill find herself wanting to take a nap [...] discussed continuing to work on coping strategies tobetter help with mood, as well as redirection [...] and importance of getting nutrients in throughout theday, especially protein. She is often skipping meals [...] (two) puffs 2 (two) times aday . 1 each 2 buPROPion (WELLBUTRIN XL) [...] tablet (25 mg total) by mouth daily. 30 tablet 2 sertraline (ZOLOFT) 25 MG [...] disease processes and treatment protocol. Provider Location: [facility] [address] [facility] [address] Patient Location: [address] [place] [address] [address] [facility] [address] * Trinity Ball MA - 12/10/2022 8:03 AM EDT Diet: What do you usually have to [...] Most recent weight: 207.5 documented in this [id number] History of Present illness Narrative* Betina Pop, LATONIA - 10/27/2022 3:02 PM EDT Video Visit Patient: Aurora Mendez Date of [...] that there are some limitations compared to nkdj-cb-qnki evaluations. We elected to proceed. Chief Complaint Patient presents with Obesity Weight Loss Patient Start time: Stop time: Pt who is a Body mass index is 36.48 kg/m . Patient's history of diet, exercise, sleep, stress and appetite control reviewed and confirmed withpatient, please see the medical claims representative's note. This is a telemedicine encounter. This visit has been fully reviewed with the patient and verbal consent has been obtained. [place]: Patient here today for recheck through the [facility]. Patient denies any increase in cravings [...] labs drawn which we will discuss again. Theresa made patient aware of results via [employer] prior to this appointment. For the rest [...] our office and will need orders at [facility]. She will continue with Wellbutrin for volume control but I willincrease dose to 300 mg to better help [...] (two) puffs 2 (two) times aday . 1 each 2 buPROPion (WELLBUTRIN XL) [...] tablet (25 mg total) by mouth daily. 30 tablet 2 sertraline (ZOLOFT) 25 MG [...] disease processes and treatment protocol. Provider Location: [facility] [address] [facility] [address] Patient Location: [address] [facility] [address] [facility] [address] * Belén Muhammad MA - 10/27/2022 8:58 AM EDT Breakfast - nothing, fasting Lunch - leftovers, [...] Most recent BP: 118/72 documented in this [id number] Telephone encounter Note* Telephone Encounter - Belén Muhammad MA - 09/14/2022 11:16 AM EST JAMES 09/08/22 10/27/22 Requested Prescriptions Pending Prescriptions Disp Refills levothyroxine (SYNTHROID, LEVOTHROID) 137 MCG tablet 30 tablet 1 Sig: Take 1 (one) tablet (137 mcg total) by mouth once daily . [id number] Miscellaneous Notes* Telephone Encounter - Belén Muhammad MA - 09/14/2022 11:16 AM EST JAMES 09/08/22 10/27/22 Requested Prescriptions Pending Prescriptions Disp Refills levothyroxine (SYNTHROID, LEVOTHROID) 137 MCG tablet 30 tablet 1 Sig: Take 1 (one) tablet (137 mcg total) by mouth once daily . documented in this [id number] History of Present illness Narrative* Betina Pop CNP - 09/08/2022 9:46 AM EST Video Visit Patient: Aurora Mendez Date of [...] that there are some limitations compared to zyva-xh-moql evaluations. We elected to proceed. Chief Complaint Patient presents with Obesity Weight Loss Patient Start time: Stop time: Pt who is a Body mass index is 38.77 kg/m . Patient's history of diet, exercise, sleep, stress and appetite control reviewed and confirmed withpatient, please see the medical claims representative's note. This is a telemedicine encounter. This visit has been fully reviewed with the patient and verbal consent has been obtained. [place]: Patient here today for recheck through the [facility]. Patient denies any increase in hunger as she still has cravings sometimes in the evening. She states that she will crave something sweet but then nothing sounds good so she goes to bed without feeling the cravings with anysnacks. Energy levels are reasonable. Sleep is reasonable. Patient feels she is able to adhere to the dietary protocols as ordered for the most part but admits that she has not really been exercisingdue to weather. Medications were reviewed today and no problems noted. She states she is toleratingall her medications well. Stress levels are reasonably [...] mg total) under the skin every 7 daysReasons: type 2 diabetes mellitus. 2 mL 1 albuterol 90 mcg/actuation inhaler Inhale 2 (two) puffs every 6 (six) hours as needed for shortnessof breath or cough . 18 g 0 budesonide-formoteroL (Symbicort) 80-4.5 mcg/actuation inhaler Inhale 2 (two) puffs 2 (two) times aday . 1 each 2 buPROPion (WELLBUTRIN XL) [...] tablet (25 mg total) by mouth daily. 30 tablet 2 sertraline (ZOLOFT) 25 MG [...] disease processes and treatment protocol. Provider Location: [facility] [address] [facility] [address] Patient Location: [address] [place] [address] [address] [facility] [address] * Belén Muhammad MA - 09/08/2022 9:01 AM EST Diet: Breakfast - fasting, will have coffee [...] Most recent weight: 233 documented in this [id number] History of Present illness Narrative* Betina Pop CNP - 07/27/2022 9:50 AM EST Chief Complaint Patient presents with Obesity Weight Loss [place]: Pt who is a Body mass index is 40.87 kg/m . Patient's history of diet, exercise, sleep, stress and appetite control reviewed and confirmed withpatient, please see the medical claims representative's note. HPI: Patient here today for recheck through the [facility]. Patient denies any increase in cravings or hunger other than this past week due to being without Mounjaro. Energy levels are not at goal but this is chronic for Pt. Patient states that sleep is reasonable. Patient feels shehas been able to adhere to the dietary protocols as ordered since last appointment but states she has had an increase in hunger and cravings this past week as she has been without her Mounjaro due tomanufacturer backorder. She also admits she has not [...] am still waiting for additional lab results andwill contact patient with those once they have returned. Patient's TSH level is not within normal limits. She is admits that she had not been taking levothyroxine for almost 2 weeks due to being sickprior to having labs drawn. She states that [...] medication for the past week due to cutter wet machine backorder. I will increase dose to 10 mg to see if this better helps with symptoms but is also easier for her to obtain due to the 7.5 mg dose being the hardest for patients to get at this point. If patient is unable to have Mounjaro filled, I discussed [facility] with [facility]. Patient will contact office to let me know. She will continue with iron and vitamin supplementation due to history of deficiency. I will make adjustments if needed based on lab results once they have been reviewed. We also discussed working on meeting dietary targets throughout the day, especially protein to carbohydrate ratios, to better help with insulinresistance. I also encouraged Pt to work on [...] (two) puffs 2 (two) times aday . 1 each 2 buPROPion (WELLBUTRIN XL) [...] tablet (25 mg total) by mouth daily. 30 tablet 2 sertraline (ZOLOFT) 25 MG [...] 40.0-44.9, adult (HCC) Vitamin D deficiency Relevant Medications [...] for this patient. Rationale: Overweight (Findings) BMI * Belén Muhammad MA - 07/27/2022 8:05 AM EST Diet: What do you usually have to [...] any problems with them? Unable to get Mounjaro as the pharmacy says it is a supplier issue documented in this [id number] History of Present illness Narrative* Betina Pop CNP - 06/17/2022 8:52 AM EDT Video Visit Patient: Aurora Mendez Date of [...] that there are some limitations compared to avxv-ap-ubph evaluations. We elected to proceed. Chief Complaint Patient presents with Weight Loss Obesity Patient Start time: Stop time: Pt who is a Body mass index is 42.6 kg/m . Patient's history of diet, exercise, sleep, stress and appetite control reviewed and confirmed withpatient, please see the medical claims representative's note. This is a telemedicine encounter. This visit has been fully reviewed with the patient and verbal consent has been obtained. [place]: Patient here today for recheck through the [facility]. Patient admits to an increase in cravings and hunger since last visit. Energy levels are not at goal. Sleep is also not atgoal. She states that some nights she feels [...] she is eating much less and is notcraving. She does report drinking quite a bit of soda stating she drinks at least a 20oz bottle of Pepsi daily. Medications were reviewed today. Pt states she has been tolerating medications well butstates she has not been taking Topamax for [...] and we will trial back on Topamax tobetter help with volume control and reward eating, especially with soda intake. She will start backon low-dose of 25 mg dosed in the [...] for sleep disturbance. Negative for agitation, behavioral problemsand dysphoric mood. The patient is not nervous/anxious. [...] (two) puffs 2 (two) times aday . 1 each 2 buPROPion (WELLBUTRIN XL) [...] tablet (25 mg total) by mouth daily. 30 tablet 2 sertraline (ZOLOFT) 25 MG tablet Take 1 (one) tablet (25 mg total) by mouth nightly . 30 tablet 1 tirzepatide (Mounjaro) 7.5 mg/0.5 mL Pen Inject 0.5 mL (7.5 mg total) under the skin every 7 days .2 mL 1 topiramate (TOPAMAX) 25 MG tablet [...] disease processes and treatment protocol. Provider Location: [facility] [address] [facility] [address] Patient Location: [address] [place] [address] [address] [facility] [address] * Cary Luna MA - 06/17/2022 8:22 AM EDT What do you usually have to eat [...] affecting your activity or exercise? Working longer hours,cleaning the house, kids hw and bed Appetite: [...] Most recent weight: 256.2 documented in this [id number] History of Present illness Narrative* Betina Pop, DIAGNOSTIC TECHNOLOGIST - 05/17/2022 10:44 AM EDT Video Visit Patient: Aurora Menedz Date of : 1985 (36 y.o. female) [...] that there are some limitations compared to diix-eq-awjr evaluations. We elected to proceed. Chief Complaint Patient presents with Weight Loss Obesity Patient Start time: Stop time: Pt who is a Body mass index is 44.26 kg/m . Patient's history of diet, exercise, sleep, stress and appetite control reviewed and confirmed withpatient, please see the medical claims representative's note. This is a telemedicine encounter. This visit has been fully reviewed with the patient and verbal consent has been obtained. [place]: Patient here today for recheck through the [facility]. Patient admits to an increase in [...] continue off of medication at this time butwe did discuss ways to work on redirection [...] vitamin supplementation due to history of deficiency. Shewill also continue with current dose of levothyroxine for hypothyroidism. We also discussed workingon meeting dietary targets throughout the day, especially protein to carbohydrate ratios, to betterhelp with insulin resistance. I also encouraged Pt [...] (two) puffs 2 (two) times aday . 1 each 2 buPROPion (WELLBUTRIN XL) [...] tablet (25 mg total) by mouth daily. 30 tablet 2 sertraline (ZOLOFT) 25 MG [...] disease processes and treatment protocol. Provider Location: [facility] WEIGHT TREATMENT [address] [facility] [address] Patient Location: [address] [facility] [address] * Cary Luna MA - 05/17/2022 10:19 AM EDT Diet: What do you usually have to [...] Most recent weight: 266 documented in this [id number] History of Present illness Narrative* Betina Pop CNP - 04/15/2022 9:58 AM EDT Chief Complaint Patient presents with Weight Loss Obesity [place]: Pt who is a Body mass index is 45 kg/m . Patient's history of diet, exercise, sleep, stress and appetite control reviewed and confirmed withpatient, please see the medical claims representative's note. HPI: Patient here today for recheck through the [place] [facility]. Patient denies any increase in cravings or hunger. Energy levels are fair. Sleep is reasonable. Patient feels she is able to adhere to the dietary protocols as ordered since last appointment but admits she has not been exercising. Pt states she had Covid last month and her energy has been slow to improve. Medications werereviewed today and no problems noted. For the [...] this well. She will continue with iron andvitamin supplementation due to history of deficiency. She will also continue with levothyroxine forhypothyroidism. Pt will have repeat lab work completed today to recheck thyroid levels and I will make adjustments as needed. We also discussed working on meeting dietary targets throughout the day, e specially protein to carbohydrate ratios, to better help with insulin resistance. I also encouragedPt to continue working on exercise within orthopedics to help with muscle acquisition. Patient willfollow up in 1 month or sooner if [...] (two) puffs 2 (two) times aday . 1 each 2 cyanocobalamin, vitamin B-12, [...] tablet (25 mg total) by mouth daily. 30 tablet 2 sertraline (ZOLOFT) 25 MG [...] for this patient. Rationale: Overweight (Findings) BMI * Cary Luna MA - 04/15/2022 9:41 AM EDT Breakfast - N/A - fast Lunch - [...] been giving me headaches documented in this [id number] History of Present illness Narrative* Betina Pop, LATONIA - 03/15/2022 9:29 AM EDT Chief Complaint Patient presents with Weight Loss Obesity [place]: Pt who is a Body mass index is 45.85 kg/m . Patient's history of diet, exercise, sleep, stress and appetite control reviewed and confirmed withpatient, please see the medical claims representative's note. HPI: Patient here today for recheck through the [facility]. Patient denies any increase in cravings or hunger. Energy levels are reasonable. Sleep is reasonable. Patient feels she is better able to adhere to the diet and exercise protocols as ordered since last appointment. Medications were reviewed today and no problems noted. She states she continues to feel improvement with herappetite control with phentermine and Trulicity. She states she is tolerating medications well. Shewas also seen by her PCP since last appointment due to ongoing leg swelling in bilateral legs. She was started on Lasix 20 mg twice daily and has been taking this consistently for the past 2 weeks. She states that her swelling has decreased tremendously and she feels a lot better. stress levels arereasonably managed but she states stress levels are [...] for appetite control as she is doing verywell with medication. She will also continue with Wellbutrin for volume control and current dose ofTrulicity for meal termination. She is also tolerating these medications well and feels improvementwith appetite control with medication. she will continue with iron and vitamin supplementation due to history of deficiency. She will also continue with levothyroxine for hypothyroidism. Pt will haverepeat lab work completed to recheck thyroid levels. We will make adjustments as needed. She will also continue follow-up with PCP for treatment of bilateral lower extremity edema with Lasix as she is seeing improvement with management. We also discussed working on meeting dietary targets throughout the day, especially protein to carbohydrate ratios, to better help with insulin resistance. I alsoencouraged Pt to continue working on exercise within [...] (two) puffs 2 (two) times aday . 1 each 2 cyanocobalamin, vitamin B-12, [...] tablet (25 mg total) by mouth daily. 30 tablet 2 sertraline (ZOLOFT) 25 MG [...] for this patient. Rationale: Overweight (Findings) BMI * Cary Luna MA - 03/15/2022 8:23 AM EDT What do you usually have to eat [...] problems with them? No documented in this [id number] History of Present illness Narrative* Betina Pop, LATONIA - 02/11/2022 10:43 AM EDT Chief Complaint Patient presents with Weight Loss Obesity [place]: Pt who is a Body mass index is 48.38 kg/m . Patient's history of diet, exercise, sleep, stress and appetite control reviewed and confirmed withpatient, please see the medical claims representative's note. HPI: Patient here today for recheck through the [facility]. Patient denies any increase in cravings [...] really needs this every day as she hasswelling in her feet and ankles daily. She [...] and vitamin supplementation due to history of deficiency.She will also continue with levothyroxine for hypothyroidism but will have repeat lab work completed today to check thyroid. We will make adjustments as needed. I will also recheck vitamin levels andelectrolytes today with lactitol. I discussed with patient [...] to help with muscle acquisition. Patient will followup in 1 month or sooner if needed. [...] (two) puffs 2 (two) times aday . 1 each 2 cyanocobalamin, vitamin B-12, [...] tablet (25 mg total) by mouth daily. 30 tablet 2 sertraline (ZOLOFT) 25 MG [...] for this patient. Rationale: Overweight (Findings) BMI * Cary Luna MA - 02/11/2022 9:58 AM EDT What do you usually have to eat [...] affecting your activity or exercise? Back pain, foot/ankleswelling, some dyspnea Appetite: Is your appetite well [...] them? Yes, no problems documented in this [id number] History of Present illness Narrative* Betina Pop CNP - 01/06/2022 12:59 PM EDT Chief Complaint Patient presents with Obesity Weight Loss [place]: Pt who is a Body mass index is 50.07 kg/m . Patient's history of diet, exercise, sleep, stress and appetite control reviewed and confirmed withpatient, please see the medical claims representative's note. HPI: Patient here today for recheck through the [facility]. Patient admits to an increase in [...] appointment which we will review today. For therest of the review of systems and exam see the EMR. Impression: 1. Atypical eating disorder, 2. Insulin resistance, 3. Morbid obesity, 4. BMI 50.0-59.9, 5. Vitamin D deficiency, 6. Vitamin B6 deficiency, 7. Iron deficiency, 8. Hypothyroidism, 9. Depression Plan: I reviewed lab work with patient. She will continue with vitamin and iron supplementation dueto history of deficiency. I will also adjust [...] will continue with Trulicity for meal termination asshe feels much improvement when taking medication. She has been without Trulicity for the past 2 weeks due to having trouble getting medication. We will start prior authorization process for patient.She will also continue with Zoloft for depression symptoms as this feels well controlled. She will also continue with Topamax for volume control and reward eating. We also discussed working on meeting dietary targets throughout the day, especially protein to carbohydrate ratios, to better help withinsulin resistance. I also encouraged Pt to continue working on exercise within orthopedics to helpwith muscle acquisition. Patient will follow up in [...] (two) puffs 2 (two) times aday . 1 each 2 inhaler, assist devices [...] mouth daily. (Patient not taking: Reported on 01/06/2022 .) [...] C) Ht 5' 5 (1.651 m) Wt (!)136.5 kg (300 lb 14.4 oz) SpO2 99% [...] for this patient. Rationale: Overweight (Findings) BMI * Andie Linares MA - 01/06/2022 12:30 PM EDT Breakfast - coffee Lunch - eggs, salad, [...] Most recent weight: 300 documented in this [id number] Telephone encounter Note* Telephone Encounter - Cary Luna MA - 12/08/2021 8:52 AM EDT JAMES: 11/30: 01/06 Requested Prescriptions Pending Prescriptions [...] mcg total) under the tongue daily . [id number] Miscellaneous Notes* Telephone Encounter - Cary Luna MA - 12/08/2021 8:52 AM EDT JAMES: 11/30: 01/06 Requested Prescriptions Pending Prescriptions [...] the tongue daily . documented in this [id number] History of Present illness Narrative* Christa Carcamo MA - 11/30/2021 12:10 PM EDT Diet: What do you usually have to [...] - GI issues Most recent weight: 306.8 * Lamberto Russo MD - 11/29/2021 10:19 PM EDT Chief Complaint Patient presents with Obesity Weight Loss Patient Start time: Stop time: Pt who is a Body mass index is 51.05 kg/m . Ht 5' 5 (1.651 m) Wt (!) 139.2 kg (306 lb 12.8 oz) Comment: per pt BMI 51.05 kg/m Patient's history of diet, exercise, sleep, stress and appetite control reviewed and confirmed withpatient, please see the medical claims representative's note. This is a telemedicine encounter. This visit has been fully reviewed with the patient and verbal consent has been obtained. [place]: Patient here today for recheck through the [place] [facility]. Patient admits to an increase in hunger/cravings. Energy levels are fair. Sleep is reasonable. Diet and exercise protocols are difficult to maintain due to appetite. Medications were reviewed today. Stress levels are manageable c urrently. For the rest of the review of [...] see if can get her access to [facility] since she has failed metformin at this [...] (two) puffs 2 (two) times aday . 1 each 2 buPROPion (WELLBUTRIN XL) 300 MG 24 hr tablet Take 1 (one) tablet (300 mg total) by mouth daily . 30 tablet 11 busPIRone (BUSPAR) 5 MG tablet Take 1 (one) tablet (5 mg total) by mouth 3 (three) times a day . 90tablet 1 cyanocobalamin, vitamin B-12, 1,000 mcg Subl [...] . 30 tablet 3 miscellaneous medical supply [facility] [place] dx obesity class III . [...] tablet (25 mg total) by mouth daily. 30 tablet 2 sertraline (ZOLOFT) 25 MG [...] disease processes and treatment protocol. Provider Location: [facility] WE[facility] TREATMENT [address] [facility] [address] Patient Location: [address] [place] [address] WEIGHT TREATMENT [address] [facility] [address] Virtual Visit [facility] 11/30/21 Lamberto Russo MD Provider Location: Patient Location Commodity Loan Clerk: None Patient Location: home Patient: Aurora Mendez [...] there are inherent diagnostic limitations compared to dqae-fs-guxl evaluations. They elected to proceed with the telemedicine consultation. documented in this [id number] History of Present illness Narrative* Lamberto Russo MD - 10/23/2021 11:44 AM EST Chief Complaint Patient presents with Weight Loss Obesity Patient Start time: Stop time: Pt who is a Body mass index is 50.06 kg/m . Ht 5' 5 (1.651 m) Wt (!) 136.4 kg (300 lb 12.8 oz) Comment: pt. reported BMI 50.06 kg/m Patient's history of diet, exercise, sleep, stress and appetite control reviewed and confirmed withpatient, please see the medical claims representative's note. This is a telemedicine encounter. This visit has been fully reviewed with the patient and verbal consent has been obtained. [place]: Patient here today for recheck through the [place] [facility]. Patient admits to an increase in hunger/cravings. Energy levels are fair. Sleep is reasonable. Diet and exercise protocols are difficult to maintain due to appetite. Medications were reviewed today. Stress levels are manageable c urrently. For the rest of the review of systems and exam see the EMR. States she recently moved andso she was off target with her dietary [...] (two) puffs 2 (two) times aday . 1 each 2 buPROPion (WELLBUTRIN XL) 300 MG 24 hr tablet Take 1 (one) tablet (300 mg total) by mouth daily . 30 tablet 11 busPIRone (BUSPAR) 5 MG tablet Take 1 (one) tablet (5 mg total) by mouth 3 (three) times a day . 90tablet 1 cyanocobalamin, vitamin B-12, 1,000 mcg Subl [...] . 30 tablet 1 miscellaneous medical supply [facility] Weight Scale dx obesity class III . [...] tablet (25 mg total) by mouth daily. 30 tablet 2 sertraline (ZOLOFT) 25 MG [...] disease processes and treatment protocol. Provider Location: [facility] WEIGHT TREATMENT [address] [facility] [address] Patient Location: [address] [place] [address] [facility] [address] [facility] [id number] Virtual Visit [facility] 10/23/21 Lamberto Russo MD Provider Location: Patient Location Commodity Loan Clerk: None Patient Location: home Patient: Aurora Mendez [...] there are inherent diagnostic limitations compared to ovtu-iq-yhef evaluations. They elected to proceed with the telemedicine consultation. * Cary Luna MA - 10/23/2021 9:17 AM EST What do you usually have to eat [...] Most recent weight: 300.8 documented in this [id number] Instructions* Patient Instructions* Lamberto Russo MD - 09/09/2021 1:59 PM [...] good reference if needed documented in this [id number] History of Present illness Narrative* Lamberto Russo MD - 09/09/2021 1:55 PM EST Chief Complaint Patient presents with Obesity Weight Loss Patient Start time: Stop time: Pt who is a Body mass index is 50.12 kg/m . Ht 5' 5 (1.651 m) Wt (!) 136.6 kg (301 lb 3.2 oz) Comment: per pt LMP 08/23/2021 BMI 50.12 kg/m Patient's history of diet, exercise, sleep, stress and appetite control reviewed and confirmed withpatient, please see the medical claims representative's note. This is a telemedicine encounter. This visit has been fully reviewed with the patient and verbal consent has been obtained. [place]: Patient here today for recheck through the [facility]. Patient admits to an increase in hunger/cravings. Energy levels are fair. Sleep is reasonable. Diet and exercise protocols are difficult to maintain due to appetite. Medications were reviewed today. Stress levels are manageable c urrently. For the rest of the review of systems and exam see the EMR. Struggling with reward eatingbehavior. ASSESSMENT: 1. Atypical eating disorder 2. Insulin resistance metFORMIN (GLUCOPHAGE-XR) 750 MG 24 hr tablet 3. Vitamin D deficiency 4. Vitamin B6 deficiency 5. Obesity, morbid, BMI 50 or higher (HCC) 6. BMI 50.0-59.9, adult ([facility]) 7. Encounter for pre-bariatric surgery counseling and [...] (two) puffs 2 (two) times aday . 1 each 2 buPROPion (WELLBUTRIN XL) 300 MG 24 hr tablet Take 1 (one) tablet (300 mg total) by mouth daily . 30 tablet 11 busPIRone (BUSPAR) 5 MG tablet Take 1 (one) tablet (5 mg total) by mouth 3 (three) times a day . 90tablet 1 cyanocobalamin, vitamin B-12, 1,000 mcg Subl [...] . 30 tablet 1 miscellaneous medical supply [facility] [place] Scale dx obesity class III . [...] tablet (25 mg total) by mouth daily. 30 tablet 2 sertraline (ZOLOFT) 25 MG [...] deficiency Obesity, morbid, BMI 50 or higher ([facility]) BMI 50.0-59.9, adult (HCC) Encounter for pre-bariatric surgery counseling and education Continue the currently prescribed calorie load and composition. Return in about 4 weeks (around 10/07/2021) for Recheck. Counseling Time: minutes more than 50% of the time face to face discussing findings and coordinating care regarding medication management and education for disease processes and treatment protocol. Provider Location: [facility] WEIGHT TREATMENT [address] [facility] [address] Patient Location: [address] [place] [id number] [facility] WEIGHT TREATMENT [address] [facility] [address] Virtual Visit [facility] 09/11/21 Lamberto Russo MD Provider Location: Patient Location Commodity Loan Clerk: None Patient Location: home Patient: Aurora Mendez [...] there are inherent diagnostic limitations compared to uvcd-tq-zaov evaluations. They elected to proceed with the telemedicine consultation. * Christa Carcamo MA - 09/09/2021 9:50 AM EST Diet: What do you usually have to [...] Most recent weight: 301.2 documented in this [id number] Miscellaneous Notes* Assessment & Plan Note - Evi Pacheco MD - 08/28/2021 10:10 AM EST Associated Problem(s): Rectal bleeding This may have been in the setting of the internal hemorrhoids. With her concern and significant family history of colon cancer I did recommend her for diagnostic colonoscopy. * Assessment & Plan Note - Evi Pacheco MD - 08/28/2021 10:09 AM EST Associated Problem(s): Internal hemorrhoids This is a [...] takes the Colace daily. documented in this [id number] History of Present illness Narrative* Evi Pacheco MD - 08/28/2021 10:03 AM EST Aurora Mendez is a 36 y.o. female [...] capsule Return for Next scheduled follow up. Aurora Mendez is a 36 y.o. female [...] as well. She has not tried any edce-xwe-dhamknx medications for her constipation. She is also [...] (two) puffs 2 (two) times aday . 1 each 2 buPROPion (WELLBUTRIN XL) 300 MG 24 hr tablet Take 1 (one) tablet (300 mg total) by mouth daily . 30 tablet 11 busPIRone (BUSPAR) 5 MG tablet Take 1 (one) tablet (5 mg total) by mouth 3 (three) times a day . 90tablet 1 cyanocobalamin, vitamin B-12, 1,000 mcg Subl [...] . 30 tablet 1 miscellaneous medical supply [facility] [place] Scale dx obesity class III . 1 each 0 naltrexone (DEPADE, REVIA) 50 mg tablet 1/4 tab po every day with breakfast for 2 weeks then 1/4 tab po with breakfast and 1/4 tab with lunch . 15 tablet 1 pyridoxine, vitamin B6, (vitamin B-6) 25 MG tablet Take 1 (one) tablet (25 mg total) by mouth daily. 30 tablet 2 sertraline (ZOLOFT) 25 MG [...] stool and constipation. Negative for abdominal pain, nauseaand rectal pain. Musculoskeletal: Positive for back pain. Skin: Negative for rash and wound. Neurological: Negative for headaches. Physical Exam: BP 123/84 (BP Location: Left arm, Patient Position: Sitting, BP Cuff Size: Adult) Pulse 82 Temp97.8 F (36.6 C) (Temporal) Resp 16 Ht [...] Exam Vitals reviewed. Exam conducted with a logistics planner present. Constitutional: General: She is not in [...] this chart may have been created with [employer] voice recognition software. Occasional wrong-word or sound-like substitutions may have occurred due to inherent limitations of the voice recognition software. Please read the chart carefully and recognize, using context, where the substitutions have occurred. For any new medications prescribed today, patient was educated about indications for the medication, how to take the medication and potential side effects of the medications. * Aurora Roblero LPN - 08/28/2021 9:27 AM EST Examination chaperoned by Aurora Roblero. documented in this [id number] Instructions* Patient Instructions* Evi Pacheco MD - 08/28/2021 9:47 AM [...] your doctor if you can take an zegj-vaq-uwsgtvz medicine. Keep the anal area clean, but be gentle. Use water and a fragrance-free soap, or use baby wipes or medicated pads such as Tucks. Wear cotton underwear and loose clothing to decrease moisture in the anal area. Eat more fiber. Include foods such as whole-grain breads and cereals, raw vegetables, raw and driedfruits, and beans. Drink plenty of fluids. If you have kidney, heart, or liver disease and have to limit fluids, talk with your doctor before you increase the amount of fluids you drink. Use a stool softener that contains bran or psyllium. You can save money by buying bran or psyllium (available in bulk at most [employer] food stores) and sprinkling it on foods or [...] Log into your personal health record on https://[email or web address].[email or web address] and enter F228 in the Education box to learn more about Hemorrhoids: Care Instructions. Current as of: April 22, 2021 Content Version: 13.1 [employer]. Care instructions adapted under license by your healthcare professional. If you have questions about a medical condition or this instruction, always ask your healthcare professional. [employer] disclaims any warranty or liability for your use of this information. documented in this [id number] History of Present illness Narrative* aCry Luna MA - 07/31/2021 8:02 AM EST Diet: What do you usually have to [...] with them? No Most recent weight: 294.8 * Lamberto Russo MD - 07/30/2021 9:50 PM EST Chief Complaint Patient presents with Obesity Weight Loss Patient Start time: Stop time: Pt who is a Body mass index is 47.61 kg/m . Ht 5' 5.98 (1.676 m) Wt 133.7 kg (294 lb 12.8 oz) Comment: pt. reported BMI 47.61 kg/m Patient's history of diet, exercise, sleep, stress and appetite control reviewed and confirmed withpatient, please see the medical claims representative's note. This is a telemedicine encounter. This visit has been fully reviewed with the patient and verbal consent has been obtained. [place]: Patient here today for recheck through the [facility]. Patient admits to an increase in hunger/cravings. Energy levels are fair. Sleep is reasonable. Diet and exercise protocols are difficult to maintain due to appetite. Medications were reviewed today. Stress levels are manageable c urrently. For the rest of the review of [...] Obesity, Class III, BMI 40-49.9 (morbid obesity) ([facility]) topiramate (TOPAMAX) 100 MG tablet 6. BMI 45.0-49.9, adult ([facility]) Plan: Work on macronutrient targets in [...] on her current insurance for trial. We discuss ed having her take it with breakfast to help with the insulin resistant state. Also add some naltrexone low-dose to affect volume and reward. She needs to make sure there is a week between dose increments. We will see that helps a little bit with volume by the interplay with her Wellbutrin and alsoreward center blunting to allow for better redirection. [...] (two) puffs 2 (two) times aday . 1 each 2 buPROPion (WELLBUTRIN XL) 300 MG 24 hr tablet Take 1 (one) tablet (300 mg total) by mouth daily . 30 tablet 11 busPIRone (BUSPAR) 5 MG tablet Take 1 (one) tablet (5 mg total) by mouth 3 (three) times a day . 90tablet 1 cyanocobalamin, vitamin B-12, 1,000 mcg Subl [...] . 30 tablet 1 miscellaneous medical supply [facility] Weight Scale dx obesity class III . [...] tablet (25 mg total) by mouth daily. 30 tablet 2 sertraline (ZOLOFT) 25 MG [...] disease processes and treatment protocol. Provider Location: [facility] WEIGHT TREATMENT [address] [facility] [address] Patient Location: [address] [place] [id number] [facility] WEIGHT TREATMENT [address] [facility] [address] Virtual Visit [facility] 07/31/21 Lamberto Russo MD Provider Location: Patient Location Commodity Loan Clerk: None Patient Location: home Patient: Aurora Mendez [...] there are inherent diagnostic limitations compared to sesp-yy-wbgj evaluations. They elected to proceed with the telemedicine consultation. documented in this [id number] History of Present illness Narrative* Christa Carcamo MA - 07/03/2021 9:04 AM EST Diet: What do you usually have to [...] with them? No Most recent weight: 295.0 * Lamberto Russo MD - 07/03/2021 8:23 AM EST Chief Complaint Patient presents with Obesity Weight Loss Patient Start time: Stop time: Pt who is a Body mass index is 47.61 kg/m . Ht 5' 6 (1.676 m) Wt 133.8 kg (295 lb) Comment: per pt BMI 47.61 kg/m Patient's history of diet, exercise, sleep, stress and appetite control reviewed and confirmed withpatient, please see the medical claims representative's note. This is a telemedicine encounter. This visit has been fully reviewed with the patient and verbal consent has been obtained. [place]: Patient here today for recheck through the [place] [facility] [place]. Patient denies any increase in cravings or [...] Obesity, Class III, BMI 40-49.9 (morbid obesity) ([facility]) 9. BMI 45.0-49.9, adult ([facility]) Plan: Work on macronutrient targets and diet regular exercise within limits orthopedics will escalate theTopamax for the reward eating behavior. Work on [...] (two) puffs 2 (two) times aday . 1 each 2 buPROPion (WELLBUTRIN XL) 300 MG 24 hr tablet Take 1 (one) tablet (300 mg total) by mouth daily . 30 tablet 11 busPIRone (BUSPAR) 5 MG tablet Take 1 (one) tablet (5 mg total) by mouth 3 (three) times a day . 90tablet 1 cyanocobalamin, vitamin B-12, 1,000 mcg Subl [...] . 30 tablet 3 miscellaneous medical supply [facility] [place] dx obesity class III . 1 each 0 predniSONE (DELTASONE) 10 MG tablet 4 tablets daily x 3 days, 3 tablets daily x 3 days, 2 tablets daily x 3 days, 1 tablet daily x 3 days . 30 tablet 0 pyridoxine, vitamin B6, (vitamin B-6) 25 MG tablet Take 1 (one) tablet (25 mg total) by mouth daily. 30 tablet 2 sertraline (ZOLOFT) 25 MG [...] disease processes and treatment protocol. Provider Location: [facility] WEIGHT TREATMENT [address] [facility] [id number] Patient Location: [address] [place], [place] [address] [facility] WEIGHT TRE[facility]MENT [address] [facility] [id number] Virtual Visit [facility] 07/03/21 Lamberto Russo MD Provider Location: Patient Location Commodity Loan Clerk: None Patient Location: home Patient: Aurora Mnedez Date of : 1985 (36 y.o. female) [...] there are inherent diagnostic limitations compared to qfvn-fw-krpk evaluations. They elected to proceed with the telemedicine consultation. documented in this [id number] History of Present illness Narrative* Lamberto Russo MD - 06/11/2021 8:[address] Pacheco, Thanks for taking the [...] I would use the analogy of a pump rebuilder adjusting a hypertensive regimen started by primary care to getter better outcomes on a c ardiomyopathy as well as the hypertensive state. We also look for other diseases caused or worsenedby the obese state. In reference to the case mentioned, obesity does have some phenotypes that can cause predisposed individuals to develop asthma. The concern with the patient's persistent cough wasthat she may be one of those individuals, [...] forward to working with you, Dr Russo https://www.ncbi.nlm.nih.gov/pmc/articles/EHF1119910/ * Evi Pacheco MD - 06/08/2021 1:45 PM EDT Aurora Mendez is a 36 y.o. female Video Visit [facility] [address] [facility] [address] [place] [address] Via Real-time Synchronous Audiovisual [facility] 06/08/2021 Evi Pacheco MD Provider Location: Office Patient Location Commodity Loan Clerk: None Patient Location: Patient's Home Patient: Aurora [...] that there are some limitations compared to gqhs-pf-nxmn evaluations. We elected to proceed. Assessment/Plan: Problem [...] myselfor weight loss provider but not both. Relevant Medications busPIRone (BUSPAR) 5 MG tablet Return for Next scheduled follow up. Aurora Mendez is a 36 y.o. female [...] (two) puffs 2 (two) times aday . 1 each 2 busPIRone (BUSPAR) 5 MG tablet Take 1 (one) tablet (5 mg total) by mouth 3 (three) times a day . 90tablet 1 ergocalciferol (ERGOCALCIFEROL) 1,250 mcg (50,000 unit) [...] tablet (25 mg total) by mouth daily. 30 tablet 2 sertraline (ZOLOFT) 25 MG [...] . 1 each 0 miscellaneous medical supply [facility] [place] Scale dx obesity class III . [...] this chart may have been created with Paperlit voice recognition software. Occasional wrong-word or sound-like substitutions may have occurred due to inherent limitations of the voice recognition software. Please read the chart carefully and recognize, using context, where the substitutions have occurred. For any new medications prescribed today, patient was educated about indications for the medication, how to take the medication and potential side effects of the medications. documented in this [id number] Miscellaneous Notes* Assessment & Plan Note - Evi Pacheco MD - 06/08/2021 2:01 PM EDT Associated Problem(s): Cough 6 weeks s/p viral upper respiratory infection. Her weight loss provider did order a PFT and startedher on Symbicort fo asthma. I reviewed the PFT, concern for small airway disease with response to abronchodilator. I prescribed a short acting beta iraida today along with some as needed cough medication. * Assessment & Plan Note - Evi Pacheco MD - 06/08/2021 2:00 PM EDT Associated Problem(s): Anxiety and depression Chronic. She is wanting to continue the Buspar which I refilled per request. She was started on Zoloft and states she is still on Wellbutrin as well. May need to discussed management by either myselfor weight loss provider but not both. documented in this [id number] Miscellaneous Notes* Assessment & Plan Note - Evi Pacheco MD - 06/08/2021 2:01 PM EDT Associated Problem(s): Cough 6 weeks s/p viral upper respiratory infection. Her weight loss provider did order a PFT and startedher on Symbicort fo asthma. I reviewed the PFT, concern for small airway disease with response to abronchodilator. I prescribed a short acting beta iraida today along with some as needed cough medication. * Assessment & Plan Note - Evi Pacheco MD - 06/08/2021 2:00 PM EDT Associated Problem(s): Anxiety and depression Chronic. She is wanting to continue the Buspar which I refilled per request. She was started on Zoloft and states she is still on Wellbutrin as well. May need to discussed management by either myselfor weight loss provider but not both. documented in this [id number] History of Present illness Narrative* Evi Pacheco MD - 06/08/2021 1:45 PM EDT Aurora Mendez is a 36 y.o. female Video Visit [facility] [address] [place] [address] [facility] [address] [place] [id number] Via Real-time Synchronous Audiovisual [facility] 06/08/2021 Evi Pacheco MD Provider Location: Office Patient Location Commodity Loan Clerk: None Patient Location: Patient's Home Patient: Aurora [...] that there are some limitations compared to pjjx-bh-rdyy evaluations. We elected to proceed. Assessment/Plan: Problem [...] myselfor weight loss provider but not both. Relevant Medications busPIRone (BUSPAR) 5 MG tablet Return for Next scheduled follow up. Aurora Mendez is a 36 y.o. female [...] (two) puffs 2 (two) times aday . 1 each 2 busPIRone (BUSPAR) 5 MG tablet Take 1 (one) tablet (5 mg total) by mouth 3 (three) times a day . 90tablet 1 ergocalciferol (ERGOCALCIFEROL) 1,250 mcg (50,000 unit) [...] tablet (25 mg total) by mouth daily. 30 tablet 2 sertraline (ZOLOFT) 25 MG [...] . 1 each 0 miscellaneous medical supply [facility] Weight Scale dx obesity class III . [...] this chart may have been created with Paperlit voice recognition software. Occasional wrong-word or sound-like substitutions may have occurred due to inherent limitations of the voice recognition software. Please read the chart carefully and recognize, using context, where the substitutions have occurred. For any new medications prescribed today, patient was educated about indications for the medication, how to take the medication and potential side effects of the medications. documented in this [id number] History of Present illness Narrative* Lamberto Russo MD - 06/02/2021 1:18 PM EDT Chief Complaint Patient presents with Weight Loss Obesity Patient Start time: Stop time: Pt who is a Body mass index is 46.55 kg/m . Ht 5' 6 (1.676 m) Wt 130.8 kg (288 lb 6.4 oz) Comment: per pt BMI 46.55 kg/m Patient's history of diet, exercise, sleep, stress and appetite control reviewed and confirmed withpatient, please see the medical claims representative's note. This is a telemedicine encounter. This visit has been fully reviewed with the patient and verbal consent has been obtained. [place]: Patient here today for recheck through the [place] [facility]. Patient admits to an increase in hunger/cravings. Energy levels are fair. Sleep is reasonable. Diet and exercise protocols are difficult to maintain due to appetite. Medications were reviewed today. Stress levels are manageable c urrently. For the rest of the review of systems and exam see the EMR. She has been ill for the last4 weeks and that is impact her activity levels as well as dietary strategy. ASSESSMENT: 1. Atypical eating disorder 2. Lumbar radiculopathy 3. Vitamin D deficiency 4. Vitamin B6 deficiency 5. Mild intermittent asthma, unspecified whether complicated budesonide- formoteroL (Symbicort) 80-4.5 mcg/actuation inhaler inhaler, assist devices ([employer]) Spcr 6. Obesity, Class II, BMI 35-39.9 topiramate (TOPAMAX) 50 MG tablet 7. Other specified hypothyroidism levothyroxine (SYNTHROID, LEVOTHROID) 175 MCG tablet 8. Depression, unspecified depression type sertraline (ZOLOFT) 25 MG tablet 9. BMI 45.0-49.9, adult ([facility]) Plan: Work on macronutrient targets and diet regular exercise within the limits of orthopedics her pulmonary function so some reactive airway component consistent with mild intermittent asthma which is borderline. We will move to a Symbicort inhaler and will use that consistently while she has the wheezing and tightness gradually move that to an as-needed basis continue thyroid supplementation continueher Topamax and sertraline for both mood disorder [...] Disease of thyroid gland hypothyroid Hodgkin's lymphoma ([facility]) 09/2011 Lymphoma, Hodgkin's (HCC) Preeclampsia previous [...] Friends and Family: Not on file Attends [employer] Services: Not on file Active Member of [...] (two) puffs 2 (two) times aday . 1 each 2 buPROPion (WELLBUTRIN XL) [...] . 30 tablet 3 miscellaneous medical supply Misc Weight Scale dx obesity class III . 1 each 0 pyridoxine, vitamin B6, (vitamin B-6) 25 MG tablet Take 1 (one) tablet (25 mg total) by mouth daily. 30 tablet 2 sertraline (ZOLOFT) 25 MG [...] disease processes and treatment protocol. Provider Location: [facility] WEIGHT TREATMENT [address] [facility] [address] Patient Location: [address] [place] [address] WEIGHT TREATMENT [address] [facility] [id number] Virtual Visit [facility] 06/02/21 Lamberto Russo MD Provider Location: Patient Location Commodity Loan Clerk: None Patient Location: home Patient: Aurora Mendez [...] there are inherent diagnostic limitations compared to wwmw-bd-ivyh evaluations. They elected to proceed with the telemedicine consultation. * Christa Carcamo MA - 06/02/2021 11:16 AM EDT Diet: Breakfast - cereal, high protein oatmeal, [...] Blood Pressure: not sure documented in this [id number] History of Present illness Narrative* Cary Luna MA - 04/28/2021 8:14 AM EDT Diet: What do you usually have to [...] of protein and carbohydrate are getting a day?1900 to 1190. Still having trouble with carbs, [...] issues. Most recent weight: no scale yet * Lamberto Russo MD - 04/27/2021 10:26 PM EDT Chief Complaint Patient presents with Weight Loss Obesity Patient Start time: Stop time: Pt who is a Body mass index is 47.94 kg/m . Ht 5' 6 (1.676 m) Wt 134.7 kg (297 lb) Comment: last recorded weight BMI 47.94 kg/m Patient's history of diet, exercise, sleep, stress and appetite control reviewed and confirmed withpatient, please see the medical claims representative's note. This is a telemedicine encounter. This visit has been fully reviewed with the patient and verbal consent has been obtained. [place]: Patient here today for recheck through the [place] [facility]. Patient admits to an increase in hunger/cravings. Energy levels are fair. Sleep is reasonable. Diet and exercise protocols are difficult to maintain due to appetite. Medications were reviewed today. Stress levels are manageable c urrently. For the rest of the review of [...] obesity) (HCC) cyanocobalamin, vitamin B-12, 1,000 mcg [facility] miscellaneous medical supply [facility] 8. BMI 45.0-49.9, adult (HCC) 9. Lumbar [...] levels. She did have on imaging some evidencefor fatty liver which further suggest insulin resistance physiology. Adjusted down her thyroid doseas she is hyperthyroid clinically based on lab [...] Friends and Family: Not on file Attends [employer] Services: Not on file Active Member of [...] . 30 tablet 1 miscellaneous medical supply [facility] Weight Scale dx obesity class III . 1 each 0 pyridoxine, vitamin B6, (vitamin B-6) 25 MG tablet Take 1 (one) tablet (25 mg total) by mouth daily. 30 tablet 2 sertraline (ZOLOFT) 25 MG [...] B-12, 1,000 mcg Subl miscellaneous medical supply [facility] BMI 45.0-49.9, adult (HCC) Lumbar radiculopathy Relevant [...] disease processes and treatment protocol. Provider Location: [facility] WEIGHT TREATMENT [address] [facility] [address] Patient Location: [address] [facility] [address] [facility] WEIGHT TREATMENT [address] [facility] [address] Virtual Visit [facility] 04/28/21 Lamberto Russo MD Provider Location: Patient Location Commodity Loan Clerk: None Patient Location: home Patient: Aurora Mendez [...] there are inherent diagnostic limitations compared to dmah-kz-lifu evaluations. They elected to proceed with the telemedicine consultation. documented in this [id number] History of Present illness Narrative* Alem Barnett RD - 04/14/2021 3:36 PM EDT Medical Weight Management Nutrition Visit 3:30-4:20 pm [...] exercising regularly. Intervention: Carlos Enrique fallon of [facility] Program: *Meal Plan [...] more active lifestyle and not do it allat once. Start with 5 or 10 minutes [...] Discussed the variety of high protein supplement brandsand flavors 25-30 grams protein may be needed [...] 40% protein and 40% fat. Handouts Given: [facility] Handout Medical Weight Management Goal Setting for exercise How Psychologists Help with Weight Management Mindful Eating Food Group Lists Protein Supplement List Personal Meal Plan Goals Addressed This Visit's Progress Good Nutrition 04/14/21 Plan menus 3 days at a time. Log food in [employer]. Note: Losing more than 2 pounds a [...] contact information and encouraged to send a [employer] message with any questions or concerns. Alem Barnett RDN, LD, CDCES documented in this [id number] History of Present illness Narrative* Lamberto Russo MD - 04/14/2021 2:02 PM EDT Chief Complaint Patient presents with Weight Gain [place]: Patient here today for consultation through the [facility]. Patient is a 35 y.o. [1]female struggle with her weight since early adolescence. She is gained weight loss weight multiple times with multiple different techniques. She has never been able to keep it off longer term. Really seem to accelerate after and after being diagnosed with hypothyroidism. 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 States cravings for sweets and cola are the most challenging components. She does complain of dyspnea on exertion. States she was treated for Hodgkin's lymphoma in 2011 and having chemo radiation. Predominantly radiation to [...] symptomatology is up 3-4 times a night Sherman Sleepiness Scale is 9. She wakes up tired. Moods are challenged Dunham Depression Inventory score is 24. Reviewed her medicationshere today. Past medical family social history full [...] Fat, Quantitative Pancreatic Elastase, Fecal Celiac Serology [place] Panel Celiac Associated HLA_DQ Typing Dyspnea, unspecified [...] feedback for carbonated beverages. We will get Revistronic testing for evaluation for pharmacodynamic options if she feels the Zoloft. Look towards Qsymia as a potential option in the future to consolidate some of her medications to help with volume control. She may be a reasonable candidate for GLP-1 agonist as well in the future recheck2 weeks after lab assessments complete evaluate for [...] social history, past surgicalhistory and problem list See the sheet. Review [...] Friends and Family: Not on file Attends [employer] Services: Not on file Active Member of [...] Fat, Quantitative Pancreatic Elastase, Fecal Celiac Serology [place] Panel Celiac Associated HLA_DQ Typing Dyspnea, unspecified [...] coping mechanisms with reward eating Behavioral Lifestyle [id number] and jaden without calories and genesight for [...] and coordinating care RE:diet exercise and meds * Christa Carcamo MA - 04/14/2021 1:41 PM EDT Diet: What do you usually have to [...] mood? Anxious & depressed documented in this [id number] History of Present illness Narrative* Alejandra Ying MD - 03/25/2021 11:58 AM EDT Impression: 1. Gastrocnemius tear, right, initial encounter [...] was walking from her car towards a restaurant.She felt a popping and pulling sensation. Then [...] been difficult to wear. She is taking siqr-gij-rikicfn medication for pain. She has children at home. 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 She is not [...] status reviewed and updated as appropriate in [facility]. A 10-system review of systems was [...] CC: Evi Pacheco MD [facility]* Diagnosis Anxiety and depression documented in this [...] Intestinal malabsorption, unspecified type BMI 45.0-49.9, adult (HCC) Exposure to COVID-19 virus [facility] Diagnosis Atypical eating disorder- Primary Vitamin D deficiency Vitamin B6 deficiency Iron deficiency Disorders of iron metabolism Hypothyroidism (acquired) Unspecified hypothyroidism Other specified hypothyroidism Obesity, Class III, BMI 40-49.9 (morbid obesity) (HCC) BMI 45.0-49.9, adult (HCC) Lumbar radiculopathy Thoracic or lumbosacral neuritis or radiculitis, unspecified Patellofemoral stress syndrome, unspecified laterality Fatty liver Other chronic nonalcoholic liver disease Encounter for screening examination for impaired glucose regulation and diabetes mellitus [facility]* Diagnosis Atypical eating disorder- Primary Lumbar radiculopathy Thoracic or lumbosacral neuritis or radiculitis, unspecified Vitamin D deficiency Vitamin B6 deficiency Mild intermittent asthma, unspecified whether complicated Obesity, Class II, BMI 35-39.9 Other specified hypothyroidism Depression, unspecified depression type BMI 45.0-49.9, adult (HCC) [facility]* Diagnosis Cough- Primary Anxiety and depression [facility] Diagnosis Cough- Primary Anxiety and depression [facility]* Diagnosis Screening for viral disease- Primary Special screening examination for unspecified viral disease [facility]* Diagnosis [...] [facility]* Diagnosis Internal hemorrhoids- Primary Internal hemorrhoids without mention of complication Rectal bleeding Hemorrhage of rectum and anus [facility]* Diagnosis Atypical eating disorder- Primary Insulin resistance Other abnormal glucose Vitamin D deficiency Vitamin B6 deficiency Obesity, morbid, BMI 50 or higher (HCC) BMI 50.0-59.9, adult (HCC) Encounter for pre-bariatric surgery counseling and education [facility] Diagnosis Atypical eating disorder- Primary Insulin resistance Other abnormal glucose Vitamin D deficiency Vitamin B6 deficiency Encounter for pre-bariatric surgery counseling and education Obesity, morbid, BMI 50 or higher (HCC) BMI 50.0-59.9, adult (HCC) Iron deficiency Disorders of iron metabolism Hypothyroidism (acquired) Unspecified hypothyroidism [facility] Diagnosis Atypical eating disorder- Primary Vitamin D deficiency Insulin resistance Other abnormal glucose Vitamin B6 deficiency Encounter for pre-bariatric surgery counseling and education Iron deficiency Disorders of iron metabolism Obesity, morbid, BMI 50 or higher (HCC) BMI 50.0-59.9, adult ([facility]) [facility] Diagnosis Anxiety and depression Vitamin D deficiency Obesity, Class III, BMI 40-49.9 (morbid obesity) ([facility]) [facility] Diagnosis Atypical eating disorder- Primary Insulin resistance Other abnormal glucose Obesity, morbid, BMI 50 or higher ([facility]) BMI 50.0-59.9, adult ([facility]) Vitamin D deficiency Vitamin B6 deficiency Iron deficiency Disorders of iron metabolism Other specified hypothyroidism Depression, unspecified depression type [facility]* Diagnosis Obesity, morbid, BMI 50 or higher ([facility]) [facility] Diagnosis Atypical eating disorder- Primary Insulin resistance Other abnormal glucose Obesity, morbid, BMI 50 or higher ([facility]) Obesity, Class III, BMI 40-49.9 (morbid obesity) ([facility]) BMI 45.0-49.9, adult ([facility]) Vitamin D deficiency Vitamin B6 deficiency Iron deficiency Disorders of iron metabolism Hypothyroidism (acquired) Unspecified hypothyroidism Leg swelling Swelling of limb [facility] Diagnosis Atypical eating disorder- Primary Insulin resistance Other abnormal glucose Obesity, Class III, BMI 40-49.9 (morbid obesity) ([facility]) BMI 45.0-49.9, adult ([facility]) Vitamin D deficiency Vitamin B6 deficiency Iron deficiency Disorders of iron metabolism Hypothyroidism (acquired) Unspecified hypothyroidism [facility] Diagnosis Atypical eating disorder- Primary Insulin resistance Other abnormal glucose Obesity, Class III, BMI 40-49.9 (morbid obesity) ([facility]) BMI 40.0-44.9, adult ([facility]) Vitamin D deficiency Vitamin B6 deficiency Iron deficiency Disorders of iron metabolism Hypothyroidism (acquired) Unspecified hypothyroidism [facility] Diagnosis Metabolic syndrome- Primary Dysmetabolic Syndrome [facility] Diagnosis Atypical eating disorder- Primary Insulin resistance Other abnormal glucose Obesity, Class III, BMI 40-49.9 (morbid obesity) ([facility]) BMI 40.0-44.9, adult ([facility]) Vitamin D deficiency Vitamin B6 deficiency Iron deficiency Disorders of iron metabolism Hypothyroidism (acquired) Unspecified hypothyroidism Metabolic syndrome Dysmetabolic Syndrome X [facility] Diagnosis Hypothyroidism (acquired)- Primary Unspecified hypothyroidism [facility] Diagnosis Atypical eating disorder- Primary Insulin resistance Other abnormal glucose Obesity, Class III, BMI 40-49.9 (morbid obesity) ([facility]) BMI 40.0-44.9, adult ([facility]) Vitamin D deficiency Vitamin B6 deficiency Iron deficiency Disorders of iron metabolism Hypothyroidism (acquired) Unspecified hypothyroidism [facility] Diagnosis Atypical eating disorder- Primary Insulin resistance Other abnormal glucose Obesity, Class II, BMI 35-39.9 BMI 38.0-38.9,adult Vitamin D deficiency Vitamin B6 deficiency Iron deficiency Disorders of iron metabolism Hypothyroidism (acquired) Unspecified hypothyroidism [facility] Atypical eating disorder- Primary Insulin resistance Other abnormal glucose Obesity, Class II, BMI 35-39.9 BMI 36.0-36.9,adult Depression, unspecified depression type Vitamin D deficiency Vitamin B6 deficiency Iron deficiency Disorders of iron metabolism Hypothyroidism (acquired) Unspecified hypothyroidism [facility] Atypical eating disorder- Primary Insulin resistance Other abnormal glucose Obesity, Class I, BMI 30-34.9 BMI 34.0-34.9,adult Depression, unspecified depression type Vitamin D deficiency Vitamin B6 deficiency Iron deficiency Disorders of iron metabolism Hypothyroidism (acquired) Unspecified hypothyroidism [facility] Vitamin D deficiency [facility] Diagnosis Hypothyroidism (acquired)- Primary Unspecified hypothyroidism [facility]* Diagnosis Atypical eating disorder- Primary Insulin resistance Other abnormal glucose Overweight (BMI 25.0-29.9) Overweight BMI 29.0-29.9,adult Vitamin D deficiency Vitamin B6 deficiency Iron deficiency Disorders of iron metabolism Depression, unspecified depression type Hypothyroidism (acquired) Unspecified hypothyroidism [facility] Diagnosis Insulin resistance Other abnormal glucose Vitamin D deficiency [facility] Diagnosis Atypical eating disorder- Primary Insulin resistance Other abnormal glucose Overweight (BMI 25.0-29.9) Overweight BMI 28.0-28.9,adult Vitamin D deficiency Vitamin B6 deficiency Iron deficiency Disorders of iron metabolism Hypothyroidism (acquired) Unspecified hypothyroidism Depression, unspecified depression type Fatigue, unspecified type [facility] Diagnosis Atypical eating disorder- Primary Insulin resistance Other abnormal glucose Overweight (BMI 25.0-29.9) Overweight BMI 28.0-28.9,adult Vitamin D deficiency Vitamin B6 deficiency Iron deficiency Disorders of iron metabolism Hypothyroidism (acquired) Unspecified hypothyroidism [facility] Diagnosis Atypical eating disorder- Primary Insulin resistance Other abnormal glucose Overweight (BMI 25.0-29.9) Overweight BMI 27.0-27.9,adult Vitamin D deficiency Vitamin B6 deficiency Iron deficiency Disorders of iron metabolism Hypothyroidism (acquired) Unspecified hypothyroidism Depression, unspecified depression type [facility] Diagnosis Atypical eating disorder- Primary Insulin resistance Other abnormal glucose Overweight (BMI 25.0-29.9) Overweight BMI 27.0-27.9,adult Vitamin D deficiency Vitamin B6 deficiency Iron deficiency Disorders of iron metabolism [facility]* Diagnosis Insulin resistance Other abnormal glucose [facility]* Diagnosis Insulin resistance Other abnormal glucose [facility]* Diagnosis Insulin resistance- Primary Other abnormal glucose [facility] Diagnosis Atypical eating disorder- Primary Insulin resistance Other abnormal glucose Obesity, Class I, BMI 30-34.9 BMI 32.0-32.9,adult Vitamin D deficiency Vitamin B6 deficiency Iron deficiency Disorders of iron metabolism Hypothyroidism (acquired) Unspecified hypothyroidism Constipation, unspecified constipation type [facility]* Diagnosis Well woman exam with routine gynecological exam Routine gynecological examination Herpes simplex Herpes simplex without mention of complication [facility] Diagnosis S/P panniculectomy- Primary S/P panniculectomy Symptomatic abdominal panniculus Localized adiposity Diastasis of rectus abdominis [facility] Diagnosis Abdominal wall seroma, subsequent encounter Postoperative state Other postprocedural status [facility] Diagnosis Abdominal wall seroma, subsequent encounter [facility] Diagnosis Preop testing- Primary Preoperative examination, unspecified Symptomatic abdominal panniculus Localized adiposity Diastasis of rectus abdominis documented in this encounter [facility]* Diagnosis Tenosynovitis of right wrist- Primary Other specified hypothyroidism Rash Rash and other nonspecific skin eruption Anxiety and depression- Primary Other specified hypothyroidism Lymphadenopathy Enlargement of lymph nodes Leg swelling Swelling of limb Other specified hypothyroidism- Primary Leg swelling Swelling of limb Anxiety and depression Other specified hypothyroidism- Primary Anxiety and depression Migraine with aura and without status migrainosus, not intractable Obesity, Class II, BMI 35-39.9 Weight gain- Primary Other symptoms concerning nutrition, metabolism, and development Anxiety and depression Other specified hypothyroidism Obesity, Class II, BMI 35-39.9 Atypical eating disorder Anxiety and depression Other specified hypothyroidism Obesity, Class II, BMI 35-39.9 Atypical eating disorder- Primary Insulin resistance Other abnormal glucose Sleep disturbance Unspecified sleep disturbance Obesity, Class II, BMI 35-39.9 Atypical eating disorder- Primary Sleep disturbance Unspecified sleep disturbance Migraine with aura and without status migrainosus, not intractable Obesity, Class II, BMI 35-39.9 Atypical eating disorder- Primary Anxiety and depression Sleep disturbance Unspecified sleep disturbance Obesity, Class II, BMI 35-39.9 Hair loss- Primary Unspecified alopecia Other specified hypothyroidism Anxiety and depression Need for influenza vaccination Need for prophylactic vaccination and inoculation against influenza Atypical eating disorder- Primary Anxiety and depression Sleep disturbance Unspecified sleep disturbance Other specified hypothyroidism Obesity, Class II, BMI 35-39.9 Atypical eating disorder- Primary Anxiety and depression Sleep disturbance Unspecified sleep disturbance Other specified hypothyroidism Obesity, Class II, BMI 35-39.9 Atypical eating disorder Other specified hypothyroidism Anxiety and depression Obesity, Class II, BMI 35-39.9 Atypical eating disorder- Primary Anxiety and depression Other specified hypothyroidism Obesity, Class II, BMI 35-39.9 Vaginal bleeding- Primary Other specified noninflammatory disorder of vagina Dysuria Other specified hypothyroidism Atypical eating disorder- Primary Anxiety and depression Migraine with aura and without status migrainosus, not intractable Obesity, Class II, BMI 35-39.9 Atypical eating disorder- Primary Other specified hypothyroidism Migraine with aura and without status migrainosus, not intractable Obesity, Class II, BMI 35-39.9 Annual physical exam- Primary Routine general medical examination at a health care facility Other specified hypothyroidism Anxiety and depression Cough- Primary Anxiety and depression Internal hemorrhoids- Primary Internal hemorrhoids without mention of complication Rectal bleeding Hemorrhage of rectum and anus Atypical eating disorder- Primary Insulin resistance Other abnormal glucose Obesity, Class I, BMI 30-34.9 BMI 32.0-32.9,adult Vitamin D deficiency Vitamin B6 deficiency Iron deficiency Disorders of iron metabolism Depression, unspecified depression type [facility] Diagnosis Tenosynovitis of right wrist- Primary Other specified hypothyroidism Rash Rash and other nonspecific skin eruption Anxiety and depression- Primary Other specified hypothyroidism Lymphadenopathy Enlargement of lymph nodes Leg swelling Swelling of limb Other specified hypothyroidism- Primary Leg swelling Swelling of limb Anxiety and depression Other specified hypothyroidism- Primary Anxiety and depression Migraine with aura and without status migrainosus, not intractable Obesity, Class II, BMI 35-39.9 Weight gain- Primary Other symptoms concerning nutrition, metabolism, and development Anxiety and depression Other specified hypothyroidism Obesity, Class II, BMI 35-39.9 Atypical eating disorder Anxiety and depression Other specified hypothyroidism Obesity, Class II, BMI 35-39.9 Atypical eating disorder- Primary Insulin resistance Other abnormal glucose Sleep disturbance Unspecified sleep disturbance Obesity, Class II, BMI 35-39.9 Atypical eating disorder- Primary Sleep disturbance Unspecified sleep disturbance Migraine with aura and without status migrainosus, not intractable Obesity, Class II, BMI 35-39.9 Atypical eating disorder- Primary Anxiety and depression Sleep disturbance Unspecified sleep disturbance Obesity, Class II, BMI 35-39.9 Hair loss- Primary Unspecified alopecia Other specified hypothyroidism Anxiety and depression Need for influenza vaccination Need for prophylactic vaccination and inoculation against influenza Atypical eating disorder- Primary Anxiety and depression Sleep disturbance Unspecified sleep disturbance Other specified hypothyroidism Obesity, Class II, BMI 35-39.9 Atypical eating disorder- Primary Anxiety and depression Sleep disturbance Unspecified sleep disturbance Other specified hypothyroidism Obesity, Class II, BMI 35-39.9 Atypical eating disorder Other specified hypothyroidism Anxiety and depression Obesity, Class II, BMI 35-39.9 Atypical eating disorder- Primary Anxiety and depression Other specified hypothyroidism Obesity, Class II, BMI 35-39.9 Vaginal bleeding- Primary Other specified noninflammatory disorder of vagina Dysuria Other specified hypothyroidism Atypical eating disorder- Primary Anxiety and depression Migraine with aura and without status migrainosus, not intractable Obesity, Class II, BMI 35-39.9 Atypical eating disorder- Primary Other specified hypothyroidism Migraine with aura and without status migrainosus, not intractable Obesity, Class II, BMI 35-39.9 Annual physical exam- Primary Routine general medical examination at a health care facility Other specified hypothyroidism Anxiety and depression Cough- Primary Anxiety and depression Internal hemorrhoids- Primary Internal hemorrhoids without mention of complication Rectal bleeding Hemorrhage of rectum and anus Atypical eating disorder- Primary Insulin resistance Other abnormal glucose Obesity, Class II, BMI 35-39.9 BMI 35.0-35.9,adult Vitamin D deficiency Vitamin B6 deficiency Iron deficiency Disorders of iron metabolism Depression, unspecified depression type [facility] Diagnosis Tenosynovitis of right wrist- Primary Other specified hypothyroidism Rash Rash and other nonspecific skin eruption Anxiety and depression- Primary Other specified hypothyroidism Lymphadenopathy Enlargement of lymph nodes Leg swelling Swelling of limb Other specified hypothyroidism- Primary Leg swelling Swelling of limb Anxiety and depression Other specified hypothyroidism- Primary Anxiety and depression Migraine with aura and without status migrainosus, not intractable Obesity, Class II, BMI 35-39.9 Weight gain- Primary Other symptoms concerning nutrition, metabolism, and development Anxiety and depression Other specified hypothyroidism Obesity, Class II, BMI 35-39.9 Atypical eating disorder Anxiety and depression Other specified hypothyroidism Obesity, Class II, BMI 35-39.9 Atypical eating disorder- Primary Insulin resistance Other abnormal glucose Sleep disturbance Unspecified sleep disturbance Obesity, Class II, BMI 35-39.9 Atypical eating disorder- Primary Sleep disturbance Unspecified sleep disturbance Migraine with aura and without status migrainosus, not intractable Obesity, Class II, BMI 35-39.9 Atypical eating disorder- Primary Anxiety and depression Sleep disturbance Unspecified sleep disturbance Obesity, Class II, BMI 35-39.9 Hair loss- Primary Unspecified alopecia Other specified hypothyroidism Anxiety and depression Need for influenza vaccination Need for prophylactic vaccination and inoculation against influenza Atypical eating disorder- Primary Anxiety and depression Sleep disturbance Unspecified sleep disturbance Other specified hypothyroidism Obesity, Class II, BMI 35-39.9 Atypical eating disorder- Primary Anxiety and depression Sleep disturbance Unspecified sleep disturbance Other specified hypothyroidism Obesity, Class II, BMI 35-39.9 Atypical eating disorder Other specified hypothyroidism Anxiety and depression Obesity, Class II, BMI 35-39.9 Atypical eating disorder- Primary Anxiety and depression Other specified hypothyroidism Obesity, Class II, BMI 35-39.9 Vaginal bleeding- Primary Other specified noninflammatory disorder of vagina Dysuria Other specified hypothyroidism Atypical eating disorder- Primary Anxiety and depression Migraine with aura and without status migrainosus, not intractable Obesity, Class II, BMI 35-39.9 Atypical eating disorder- Primary Other specified hypothyroidism Migraine with aura and without status migrainosus, not intractable Obesity, Class II, BMI 35-39.9 Annual physical exam- Primary Routine general medical examination at a health care facility Other specified hypothyroidism Anxiety and depression Cough- Primary Anxiety and depression Internal hemorrhoids- Primary Internal hemorrhoids without mention of complication Rectal bleeding Hemorrhage of rectum and anus Atypical eating disorder- Primary Insulin resistance Other abnormal glucose Obesity, Class I, BMI 30-34.9 BMI 33.0-33.9,adult Vitamin D deficiency Vitamin B6 deficiency Iron deficiency Disorders of iron metabolism Depression, unspecified depression type [facility] Diagnosis Tenosynovitis of right wrist- Primary Other specified hypothyroidism Rash Rash and other nonspecific skin eruption Anxiety and depression- Primary Other specified hypothyroidism Lymphadenopathy Enlargement of lymph nodes Leg swelling Swelling of limb Other specified hypothyroidism- Primary Leg swelling Swelling of limb Anxiety and depression Other specified hypothyroidism- Primary Anxiety and depression Migraine with aura and without status migrainosus, not intractable Obesity, Class II, BMI 35-39.9 Weight gain- Primary Other symptoms concerning nutrition, metabolism, and development Anxiety and depression Other specified hypothyroidism Obesity, Class II, BMI 35-39.9 Atypical eating disorder Anxiety and depression Other specified hypothyroidism Obesity, Class II, BMI 35-39.9 Atypical eating disorder- Primary Insulin resistance Other abnormal glucose Sleep disturbance Unspecified sleep disturbance Obesity, Class II, BMI 35-39.9 Atypical eating disorder- Primary Sleep disturbance Unspecified sleep disturbance Migraine with aura and without status migrainosus, not intractable Obesity, Class II, BMI 35-39.9 Atypical eating disorder- Primary Anxiety and depression Sleep disturbance Unspecified sleep disturbance Obesity, Class II, BMI 35-39.9 Hair loss- Primary Unspecified alopecia Other specified hypothyroidism Anxiety and depression Need for influenza vaccination Need for prophylactic vaccination and inoculation against influenza Atypical eating disorder- Primary Anxiety and depression Sleep disturbance Unspecified sleep disturbance Other specified hypothyroidism Obesity, Class II, BMI 35-39.9 Atypical eating disorder- Primary Anxiety and depression Sleep disturbance Unspecified sleep disturbance Other specified hypothyroidism Obesity, Class II, BMI 35-39.9 Atypical eating disorder Other specified hypothyroidism Anxiety and depression Obesity, Class II, BMI 35-39.9 Atypical eating disorder- Primary Anxiety and depression Other specified hypothyroidism Obesity, Class II, BMI 35-39.9 Vaginal bleeding- Primary Other specified noninflammatory disorder of vagina Dysuria Other specified hypothyroidism Atypical eating disorder- Primary Anxiety and depression Migraine with aura and without status migrainosus, not intractable Obesity, Class II, BMI 35-39.9 Atypical eating disorder- Primary Other specified hypothyroidism Migraine with aura and without status migrainosus, not intractable Obesity, Class II, BMI 35-39.9 Annual physical exam- Primary Routine general medical examination at a health care facility Other specified hypothyroidism Anxiety and depression Cough- Primary Anxiety and depression Internal hemorrhoids- Primary Internal hemorrhoids without mention of complication Rectal bleeding Hemorrhage of rectum and anus Class 2 obesity- Primary BMI 35.0-35.9,adult Psychological factors affecting medical condition Psychic factors associated with diseases classified elsewhere [facility] Diagnosis Tenosynovitis of right wrist- Primary Other specified hypothyroidism Rash Rash and other nonspecific skin eruption Anxiety and depression- Primary Other specified hypothyroidism Lymphadenopathy Enlargement of lymph nodes Leg swelling Swelling of limb Other specified hypothyroidism- Primary Leg swelling Swelling of limb Anxiety and depression Other specified hypothyroidism- Primary Anxiety and depression Migraine with aura and without status migrainosus, not intractable Obesity, Class II, BMI 35-39.9 Weight gain- Primary Other symptoms concerning nutrition, metabolism, and development Anxiety and depression Other specified hypothyroidism Obesity, Class II, BMI 35-39.9 Atypical eating disorder Anxiety and depression Other specified hypothyroidism Obesity, Class II, BMI 35-39.9 Atypical eating disorder- Primary Insulin resistance Other abnormal glucose Sleep disturbance Unspecified sleep disturbance Obesity, Class II, BMI 35-39.9 Atypical eating disorder- Primary Sleep disturbance Unspecified sleep disturbance Migraine with aura and without status migrainosus, not intractable Obesity, Class II, BMI 35-39.9 Atypical eating disorder- Primary Anxiety and depression Sleep disturbance Unspecified sleep disturbance Obesity, Class II, BMI 35-39.9 Hair loss- Primary Unspecified alopecia Other specified hypothyroidism Anxiety and depression Need for influenza vaccination Need for prophylactic vaccination and inoculation against influenza Atypical eating disorder- Primary Anxiety and depression Sleep disturbance Unspecified sleep disturbance Other specified hypothyroidism Obesity, Class II, BMI 35-39.9 Atypical eating disorder- Primary Anxiety and depression Sleep disturbance Unspecified sleep disturbance Other specified hypothyroidism Obesity, Class II, BMI 35-39.9 Atypical eating disorder Other specified hypothyroidism Anxiety and depression Obesity, Class II, BMI 35-39.9 Atypical eating disorder- Primary Anxiety and depression Other specified hypothyroidism Obesity, Class II, BMI 35-39.9 Vaginal bleeding- Primary Other specified noninflammatory disorder of vagina Dysuria Other specified hypothyroidism Atypical eating disorder- Primary Anxiety and depression Migraine with aura and without status migrainosus, not intractable Obesity, Class II, BMI 35-39.9 Atypical eating disorder- Primary Other specified hypothyroidism Migraine with aura and without status migrainosus, not intractable Obesity, Class II, BMI 35-39.9 Annual physical exam- Primary Routine general medical examination at a health care facility Other specified hypothyroidism Anxiety and depression Cough- Primary Anxiety and depression Internal hemorrhoids- Primary Internal hemorrhoids without mention of complication Rectal bleeding Hemorrhage of rectum and anus Atypical eating disorder- Primary Insulin resistance Other abnormal glucose Obesity, Class I, BMI 30-34.9 BMI 32.0-32.9,adult Vitamin D deficiency Vitamin B6 deficiency Iron deficiency Disorders of iron metabolism Depression, unspecified depression type Hypothyroidism (acquired) Unspecified hypothyroidism [facility] Diagnosis Tenosynovitis of right wrist- Primary Other specified hypothyroidism Rash Rash and other nonspecific skin eruption Anxiety and depression- Primary Other specified hypothyroidism Lymphadenopathy Enlargement of lymph nodes Leg swelling Swelling of limb Other specified hypothyroidism- Primary Leg swelling Swelling of limb Anxiety and depression Other specified hypothyroidism- Primary Anxiety and depression Migraine with aura and without status migrainosus, not intractable Obesity, Class II, BMI 35-39.9 Weight gain- Primary Other symptoms concerning nutrition, metabolism, and development Anxiety and depression Other specified hypothyroidism Obesity, Class II, BMI 35-39.9 Atypical eating disorder Anxiety and depression Other specified hypothyroidism Obesity, Class II, BMI 35-39.9 Atypical eating disorder- Primary Insulin resistance Other abnormal glucose Sleep disturbance Unspecified sleep disturbance Obesity, Class II, BMI 35-39.9 Atypical eating disorder- Primary Sleep disturbance Unspecified sleep disturbance Migraine with aura and without status migrainosus, not intractable Obesity, Class II, BMI 35-39.9 Atypical eating disorder- Primary Anxiety and depression Sleep disturbance Unspecified sleep disturbance Obesity, Class II, BMI 35-39.9 Hair loss- Primary Unspecified alopecia Other specified hypothyroidism Anxiety and depression Need for influenza vaccination Need for prophylactic vaccination and inoculation against influenza Atypical eating disorder- Primary Anxiety and depression Sleep disturbance Unspecified sleep disturbance Other specified hypothyroidism Obesity, Class II, BMI 35-39.9 Atypical eating disorder- Primary Anxiety and depression Sleep disturbance Unspecified sleep disturbance Other specified hypothyroidism Obesity, Class II, BMI 35-39.9 Atypical eating disorder Other specified hypothyroidism Anxiety and depression Obesity, Class II, BMI 35-39.9 Atypical eating disorder- Primary Anxiety and depression Other specified hypothyroidism Obesity, Class II, BMI 35-39.9 Vaginal bleeding- Primary Other specified noninflammatory disorder of vagina Dysuria Other specified hypothyroidism Atypical eating disorder- Primary Anxiety and depression Migraine with aura and without status migrainosus, not intractable Obesity, Class II, BMI 35-39.9 Atypical eating disorder- Primary Other specified hypothyroidism Migraine with aura and without status migrainosus, not intractable Obesity, Class II, BMI 35-39.9 Annual physical exam- Primary Routine general medical examination at a health care facility Other specified hypothyroidism Anxiety and depression Cough- Primary Anxiety and depression Internal hemorrhoids- Primary Internal hemorrhoids without mention of complication Rectal bleeding Hemorrhage of rectum and anus Class 2 obesity- Primary BMI 32.0-32.9,adult Psychological factors affecting medical condition Psychic factors associated with diseases classified [facility] Tenosynovitis of right wrist- Primary Other specified hypothyroidism Rash Rash and other nonspecific skin eruption Anxiety and depression- Primary Other specified hypothyroidism Lymphadenopathy Enlargement of lymph nodes Leg swelling Swelling of limb Other specified hypothyroidism- Primary Leg swelling Swelling of limb Anxiety and depression Other specified hypothyroidism- Primary Anxiety and depression Migraine with aura and without status migrainosus, not intractable Obesity, Class II, BMI 35-39.9 Weight gain- Primary Other symptoms concerning nutrition, metabolism, and development Anxiety and depression Other specified hypothyroidism Obesity, Class II, BMI 35-39.9 Atypical eating disorder Anxiety and depression Other specified hypothyroidism Obesity, Class II, BMI 35-39.9 Atypical eating disorder- Primary Insulin resistance Other abnormal glucose Sleep disturbance Unspecified sleep disturbance Obesity, Class II, BMI 35-39.9 Atypical eating disorder- Primary Sleep disturbance Unspecified sleep disturbance Migraine with aura and without status migrainosus, not intractable Obesity, Class II, BMI 35-39.9 Atypical eating disorder- Primary Anxiety and depression Sleep disturbance Unspecified sleep disturbance Obesity, Class II, BMI 35-39.9 Hair loss- Primary Unspecified alopecia Other specified hypothyroidism Anxiety and depression Need for influenza vaccination Need for prophylactic vaccination and inoculation against influenza Atypical eating disorder- Primary Anxiety and depression Sleep disturbance Unspecified sleep disturbance Other specified hypothyroidism Obesity, Class II, BMI 35-39.9 Atypical eating disorder- Primary Anxiety and depression Sleep disturbance Unspecified sleep disturbance Other specified hypothyroidism Obesity, Class II, BMI 35-39.9 Atypical eating disorder Other specified hypothyroidism Anxiety and depression Obesity, Class II, BMI 35-39.9 Atypical eating disorder- Primary Anxiety and depression Other specified hypothyroidism Obesity, Class II, BMI 35-39.9 Vaginal bleeding- Primary Other specified noninflammatory disorder of vagina Dysuria Other specified hypothyroidism Atypical eating disorder- Primary Anxiety and depression Migraine with aura and without status migrainosus, not intractable Obesity, Class II, BMI 35-39.9 Atypical eating disorder- Primary Other specified hypothyroidism Migraine with aura and without status migrainosus, not intractable Obesity, Class II, BMI 35-39.9 Annual physical exam- Primary Routine general medical examination at a health care facility Other specified hypothyroidism Anxiety and depression Cough- Primary Anxiety and depression Internal hemorrhoids- Primary Internal hemorrhoids without mention of complication Rectal bleeding Hemorrhage of rectum and anus Class 2 obesity- Primary BMI 32.0-32.9,adult Psychological factors affecting medical condition Psychic factors associated with diseases classified elsewhere [facility] Diagnosis Tenosynovitis of right wrist- Primary Other specified hypothyroidism Rash Rash and other nonspecific skin eruption Anxiety and depression- Primary Other specified hypothyroidism Lymphadenopathy Enlargement of lymph nodes Leg swelling Swelling of limb Other specified hypothyroidism- Primary Leg swelling Swelling of limb Anxiety and depression Other specified hypothyroidism- Primary Anxiety and depression Migraine with aura and without status migrainosus, not intractable Obesity, Class II, BMI 35-39.9 Weight gain- Primary Other symptoms concerning nutrition, metabolism, and development Anxiety and depression Other specified hypothyroidism Obesity, Class II, BMI 35-39.9 Atypical eating disorder Anxiety and depression Other specified hypothyroidism Obesity, Class II, BMI 35-39.9 Atypical eating disorder- Primary Insulin resistance Other abnormal glucose Sleep disturbance Unspecified sleep disturbance Obesity, Class II, BMI 35-39.9 Atypical eating disorder- Primary Sleep disturbance Unspecified sleep disturbance Migraine with aura and without status migrainosus, not intractable Obesity, Class II, BMI 35-39.9 Atypical eating disorder- Primary Anxiety and depression Sleep disturbance Unspecified sleep disturbance Obesity, Class II, BMI 35-39.9 Hair loss- Primary Unspecified alopecia Other specified hypothyroidism Anxiety and depression Need for influenza vaccination Need for prophylactic vaccination and inoculation against influenza Atypical eating disorder- Primary Anxiety and depression Sleep disturbance Unspecified sleep disturbance Other specified hypothyroidism Obesity, Class II, BMI 35-39.9 Atypical eating disorder- Primary Anxiety and depression Sleep disturbance Unspecified sleep disturbance Other specified hypothyroidism Obesity, Class II, BMI 35-39.9 Atypical eating disorder Other specified hypothyroidism Anxiety and depression Obesity, Class II, BMI 35-39.9 Atypical eating disorder- Primary Anxiety and depression Other specified hypothyroidism Obesity, Class II, BMI 35-39.9 Vaginal bleeding- Primary Other specified noninflammatory disorder of vagina Dysuria Other specified hypothyroidism Atypical eating disorder- Primary Anxiety and depression Migraine with aura and without status migrainosus, not intractable Obesity, Class II, BMI 35-39.9 Atypical eating disorder- Primary Other specified hypothyroidism Migraine with aura and without status migrainosus, not intractable Obesity, Class II, BMI 35-39.9 Annual physical exam- Primary Routine general medical examination at a health care facility Other specified hypothyroidism Anxiety and depression Cough- Primary Anxiety and depression Internal hemorrhoids- Primary Internal hemorrhoids without mention of complication Rectal bleeding Hemorrhage of rectum and anus Atypical eating disorder- Primary Insulin resistance Other abnormal glucose Obesity, Class I, BMI 30-34.9 BMI 32.0-32.9,adult Vitamin D deficiency Vitamin B6 deficiency Iron deficiency Disorders of iron metabolism Depression, unspecified depression type [facility] Diagnosis Tenosynovitis of right wrist- Primary Other specified hypothyroidism Rash Rash and other nonspecific skin eruption Anxiety and depression- Primary Other specified hypothyroidism Lymphadenopathy Enlargement of lymph nodes Leg swelling Swelling of limb Other specified hypothyroidism- Primary Leg swelling Swelling of limb Anxiety and depression Other specified hypothyroidism- Primary Anxiety and depression Migraine with aura and without status migrainosus, not intractable Obesity, Class II, BMI 35-39.9 Weight gain- Primary Other symptoms concerning nutrition, metabolism, and development Anxiety and depression Other specified hypothyroidism Obesity, Class II, BMI 35-39.9 Atypical eating disorder Anxiety and depression Other specified hypothyroidism Obesity, Class II, BMI 35-39.9 Atypical eating disorder- Primary Insulin resistance Other abnormal glucose Sleep disturbance Unspecified sleep disturbance Obesity, Class II, BMI 35-39.9 Atypical eating disorder- Primary Sleep disturbance Unspecified sleep disturbance Migraine with aura and without status migrainosus, not intractable Obesity, Class II, BMI 35-39.9 Atypical eating disorder- Primary Anxiety and depression Sleep disturbance Unspecified sleep disturbance Obesity, Class II, BMI 35-39.9 Hair loss- Primary Unspecified alopecia Other specified hypothyroidism Anxiety and depression Need for influenza vaccination Need for prophylactic vaccination and inoculation against influenza Atypical eating disorder- Primary Anxiety and depression Sleep disturbance Unspecified sleep disturbance Other specified hypothyroidism Obesity, Class II, BMI 35-39.9 Atypical eating disorder- Primary Anxiety and depression Sleep disturbance Unspecified sleep disturbance Other specified hypothyroidism Obesity, Class II, BMI 35-39.9 Atypical eating disorder Other specified hypothyroidism Anxiety and depression Obesity, Class II, BMI 35-39.9 Atypical eating disorder- Primary Anxiety and depression Other specified hypothyroidism Obesity, Class II, BMI 35-39.9 Vaginal bleeding- Primary Other specified noninflammatory disorder of vagina Dysuria Other specified hypothyroidism Atypical eating disorder- Primary Anxiety and depression Migraine with aura and without status migrainosus, not intractable Obesity, Class II, BMI 35-39.9 Atypical eating disorder- Primary Other specified hypothyroidism Migraine with aura and without status migrainosus, not intractable Obesity, Class II, BMI 35-39.9 Annual physical exam- Primary Routine general medical examination at a health care facility Other specified hypothyroidism Anxiety and depression Cough- Primary Anxiety and depression Internal hemorrhoids- Primary Internal hemorrhoids without mention of complication Rectal bleeding Hemorrhage of rectum and anus Insulin resistance Other abnormal glucose [facility] Diagnosis Tenosynovitis of right wrist- Primary Other specified hypothyroidism Rash Rash and other nonspecific skin eruption Anxiety and depression- Primary Other specified hypothyroidism Lymphadenopathy Enlargement of lymph nodes Leg swelling Swelling of limb Other specified hypothyroidism- Primary Leg swelling Swelling of limb Anxiety and depression Other specified hypothyroidism- Primary Anxiety and depression Migraine with aura and without status migrainosus, not intractable Obesity, Class II, BMI 35-39.9 Weight gain- Primary Other symptoms concerning nutrition, metabolism, and development Anxiety and depression Other specified hypothyroidism Obesity, Class II, BMI 35-39.9 Atypical eating disorder Anxiety and depression Other specified hypothyroidism Obesity, Class II, BMI 35-39.9 Atypical eating disorder- Primary Insulin resistance Other abnormal glucose Sleep disturbance Unspecified sleep disturbance Obesity, Class II, BMI 35-39.9 Atypical eating disorder- Primary Sleep disturbance Unspecified sleep disturbance Migraine with aura and without status migrainosus, not intractable Obesity, Class II, BMI 35-39.9 Atypical eating disorder- Primary Anxiety and depression Sleep disturbance Unspecified sleep disturbance Obesity, Class II, BMI 35-39.9 Hair loss- Primary Unspecified alopecia Other specified hypothyroidism Anxiety and depression Need for influenza vaccination Need for prophylactic vaccination and inoculation against influenza Atypical eating disorder- Primary Anxiety and depression Sleep disturbance Unspecified sleep disturbance Other specified hypothyroidism Obesity, Class II, BMI 35-39.9 Atypical eating disorder- Primary Anxiety and depression Sleep disturbance Unspecified sleep disturbance Other specified hypothyroidism Obesity, Class II, BMI 35-39.9 Atypical eating disorder Other specified hypothyroidism Anxiety and depression Obesity, Class II, BMI 35-39.9 Atypical eating disorder- Primary Anxiety and depression Other specified hypothyroidism Obesity, Class II, BMI 35-39.9 Vaginal bleeding- Primary Other specified noninflammatory disorder of vagina Dysuria Other specified hypothyroidism Atypical eating disorder- Primary Anxiety and depression Migraine with aura and without status migrainosus, not intractable Obesity, Class II, BMI 35-39.9 Atypical eating disorder- Primary Other specified hypothyroidism Migraine with aura and without status migrainosus, not intractable Obesity, Class II, BMI 35-39.9 Annual physical exam- Primary Routine general medical examination at a health care facility Other specified hypothyroidism Anxiety and depression Cough- Primary Anxiety and depression Internal hemorrhoids- Primary Internal hemorrhoids without mention of complication Rectal bleeding Hemorrhage of rectum and anus Atypical eating disorder- Primary Insulin resistance Other abnormal glucose Obesity, Class I, BMI 30-34.9 BMI 32.0-32.9,adult Vitamin D deficiency Vitamin B6 deficiency Iron deficiency Disorders of iron metabolism Depression, unspecified depression type [facility] this [facility]* Diagnosis Tenosynovitis of right wrist- Primary Other specified hypothyroidism Rash Rash and other nonspecific skin eruption Anxiety and depression- Primary Other specified hypothyroidism Lymphadenopathy Enlargement of lymph nodes Leg swelling Swelling of limb Other specified hypothyroidism- Primary Leg swelling Swelling of limb Anxiety and depression Other specified hypothyroidism- Primary Anxiety and depression Migraine with aura and without status migrainosus, not intractable Obesity, Class II, BMI 35-39.9 Weight gain- Primary Other symptoms concerning nutrition, metabolism, and development Anxiety and depression Other specified hypothyroidism Obesity, Class II, BMI 35-39.9 Atypical eating disorder Anxiety and depression Other specified hypothyroidism Obesity, Class II, BMI 35-39.9 Atypical eating disorder- Primary Insulin resistance Other abnormal glucose Sleep disturbance Unspecified sleep disturbance Obesity, Class II, BMI 35-39.9 Atypical eating disorder- Primary Sleep disturbance Unspecified sleep disturbance Migraine with aura and without status migrainosus, not intractable Obesity, Class II, BMI 35-39.9 Atypical eating disorder- Primary Anxiety and depression Sleep disturbance Unspecified sleep disturbance Obesity, Class II, BMI 35-39.9 Hair loss- Primary Unspecified alopecia Other specified hypothyroidism Anxiety and depression Need for influenza vaccination Need for prophylactic vaccination and inoculation against influenza Atypical eating disorder- Primary Anxiety and depression Sleep disturbance Unspecified sleep disturbance Other specified hypothyroidism Obesity, Class II, BMI 35-39.9 Atypical eating disorder- Primary Anxiety and depression Sleep disturbance Unspecified sleep disturbance Other specified hypothyroidism Obesity, Class II, BMI 35-39.9 Atypical eating disorder Other specified hypothyroidism Anxiety and depression Obesity, Class II, BMI 35-39.9 Atypical eating disorder- Primary Anxiety and depression Other specified hypothyroidism Obesity, Class II, BMI 35-39.9 Vaginal bleeding- Primary Other specified noninflammatory disorder of vagina Dysuria Other specified hypothyroidism Atypical eating disorder- Primary Anxiety and depression Migraine with aura and without status migrainosus, not intractable Obesity, Class II, BMI 35-39.9 Atypical eating disorder- Primary Other specified hypothyroidism Migraine with aura and without status migrainosus, not intractable Obesity, Class II, BMI 35-39.9 Annual physical exam- Primary Routine general medical examination at a health care facility Other specified hypothyroidism Anxiety and depression Cough- Primary Anxiety and depression Internal hemorrhoids- Primary Internal hemorrhoids without mention of complication Rectal bleeding Hemorrhage of rectum and anus Class 2 obesity- Primary BMI 32.0-32.9,adult Psychological factors affecting medical condition Psychic factors associated with diseases classified elsewhere [facility] Diagnosis Tenosynovitis of right wrist- Primary Other specified hypothyroidism Rash Rash and other nonspecific skin eruption Anxiety and depression- Primary Other specified hypothyroidism Lymphadenopathy Enlargement of lymph nodes Leg swelling Swelling of limb Other specified hypothyroidism- Primary Leg swelling Swelling of limb Anxiety and depression Other specified hypothyroidism- Primary Anxiety and depression Migraine with aura and without status migrainosus, not intractable Obesity, Class II, BMI 35-39.9 Weight gain- Primary Other symptoms concerning nutrition, metabolism, and development Anxiety and depression Other specified hypothyroidism Obesity, Class II, BMI 35-39.9 Atypical eating disorder Anxiety and depression Other specified hypothyroidism Obesity, Class II, BMI 35-39.9 Atypical eating disorder- Primary Insulin resistance Other abnormal glucose Sleep disturbance Unspecified sleep disturbance Obesity, Class II, BMI 35-39.9 Atypical eating disorder- Primary Sleep disturbance Unspecified sleep disturbance Migraine with aura and without status migrainosus, not intractable Obesity, Class II, BMI 35-39.9 Atypical eating disorder- Primary Anxiety and depression Sleep disturbance Unspecified sleep disturbance Obesity, Class II, BMI 35-39.9 Hair loss- Primary Unspecified alopecia Other specified hypothyroidism Anxiety and depression Need for influenza vaccination Need for prophylactic vaccination and inoculation against influenza Atypical eating disorder- Primary Anxiety and depression Sleep disturbance Unspecified sleep disturbance Other specified hypothyroidism Obesity, Class II, BMI 35-39.9 Atypical eating disorder- Primary Anxiety and depression Sleep disturbance Unspecified sleep disturbance Other specified hypothyroidism Obesity, Class II, BMI 35-39.9 Atypical eating disorder Other specified hypothyroidism Anxiety and depression Obesity, Class II, BMI 35-39.9 Atypical eating disorder- Primary Anxiety and depression Other specified hypothyroidism Obesity, Class II, BMI 35-39.9 Vaginal bleeding- Primary Other specified noninflammatory disorder of vagina Dysuria Other specified hypothyroidism Atypical eating disorder- Primary Anxiety and depression Migraine with aura and without status migrainosus, not intractable Obesity, Class II, BMI 35-39.9 Atypical eating disorder- Primary Other specified hypothyroidism Migraine with aura and without status migrainosus, not intractable Obesity, Class II, BMI 35-39.9 Annual physical exam- Primary Routine general medical examination at a health care facility Other specified hypothyroidism Anxiety and depression Cough- Primary Anxiety and depression Internal hemorrhoids- Primary Internal hemorrhoids without mention of complication Rectal bleeding Hemorrhage of rectum and anus Atypical eating disorder- Primary Insulin resistance Other abnormal glucose Obesity, Class I, BMI 30-34.9 BMI 33.0-33.9,adult Vitamin D deficiency Vitamin B6 deficiency Iron deficiency Disorders of iron metabolism Depression, unspecified depression type documented in this encounter [facility] Discharge instructions* Attachments The following attachments cannot be sent through Care Everywhere. * [facility] ([place] Family History No Family History [...] FoundNo Family History Records Found Advance Directives TypeDate RecordedPatient RepresentativeExplanationAdvance Directives and Living Will11/10/2018 8:02 AMTypeDate RecordedPatient RepresentativeExplanationAdvance Directives and Living Will08/23/2019 12:08 PMTypeDate RecordedPatient RepresentativeExplanationAdvance Directives and Living Will08/23/2019 12:08 PMType Date RecordedPatient RepresentativeExplanationAdvance Directives and Living Will 08/31/2019 1:21 PMTypeDate RecordedPatient RepresentativeExplanationAdvance Directives and Living Will08/31/2019 1:21 PMTypeDate RecordedPatient RepresentativeExplanationAdvance Directives and Living Will03/18/2021 10:09 PMType Date RecordedPatient RepresentativeExplanationAdvance Directives and Living Will 03/18/2021 10:09 PMTypeDate RecordedPatient RepresentativeExplanationAdvance Directives and Living Will04/25/2021 9:49 AMTypeDate RecordedPatient RepresentativeExplanationAdvance Directives and Living Will05/05/2021 9:51 AMType Date RecordedPatient RepresentativeExplanationAdvance Directives and Living Will 07/03/2021 10:31 AMTypeDate RecordedPatient RepresentativeExplanationAdvance Directives and Living Will07/03/2021 10:31 AM History of Present Illness * Kae Vargas RN - 08/13/2019 9:32 AM EST Public Health RNJeffrey phoned in . Pt. Is engaged in ongoing weekly visits for weight checks of infant Allen Howard dob [birth year]. Engaged and receptive to home education/child weight monitoring. documented in this encounter* Rochelle Martinez LPC - 08/24/2019 10:49 AM EST [facility] met with Aurora for initial face to [...] flexibility. She also admits to wanting to progress worker so she can see what her [...] 37.5 tablets to see if helpful. Today, [facility] educated patient on anxiety and techniques to [...] resources for apps to use such as [employer] and [employer] timer. Asked patient to do at least 5 minutes a day to reduce anxiety. Since the relationships is clearly causing most of her distress, we talked about healthy relationships and boundaries. [facility] engaged in self-esteem building with patient as well as encouraging that she might think about taking some time away from the relationship if she wants to work on her mental health. She agrees and says that everyone tells her to leave, but it is hard. [facility] agreed to support her whatever decision she makes, but that [facility] will be continuing to assess for her mental health and her safety. She agreed to f/u with [facility] in one week, phone call, and will [...] did refer her at this time to auto heater mechanic. Being that most of her anxiety is situational she would benefit from discussing coping mechanisms and improving her thoughts about herself. Relevant Medications venlafaxine (EFFEXOR) 37.5 MG tablet Other Relevant Orders Ambulatory Ref to [place] [facility] Proration Clerk Return in about 6 weeks (around 10/05/2019) for Mood, thyroid and leg swelling f/u. Aurora Daniel Mendez is a 34 y.o. female who [...] 25 mcg by mouth daily . 3 prenat.vits,ronny,[id number] Tab Take by mouth . aspirin 81 [...] she has been doing this past week .[facility] asked for a return call back and provided direct line documented in this encounter* Rochelle Martinez LPC - 09/11/2019 4:02 PM EST [facility] called to check up on [place]. P left message for call back. Second attempt [...] (August). Number of minutes 46 See separate [facility] note for treatment specifics. Please review and [...] 09/06/2019 2:34 PM EST Patient discussed in [facility] conference. 34 year old with a new [...] Martinez LPC - 12/05/2019 9:33 AM EDT [facility] called to check up on [place], mailbox full and cannot accept any messages. First attempt documented in this encounter* Rochelle Martinez LPC - 10/26/2019 10:23 AM EDT [facility] called to let patient know Tuesday at 8am we will have our normal session via phone due instead of in-person. Patient agreeable and phone number confirmed. documented in this encounter* Rochelle Martinez LPC - 10/29/2019 8:22 AM EDT Phone call session with patient due to Behavioral Health Screenings: HILARY-7 08/24/2019 10/29/2019 HILARY-7 Score 19 18 PHQ-9 [...] is at the end of her rope. [facility] encouraged patient that she does deserve a [...] (EFT) and sheet will be sent through [employer]. Advised patient to start mag and info will be sent through [employer]. We talked about boundary setting with partner [...] by mouth daily . 30 tablet 3 prenat.vits,ronny,ljh-mwzy-pmdfl Tab Take by mouth . aspirin 81 [...] in this encounter* Rochelle Martinez LPC - 01/29/2020 2:49 PM EDT Patient no longer interested in engaging in the [facility] program. Will unenroll from registry. Happy to help in the future if patient re-engages. documented in this encounter* Christa Sarmiento CNP - 03/07/2020 4:15 PM EDT Chief Complaint Patient presents with Weight Gain [place]: Pt who is a pleasant 34-year-old female [...] file Gets together: Not on file Attends oriental orthodox service: Not on file Active member of [...] tablet Atypical eating disorder - Primary Diet: 8185-1640 calories per day with a goal of 120 g/day protein and 60 g/day carbs Exercise Prescription: 3 days per week for 30 minutes- Goal 150 minutes per week Counselor/Therapist: Complete your nutrition evaluation and education at [facility] to eating patterns and [...] for influenza vaccination Relevant Medications flu vacc [id number] 6mos up,PF, sdv (FLUZONE QUAD) injection Other Relevant Orders Influenza IIV4 3yo or >,Fluzone Quad (Completed) Return in about 6 months (around 10/21/2020) for Annual physical w/ PAP. Aurora Daniel Mendez is a 34 y.o. female who [...] daily . 30 tablet 11 flu vacc [id number] 6mos up,PF, sdv (FLUZONE QUAD) injection Sign this order in conjunction with theimmunization order to satisfy [place] Board [employer] Pharmacy Positive ID requirements for [...] this chart may have been created with Paperlit voice recognition software. Occasional wrong-word or sound-like [...] medications. documented in this encounter* Christa Sarmiento, LATONIA - 07/29/2020 7:07 AM EST Chief Complaint Patient presents with Weight Check [place]: Pt who is a pleasant 34-year-old female [...] BMI 37.9 Diet: Tracking calories with average 1582-5230 calories daily. Goal 7477-6246 calories daily. Days eating too much with [...] file Gets together: Not on file Attends oriental orthodox service: Not on file Active member of [...] tolerate. Atypical eating disorder - Primary Diet: 2275-4638 calories per day with a goal of 120 g/day protein and 60 g/day carbs Exercise Prescription: 3 days per week for 30 minutes- Goal 150 minutes per week Counselor/Therapist: Complete your nutrition evaluation and education at [facility] to eating patterns and [...] itching or pelvic pain. Last menstrual period: 12/3, lasted about 6 days/ Stopped on the [...] Vitals signs reviewed. Exam conducted with a logistics planner present. Constitutional: General: She is not in [...] this chart may have been created with Paperlit voice recognition software. Occasional wrong-word or sound-like [...] 7:35 AM EST Fax received from [facility]. Home visit 08/06/19 related to daughter Allen Howard,03/14/19. Pt. completed EPDS total 15. (Maximum score: 30 with Possible Depression: 10 or greater) Weekly visits indicated per SERGO Murphy, Phoned Jeffrey HAMMER for update. documented in this encounter* Emili Edouard, DIAGNOSTIC TECHNOLOGIST - 01/17/2019 2:49 PM EDT Chief Complaint [...] file Gets together: Not on file Attends oriental orthodox service: Not on file Active member of [...] 25 mcg by mouth daily . 3 prenat.vits,ronny,jun-jbyf-quflt Tab Take by mouth . No current [...] 25 mcg by mouth daily . 3 prenat.vits,ronny,evy-xomy-bvcql Tab Take by mouth . No current facility-administered medications for this visit. documented in this encounter* Christa Sarmiento CNP - 10/03/2020 7:10 AM EST Video Visit [facility] [address] [address] Via Real-time Synchronous Audiovisual [facility] 10/03/2020 Christa Sarmiento CNP Provider Location: office Patient Location Commodity Loan Clerk: None Patient Location: Patient's Home Patient: Aurora [...] that there are some limitations compared to dfck-hm-uhdh evaluations. We elected to proceed. [place]: Pt who is a pleasant 34-year-old female [...] file Gets together: Not on file Attends oriental orthodox service: Not on file Active member of [...] composition Atypical eating disorder - Primary Diet: 2452-5874 calories per day with a goal of 120 g/day protein and 60 g/day carbs Exercise Prescription: 3 days per week for 30 minutes- Goal 150 minutes per week Counselor/Therapist: Complete your nutrition evaluation and education at [facility] to eating patterns and [...] is a 35 y.o. female Video Visit [facility] [address] [facility] [address] [place] [address] Via Real-time Synchronous Audiovisual [facility] 10/10/2020 Evi Pacheco MD Provider Location: office Patient Location Commodity Loan Clerk: None Patient Location: Patient's Home Patient: Aurora [...] that there are some limitations compared to vvjw-bc-rfxr evaluations. We elected to proceed. Assessment/Plan: Problem [...] this chart may have been created with Paperlit voice recognition software. Occasional wrong-word or sound-like [...] in about 2 months (around 06/10/2019). Aurora Mendez is a 33 y.o. female who [...] legs. It was pruritic. She saw her chinese language professor and as prescribed oral steroids. The rash [...] to 225mcg. This was managed by her Desk Officer. She denies any palpitations, heat intolerance, skin [...] 25 mcg by mouth daily . 3 prenat.vits,ronny,epv-fjwk-gqqox Tab Take by mouth . arm brace Misc Wear the brace [...] Readings from Last 3 Encounters: 04/10/19 103/72 06/05/19 121/80 Physical Exam Vitals signs reviewed. Constitutional: [...] medications. documented in this encounter* Christa Sarmiento, LATONIA - 05/06/2020 7:20 AM EDT Chief Complaint Patient presents with Follow-up Atypical eating disorder. [place]: Pt who is a pleasant 34-year-old female [...] BMI 41.20 Diet: Tracking calories with average 0311-4626 calories daily. Goal 2844-9820 calories daily Snacks: Denies snacking Missing meals: [...] file Gets together: Not on file Attends oriental orthodox service: Not on file Active member of [...] tablet Atypical eating disorder - Primary Diet: 5511-0197 calories per day with a goal of 120 g/day protein and 60 g/day carbs Exercise Prescription: 3 days per week for 30 minutes- Goal 150 minutes per week Counselor/Therapist: Complete your nutrition evaluation and education at [facility] to eating patterns and [...] Patient presents with Follow-up Atypical eating disorder. [place]: Pt who is a pleasant 34-year-old female [...] file Gets together: Not on file Attends oriental orthodox service: Not on file Active member of [...] tolerate. Atypical eating disorder - Primary Diet: 3936-1497 calories per day with a goal of 120 g/day protein and 60 g/day carbs Exercise Prescription: 3 days per week for 30 minutes- Goal 150 minutes per week Counselor/Therapist: Complete your nutrition evaluation and education at [facility] to eating patterns and [...] file Gets together: Not on file Attends oriental orthodox service: Not on file Active member of [...] to tolerate. Weight gain - Primary Diet: 2632-0762 calories per day with a goal of 120 g/day protein and 60 g/day carbs Exercise Prescription: 3 days per week for 30 minutes- Goal 150 minutes per week Counselor/Therapist: I have placed a referral to the human services assistant, their office will call you to schedule [...] Patient presents with Follow-up Atypical eating disorder. [place]: Pt who is a pleasant 34-year-old female [...] BMI 38.23 Diet: Tracking calories with average 1384-2132 calories daily. Goal 0014-3579 calories daily. Good someday's at tracking bad [...] file Gets together: Not on file Attends oriental orthodox service: Not on file Active member of [...] able to tolerate. Atypical eating disorder Diet: 9526-5133 calories per day with a goal of 120 g/day protein and 60 g/day carbs Exercise Prescription: 3 days per week for 30 minutes- Goal 150 minutes per week Counselor/Therapist: Complete your nutrition evaluation and education at [facility] to eating patterns and [...] months (around 05/14/2021) for Thyroid f/u. Aurora Mendez is a 35 y.o. female [...] up to date Last pap smear (HPV): 2019 Last DEXA scan: n/a Last Colonoscopy: n/a HIV testing (age 15-65): up to date HCV testing (if born b/w 7397-6776): ordered Depression screen: positive STD screening: up [...] this chart may have been created with Paperlit voice recognition software. Occasional wrong-word or sound-like [...] documented in this encounter Reason for Referral StatusReasonSpecialtyDiagnoses / ProceduresReferred By ContactReferred To ContactPending ReviewRadiology Diagnoses Lymphadenopathy Procedures US Breast Right Complete Evi Pacheco MD [address] [place] [address] StatusReasonSpecialtyDiagnoses / ProceduresReferred By ContactReferred To ContactClosedBehavorist (Outpatient Social Work) Diagnoses Anxiety and depression Evi Pacheco MD [address] [place] [address] StatusReasonSpecialtyDiagnoses / ProceduresReferred By ContactReferred To ContactAuthorized Specialty Services Required/Patient's Best Interest Cardiology Diagnoses Leg swelling Procedures Ultrasound duplex venous leg left Evi Pacheco MD [address] [place] [address] [place] [address] StatusReasonSpecialtyDiagnoses / ProceduresReferred By ContactReferred To ContactAuthorized Specialty Services Required/Patient's Best Interest Radiology Diagnoses Lymphadenopathy Procedures Mammography Diagnostic Right Evi Pacheco MD [address] [place] [address] StatusReasonSpecialtyDiagnoses / ProceduresReferred By ContactReferred To ContactPending Review Specialty Services Required/Patient's Best Interest Radiology Diagnoses Lymphadenopathy Procedures US Breast Right Limited US Breast Right Complete Evi Pacheco MD [address] [place] [address] StatusReasonSpecialtyDiagnoses / ProceduresReferred By ContactReferred To ContactPending Review Specialty Services Required/Patient's Best Interest Radiology Diagnoses Lymphadenopathy Procedures Mammography Diagnostic Steve Bilateral Mammography Diagnostic Right Evi Pacheco MD [address] [place] [address] StatusReasonSpecialtyDiagnoses / ProceduresReferred By ContactReferred To ContactAuthorizedRadiology Diagnoses Vaginal bleeding Procedures US Transvaginal Evi Pacheco MD [address] [place] [address] StatusReasonSpecialtyDiagnoses / ProceduresReferred By ContactReferred To ContactAuthorized Specialty Services Required/Patient's Best Interest Dietitian/Safety Engineer / Nutrition Diagnoses Weight gain Christa Sarmiento, LATONIA [address] [place] [address] StatusReasonSpecialtyDiagnoses / ProceduresReferred By ContactReferred To ContactAuthorized Specialty Services Required/Patient's Best Interest Family Medicine / Bariatrics Diagnoses Atypical eating disorder Obesity, Class II, BMI 35-39.9 Christa Sarmiento, DIAGNOSTIC TECHNOLOGIST [address] [place] [address] Lamberto Russo MD [address] [place] [address] [address] [place] [address] SpecialtyDiagnoses / ProceduresReferred By ContactReferred To ContactSleep Medicine Diagnoses Sleep disorder Lamberto Russo MD [address] [facility] [address] [place] [address] [facility] [address] [place] [address] Referral IDStatusReasonStart DateExpiration DateVisits RequestedVisits [id number] Specialty Services Required/Patient's Best Interest /[id number] / ProceduresReferred By ContactReferred To ContactPulmonology Diagnoses Dyspnea, unspecified type Procedures Complete PFT with Pre and Post Bronchodilator volumes and dlco Lamberto Russo MD [address] [address] Referral IDStatusReasonStart DateExpiration DateVisits RequestedVisits [id number]/31/20218/31/[id number] / Procedures Referred By ContactReferred To ContactRadiology Diagnoses Elevated LFTs Procedures US Abdomen Limited Study Lamebrto Russo MD [address] [place] [address] Referral IDStatusReasonStart DateExpiration DateVisits RequestedVisits [id number]/31/20218/31/[id number] / Procedures Referred By ContactReferred To ContactNutrition Diagnoses BMI 45.0-49.9, adult (HCC) Lamberto Russo MD [address] [place] [address] [facility] [address] [place] [address] Referral IDStatusReasonStart DateExpiration DateVisits RequestedVisits [id number] Specialty Services Required/Patient's Best Interest [id number] / ProceduresReferred By ContactReferred To ContactRehabilitation Diagnoses Lumbar radiculopathy Lamberto Russo MD [address] [address] [facility] [address] [place] [address] Referral IDStatusReasonStart DateExpiration DateVisits RequestedVisits [id number] Specialty Services Required/Patient's Best Interest [id number] / ProceduresReferred By ContactReferred To ContactGeneral Surgery Diagnoses Rectal bleeding Evi Pacheco MD [address] [place] [address] Kyra Saavedra MD [address] [place] [address] Referral IDStatusReasonStart DateExpiration DateVisits RequestedVisits [id number]/14/20221/14/[id number] / Procedures Referred By ContactReferred To Contact Betina Pop CNP [address] [place] [address] Referral IDStatusReasonStart DateExpiration DateVisits RequestedVisits [id number] IDStatusReasonStart DateExpiration DateVisits RequestedVisits [id number] / Procedures Referred By ContactReferred To Contact Diagnoses Insulin resistance Betina Pop CNP [address] [place] [address] Referral IDStatusReasonStart DateExpiration DateVisits RequestedVisits [id number] IDStatusReasonStart DateExpiration DateVisits RequestedVisits [id number] Xtaqra74Krgleoce IDStatusReasonStart DateExpiration DateVisits RequestedVisits [id number] Review [id number] / ProceduresReferred By ContactReferred To ContactRadiology Diagnoses Abdominal wall seroma, subsequent encounter Postoperative state Procedures [place] [address] [address] Referral IDStatusReasonStart DateExpiration DateVisits RequestedVisits [id number]/[id number] / Procedures Referred By ContactReferred To ContactRadiology Diagnoses Abdominal wall seroma, subsequent encounter Procedures IR ASP ABSCESS/HEMATOMA/BULLA/[place] Lila Barr [place] [id number] [place] [address] Referral IDStatusReasonStart DateExpiration DateVisits RequestedVisits [id number]/[id number] / Procedures Referred By ContactReferred To ContactRadiology Diagnoses Abdominal wall seroma, subsequent encounter Procedures US ASP ABSCESS/HEMATOMA/BULLA/[place]ST Lila Barr [place] [address] [place] [address] Referral IDStatusReasonStart DateExpiration DateVisits RequestedVisits [id number]/15/20251/15/202611 Instructions * Patient Instructions* Evi Pacheco MD - 08/24/2019 8:43 AM EST I want you to call and schedule your mammogram. [facility]) [address] [place] [address] Call and schedule you appointment. I have ordered a Ultrasound of the left leg because of the swelling. I will call you with your labs as well. documented in this encounter* Patient Instructions* Christa Sarmiento CNP - 03/07/2020 4:16 PM EDT Problem List Items Addressed This Visit Endocrine Insulin resistance Other Obesity, Class II, BMI 35-39.9 Continue the currently prescribed calorie load and composition Relevant Medications topiramate (TOPAMAX) 50 MG tablet phentermine (ADIPEX-P) 37.5 mg tablet Atypical eating disorder - Primary Diet: 4225-6954 calories per day with a goal of 120 g/day protein and 60 g/day carbs Exercise Prescription: 3 days per week for 30 minutes- Goal 150 minutes per week Counselor/Therapist: Complete your nutrition evaluation and education at [facility] to eating patterns and [...] Log into your personal health record on [email or web address] and enter H930 in the Education box to learn more about Diet and Exercise for Metabolic Syndrome: Care Instructions. Current as of: April 05, 2019 Content Version: 12.5 1906-8053 [employer]. Care instructions adapted under license by your healthcare professional. If you have questions about a medical condition or this instruction, always ask your healthcare professional. [employer] disclaims any warranty or liability for your [...] tolerate. Atypical eating disorder - Primary Diet: 0301-5842 calories per day with a goal of 120 g/day protein and 60 g/day carbs Exercise Prescription: 3 days per week for 30 minutes- Goal 150 minutes per week Counselor/Therapist: Complete your nutrition evaluation and education at [facility] to eating patterns and [...] Log into your personal health record on [email or web address] and enter V914 in the Education box to learn more about Learning About Cutting Calories. Current as of: January 09, 2020 Content Version: 12.7 [employer]. Care instructions adapted under license by your healthcare professional. If you have questions about a medical condition or this instruction, always ask your healthcare professional. [employer] disclaims any warranty or liability for your use of this information. documented in this encounter* Patient Instructions* Emili Edouard CNP - 01/17/2019 3:24 PM EDT Can use the lidocaine patches at [facility]. May need only one/half patch at a [...] This will help reduce swelling. Take an dwkt-gqd-tinuouy pain medicine, such as acetaminophen (Tylenol), ibuprofen [...] Log into your personal health record on [email or web address] and enter P205 in the Education box to learn more about Joint Pain: Care Instructions. Current as of: May 04, 2018 Content Version: 12.0 4318-8327 [employer]. Care instructions adapted under license by your healthcare professional. If you have questions about a medical condition or this instruction, always ask your healthcare professional. [employer] disclaims any warranty or liability for your [...] Log into your personal health record on [email or web address] and enter E635 in the Education box to learn more about De Quervain's Disease: Exercises. Current as of: May 04, 2018 Content Version: 12.0 0820-0717 [employer]. Care instructions adapted under license by your healthcare professional. If you have questions about a medical condition or this instruction, always ask your healthcare professional. [employer] disclaims any warranty or liability for your [...] load and composition Atypical eating disorder Diet: 7092-4084 calories per day with a goal of 120 g/day protein and 60 g/day carbs Exercise Prescription: 3 days per week for 30 minutes- Goal 150 minutes per week Counselor/Therapist: Complete your nutrition evaluation and education at [facility] to eating patterns and [...] your doctor if you can take an xwvh-ncl-wztrysn pain medicine, such as acetaminophen (Tylenol),ibuprofen (Advil, [...] Log into your personal health record on [email or web address] and enter Y804 in the Education box to learn more about De Quervain's Tenosynovitis: Care Instructions. Current as of: May 04, 2018 Content Version: 12.1 2013-5035 [employer]. Care instructions adapted under license by your healthcare professional. If you have questions about a medical condition or this instruction, always ask your healthcare professional. [employer] disclaims any warranty or liability for your use of this information. documented in this encounter* Patient Instructions* Christa Sarmiento CNP - 05/06/2020 7:30 AM EDT Problem List [...] tablet Atypical eating disorder - Primary Diet: 8818-5155 calories per day with a goal of 120 g/day protein and 60 g/day carbs Exercise Prescription: 3 days per week for 30 minutes- Goal 150 minutes per week Counselor/Therapist: Complete your nutrition evaluation and education at [facility] to eating patterns and [...] Log into your personal health record on [email or web address] and enter V537 in the Education box to learn more about Insulin Resistance: Care Instructions. Current as of: August 03, 2019 Content Version: 12.5 4031-1193 [employer]. Care instructions adapted under license by your healthcare professional. If you have questions about a medical condition or this instruction, always ask your healthcare professional. [employer] disclaims any warranty or liability for your [...] tolerate. Atypical eating disorder - Primary Diet: 6119-6558 calories per day with a goal of 120 g/day protein and 60 g/day carbs Exercise Prescription: 3 days per week for 30 minutes- Goal 150 minutes per week Counselor/Therapist: Complete your nutrition evaluation and education at [facility] to eating patterns and [...] Log into your personal health record on [email or web address] and enter H930 in the Education box to learn more about Diet and Exercise for Metabolic Syndrome: Care Instructions. Current as of: January 09, 2020 Content Version: 12.7 [employer]. Care instructions adapted under license by your healthcare professional. If you have questions about a medical condition or this instruction, always ask your healthcare professional. [employer] disclaims any warranty or liability for your [...] to tolerate. Weight gain - Primary Diet: 6186-9068 calories per day with a goal of 120 g/day protein and 60 g/day carbs Exercise Prescription: 3 days per week for 30 minutes- Goal 150 minutes per week Counselor/Therapist: I have placed a referral to the human services assistant, their office will call you to schedule [...] Log into your personal health record on [email or web address] and enter V914 in the Education box to learn more about Learning About Cutting Calories. Current as of: April 04, 2019 Content Version: 12.3 [employer]. Care instructions adapted under license by your healthcare professional. If you have questions about a medical condition or this instruction, always ask your healthcare professional. [employer] disclaims any warranty or liability for your [...] Log into your personal health record on [email or web address] and enter V537 in the Education box to learn more about Insulin Resistance: Care Instructions. Current as of: November 28, 2018 Content Version: 12.3 5860-6414 [employer]. Care instructions adapted under license by your healthcare professional. If you have questions about a medical condition or this instruction, always ask your healthcare professional. [employer] disclaims any warranty or liability for your [...] able to tolerate. Atypical eating disorder Diet: 4779-7329 calories per day with a goal of 120 g/day protein and 60 g/day carbs Exercise Prescription: 3 days per week for 30 minutes- Goal 150 minutes per week Counselor/Therapist: Complete your nutrition evaluation and education at [facility] to eating patterns and [...] Log into your personal health record on [email or web address] and enter S933 in the Education box to learn more about Bulimia: Care Instructions. Current as of: September 14, 2019 Content Version: 12.6 [employer]. Care instructions adapted under license by your healthcare professional. If you have questions about a medical condition or this instruction, always ask your healthcare professional. [employer] disclaims any warranty or liability for your [...] Log into your personal health record on [email or web address] and enter P072 in the Education box to learn more about Well Visit, Ages 18 to 50: Care Instructions. Current as of: January 09, 2020 Content Version: 12.7 5462-8501 Healthwise, [employer]. Care instructions adapted under license by your healthcare professional. If you have questions about a medical condition or this instruction, always ask your healthcare professional. [employer] disclaims any warranty or liability for your [...] sent through Care Everywhere. * : HIGH-RISK (CHINESE) * : WEEKS 18 TO 22 (CHINESE) in this encounter Additional Source Comments INFORMATION SOURCE (unrecogn ized section and content) DATE CREATED AUTHOR 09/13/2018 [facility] DATE CREATED AUTHOR AUTHOR'S ORGANIZ ATION 09/28/2018 [facility] DATE CREATED AUTHOR AUTHOR'S ORGANIZ ATION 03/26/2019 [facility] DATE CREATED AUTHOR AUTHOR'S ORGANIZ ATION 07/08/2021 [facility] DATE CREATED AUTHOR AUTHOR'S ORGANIZ ATION 07/14/2021 [facility] DATE CREATED AUTHOR AUTHOR'S ORGANIZ ATION 10/04/2021 [facility] DATE CREATED AUTHOR AUTHOR'S ORGANIZ ATION 02/03/2022 [facility] DATE CREATED AUTHOR AUTHOR'S ORGANIZ ATION 07/19/2023 [facility] DATE CREATED AUTHOR AUTHOR'S ORGANIZ ATION 08/15/2023 [facility] DATE CREATED AUTHOR AUTHOR'S ORGANIZ ATION 06/16/2024 [facility] DATE CREATED AUTHOR AUTHOR'S ORGANIZ ATION 07/29/2024 [facility] DATE CREATED AUTHOR AUTHOR'S ORGANIZ ATION 09/01/2024 [facility] DATE CREATED AUTHOR AUTHOR'S ORGANIZ ATION 09/02/2024 [facility] DATE CREATED AUTHOR AUTHOR'S ORGANIZ ATION 10/21/2024 [facility] DATE CREATED AUTHOR AUTHOR'S ORGANIZ ATION 02/16/2025 [facility] DATE CREATED AUTHOR AUTHOR'S ORGANIZ ATION 06/18/2025 [facility] Reason for Visit (unrecogniz ed section and content) ReasonCommentsChronic Kidney DiseaseHealth department follow upReasonComments Care CoordinationBHPReasonCommentsAnxietyGAD 7Breast Painright breastEdemaStatus ReasonSpecialtyDiagnoses / ProceduresReferred By ContactReferred To Contact Pending Review Specialty Services Required/Patient's Best Interest Radiology Diagnoses Lymphadenopathy Procedures US Breast Right Limited US Breast Right Complete Evi Pacheco MD [address] [place] [address] StatusReasonSpecialtyDiagnoses / ProceduresReferred By ContactReferred To ContactPending Review Specialty Services Required/Patient's Best Interest Radiology Diagnoses Lymphadenopathy Procedures Mammography Diagnostic Steve Bilateral Mammography Diagnostic Right Evi Pacheco MD [address] [place] [address] ReasonCommentsCare coordination BHPReasonCommentsMood SwingsThyroid ProblemLeg SwellingReasonCommentsWeight GainReasonCommentsAlopeciaHypothyroidismReason CommentsWeight CheckReasonCommentsDysuriaReasonCommentsChronic Care ManagementPH FPC visitsReasonCommentsWrist Painx last week. No known injuryReason CommentsURIReasonCommentsRashWrist PainReasonCommentsFollow-upAtypical eating disorder.ReasonCommentsObesityReasonCommentsDizzinessStates she gets cold, clammy, sweaty, blurred/dark vision, nauseous and feels like she is about to p ass out. States Dr. Viveros told her to go to the ER. Denies leaking of fluid or bleeding. States shefeels baby move sometimesReasonCommentsFollow-upAtypical eating disorder.ReasonCommentsAnnual ExamGynecologic [id number] Last Pap 2018 neg ReasonOnset DateCommentsMedication [id number] rt lower leg painPainReasonCommentsObesitymwm BarkerReasonCommentsWeight GainSpecialty Diagnoses / ProceduresReferred By ContactReferred To ContactNutrition Diagnoses Obesity, Class II, BMI 35-39.9 Atypical eating disorder Evi Pacheco MD [address] [place] [address] Map Medweight [facility] [address] [place] [address] Referral IDStatusReasonStart DateExpiration DateVisits RequestedVisits [id number] Specialty Services Required/Patient's Best Interest [id number] LossObesityReasonCommentsWeight Loss ObesityReasonCommentsCoughReasonCommentsObesityWeight LossReasonCommentsRectal BleedingReasonOnset DateCommentsMedication [id number] Date CommentsMedication [id number] DateCommentsMedication Refill 09/14/2022ReasonCommentsObesityWeight LossReasonOnset DateCommentsMedication Xdmmgi0401/11/2023ReasonOnset DateCommentsMedication Izjjyd8904/07/2023ReasonOnset DateCommentsMedication [id number] DateCommentsMedication Refill 4ReasonCommentsWell Women VisitSpecialtyDiagnoses / ProceduresReferred By ContactReferred To Contact Diagnoses 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 Symptomatic abdominal panniculus [E65] Diastasis of rectus abdominis [M62.08] Procedures DC EXCISION SKIN ABD INFRAUMBILICAL PANNICULECTOMY DC EXCISION EXCESSIVE SKIN & SUBQ TISSUE ABDOMEN PANNICULECTOMY, ABDOMINOPLASTY, BIOPATCH AROUND TAMY, INCISIONAL WOUND VAC, ( PREVENA) , TAP BLOCK NEEDS TRAFFIC [place] [address] [id number] [facility] [address] [place] [address] Referral IDStatusReasonStart DateExpiration DateVisits RequestedVisits [id number] / ProceduresReferred By ContactReferred To ContactRadiology Diagnoses Abdominal wall seroma, subsequent encounter Postoperative state Procedures [place] [address] [address] Referral IDStatusReasonStart DateExpiration DateVisits RequestedVisits [id number]/[id number] / Procedures Referred By ContactReferred To ContactRadiology Diagnoses Abdominal wall seroma, subsequent encounter Procedures US ASP ABSCESS/HEMATOMA/BULL[place] [address] [place] [address] Referral IDSMariannaStdaja DateExpiration DateVisits RequestedVisits [id number]/15/20251/[id number] Weight Management? New labReasonCommentsMedical Weight ManagementReasonOnset Date CommentsNo Show05/15/2025 Assessment & Plan Note - Evi Pacheco [...] did refer her at this time to auto heater mechanic. Being that most of her anxiety is [...] the currently prescribed calorie load and composition * Assessment & Plan Note - Christa Sarmiento CNP - 03/07/2020 4:44 PM EDT Associated Problem(s): Sleep disturbance Trial the Ambien to see if this helps with your sleep patterns. Take this around 10 am. * Assessment & Plan Note - Christa Sarmiento CNP - 03/07/2020 4:16 PM EDT Associated Problem(s): Obesity, Class II, BMI 35-39.9 Continue the currently prescribed calorie load and composition * Assessment & Plan Note - Christa Sarmiento CNP - 03/07/2020 4:16 PM EDT Associated Problem(s): Atypical eating disorder Diet: 1139-5380 calories per day with a goal of 120 g/day protein and 60 g/day carbs Exercise Prescription: 3 days per week for 30 minutes- Goal 150 minutes per week Counselor/Therapist: Complete your nutrition evaluation and education at [facility] Lifestylechanges to eating patterns and macronutrient composition as well as activity levels discussed in detail Medications: Wellbutrin 300 daily, Topamax 25 daily, synthroid 225. Topamax increased to 50 twice daily Follow-up: 2 weeks documented in this encounter* Assessment & Plan Note - Evi Pacheco MD - 04/23/2020 5:22 PM EDT Associated Problem(s): Anxiety and depression Chronic, handling her moods better however several stressors still present her life. Wellbutrin switched to extended release to help with adherence. * Assessment & Plan Note - Evi Pacheco MD - 04/23/2020 5:22 PM EDT Associated Problem(s): Hypothyroidism May be contributing to her hair loss. Will get TSH and T4 levels. She is taking medications as prescribed. documented in this encounter* Assessment & Plan Note - Christa Sarmiento CNP - 07/29/2020 7:13 AM EST Associated Problem(s): Hypothyroidism You will need to have your thyroid level rechecked to make sure you are on the correct dose of levothyroxine. * Assessment & Plan Note - Christa Sarmiento CNP - 07/29/2020 7:12 AM EST Associated Problem(s): Anxiety and depression Continue meds as prescribed, watch diet, and increase activity as able to tolerate. * Assessment & Plan Note - Christa Sarmiento CNP - 07/29/2020 7:11 AM EST Associated Problem(s): Obesity, Class II, BMI 35-39.9 Continue the currently prescribed calorie load and composition * Assessment & Plan Note - Christa Sarmiento CNP - 07/29/2020 7:08 AM EST Associated Problem(s): Atypical eating disorder Diet: 4012-4015 calories per day with a goal of 120 g/day protein and 60 g/day carbs Exercise Prescription: 3 days per week for 30 minutes- Goal 150 minutes per week Counselor/Therapist: Complete your nutrition evaluation and education at [facility]estyle[facility] to eating patterns and macronutrient composition as well as activity levels discussed in detail Medications: Wellbutrin 300 daily, Topamax 50 BID, synthroid 225 Follow-up: 4 weeks documented in this encounter* Addendum Note - Evi Pacheco MD - 08/04/2020 3:48 PM EST Addended by: EVI PACHECO on: 08/04/2020 03:48 PM Modules accepted: Orders * Assessment & Plan Note - Evi Pacheco MD - 08/04/2020 3:42 PM EST Associated Problem(s): Hypothyroidism This is a chronic problem you are currently taking Synthroid. We will check your thyroid levels to see if you are causing any issues with your menstrual cycles. * Assessment & Plan Note - Evi Pacheco MD - 08/04/2020 3:41 PM EST Associated Problem(s): Vaginal bleeding On physical exam [...] testing was done today. documented in this encounter* Assessment & Plan Note - Christa Sarmiento CNP - 10/03/2020 7:21 AM EST Associated Problem(s): Hypothyroidism Continue meds as prescribed, watch diet, and increase activity as able to tolerate. * Assessment & Plan Note - Christa Sarmiento CNP - 10/03/2020 7:21 AM EST Associated Problem(s): Migraine Continue meds as prescribed, watch diet, and increase activity as able to tolerate. * Assessment & Plan Note - Christa Sarmiento CNP - 10/03/2020 7:20 AM EST Associated Problem(s): Obesity, Class II, BMI 35-39.9 Continue the currently prescribed calorie load and composition * Assessment & Plan Note - Christa Sarmiento CNP - 10/03/2020 7:14 AM EST Associated Problem(s): Atypical eating disorder Diet: 8752-5617 calories per day with a goal of 120 g/day protein and 60 g/day carbs Exercise Prescription: 3 days per week for 30 minutes- Goal 150 minutes per week Counselor/Therapist: Complete your nutrition evaluation and education at [facility] to eating patterns and macronutrient composition as well as activity levels discussed in detail Medications: Wellbutrin 300 daily, Topamax 75 BID, synthroid 225 Follow-up: 4 weeks documented in this encounter* Assessment & Plan Note - Evi Pacheco MD - 04/10/2019 2:57 PM EDT Associated Problem(s): Hypothyroidism -This is secondary to [...] can come in and be checked sooner. * Assessment & Plan Note - Evi Pacheco MD - 04/10/2019 2:55 PM EDT Associated Problem(s): Tenosynovitis of right wrist -This is a new problem likely secondary to increased use with her . We discussed resting herwrist as much as possible. As well as utilizing a brace to help. She is to ice and use ibuprofen asneeded. I reiterate that this may take time to resolve due to her chronic use with a baby. documented in this encounter* Assessment & Plan Note - Christa Sarmiento CNP - 05/06/2020 7:43 AM EDT Associated Problem(s): Anxiety and depression Continue meds as prescribed, watch diet, and increase activity as able to tolerate. * Assessment & Plan Note - Christa Sarmiento CNP - 05/06/2020 7:43 AM EDT Associated Problem(s): Hypothyroidism Continue meds as prescribed, watch diet, and increase activity as able to tolerate. * Assessment & Plan Note - Christa Sarmiento CNP - 05/06/2020 7:43 AM EDT Associated Problem(s): Sleep disturbance Medications like Ambien effects the central nervous system placing you at higher risk for fall, dependence, possible overdose, and . Reported side effects include dizziness, weakness, loss of coordination, daytime drowsiness, nasal congestion, nausea,vomiting, diarrhea, constipation, headache,muscle pain, confusion, walking and eating during sleep, and visual changes. Risk and benefit of taking this medication has been discussed. * Assessment & Plan Note - Christa Sarmiento CNP - 05/06/2020 7:41 AM EDT Associated Problem(s): Atypical eating disorder Diet: 1459-0554 calories per day with a goal of 120 g/day protein and 60 g/day carbs Exercise Prescription: 3 days per week for 30 minutes- Goal 150 minutes per week Counselor/Therapist: Complete your nutrition evaluation and education at [facility] to eating patterns and macronutrient composition as well as activity levels discussed in detail Medications: Wellbutrin 300 daily, Topamax 50 BID, synthroid 225 and phentermine round 3 Follow-up: 4 weeks documented in this encounter* Assessment & Plan Note - Christa Sarmiento CNP - 08/29/2020 8:04 AM EST Associated Problem(s): Migraine I have increased your Topamax to 75 mg twice daily to help with migraine and cravings * Assessment & Plan Note - Christa Sarmiento CNP - 08/29/2020 7:26 AM EST Associated Problem(s): Hypothyroidism Continue meds as prescribed, watch diet, and increase activity as able to tolerate. * Assessment & Plan Note - Christa Sarmiento CNP - 08/29/2020 7:26 AM EST Associated Problem(s): Anxiety and depression Continue meds as prescribed, watch diet, and increase activity as able to tolerate. * Assessment & Plan Note - Christa Sarmiento CNP - 08/29/2020 7:26 AM EST Associated Problem(s): Obesity, Class II, BMI 35-39.9 Continue the currently prescribed calorie load and composition * Assessment & Plan Note - Christa Sarmiento CNP - 08/29/2020 7:25 AM EST Associated Problem(s): Atypical eating disorder Diet: 5046-6307 calories per day with a goal of 120 g/day protein and 60 g/day carbs Exercise Prescription: 3 days per week for 30 minutes- Goal 150 minutes per week Counselor/Therapist: Complete your nutrition evaluation and education at [facility] to eating patterns and macronutrient composition as well as activity levels discussed in detail Medications: Wellbutrin 300 daily, Topamax 75 BID, synthroid 225 Follow-up: 4 weeks documented in this encounter* Assessment & Plan Note - Christa Sarmiento CNP - 02/11/2020 9:48 AM EDT Associated Problem(s): Hypothyroidism Continue meds as prescribed, watch diet, and increase activity as able to tolerate. It is essential that you take your medication daily as prescribed to maintain a stable thyroid level to help with your anxiety and weight * Assessment & Plan Note - Christa Sarmiento CNP - 02/11/2020 9:06 AM EDT Associated Problem(s): Anxiety and depression Continue meds as prescribed, watch diet, and increase activity as able to tolerate. * Assessment & Plan Note - Christa Sarmiento CNP - 02/06/2020 12:42 PM EDT Associated Problem(s): Weight gain Diet: 8009-0891 calories per day with a goal of 120 g/day protein and 60 g/day carbs Exercise Prescription: 3 days per week for 30 minutes- Goal 150 minutes per week Counselor/Therapist: I have placed a referral to the human services assistant, their office will call you to schedule Behavioral Lifestylechanges to eating patterns and macronutrient composition as well as activity levels discussed in detail Medications: Wellbutrin 300 daily, Topamax 25 daily, synthroid Follow-up: 2 weeks documented in this encounter* Assessment & Plan Note - Christa Sarmiento CNP - 07/01/2020 7:14 AM EST Associated Problem(s): Obesity, Class II, BMI 35-39.9 Continue the currently prescribed calorie load and composition * Assessment & Plan Note - Christa Sarmiento CNP - 07/01/2020 7:14 AM EST Associated Problem(s): Anxiety and depression Continue meds as prescribed, watch diet, and increase activity as able to tolerate. * Assessment & Plan Note - Christa Sarmiento CNP - 07/01/2020 7:13 AM EST Associated Problem(s): Hypothyroidism Continue meds as prescribed, watch diet, and increase activity as able to tolerate. * Assessment & Plan Note - Christa Sarmiento CNP - 07/01/2020 7:13 AM EST Associated Problem(s): Atypical eating disorder Diet: 6827-4046 calories per day with a goal of 120 g/day protein and 60 g/day carbs Exercise Prescription: 3 days per week for 30 minutes- Goal 150 minutes per week Counselor/Therapist: Complete your nutrition evaluation and education at [facility]estyle[facility] to eating patterns and macronutrient composition as well as activity levels discussed in detail Medications: Wellbutrin 300 daily, Topamax 50 BID, synthroid 225 Follow-up: 4 weeks documented in this encounter* Assessment & Plan Note - Evi Pacheco MD - 11/12/2020 11:39 AM EDT Associated Problem(s): Hypothyroidism Will check your labs today. We discussed taking all of our pills on one day to help with adherence.We discussed risk of uncontrolled hypothyroidism. This will affect your weight loss, mood and your menstrual cycle. * Assessment & Plan Note - Evi Pacheco MD - 11/12/2020 11:37 AM EDT Associated Problem(s): Anxiety and depression We discussed [...] discontinuing and trying another weight loss medication. * Assessment & Plan Note - Evi Pacheco MD - 11/12/2020 11:36 AM EDT Associated Problem(s): Annual physical exam -Counseled on [...] Care Teams (unrecognized sec tion and content) Team MemberRelationshipSpecialtyStart DateEnd Date Evi Pacheco MD [address] [place] [phone] PCP - [facility]04/11/19 Rochelle Martinez LPC Independent ClinicianBehavioral Health08/24/19Te MemberRelationshipSpecialty Start DateEnd Date Evi Pacehco MD [address] [place] [address] [phone] PCP - [facility]04/11/19 Rochelle Martinez LPC Independent ClinicianBehavioral Health08/24/19Team MemberRelationshipSpecialty Start DateEnd Date Evi Pacheco MD [address] [place] [address] [phone] PCP - [facility]04/11/19 Rochelle Martinez LPC Independent ClinicianBehavioral Health08/24/19am MemberRelationshipSpecialty Start DateEnd Date Evi Pacheco MD [address] [place] [address] [phone] PCP - [facility]04/11/19 Rochelle Martinez LPC Independent ClinicianBehavioral Health08/24/19Team MemberRelationshipSpecialty Start DateEnd Date Evi Pacheco MD [address] [place] [address] [phone] PCP - [facility]04/11/19 Rochelle Martinez LPC Independent ClinicianBehavioral Health08/24/19Team MemberRelationshipSpecialty Start DateEnd Date Evi Pacheco MD [address] [place] [address] [phone] PCP - [facility]04/11/19 Rochelle Martinez LPC Independent ClinicianBehavioral Health08/24/19Team MemberRelationshipSpecialty Start DateEnd Date Evi Pacheco MD [address] [place] [address] [phone] PCP - [facility]04/11/19 Rochelle Martinez LPC Independent ClinicianBehavioral Health08/24/19Team MemberRelationshipSpecialty Start DateEnd Date Evi Pacheco MD [address] [facility] [address] [place] [address] [phone] PCP - [facility]04/11/19 Rochelle Martinez, JANE Independent ClinicianBehavioral Health08/24/19Team MemberRelationshipSpecialty Start DateEnd Date Evi Pacheco MD [address] [facility] [address] [place] [address] [phone] PCP - [facility]04/11/19 Rochelle Martinez LPC Independent ClinicianBehavioral Health08/24/19Team MemberRelationshipSpecialty Start DateEnd Date Evi Pacheco MD [address] [facility] [address] [place] [address] [phone] PCP - [facility]04/11/19 Rochelle Martinez COMMUNITY SERVICE REPRESENTATIVE Independent ClinicianBehavioral Health08/24/19Team MemberRelationshipSpecialty Start DateEnd Date Evi Pacheco MD [address] [place] [address] [phone] [facility]04/11/19 Rochelle Martinez LPC Independent ClinicianBehavioral Health08/24/19Team MemberRelationshipSpecialty Start DateEnd Date Evi Pacheco MD [address] [place] [address] [phone] PCP - [facility]04/11/19 Rochelle Martinez LPC Independent ClinicianBehavioral Health08/24/19Team MemberRelationshipSpecialty Start DateEnd Date Evi Pacheco MD [address] [place] [address] [phone] PCP - [facility]04/11/19 Rochelle Martinez, JANE Independent ClinicianBehavioral Health08/24/19Team MemberRelationshipSpecialty Start DateEnd Date Evi Pacheco MD [facility] [facility] [address] [place] [phone] PCP - [facility]04/11/19 Rochelle Martinez LPC Independent ClinicianBehavioral Health08/24/19Team MemberRelationshipSpecialty Start DateEnd Date Evi Pacheco MD [facility] [facility] [address] [place] [address] [phone] PCP - [facility]04/11/19 Rochelle Martinez LPC Independent ClinicianBehavioral Health08/24/19Team MemberRelationshipSpecialty Start DateEnd Date Evi Pacheco MD [address] [place] [address] [phone] PCP - [facility]04/11/19 Rochelle Martinez LPC Independent ClinicianBehavioral Health08/24/19Team MemberRelationshipSpecialty Start DateEnd Date Evi Pacheco MD [address] [place] [address] [phone] PCP - [facility]04/11/19 Rochelle Martinez, JANE Independent ClinicianBehavioral Health08/24/19Team MemberRelationshipSpecialty Start DateEnd Date Evi Pacheco MD [address] [place] [address] [phone] PCP - [facility]04/11/19 Rochelle Martinez, COMMUNITY SERVICE REPRESENTATIVE Independent ClinicianBehavioral Health08/24/19Team MemberRelationshipSpecialty Start DateEnd Date Evi Pacheco MD [address] [place] [address] [phone] PCP - [facility]04/11/19 Rochelle Martinez, JANE Independent ClinicianBehavioral Health08/24/19Team MemberRelationshipSpecialty Start DateEnd Date Evi Pacheco MD [address] [place] [address] [phone] PCP - [facility]04/11/19 Rochelle Martinez, JANE Independent ClinicianBehavioral Health08/24/19Team MemberRelationshipSpecialty Start DateEnd Date Evi Pacheco MD [address] [place] [address] [phone] PCP - [facility]04/11/19 Rochelle Martinez, JANE Independent ClinicianBehavioral Health08/24/19Team MemberRelationshipSpecialty Start DateEnd Date Evi Pacheco MD [address] [place] [address] [phone] PCP - [facility]04/11/19 Rochelle Martinez, COMMUNITY SERVICE REPRESENTATIVE Independent ClinicianBehavioral Health08/24/19Team MemberRelationshipSpecialty Start DateEnd Date Evi Pacheco MD [address] [place] [address] [phone] PCP - [facility]04/11/19 Rochelle Martinez, JANE Independent ClinicianBehavioral Health08/24/19Team MemberRelationshipSpecialty Start DateEnd Date Evi Pacheco MD [address] [place] [address] [phone] [facility]04/11/19 Rochelle Martinez LPC Independent ClinicianBehavioral Health08/24/19Team MemberRelationshipSpecialty Start DateEnd Date Evi Pacheco MD [address] [place] [address] [phone] PCP - [facility]04/11/19 Rochelle Martinez LPC Independent ClinicianBehavioral Health08/24/19Team MemberRelationshipSpecialty Start DateEnd Date Evi Pacheco MD [address] [place] [address] [phone] PCP - [facility]04/11/19 Rochelle Martinez LPC Independent ClinicianBehavioral Health08/24/19Team MemberRelationshipSpecialty Start DateEnd Date Evi Pacheco MD [address] [place] [address] [id number] PCP - [facility] Medicine04/11/19 Rochelle Martinez LPC Independent ClinicianBehavioral Health08/24/19Team MemberRelationshipSpecialty Start DateEnd Date Evi Pacheco MD [address] [place] [address] [id number] PCP - [facility] Medicine04/11/19 Rochelle Martinez, COMMUNITY SERVICE REPRESENTATIVE Independent ClinicianBehavioral Health08/24/19Team MemberRelationshipSpecialty Start DateEnd Date Evi Pacheco MD [address] [place] [address] [id number] PCP - [facility] Medicine04/11/19 Rochelle Martinez LPC Independent ClinicianBehavioral Health08/24/19Team MemberRelationshipSpecialty Start DateEnd Date Evi Pacheco MD [address] [place] [address] [id number] PCP - [facility] Medicine04/11/19 Rochelle Martinez LPC Independent ClinicianBehavioral Health08/24/19Team MemberRelationshipSpecialty Start DateEnd Date Evi Pacheco MD [address] [place] [address] [id number] PCP - [facility]04/11/19 Rochelle Martinez LPC Independent ClinicianBehavioral Health08/24/19Team MemberRelationshipSpecialty Start DateEnd Date Evi Pacheco MD [address] [place] [address] [phone] PCP - [facility]04/11/19 Rochelle Martinez LPC Independent ClinicianBehavioral Health08/24/19Team MemberRelationshipSpecialty Start DateEnd Date Evi Pacheco MD [address] [place] [address] [id number] PCP - [facility] Medicine04/11/19 Rochelle Martinez LPC Independent ClinicianBehavioral Health08/24/19Team MemberRelationshipSpecialty Start DateEnd Date Evi Pacheco MD [address] [place] [address] [id number] PCP - [facility] Medicine04/11/19 Rochelle Martinez, JANE Independent ClinicianBehavioral Health08/24/19 MemberRelationshipSpecialty Start DateEnd Date Evi Pacheco MD [address] [place] [address] [phone] [facility]04/11/19 Rochelle Martinez LPC Independent ClinicianBehavioral Health08/24/19 MemberRelationshipSpecialty Start DateEnd Date Evi Pacheco MD [address] [place] [address] [phone] PCP - [facility]04/11/19 Rochelle Martinez, JANE Independent ClinicianBehavioral Health08/24/19 MemberRelationshipSpecialty Start DateEnd Date Evi Pacheco MD [address] [place] [address] [id number] PCP - [facility]04/11/19 Rochelle Martinez LPC Independent ClinicianBehavioral Health08/24/19 MemberRelationshipSpecialty Start DateEnd Date Marcia Grimm MD [address] [place] [address] PCP - [facility]06/13/23 MemberRelationshipSpecialtyStart Date End Date Marcia Grimm MD [address] [place] [address] PCP - [facility]06/13/23 MemberRelationshipSpecialtyStart Date End Date Marcia Grimm MD [address] [place] [address] PCP - [facility]06/13/23 MemberRelationshipSpecialtyStart Date End Date Marcia Grimm [address] [place] [address] PCP - General12/16/23Team MemberRelationshipSpecialtyStart DateEnd Date Marcia Grimm DO [address] [place] [address] PCP - General12/16/23Team MemberRelationshipSpecialtyStart DateEnd Date Marcia Grimm [address] [place] [address] PCP - General12/16/23Team MemberRelationshipSpecialtyStart DateEnd Date Marcia Grimm DO [address] [place] [address] PCP - General12/16/23am MemberRelationshipSpecialtyStart DateEnd Date Evi Pacheco MD [address] [place] [address] [place] [phone] [facility] Rochelle Martinez LPC Independent ClinicianBehavioral Health08/24/19Team MemberRelationshipSpecialty Start DateEnd Date No, Physician [facility] PCP - General01/03/25 Rochelle Martinez LPC Independent ClinicianBehavioral Health08/24/19Team MemberRelationshipSpecialty Start DateEnd Date No, Physician [facility] PCP - General01/03/25 Rochelle Martinez LPC Independent ClinicianBehavioral Health08/24/19Team MemberRelationshipSpecialty Start DateEnd Date No, Physician [facility] PCP - [facility]01/03/25 Rochelle Martinez LPC Independent ClinicianBehavioral Health1/10/20Team MemberRelationshipSpecialty Start DateEnd Date No, Physician [facility] PCP - General01/03/25 Rochelle Martinez LPC Independent ClinicianBehavioral Health08/24/19 MemberRelationshipSpecialty Start DateEnd Date No, Physician [facility] PCP - General01/03/25 Rochelle Martinez LPC Independent ClinicianBehavioral [facility]08/24/19 MemberRelationshipSpecialty Start DateEnd Date No, Physician [facility] PCP - General01/03/25 Rochelle Martinez LPC Independent ClinicianBehavioral [facility]08/24/19 MemberRelationshipSpecialty Start DateEnd Date No, Physician [facility] PCP - General01/03/25 Rochelle Martinez LPC [facility]/19 MemberRelationshipSpecialty Start DateEnd Date Marcia Grimm MD [address] [facility] [place] [address] PCP - GeneralFamily Hdgmegus18/30/23 Ordered Prescriptions (unrec ognized section and content) PrescriptionSigDispensedRefillsStart DateEnd Date cephALEXin (KEFLEX) 500 MG capsule Take 1 capsule by mouth 2 times daily for 10 days 20 capsule HYDROcodone-acetaminophen (NORCO) 5-325 MG per tablet Indications:S/P panniculectomyTake 1 tablet by mouth every 6 hours as needed for Pain for up to 7 days. Intended supply: 7 days. Take lowest dose possible to manage pain Max Daily Amount: 4 tablets 28 tablet gabapentin (NEURONTIN) 300 MG capsule Take 1 capsule by mouth 3 times daily for 10 days. Intended supply: 30 days 30 capsule baclofen (LIORESAL) 10 MG tablet Take 1 tablet by mouth 3 times daily for 10 days 30 tablet ondansetron (ZOFRAN-ODT) 4 MG disintegrating tablet Take 1 tablet by mouth 3 times daily as needed for Nausea or Vomiting 21 tablet 07/26/2024 Scheduled Active and Recently Administ ered Medications (unrecognized section and content) Medication Order//07/2024 acetaminophen (TYLENOL) tablet 1,000 mg (COMPLETED) 1,000 mg, Oral, ONCE, 1 dose, On Maritza 07/26/24 at 0745, Maximum dose of acetaminophen is 4000 mg from all sources in 24 hours. * 0736 (Given - Provider: Amber Heller RN) ceFAZolin (ANCEF) 2000 mg in 20 mL IV syringe (COMPLETED) 2,000 mg, IntraVENous, at 40 mL/hr, Administer over 30 Minutes, ONCE, On Maritza 07/26/24 at 0745, For 1 dose, Administer over 5 mins., STAT * 0927 (Given - Provider: Valentino Mixon RN) ePHEDrine injection 15 mg (COMPLETED) 15 mg, IntraVENous, ONCE, 1 dose, On Maritza 07/26/24 at 1615, STAT, PACU only * 1611 (Given - Provider: Madeline Bautista RN) lactated ringers bolus 1,000 mL (COMPLETED) 1,000 mL, IntraVENous, at 983.6 mL/hr, Administer over 61 Minutes, ONCE, On Maritza 07/26/24 at 1430, For 1 dose, PACU only, STAT * 1419 (New Bag - Provider: Madeline Bautista RN) * 1520 (Stopped - Provider: Madeline Bautista RN) promethazine (PHENERGAN) tablet 12.5 mg (COMPLETED) 12.5 mg, Oral, ONCE, 1 dose, On Maritza 07/26/24 at 0745 * 0736 (Given - Provider: Amber Heller RN) scopolamine (TRANSDERM-SCOP) transdermal patch 1 patch 1 patch, TransDERmal, Administer over 72 Hours, ONCE, On Maritza 07/26/24 at 0745, For 1 dose, delivers1 mg over 3 days. Apply patch to hairless area behind the ear. * 0736 (Patch Applied - Provider: Amber Heller RN - Comment: right ear) sodium chloride flush 0.9 % injection 5-40 mL 5-40 mL, IntraVENous, EVERY 12 HOURS SCHEDULED (2 times per day), First dose on Maritza 07/26/24 at 0900, Until Discontinued, For Line Patency: Peripheral IV = 5 mL; Midline or Central Line = 10 mL/lumen. If following IV push medication, administer flush at same rate as the IV push. Flush volume is determined by type of infusion therapy being given. For non-viscous solutions use: Peripheral IV = 5 mLMidline or Central Line = 10 mL/lumen For viscous solutions (i.e. blood components, parenteral nutrition, contrast media, or after obtaining blood sample) use: Peripheral IV = 10 mL Midline or Central Line = 20 mL/lumen, Pre-op (day of surgery) * 0900 (Due) * 2100 (Due) sodium chloride flush 0.9 % injection 5-40 mL 5-40 mL, IntraVENous, EVERY 12 HOURS SCHEDULED (2 times per day), First dose on Maritza 24 at 2100, Until Discontinued, For Line Patency: Peripheral IV = 5 mL; Midline or Central Line = 10 mL/lumen. If following IV push medication, administer flush at same rate as the IV push. Flush volume is determined by type of infusion therapy being given. For non-viscous solutions use: Peripheral IV = 5 mLMidline or Central Line = 10 mL/lumen For viscous solutions (i.e. blood components, parenteral nutrition, contrast media, or after obtaining blood sample) use: Peripheral IV = 10 mL Midline or Central Line = 20 mL/lumen, PACU only * 2100 (Due) Medication Order 0.9 % sodium chloride infusion IntraVENous, at 125 mL/hr, CONTINUOUS, Starting on Maritza 24 at 0730, Pre-op (day of surgery) * 0730 (New Bag - Provider: Amber Heller RN) * 0916 (NoRateChange - Provider: Valentino Mixon RN) * 0916 (Paused - Provider: Valentino Mixon RN - Comment: Switch to gravity) * 0917 (Restarted - Provider: Valentino Mixon RN) * 0955 (New Bag - Provider: Valentino Mixon RN) * 1042 (Anesthesia Volume Adjustment - Provider: Valentino Mixon RN) * 1233 (Anesthesia Volume Adjustment - Provider: Valentino Mixon RN) * 1419 (Stopped - Provider: Madeline Bautista RN) lactated ringers infusion IntraVENous, at 125 mL/hr, CONTINUOUS, Starting on Maritza 07/26/24 at 0730, Pre-op (day of surgery) * 0730 (Due) Medication Order 0.9 % sodium chloride infusion IntraVENous, at 5-250 mL/hr, PRN, if patient receiving piggyback infusions and maintenance fluids are not ordered OR KVO fluids to protect IV site / prevent frequent line interruptions/ long duration, Starting on Maritza 07/26/24 at 0700, For piggyback infusion, administer at same rate as piggyback fora total of 25 mL. Enter 25 mL into dose field and piggyback rate into rate field of order. If piggyback is infusing at a rate less than 100 mL/hr, enter 25 mL into dose field and 100 mL/hr into rate field of order. For KVO fluids, enter rate of 20 mL/hr or less into rate field of order., Pre-op (day of surgery) 0.9 % sodium chloride infusion IntraVENous, at 5-250 mL/hr, PRN, if patient receiving piggyback infusions and maintenance fluids are not ordered OR KVO fluids to protect IV site / prevent frequent line interruptions/ long duration, Starting on Maritza 07/26/24 at 1217, For piggyback infusion, administer at same rate as piggyback fora total of 25 mL. Enter 25 mL into dose field and piggyback rate into rate field of order. If piggyback is infusing at a rate less than 100 mL/hr, enter 25 mL into dose field and 100 mL/hr into rate field of order. For KVO fluids, enter rate of 20 mL/hr or less into rate field of order., PACU only fentaNYL (SUBLIMAZE) injection 25 mcg 25 mcg, IntraVENous, EVERY 5 MIN PRN, 4 doses, Starting on Maritza 07/26/24 at 1217, Until Discontinued, Pain Moderate (4-6), Phase I - Initial therapy for moderate pain., PACU only haloperidol lactate (HALDOL) injection 1 mg 1 mg, IntraVENous, ONCE PRN, 1 dose, Starting on [place]za 07/26/24 at 1217, Until Tue07/27/24 at 1217, Agitation, nausea, Secondary antiemetic therapy., PACU only HYDROmorphone HCl PF (DILAUDID) injection 0.5 mg 0.5 mg, IntraVENous, EVERY 5 MIN PRN, 4 doses, Starting on Mar[place]za 07/26/24 at 1217, Until Discontinued, Pain Severe (7-10), Phase I - Initial therapy for severe pain., PACU only lidocaine PF 1 % injection 1 mL 1 mL, IntraDERmal, ONCE PRN, 1 dose, Starting on Tue07/27/24 at 0000, Until Tue07/28/24 at 0000, IV start, Pre-op (day of surgery) metoclopramide (REGLAN) injection 10 mg 10 mg, IntraVENous, ONCE PRN, 1 dose, Starting on Maritza 07/26/24 at 1217, Until Tue07/27/24 at 1217,Nausea, Initial antiemetic therapy. Do not give if hx parkinsons disorder or extrapyramidal symptoms, PACU only naloxone 0.4 mg in 10 mL sodium chloride syringe IntraVENous, PRN, Opioid Reversal, Starting on Maritza 07/26/24 at 1217, PRN if respiratory rate is less than 6/min and patient is difficult to arouse then notify physician STAT. Mix 9 mL of sodium chloride 0.9% with 0.4 mg (1 mL) of naloxone (NARCAN) in 10 mL syringe. (Note: dilution is 0.04 mg/mL) Give 0.08 mg (2 mL of special dilution), slow IV push, repeat up to 0.4 mg (10 mL) or until patient isresponsive to physical stimulation and respiratory rate is equal to or greater than 6 breaths/min. Continue to observe, if no response within 3 minutes of administration of 0.4 mg (10 mL) total, repeat dose (0.4 mg as administered previously). Concentration 0.04 mg/mL, PACU only oxyCODONE (ROXICODONE) immediate release tablet 5 mg (COMPLETED) 5 mg, Oral, ONCE PRN, 1 dose, Starting on Maritza 07/26/24 at 1217, Until [place] 07/26/24 at 1634, Pain Moderate (4-6), Pain Severe (7-10), PHASE II, PACU only * 1634 (Given - Provider: Madeline Bautista RN) sodium chloride flush 0.9 % injection 5-40 mL 5-40 mL, IntraVENous, PRN, Starting on Maritza 07/26/24 at 0700, Until Discontinued, Line Care, After every IV line use, For Line Patency: Peripheral IV = 5 mL; Midline or Central Line = 10 mL/lumen. If following IV push medication, administer flush at same rate as the IV push. Flush volume is determined by type of infusion therapy being given. For non-viscous solutions use: Peripheral IV = 5 mL Midline or Central Line = 10 mL/lumen For viscous solutions (i.e. blood components, parenteral nutrition, contrast media, or after obtaining blood sample) use: Peripheral IV = 10 mL Midline or Central Line = 20 mL/lumen, Pre-op (day of surgery) sodium chloride flush 0.9 % injection 5-40 mL 5-40 mL, IntraVENous, PRN, Starting on Maritza 24 at 1217, Until Discontinued, Line Care, After every IV line use, For Line Patency: Peripheral IV = 5 mL; Midline or Central Line = 10 mL/lumen. If following IV push medication, administer flush at same rate as the IV push. Flush volume is determined by type of infusion therapy being given. For non-viscous solutions use: Peripheral IV = 5 mL Midline or Central Line = 10 mL/lumen For viscous solutions (i.e. blood components, parenteral nutrition, contrast media, or after obtaining blood sample) use: Peripheral IV = 10 mL Midline or Central Line = 20 mL/lumen, PACU only FOR RECORDS PERTAINING TO PATIENTS WHO ARE [...] BE BASED ON THE PRIMARY CLINICAL RECORDS. [employer] provides no warranty or guarantee of the accuracy or completeness of information in this document.
== END 2025-06-18 18:48 | disposition home or self-care (01) ==
LOC: LAB 18:47
PROVIDERS: Visit Provider Obstetrics & Gynecology
DX: Z01.419 Encounter for gynecological examination (general) (routine) without abnormal findings (principal)
CPT/HCPCS: 87624; 88175